=== PATIENT | female | born 1950 | race Caucasian/White ===

== ENCOUNTER 2016-07-05 17:21 | Inpatient (IN) ==
--- NOTE | 2016-07-05 17:32 | Emergency Department Note ---
Disposition Clinical Impression: Encounter for monitoring anti-arrhythmic therapy, Atrial fibrillation with RVR Disposition: Still a Patient Condition: Fair Referrals: Aleksandar Strickland DO [Primary Care Provider] - Time of Disposition: 18:52 Arrhythmia/Palpitations HPI - General Chief Complaint: ED Arrhythmia/Palpitations Stated Complaint: A-fib, JOLLY, high BP Time Seen by Provider: 07/05/16 17:26 Source: patient Mode of arrival: ambulatory Limitations: no limitations Nursing Notes Reviewed: Yes Vital Signs Reviewed: Yes - History of Present Illness HPI Narrative: Patient presents to the ED with the chief complaint of palpitations and shortness breath. Patient has history of A. fib and is on sotalol and Coumadin. States that she sees Dr. Ness, but has not seen him in almost a year. States that she will go in and out of A. fib every few months, but that it only lasts for a few minutes. She states that she felt like she went back into a yesterday night and woke up this morning and still felt like she was in it. She states it makes her feel very short of breath and that she does have some chest discomfort is radiating through to her back into her shoulder blades. States that she checked her blood pressure and it was very high. She also has a history of CHF, but has not been taking her Lasix lately due to to normal leg volumes and no shortness of breath. No fever or chills, abdominal pain, nausea , vomiting, diarrhea, changes in her vision. She states that she does get headaches but that these are from allergies and or no different than usual. - Related Data Home Medications Medication Instructions Recorded Confirmed Aspirin 81 mg PO DAILY 11/10/14 07/05/16 Cinnamon Bark [Cinnamon] 1,000 mg PO DAILY 10/15/15 07/05/16 Psyllium Husk [Daily Fiber] 2 tab PO DAILY 10/15/15 07/05/16 Warfarin [Coumadin] 2.5 mg PO DAILY 10/15/15 07/05/16 Omeprazole [PriLOSEC] 20 mg PO DAILY 11/29/15 07/05/16 Furosemide [Lasix] 40 mg PO DAILY PRN 01/19/16 07/05/16 Budesonide [Pulmicort Flexhaler 180 mcg IH DAILY 03/03/16 07/05/16 180mcg] Amlodipine [Norvasc] 5 mg PO DAILY 07/05/16 07/05/16 Previous Rx's Medication Instructions Recorded Losartan Potassium [Cozaar] 50 mg PO DAILY #30 tab 03/03/16 Sotalol [Betapace] 80 mg PO Q12HR #60 tablet 03/03/16 Allergies Allergy/AdvReac Type Severity Reaction Status Date / Time adhesive tape Allergy Hives Verified 07/05/16 18:59 All systems ED: reviewed and negative except as stated. Cardiovascular: Reports: chest pain, palpitations, dyspnea on exertion. Denies : edema, syncope Respiratory: Reports: dyspnea. Denies: cough Integumentary: Denies: rash Neurological: Reports: headache (chronic ) Past Medical History - Past Medical History Attestation: Yes The following information was validated with the patient. Source: patient Medical history: Reports: asthma, atrial fibrillation, cancer, CHF, hypertension Surgical history: Reports: breast surgery, cancer surgery, hysterectomy Psychiatric history: Reports: anxiety, depression WHARF LABORER history: Reports: no WHARF LABORER history - Social History Smoking Status: Never smoker Smokeless Tobacco Status: No Alcohol use: Reports: none Drug use: Reports: none Physical Exam - General Limitations: no limitations General appearance: alert, in no apparent distress - Head Head exam: atraumatic, normocephalic, normal inspection - Eye Eye exam: Present: normal appearance, PERRL, EOMI - ENT ENT exam: normal exam, normal oropharynx, mucous membranes moist - Neck Neck exam: Present: normal inspection, full ROM, trachea midline - Chest Chest inspection: Present: normal inspection, symmetric chest wall rise - Respiratory Respiratory exam: Present: normal lung sounds bilaterally - Cardiovascular Cardiovascular exam: Present: tachycardia, irregular rhythm, normal heart sounds - Abdominal Exam Abdominal exam: Present: soft, Non-Tender - Extremities Exam Extremities exam: Present: normal inspection, full ROM, normal capillary refill. Absent: tenderness, pedal edema - Neurological Exam Neurological exam: Present: alert, oriented X3 - Psychiatric Psychiatric exam: Present: normal affect, normal mood - Skin Skin exam: Present: warm, dry, intact, normal color Course Course Narrative: Very pleasant 65-year-old female presenting with breakthrough A. fib. She is already on room controlled with sotalol. She sees Dr. Ness, but has not seen him in about a year. She has been cardioverted 3 times previously. Having some chest discomfort as well. EKG shows A. fib as documented. We will check labs, chest x-ray and admit. - Reevaluation(s) Reevaluation #1: Spoke with the on-call local hazmat driver, who recommended admission to the medicine service. Monitor with telemetry overnight and they will likely increase her sotalol morning but may require another cardioversion. Patient agreeable with plan. Time: 18:51 Vital Signs Temperature 98.8 F 07/05/16 17:32 Pulse Rate 141 07/05/16 17:32 Respiratory Rate 18 07/05/16 17:32 Blood Pressure 145/101 07/05/16 17:32 O2 Sat by Pulse Oximetry 94 07/05/16 17:32 Temperature 98.8 F 07/05/16 17:32 Pulse Rate 109 07/05/16 18:46 Respiratory Rate 18 07/05/16 18:46 Blood Pressure 128/58 07/05/16 18:46 O2 Sat by Pulse Oximetry 96 07/05/16 18:46 Oxygen Delivery Oxygen Delivery Room Air Arrhythmia/Palpitations - Medical Records Medical records reviewed: Yes I reviewed the patient's medical records. - Lab Data Lab results reviewed: Yes I reviewed the patient's lab results. Result diagrams: 07/05/16 17:45 07/05/16 17:45 Lab Results 07/05/16 07/05/16 07/05/16 Range/Units 17:45 17:45 17:45 WBC 7.0 (4.3-11.1) K/mcL RBC 5.15 H (3.82-4.97) M/mcL Hgb 14.4 (11.5-15.4) g/dL Hct 43.7 (35.3-44.9) % MCV 84.9 (83.0-100.0) fL MCH 28.0 (28.0-33.3) pg MCHC 33.0 (31.6-35.5) g/dL RDW 14.6 H (11.5-14.5) % Plt Count 315 (140-400) K/mcL MPV 9.4 (9.4-12.4) fL Immature Gran % 0.3 (0-4) % Seg Neutrophils % 70.0 % Lymphocytes % 22.0 % Monocytes % 6.0 % Eosinophils % 1.4 % Basophils % 0.3 % Neutrophils # 4.9 (1.6-8.9) K/mcL Lymphocytes # 1.5 (0.6-4.6) K/mcL Monocytes # 0.4 (0.0-1.3) K/mcL Eosinophils # 0.1 (0.0-0.6) K/mcL Basophils # 0.0 (0.0-0.2) K/mcL Immature Plt Fraction 2.5 (1.1-6.1) % PT 18.6 H (9.4-12.1) Seconds INR 1.7 APTT 32.7 (26.0-36.0) Seconds Sodium 141 (136-145) mEq/L Potassium 4.6 H (3.5-4.5) mEq/L Chloride 106 (98-109) mEq/L Carbon Dioxide 25 (19-29) mEq/L BUN 22 H (7-20) mg/dL Creatinine 0.88 (0.57-1.11) mg/dL Est GFR ( Amer) > 60 (> 60) Est GFR (Non-Af Amer) > 60 (> 60) BUN/Creatinine Ratio 25 (6-26) Glucose 130 H (70-99) mg/dL Calculated Osmolality 297 (280-300) Calcium 9.1 (8.6-10.8) mg/dL Magnesium 2.5 (1.6-2.6) mg/dL Troponin I (0-0.03) ng/mL TSH 1.343 (0.350-4.840) mcIU/mL 07/05/16 Range/Units 17:45 WBC (4.3-11.1) K/mcL RBC (3.82-4.97) M/mcL Hgb (11.5-15.4) g/dL Hct (35.3-44.9) % MCV (83.0-100.0) fL MCH (28.0-33.3) pg MCHC (31.6-35.5) g/dL RDW (11.5-14.5) % Plt Count (140-400) K/mcL MPV (9.4-12.4) fL Immature Gran % (0-4) % Seg Neutrophils % % Lymphocytes % % Monocytes % % Eosinophils % % Basophils % % Neutrophils # (1.6-8.9) K/mcL Lymphocytes # (0.6-4.6) K/mcL Monocytes # (0.0-1.3) K/mcL Eosinophils # (0.0-0.6) K/mcL Basophils # (0.0-0.2) K/mcL Immature Plt Fraction (1.1-6.1) % PT (9.4-12.1) Seconds INR APTT (26.0-36.0) Seconds Sodium (136-145) mEq/L Potassium (3.5-4.5) mEq/L Chloride (98-109) mEq/L Carbon Dioxide (19-29) mEq/L BUN (7-20) mg/dL Creatinine (0.57-1.11) mg/dL Est GFR ( Amer) (> 60) Est GFR (Non-Af Amer) (> 60) BUN/Creatinine Ratio (6-26) Glucose (70-99) mg/dL Calculated Osmolality (280-300) Calcium (8.6-10.8) mg/dL Magnesium (1.6-2.6) mg/dL Troponin I 0.01 (0-0.03) ng/mL TSH (0.350-4.840) mcIU/mL - Radiology Data Radiology results reviewed: Yes I reviewed the patient's radiology results. - EKG Data EKG attestation: Yes I reviewed and interpreted this EKG. EKG results narrative: A. fib with RVR, rate 142, QRS 82, QTC 372, normal axis, ST segment depression that is likely rate dependent. No previous available at this time S.B.Ronda - Klaudia.[email or web address] Situation: Demographics, MOA Background: Presenting Complaint, Relevant PMH, Meds, & Allergies Assessment: Vital Signs, Course and respsone to treatment, Exam Concerns, Patient/Family Expectation, Pertinant Lab Results, Outstanding Labs Recommendation: Barrier(s) to disposition, Recommendation based on pending studies, treatments, or consults S.B.A.Madison Report Given to: Dr. Freddy Sanchez Repor Time: 19:02
--- NOTE | 2016-07-05 17:32 | Emergency Department Note ---
Disposition Clinical Impression: Encounter for monitoring anti-arrhythmic therapy, Atrial fibrillation with RVR Disposition: Still a Patient Condition: Fair General Adult HPI - General Stated complaint: A-fib, JOLLY, high BP Time Seen by Provider: 07/05/16 17:26 - Related Data Home Medications Medication Instructions Recorded Confirmed Aspirin 81 mg PO DAILY 11/10/14 07/05/16 Cinnamon Bark [Cinnamon] 1,000 mg PO DAILY 10/15/15 07/05/16 Psyllium Husk [Daily Fiber] 2 tab PO DAILY 10/15/15 07/05/16 Warfarin [Coumadin] 2.5 mg PO DAILY 10/15/15 07/05/16 Omeprazole [PriLOSEC] 20 mg PO DAILY 11/29/15 07/05/16 Furosemide [Lasix] 40 mg PO DAILY PRN 01/19/16 07/05/16 Budesonide [Pulmicort Flexhaler 180 mcg IH DAILY 03/03/16 07/05/16 180mcg] Amlodipine [Norvasc] 5 mg PO DAILY 07/05/16 07/05/16 Previous Rx's Medication Instructions Recorded Losartan Potassium [Cozaar] 50 mg PO DAILY #30 tab 03/03/16 Sotalol [Betapace] 120 mg PO Q12HR #60 tablet 07/08/16 Allergies Allergy/AdvReac Type Severity Reaction Status Date / Time adhesive tape Allergy Hives Verified 07/05/16 18:59 Past Medical History - Past Medical History Medical history: Reports: asthma, atrial fibrillation, cancer, CHF, hypertension Surgical history: Reports: breast surgery, cancer surgery, hysterectomy Psychiatric history: Reports: anxiety, depression HAND FOLDER history: Reports: no HAND FOLDER history - Social History Smoking Status: Never smoker Smokeless Tobacco Status: No Alcohol use: Reports: none Drug use: Reports: none Course Vital Signs Temperature 98.8 F 07/05/16 17:32 Pulse Rate 141 07/05/16 17:32 Respiratory Rate 18 07/05/16 17:32 Blood Pressure 145/101 07/05/16 17:32 O2 Sat by Pulse Oximetry 94 07/05/16 17:32 Temperature 99.1 F 07/08/16 11:11 Pulse Rate 58 07/08/16 11:11 Respiratory Rate 16 07/08/16 11:11 Blood Pressure 112/63 07/08/16 11:11 O2 Sat by Pulse Oximetry 93 07/08/16 11:11 Oxygen Delivery Oxygen Delivery Room Air Medical Decision Making - Lab Data Result diagrams: 07/06/16 04:43 07/06/16 04:43 Lab Results 07/05/16 07/05/16 07/05/16 Range/Units 17:45 17:45 17:45 WBC 7.0 (4.3-11.1) K/mcL RBC 5.15 H (3.82-4.97) M/mcL Hgb 14.4 (11.5-15.4) g/dL Hct 43.7 (35.3-44.9) % MCV 84.9 (83.0-100.0) fL MCH 28.0 (28.0-33.3) pg MCHC 33.0 (31.6-35.5) g/dL RDW 14.6 H (11.5-14.5) % Plt Count 315 (140-400) K/mcL MPV 9.4 (9.4-12.4) fL Immature Gran % 0.3 (0-4) % Seg Neutrophils % 70.0 % Lymphocytes % 22.0 % Monocytes % 6.0 % Eosinophils % 1.4 % Basophils % 0.3 % Neutrophils # 4.9 (1.6-8.9) K/mcL Lymphocytes # 1.5 (0.6-4.6) K/mcL Monocytes # 0.4 (0.0-1.3) K/mcL Eosinophils # 0.1 (0.0-0.6) K/mcL Basophils # 0.0 (0.0-0.2) K/mcL Immature Plt Fraction 2.5 (1.1-6.1) % PT 18.6 H (9.4-12.1) Seconds INR 1.7 APTT 32.7 (26.0-36.0) Seconds Sodium 141 (136-145) mEq/L Potassium 4.6 H (3.5-4.5) mEq/L Chloride 106 (98-109) mEq/L Carbon Dioxide 25 (19-29) mEq/L BUN 22 H (7-20) mg/dL Creatinine 0.88 (0.57-1.11) mg/dL Est GFR ( Amer) > 60 (> 60) Est GFR (Non-Af Amer) > 60 (> 60) BUN/Creatinine Ratio 25 (6-26) Glucose 130 H (70-99) mg/dL POC Glucose (58-89) Calculated Osmolality 297 (280-300) Calcium 9.1 (8.6-10.8) mg/dL Magnesium 2.5 (1.6-2.6) mg/dL Troponin I (0-0.03) ng/mL TSH 1.343 (0.350-4.840) mcIU/mL 07/05/16 07/05/16 07/06/16 Range/Units 17:45 20:37 04:43 WBC 7.2 (4.3-11.1) K/mcL RBC 5.51 H (3.82-4.97) M/mcL Hgb 15.3 (11.5-15.4) g/dL Hct 46.8 H (35.3-44.9) % MCV 84.9 (83.0-100.0) fL MCH 27.8 L (28.0-33.3) pg MCHC 32.7 (31.6-35.5) g/dL RDW 14.7 H (11.5-14.5) % Plt Count 319 (140-400) K/mcL MPV 9.7 (9.4-12.4) fL Immature Gran % 0.3 (0-4) % Seg Neutrophils % 64.4 % Lymphocytes % 26.4 % Monocytes % 6.5 % Eosinophils % 1.8 % Basophils % 0.6 % Neutrophils # 4.6 (1.6-8.9) K/mcL Lymphocytes # 1.9 (0.6-4.6) K/mcL Monocytes # 0.5 (0.0-1.3) K/mcL Eosinophils # 0.1 (0.0-0.6) K/mcL Basophils # 0.0 (0.0-0.2) K/mcL Immature Plt Fraction 2.6 (1.1-6.1) % PT (9.4-12.1) Seconds INR APTT (26.0-36.0) Seconds Sodium (136-145) mEq/L Potassium (3.5-4.5) mEq/L Chloride (98-109) mEq/L Carbon Dioxide (19-29) mEq/L BUN (7-20) mg/dL Creatinine (0.57-1.11) mg/dL Est GFR ( Amer) (> 60) Est GFR (Non-Af Amer) (> 60) BUN/Creatinine Ratio (6-26) Glucose (70-99) mg/dL POC Glucose 109 H (58-89) Calculated Osmolality (280-300) Calcium (8.6-10.8) mg/dL Magnesium (1.6-2.6) mg/dL Troponin I 0.01 (0-0.03) ng/mL TSH (0.350-4.840) mcIU/mL 07/06/16 07/06/16 Range/Units 04:43 04:43 WBC (4.3-11.1) K/mcL RBC (3.82-4.97) M/mcL Hgb (11.5-15.4) g/dL Hct (35.3-44.9) % MCV (83.0-100.0) fL MCH (28.0-33.3) pg MCHC (31.6-35.5) g/dL RDW (11.5-14.5) % Plt Count (140-400) K/mcL MPV (9.4-12.4) fL Immature Gran % (0-4) % Seg Neutrophils % % Lymphocytes % % Monocytes % % Eosinophils % % Basophils % % Neutrophils # (1.6-8.9) K/mcL Lymphocytes # (0.6-4.6) K/mcL Monocytes # (0.0-1.3) K/mcL Eosinophils # (0.0-0.6) K/mcL Basophils # (0.0-0.2) K/mcL Immature Plt Fraction (1.1-6.1) % PT 20.2 H (9.4-12.1) Seconds INR 1.8 APTT (26.0-36.0) Seconds Sodium 141 (136-145) mEq/L Potassium 4.0 (3.5-4.5) mEq/L Chloride 106 (98-109) mEq/L Carbon Dioxide 24 (19-29) mEq/L BUN 17 (7-20) mg/dL Creatinine 0.73 (0.57-1.11) mg/dL Est GFR ( Amer) > 60 (> 60) Est GFR (Non-Af Amer) > 60 (> 60) BUN/Creatinine Ratio 23 (6-26) Glucose 122 H (70-99) mg/dL POC Glucose (58-89) Calculated Osmolality 295 (280-300) Calcium 9.1 (8.6-10.8) mg/dL Magnesium 2.3 (1.6-2.6) mg/dL Troponin I (0-0.03) ng/mL TSH (0.350-4.840) mcIU/mL Critical Care Time Critical Care Time: Yes Total Critical Care Time: 30 Attestation: Patient presents with A. fib with RVR requiring IV Cardizem for rate control. Admitted to the medicines service Attestation Statement - Attestation Attestation: I examined this patient and my medical decision-making was reviewed with the HOUSING ASSISTANT/PA/Advanced Practice Nurse/Resident Physician. I agree with the documented findings, disposition and treatment plan as described except to the extent set forth below. [id number] time provided Patient complains of palpitations. She has history of atrial fibrillation and takes Coumadin. EKG reviewed by me showing a tachycardic narrow complex rhythm. Patient seen and evaluated in conjunction with the resident physician Dr. Benito
[2016-07-05 17:54] LABS: Basophils % 0.3 %; Eosinophils # 0.1 K/mcL (0.0-0.6); Eosinophils % 1.4 %; Hematocrit 43.7 % (35.3-44.9); Hemoglobin 14.4 g/dL (11.5-15.4); Immature Granulocytes % 0.3 % (0-4); Immature Platelets 2.5 % (1.1-6.1); Lymphocytes # 1.5 K/mcL (0.6-4.6); Mean Corpuscular Volume 84.9 fL (83.0-100.0); Mean Platelet Volume 9.4 fL (9.4-12.4); Monocytes # 0.4 K/mcL (0.0-1.3); Neutrophils # 4.9 K/mcL (1.6-8.9); Platelet Count 315 K/mcL (140-400); Red Blood Count 5.15 M/mcL (3.82-4.97); Red Cell Distribution Width 14.6 % (11.5-14.5)
[2016-07-05 17:59] LABS: INR 1.7; Prothrombin Time 18.6 Seconds (9.4-12.1)
[2016-07-05 18:01] LABS: Activated Partial Thrombo Time 32.7 Seconds (26.0-36.0)
[2016-07-05 18:06] LABS: BUN/Creatinine Ratio 25 (6-26); Blood Urea Nitrogen 22 mg/dL (7-20); Calcium 9.1 mg/dL (8.6-10.8); Carbon Dioxide 25 mEq/L (19-29); Chloride 106 mEq/L (98-109); Glucose 130 mg/dL (70-99); Magnesium 2.5 mg/dL (1.6-2.6); Osmolality,Calculated 297 (280-300); Potassium 4.6 mEq/L (3.5-4.5); Sodium 141 mEq/L (136-145); eGFR For African Americans > 60 (> 60); eGFR For Non-African Americans > 60 (> 60)
[2016-07-05 18:29] LABS: Thyroid Stimulating Hormone 1.343 mcIU/mL (0.350-4.840)
[2016-07-05] MEDS ORDERED: Naloxone 0.4 MG/ML INJ IVP PRN (21:27)
[2016-07-05] MEDS ORDERED: Ondansetron 4 MG/2 ML VIAL IVP PRN (21:27)
[2016-07-05] MEDS ORDERED: Acetaminophen 325 MG TABLET PO PRN (21:27)
[2016-07-05] MEDS ORDERED: Furosemide 40 MG TABLET PO PRN (21:31)
[2016-07-05] MEDS ORDERED: *HR* Warfarin 2.5 MG TABLET PO ONE (22:00)
--- NOTE | 2016-07-05 22:04 | Internal Med History&Physical ---
Date of Encounter: 07/05/16 Time of Encounter: 21:00 Assessment and Plan (1) Atrial fibrillation with RVR Current visit: Yes Status: Acute Patient has history of A. fib. She is on Coumadin for anticoagulation and sotalol for rate control. - We will put the patient on Cardizem drip, closely monitor heart rate. - May switch Cardizem drip to by mouth medication if heart rate is well controlled. - Check TSH, magnesium, BMP. Optimize electrolytes. - Closesly monitor patient. Patient is at high risk because she is on Cardizem drip, need close monitoring. (2) DVT prophylaxis Current visit: No Status: Acute Patient is on Coumadin (3) HTN (hypertension) Current visit: No Status: Acute BP is stable. Continue home medication Qualifiers: Hypertension type: essential hypertension Qualified Code(s): I10 - Essential (primary) hypertension Internal Medicine - H&P: HPI Chief complaint: Palpitation Admitted From: Home Plans for Post Hospital Care: Home History of present illness: Ms. Merida is a 65 year old female with known history of A. fib presented to the ER for palpitations. Patient said that the palpitation started suddenly when she was in her eye doctor office. Heart rate was 158 at that time. With mild shortness of breath. Patient denies chest pain, nausea, vomiting. She denies recent URI symptoms. No cough, no fever. Patient came to ER and was found a Fib with a rapid ventricular response. She was admitted for further management. I have discussed CODE STATUS with her in the emergency room. She has a CODE STATUS of full code. Past Med Surg Social Fam HX - Past Medical History Medical history: arthritis, asthma, atrial fibrillation, cancer, CHF, hypertension, TIA Psychiatric history: anxiety, depression - Past Surgical History Surgical History: breast surgery, cancer surgery, hysterectomy - Social History Smoking Status: Never smoker Smokeless Tobacco Status: No Alcohol use: none Drug use: none - Family History Father Family Member Ethnicity: Non- Living Status: Hx Family Cardiac Disorders: Yes (hypertension) Hx Family Respiratory Disorders: No Hx Family Cancer: No Hx Family GI Disorders: No Hx Family Endocrine Disorder: Yes (diabetes) Hx Family Neuromuscular Disorders: No Hx Family Neurologic Disorders: No Hx Family HEENT Disorders: No Hx Family Autoimmune Disorders: No Mother Adopted: [place]: Christie Age: 88 Family Member Ethnicity: Non- Living Status: Still Living Hx Family Cardiac Disorders: Yes (Afib) Hx Family Respiratory Disorders: No Hx Family Cancer: Yes (Colon) Hx Family GI Disorders: Yes (Cancer) Hx Family Genitourinary Disorders: Yes (UTI) Hx Family Endocrine Disorder: Yes Hx Family Musculoskeletal Disorders: No Hx Family Neuromuscular Disorders: Yes (Stroke 2016) Hx Family Neurologic Disorders: No Hx Family HEENT Disorders: No Hx Family Autoimmune Disorders: No Hx Family Reproductive Disorders: No Hx Family Psychosocial Disorders: No Hx Family Medical Disorders: No Internal Medicine - H&P: Meds Aspirin 81 mg PO DAILY 11/10/14 [History] Cinnamon Bark [Cinnamon] 1,000 mg PO DAILY 10/15/15 [History] Psyllium Husk [Daily Fiber] 2 tab PO DAILY 10/15/15 [History] Warfarin [Coumadin] 2.5 mg PO DAILY 10/15/15 [History] Omeprazole [PriLOSEC] 20 mg PO DAILY 11/29/15 [History] Furosemide [Lasix] 40 mg PO DAILY PRN 01/19/16 [History] Budesonide [Pulmicort Flexhaler 180mcg] 180 mcg IH DAILY 03/03/16 [History] Losartan Potassium [Cozaar] 50 mg PO DAILY #30 tab 03/03/16 [Rx] Sotalol [Betapace] 80 mg PO Q12HR #60 tablet 03/03/16 [Rx] Amlodipine [Norvasc] 5 mg PO DAILY 07/05/16 [History] Allergies adhesive tape Allergy (Verified 07/05/16 18:59) Hives All Systems PM: A 10-system review of systems was performed and is negative for pertinent findings except as documented above in the HPI. - Constitutional Constitutional: no chills, no fever(s), no night sweats - EENT Eyes: no change in vision, no discharge, no pain, no photophobia Ears: no ear discharge, no ear pain, no tinnitus Nose, mouth and throat: no dysphagia, no nasal discharge, no neck pain, no sore throat - Cardiovascular Cardiovascular ROS IM: palpitations, no chest pain, no diaphoresis, no dyspnea, no lightheadedness, no syncope - Respiratory Respiratory: no cough, no dyspnea, no wheezing, no excessive phlegm production - Gastrointestinal Gastrointestinal: no abdominal pain, no diarrhea, no hematemesis, no hematochezia, no melena, no nausea, no vomiting - Genitourinary Genitourinary: no change in urinary stream, no dysuria, no flank pain, no hematuria - Musculoskeletal Musculoskeletal ROS IM: no numbness, no tingling - Integumentary Integumentary IM: no rash, no unusual bruising - Neurological Neurological ROS: no confusion, no convulsions, no focal weakness, no numbness, no tingling, no tremor(s) - Hematologic/Lymphatic Hematologic/Lymphatic: no easy bruising - Constitutional Vitals: Temp Pulse Resp BP Pulse Ox 97.7 F 94 22 141/93 96 07/05/16 21:33 07/05/16 21:33 07/05/16 21:33 07/05/16 21:33 07/05/16 21:33 General appearance: Present: A&O X 3, no acute distress, answers questions appropriately - Head Head exam: Present: atraumatic, normocephalic - Eye Eye exam: Present: PERRL, conjuntiva pink, sclera anicteric Pupils: Present: PERRL - Neck Neck exam general surgery: Present: supple, trachea midline. Absent: lymphadenopathy - Respiratory Respiratory exam: Present: CTAB. Absent: accessory muscle use, rales, rhonchi, wheezes - Cardiovascular Cardiovascular exam: Present: irregular rhythm, +S1, +S2, tachycardia. Absent: diastolic murmur, gallop, rubs, systolic murmur - GI/Abdominal GI/Abdominal exam: Present: normal bowel sounds, soft, no peritoneal signs. Absent: distended, tenderness - Extremities Exam Extremities exam: Present: warm, radial pulses palpable and symetrical. Absent : calf tenderness, cyanotic, pedal edema - Neurological Exam Neurological exam: Present: CN II-XII intact, oriented X3, no focal deficits. Absent: pronater drift, facial droop, speech deficit - Skin Skin exam: Present: dry, intact Internal Med - H&P Results - Labs CBC & Chem 7: 07/05/16 17:45 07/05/16 17:45 - EKG Data -: EKG Interpreted by Myself Rate: tachycardia
[2016-07-06 06:25] LABS: Basophils % 0.6 %; Eosinophils # 0.1 K/mcL (0.0-0.6); Eosinophils % 1.8 %; Hematocrit 46.8 % (35.3-44.9); Hemoglobin 15.3 g/dL (11.5-15.4); Immature Granulocytes % 0.3 % (0-4); Immature Platelets 2.6 % (1.1-6.1); Lymphocytes # 1.9 K/mcL (0.6-4.6); Lymphocytes % 26.4 %; Mean Corpuscular HGB Conc 32.7 g/dL (31.6-35.5); Mean Corpuscular Hemoglobin 27.8 pg (28.0-33.3); Mean Corpuscular Volume 84.9 fL (83.0-100.0); Mean Platelet Volume 9.7 fL (9.4-12.4); Monocytes # 0.5 K/mcL (0.0-1.3); Monocytes % 6.5 %; Neutrophils # 4.6 K/mcL (1.6-8.9); Platelet Count 319 K/mcL (140-400); Red Blood Count 5.51 M/mcL (3.82-4.97); Red Cell Distribution Width 14.7 % (11.5-14.5); Segmented Neutrophils % 64.4 %
[2016-07-06 06:26] LABS: INR 1.8; Prothrombin Time 20.2 Seconds (9.4-12.1)
[2016-07-06 06:59] LABS: BUN/Creatinine Ratio 23 (6-26); Blood Urea Nitrogen 17 mg/dL (7-20); Calcium 9.1 mg/dL (8.6-10.8); Carbon Dioxide 24 mEq/L (19-29); Chloride 106 mEq/L (98-109); Glucose 122 mg/dL (70-99); Magnesium 2.3 mg/dL (1.6-2.6); Osmolality,Calculated 295 (280-300); Sodium 141 mEq/L (136-145); eGFR For African Americans > 60 (> 60); eGFR For Non-African Americans > 60 (> 60)
[2016-07-06] MEDS: Beclomethasone 80mcg MDI IH SCH ×2 (07:57→21:28)
[2016-07-06] MEDS: Aspirin 81 MG TAB.CHEW PO SCH (09:05)
[2016-07-06] MEDS: amLODIPine 5 MG TABLET PO SCH (09:06)
--- NOTE | 2016-07-06 10:35 | Electrocardiograph Report ---
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
--- NOTE | 2016-07-06 13:44 | Internal Med Progress Note ---
Date of Encounter: 07/06/16 Time of Encounter: 10:30 - Assessment and plan (1) Atrial fibrillation with rapid ventricular response Current Visit: No Status: Resolved Assessment and plan: Rate now controlled. By mouth Cardizem was added to her regimen. Telemetry reviewed. Heart rate has been averaging in the 70s today. We will keep an observe her overnight. She states that this has happened in the past and she was started on metoprolol and she states that made her heart rate and her blood pressure go too low. We will observe overnight. In further review of her chart , patient has had several recent cardioversions, will bring cardiology on board (2) Diabetes Current Visit: No Status: Chronic Assessment and plan: Appears well controlled at home. Continue sliding scale while admitted. Qualifiers: Diabetes mellitus type: type 2 Diabetes mellitus complication status: with circulatory complication Diabetes mellitus complication detail: with other circulatory complications Diabetes mellitus senior care insulin use: without terminal press operator use Qualified Code(s): E11.59 - Type 2 diabetes mellitus with other circulatory complications (3) HTN (hypertension) Current Visit: No Status: Chronic Assessment and plan: Controlled. We will continue to trend. At home, patient is on amlodipine 5 mg daily, sotalol 80 mg twice a day, losartan 50 mg daily, furosemide 40 mg daily as needed. Qualifiers: Hypertension type: essential hypertension Qualified Code(s): I10 - Essential (primary) hypertension (4) Atrial fibrillation Current Visit: No Status: Chronic Qualifiers: Atrial fibrillation type: paroxysmal Qualified Code(s): I48.0 - Paroxysmal atrial fibrillation (5) CHF (congestive heart failure) Current Visit: No Status: Chronic Assessment and plan: Euvolemic on examination. Echocardiogram from January 2016 reviewed ejection fraction 60% with indeterminant diastolic function. She is on diuretics at home. Chronic diastolic heart failure without acute exacerbation. Qualifiers: Congestive heart failure type: diastolic Congestive heart failure chronicity: chronic Qualified Code(s): I50.32 - Chronic diastolic (congestive ) heart failure (6) DVT prophylaxis Current Visit: No Status: Acute Assessment and plan: Slightly subtherapeutic on Coumadin with an INR of 1.8, pharmacy to dose. IPC' s ordered in the meantime- can DC if she becomes therapeutic - Subjective Interval history: Patient seen and examined. On examination, patient sitting upright in bed conversing with her sister. Patient denies pain or shortness of breath. She states she feels a lot better. She states she is eating well. - Constitutional Vitals: Temp Pulse Resp BP Pulse Ox 97.4 F L 58 15 130/74 95 07/06/16 11:18 07/06/16 11:18 07/06/16 11:18 07/06/16 11:18 07/06/16 11:18 General appearance: Present: A&O X 3, pleasant, no acute distress, answers questions appropriately - Head Head exam: Present: atraumatic, normocephalic - Eye Eye exam: Present: PERRL, conjuntiva pink, sclera anicteric Pupils: Present: PERRL - Neck Neck exam general surgery: Present: supple, trachea midline. Absent: lymphadenopathy - Respiratory Respiratory exam: Present: CTAB. Absent: accessory muscle use, rales, respiratory distress, rhonchi, wheezes - Cardiovascular Cardiovascular exam: Present: RRR, +S1, +S2. Absent: diastolic murmur, gallop, rubs, systolic murmur - GI/Abdominal GI/Abdominal exam: Present: normal bowel sounds, soft, no peritoneal signs. Absent: distended, tenderness - Extremities Exam Extremities exam: Present: warm, radial pulses palpable and symetrical. Absent : calf tenderness, cyanotic, pedal edema - Neurological Exam Neurological exam: Present: alert, CN II-XII intact, normal gait, oriented X3, no focal deficits, strengths equal and symetr throughout. Absent: pronater drift, facial droop, speech deficit - Skin Skin exam: Present: dry, intact, normal color, warm Internal Medicine: Result - Labs CBC & Chem 7: 07/06/16 04:43 07/06/16 04:43 Labs: Short CBC 07/06/16 Range/Units 04:43 WBC 7.2 (4.3-11.1) K/mcL Hgb 15.3 (11.5-15.4) g/dL Hct 46.8 H (35.3-44.9) % Plt Count 319 (140-400) K/mcL Neutrophils # 4.6 (1.6-8.9) K/mcL BMP 07/06/16 04:43 Sodium 141 Potassium 4.0 Chloride 106 Carbon Dioxide 24 BUN 17 Creatinine 0.73 Glucose 122 H Calcium 9.1 - ABG Interpretation ABG results: PT/INR, D-dimer PT 20.2 Seconds (9.4-12.1) H 07/06/16 04:43 Consult Discharge Plan - Plan
--- NOTE | 2016-07-06 15:33 | Cardiology Consult Note ---
<Kin Ray - Last Filed: 07/06/16 16:24> Date of Encounter: 07/06/16 Time of Encounter: 15:26 Assessment and Plan (1) Atrial fibrillation with rapid ventricular response Current Visit: Yes Status: Acute Patient with known history of afib on coumadin and history of three prior cardioversions who presented to the ED with complaint of palpitations and shortness of breath and determined to be in afib with rvr, rate 142 on ekg. CXR revealed no acute cardio pulm process. Patient was started on cardizem drip, overnight rates controlled. Continued home dose of sotalol. This morning patient was started on cardizem po and continue home dose of sotalol. Vitals: Temp 97.4, Pulse 58, Resp 15, bp 130/74, 95% on room air. Troponin 0.01, Potassium 4.0, Magnesium 2.3, TSH 1.343, PT 20.2, INR 1.8 Last echo completed 01/10/16 revealed LVEF 60, normal LV size and function, inderterminate diastolic function, mildly dilated RV with normal function, mild mitral regurg, moderate tricuspid regurg. LHC 10/19/15 revealed minimal CAD, EF 65%. It appears that patient is now in normal sinus rhythm with rate 60 and stable bp. Repeat EKG reveals normal sinus rhythm. Patient denies lightheadedness, dizziness, headaches, weakness, chest pain or pressure, palpitations, or shortness of breath since rate controlled and while ambulating down hallways. History of bradycardic episodes on cardizem and Toprol, and failed Rhythmol therapy prior. According to [facility], Toprol was discontinued on 02/29/16 due to bradycardia. Inconsistent with eCW med list, but consistent with patient not taking Toprol. Patient started on Sotalol on 02/28/16. Increase Sotalol to 120mg q12h. Discontinue cardizem. Continue Coumadin. Repeat EKG in the morning. Follow up with Cardiology as outpatient with Dr. Ness in afib clinic. Cardio will follow up with the patient tomorrow morning. (2) HTN (hypertension) Current Visit: Yes Status: Chronic Bp 130/74, controlled and stable. Continue home medications for chronic disease management. Losartan and Norvasc. Qualifiers: Hypertension type: essential hypertension Qualified Code(s): I10 - Essential (primary) hypertension Discussion w patient/family: The assessment and plan as outlined above was discussed with the patient and/or family members who expressed understanding and agreement. All questions were answered. Thank you for involving us in the care of your patient. Please call with any questions. History of Present Illness Consult date: 07/06/16 Requesting physician: Jaida Felix Consult reason: afib, new medication regimen Chief complaint: Palpitations History of present illness: Ms. Merida is a 65 year old female with history of afib on coumadin, hypertension, history of TIA, and history of breast cancer s/p mastectomy who presented to the ED on 07/05/16 with complaint of palpitations and shortness of breath that started suddenly while at the doctors office. Patient reports that she had noticed her heart going in and out of rhythm over night and in the morning prior to arrival. She noted that when she took her bp it was reading errors. Patient was determined to be in afib rvr with rate of 142 on ekg. CXR revealed no acute cardiopulm process. Patient did also report some mild headaches that she associates with her seasonal allergies. Patient denies fevers, chills, sweats, nausea, vomiting, chest pain or pressure, weakness, or loss of sensation. Patient was started on Cardizem drip and transitioned to PO Cardizem this morning after rates were controlled overnight. Patient denies fevers, chills, sweats, changes in vision or hearing, lightheadedness, dizziness, nausea, vomiting, chest pain or pressure, palpitations, shortness of breath, abdominal pain, changes in bowels or bladder, weakness, or loss of sensation overnight. Patient has been ambulating up and down the hallway without chest pain or pressure, palpitations, or shortness of breath. Cardio was consulted to evaluate patient with afib and new medication regimen now to include cardizem po. Past Med Surg Social Fam HX - Past Medical History Medical history: arthritis, asthma, atrial fibrillation, cancer, CHF, hypertension, TIA Psychiatric history: anxiety, depression - Past Surgical History Surgical History: breast surgery, cancer surgery, hysterectomy - Social History Smoking Status: Never smoker Smokeless Tobacco Status: No Alcohol use: none Drug use: none - Family History Father Family Member Ethnicity: Non- Living Status: Hx Family Cardiac Disorders: Yes (hypertension) Hx Family Respiratory Disorders: No Hx Family Cancer: No Hx Family GI Disorders: No Hx Family Endocrine Disorder: Yes (diabetes) Hx Family Neuromuscular Disorders: No Hx Family Neurologic Disorders: No Hx Family HEENT Disorders: No Hx Family Autoimmune Disorders: No Mother Adopted: [place]: Christie Age: 88 Family Member Ethnicity: Non- Living Status: Still Living Hx Family Cardiac Disorders: Yes (Afib) Hx Family Respiratory Disorders: No Hx Family Cancer: Yes (Colon) Hx Family GI Disorders: Yes (Cancer) Hx Family Genitourinary Disorders: Yes (UTI) Hx Family Endocrine Disorder: Yes Hx Family Musculoskeletal Disorders: No Hx Family Neuromuscular Disorders: Yes (Stroke 2016) Hx Family Neurologic Disorders: No Hx Family HEENT Disorders: No Hx Family Autoimmune Disorders: No Hx Family Reproductive Disorders: No Hx Family Psychosocial Disorders: No Hx Family Medical Disorders: No Medications and Allergies Aspirin 81 mg PO DAILY 11/10/14 [History] Cinnamon Bark [Cinnamon] 1,000 mg PO DAILY 10/15/15 [History] Psyllium Husk [Daily Fiber] 2 tab PO DAILY 10/15/15 [History] Warfarin [Coumadin] 2.5 mg PO DAILY 10/15/15 [History] Omeprazole [PriLOSEC] 20 mg PO DAILY 11/29/15 [History] Furosemide [Lasix] 40 mg PO DAILY PRN 01/19/16 [History] Budesonide [Pulmicort Flexhaler 180mcg] 180 mcg IH DAILY 03/03/16 [History] Losartan Potassium [Cozaar] 50 mg PO DAILY #30 tab 03/03/16 [Rx] Sotalol [Betapace] 80 mg PO Q12HR #60 tablet 03/03/16 [Rx] Amlodipine [Norvasc] 5 mg PO DAILY 07/05/16 [History] Allergies adhesive tape Allergy (Verified 07/05/16 18:59) Hives All Systems Review: A 10-system review of systems was performed and is negative for pertinent findings except as documented above in the HPI. - Constitutional Constitutional: headache(s), no chills, no fever(s), no night sweats, no weakness - EENT Eyes: no blurred vision, no loss of vision Nose, mouth and throat: no dysphagia - Cardiovascular Cardiovascular: as per HPI, dyspnea at rest, irregular heart rhythm, palpitations, no chest pain at rest, no chest pain with exertion, no diaphoresis , no dyspnea on exertion, no radiating jaw, neck or arm pain, no lightheadedness , no syncope - Respiratory Respiratory: dyspnea, no cough - Gastrointestinal Gastrointestinal: no abdominal pain, no constipation, no diarrhea, no nausea - Genitourinary Genitourinary: no dysuria - Neurological Neurological: no abnormal speech, no dizziness, no focal weakness, no loss of vision, no memory loss, no numbness, no syncope, no tingling Physical Examination General: Conversant, No Apparent Distress HEENT: Atraumatic, Normocephaly, Mucus Membranes Moist Neck: No JVD, Normal carotid pulses Cardiac: Reg Rate and Rhythm, Normal S1 and S2, No Murmur Lungs: Normal Breath Sounds, No Wheeze, Rales, Rhonchi Neuro: Alert and responsive, No focal deficits noted Abdomen: Soft, Non-Tender Skin: No rashes noted on visualized skin Musculoskeletal: No Chest Wall Tenderness Extremities: No Clubbing, No Cyanosis, No Edema, Normal Pulses Results 07/06/16 04:43 07/06/16 04:43 Consult Discharge Plan - Plan Referrals: Aleksandar Strickland DO [Primary Care Provider] - 07/14/16 12:00 pm <Lisa Burnett - Last Filed: 07/06/16 16:46> Date of Encounter: 07/06/16 Assessment and Plan Discussion w patient/family: The assessment and plan as outlined above was discussed with the patient and/or family members who expressed understanding and agreement. All questions were answered. Thank you for involving us in the care of your patient. Please call with any questions. History of Present Illness History of present illness: Ms. Merida is a 65 year old female All Systems Review: A 10-system review of systems was performed and is negative for pertinent findings except as documented above in the HPI. Physical Examination Vital Signs, Last 4 Hours Temp Pulse Resp BP Pulse Ox 07/06/16 15:32 97.7 F 58 14 113/69 95 Results 07/06/16 04:43 07/06/16 04:43 - Attending Attestation I examined this patient and my medical decision-making was reviewed with the ATTIC FANS MECHANIC/PA/Advanced Practice Nurse/Resident Physician. I agree with the documented findings, disposition and treatment plan. Ms. Merida presents with AFIB RVR. Previously, she had failed rhythmol therapy and sotalol was initiated in February 2016. Due to bradycardia, cardizem and toprol were stopped at that time. She states that she's had 3 to 4 episodes of PAF lasting for about 10 minutes since Sotalol was started in addition to her presenting symptoms prompting this visit. Given ongoing symptoms, we have recommended uptitrating sotalol to 120mg BID. We will monitor for bradycardia. She is anticoagulated on coumadin. INR is 1.8 today. Primary team has increased her coumadin dose. She is back in NSR.
[2016-07-06] MEDS ORDERED: Warfarin perPT PO PRN (18:00)
[2016-07-06] MEDS: *HR* Warfarin 2.5 MG TABLET PO SCH (18:55)
[2016-07-07 05:54] LABS: INR 2.2; Prothrombin Time 23.9 Seconds (9.4-12.1)
[2016-07-07] MEDS: Beclomethasone 80mcg MDI IH SCH ×2 (07:54→21:48)
--- NOTE | 2016-07-07 08:14 | Cardiology Progress Note ---
<Kin Ray - Last Filed: 07/07/16 10:43> Date of Encounter: 07/07/16 Time of Encounter: 08:12 Assessment and Plan (1) Atrial fibrillation with rapid ventricular response Current Visit: Yes Status: Acute Patient with known history of afib on coumadin and history of three prior cardioversions who presented to the ED with complaint of palpitations and shortness of breath and determined to be in afib with rvr, rate 142 on ekg. CXR revealed no acute cardio pulm process. Patient was discontinued on Cardizem due to history of bradycardic episodes and continued on Sotalol at increased dose of 120mg bid. Overnight patient reports doing well with no new complaints. Telemetry reviewed. Normal sinus rhythm, rate between 48-111, average 61 bpm. EKG revealed sinus bradycardia, rate 50bpm, prolonged QT interval. Pr int 177ms , QRS 75 ms, QT/QTc 491-466 ms, P-R-T axes 55 38 49. PT 23.9, INR 2.2 Vitals: Temp 97.5, Pulse 55, Resp 20, bp 124-69, 94% on room air. Last echo completed 01/10/16 revealed LVEF 60, normal LV size and function, inderterminate diastolic function, mildly dilated RV with normal function, mild mitral regurg, moderate tricuspid regurg. LHC 10/19/15 revealed minimal CAD, EF 65%. History of bradycardic episodes on cardizem and Toprol, and failed Rhythmol therapy prior. According to [employer], Toprol was discontinued on 02/29/16 due to bradycardia. Inconsistent with eCW med list, but consistent with patient not taking Toprol. Patient started on Sotalol on 02/28/16. Increased dose of sotalol 07/06/16 evening. Continue Sotalol 120mg bid. Continue Coumadin. Follow up with Cardiology as outpatient with Dr. Ness in afib clinic. (2) HTN (hypertension) Current Visit: Yes Status: Chronic Bp 124/69, controlled and stable. Continue home medications for chronic disease management. Losartan and Norvasc. Qualifiers: Hypertension type: essential hypertension Qualified Code(s): I10 - Essential (primary) hypertension Discussion w patient/family: The assessment and plan as outlined above was discussed with the patient and/or family members who expressed understanding and agreement. All questions were answered. Thank you for involving us in the care of your patient. Please call with any questions. Subjective Principal diagnosis: Afib Interval history: Patient reports doing well overnight, no new complaints. Patient denies lightheadedness, dizziness, chest pain or pressure, palpitations, shortness of breath, and weakness. Patient denies fevers, chills, sweats, nausea, vomiting, abdominal pain, changes in bowels or bladder, or loss of sensation. Telemetry reviewed. Rate between 48-111, average 61bpm, continues to be sinus rhythm. Objective Vital Signs, Last 4 Hours Temp Pulse Resp BP Pulse Ox 07/07/16 07:13 97.5 F L 55 20 124/69 94 General: Conversant, No Apparent Distress HEENT: Atraumatic, Normocephaly, Mucus Membranes Moist Neck: No JVD, Normal carotid pulses Cardiac: Reg Rate and Rhythm, Normal S1 and S2, No Murmur Lungs: Normal Breath Sounds, No Wheeze, Rales, Rhonchi Neuro: Alert and responsive, No focal deficits noted Abdomen: Soft, Non-Tender Skin: No rashes noted on visualized skin Musculoskeletal: No Chest Wall Tenderness Extremities: No Clubbing, No Cyanosis, No Edema, Normal Pulses Results 07/06/16 04:43 07/06/16 04:43 Lab Results 07/07/16 05:35 INR 2.2 Consult Discharge Plan - Plan Referrals: Aleksandar Strickland DO [Primary Care Provider] - 07/14/16 12:00 pm <Lisa Burnett - Last Filed: 07/07/16 14:34> Date of Encounter: 07/07/16 Assessment and Plan Discussion w patient/family: Ms. Meirda has no new complaints. Heart rates are stable. No new ECG changes. Continue sotalol. She is anticoagulated and therapeutic on coumadin. Objective Vital Signs, Last 4 Hours Temp Pulse Resp BP Pulse Ox 07/07/16 11:04 97.5 F L 50 20 116/80 94 Results 07/06/16 04:43 07/06/16 04:43 Lab Results 07/07/16 05:35 INR 2.2
[2016-07-07] MEDS: Aspirin 81 MG TAB.CHEW PO SCH (08:21)
[2016-07-07] MEDS: amLODIPine 5 MG TABLET PO SCH (08:21)
--- NOTE | 2016-07-07 12:22 | Internal Med Progress Note ---
Date of Encounter: 07/07/16 Time of Encounter: 12:21 - Assessment and plan (1) Atrial fibrillation with rapid ventricular response Current Visit: Yes Status: Acute Assessment and plan: Rate now controlled. sotalol increased by cardio, tolerated Continue same Continue Coumadin INR therapeutic (2) Diabetes Current Visit: No Status: Chronic Assessment and plan: Appears well controlled at home. Continue sliding scale while admitted. Qualifiers: Diabetes mellitus type: type 2 Diabetes mellitus complication status: with circulatory complication Diabetes mellitus complication detail: with other circulatory complications Diabetes mellitus director long term care insulin use: without director long term care use Qualified Code(s): E11.59 - Type 2 diabetes mellitus with other circulatory complications (3) HTN (hypertension) Current Visit: Yes Status: Chronic Assessment and plan: Controlled. Continue amlodipine 5 mg daily, sotalol 120 mg twice a day, losartan 50 mg daily, furosemide 40 mg daily as needed. Qualifiers: Hypertension type: essential hypertension Qualified Code(s): I10 - Essential (primary) hypertension (4) CHF (congestive heart failure) Current Visit: Yes Status: Chronic Assessment and plan: Euvolemic on examination. Echocardiogram from January 2016 reviewed ejection fraction 60% with indeterminant diastolic function. She is on diuretics at home. Chronic diastolic heart failure without acute exacerbation. Qualifiers: Congestive heart failure type: diastolic Congestive heart failure chronicity: chronic Qualified Code(s): I50.32 - Chronic diastolic (congestive ) heart failure (5) DVT prophylaxis Current Visit: Yes Status: Acute Assessment and plan: INR 2.2 - Subjective Interval history: Seen and evaluated at bedside she is being managed for afib with RVR HR in the low 50s, asymptomatic - Constitutional Vitals: Temp Pulse Resp BP Pulse Ox 97.5 F L 50 20 116/80 94 07/07/16 11:04 07/07/16 11:04 07/07/16 11:04 07/07/16 11:04 07/07/16 11:04 General appearance: Present: A&O X 3, pleasant, no acute distress, answers questions appropriately - Head Head exam: Present: atraumatic, normocephalic - Eye Eye exam: Present: PERRL, conjuntiva pink, sclera anicteric Pupils: Present: PERRL - Neck Neck exam general surgery: Present: supple, trachea midline. Absent: lymphadenopathy - Respiratory Respiratory exam: Present: CTAB. Absent: accessory muscle use, rales, rhonchi, wheezes - Cardiovascular Cardiovascular exam: Present: RRR, +S1, +S2. Absent: diastolic murmur, gallop, rubs, systolic murmur - GI/Abdominal GI/Abdominal exam: Present: normal bowel sounds, soft, no peritoneal signs. Absent: distended, tenderness - Extremities Exam Extremities exam: Present: warm, radial pulses palpable and symetrical. Absent : calf tenderness, cyanotic, pedal edema - Neurological Exam Neurological exam: Present: alert, CN II-XII intact, oriented X3, no focal deficits. Absent: pronater drift, facial droop, speech deficit - Skin Skin exam: Present: dry, intact Internal Medicine: Result - Labs CBC & Chem 7: 07/06/16 04:43 07/06/16 04:43 - ABG Interpretation ABG results: PT/INR, D-dimer PT 23.9 Seconds (9.4-12.1) H 07/07/16 05:35 Consult Discharge Plan - Plan Referrals: Aleksandar Strickland DO [Primary Care Provider] - 07/14/16 12:00 pm
--- NOTE | 2016-07-07 17:42 | Electrocardiograph Report ---
[address] [place], [place] [address] Test Date: 2016-07-06 Pat Name: Erica Merida Department: 113 Room: 3B37 Gender: F Bakery Associate: MARCELO : 1950 Requested By: Kin Ray Order Number: [id number] Reading MD: Jose Armando Ness Measurements Intervals [place] Rate: 56 P: 50 NH: 181 QRS: 31 QRSD: 84 T: 43 QT: 454 QTc: 445 Interpretive Statements SINUS BRADYCARDIA Electronically Signed On 07-07-2016 17:41:11 EDT by Jose Armando Ness
--- NOTE | 2016-07-07 17:45 | Electrocardiograph Report ---
[place] [address] Test Date: 2016-07-06 Pat Name: Erica Merida Department: 113 Room: 3B Gender: F Med Peds: TIM : 1950 Requested By: Jaida Felix Order Number: [id number] Reading MD: Nati Ness Measurements Intervals [place] Rate: 59 P: 71 [place]: 188 QRS: 39 QRSD: 85 T: 48 QT: 478 QTc: 478 Interpretive Statements SINUS BRADYCARDIA PROLONGED QT INTERVAL Electronically Signed On 07-07-2016 17:43:36 EDT by Nati Ness
[2016-07-07] MEDS: *HR* Warfarin 2.5 MG TABLET PO SCH (18:40)
[2016-07-08 06:37] LABS: INR 2.4; Prothrombin Time 26.2 Seconds (9.4-12.1)
[2016-07-08] MEDS: Aspirin 81 MG TAB.CHEW PO SCH (07:54)
[2016-07-08] MEDS: amLODIPine 5 MG TABLET PO SCH (07:54)
[2016-07-08] MEDS: Beclomethasone 80mcg MDI IH SCH (09:09)
--- NOTE | 2016-07-08 09:38 | Event Note ---
Date of Encounter: 07/08/16 Time of Encounter: 09:40 - Cardiology Event Note Selected Entries 07/08/16 06:53 07/08/16 07:57 07/08/16 09:10 Temperature 97.9 F Pulse Rate 56 Respiratory Rate 16 Blood Pressure 128/77 O2 Sat by Pulse Oximetry 97 Oxygen Delivery Method Room Air 24 hour telemetry reviewed with average heart rate 64, sinus rhythm with no significant A. fib noted, currently sinus bradycardia at 56 on telemetry. On sotalol 120 mg by mouth twice a day (has received 4 doses of increased regimen) with current ECG showing: QT/QTC 478/468 ms. On Coumadin. Has f/u scheduled. Cardiology signed off.
[2016-07-08 11:15] VITALS: BP 112/63
--- NOTE | 2016-07-08 11:52 | Discharge Summary ---
Date of Encounter: 07/08/16 Time of Encounter: 11:52 - Discharge Diagnosis (1) Atrial fibrillation with rapid ventricular response Priority: Primary Status: Acute (2) Diabetes Priority: Secondary Status: Chronic Qualifiers: Diabetes mellitus type: type 2 Diabetes mellitus complication status: with circulatory complication Diabetes mellitus complication detail: with other circulatory complications Diabetes mellitus bellhop captain insulin use: without bellhop captain use Qualified Code(s): E11.59 - Type 2 diabetes mellitus with other circulatory complications (3) HTN (hypertension) Priority: Secondary Status: Chronic Qualifiers: Hypertension type: essential hypertension Qualified Code(s): I10 - Essential (primary) hypertension (4) CHF (congestive heart failure) Priority: Secondary Status: Chronic Qualifiers: Congestive heart failure type: diastolic Congestive heart failure chronicity: chronic Qualified Code(s): I50.32 - Chronic diastolic (congestive ) heart failure (5) DVT prophylaxis Priority: Secondary Status: Acute - Discharge Medications Prescriptions: Sotalol [Betapace] 120 mg PO Q12HR #60 tablet Home Medications: Aspirin 81 mg PO DAILY 11/10/14 [History] Cinnamon Bark [Cinnamon] 1,000 mg PO DAILY 10/15/15 [History] Psyllium Husk [Daily Fiber] 2 tab PO DAILY 10/15/15 [History] Warfarin [Coumadin] 2.5 mg PO DAILY 10/15/15 [History] Omeprazole [PriLOSEC] 20 mg PO DAILY 11/29/15 [History] Furosemide [Lasix] 40 mg PO DAILY PRN 01/19/16 [History] Budesonide [Pulmicort Flexhaler 180mcg] 180 mcg IH DAILY 03/03/16 [History] Losartan Potassium [Cozaar] 50 mg PO DAILY #30 tab 03/03/16 [Rx] Amlodipine [Norvasc] 5 mg PO DAILY 07/05/16 [History] Sotalol [Betapace] 120 mg PO Q12HR #60 tablet 07/08/16 [Rx] Allergies/Adverse Reactions: Allergies adhesive tape Allergy (Verified 07/05/16 18:59) Hives Procedures/tests Complete & Pending: Procedures Performed prior 72 hours Category Date Time Status ECG 12 lead ECG [ECG] Routine Y 07/06/16 21:23 Completed EKG [ECG 12 lead ECG] [ECG] Routine Y 07/07/16 05:00 Ordered EKG [ECG 12 lead ECG] [ECG] Stat Y 07/06/16 15:44 Completed Date of admission: 07/06/16 13:56 Primary care physician: Victorino Donovan Discharging clinician: Derian Wheeler Anticipated date of discharge: 07/08/16 - Patient Status Disposition: Home, Self-Care Condition: Fair Functional capacity at discharge: independent ambulation Overall status at discharge: patient is progressing back to baseline - Discharge Instructions Instructions: Sotalol (By mouth), Atrial Fibrillation (DC) Follow Up With: Aleksandar Strickland DO [Primary Care Provider] - 07/14/16 12:00 pm Forms: ED Satisfaction Letter - Diet and Activity Activity: resume usual activities as tolerated Diet: low salt diet Interval History: See below Hospital course: Ms. Merida is a 65 year old female patient with known history of afib on coumadin and history of three prior cardioversions who presented to the ED with complaint of palpitations and shortness of breath and determined to be in afib with rvr, rate 142 on ekg. CXR revealed no acute cardio pulm process. Patient was discontinued on Cardizem due to history of bradycardic episodes and continued on Sotalol at increased dose of 120mg bid. EKG revealed sinus bradycardia, rate 50bpm, prolonged QT interval. Pr int 177ms , QRS 75 ms, QT/QTc 491-466 ms, P-R-T axes 55 38 49. Patient has tolerated increase in sotalol from 80mg q12h to 120mg q12h INR is therapeutic She is stable for discharge home on current medications, to follow up with PCP and Cardiology within a week. She has an appointment for INR check on Tuesday 07/11, advised to keep. - Time Spent with Patient Total time spent providing and/or coordinating discharge services: Less than 30 minutes - Constitutional Vitals: Temp Pulse Resp BP Pulse Ox 99.1 F 58 16 112/63 93 07/08/16 11:11 07/08/16 11:11 07/08/16 11:11 07/08/16 11:11 07/08/16 11:11 General appearance: Present: A&O X 3, pleasant, no acute distress, answers questions appropriately - Head Head exam: Present: atraumatic, normocephalic - Eye Eye exam: Present: PERRL, conjuntiva pink, sclera anicteric Pupils: Present: PERRL - Neck Neck exam general surgery: Present: supple, trachea midline. Absent: lymphadenopathy - Respiratory Respiratory exam: Present: CTAB. Absent: accessory muscle use, rales, rhonchi, wheezes - Cardiovascular Cardiovascular exam: Present: RRR, +S1, +S2. Absent: diastolic murmur, gallop, rubs, systolic murmur - GI/Abdominal GI/Abdominal exam: Present: normal bowel sounds, soft, no peritoneal signs. Absent: distended, tenderness - Extremities Exam Extremities exam: Present: warm, radial pulses palpable and symetrical. Absent : calf tenderness, cyanotic, pedal edema - Neurological Exam Neurological exam: Present: CN II-XII intact, oriented X3, no focal deficits. Absent: pronater drift, facial droop, speech deficit - Skin Skin exam: Present: dry, intact
[2016-07-08] MEDS ORDERED: Aminoglycoside Consult 1 EACH MC ONE (13:59)
--- NOTE | 2016-07-09 17:55 | Electrocardiograph Report ---
[place] [id number] Test Date: 2016-07-08 Pat Name: Erica Merida Department: 113 Room: 3B37 Gender: F Assistant Art Director: SUKHDEV : 1950 Requested By: Kin Ray Order Number: [id number] Reading MD: Lisa Burnett Measurements Intervals [place] Rate: 56 P: 58 ND: 162 QRS: 42 QRSD: 89 T: 51 QT: 478 QTc: 468 Interpretive Statements SINUS BRADYCARDIA Electronically Signed On 07-09-2016 17:54:28 EDT by Lisa Burnett
== END 2016-07-08 14:00 | disposition home or self-care (01) | DRG 309 ==
LOC: ICNU 17:21 → EMEROO 17:21 → SUATTDRO 20:10 → ICNU 20:42 → 3BNU 07-06 04:24
PROVIDERS: ADMIT Internal Medicine; ATTEND Nurse Practitioner Family

== ENCOUNTER 2016-08-25 10:04 | Observation (INO) ==
--- NOTE | 2016-08-25 10:27 | Emergency Department Note ---
Disposition Clinical Impression: History of breast cancer, CHF (congestive heart failure), HTN (hypertension), Chest pain, Headache, Frail elderly, History of CVA (cerebrovascular accident) Disposition: Admitted As Inpatient Referrals: Aleksandar Strickland DO [Primary Care Provider] - Forms: ED Satisfaction Letter General Adult HPI - General Chief complaint: ED Arrhythmia/Palpitations Stated complaint: afib/high bp Source: patient Limitations: no limitations - History of Present Illness HPI Narrative: 65-year-old female reports emergency department complaining of a rapid heart rate into the 150 range this morning. She has known history of atrial fibrillation. She stated that started at 3 AM. She expressed some chest discomfort with this. Patient took her sotalol which seemed to help her. She called her digital product manager office Dr. Ness'austin, they recommended she come to the ED. The patient describes an elevated blood pressure as well. She also has a headache. There is no history of head trauma neck stiffness rash or fever no convulsions or confusion no trouble moving the arms or legs independently. The patient had a remote CVA from which she recovered. The patient states she takes Coumadin at this time. There is no history of gout pain vomiting or diarrhea or bleeding of any sort. The patient has no known history of coronary disease but does have a history of hypertension and hypercholesteremia atrial fibrillation. The patient states she had a stress test remotely. There is no history of leg swelling or pain, the patient does take Lasix on an as-needed basis. There is no history of kendra orthopnea or fever. No complaints of cough runny nose or ear pain sore throat or trauma. The patient is concerned about an elevated heart rate, chest pain, headache, and elevated blood pressure. She has no personal history of PE aneurysm or CAD. Pain Scale: 6 - Related Data Home Medications Medication Instructions Recorded Confirmed Aspirin 81 mg PO DAILY 11/10/14 07/05/16 Cinnamon Bark [Cinnamon] 1,000 mg PO DAILY 10/15/15 07/05/16 Psyllium Husk [Daily Fiber] 2 tab PO DAILY 10/15/15 07/05/16 Warfarin [Coumadin] 2.5 mg PO DAILY 10/15/15 07/05/16 Omeprazole [PriLOSEC] 20 mg PO DAILY 11/29/15 07/05/16 Furosemide [Lasix] 40 mg PO DAILY PRN 01/19/16 07/05/16 Budesonide [Pulmicort Flexhaler 180 mcg IH DAILY 03/03/16 07/05/16 180mcg] amLODIPine [Norvasc] 5 mg PO DAILY 07/05/16 07/05/16 Previous Rx's Medication Instructions Recorded Losartan Potassium [Cozaar] 50 mg PO DAILY #30 tab 03/03/16 Sotalol [Betapace] 120 mg PO Q12HR #60 tablet 07/08/16 Allergies Allergy/AdvReac Type Severity Reaction Status Date / Time adhesive tape Allergy Hives Verified 08/25/16 10:06 All systems ED: reviewed and negative except as stated. Past Medical History - Past Medical History Medical history: Reports: arthritis, asthma, atrial fibrillation, cancer, CHF, hypertension, TIA Surgical history: Reports: breast surgery, cancer surgery, hysterectomy Psychiatric history: Reports: anxiety, depression MANDARIN TEACHER history: Reports: no MANDARIN TEACHER history - Social History Smoking Status: Never smoker Smokeless Tobacco Status: No Alcohol use: Reports: none Drug use: Reports: none Physical Exam - General Limitations: no limitations General appearance: alert, in no apparent distress - Head Head exam: atraumatic, normocephalic, normal inspection - Eye Eye exam: Present: normal appearance, PERRL, EOMI. Absent: scleral icterus, conjunctival injection, miosis, mydriasis, periorbital swelling - ENT ENT exam: normal exam, normal oropharynx, mucous membranes moist, TM's normal bilaterally, normal external ear exam - Neck Neck exam: Present: normal inspection, full ROM, trachea midline. Absent: tenderness - Chest Chest inspection: Present: symmetric chest wall rise. Absent: tenderness - Respiratory Respiratory exam: Present: normal lung sounds bilaterally. Absent: respiratory distress, wheezes, stridor, accessory muscle use, prolonged expiratory phase - Cardiovascular Cardiovascular exam: Present: regular rate - Abdominal Exam Abdominal exam: Present: soft, Non-Tender, normal bowel sounds. Absent: tenderness, distention, guarding, rebound, rigidity, pulsatile mass - Extremities Exam Extremities exam: Present: normal inspection, full ROM. Absent: tenderness, normal capillary refill, pedal edema, joint swelling, calf tenderness - Expanded Lower Extremity Exam Lower leg exam: Absent: Homans' sign Neurovascular/Tendon exam: Present: normal capillary refill. Absent: motor deficit, sensory deficit, tendon deficit, extremity cold to touch, pallor - Back Exam Back exam: Present: normal inspection, full ROM. Absent: tenderness, CVA tenderness (R), CVA tenderness (L), vertebral tenderness - Neurological Exam Neurological exam: Present: alert, oriented X3, CN II-XII intact. Absent: motor sensory deficit - Psychiatric Psychiatric exam: Present: normal affect, normal mood - Skin Skin exam: Present: warm, dry, intact, normal color. Absent: rash, cyanosis, diaphoresis, erythema, pallor, mottled Course Vital Signs Temperature 98.2 F 08/25/16 10:06 Pulse Rate 65 08/25/16 10:06 Respiratory Rate 20 08/25/16 10:06 Blood Pressure 169/85 08/25/16 10:06 O2 Sat by Pulse Oximetry 96 08/25/16 10:06 Temperature 98.2 F 08/25/16 10:06 Pulse Rate 65 08/25/16 10:06 Respiratory Rate 20 08/25/16 10:06 Blood Pressure 169/85 08/25/16 10:06 O2 Sat by Pulse Oximetry 96 08/25/16 10:06 Oxygen Delivery Oxygen Delivery Room Air Medical Decision Making - MDM Narrative Medical decision making narrative: The patient reports he had significant and sustained atrial fibrillation this morning. She also had chest discomfort and has developed a headache. She states she called her digital product manager office who recommended she come to the ED. In the ED she sowed a sinus bradycardia on her EKG. She was monitored and given pain medications. CT scan chest x-ray negative. Laboratory studies show no major abnormality. INR level 3.4. The patient is concerned because she has had A previous stroke secondary to atrial fibrillation. She states she had a recent admission to have a have her medication adjusted regarding her dysrhythmia and she reports a significant recurrence. She also reports she has chest pain associated with this event which is not usual for her. She does not feel comfortable going home. Based on her age, associated vascular comorbidities including hypertension, previous CVA, and known cardiac dysrhythmia, CHF, anticoagulated status, antiarrhythmic therapy, and significant symptomatology, I thought would be appropriate to admit the patient to the hospital. I reviewed the case with the hospitalist on-call who has accepted the patient to her care. The patient was given aspirin and hydrocodone in the ED. Currently stable pending admission. - Lab Data Lab results reviewed: Yes I reviewed the patient's lab results. Result diagrams: 08/25/16 10:18 08/25/16 10:18 Lab Results 08/25/16 08/25/16 08/25/16 Range/Units 10:18 10:18 10:18 WBC 8.4 (4.3-11.1) K/mcL RBC 4.91 (3.82-4.97) M/mcL Hgb 13.7 (11.5-15.4) g/dL Hct 42.9 (35.3-44.9) % MCV 87.4 (83.0-100.0) fL MCH 27.9 L (28.0-33.3) pg MCHC 31.9 (31.6-35.5) g/dL RDW 13.8 (11.5-14.5) % Plt Count 282 (140-400) K/mcL MPV 9.4 (9.4-12.4) fL Immature Gran % 0.4 (0-4) % Seg Neutrophils % 78.5 % Lymphocytes % 13.7 % Monocytes % 5.6 % Eosinophils % 1.4 % Basophils % 0.4 % Neutrophils # 6.6 (1.6-8.9) K/mcL Lymphocytes # 1.2 (0.6-4.6) K/mcL Monocytes # 0.5 (0.0-1.3) K/mcL Eosinophils # 0.1 (0.0-0.6) K/mcL Basophils # 0.0 (0.0-0.2) K/mcL PT 37.9 H (9.4-12.1) Seconds INR 3.4 APTT 52.6 H (26.0-36.0) Seconds Sodium 142 (136-145) mEq/L Potassium 4.0 (3.5-4.5) mEq/L Chloride 106 (98-109) mEq/L Carbon Dioxide 29 (19-29) mEq/L BUN 22 H (7-20) mg/dL Creatinine 0.83 (0.57-1.11) mg/dL Est GFR ( Amer) > 60 (> 60) Est GFR (Non-Af Amer) > 60 (> 60) BUN/Creatinine Ratio 27 H (6-26) Glucose 107 H (70-99) mg/dL Calculated Osmolality 298 (280-300) Calcium 9.0 (8.6-10.8) mg/dL Total Bilirubin 0.4 (0.2-1.2) mg/dL Direct Bilirubin 0.2 (0.0-0.5) mg/dL Indirect Bilirubin 0.2 (0.0-1.2) mg/dL AST 15 (5-34) Units/L ALT 18 (0-55) Units/L Alkaline Phosphatase 114 (38-126) Units/L Troponin I (0-0.03) ng/mL B-Natriuretic Peptide (0-100) pg/mL Serum Total Protein 6.6 (6.0-8.3) g/dL Albumin 3.3 L (3.5-5.0) g/dL Globulin 3.3 (2.4-3.5) g/dL Albumin/Globulin Ratio 1.0 L (1.1-2.2) 08/25/16 08/25/16 Range/Units 10:18 10:18 WBC (4.3-11.1) K/mcL RBC (3.82-4.97) M/mcL Hgb (11.5-15.4) g/dL Hct (35.3-44.9) % MCV (83.0-100.0) fL MCH (28.0-33.3) pg MCHC (31.6-35.5) g/dL RDW (11.5-14.5) % Plt Count (140-400) K/mcL MPV (9.4-12.4) fL Immature Gran % (0-4) % Seg Neutrophils % % Lymphocytes % % Monocytes % % Eosinophils % % Basophils % % Neutrophils # (1.6-8.9) K/mcL Lymphocytes # (0.6-4.6) K/mcL Monocytes # (0.0-1.3) K/mcL Eosinophils # (0.0-0.6) K/mcL Basophils # (0.0-0.2) K/mcL PT (9.4-12.1) Seconds INR APTT (26.0-36.0) Seconds Sodium (136-145) mEq/L Potassium (3.5-4.5) mEq/L Chloride (98-109) mEq/L Carbon Dioxide (19-29) mEq/L BUN (7-20) mg/dL Creatinine (0.57-1.11) mg/dL Est GFR ( Amer) (> 60) Est GFR (Non-Af Amer) (> 60) BUN/Creatinine Ratio (6-26) Glucose (70-99) mg/dL Calculated Osmolality (280-300) Calcium (8.6-10.8) mg/dL Total Bilirubin (0.2-1.2) mg/dL Direct Bilirubin (0.0-0.5) mg/dL Indirect Bilirubin (0.0-1.2) mg/dL AST (5-34) Units/L ALT (0-55) Units/L Alkaline Phosphatase (38-126) Units/L Troponin I 0.00 (0-0.03) ng/mL B-Natriuretic Peptide 127 H (0-100) pg/mL Serum Total Protein (6.0-8.3) g/dL Albumin (3.5-5.0) g/dL Globulin (2.4-3.5) g/dL Albumin/Globulin Ratio (1.1-2.2) - Radiology Data Radiology results reviewed: Yes I reviewed the patient's radiology results.
[2016-08-25 10:31] LABS: Basophils % 0.4 %; Eosinophils # 0.1 K/mcL (0.0-0.6); Eosinophils % 1.4 %; Hematocrit 42.9 % (35.3-44.9); Hemoglobin 13.7 g/dL (11.5-15.4); Immature Granulocytes % 0.4 % (0-4); Lymphocytes # 1.2 K/mcL (0.6-4.6); Lymphocytes % 13.7 %; Mean Corpuscular HGB Conc 31.9 g/dL (31.6-35.5); Mean Corpuscular Hemoglobin 27.9 pg (28.0-33.3); Mean Corpuscular Volume 87.4 fL (83.0-100.0); Mean Platelet Volume 9.4 fL (9.4-12.4); Monocytes # 0.5 K/mcL (0.0-1.3); Monocytes % 5.6 %; Neutrophils # 6.6 K/mcL (1.6-8.9); Platelet Count 282 K/mcL (140-400); Red Blood Count 4.91 M/mcL (3.82-4.97); Red Cell Distribution Width 13.8 % (11.5-14.5); Segmented Neutrophils % 78.5 %
[2016-08-25] MEDS ORDERED: *HR* HYDROcodone/Acet 5/325 mg TABLET PO ONE (10:35)
[2016-08-25 10:40] LABS: INR 3.4; Prothrombin Time 37.9 Seconds (9.4-12.1)
[2016-08-25 10:41] LABS: Alanine Aminotransferase 18 Units/L (0-55); Albumin 3.3 g/dL (3.5-5.0); Alkaline Phosphatase 114 Units/L (38-126); Aspartate Amino Transferase 15 Units/L (5-34); BUN/Creatinine Ratio 27 (6-26); Bilirubin,Direct 0.2 mg/dL (0.0-0.5); Bilirubin,Indirect 0.2 mg/dL (0.0-1.2); Bilirubin,Total 0.4 mg/dL (0.2-1.2); Blood Urea Nitrogen 22 mg/dL (7-20); Carbon Dioxide 29 mEq/L (19-29); Chloride 106 mEq/L (98-109); Globulin 3.3 g/dL (2.4-3.5); Glucose 107 mg/dL (70-99); Osmolality,Calculated 298 (280-300); Sodium 142 mEq/L (136-145); Total Protein 6.6 g/dL (6.0-8.3); eGFR For African Americans > 60 (> 60); eGFR For Non-African Americans > 60 (> 60)
[2016-08-25 10:42] LABS: Activated Partial Thrombo Time 52.6 Seconds (26.0-36.0)
[2016-08-25] MEDS ORDERED: Aspirin 325 MG TABLET PO ONE (13:31)
[2016-08-25] MEDS ORDERED: Naloxone 0.4 MG/ML INJ IVP PRN (14:30)
--- NOTE | 2016-08-25 14:39 | Internal Med History&Physical ---
<Chasity Lawson M - Last Filed: 08/25/16 17:01> Date of Encounter: 08/25/16 Time of Encounter: 14:34 Assessment and Plan (1) Chest pain Current visit: Yes Status: Acute Patient reports sharp chest pain this morning accompanied by shortness of breath , palpitations and increased heart rated. She reports her Heart rate was 150 at home, resolved by the time she got to ED. EKG showed sinus rhythm without ST elevations or depressions. Troponin negative at 0.00. Chest pain likely secondary to episode of afib with RVR. Patient had cardiac cath 10/18/15 which showed minimal atherosclerotic disease. Continuous lunchroom monitor serial troponins. echocardiogram in the morning. Qualifiers: Chest pain type: precordial pain Qualified Code(s): R07.2 - Precordial pain (2) Atrial fibrillation Current visit: No Status: Chronic Patient with Afib s/p 3 cardioversions. She takes Sotalol 120mg BID for rate and rhythm control and coumadin for anticoagulation. Patient reports episode of palpitations, increased heart rate, chest pain, shortness of breath this morning. EKG in the ED showed Sinus rhythm with HR of 64. Continue home dose of sotalol. PHarmacy to dose coumadin. Continuous lunchroom monitor. Qualifiers: Atrial fibrillation type: paroxysmal Qualified Code(s): I48.0 - Paroxysmal atrial fibrillation (3) HTN (hypertension) Current visit: Yes Status: Chronic Continue home doses of Norvasc and losartan. Qualifiers: Hypertension type: essential hypertension Qualified Code(s): I10 - Essential (primary) hypertension (4) Headache Current visit: Yes Status: Acute Patient reported headache this morning accompanying her chest pain, shortness of breath and palpitations. Likely due to increased blood pressure and afib with RVR at home. Now resolved. Tyelonol PRN. Qualifiers: Headache type: tension-type Headache chronicity pattern: acute headache Intractability: not intractable Qualified Code(s): G44.209 - Tension-type headache, unspecified, not intractable (5) DVT prophylaxis Current visit: No Status: Acute anti-embolic stockings. Patient on coumadin for afib, additional pharmacologic prophylaxis is not warranted. Internal Medicine - H&P: HPI Chief complaint: chest pain, palpitations Admitted From: Emergency Dept Plans for Post Hospital Care: Home History of present illness: Ms. Merida is a 65 year old female with hypertension, hyperlipidemia, history of TIA, asthma, CHF, atrial fibrillation on Coumadin presents to the emergency department today with complaints of chest pain and palpitations. Patient reports that she awoke at 3 AM with chest pain and palpitations checked her pulse and it was 150. She took her sotalol early, waited a few hours and then took the rest of her morning medications. She called her tax manager cpa's office to instructed her to come to the ED. Patient reports the chest pain was sharp and constant while her heart is racing. Patient reports that this time her chest pain is resolved. She also reports associated lightheadedness, headache and shortness of breath during the episode. She denies any numbness or tingling. She denies any fever, chills or sweats. Evaluation in the emergency department included an EKG which showed normal sinus rhythm with heart rate of 54. Troponin was negative at 0.00. INR was mildly supratherapeutic at 3.4. BNP was mildly elevated at 127. Chest x-ray showed no acute cardiopulmonary disease. CT of the head showed no acute intracranial abnormality. On exam, patient alert and oriented, in no acute distress. Heart had regular rate and rhythm, lungs are clear bilaterally to auscultation, no peripheral edema. Past Med Surg Social Fam HX - Past Medical History Medical history: arthritis, asthma, atrial fibrillation, cancer, CHF, hypertension, TIA Psychiatric history: anxiety, depression - Past Surgical History Surgical History: breast surgery, cancer surgery, hysterectomy - Social History Smoking Status: Never smoker Smokeless Tobacco Status: No Alcohol use: none Drug use: none - Family History Father Family Member Ethnicity: Non- Living Status: Hx Family Cardiac Disorders: Yes (hypertension) Hx Family Respiratory Disorders: No Hx Family Cancer: No Hx Family GI Disorders: No Hx Family Endocrine Disorder: Yes (diabetes) Hx Family Neuromuscular Disorders: No Hx Family Neurologic Disorders: No Hx Family HEENT Disorders: No Hx Family Autoimmune Disorders: No Mother Adopted: No Family Member Ethnicity: Non- Living Status: Still Living Hx Family Cardiac Disorders: Yes (Afib) Hx Family Respiratory Disorders: No Hx Family Cancer: Yes (Colon) Hx Family GI Disorders: Yes (Cancer) Hx Family Endocrine Disorder: Yes Hx Family Neuromuscular Disorders: Yes (Stroke 2016) Hx Family Neurologic Disorders: No Hx Family HEENT Disorders: No Hx Family Autoimmune Disorders: No Internal Medicine - H&P: Meds Aspirin 81 mg PO DAILY 11/10/14 [History] Cinnamon Bark [Cinnamon] 1,000 mg PO DAILY 10/15/15 [History] Psyllium Husk [Daily Fiber] 2 tab PO DAILY 10/15/15 [History] Omeprazole [PriLOSEC] 20 mg PO DAILY 11/29/15 [History] Furosemide [Lasix] 40 mg PO DAILY PRN 01/19/16 [History] Budesonide [Pulmicort Flexhaler 180mcg] 180 mcg IH DAILY 03/03/16 [History] Losartan Potassium [Cozaar] 50 mg PO DAILY #30 tab 03/03/16 [Rx] amLODIPine [Norvasc] 5 mg PO DAILY 07/05/16 [History] Sotalol [Betapace] 120 mg PO Q12HR #60 tablet 07/08/16 [Rx] Acetaminophen [Tylenol] 500 mg PO Q6HR PRN 08/25/16 [History] Simvastatin [Zocor] 20 mg PO DAILY 08/25/16 [History] Warfarin [Coumadin] 2.5 mg PO SUMOTUWEFRSA 08/25/16 [History] Warfarin [Coumadin] 5 mg PO TH 08/25/16 [History] Allergies adhesive tape Allergy (Verified 08/25/16 10:06) Hives All Systems PM: A 10-system review of systems was performed and is negative for pertinent findings except as documented above in the HPI. - Constitutional Constitutional: no chills, no fever(s), no night sweats - EENT Eyes: no change in vision, no discharge, no pain, no photophobia Ears: no ear discharge, no ear pain, no tinnitus Nose, mouth and throat: no dysphagia, no nasal discharge, no neck pain, no sore throat - Cardiovascular Cardiovascular ROS IM: chest pain, dyspnea, lightheadedness, palpitations, no diaphoresis, no syncope - Respiratory Respiratory: dyspnea, no cough, no wheezing, no excessive phlegm production - Gastrointestinal Gastrointestinal: no abdominal pain, no diarrhea, no hematemesis, no hematochezia, no melena, no nausea, no vomiting - Genitourinary Genitourinary: no change in urinary stream, no dysuria, no flank pain, no hematuria - Musculoskeletal Musculoskeletal ROS IM: no numbness, no tingling - Integumentary Integumentary IM: no rash, no unusual bruising - Neurological Neurological ROS: no confusion, no convulsions, no focal weakness, no numbness, no tingling, no tremor(s) - Hematologic/Lymphatic Hematologic/Lymphatic: no easy bruising - Constitutional Vitals: Temp Pulse Resp BP Pulse Ox 98.2 F 65 18 141/77 96 08/25/16 10:06 08/25/16 10:06 08/25/16 14:28 08/25/16 14:28 08/25/16 10:06 General appearance: Present: A&O X 3, pleasant, no acute distress - Head Head exam: Present: atraumatic, normocephalic - Eye Eye exam: Present: PERRL, conjuntiva pink, sclera anicteric Pupils: Present: PERRL - Neck Neck exam general surgery: Present: supple, trachea midline. Absent: lymphadenopathy - Respiratory Respiratory exam: Present: CTAB. Absent: accessory muscle use, rales, rhonchi, wheezes - Cardiovascular Cardiovascular exam: Present: RRR, +S1, +S2. Absent: diastolic murmur, gallop, rubs, systolic murmur - GI/Abdominal GI/Abdominal exam: Present: normal bowel sounds, soft, no peritoneal signs. Absent: distended, tenderness - Extremities Exam Extremities exam: Present: warm, radial pulses palpable and symetrical. Absent : calf tenderness, cyanotic, pedal edema - Neurological Exam Neurological exam: Present: CN II-XII intact, oriented X3, no focal deficits. Absent: facial droop, speech deficit - Skin Skin exam: Present: dry, intact Internal Med - H&P Results - Labs CBC & Chem 7: 08/25/16 10:18 08/25/16 10:18 Labs: All Lab Results (24 Hours) 08/25/16 08/25/16 08/25/16 Range/Units 10:18 10:18 10:18 WBC 8.4 (4.3-11.1) K/mcL RBC 4.91 (3.82-4.97) M/mcL Hgb 13.7 (11.5-15.4) g/dL Hct 42.9 (35.3-44.9) % MCV 87.4 (83.0-100.0) fL MCH 27.9 L (28.0-33.3) pg MCHC 31.9 (31.6-35.5) g/dL RDW 13.8 (11.5-14.5) % Plt Count 282 (140-400) K/mcL MPV 9.4 (9.4-12.4) fL Immature Gran % 0.4 (0-4) % Seg Neutrophils % 78.5 % Lymphocytes % 13.7 % Monocytes % 5.6 % Eosinophils % 1.4 % Basophils % 0.4 % Neutrophils # 6.6 (1.6-8.9) K/mcL Lymphocytes # 1.2 (0.6-4.6) K/mcL Monocytes # 0.5 (0.0-1.3) K/mcL Eosinophils # 0.1 (0.0-0.6) K/mcL Basophils # 0.0 (0.0-0.2) K/mcL PT 37.9 H (9.4-12.1) Seconds INR 3.4 APTT 52.6 H (26.0-36.0) Seconds Sodium 142 (136-145) mEq/L Potassium 4.0 (3.5-4.5) mEq/L Chloride 106 (98-109) mEq/L Carbon Dioxide 29 (19-29) mEq/L BUN 22 H (7-20) mg/dL Creatinine 0.83 (0.57-1.11) mg/dL Est GFR ( Amer) > 60 (> 60) Est GFR (Non-Af Amer) > 60 (> 60) BUN/Creatinine Ratio 27 H (6-26) Glucose 107 H (70-99) mg/dL Calculated Osmolality 298 (280-300) Calcium 9.0 (8.6-10.8) mg/dL Total Bilirubin 0.4 (0.2-1.2) mg/dL Direct Bilirubin 0.2 (0.0-0.5) mg/dL Indirect Bilirubin 0.2 (0.0-1.2) mg/dL AST 15 (5-34) Units/L ALT 18 (0-55) Units/L Alkaline Phosphatase 114 (38-126) Units/L Troponin I (0-0.03) ng/mL B-Natriuretic Peptide (0-100) pg/mL Serum Total Protein 6.6 (6.0-8.3) g/dL Albumin 3.3 L (3.5-5.0) g/dL Globulin 3.3 (2.4-3.5) g/dL Albumin/Globulin Ratio 1.0 L (1.1-2.2) 08/25/16 08/25/16 Range/Units 10:18 10:18 WBC (4.3-11.1) K/mcL RBC (3.82-4.97) M/mcL Hgb (11.5-15.4) g/dL Hct (35.3-44.9) % MCV (83.0-100.0) fL MCH (28.0-33.3) pg MCHC (31.6-35.5) g/dL RDW (11.5-14.5) % Plt Count (140-400) K/mcL MPV (9.4-12.4) fL Immature Gran % (0-4) % Seg Neutrophils % % Lymphocytes % % Monocytes % % Eosinophils % % Basophils % % Neutrophils # (1.6-8.9) K/mcL Lymphocytes # (0.6-4.6) K/mcL Monocytes # (0.0-1.3) K/mcL Eosinophils # (0.0-0.6) K/mcL Basophils # (0.0-0.2) K/mcL PT (9.4-12.1) Seconds INR APTT (26.0-36.0) Seconds Sodium (136-145) mEq/L Potassium (3.5-4.5) mEq/L Chloride (98-109) mEq/L Carbon Dioxide (19-29) mEq/L BUN (7-20) mg/dL Creatinine (0.57-1.11) mg/dL Est GFR ( Amer) (> 60) Est GFR (Non-Af Amer) (> 60) BUN/Creatinine Ratio (6-26) Glucose (70-99) mg/dL Calculated Osmolality (280-300) Calcium (8.6-10.8) mg/dL Total Bilirubin (0.2-1.2) mg/dL Direct Bilirubin (0.0-0.5) mg/dL Indirect Bilirubin (0.0-1.2) mg/dL AST (5-34) Units/L ALT (0-55) Units/L Alkaline Phosphatase (38-126) Units/L Troponin I 0.00 (0-0.03) ng/mL B-Natriuretic Peptide 127 H (0-100) pg/mL Serum Total Protein (6.0-8.3) g/dL Albumin (3.5-5.0) g/dL Globulin (2.4-3.5) g/dL Albumin/Globulin Ratio (1.1-2.2) - Diagnostic Studies Chest x-ray Additional comments: Chest X-Ray 08/25/16 10:27 IMPRESSION: 1. No acute cardiopulmonary disease. 2. Stable chronic nonspecific elevation of the right hemidiaphragm. D/ / 08/25/2016 11:19:26 Sylvester Neves MD / laney Interpreting Provider: Sylvester Neves MD CT scan - head Additional comments: Head CT 08/25/16 10:34 IMPRESSION: No acute intracranial abnormality. D/ / 08/25/2016 11:24:35 Heather Freeman MD / laney Interpreting Provider: Heather Freeman MD <Karly Vega - Last Filed: 08/25/16 18:41> Date of Encounter: 08/25/16 Time of Encounter: 15:45 Internal Medicine - H&P: HPI History of present illness: Ms. Merida is a 65 year old female All Systems PM: A 10-system review of systems was performed and is negative for pertinent findings except as documented above in the HPI. - Constitutional Vitals: Temp Pulse Resp BP Pulse Ox 98 F 48 18 138/74 95 08/25/16 17:53 08/25/16 17:53 08/25/16 17:53 08/25/16 17:53 08/25/16 17:53 Internal Med - H&P Results - Labs CBC & Chem 7: 08/25/16 10:18 08/25/16 10:18 Labs: Cardiac Enzymes 08/25/16 Range/Units 16:05 Troponin I 0.00 (0-0.03) ng/mL - Attending Attestation I examined this patient and my medical decision-making was reviewed with the nurse practitioner. I agree with the documented history of present illness, review of systems, past medical, surgical social and family histories and examination findings, disposition and treatment plan as described above except to any changes set forth below. 65-year-old female patient with a history of atrial fibrillation on sotalol presented with palpitations and chest pain. She describes her heart rate being in the 150s earlier this morning. On presentation to the ER, her heart rate has already improved. She did have some persistent chest pain was radiating up to her jaw but that has also now subsided. On examination, patient has regular heart rate with normal S1 and S2. Respiratory examination shows normal breath sounds. No pedal edema. Chest pain: Could be related to A. fib. We will trend troponins. Get 2-D echocardiogram. If that is abnormal consider stress test. Paroxysmal A. fib: Episode of rapid ventricular response prior to arrival. Improved after patient to sotalol this morning. Continue sotalol. Monitor with telemetry. If patient has episodes of rapid ventricular response, consider increasing dosage of sotalol. Sinusitis: Patient complaining of sinus headache and sinus pressure. Will treat with Flonase and Tylenol with the patient is at home. Essential hypertension: Elevated blood pressure. Resume home medications and monitor blood pressure. We will adjust antihypertensive regimen accordingly.
--- NOTE | 2016-08-25 15:33 | Electrocardiograph Report ---
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
--- NOTE | 2016-08-25 16:10 | Event Note ---
Date of Encounter: 08/25/16 Time of Encounter: 15:45 I examined this patient and my medical decision-making was reviewed with the nurse practitioner. I agree with the documented history of present illness, review of systems, past medical, surgical social and family histories and examination findings, disposition and treatment plan as described above except to any changes set forth below. 65-year-old female patient with a history of atrial fibrillation on sotalol presented with palpitations and chest pain. She describes her heart rate being in the 150s earlier this morning. On presentation to the ER, her heart rate has already improved. She did have some persistent chest pain was radiating up to her jaw but that has also now subsided. On examination, patient has regular heart rate with normal S1 and S2. Respiratory examination shows normal breath sounds. No pedal edema. Chest pain: Could be related to A. fib. We will trend troponins. Get 2-D echocardiogram. If that is abnormal consider stress test. Paroxysmal A. fib: Episode of rapid ventricular response prior to arrival. Improved after patient to sotalol this morning. Continue sotalol. Monitor with telemetry. If patient has episodes of rapid ventricular response, consider increasing dosage of sotalol. Sinusitis: Patient complaining of sinus headache and sinus pressure. Will treat with Flonase and Tylenol with the patient is at home. Essential hypertension: Elevated blood pressure. Resume home medications and monitor blood pressure. We will adjust antihypertensive regimen accordingly.
[2016-08-25] MEDS: Fluticasone Propionate Nasal 50 MCG/SPRAY BOTTLE NS SCH (17:30)
[2016-08-25] MEDS ORDERED: Warfarin perPT PO PRN (18:00)
[2016-08-25] MEDS: Budesonide/Formoterol 80/4.5 MDI IH SCH (19:51)
[2016-08-26 04:00] LABS: Basophils % 0.5 %; Eosinophils # 0.1 K/mcL (0.0-0.6); Hematocrit 37.7 % (35.3-44.9); Immature Granulocytes % 0.3 % (0-4); Lymphocytes # 1.6 K/mcL (0.6-4.6); Lymphocytes % 23.8 %; Mean Corpuscular HGB Conc 31.8 g/dL (31.6-35.5); Mean Corpuscular Hemoglobin 27.8 pg (28.0-33.3); Mean Corpuscular Volume 87.5 fL (83.0-100.0); Mean Platelet Volume 9.7 fL (9.4-12.4); Monocytes # 0.5 K/mcL (0.0-1.3); Monocytes % 7.8 %; Neutrophils # 4.3 K/mcL (1.6-8.9); Platelet Count 237 K/mcL (140-400); Red Blood Count 4.31 M/mcL (3.82-4.97); Red Cell Distribution Width 13.7 % (11.5-14.5); Segmented Neutrophils % 65.6 %
[2016-08-26 04:07] LABS: INR 3.9
[2016-08-26 04:09] LABS: BUN/Creatinine Ratio 34 (6-26); Blood Urea Nitrogen 26 mg/dL (7-20); Calcium 8.5 mg/dL (8.6-10.8); Carbon Dioxide 27 mEq/L (19-29); Chloride 107 mEq/L (98-109); Glucose 101 mg/dL (70-99); Magnesium 1.9 mg/dL (1.6-2.6); Osmolality,Calculated 297 (280-300); Potassium 3.8 mEq/L (3.5-4.5); Sodium 141 mEq/L (136-145); eGFR For African Americans > 60 (> 60); eGFR For Non-African Americans > 60 (> 60)
[2016-08-26 04:10] LABS: Activated Partial Thrombo Time 52.5 Seconds (26.0-36.0)
[2016-08-26] MEDS: Acetaminophen 325 MG TABLET PO PRN ×2 (05:14→12:33)
[2016-08-26] MEDS: Budesonide/Formoterol 80/4.5 MDI IH SCH (07:48)
[2016-08-26] MEDS: Fluticasone Propionate Nasal 50 MCG/SPRAY BOTTLE NS SCH (08:59)
[2016-08-26] MEDS ORDERED: Aspirin 81 MG TAB.CHEW PO SCH (09:00)
[2016-08-26] MEDS ORDERED: amLODIPine 5 MG TABLET PO SCH (09:00)
[2016-08-26 09:12] VITALS: BP 116/55
[2016-08-26] MEDS ORDERED: cephALEXin 500 MG CAPSULE PO SCH (13:00)
--- NOTE | 2016-08-26 13:02 | Discharge Summary ---
Date of Encounter: 08/26/16 Time of Encounter: 13:00 - Discharge Diagnosis (1) Atrial fibrillation with rapid ventricular response Priority: Primary Status: Acute Comments: likely exacerbated by acute viral infection/ sinusits viral vs bacterial (2) Diabetes Priority: Secondary Status: Chronic Qualifiers: Diabetes mellitus type: type 2 Diabetes mellitus complication status: with circulatory complication Diabetes mellitus complication detail: with other circulatory complications Diabetes mellitus penitentiary insulin use: without long goods drier use Qualified Code(s): E11.59 - Type 2 diabetes mellitus with other circulatory complications (3) HTN (hypertension) Priority: Secondary Status: Chronic Qualifiers: Hypertension type: essential hypertension Qualified Code(s): I10 - Essential (primary) hypertension (4) HLD (hyperlipidemia) Priority: Secondary Status: Chronic Qualifiers: Hyperlipidemia type: unspecified Qualified Code(s): E78.5 - Hyperlipidemia , unspecified (5) Supratherapeutic INR Priority: Secondary Status: Acute Comments: hold coumadin for 2 days then resume 2.5 mg daily - Discharge Medications Prescriptions: cephALEXin [Keflex] 500 mg PO BID #14 capsule Home Medications: Aspirin 81 mg PO DAILY 11/10/14 [History] Cinnamon Bark [Cinnamon] 1,000 mg PO DAILY 10/15/15 [History] Psyllium Husk [Daily Fiber] 2 tab PO DAILY 10/15/15 [History] Omeprazole [PriLOSEC] 20 mg PO DAILY 11/29/15 [History] Furosemide [Lasix] 40 mg PO DAILY PRN 01/19/16 [History] Budesonide [Pulmicort Flexhaler 180mcg] 180 mcg IH DAILY 03/03/16 [History] Losartan Potassium [Cozaar] 50 mg PO DAILY #30 tab 03/03/16 [Rx] amLODIPine [Norvasc] 5 mg PO DAILY 07/05/16 [History] Sotalol [Betapace] 120 mg PO Q12HR #60 tablet 07/08/16 [Rx] Acetaminophen [Tylenol] 500 mg PO Q6HR PRN 08/25/16 [History] Simvastatin [Zocor] 20 mg PO DAILY 08/25/16 [History] Warfarin [Coumadin] 2.5 mg PO DAILY #0 08/26/16 [Rx] cephALEXin [Keflex] 500 mg PO BID #14 capsule 06/24/17 [Rx] Allergies/Adverse Reactions: Allergies adhesive tape Allergy (Verified 08/25/16 10:06) Hives Procedures/tests Complete & Pending: Procedures Performed prior 72 hours Category Date Time Status EV echocardiogram Routine Y 08/25/16 15:07 Completed Date of admission: 08/25/16 13:58 Primary care physician: Victorino Donovan - Patient Status Disposition: Home, Self-Care Condition: Good Overall status at discharge: patient is back to baseline - Discharge Instructions Follow Up With: Aleksandar Strickland DO [Primary Care Provider] - Additional Instructions: Follow-up with primary care physician within the next 7 days. Follow-up with assembling inspector within the next 2 weeks. Hold Coumadin for 2 days and follow-up with Coumadin clinic. Start Keflex and completed 7 days. - Diet and Activity Activity: increase activity as tolerated Diet: low fat, low cholesterol Hospital course: Ms. Merida is a 65 year old female with past medical history of hypertension, hyperlipidemia, history of TIA, asthma, diastolic CHF, atrial fibrillation on Coumadin presents to the emergency department with complaints of chest pain and palpitations. Patient reported that she awoke at 3 AM with chest pain and palpitations checked her pulse and it was 150. She took her sotalol early, waited a few hours and then took the rest of her morning medications. She called her assembling inspector's office to instructed her to come to the ED. Patient reported chest pain that was sharp and constant while her heart is racing. Her chest pain resolved. Evaluation in the emergency department included an EKG which showed normal sinus rhythm with heart rate of 54. Troponin was negative at 0.00. INR was mildly supratherapeutic at 3.4 (now 3.9) BNP was mildly elevated at 127. Chest x-ray showed no acute cardiopulmonary disease. CT of the head showed no acute intracranial abnormality. On exam, patient alert and oriented, in no acute distress. Heart had regular rate and rhythm, lungs are clear bilaterally to auscultation, no peripheral edema. Echocardiogram showed an infection fraction of 60% moderate left diastolic dysfunction. The moment her heart rate is controlled with sotalol, the option to stay another day and monitor her was given the patient prefers to be discharged. The patient says she has been having sinusitis which is recurrent for the past few days, she will be discharged on Keflex to control her sinusitis. - Time Spent with Patient Total time spent providing and/or coordinating discharge services: Greater than 30 minutes (40 min) - Constitutional Vitals: Temp Pulse Resp BP Pulse Ox 97.7 F 51 18 116/55 95 08/26/16 09:03 08/26/16 09:03 08/26/16 09:03 08/26/16 09:03 08/26/16 09:03 General appearance: Present: A&O X 3, pleasant, no acute distress - Head Head exam: Present: atraumatic, normocephalic - Eye Eye exam: Present: PERRL, conjuntiva pink, sclera anicteric Pupils: Present: PERRL - Neck Neck exam general surgery: Present: supple, trachea midline. Absent: lymphadenopathy - Respiratory Respiratory exam: Present: CTAB. Absent: accessory muscle use, rales, rhonchi, wheezes - Cardiovascular Cardiovascular exam: Present: RRR, +S1, +S2. Absent: diastolic murmur, gallop, rubs, systolic murmur - GI/Abdominal GI/Abdominal exam: Present: normal bowel sounds, soft, no peritoneal signs. Absent: distended, tenderness - Extremities Exam Extremities exam: Present: warm, radial pulses palpable and symetrical. Absent : calf tenderness, cyanotic, pedal edema - Neurological Exam Neurological exam: Present: CN II-XII intact, oriented X3, no focal deficits. Absent: pronater drift, facial droop, speech deficit - Skin Skin exam: Present: dry, intact
== END 2016-08-26 13:30 | disposition home or self-care (01) ==
LOC: EMEROO 10:04 → 2ANU 10:04
PROVIDERS: ADMIT Internal Medicine; ATTEND Internal Medicine

== ENCOUNTER 2017-04-13 12:28 | Inpatient (IN) ==
--- NOTE | 2017-04-13 12:53 | Emergency Department Note ---
Disposition Clinical Impression: Atrial fibrillation with rapid ventricular response Disposition: Admitted As Inpatient Condition: Good Arrhythmia/Palpitations HPI - General Chief Complaint: ED Arrhythmia/Palpitations Stated Complaint: a-fib Time Seen by Provider: 04/13/17 12:34 Source: patient Mode of arrival: private vehicle Limitations: no limitations Nursing Notes Reviewed: Yes Vital Signs Reviewed: Yes - History of Present Illness HPI Narrative: 66-year-old female history of atrial fibrillation currently on amiodarone and anticoagulated on Coumadin who presents to the ER due to palpitations. Patient reports that she was just discharged from the hospital. She states yesterday evening she felt herself go back into A. fib. States her heart rate has not been less than 100 since yesterday evening. She has had intermittent chest pain as well as shortness of breath and lightheadedness. She reports a prior history of paroxysmal atrial fibrillation. States until recently her A. fib is well controlled. No other complaints. Pt Subjective Complaint: rapid heart beat Onset (ago): day(s) Duration: constant Severity: moderate Context: occurred during rest Arrhythmia History: atrial fibrillation Associated symptoms: Reports: chest pain, shortness of breath, cough Treatments prior to arrival: amiodarone - Related Data Home Medications Medication Instructions Recorded Confirmed Aspirin 81 mg PO DAILY 11/10/14 04/13/17 Cinnamon Bark [Cinnamon] 1,000 mg PO DAILY 10/15/15 04/13/17 Psyllium Husk [Daily Fiber] 2 tab PO DAILY 10/15/15 04/13/17 Omeprazole [PriLOSEC] 20 mg PO DAILY 11/29/15 04/13/17 amLODIPine [Norvasc] 5 mg PO DAILY 07/05/16 04/13/17 Acetaminophen [Tylenol] 500 mg PO Q6HR PRN 08/25/16 04/13/17 Simvastatin [Zocor] 20 mg PO DAILY 08/25/16 04/13/17 Previous Rx's Medication Instructions Recorded Warfarin [Coumadin] 2.5 mg PO DAILY #0 08/26/16 Amiodarone [Cordarone] 400 mg PO BID #60 tablet 04/11/17 Diltiazem CD (24hr) [Cardizem CD] 180 mg PO DAILY #30 cap.er.24h 04/11/17 Allergies Allergy/AdvReac Type Severity Reaction Status Date / Time adhesive tape Allergy Hives Verified 08/25/16 10:06 All systems ED: reviewed and negative except as stated. Constitutional: Denies: fever Cardiovascular: Reports: palpitations. Denies: chest pain Respiratory: Reports: cough, dyspnea Gastrointestinal: Denies: abdominal pain, nausea, vomiting Past Medical History - Past Medical History Attestation: Yes The following information was validated with the patient. Source: patient Medical history: Reports: arthritis, asthma, atrial fibrillation, cancer, CHF, hypertension, TIA Surgical history: Reports: breast surgery, cancer surgery, hysterectomy Psychiatric history: Reports: anxiety, depression GUIDANCE ADVISER history: Reports: no GUIDANCE ADVISER history - Social History Smoking Status: Never smoker Smokeless Tobacco Status: No Alcohol use: Reports: none Drug use: Reports: none Physical Exam - General Limitations: no limitations General appearance: alert, in no apparent distress - Head Head exam: atraumatic, normocephalic - Eye Eye exam: Present: normal appearance - ENT ENT exam: normal exam - Neck Neck exam: Present: normal inspection - Chest Chest inspection: Present: normal inspection, symmetric chest wall rise - Respiratory Respiratory exam: Present: normal lung sounds bilaterally - Cardiovascular Cardiovascular exam: Present: tachycardia, irregular rhythm, normal heart sounds - Abdominal Exam Abdominal exam: Present: soft, Non-Tender. Absent: tenderness - Extremities Exam Extremities exam: Present: normal inspection, full ROM - Expanded Upper Extremity Exam Shoulder exam: Present: normal inspection, full ROM Arm exam: Present: normal inspection, full ROM Elbow exam: Present: normal inspection, full ROM Forearm/Wrist exam: Present: normal inspection, full ROM Hand exam: Present: normal inspection, full ROM - Expanded Lower Extremity Exam Hip/Pelvis exam: Present: normal inspection, full ROM Upper leg exam: Present: normal inspection, full ROM Knee exam: Present: normal inspection, full ROM Lower leg exam: Present: normal inspection, full ROM Ankle exam: Present: normal inspection, full ROM Foot/toe exam: Present: normal inspection, full ROM - Skin Skin exam: Present: warm, dry Course Course Narrative: Patient seen and examined. Vital signs reviewed. We will get an EKG, chest x- ray as well as labs including troponin, electrolytes. Patient's heart rate is fluctuating around 100 to 1:30 here. We will load her with Cardizem and started drip. She requests to be placed onto [facility] from her prior bad experience. I discussed I am not sure where she would be placed. - Reevaluation(s) Reevaluation #1: Discussed results of imaging and labs with the patient. She is agreeable with admission. Vital Signs Temperature 98.4 F 04/13/17 12:32 Pulse Rate 120 04/13/17 12:32 Respiratory Rate 20 04/13/17 12:32 Blood Pressure 152/80 04/13/17 12:32 O2 Sat by Pulse Oximetry 96 04/13/17 12:32 Temperature 98.4 F 04/13/17 12:32 Pulse Rate 95 04/13/17 14:29 Respiratory Rate 18 04/13/17 14:29 Blood Pressure 152/75 04/13/17 14:29 O2 Sat by Pulse Oximetry 94 04/13/17 14:29 Oxygen Delivery Oxygen Delivery Room Air Arrhythmia/Palpitations - MDM Narrative Medical decision making narrative: 66-year-old female presents to the ER due to A. fib RVR. Prior history. Recent admission with medication change. Hemodynamically stable. Patient started with Cardizem and placed on IV drip. Imaging and labs reviewed. Admitted to the hospitalist service for A. fib RVR. - Lab Data Lab results reviewed: Yes I reviewed the patient's lab results. Result diagrams: 04/13/17 13:00 04/13/17 13:00 Lab Results 04/13/17 04/13/17 04/13/17 Range/Units 13:00 13:00 13:00 WBC 5.8 (4.3-11.1) K/mcL RBC 4.91 (3.82-4.97) M/mcL Hgb 12.3 (11.5-15.4) g/dL Hct 40.8 (35.3-44.9) % MCV 83.1 (83.0-100.0) fL MCH 25.1 L (28.0-33.3) pg MCHC 30.1 L (31.6-35.5) g/dL RDW 16.0 H (11.5-14.5) % Plt Count 259 (140-400) K/mcL MPV 9.5 (9.4-12.4) fL Immature Gran % 0.5 (0-4) % Seg Neutrophils % 67.8 % Lymphocytes % 19.3 % Monocytes % 10.4 % Eosinophils % 1.7 % Basophils % 0.3 % Neutrophils # 4.0 (1.6-8.9) K/mcL Lymphocytes # 1.1 (0.6-4.6) K/mcL Monocytes # 0.6 (0.0-1.3) K/mcL Eosinophils # 0.1 (0.0-0.6) K/mcL Basophils # 0.0 (0.0-0.2) K/mcL PT 17.9 H (9.4-12.1) Seconds INR 1.6 APTT 29.5 D (26.0-36.0) Seconds Sodium 140 (136-145) mEq/L Potassium 3.9 (3.5-5.1) mEq/L Chloride 105 (98-107) mEq/L Carbon Dioxide 26 (23-29) mEq/L BUN 15 (8-23) mg/dL Creatinine 0.89 (0.60-1.20) mg/dL Est GFR ( Amer) > 60 (> 60) Est GFR (Non-Af Amer) > 60 (> 60) BUN/Creatinine Ratio 17 (6-26) Glucose 177 H (70-105) mg/dL Calculated Osmolality 295 (280-300) Calcium 8.7 (8.6-10.3) mg/dL Magnesium 1.9 (1.6-2.6) mg/dL Troponin I (< 0.04) ng/mL TSH 3.268 (0.340-5.600) mcIU/mL 04/13/17 Range/Units 13:00 WBC (4.3-11.1) K/mcL RBC (3.82-4.97) M/mcL Hgb (11.5-15.4) g/dL Hct (35.3-44.9) % MCV (83.0-100.0) fL MCH (28.0-33.3) pg MCHC (31.6-35.5) g/dL RDW (11.5-14.5) % Plt Count (140-400) K/mcL MPV (9.4-12.4) fL Immature Gran % (0-4) % Seg Neutrophils % % Lymphocytes % % Monocytes % % Eosinophils % % Basophils % % Neutrophils # (1.6-8.9) K/mcL Lymphocytes # (0.6-4.6) K/mcL Monocytes # (0.0-1.3) K/mcL Eosinophils # (0.0-0.6) K/mcL Basophils # (0.0-0.2) K/mcL PT (9.4-12.1) Seconds INR APTT (26.0-36.0) Seconds Sodium (136-145) mEq/L Potassium (3.5-5.1) mEq/L Chloride (98-107) mEq/L Carbon Dioxide (23-29) mEq/L BUN (8-23) mg/dL Creatinine (0.60-1.20) mg/dL Est GFR ( Amer) (> 60) Est GFR (Non-Af Amer) (> 60) BUN/Creatinine Ratio (6-26) Glucose (70-105) mg/dL Calculated Osmolality (280-300) Calcium (8.6-10.3) mg/dL Magnesium (1.6-2.6) mg/dL Troponin I < 0.03 (< 0.04) ng/mL TSH (0.340-5.600) mcIU/mL - Radiology Data Radiology results reviewed: Yes I reviewed the patient's radiology results. Chest X-Ray 04/13/17 12:37 IMPRESSION: Mild central vascular congestion. Minimal left basilar atelectasis or scarring. No other acute abnormality. D/ / Eitan Correa MD / Eitan Correa MD Interpreting Provider: Eitan Correa MD - EKG Data EKG attestation: Yes I reviewed and interpreted this EKG. EKG results narrative: EKG demonstrates what appears to be multifocal atrial tachycardia with a rate of 90 bpm. Normal axis. Normal intervals. Normal R-wave progression. No gross ST elevations or depressions. No acute ischemic findings. No ischemic changes compared to previous EKG dated 04/10/17. Critical Care Time Critical Care Time: Yes Total Critical Care Time: 35 Attestation: Critical care performed: Time is exclusive of separately billable procedures. Time includes: direct patient care, patient reassessment, coordination of patient care, interpretation of data (laboratory data, radiology data, and respiratory data), review of patient's medical records, medical consultation and documentation of patient care. Procedures included in critical care time: Procedures excluded from critical care time: S.Tyrel.Claudette. - S.Manuel Situation: Demographics, MOA Background: Presenting Complaint, Relevant PMH, Meds, & Allergies Assessment: Vital Signs, Course and respsone to treatment, Exam Concerns, Patient/Family Expectation, Pertinant Lab Results Recommendation: Barrier(s) to disposition, Recommendation based on pending studies, treatments, or consults S.B.ABarbie Report Given to: Dr. Ying Attestation Statement - Attestation Attestation: I, Stephen Durant DO, examined this patient [id number] and my medical decision-making was reviewed with Dr. Hugo Castillo, Resident Physician. I agree with the documented findings, disposition and treatment plan as described except to the extent set forth below. Please see my progress notes for details. 66-year-old female presents to the emergency room approximately one week after being discharged from the hospital. Patient was seen and evaluated and treated for what appears to be a upper respiratory infection and atrial fibrillation. Patient was transitioned from sotalol to Cardizem and amiodarone for home. She set up to be evaluated by Jose Armando Ness for possible electrophysiology treatment and ablation. Patient had intermittent twinges of chest pain over the last 24 hours. She has had some exertional dyspnea. She still has a productive cough that is deep and worse than what it was when she left the hospital. She was not on any antibiotics at the time of discharge. Patient currently denying chest pain fevers chills nausea vomiting or diarrhea. Denies shortness of breath while resting in the bed. Patient denies any specific history of fluid overload or concern for fluid overload at this time. Physical exam does confirm an irregular heartbeat at this time but no acute other issues lungs are clear with intermittent coarse centrally located breath sounds are clear. Abdomen is soft nontender. Patient does not have any acute signs of pitting edema she moves all 4 extremities she is alert she is oriented and she speaks in full sentences. Patient was started on a Cardizem drip. She will have her coagulation studies which are for Coumadin checked at this time patient also screening laboratory workup and chest x-ray. Disposition will be admission to hospital for further evaluation and definitive management. Patient will have approximately 35 minutes of critical care upon secondary to Cardizem drip for management of arrhythmia. Patient is otherwise resting comfortably in the bed no distress. We will continue to monitor his treatment course and admission process is completed. See detailed documentation of the physical exam, medical intervention, medical decision-making and disposition and resident physician's note 1400 Patient has negative workup for other joint abnormalities at this time. Cardizem was started. Hospitalist was paged for admission. Patient will be admitted at this time for definitive management. Blood pressure is maintained without any issue the request of hospitalist. We will continue to monitor in the emergency room until the admission process is completed
[2017-04-13 13:11] LABS: Basophils % 0.3 %; Eosinophils # 0.1 K/mcL (0.0-0.6); Eosinophils % 1.7 %; Hematocrit 40.8 % (35.3-44.9); Hemoglobin 12.3 g/dL (11.5-15.4); Immature Granulocytes % 0.5 % (0-4); Lymphocytes # 1.1 K/mcL (0.6-4.6); Lymphocytes % 19.3 %; Mean Corpuscular HGB Conc 30.1 g/dL (31.6-35.5); Mean Corpuscular Hemoglobin 25.1 pg (28.0-33.3); Mean Corpuscular Volume 83.1 fL (83.0-100.0); Mean Platelet Volume 9.5 fL (9.4-12.4); Monocytes # 0.6 K/mcL (0.0-1.3); Monocytes % 10.4 %; Platelet Count 259 K/mcL (140-400); Red Blood Count 4.91 M/mcL (3.82-4.97); Segmented Neutrophils % 67.8 %
[2017-04-13 13:21] LABS: INR 1.6; Prothrombin Time 17.9 Seconds (9.4-12.1)
[2017-04-13 13:25] LABS: Activated Partial Thrombo Time 29.5 Seconds (26.0-36.0)
[2017-04-13 13:36] LABS: BUN/Creatinine Ratio 17 (6-26); Blood Urea Nitrogen 15 mg/dL (8-23); Calcium 8.7 mg/dL (8.6-10.3); Carbon Dioxide 26 mEq/L (23-29); Chloride 105 mEq/L (98-107); Glucose 177 mg/dL (70-105); Magnesium 1.9 mg/dL (1.6-2.6); Osmolality,Calculated 295 (280-300); Potassium 3.9 mEq/L (3.5-5.1); Sodium 140 mEq/L (136-145); eGFR For African Americans > 60 (> 60); eGFR For Non-African Americans > 60 (> 60)
[2017-04-13 13:43] LABS: Thyroid Stimulating Hormone 3.268 mcIU/mL (0.340-5.600)
--- NOTE | 2017-04-13 14:38 | Internal Med History&Physical ---
Date of Encounter: 04/13/17 Time of Encounter: 14:36 Assessment and Plan (1) Atrial fibrillation with rapid ventricular response Current visit: No Status: Acute Paroxysmal atrial fibrillation now continues with rapid vent response heart rate is better now on Cardizem I will continue amiodarone given IV for furter laoding and then consult cardiology (2) Diabetes Current visit: No Status: Chronic Chronic resume home medication and place on sliding scale Qualifiers: Diabetes mellitus type: type 2 Diabetes mellitus complication status: with circulatory complication Diabetes mellitus complication detail: with other circulatory complications Diabetes mellitus skilled nursing insulin use: without skilled nursing use Qualified Code(s): E11.59 - Type 2 diabetes mellitus with other circulatory complications (3) HTN (hypertension) Current visit: No Status: Chronic Chronic and now well controlled resume home medication and beta brent Qualifiers: Hypertension type: essential hypertension Qualified Code(s): I10 - Essential (primary) hypertension (4) Bronchitis Current visit: Yes Status: Acute bronchitis chest does not show pneumonia but started on IV Levaquin Internal Medicine - H&P: HPI Chief complaint: papitation Admitted From: Emergency Dept Plans for Post Hospital Care: Home History of present illness: Ms. Merida is a 66 year old female Patient with history of relation, asthma, CHF, hypertension, TIA, patient recently in the hospital with atrial fibrillation with rapid ventricular response on sotalol she was then changed from sotalol to amiodarone and she was discharged 2 days ago on Sunday on amiodarone 400 mg twice a day patient continued to have episodes of the palpitation and decided to to come back to the emergency room heart rate was in the 130s started on Cardizem drip heart rate now in the 90 no chest pain patient having some cough productive of thick sputum chest x-ray does not show pneumonia patient will be admitted for further rate control and consult cardiology electively I will start her on IV amiodarone for futher amiodarone loading Past Med Surg Social Fam HX - Past Medical History Medical history: arthritis, asthma, atrial fibrillation, cancer, CHF, hypertension, TIA Psychiatric history: anxiety, depression - Past Surgical History Surgical History: breast surgery, cancer surgery, hysterectomy - Social History Smoking Status: Never smoker Smokeless Tobacco Status: No Alcohol use: none Drug use: none - Family History Father Family Member Ethnicity: Non- Living Status: Hx Family Cardiac Disorders: Yes (hypertension) Hx Family Respiratory Disorders: No Hx Family Cancer: No Hx Family GI Disorders: No Hx Family Endocrine Disorder: Yes (diabetes) Hx Family Neuromuscular Disorders: No Hx Family Neurologic Disorders: No Hx Family HEENT Disorders: No Hx Family Autoimmune Disorders: No Mother Adopted: No Family Member Ethnicity: Non- Living Status: Still Living Hx Family Cardiac Disorders: Yes (Afib) Hx Family Respiratory Disorders: No Hx Family Cancer: Yes (Colon) Hx Family GI Disorders: Yes (Cancer) Hx Family Endocrine Disorder: Yes Hx Family Neuromuscular Disorders: Yes (Stroke 2016) Hx Family Neurologic Disorders: No Hx Family HEENT Disorders: No Hx Family Autoimmune Disorders: No Internal Medicine - H&P: Meds Aspirin 81 mg PO DAILY 11/10/14 [History] Cinnamon Bark [Cinnamon] 1,000 mg PO DAILY 10/15/15 [History] Psyllium Husk [Daily Fiber] 2 tab PO DAILY 10/15/15 [History] Omeprazole [PriLOSEC] 20 mg PO DAILY 11/29/15 [History] amLODIPine [Norvasc] 5 mg PO DAILY 07/05/16 [History] Acetaminophen [Tylenol] 500 mg PO Q6HR PRN 08/25/16 [History] Simvastatin [Zocor] 20 mg PO DAILY 08/25/16 [History] Warfarin [Coumadin] 2.5 mg PO DAILY #0 08/26/16 [Rx] Amiodarone [Cordarone] 400 mg PO BID #60 tablet 04/11/17 [Rx] Diltiazem CD (24hr) [Cardizem CD] 180 mg PO DAILY #30 cap.er.24h 04/11/17 [Rx] 3 Allergy/AdvReac Type Severity Reaction Status Date / Time adhesive tape Allergy Hives Verified 08/25/16 10:06 All Systems PM: A 10-system review of systems was performed and is negative for pertinent findings except as documented above in the HPI. - Constitutional Constitutional: no chills, no fever(s), no night sweats - EENT Eyes: no change in vision, no discharge, no pain, no photophobia Ears: no ear discharge, no ear pain, no tinnitus Nose, mouth and throat: no dysphagia, no nasal discharge, no neck pain, no sore throat - Cardiovascular Cardiovascular ROS IM: irregular heart rhythm - Respiratory Respiratory: cough, dyspnea on exertion - Gastrointestinal Gastrointestinal: no abdominal pain, no diarrhea, no hematemesis, no hematochezia, no melena, no nausea, no vomiting - Genitourinary Genitourinary: no change in urinary stream, no dysuria, no flank pain, no hematuria - Musculoskeletal Musculoskeletal ROS IM: no numbness, no tingling - Constitutional Vitals: Temp Pulse Resp BP Pulse Ox 98.4 F 95 18 152/75 94 04/13/17 12:32 04/13/17 14:29 04/13/17 14:29 04/13/17 14:29 04/13/17 14:29 - Eye Eye exam: Present: PERRL, conjuntiva pink, sclera anicteric Pupils: Present: PERRL - Respiratory Respiratory exam: Present: rhonchi - Cardiovascular Cardiovascular exam: Present: irregular rhythm, systolic murmur - GI/Abdominal GI/Abdominal exam: Present: normal bowel sounds, soft, no peritoneal signs. Absent: distended, tenderness - Extremities Exam Extremities exam: Present: warm, radial pulses palpable and symmetrical. Absent : calf tenderness, cyanotic, pedal edema Internal Med - H&P Results - Labs CBC & Chem 7: 04/13/17 13:00 04/13/17 13:00 Labs: Short CBC 04/13/17 Range/Units 13:00 WBC 5.8 (4.3-11.1) K/mcL Hgb 12.3 (11.5-15.4) g/dL Hct 40.8 (35.3-44.9) % Plt Count 259 (140-400) K/mcL Neutrophils # 4.0 (1.6-8.9) K/mcL BMP 04/13/17 13:00 Sodium 140 Potassium 3.9 Chloride 105 Carbon Dioxide 26 BUN 15 Creatinine 0.89 Glucose 177 H Calcium 8.7 Cardiac Enzymes 04/13/17 Range/Units 13:00 Troponin I < 0.03 (< 0.04) ng/mL - Impressions ITS Impressions Chest X-Ray 04/13/17 12:37 IMPRESSION: Mild central vascular congestion. Minimal left basilar atelectasis or scarring. No other acute abnormality. D/ / Eitan Correa MD / Eitan Correa MD Interpreting Provider: Eitan Correa MD
[2017-04-13] MEDS ORDERED: Naloxone 0.4 MG/ML INJ IVP PRN (14:56)
[2017-04-13] MEDS ORDERED: MOM Conc 10 ML UD.LIQ PO PRN (14:56)
[2017-04-13] MEDS ORDERED: Ondansetron 4 MG/2 ML VIAL IVP PRN (14:56)
[2017-04-13] MEDS ORDERED: Amiodarone Premix 150 MG/100 ML BAG IVPB ONE (15:04)
[2017-04-13] MEDS ORDERED: Amiodarone Premix 360 MG/200 ML BAG IVC ONE (15:04)
[2017-04-13] MEDS ORDERED: Amiodarone Premix 360 MG/200 ML BAG IVC SCH (15:15)
--- NOTE | 2017-04-13 16:12 | Cardiology Consult Note ---
Date of Encounter: 04/13/17 Time of Encounter: 16:09 Assessment and Plan (1) Atrial fibrillation with rapid ventricular response Current Visit: No Status: Acute Recurrent atrial fibrillation with RVR despite amiodarone. Recently failed sotalol therapy. S/p [address]. Sched[address] with Dr. Jose Armando Ness to discuss ablation. Previously discussed options of titrating sotalol, changing to an alternate antiarrythmic and/ or AF ablation with Dr. Jose Armando Ness. Currently on amiodarone 400 mg BID and cardizem CD 180. TSH normal. TTE 08/2016- preserved EF. moderate diastolic dysfunction. Mild TR. Cardizem and amiodarone gtt started on admission. HR no 90- 100. Currently with worsening acute bronchitis. Rate control may be difficult due to respiratory status. Recommend xopenex over albuterol with bronchitis treatment to help with tachycardia. She is currently on coumadin for AC. Goal INR 2.0-3.0. Recommend pharmacy to dose. Discussion w patient/family: The assessment and plan as outlined above was discussed with the patient and/or family members who expressed understanding and agreement. All questions were answered. Thank you for involving us in the care of your patient. Please call with any questions. History of Present Illness Consult date: 04/13/17 Requesting physician: Hallie Ying Consult reason: Afib Chief complaint: Palpitations History of present illness: Ms. Merida is a 66 year old female with a past medical history of atrial fibrillation on coumadin, hypertension, history of TIA, and history of breast cancer s/p mastectomy who presents with recurrent palpitations. She was recently hospitalized 04/08/17 with atrial fibrillation with RVR and bronchitis. Sotalol was discontinued and amiodarone was started at that time. She was scheduled to follow with Dr. Jose Armando Ness to discuss ablation. Past Med Surg Social Fam HX - Past Medical History Attestation: Yes The following information was validated with the patient. Medical history: arthritis, asthma, atrial fibrillation, cancer, CHF, hypertension, TIA Psychiatric history: anxiety, depression - Past Surgical History Surgical History: breast surgery, cancer surgery, hysterectomy - Social History Smoking Status: Never smoker Smokeless Tobacco Status: No Alcohol use: none Drug use: none - Family History Father Family Member Ethnicity: Non- Living Status: Hx Family Cardiac Disorders: Yes (hypertension) Hx Family Respiratory Disorders: No Hx Family Cancer: No Hx Family GI Disorders: No Hx Family Endocrine Disorder: Yes (diabetes) Hx Family Neuromuscular Disorders: No Hx Family Neurologic Disorders: No Hx Family HEENT Disorders: No Hx Family Autoimmune Disorders: No Mother Adopted: No Family Member Ethnicity: Non- Living Status: Still Living Hx Family Cardiac Disorders: Yes (Afib) Hx Family Respiratory Disorders: No Hx Family Cancer: Yes (Colon) Hx Family GI Disorders: Yes (Cancer) Hx Family Endocrine Disorder: Yes Hx Family Neuromuscular Disorders: Yes (Stroke 2016) Hx Family Neurologic Disorders: No Hx Family HEENT Disorders: No Hx Family Autoimmune Disorders: No Medications and Allergies Aspirin 81 mg PO DAILY 11/10/14 [History] Cinnamon Bark [Cinnamon] 1,000 mg PO DAILY 10/15/15 [History] Psyllium Husk [Daily Fiber] 2 tab PO DAILY 10/15/15 [History] Omeprazole [PriLOSEC] 20 mg PO DAILY 11/29/15 [History] amLODIPine [Norvasc] 5 mg PO DAILY 07/05/16 [History] Acetaminophen [Tylenol] 500 mg PO Q6HR PRN 08/25/16 [History] Simvastatin [Zocor] 20 mg PO DAILY 08/25/16 [History] Warfarin [Coumadin] 2.5 mg PO DAILY #0 08/26/16 [Rx] Amiodarone [Cordarone] 400 mg PO BID #60 tablet 04/11/17 [Rx] Diltiazem CD (24hr) [Cardizem CD] 180 mg PO DAILY #30 cap.er.24h 04/11/17 [Rx] 3 Allergy/AdvReac Type Severity Reaction Status Date / Time adhesive tape Allergy Hives Verified 08/25/16 10:06 All Systems Review: A 10-system review of systems was performed and is negative for pertinent findings except as documented above in the HPI. Physical Examination Vital Signs, Last 4 Hours Pulse Resp BP Pulse Ox 04/13/17 15:56 94 04/13/17 14:53 86 18 143/89 94 04/13/17 14:29 95 18 152/75 94 General: Conversant, No Apparent Distress HEENT: Atraumatic, Normocephaly, Mucus Membranes Moist Neck: No JVD, Normal carotid pulses Cardiac: Other (Irregularly irregular) Lungs: Other (Respirations slightly labored, faint wheezes and rhonci scattered throughout. ) Neuro: Alert and responsive, No focal deficits noted Abdomen: Soft, Non-Tender Skin: No rashes noted on visualized skin Musculoskeletal: No Chest Wall Tenderness Extremities: No Clubbing, No Cyanosis, No Edema, Normal Pulses Results 04/13/17 13:00 04/13/17 13:00 - Imaging and Cardiology Echo: report reviewed Consult Discharge Plan - Plan Referrals: Aleksandar Strickland DO [Primary Care Provider] -
--- NOTE | 2017-04-13 17:31 | Electrocardiograph Report ---
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
[2017-04-13] MEDS ORDERED: *HR* Warfarin 2.5 MG TABLET PO ONE (18:00)
[2017-04-13] MEDS ORDERED: Warfarin perPT PO SCH (18:00)
[2017-04-13] MEDS: Levalbuterol 1 PUFF INHALER IH SCH ×2 (18:41→21:32)
[2017-04-13] MEDS ORDERED: traZODone 50 MG TABLET PO PRN (20:07)
[2017-04-13 20:18] LABS: Adenovirus Not Detected (Not Detect); Bordetella Pertussis Not Detected (Not Detect); Chlamydophila pneumoniae Not Detected (Not Detect); Coronavirus 229E Not Detected (Not Detect); Coronavirus HKU1 Not Detected (Not Detect); Coronavirus NL63 Not Detected (Not Detect); Coronavirus OC43 Not Detected (Not Detect); Human Metapneumovirus Not Detected (Not Detect); Human Rhinovirus/Enterovirus Not Detected (Not Detect); Influenza A Subtype 2009 H1 Not Detected (Not Detect); Influenza A Untypeable Not Detected (Not Detect); Influenza B Not Detected (Not Detect); Mycoplasma pneumoniae Not Detected (Not Detect); Parainfluenza Virus 1 Not Detected (Not Detect); Parainfluenza Virus 2 Not Detected (Not Detect); Parainfluenza Virus 3 Not Detected (Not Detect); Parainfluenza Virus 4 Not Detected (Not Detect); Respiratory Syncytial Virus Not Detected (Not Detect)
[2017-04-13] MEDS: Melatonin 3 MG TABLET PO PRN (20:27)
[2017-04-13] MEDS: Benzonatate 100 MG CAPSULE PO PRN (20:27)
[2017-04-13] MEDS: GuaiFENesin Liq 200 MG/10 ML UDC PO PRN (20:44)
[2017-04-14] MEDS: Levalbuterol 1 PUFF INHALER IH SCH ×4 (03:15→21:51)
[2017-04-14 04:08] LABS: INR 1.8; Prothrombin Time 19.5 Seconds (9.4-12.1)
[2017-04-14 04:16] LABS: BUN/Creatinine Ratio 23 (6-26); Blood Urea Nitrogen 20 mg/dL (8-23); Calcium 8.4 mg/dL (8.6-10.3); Carbon Dioxide 26 mEq/L (23-29); Chloride 104 mEq/L (98-107); Glucose 143 mg/dL (70-105); Magnesium 1.9 mg/dL (1.6-2.6); Osmolality,Calculated 291 (280-300); Potassium 3.5 mEq/L (3.5-5.1); Sodium 138 mEq/L (136-145); eGFR For African Americans > 60 (> 60); eGFR For Non-African Americans > 60 (> 60)
[2017-04-14] MEDS: GuaiFENesin Liq 200 MG/10 ML UDC PO PRN ×3 (06:46→23:00)
[2017-04-14] MEDS: Aspirin 81 MG TAB.CHEW PO SCH (08:47)
[2017-04-14] MEDS: Diltiazem CD (24hr) 240 MG CAPSULE PO SCH (08:47)
[2017-04-14] MEDS: Psyllium 1 PACKET POWD.PACK PO SCH (08:48)
[2017-04-14] MEDS ORDERED: amLODIPine 5 MG TABLET PO SCH (09:00)
[2017-04-14] MEDS ORDERED: (Cinnamon Bark [Cinnamon] 1,000 MG) PO SCH (09:00)
[2017-04-14] MEDS ORDERED: Diltiazem CD (24hr) 180 MG CAPSULE PO SCH (09:00)
[2017-04-14] MEDS ORDERED: *HR* Amiodarone 200 MG TABLET PO SCH (11:41)
--- NOTE | 2017-04-14 11:44 | Internal Med Progress Note ---
Date of Encounter: 04/14/17 Time of Encounter: 11:42 - Assessment and plan (1) Atrial fibrillation with RVR Current Visit: Yes Status: Acute Assessment and plan: Heart rate is better controlled. We will transition to oral amiodarone. Cardiology following. On anticoagulation with Coumadin. Moderate risk for complications. (2) Asthma exacerbation Current Visit: Yes Status: Acute Assessment and plan: Patient does have a history of asthma and appears to be having an episode of asthma exacerbation due to bronchitis. Continue treatment with bronchodilators. Will place patient on intravenous steroids. O2 supplementation as needed. Qualifiers: Asthma severity: moderate Asthma persistence: persistent Qualified Code(s ): J45.41 - Moderate persistent asthma with (acute) exacerbation (3) Bronchitis Current Visit: Yes Status: Acute Assessment and plan: Patient has been having cough with increased sputum production for the past 1 week. As his symptoms have not been getting any better, I believe it is appropriate to start patient on antibiotic at this time. We will place her on doxycycline. (4) Diabetes Current Visit: Yes Status: Chronic Assessment and plan: Will place patient on sliding scale coverage. Diabetic diet. Expect further elevation in blood sugars due to intravenous steroid use. Will adjust insulin regimen accordingly. Qualifiers: Diabetes mellitus type: type 2 Diabetes mellitus complication status: with circulatory complication Diabetes mellitus complication detail: with other circulatory complications Diabetes mellitus parts counterman insulin use: without parts counterman use Qualified Code(s): E11.59 - Type 2 diabetes mellitus with other circulatory complications (5) HTN (hypertension) Current Visit: Yes Status: Chronic Assessment and plan: Blood pressure is well controlled. Qualifiers: Hypertension type: essential hypertension Qualified Code(s): I10 - Essential (primary) hypertension - Subjective Interval history: Patient complains of continued shortness of breath and wheezing. Does continue to have cough. No fever or chills. Heart rate is better controlled. No chest pain at this time. No palpitations. No dizziness or lightheadedness. - Constitutional Vitals: Temp Pulse Resp BP Pulse Ox 98.2 F 91 20 132/85 96 04/14/17 08:46 04/14/17 07:45 04/14/17 07:00 04/14/17 07:00 04/14/17 07:00 General appearance: Present: cooperative, A&O X 3, answers questions appropriately - Respiratory Respiratory exam: Present: prolonged expiratory phase, wheezes. Absent: accessory muscle use, rales, rhonchi - Cardiovascular Cardiovascular exam: Present: irregular rhythm, +S1, +S2. Absent: diastolic murmur, gallop, rubs, systolic murmur - GI/Abdominal GI/Abdominal exam: Present: normal bowel sounds, soft, no peritoneal signs. Absent: distended, tenderness - Extremities Exam Extremities exam: Present: warm, radial pulses palpable and symmetrical. Absent : calf tenderness, cyanotic, pedal edema - Neurological Exam Neurological exam: Present: alert, CN II-XII intact, oriented X3, no focal deficits. Absent: facial droop, speech deficit Internal Medicine: Result - Labs CBC & Chem 7: 04/13/17 13:00 04/14/17 03:43 Labs: BMP 04/14/17 03:43 Sodium 138 Potassium 3.5 Chloride 104 Carbon Dioxide 26 BUN 20 Creatinine 0.86 Glucose 143 H Calcium 8.4 L Cardiac Enzymes 04/13/17 04/13/17 04/14/17 Range/Units 15:18 21:26 03:43 Troponin I < 0.03 < 0.03 < 0.03 (< 0.04) ng/mL - ABG Interpretation ABG results: PT/INR, D-dimer PT 19.5 Seconds (9.4-12.1) H 04/14/17 03:43 Consult Discharge Plan - Plan Referrals: Aleksandar Strickland DO [Primary Care Provider] -
[2017-04-14] MEDS ORDERED: *HR* Dextrose 50 % in Water (Syg) 50 ML SYRINGE IVP PRN (11:45)
[2017-04-14] MEDS ORDERED: D5% in Water 1,000 ML IVC PRN (11:45)
[2017-04-14] MEDS ORDERED: Dextrose Gel 15 GM/37.5 ML TUBE PO PRN ×2 (11:45)
[2017-04-14] MEDS: Doxycycline 100 MG CAPSULE PO SCH ×2 (12:56→20:02)
[2017-04-14] MEDS: methylPREDNISolone 125 MG/2 ML VIAL IVP SCH ×3 (12:57→23:00)
[2017-04-14] MEDS: Benzonatate 100 MG CAPSULE PO PRN ×2 (12:59→20:03)
--- NOTE | 2017-04-14 13:26 | Cardiology Progress Note ---
Date of Encounter: 04/14/17 Time of Encounter: 12:00 Assessment and Plan (1) Atrial fibrillation with rapid ventricular response Current Visit: No Status: Acute Recurrent atrial fibrillation with RVR despite recent initiation of amiodarone. Recently hospitalized 04/10/17 for afib. Soltalol discontinued and amiodarone started at that time and she did cinvert to NSR. S/p [address] with Dr[address] Jose Armando Ness to discuss ablation. Previously discussed options of titrating sotalol, changing to an alternate antiarrythmic and/ or AF ablation with Dr. Jose Armando Ness. Currently on amiodarone 400 mg BID and cardizem CD 180. TSH normal. TTE 08/2016- preserved EF. moderate diastolic dysfunction. Mild TR. Cardizem and amiodarone gtt started on this admission. Increased cardizem CD to 240 mg daily. Cardizem gtt was weaned off. D/c amiodarone gtt. Continue oral amiodarone 200 mg BID at discharge. She is now rate controlled. Rhythm control may be difficult in the setting of acute bronchitis. Continue rate control and f/u with Dr. Jose Armando Ness to discuss ablation. She agrees with plan. Avg Hr over last 12 hours was 90 bpm. She is currently on coumadin for AC. Goal INR 2.0-3.0. Recommend pharmacy to dose. Please call with questions. Cardiology will sign off. Discussion w patient/family: The assessment and plan as outlined above was discussed with the patient and/or family members who expressed understanding and agreement. All questions were answered. Thank you for involving us in the care of your patient. Please call with any questions. Subjective Principal diagnosis: atrial fibrillation with RVR, bronchitis Interval history: Ms. Merida is breathing better. Admits to intermittent palpitations. Objective Vital Signs Temp Pulse Resp BP Pulse Ox 04/14/17 08:46 98.2 F 04/14/17 07:45 91 04/14/17 07:00 91 20 132/85 96 04/14/17 06:00 89 20 127/61 96 04/14/17 05:00 92 21 135/66 94 04/14/17 04:34 95 04/14/17 04:00 95 20 129/73 90 04/14/17 03:57 98.2 F 04/14/17 03:17 18 92 04/14/17 03:00 83 22 115/71 91 04/14/17 02:00 98 20 115/71 91 04/14/17 01:12 92 20 134/85 90 04/14/17 00:06 93 20 134/66 92 04/13/17 23:00 98.3 F 107 23 129/71 92 04/13/17 22:00 76 18 155/76 93 04/13/17 21:34 18 93 04/13/17 21:29 80 25 157/87 94 04/13/17 20:30 98.5 F 04/13/17 20:00 87 22 153/84 93 04/13/17 19:33 101 18 153/79 93 04/13/17 18:21 110 12 136/96 94 04/13/17 17:10 95 22 128/96 93 04/13/17 16:03 90 04/13/17 15:56 94 04/13/17 14:53 86 18 143/89 94 04/13/17 14:29 95 18 152/75 94 04/13/17 13:44 94 18 151/76 94 Intake and Output 04/13/17 04/14/17 04/14/17 23:59 07:59 15:59 Intake Total 200 / 200 100 / 100 440 / 440 Output Total 350 / 350 100 / 100 300 / 300 Balance -150 / -150 0 / 0 140 / 140 Intake: IV Fluids 200 / 200 100 / 100 200 / 200 Amiodarone Drip Premix 360mg/ 200 / 200 200 / 200 200mL 360 mg In 200 ml @ 0.5 MG /MIN 16.667 mls/hr IVC CONT PERFECTO Rx#:[id number] Oral 240 / 240 Output: Urine 350 / 350 100 / 100 300 / 300 Other: Meal Dinner Lunch Percent of Meal Consumed 75% 100% Weight 101.8 kg Blood Glucose* 125 140 Patient Weight 04/14/17 23:59 Weight 101.8 kg General: Conversant, No Apparent Distress HEENT: Atraumatic, Normocephaly, Mucus Membranes Moist Neck: No JVD, Normal carotid pulses Cardiac: Other (Irregular) Lungs: Normal Breath Sounds, No Wheeze, Rales, Rhonchi Neuro: Alert and responsive, No focal deficits noted Abdomen: Soft, Non-Tender Skin: No rashes noted on visualized skin Musculoskeletal: No Chest Wall Tenderness Extremities: No Clubbing, No Cyanosis, No Edema, Normal Pulses Results 04/13/17 13:00 04/14/17 03:43 Lab Results 04/13/17 04/13/17 04/14/17 15:18 21:26 03:43 INR Sodium Potassium Chloride Carbon Dioxide BUN Creatinine Glucose Calcium Magnesium Troponin I < 0.03 < 0.03 < 0.03 04/14/17 04/14/17 03:43 03:43 INR 1.8 Sodium 138 Potassium 3.5 Chloride 104 Carbon Dioxide 26 BUN 20 Creatinine 0.86 Glucose 143 H Calcium 8.4 L Magnesium 1.9 Troponin I Consult Discharge Plan - Plan Referrals: Aleksandar Strickland DO [Primary Care Provider] -
[2017-04-14] MEDS: Insulin LISPRO 300 UNITS/3 ML VIAL SQ SCH (17:20)
[2017-04-14] MEDS ORDERED: *HR* Warfarin 3 MG TABLET PO ONE (18:00)
[2017-04-14] MEDS: *HR* Amiodarone 200 MG TABLET PO SCH (20:03)
[2017-04-14] MEDS ORDERED: Insulin LISPRO 300 UNITS/3 ML VIAL SQ SCH (21:00)
[2017-04-14] MEDS: Melatonin 3 MG TABLET PO PRN (23:51)
[2017-04-15] MEDS: Benzonatate 100 MG CAPSULE PO PRN ×3 (02:49→19:59)
[2017-04-15] MEDS: Levalbuterol 1 PUFF INHALER IH SCH ×4 (03:34→21:33)
[2017-04-15 08:50] LABS: INR 2.4; Prothrombin Time 26.3 Seconds (9.4-12.1)
[2017-04-15] MEDS: *HR* Amiodarone 200 MG TABLET PO SCH ×2 (08:58→19:59)
[2017-04-15] MEDS: Aspirin 81 MG TAB.CHEW PO SCH (08:58)
[2017-04-15] MEDS: Diltiazem CD (24hr) 240 MG CAPSULE PO SCH (08:58)
[2017-04-15] MEDS: Doxycycline 100 MG CAPSULE PO SCH ×2 (08:58→19:59)
[2017-04-15] MEDS: GuaiFENesin Liq 200 MG/10 ML UDC PO PRN ×3 (08:59→23:22)
[2017-04-15] MEDS: methylPREDNISolone 125 MG/2 ML VIAL IVP SCH ×3 (09:00→23:22)
[2017-04-15] MEDS: Insulin LISPRO 300 UNITS/3 ML VIAL SQ SCH ×3 (09:01→16:58)
[2017-04-15] MEDS: Psyllium 1 PACKET POWD.PACK PO SCH (09:01)
--- NOTE | 2017-04-15 15:48 | Internal Med Progress Note ---
Date of Encounter: 04/15/17 Time of Encounter: 10:40 - Assessment and plan (1) Atrial fibrillation with RVR Current Visit: Yes Status: Acute Assessment and plan: Patient remains in A. fib. Heart rate is better controlled but ranging between 100- 110/min. On Cardizem 240 mg. Anticoagulation with Coumadin. (2) Asthma exacerbation Current Visit: Yes Status: Acute Assessment and plan: Patient continues to have wheezing. We will continue bronchodilators and steroids. Continue doxycycline. Qualifiers: Asthma severity: moderate Asthma persistence: persistent Qualified Code(s ): J45.41 - Moderate persistent asthma with (acute) exacerbation (3) Bronchitis Current Visit: Yes Status: Acute (4) Diabetes Current Visit: Yes Status: Chronic Assessment and plan: Blood sugars remain elevated. We will add Levemir. Continue sliding scale coverage. 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 Qualifiers: Hypertension type: essential hypertension Qualified Code(s): I10 - Essential (primary) hypertension - Subjective Interval history: Patient complaints of shortness of breath, wheezing and cough. Not significantly improved despite the addition of steroids and doxycycline. Remains in A. fib. Denies any chest pain. Also reports increased shortness of breath with ambulation. This has been going on for several months now. - Constitutional Vitals: Temp Pulse Resp BP Pulse Ox 97.9 F 105 18 130/76 93 04/15/17 11:30 04/15/17 11:30 04/15/17 11:30 04/15/17 11:30 04/15/17 11:30 General appearance: Present: cooperative, A&O X 3, answers questions appropriately - Neck Neck exam general surgery: Present: supple, trachea midline. Absent: lymphadenopathy - Respiratory Respiratory exam: Present: prolonged expiratory phase, wheezes. Absent: accessory muscle use, rales, rhonchi - Cardiovascular Cardiovascular exam: Present: RRR, +S1, +S2. Absent: diastolic murmur, gallop, rubs, systolic murmur - GI/Abdominal GI/Abdominal exam: Present: normal bowel sounds, soft, no peritoneal signs. Absent: distended, tenderness - Extremities Exam Extremities exam: Present: warm, radial pulses palpable and symmetrical. Absent : calf tenderness, cyanotic, pedal edema - Neurological Exam Neurological exam: Present: alert, oriented X3, no focal deficits. Absent: facial droop, speech deficit Internal Medicine: Result - Labs CBC & Chem 7: 04/13/17 13:00 04/14/17 03:43 - ABG Interpretation ABG results: PT/INR, D-dimer PT 26.3 Seconds (9.4-12.1) H 04/15/17 08:09 Consult Discharge Plan - Plan Referrals: Aleksandar Strickland DO [Primary Care Provider] -
[2017-04-15] MEDS ORDERED: Insulin LISPRO 300 UNITS/3 ML VIAL SQ SCH (15:50)
[2017-04-15] MEDS ORDERED: *HR* Warfarin 3 MG TABLET PO ONE (18:00)
[2017-04-15] MEDS: Melatonin 3 MG TABLET PO PRN (23:22)
[2017-04-16 03:59] LABS: INR 3.2; Prothrombin Time 35.1 Seconds (9.4-12.1)
[2017-04-16] MEDS: Levalbuterol 1 PUFF INHALER IH SCH ×2 (04:31→09:18)
[2017-04-16] MEDS: Doxycycline 100 MG CAPSULE PO SCH (08:10)
[2017-04-16] MEDS: methylPREDNISolone 125 MG/2 ML VIAL IVP SCH (08:10)
[2017-04-16] MEDS: Aspirin 81 MG TAB.CHEW PO SCH (08:10)
[2017-04-16] MEDS: Diltiazem CD (24hr) 240 MG CAPSULE PO SCH (08:10)
[2017-04-16] MEDS: *HR* Amiodarone 200 MG TABLET PO SCH (08:10)
[2017-04-16] MEDS: Insulin LISPRO 300 UNITS/3 ML VIAL SQ SCH ×2 (08:11→11:34)
[2017-04-16] MEDS: Psyllium 1 PACKET POWD.PACK PO SCH (08:11)
[2017-04-16] MEDS: Benzonatate 100 MG CAPSULE PO PRN (08:56)
--- NOTE | 2017-04-16 11:28 | Discharge Summary ---
Date of Encounter: 04/16/17 Time of Encounter: 11:22 - Discharge Diagnosis (1) Atrial fibrillation with RVR Priority: Primary Status: Acute (2) Asthma exacerbation Priority: Secondary Status: Acute Qualifiers: Asthma severity: moderate Asthma persistence: persistent Qualified Code(s ): J45.41 - Moderate persistent asthma with (acute) exacerbation (3) Bronchitis Priority: Secondary Status: Acute (4) Diabetes Priority: Secondary Status: Chronic Qualifiers: Diabetes mellitus type: type 2 Diabetes mellitus complication status: with circulatory complication Diabetes mellitus complication detail: with other circulatory complications Diabetes mellitus longterm insulin use: without terminal operator use Qualified Code(s): E11.59 - Type 2 diabetes mellitus with other circulatory complications (5) HTN (hypertension) Priority: Secondary Status: Chronic Qualifiers: Hypertension type: essential hypertension Qualified Code(s): I10 - Essential (primary) hypertension - Discharge Medications Prescriptions: GuaiFENesin Liq [Robitussin Liq] 200 mg PO Q6HR PRN #250 ml PRN Reason: Cough Amiodarone [Cordarone] 200 mg PO BID #60 tablet Benzonatate [Tessalon] 200 mg PO TID PRN #60 capsule PRN Reason: Cough Budesonide [Pulmicort Flexhaler 180mcg] 180 mcg IH BID #1 aer.pow.ba Diltiazem CD (24hr) [Cardizem CD] 240 mg PO DAILY #30 cap.er.24h Doxycycline 100 mg PO BID #10 capsule metFORMIN [Glucophage] 500 mg PO BIDWM #60 tablet predniSONE [PredniSONE] 10 mg PO DAILY 12 Days tab Home Medications: Aspirin 81 mg PO DAILY 11/10/14 [History] Cinnamon Bark [Cinnamon] 1,000 mg PO DAILY 10/15/15 [History] Psyllium Husk [Daily Fiber] 2 tab PO DAILY 10/15/15 [History] Omeprazole [PriLOSEC] 20 mg PO DAILY 11/29/15 [History] amLODIPine [Norvasc] 5 mg PO DAILY 07/05/16 [History] Acetaminophen [Tylenol] 500 mg PO Q6HR PRN 08/25/16 [History] Simvastatin [Zocor] 20 mg PO DAILY 08/25/16 [History] Warfarin [Coumadin] 2.5 mg PO DAILY #0 08/26/16 [Rx] Amiodarone [Cordarone] 200 mg PO BID #60 tablet 04/16/17 [Rx] Benzonatate [Tessalon] 200 mg PO TID PRN #60 capsule 04/16/17 [Rx] Budesonide [Pulmicort Flexhaler 180mcg] 180 mcg IH BID #1 aer.pow.ba 04/16/17 [ Rx] Diltiazem CD (24hr) [Cardizem CD] 240 mg PO DAILY #30 cap.er.24h 04/16/17 [Rx] Doxycycline 100 mg PO BID #10 capsule 04/16/17 [Rx] GuaiFENesin Liq [Robitussin Liq] 200 mg PO Q6HR PRN #250 ml 04/16/17 [Rx] metFORMIN [Glucophage] 500 mg PO BIDWM #60 tablet 04/16/17 [Rx] predniSONE [PredniSONE] 10 mg PO DAILY 12 Days tab 04/16/17 [Rx] Allergies/Adverse Reactions: 3 Allergy/AdvReac Type Severity Reaction Status Date / Time adhesive tape Allergy Hives Verified 08/25/16 10:06 Date of admission: 04/14/17 13:18 Primary care physician: Victorino Donovan Consults: 04/16/17 09:18 Consult to Invasive Line Access Team [CONS] Routine Reason for Consult: limited vasc access. Line Type: EPIV Discharging clinician: Karly Vega Anticipated date of discharge: 04/16/17 - Patient Status Disposition: Home, Self-Care Condition: Good Functional capacity at discharge: uses cane/walker Overall status at discharge: patient is progressing back to baseline - Discharge Instructions Instructions: Atrial Fibrillation (DC), Asthma (DC), Diabetes Mellitus Type 2 in Adults (DC), Chronic Hypertension (DC) Follow Up With: Aleksandar Strickland DO [Primary Care Provider] - 04/18/17 12:00 pm - Diet and Activity Activity: increase activity as tolerated Diet: diabetic diet, low fat, low cholesterol, low salt diet Hospital course: Ms. Merida is a 66 year old female patient with history of atrial fibrillation , diabetes, hypertension, asthma who was hospitalized. Acute asthma exacerbation and bronchitis along with atrial fibrillation with RVR. Patient was initially placed on amiodarone drip. She had been on amiodarone following recent hospitalization here. She was evaluated by cardiology and recommended to continue amiodarone orally. Her Cardizem dosage was also increased. She is now doing better with regards to her A. fib and RVR. Her rate has been better controlled. For her asthma exacerbation and bronchitis, she was treated with IV steroids and bronchodilators along with doxycycline. Her symptoms have slowly improved. Her respiratory panel was negative for flu. Patient has slowly improved. She does have some continued shortness of breath when she takes in deep breaths especially with bouts of cough. She is however able to carry on with activities of daily living here in the hospital. She will be discharged today on oral amiodarone at 200 mg twice daily along with Cardizem 240 mg daily. She will follow up with cardiology for further management and possible ablation. For her bronchitis and asthma exhibition, she will complete antibiotic therapy with doxycycline and prednisone taper. Patient reported that she has trouble affording her steroid inhaler. Exercise work was consulted and helped with patient's medication. I have also sent a prescription for Pulmicort to her pharmacy. She is advised to return to the ER if she develops any worsening symptoms. I explained to the her that she may continue to have cough lingering for a few more weeks. I have prescribed her antitussives to help with this symptom. - Time Spent with Patient Total time spent providing and/or coordinating discharge services: Greater than 30 minutes (35 min) - Constitutional Vitals: Temp Pulse Resp BP Pulse Ox 97.7 F 91 16 136/71 92 04/16/17 08:23 04/16/17 08:23 04/16/17 09:19 04/16/17 08:23 04/16/17 09:19 General appearance: Present: cooperative, A&O X 3, answers questions appropriately - Neck Neck exam general surgery: Present: supple, trachea midline. Absent: lymphadenopathy - Respiratory Respiratory exam: Present: CTAB, prolonged expiratory phase. Absent: accessory muscle use, rales, rhonchi, wheezes - Cardiovascular Cardiovascular exam: Present: RRR, +S1, +S2. Absent: diastolic murmur, gallop, rubs, systolic murmur - GI/Abdominal GI/Abdominal exam: Present: normal bowel sounds, soft, no peritoneal signs. Absent: distended, tenderness
[2017-04-16 12:05] VITALS: BP 144/82
[2017-04-16] MEDS: GuaiFENesin Liq 200 MG/10 ML UDC PO PRN (12:13)
== END 2017-04-16 13:46 | disposition home or self-care (01) | DRG 309 ==
LOC: EMEROO 12:28 → 3ANU 12:28 → SUATTDRO 14:27 → 2NENU 14:29 → ICNU 15:22 → 2NNU 04-14 12:26
PROVIDERS: ADMIT Internal Medicine Cardiovascular Disease; ATTEND Internal Medicine

== ENCOUNTER 2017-06-18 07:09 | Inpatient (IN) ==
[2017-06-18] MEDS ORDERED: 0.9 % Sodium Chloride 1,000 ML IVC SCH ×2 (07:30→20:00)
[2017-06-18 08:10] LABS: INR 2.1; Prothrombin Time 23.1 Seconds (9.4-12.1)
--- NOTE | 2017-06-18 08:24 | Anesthesia Evaluation PreOp ---
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 History: Denies Any Significant HX Other Medical History: Diabetes Type II, Other (hx breast cancer) Anesthesia History: No Prior Anesthetic Complications, Past Anesthesia (BLAZE/BSO , mastectomy) Alcohol Use: none Drug use: none Medications and Allergies Aspirin 81 mg PO DAILY 11/10/14 [History] Cinnamon Bark [Cinnamon] 1,000 mg PO DAILY 10/15/15 [History] Psyllium Husk [Daily Fiber] 2 tab PO DAILY 10/15/15 [History] Omeprazole [PriLOSEC] 20 mg PO DAILY 11/29/15 [History] amLODIPine [Norvasc] 5 mg PO DAILY 07/05/16 [History] Acetaminophen [Tylenol] 500 mg PO Q6HR PRN 08/25/16 [History] Warfarin [Coumadin] 2.5 mg PO DAILY #0 08/26/16 [Rx] Diltiazem CD (24hr) [Cardizem CD] 240 mg PO DAILY #30 cap.er.24h 04/16/17 [Rx] Calcium Carbonate [Calcium] 500 mg PO DAILY 05/28/17 [History] Fluticasone Furoate [Arnuity Ellipta] 200 mcg IH DAILY 05/28/17 [History] Furosemide [Lasix] 40 mg PO DAILY PRN 05/28/17 [History] Melatonin 5 mg PO HS 05/28/17 [History] 3 Allergy/AdvReac Type Severity Reaction Status Date / Time adhesive tape Allergy Hives Verified 08/25/16 10:06 - Meds/Allergy Pre-op Review Medications Reviewed: Yes Allergies Reviewed: Yes Beta Blockers on Current Med List: No Anesthesia Exam Selected Entries 06/18/17 07:53 Temperature 97.4 F L Pulse Rate 113 Respiratory Rate 16 Blood Pressure 116/92 O2 Sat by Pulse Oximetry 96 Weight: 103kg BMI 38 NPO (# of Hours): 8 - HEENT Pupil (Motor): EOMI Mallampati: III Teeth: Poor dentition Oral Opening: Greater than 3 - CHEESE MAKER LOC: Oriented CHEESE MAKER Motor: Normal RUE, Normal LUE, Normal RLE, Normal LLE, Normal Face CHEESE MAKER Sensory: Normal: RUE, LUE, RLE, LLE, Face - Cardiac Rhythm: Regular Murmur: None - Pulmonary Breath Sounds: bilateral Clear Respiratory Effort: Symmetrical Anesthesia Assess/Plan ASA Score: 3 Modified [place] Scale for Level of Consciousness: Cooperative, oriented, and tranquil Anesthetic Plan: General Monitoring Plan: Standard Monitors, A-Line (placed by cardiology) Recovery Plan: PACU (agrees to GA)
[2017-06-18] MEDS ORDERED: *HR* Heparin 10,000 UNIT/10 ML VIAL ONE ×2 (08:35→08:58)
[2017-06-18] MEDS ORDERED: Heparin 1,000 UNITS/500 mL 1,500 ML ONE (08:35)
[2017-06-18] MEDS ORDERED: 0.9 % Sodium Chloride 1,000 ML ONE (08:35)
[2017-06-18] MEDS ORDERED: *HR* Midazolam HCl 2 MG/2 ML VIAL ONE (08:39)
[2017-06-18] MEDS ORDERED: *HR* FentaNYL (PF) 100 MCG/2 ML VIAL ONE (08:39)
--- NOTE | 2017-06-18 09:03 | Electrophysiology H & P ---
Date of Encounter: 07/03/17 Time of Encounter: 09:00 Assessment and Plan (1) Atrial fibrillation with rapid ventricular response Status: Acute The assessment and plan as outlined above was discussed with the patient and/or family members who expressed understanding and agreement. All questions were answered. History of longstanding PAF despite multiple antiarrythmics. We discussed risks and benefits of cryoablation and she agreed to proceed. History of Present Illness Chief complaint: Symptomatic PAF HPI: Ms. Merida is a 66 year old female with a history of PAF despite antiarrythmic therapy. We discussed risks and benefits of cryoablation and she agreed to proceed. Past Med Surg Social Fam HX - Past Medical History Medical history: asthma, atrial fibrillation, cancer, hypertension Psychiatric history: no psych history - Past Surgical History Surgical History: breast surgery, cancer surgery, hysterectomy - Social History Smoking Status: Never smoker Smokeless Tobacco Status: No Alcohol use: none Drug use: none - Family History Father Family Member Ethnicity: Non- Living Status: Hx Family Cardiac Disorders: Yes (hypertension) Hx Family Respiratory Disorders: No Hx Family Cancer: No Hx Family GI Disorders: No Hx Family Endocrine Disorder: Yes (diabetes) Hx Family Neuromuscular Disorders: No Hx Family Neurologic Disorders: No Hx Family HEENT Disorders: No Hx Family Autoimmune Disorders: No Mother Adopted: No Family Member Ethnicity: Non- Living Status: Still Living Hx Family Cardiac Disorders: Yes (Afib) Hx Family Respiratory Disorders: No Hx Family Cancer: Yes (Colon) Hx Family GI Disorders: Yes (Cancer) Hx Family Endocrine Disorder: Yes Hx Family Neuromuscular Disorders: Yes (Stroke 2016) Hx Family Neurologic Disorders: No Hx Family HEENT Disorders: No Hx Family Autoimmune Disorders: No Medications and Allergies Aspirin 81 mg PO DAILY 11/10/14 [History] Cinnamon Bark [Cinnamon] 1,000 mg PO DAILY 10/15/15 [History] Psyllium Husk [Daily Fiber] 2 tab PO DAILY 10/15/15 [History] Omeprazole [PriLOSEC] 20 mg PO DAILY 11/29/15 [History] Acetaminophen [Tylenol] 500 mg PO Q6HR PRN 08/25/16 [History] Calcium Carbonate [Calcium] 500 mg PO DAILY 05/28/17 [History] Fluticasone Furoate [Arnuity Ellipta] 200 mcg IH DAILY 05/28/17 [History] Melatonin 5 mg PO HS 05/28/17 [History] Warfarin [Coumadin] 2.5 mg PO [id number] 06/19/17 [History] Diltiazem CD (24hr) [Cardizem CD] 360 mg PO DAILY #30 cap.er.24h 06/25/17 [Rx] Furosemide [Lasix] 40 mg PO DAILY #10 06/25/17 [Rx] Metoprolol XL (24 HR) Succ [Toprol Xl] 25 mg PO DAILY #30 tab.er.24h 06/25/17 [ Rx] Patient Taking Own Medication 2 each PO DAILY each 06/25/17 [Rx] Warfarin [Coumadin] 2.5 mg PO 1800 tablet 06/25/17 [Rx] 3 Allergy/AdvReac Type Severity Reaction Status Date / Time adhesive tape Allergy Hives Verified 08/25/16 10:06 All Systems Review: The remainder of the systems were reviewed and are negative Physical Examination Vital Signs, Last 4 Hours Temp Pulse Resp BP Pulse Ox 06/18/17 07:53 97.4 F L 113 16 116/92 96 General: Conversant, No Apparent Distress HEENT: Atraumatic, Normocephaly, Mucus Membranes Moist Neck: No JVD, Normal carotid pulses Cardiac: Reg Rate and Rhythm, Normal S1 and S2, No Murmur Lungs: Normal Breath Sounds, No Wheeze, Rales, Rhonchi Neuro: Alert and responsive, No focal deficits noted Abdomen: Soft, Non-Tender Skin: No rashes noted on visualized skin Musculoskeletal: No Chest Wall Tenderness Results 06/24/17 03:05 06/24/17 03:05 Lab Results 06/18/17 07:54 INR 2.1
[2017-06-18] MEDS ORDERED: ISOVUE-370 200 ML INFUS..BTL IV ONE (09:52)
[2017-06-18] MEDS ORDERED: Protamine Sulfate 50 MG/5 ML VIAL IVP ONE ×2 (11:51→11:52)
[2017-06-18] MEDS ORDERED: Naloxone 0.4 MG/ML INJ IVP PRN (12:15)
[2017-06-18] MEDS ORDERED: Furosemide 40 MG TABLET PO PRN (12:17)
[2017-06-18] MEDS ORDERED: *HR* Atropine Sulfate 1 MG/10 ML SYRINGE ONE (14:49)
[2017-06-18] MEDS ORDERED: Ondansetron 4 MG/2 ML VIAL IVP ONE (15:41)
[2017-06-18] MEDS: 0.9 % Sodium Chloride 250 ML IV SCH ×4 (16:07→22:01)
[2017-06-18] MEDS: *HR* Morphine 2 MG/ML SYRINGE IVP PRN ×2 (17:22→21:42)
[2017-06-18] MEDS: Melatonin 3 MG TABLET PO SCH (21:42)
[2017-06-19] MEDS: *HR* Morphine 2 MG/ML SYRINGE IVP PRN (04:30)
[2017-06-19] MEDS: FLUTICASONE FUROATE 200 MCG IH SCH (07:34)
[2017-06-19] MEDS: Aspirin 81 MG TAB.CHEW PO SCH (08:35)
[2017-06-19] MEDS: amLODIPine 5 MG TABLET PO SCH (08:35)
[2017-06-19] MEDS: Diltiazem CD (24hr) 240 MG CAPSULE PO SCH (08:35)
[2017-06-19] MEDS: Psyllium 1 PACKET POWD.PACK PO SCH (08:35)
[2017-06-19] MEDS: (Cinnamon Bark [Cinnamon] 1,000 MG) PO SCH (08:36)
[2017-06-19] MEDS ORDERED: *HR* Warfarin 2.5 MG TABLET PO SCH (09:00)
--- NOTE | 2017-06-19 09:38 | Electrocardiograph Report ---
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
[2017-06-19] MEDS ORDERED: traMADol 50 MG TABLET PO PRN (09:59)
--- NOTE | 2017-06-19 12:45 | Electrophysiology ProgressNote ---
Date of Encounter: 06/19/17 Time of Encounter: 12:39 Assessment and Plan (1) Status post cryoablation Current Visit: Yes Status: Acute S/P cryoablation yesterday for A-Fib. Currently SR. Continue Cardizem and Coumadin. She developed right hematoma yesterday evening, pressure applied multiple times throughout the evening. No evidence of hematoma currently, moderate amount of ecchymosis. No active bleeding. Left femoral site healing well. No bleeding, hematoma or ecchymosis noted. Denies chest pain or dyspnea. She does endorse right femoral pain, dizziness upon standing. Pt wishes to stay another night for observation. CBC ordered. PRN tramadol ordered for right groin and back pain. Continue to follow. Has martins catheter in, will order to remove. Possible d/c home tomorrow. Discussion w patient/family: The assessment and plan as outlined above was discussed with the patient and/or family members who expressed understanding and agreement. All questions were answered. Thank you for involving us in the care of your patient. Please call with any questions. I will discuss all the above with Dr. Clark Ness and make changes as necessary. Subjective Principal diagnosis: PAF s/p cryoablation Interval history: S/P cryoablation yesterday for PAF. Developed right femoral hematoma yesterday evening. Reports groin pain. Also has a martins catheter in. Reports dizziness upon standing. Denies chest pain or dyspnea. Objective Vital Signs, Last 4 Hours Pulse Resp BP Pulse Ox 06/19/17 11:24 87 06/19/17 11:22 87 20 115/60 94 06/19/17 11:02 88 94 06/19/17 09:06 91 112/61 Vital Signs Temp Pulse Resp BP Pulse Ox 06/19/17 11:24 87 06/19/17 11:22 87 20 115/60 94 06/19/17 11:02 88 94 06/19/17 09:06 91 112/61 06/19/17 08:35 80 06/19/17 08:07 98.3 F 80 20 120/75 95 06/19/17 04:49 98.4 F 81 20 106/64 94 06/18/17 23:05 97.8 F 80 19 100/59 90 06/18/17 21:45 95 108/76 04/16/18 21:30 92 97/59 /16/18 21:15 90 83/56 /16/18 21:00 90 98/55 /16/18 20:55 87 97/57 /16/18 20:50 78 80/50 04/16/18 20:45 78 83/65 /16/18 20:40 78 89/58 /16/18 20:35 79 90/61 /16/18 20:30 97.7 F 80 20 87/56 90 16/18 20:15 73 84/64 /16/18 20:10 76 92/53 /16/18 20:05 75 74/63 /16/18 20:00 77 90/59 /16/18 19:30 77 107/62 1618 19:15 76 103/63 16/18 18:45 77 16 92/60 96 1618 18:30 77 20 97/61 95 16/18 18:15 84 20 111/86 95 1618 17:30 73 20 92/65 95 1618 16:46 97.9 F 73 16 102/63 96 1618 16:05 72 20 113/83 94 1618 15:49 76 16 102/62 96 1618 15:30 793 111/66 1618 15:20 75 119/74 1618 15:15 74 113/71 1618 15:10 77 112/70 1618 15:05 77 113/69 18 15:00 74 108/66 1618 14:55 76 104/65 1618 14:51 74 117/85 1618 14:46 69 92/40 16/18 14:41 68 80/47 1618 14:32 66 72/43 1618 14:30 66 72/43 16/18 14:00 97.4 F L 78 18 107/78 95 1618 13:45 97.4 F L 80 16 126/74 96 16/18 13:35 79 1618 13:30 97.4 F L 81 16 101/77 96 1618 13:22 93 06/18/17 13:15 77 16 118/67 96 06/18/17 13:10 98.5 F 77 16 143/83 94 06/18/17 13:09 78 16 130/72 97 06/18/17 13:03 97.3 F L 78 18 143/83 97 Intake and Output 06/18/17 06/19/17 06/19/17 23:59 07:59 15:59 Intake Total 730 / 730 240 / 240 606 / 606 Output Total 500 / 500 200 / 200 0 / 0 Balance 230 / 230 40 / 40 606 / 606 Intake: IV Fluids 250 / 250 126 / 126 0.9 % Sodium Chloride 250 ML @ 250 / 250 250 mls/hr IV .Q1H [facility] Rx#: [id number] 0.9 % Sodium Chloride 1,000 ML 126 / 126 @ 25 mls/hr IVC .Q24H [facility] Rx#: [id number] Oral 480 / 480 240 / 240 480 / 480 Output: Straight Cath 100 / 100 Catheter 400 / 400 200 / 200 0 / 0 Other: Meal Breakfast Percent of Meal Consumed 100% Weight 105.5 kg Patient Weight 06/19/17 23:59 Weight 105.5 kg General: Conversant, No Apparent Distress HEENT: Atraumatic, Normocephaly, Mucus Membranes Moist Neck: No JVD, Normal carotid pulses Cardiac: Reg Rate and Rhythm, Normal S1 and S2, No Murmur Lungs: Normal Breath Sounds, No Wheeze, Rales, Rhonchi Neuro: Alert and responsive, No focal deficits noted Abdomen: Soft, Non-Tender Skin: Other (right femoral access site moderate amount of ecchymosis, but area is soft, no hematoma currently and no active bleeding. Left side no bleeding, hematoma or ecchymosis noted.) Musculoskeletal: No Chest Wall Tenderness Extremities: No Clubbing, No Cyanosis, No Edema, Normal Pulses - VTE Reasons for not Prescribing Prophylaxis: Not indicated-Anticoagulated or INR therapeutic Consult Discharge Plan - Plan Referrals: [facility] [Other] - 06/26/17 8:45 am (THIS IS FOR A FOLLOW UP FOR A CARDIOVERSION/WAS ALREADY SCHEDULED TO SEE DR. CLARK NESS.) Clark Ness MD [Partnered Physician] - 07/20/17 11:15 am ([facility]) Aleksandar Strickland DO [Primary Care Provider] - 06/21/17 8:00 am
[2017-06-19 12:53] LABS: Basophils % 0.1 %; Hematocrit 25.6 % (35.3-44.9); Hemoglobin 7.9 g/dL (11.5-15.4); Immature Granulocytes % 0.8 % (0-4); Lymphocytes # 1.1 K/mcL (0.6-4.6); Lymphocytes % 5.2 %; Mean Corpuscular HGB Conc 30.9 g/dL (31.6-35.5); Mean Corpuscular Hemoglobin 24.5 pg (28.0-33.3); Mean Corpuscular Volume 79.3 fL (83.0-100.0); Mean Platelet Volume 10.2 fL (9.4-12.4); Monocytes # 1.3 K/mcL (0.0-1.3); Monocytes % 6.1 %; Neutrophils # 18.4 K/mcL (1.6-8.9); Platelet Count 322 K/mcL (140-400); Red Blood Count 3.23 M/mcL (3.82-4.97); Red Cell Distribution Width 17.2 % (11.5-14.5); Segmented Neutrophils % 87.8 %
--- NOTE | 2017-06-19 14:17 | Event Note ---
Date of Encounter: 06/19/17 Time of Encounter: 14:15 - Cardiology Event Note HGB resulted--7.9. Suspect secondary to bleeding and hematoma that formed at right femoral site yesterday evening. Given her back pain and decreased HGB ( was 11.6 in recent weeks), will order STAT CT of ABD/Pelvis without contrast. Further recommendations to follow.
[2017-06-19 14:52] LABS: Calcium 8.5 mg/dL (8.6-10.3)
[2017-06-19] MEDS ORDERED: 0.9 % Sodium Chloride 500 ML IVC ONE (15:16)
[2017-06-19] MEDS ORDERED: *HR* HYDROcodone/Acet 5/325 mg TABLET PO PRN ×2 (15:22→15:33)
--- NOTE | 2017-06-19 15:28 | Event Note ---
Date of Encounter: 06/19/17 Time of Encounter: 15:00 - Cardiology Event Note Labs reviewed with Dr. Burnett and also Dr. Jose Armando Ness. Appears to have XIN, likely secondary to hematoma/anemia, hypotension yesterday. SCr 2.38, discussed with Dr. Jose Armando Ness, start IVF at 100 mL/hr. K 6.0, will give kayexalate x1 dose now. Repeat CBC, BMP in AM. Further recommendations to follow. Short CBC 06/19/17 Range/Units 12:37 WBC 20.9 H (4.3-11.1) K/mcL Hgb 7.9 L (11.5-15.4) g/dL Hct 25.6 L (35.3-44.9) % Plt Count 322 (140-400) K/mcL Neutrophils # 18.4 H (1.6-8.9) K/mcL BMP 06/19/17 Range/Units 14:21 Sodium 136 (136-145) mEq/L Potassium 6.0 H (3.5-5.1) mEq/L Chloride 107 (98-107) mEq/L Carbon Dioxide 21 L (23-29) mEq/L BUN 53 H (8-23) mg/dL Creatinine 2.38 H (0.60-1.20) mg/dL Glucose 161 H (70-105) mg/dL Calcium 8.5 L (8.6-10.3) mg/dL
[2017-06-19] MEDS: 0.9 % Sodium Chloride 1,000 ML IVC SCH ×2 (16:02→21:37)
[2017-06-19] MEDS: *HR* Warfarin 2.5 MG TABLET PO SCH (18:15)
[2017-06-19] MEDS: Melatonin 3 MG TABLET PO SCH (21:14)
[2017-06-20 03:23] LABS: Basophils % 0.1 %; Hematocrit 21.8 % (35.3-44.9); Hemoglobin 6.8 g/dL (11.5-15.4); Immature Granulocytes % 1.2 % (0-4); Immature Platelets 1.4 % (1.1-6.1); Lymphocytes # 1.3 K/mcL (0.6-4.6); Lymphocytes % 7.1 %; Mean Corpuscular HGB Conc 31.2 g/dL (31.6-35.5); Mean Corpuscular Volume 80.1 fL (83.0-100.0); Monocytes % 5.6 %; Neutrophils # 15.3 K/mcL (1.6-8.9); Nucleated Red Blood Cells 0.1 /100 WBC (0); Platelet Count 291 K/mcL (140-400); Red Blood Count 2.72 M/mcL (3.82-4.97); Red Cell Distribution Width 17.2 % (11.5-14.5)
[2017-06-20 03:42] LABS: Calcium 7.8 mg/dL (8.6-10.3); Potassium 5.2 mEq/L (3.5-5.1)
[2017-06-20] MEDS: FLUTICASONE FUROATE 200 MCG IH SCH ×2 (07:55→08:22)
[2017-06-20] MEDS: 0.9 % Sodium Chloride 1,000 ML IVC SCH (08:02)
[2017-06-20] MEDS: Aspirin 81 MG TAB.CHEW PO SCH (08:03)
[2017-06-20] MEDS: (Cinnamon Bark [Cinnamon] 1,000 MG) PO SCH (08:03)
[2017-06-20] MEDS: amLODIPine 5 MG TABLET PO SCH (08:03)
[2017-06-20] MEDS: Diltiazem CD (24hr) 240 MG CAPSULE PO SCH (08:03)
[2017-06-20] MEDS: Psyllium 1 PACKET POWD.PACK PO SCH (08:04)
[2017-06-20] MEDS ORDERED: Furosemide 20 MG/2 ML VIAL IVP ONE (10:52)
--- NOTE | 2017-06-20 10:55 | Cardiology Progress Note ---
Date of Encounter: 06/20/17 Time of Encounter: 10:53 Assessment and Plan (1) Status post cryoablation Current Visit: Yes Status: Acute S/P cryoablation 06/18/17 for A-Fib. Currently SR. Continue Cardizem and Coumadin. She developed right hematoma evening of 06/18, pressure applied multiple times throughout the evening. No evidence of hematoma currently, moderate amount of ecchymosis. No active bleeding. Left femoral site healing well. No bleeding, hematoma or ecchymosis noted. CBC ordered yesterday--HGB had dropped to 7.9. Baseline 11-13 range. HGB 6.8 today--thought to be secondary to hematoma formation. ABD/Pelvic CT ordered yesterday. No acute finding. Hematoma noted. Will transfuse 1 unit PRBC. Plan to recheck H&H later today 2 hours post transfusion. Unable to stop Coumadin given high CVA risk s/p cryoablation. Not stable for d/c. Also developed XIN suspect secondary to hypotension post cryoablation. Creatinine 2.38 yesterday, 1.70 today. Improved with IV fluids. Now normotensive. Continue to monitor. (2) XIN (acute kidney injury) Current Visit: Yes Status: Acute At baseline, normal renal function. XIN post cryo likely secondary to hypotension. Now normotensive. Creatinine 2.38 yesterday, given IV fluids, 1.70 today. Continue to monitor. (3) Anemia Current Visit: Yes Status: Acute Acute, s/p hematoma after cryoablation. HGB 7.9 yesterday, 6.8 today. Baseline 11-13 range. Transfuse 1 unit PRBC today. Recheck H&H [address] ABD/Pelvis no acute finding, hematoma noted. Continue to monitor closely. Qualifiers: Anemia type: unspecified type Qualified Code(s): D64.9 - Anemia, unspecified (4) Fluid overload Current Visit: Yes Status: Acute Hx of diastolic dysfunction. EF preserved. Worsening LE edema and dyspnea after receiving continuous IV fluids throughout the night for XIN. Net positive +2981mL. Will also be receiving 1 unit PRBC. Will give one time dose of IV Lasix 20mg. Stop IV fluids. Qualifiers: Hypervolemia type: other Qualified Code(s): E87.79 - Other fluid overload Discussion w patient/family: The assessment and plan as outlined above was discussed with the patient and/or family members who expressed understanding and agreement. All questions were answered. Thank you for involving us in the care of your patient. Please call with any questions. I will discuss all the above with Dr. Burnett and make changes as necessary. Subjective Principal diagnosis: PAF s/p cryoablation Interval history: S/P cryoablation 06/18/17. Developed hypotension and hematoma post procedure, and subsequent XIN and acute drop in HGB. HGB 7.9 yesterday, 6.8 today. Creatinine 2.38 yesterday, improved 1.70 today. Pt reports episode of mild chest discomfort overnight. Reports worsening LE edema and dyspnea. CT ABD and pelvis, no acute findings. Hematoma noted, no hemorrhage or active bleeding. Jones has been removed, pt reports urine output is improving. Objective Vital Signs, Last 4 Hours Temp Pulse Resp BP Pulse Ox 06/20/17 08:23 81 06/20/17 07:33 98.2 F 81 18 126/67 93 Vital Signs Temp Pulse Resp BP Pulse Ox 06/20/17 08:23 81 06/20/17 07:33 98.2 F 81 18 126/67 93 06/20/17 03:29 98.0 F 83 16 114/63 96 06/19/17 23:54 97.8 F 81 17 115/53 96 06/19/17 20:05 79 06/19/17 18:52 98.2 F 83 22 118/64 94 06/19/17 18:16 92 06/19/17 16:09 98.1 F 77 24 127/69 94 06/19/17 15:43 79 94 06/19/17 11:24 87 06/19/17 11:22 87 20 115/60 94 06/19/17 11:02 88 94 Intake and Output 06/19/17 06/20/17 06/20/17 23:59 07:59 15:59 Intake Total 1620 / 1620 1220 / 1220 Output Total 150 / 150 525 / 525 Balance 1470 / 1470 -525 / -525 1220 / 1220 Intake: IV Fluids 1500 / 1500 1000 / 1000 0.9 % Sodium Chloride 1,000 ML 1000 / 1000 1000 / 1000 @ 100 mls/hr IVC .Q10H [facility] Rx#: [id number] 0.9 % Sodium Chloride 500 ML @ 500 / 500 1875 mls/hr IVC .Q16M ONE Rx#: [id number] Oral 120 / 120 220 / 220 Output: Urine 150 / 150 525 / 525 Other: Meal Dinner Breakfast Percent of Meal Consumed 50% 40% Weight 113.6 kg Patient Weight 06/20/17 23:59 Weight 113.6 kg General: Conversant, No Apparent Distress HEENT: Atraumatic, Normocephaly, Mucus Membranes Moist Neck: No JVD, Normal carotid pulses Cardiac: Reg Rate and Rhythm, Normal S1 and S2, No Murmur Lungs: Normal Breath Sounds, No Wheeze, Rales, Rhonchi Neuro: Alert and responsive, No focal deficits noted Abdomen: Soft, Non-Tender Skin: No rashes noted on visualized skin Musculoskeletal: No Chest Wall Tenderness Extremities: Other (moderate LE edema noted.) Results 06/20/17 02:56 06/20/17 02:56 Lab Results 06/19/17 06/19/17 06/20/17 12:37 14:21 02:56 WBC 20.9 H 17.8 H Hgb 7.9 L 6.8 L Hct 25.6 L 21.8 L Plt Count 322 291 Sodium 136 Potassium 6.0 H Chloride 107 Carbon Dioxide 21 L BUN 53 H Creatinine 2.38 H Glucose 161 H Calcium 8.5 L 06/20/17 02:56 WBC Hgb Hct Plt Count Sodium 136 Potassium 5.2 H Chloride 111 H Carbon Dioxide 18 L BUN 55 H Creatinine 1.70 H Glucose 164 H Calcium 7.8 L Short CBC 06/20/17 06/19/17 Range/Units 02:56 12:37 WBC 17.8 H 20.9 H (4.3-11.1) K/mcL Hgb 6.8 L 7.9 L (11.5-15.4) g/dL Hct 21.8 L 25.6 L (35.3-44.9) % Plt Count 291 322 (140-400) K/mcL Neutrophils # 15.3 H 18.4 H (1.6-8.9) K/mcL BMP 06/20/17 06/19/17 Range/Units 02:56 14:21 Sodium 136 136 (136-145) mEq/L Potassium 5.2 H 6.0 H (3.5-5.1) mEq/L Chloride 111 H 107 (98-107) mEq/L Carbon Dioxide 18 L 21 L (23-29) mEq/L BUN 55 H 53 H (8-23) mg/dL Creatinine 1.70 H 2.38 H (0.60-1.20) mg/dL Glucose 164 H 161 H (70-105) mg/dL Calcium 7.8 L 8.5 L (8.6-10.3) mg/dL Impressions Abdomen/Pelvis CT 06/19/17 14:06 IMPRESSION: No acute intra-abdominal or intrapelvic findings. Partially imaged intramuscular hematoma (post ablation changes?) Involving anterior right/ musculature with surrounding inflammatory changes and soft tissue gas. Probable residual contrast in the right kidney versus a amorphous cortical calcifications. Correlate for any evidence of renal dysfunction. No hydronephrosis. Decompressed urinary bladder containing foci of nondependent gas, presumably from recent instrumentation although cannot exclude underlying cystitis. Correlate with urinalysis. Tiny right pleural effusion. D/ / Fernando Vargas / Fernando Vargas Interpreting Provider: Fernando Vargas Active Medications Acetaminophen (Tylenol) 500 mg PO Q6HR PRN PRN Reason: MILD PAIN Stop: 12/18/17 12:18 Last Admin: 06/19/17 10:58 Dose: 500 mg Hydrocodone Bitart/Acetaminophen (Tolar 5-325 Mg) 1 tab PO Q4HR PRN PRN Reason: mild to moderate pain Stop: 12/19/17 15:23 Last Admin: 06/20/17 08:18 Dose: 1 tab Amlodipine Besylate (Norvasc) 5 mg PO DAILY [facility] PRN Reason: Protocol Stop: 12/19/17 09:01 Last Admin: 06/20/17 08:03 Dose: 5 mg Aspirin (Aspirin) 81 mg PO DAILY [facility] Stop: 12/19/17 09:01 Last Admin: 06/20/17 08:03 Dose: 81 mg Calcium Carbonate (Tums) 500 mg PO DAILY [facility] Stop: 12/19/17 09:01 Last Admin: 06/20/17 08:03 Dose: 500 mg Diltiazem HCl (Cardizem Cd) 240 mg PO DAILY [facility] Stop: 12/19/17 09:01 Last Admin: 06/20/17 08:03 Dose: 240 mg Furosemide (Lasix) 40 mg PO DAILY PRN PRN Reason: Edema Stop: 12/18/17 12:18 Furosemide (Lasix) 20 mg IVP ONCE ONE Stop: 06/20/17 10:53 Melatonin (Melatonin) 6 mg PO HS PERFECTO Stop: 12/18/17 21:01 Last Admin: 06/19/17 21:14 Dose: 6 mg Morphine Sulfate (Morphine Sulfate) 2 mg IVP Q4HR PRN; Protocol PRN Reason: Chest Pain Stop: 12/18/17 17:14 Last Admin: 06/19/17 04:30 Dose: 2 mg Naloxone HCl (Narcan) 0.4 mg IVP Q2MIN PRN PRN Reason: SEE COMMENTS Stop: 12/18/17 12:16 Omeprazole (Prilosec) 20 mg PO DAILY [facility] PRN Reason: Protocol Stop: 12/19/17 09:01 Last Admin: 06/20/17 08:03 Dose: 20 mg Pharmacy Profile Note (Patient Taking Own Medication) 0 each PO DAILY [facility] Stop: 12/19/17 09:01 Last Admin: 06/20/17 08:03 Dose: Not Given Pharmacy Profile Note (Patient Taking Own Medication) 2 each PO DAILY [facility]ECT[facility] Stop: 12/21/17 09:01 Pharmacy Profile Note (Patient Taking Own Medication) 1 each IH DAILYR PERFECTO Stop: 12/19/17 10:01 Warfarin Sodium (Coumadin) 2.5 mg PO 1800 PERFECTO Stop: 12/19/17 18:01 Last Admin: 06/19/17 18:15 Dose: 2.5 mg - EKG Interpretation EKG results cardiology: personally reviewed (SR, no acute changes), other (12 hr tele AVG HR 85, SR.) - VTE Reasons for not Prescribing Prophylaxis: Not indicated-Anticoagulated or INR therapeutic Consult Discharge Plan - Plan Referrals: [facility] [Other] - 06/26/17 8:45 am (THIS IS FOR A FOLLOW UP FOR A CARDIOVERSION/WAS ALREADY SCHEDULED TO SEE DR. 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
[2017-06-20 16:33] LABS: Hemoglobin 7.5 g/dL (11.5-15.4)
[2017-06-20] MEDS: *HR* Warfarin 2.5 MG TABLET PO SCH (17:19)
[2017-06-20] MEDS: Melatonin 3 MG TABLET PO SCH (22:44)
[2017-06-21 04:36] LABS: Basophils % 0.1 %; Hemoglobin 8.2 g/dL (11.5-15.4); Immature Granulocytes % 0.9 % (0-4); Lymphocytes # 1.2 K/mcL (0.6-4.6); Lymphocytes % 12.4 %; Mean Corpuscular HGB Conc 31.5 g/dL (31.6-35.5); Mean Corpuscular Hemoglobin 26.2 pg (28.0-33.3); Mean Corpuscular Volume 83.1 fL (83.0-100.0); Mean Platelet Volume 9.6 fL (9.4-12.4); Monocytes # 0.7 K/mcL (0.0-1.3); Monocytes % 7.2 %; Nucleated Red Blood Cells 0.2 /100 WBC (0); Platelet Count 237 K/mcL (140-400); Red Blood Count 3.13 M/mcL (3.82-4.97); Red Cell Distribution Width 16.6 % (11.5-14.5); Segmented Neutrophils % 79.4 %
[2017-06-21 04:47] LABS: INR 2.7
[2017-06-21 04:51] LABS: BUN/Creatinine Ratio 43 (6-26); Blood Urea Nitrogen 35 mg/dL (8-23); Calcium 7.9 mg/dL (8.6-10.3); Carbon Dioxide 24 mEq/L (23-29); Chloride 110 mEq/L (98-107); Glucose 125 mg/dL (70-105); Osmolality,Calculated 297 (280-300); Potassium 4.4 mEq/L (3.5-5.1); Sodium 139 mEq/L (136-145); eGFR For African Americans > 60 (> 60); eGFR For Non-African Americans > 60 (> 60)
[2017-06-21] MEDS: amLODIPine 5 MG TABLET PO SCH (07:39)
[2017-06-21] MEDS: Diltiazem CD (24hr) 240 MG CAPSULE PO SCH (07:39)
[2017-06-21] MEDS: Aspirin 81 MG TAB.CHEW PO SCH (07:39)
[2017-06-21] MEDS: PSYLLIUM FIBER PO SCH (07:40)
[2017-06-21] MEDS: (Cinnamon Bark [Cinnamon] 1,000 MG) PO SCH (07:41)
[2017-06-21] MEDS: FLUTICASONE FUROATE 200 MCG IH SCH (07:42)
--- NOTE | 2017-06-21 09:57 | Cardiology Progress Note ---
Date of Encounter: 06/21/17 Time of Encounter: 09:55 Assessment and Plan (1) Status post cryoablation Current Visit: Yes Status: Acute S/P cryoablation 06/18/17 for A-Fib. Went into A-Fib this AM--HR 80s-low 100s. Continue Cardizem and Coumadin. Developed right hematoma evening of 06/18. No evidence of hematoma currently. Moderate/large amount of ecchymosis. No active bleeding. Left femoral site healing well. No bleeding, hematoma or ecchymosis noted. HGB dropped as low as 6.8--thought to be secondary to bleeding and hematoma. ABD /Pelvic CT no acute bleeding. Partial hematoma noted on CT. Received 2 units PRBC. HGB 8.2 today. Now appears volume overloaded. Give one time dose Lasix 40mg IV. Received 20mg IV dose yesterday. Unable to stop Coumadin given high CVA risk s/p cryoablation. Developed XIN secondary to hypotension post cryoablation, now resolved. Not stable for d/c. If H&H and renal function remain stable, and volume status improves, possible d/c tomorrow. (2) XIN (acute kidney injury) Current Visit: Yes Status: Acute XIN post cryo likely secondary to hypotension. Now normotensive. Creatinine 2.38 06/19. XIN now resolved. Creatinine 0.82 today, back to baseline. Monitor closely with IV Lasix. (3) Anemia Current Visit: Yes Status: Acute Acute blood loss anemia anemia post op, s/p hematoma and right groin bleeding after cryoablation. HGB as low as 6.8 yesterday. Baseline 11-13 range. Transfused 2 units PRBC yesterday. HGB 8.[address] ABD/Pelvis no acute finding, partial hematoma noted. Recheck H&H later today. Also check tomorrow AM. Qualifiers: Anemia type: other cause Other causes of anemia: other cause, not classified Qualified Code(s): D64.89 - Other specified anemias (4) Fluid overload Current Visit: Yes Status: Acute Hx of diastolic dysfunction. EF preserved. Worsening LE edema and dyspnea after receiving IV fluids then 2 units PRBCs yesterday. Received one time dose of IV Lasix 20mg yesterday. Remains fluid overloaded--LE edema, dyspnea. Will give another one time dose of IV lasix 40mg now. Continue to monitor. Cumulative I/O +2869mL. 1.5L fluid restriction, Na restriction, daily weights, strict I/Os. Qualifiers: Hypervolemia type: other Qualified Code(s): E87.79 - Other fluid overload Discussion w patient/family: The assessment and plan as outlined above was discussed with the patient and/or family members who expressed understanding and agreement. All questions were answered. Thank you for involving us in the care of your patient. Please call with any questions. I will discuss all the above with Dr. Arcos and make changes as necessary. Subjective Principal diagnosis: PAF s/p cryoablation Interval history: S/P cryoablation 06/18/17. Developed hypotension and hematoma post procedure, and subsequent XIN and acute drop in HGB, lowest 6.8. Has received 2 units PRBC , HGB 8.2 this AM. Renal function has now normalized, creatinine 0.82. INR 2.7. Pt currently A-Fib at bedside, HR 80s, occasionally increasing >100. Pt reports palpitations, can tell she is in A-Fib. Worsening LE edema and dyspnea. Objective Vital Signs, Last 4 Hours Temp Pulse Resp BP Pulse Ox 06/21/17 07:00 98.1 F 76 16 137/66 94 Vital Signs Temp Pulse Resp BP Pulse Ox 06/21/17 07:00 98.1 F 76 16 137/66 94 06/20/17 22:46 98.4 F 81 16 133/68 94 06/20/17 19:51 98.3 F 79 16 130/70 95 06/20/17 19:36 98.4 F 82 17 125/68 94 06/20/17 18:35 98.2 F 80 20 121/66 95 06/20/17 15:05 98.3 F 77 18 119/63 96 06/20/17 15:00 80 06/20/17 14:20 97.8 F 83 20 137/67 95 06/20/17 11:16 98.2 F 83 18 124/61 95 06/20/17 11:14 84 06/20/17 11:01 97.8 F 85 16 122/66 96 Intake and Output 06/20/17 06/21/17 06/21/17 23:59 07:59 15:59 Intake Total 650 / 650 120 / 120 360 / 360 Output Total 325 / 325 400 / 400 Balance 325 / 325 -280 / -280 360 / 360 Intake: IV Fluids 200 / 200 0.9 % Sodium Chloride 1,000 ML 200 / 200 @ 100 mls/hr IVC .Q10H [facility] Rx#: [id number] Oral 150 / 150 120 / 120 360 / 360 Blood Product 300 / 300 Rbcs Leuko Poor As-1 Unit 300 / 300 [id number] Output: Urine 325 / 325 400 / 400 Other: Meal Dinner Breakfast Percent of Meal Consumed 100% 100% General: Conversant, No Apparent Distress HEENT: Atraumatic, Normocephaly, Mucus Membranes Moist Neck: Normal carotid pulses Cardiac: Other (irregularly irregular) Lungs: Other (diminished) Neuro: Alert and responsive, No focal deficits noted Abdomen: Soft, Non-Tender Skin: No rashes noted on visualized skin Musculoskeletal: No Chest Wall Tenderness Extremities: Other (2+ BLE edema) Results 06/21/17 03:47 06/21/17 03:47 Lab Results 06/20/17 06/21/17 06/21/17 16:17 03:47 03:47 WBC 10.0 Hgb 7.5 L 8.2 L Hct 24.0 L 26.0 L Plt Count 237 INR 2.7 Sodium Potassium Chloride Carbon Dioxide BUN Creatinine Glucose Calcium 06/21/17 03:47 WBC Hgb Hct Plt Count INR Sodium 139 Potassium 4.4 Chloride 110 H Carbon Dioxide 24 BUN 35 H Creatinine 0.82 Glucose 125 H Calcium 7.9 L Short CBC 06/21/17 06/20/17 Range/Units 03:47 16:17 WBC 10.0 (4.3-11.1) K/mcL Hgb 8.2 L 7.5 L (11.5-15.4) g/dL Hct 26.0 L 24.0 L (35.3-44.9) % Plt Count 237 (140-400) K/mcL Neutrophils # 8.0 (1.6-8.9) K/mcL BMP 06/21/17 Range/Units 03:47 Sodium 139 (136-145) mEq/L Potassium 4.4 (3.5-5.1) mEq/L Chloride 110 H (98-107) mEq/L Carbon Dioxide 24 (23-29) mEq/L BUN 35 H (8-23) mg/dL Creatinine 0.82 (0.60-1.20) mg/dL Glucose 125 H (70-105) mg/dL Calcium 7.9 L (8.6-10.3) mg/dL Active Medications Acetaminophen (Tylenol) 500 mg PO Q6HR PRN PRN Reason: MILD PAIN Stop: 12/18/17 12:18 Last Admin: 06/19/17 10:58 Dose: 500 mg Hydrocodone Bitart/Acetaminophen ([place]ven 5-325 Mg) 1 tab PO Q4HR PRN PRN Reason: mild to moderate pain Stop: 12/19/17 15:23 Last Admin: 06/20/17 08:18 Dose: 1 tab Amlodipine Besylate (Norvasc) 5 mg PO DAILY [facility] PRN Reason: Protocol Stop: 12/19/17 09:01 Last Admin: 06/21/17 07:39 Dose: 5 mg Aspirin (Aspirin) 81 mg PO DAILY [facility] Stop: 12/19/17 09:01 Last Admin: 06/21/17 07:39 Dose: 81 mg Calcium Carbonate (Tums) 500 mg PO DAILY [facility] Stop: 12/19/17 09:01 Last Admin: 06/21/17 07:39 Dose: 500 mg Diltiazem HCl (Cardizem Cd) 240 mg PO DAILY [facility] Stop: 12/19/17 09:01 Last Admin: 06/21/17 07:39 Dose: 240 mg Furosemide (Lasix) 40 mg PO DAILY PRN PRN Reason: Edema Stop: 12/18/17 12:18 Melatonin (Melatonin) 6 mg PO HS PERFECTO Stop: 12/18/17 21:01 Last Admin: 06/20/17 22:44 Dose: 6 mg Morphine Sulfate (Morphine Sulfate) 2 mg IVP Q4HR PRN; Protocol PRN Reason: Chest Pain Stop: 12/18/17 17:14 Last Admin: 06/19/17 04:30 Dose: 2 mg Naloxone HCl (Narcan) 0.4 mg IVP Q2MIN PRN PRN Reason: SEE COMMENTS Stop: 12/18/17 12:16 Omeprazole (Prilosec) 20 mg PO DAILY [facility] PRN Reason: Protocol Stop: 12/19/17 09:01 Last Admin: 06/21/17 07:40 Dose: 20 mg Pharmacy Profile Note (Patient Taking Own Medication) 0 each PO DAILY [facility] Stop: 12/19/17 09:01 Last Admin: 06/21/17 07:41 Dose: Not Given Pharmacy Profile Note (Patient Taking Own Medication) 2 each PO DAILY [facility] Stop: 12/21/17 09:01 Last Admin: 06/21/17 07:40 Dose: 2 each Pharmacy Profile Note (Patient Taking Own Medication) 1 each IH DAILYR PERFECTO Stop: 12/19/17 10:01 Last Admin: 06/21/17 07:42 Dose: 1 each Warfarin Sodium (Coumadin) 2.5 mg PO 1800 PERFECTO Stop: 12/19/17 18:01 Last Admin: 06/20/17 17:19 Dose: 2.5 mg - EKG Interpretation EKG results cardiology: other (12 hr tele AVG HR 80, PAF) - VTE Reasons for not Prescribing Prophylaxis: Not indicated-Anticoagulated or INR therapeutic Consult Discharge Plan - Plan Referrals: [facility] [Other] - 06/26/17 8:45 am (THIS IS FOR A FOLLOW UP FOR A CARDIOVERSION/WAS ALREADY SCHEDULED TO SEE DR. 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
[2017-06-21] MEDS ORDERED: Furosemide 40 MG/4 ML VIAL IVP ONE ×2 (10:15→18:00)
[2017-06-21 13:24] LABS: Hematocrit 30.5 % (35.3-44.9); Hemoglobin 9.6 g/dL (11.5-15.4)
[2017-06-21] MEDS: *HR* Warfarin 2.5 MG TABLET PO SCH (16:04)
[2017-06-21] MEDS: Sennosides/Docusate Sodium TABLET PO PRN (20:59)
[2017-06-21] MEDS: Melatonin 3 MG TABLET PO SCH (21:00)
[2017-06-22 04:59] LABS: Basophils % 0.2 %; Eosinophils # 0.1 K/mcL (0.0-0.6); Eosinophils % 0.6 %; Hematocrit 27.1 % (35.3-44.9); Hemoglobin 8.8 g/dL (11.5-15.4); Immature Granulocytes % 0.6 % (0-4); Lymphocytes # 1.2 K/mcL (0.6-4.6); Lymphocytes % 13.8 %; Mean Corpuscular HGB Conc 32.5 g/dL (31.6-35.5); Mean Corpuscular Hemoglobin 26.5 pg (28.0-33.3); Mean Corpuscular Volume 81.6 fL (83.0-100.0); Mean Platelet Volume 9.6 fL (9.4-12.4); Monocytes # 0.7 K/mcL (0.0-1.3); Monocytes % 8.5 %; Neutrophils # 6.6 K/mcL (1.6-8.9); Nucleated Red Blood Cells 0.3 /100 WBC (0); Platelet Count 260 K/mcL (140-400); Red Blood Count 3.32 M/mcL (3.82-4.97); Red Cell Distribution Width 16.3 % (11.5-14.5); Segmented Neutrophils % 76.3 %
[2017-06-22 05:13] LABS: BUN/Creatinine Ratio 36 (6-26); Blood Urea Nitrogen 28 mg/dL (8-23); Calcium 8.5 mg/dL (8.6-10.3); Carbon Dioxide 27 mEq/L (23-29); Chloride 107 mEq/L (98-107); Glucose 131 mg/dL (70-105); Osmolality,Calculated 299 (280-300); Potassium 3.9 mEq/L (3.5-5.1); Sodium 141 mEq/L (136-145); eGFR For African Americans > 60 (> 60); eGFR For Non-African Americans > 60 (> 60)
[2017-06-22] MEDS: (Cinnamon Bark [Cinnamon] 1,000 MG) PO SCH (07:38)
[2017-06-22] MEDS: Aspirin 81 MG TAB.CHEW PO SCH (07:38)
[2017-06-22] MEDS: PSYLLIUM FIBER PO SCH (07:38)
[2017-06-22] MEDS: amLODIPine 5 MG TABLET PO SCH (07:38)
[2017-06-22] MEDS: Diltiazem CD (24hr) 240 MG CAPSULE PO SCH (07:38)
[2017-06-22] MEDS: FLUTICASONE FUROATE 200 MCG IH SCH (09:58)
[2017-06-22] MEDS: Sennosides/Docusate Sodium TABLET PO PRN (10:23)
--- NOTE | 2017-06-22 12:13 | Cardiology Progress Note ---
Date of Encounter: 06/22/17 Time of Encounter: 12:11 Assessment and Plan (1) Status post cryoablation Current Visit: Yes Status: Acute S/P cryoablation 06/18/17 for A-Fib. Currently atrial fibrillation with mild RVR. HR 110- 130 after ambulating. Avg HR over 24 hours is 106 bpm. Continue Cardizem and Coumadin. Discontinue norvasc and increase cardizem. Post procedure she developed a right groin hematoma confirmed on CT scan. Hgb dropped as low as 6.8 and she required blood transfuson with 2 PRBC. Hgb 8.8, reduced from yesterday. Discussed with Dr. Arcos, recommend vascular consult to evaluate for bleeding or increasing hematoma. BLE dopplers ordered to evaluate. Left femoral site with excoriation noted today. Daily sterile dressing changes ordered. Unable to stop Coumadin given high CVA risk s/p cryoablation. Developed XIN secondary to hypotension post cryoablation, now resolved. Not stable for d/c at this time. Continue to monitor hgb. Vascular surgery consulted. Will check limited echo to r/o pericardial effusion. (2) Fluid overload Current Visit: Yes Status: Acute Hx of diastolic dysfunction. EF preserved. Worsening LE edema and dyspnea after receiving IV fluids and 2 units PRBCs yesterday. Repaet IV lasix today. Remains fluid overloaded on exam. 1.5L fluid restriction, Na restriction, daily weights, strict I/Os. Qualifiers: Hypervolemia type: other Qualified Code(s): E87.79 - Other fluid overload (3) Atrial fibrillation with RVR Current Visit: No Status: Acute Developed atrial fibrillation with RVR after er procedure. Avg HR over 24 hours is 109. WIll discontinue norvasc and increase cardizem. Continue coumadin for AC. (4) XIN (acute kidney injury) Current Visit: Yes Status: Acute XIN post cryo likely secondary to hypotension. Now normotensive. Creatinine 2.38 06/19. XIN now resolved. Creatinine 0.82 today, back to baseline. Monitor closely with IV Lasix. (5) Anemia Current Visit: Yes Status: Acute Acute blood loss anemia anemia post op, s/p hematoma and right groin bleeding after cryoablation. HGB as low as 6.8. Baseline 11-13 range. Transfused 2 units PRBC during stay. HGB 8.8, reduced from 9.[address] ABD/Pelvis no acute finding, partial hematoma noted. Vascular consult to evaluate hematoma. Continue to monitor H/H. Qualifiers: Anemia type: other cause Other causes of anemia: other cause, not classified Qualified Code(s): D64.89 - Other specified anemias Discussion w patient/family: The assessment and plan as outlined above was discussed with the patient and/or family members who expressed understanding and agreement. All questions were answered. Thank you for involving us in the care of your patient. Please call with any questions. Subjective Principal diagnosis: PAF s/p cryoablation Interval history: Ms. Merida is sitting up in her chair. She states that she just ambulated around her room and washed up. She did have SOB. C/o re-current lower back pain. Occasional chest pressure while laying flat. Objective Vital Signs, Last 4 Hours Temp Pulse Resp BP Pulse Ox 06/22/17 11:00 97.7 F 107 18 125/82 96 General: Conversant, Other (Respirations noted to be labored after ambulating, ill appearing) HEENT: Atraumatic, Normocephaly, Mucus Membranes Moist Neck: Normal carotid pulses Cardiac: Other (Irregularly irregular) Lungs: Other (Lungs with diinished airmovement in bases. Respirations slightly labored after ambulating. ) Neuro: Alert and responsive, No focal deficits noted Abdomen: Soft, Non-Tender Skin: No rashes noted on visualized skin Musculoskeletal: No Chest Wall Tenderness Extremities: Other (2+ pitting edema in BLE. Large area of ecchymosis around right thigh. Soft to palpation. Mildly tender. Right groin access noted to have pinpoint opening. No drainage. Left groin with mild ecoriation. ) Results 06/22/17 04:09 06/22/17 04:09 Lab Results 06/21/17 06/22/17 06/22/17 13:11 04:09 04:09 WBC 8.7 Hgb 9.6 L 8.8 L Hct 30.5 L 27.1 L Plt Count 260 Sodium 141 Potassium 3.9 Chloride 107 Carbon Dioxide 27 BUN 28 H Creatinine 0.77 Glucose 131 H Calcium 8.5 L - Imaging and Cardiology Echo: pending - EKG Interpretation EKG results cardiology: personally reviewed - VTE Reasons for not Prescribing Prophylaxis: Not indicated-Anticoagulated or INR therapeutic Consult Discharge Plan - Plan Referrals: [facility] [Other] - 06/26/17 8:45 am (THIS IS FOR A FOLLOW UP FOR A CARDIOVERSION/WAS ALREADY SCHEDULED TO SEE DR. CLARK NESS.) Sherri Spence, SAUSAGE CUTTER [Advanced Practice Nurse] - 06/27/17 8:30 am (THIS IS THE SAUSAGE CUTTER AT [facility], HE HAD NOTHING AVAILABLE) Clark Ness MD [Partnered Physician] - 07/20/17 11:15 am ([facility]OABLATION)
[2017-06-22] MEDS ORDERED: Furosemide 40 MG/4 ML VIAL IVP ONE (12:34)
--- NOTE | 2017-06-22 15:08 | Electrocardiograph Report ---
[address] [address] Test Date: 2017-06-19 Pat Name: Erica Merida Department: 110 Room: 2N01 Gender: F Tip Finisher: : 1950 Requested By: Jose Armando Ness Order Number: [id number] Reading MD: Alli Arcos Measurements Intervals [place] Rate: 77 P: 68 TN: 175 QRS: 25 QRSD: 90 T: 50 QT: 375 QTc: 407 Interpretive Statements SINUS RHYTHM LOW QRS VOLTAGE IN PRECORDIAL LEADS Electronically Signed On 06-22-2017 15:07:21 EDT by Alli Arcos
--- NOTE | 2017-06-22 15:35 | Vascular/Endovasc Consult Note ---
Date of Encounter: 06/22/17 Time of Encounter: 15:33 Assessment and Plan (1) Hematoma of right thigh Current Visit: Yes Status: Acute I reviewed the CT scan which shows a isolated hematoma in the proximal anterior thigh. The patient will have a duplex scan of the right groin and thigh area this afternoon to rule out pseudoaneurysm. If this is a nonconclusive study or there are other issues identified she will need to have a CT scan with IV contrast of the pelvis and thigh. Right now the patient is hemodynamically stable. I explained the situation to the patient. All questions were answered. Qualifiers: Encounter type: initial encounter Qualified Code(s): S70.11XA - Contusion of right thigh, initial encounter - History of Present Illness Consult date: 06/22/17 Requesting physician: Alli Arcos Consult reason: Right lower extremity swelling Chief complaint: Right lower external swelling History of present illness: Ms. Merida is a 66 year old female who had undergone atrial ablation therapy for atrial fibrillation on Sunday. The patient had punctures via the right groin. Post-procedurally the patient was noted to have swelling in the groin and also swelling of the lower extremity. She went on to have a CT scan without contrast did which showed hematoma in the anterior thigh region. The patient was noted to have persistent edema and vascular surgery is asked to see the patient. The patient states that she has noted swelling in both lower extremities though more so on the right side than on the left. She has no significant pain. Past Med Surg Social Fam HX - Past Medical History Medical history: asthma, atrial fibrillation, cancer, hypertension Psychiatric history: no psych history - Past Surgical History Surgical History: breast surgery, cancer surgery, hysterectomy - Social History Smoking Status: Never smoker Smokeless Tobacco Status: No Alcohol use: none Drug use: none - Family History Father Family Member Ethnicity: Non- Living Status: Hx Family Cardiac Disorders: Yes (hypertension) Hx Family Respiratory Disorders: No Hx Family Cancer: No Hx Family GI Disorders: No Hx Family Endocrine Disorder: Yes (diabetes) Hx Family Neuromuscular Disorders: No Hx Family Neurologic Disorders: No Hx Family HEENT Disorders: No Hx Family Autoimmune Disorders: No Mother Adopted: No Age: 88 Family Member Ethnicity: Non- Living Status: Still Living Hx Family Cardiac Disorders: Yes (Afib) Hx Family Respiratory Disorders: No Hx Family Cancer: Yes (Colon) Hx Family GI Disorders: Yes (Cancer) Hx Family Endocrine Disorder: Yes Hx Family Neuromuscular Disorders: Yes (Stroke 2016) Hx Family Neurologic Disorders: No Hx Family HEENT Disorders: No Hx Family Autoimmune Disorders: No Medications and Allergies Aspirin 81 mg PO DAILY 11/10/14 [History] Cinnamon Bark [Cinnamon] 1,000 mg PO DAILY 10/15/15 [History] Psyllium Husk [Daily Fiber] 2 tab PO DAILY 10/15/15 [History] Omeprazole [PriLOSEC] 20 mg PO DAILY 11/29/15 [History] amLODIPine [Norvasc] 5 mg PO DAILY 07/05/16 [History] Acetaminophen [Tylenol] 500 mg PO Q6HR PRN 08/25/16 [History] Diltiazem CD (24hr) [Cardizem CD] 240 mg PO DAILY #30 cap.er.24h 04/16/17 [Rx] Calcium Carbonate [Calcium] 500 mg PO DAILY 05/28/17 [History] Fluticasone Furoate [Arnuity Ellipta] 200 mcg IH DAILY 05/28/17 [History] Furosemide [Lasix] 40 mg PO DAILY PRN 05/28/17 [History] Melatonin 5 mg PO HS 05/28/17 [History] Warfarin [Coumadin] 2.5 mg PO SUMOTUWEFRSA 06/19/17 [History] 3 Allergy/AdvReac Type Severity Reaction Status Date / Time adhesive tape Allergy Hives Verified 08/25/16 10:06 All Systems Review: The remainder of the systems were reviewed and are negative Exam General: Present: Conversant, No Apparent Distress HEENT: Present: Atraumatic, Normocephaly Neck: Absent: JVD Cardiac: Present: Irregular Rhythm Lungs: Present: Normal Breath Sounds Neuro: Present: Alert and responsive, No focal deficits noted Abdomen: Present: Soft, Non-tender, Other (Obese abdomen) Vascular: Present: Pulse, normal, Other (Patient has obese lower extremities. Patient has edema both lower extremities. Her feet are warm. There is no signs of cellulitis. There are no right femoral bruits. The patient does have ecchymosis in the right groin region. There is no defined mass or pulsatile mass identified.) Skin: Present: No rashes noted on visualized skin Consult Discharge Plan - Plan Referrals: [facility],CARDIOLOG[facility] [Other] - 06/26/17 8:45 am (THIS IS FOR A FOLLOW UP FOR A CARDIOVERSION/WAS ALREADY SCHEDULED TO SEE DR. CLARK NESS.) Sherri Spence, LICENSED LOAN OFFICER [Advanced Practice Nurse] - 06/27/17 8:30 am (THIS IS THE LICENSED LOAN OFFICER AT [facility], HE HAD NOTHING AVAILABLE) Clark Ness MD [Partnered Physician] - 07/20/17 11:15 am ([facility])
--- NOTE | 2017-06-22 15:49 | Electrocardiograph Report ---
[address] [address] Test Date: 2017-06-20 Pat Name: Erica Merida Department: 110 Room: 01 Gender: F Electric Repair Supervisor: JARETT : 1950 Requested By: Jose Armando Ness Order Number: [id number] Reading MD: Alli Arcos Measurements Intervals [place] Rate: 78 P: 70 [place]: 192 QRS: 32 QRSD: 97 T: 34 QT: 367 QTc: 401 Interpretive Statements SINUS RHYTHM Electronically Signed On 06-22-2017 15:47:26 EDT by Alli Arcos
[2017-06-22] MEDS ORDERED: Perflutren Lipid Microsphere 1.3 ML in 0.9 % Sodium Chloride 8.7 ML IVP ONE (16:44)
[2017-06-22 16:59] LABS: INR 2.1; Prothrombin Time 23.1 Seconds (9.4-12.1)
[2017-06-22] MEDS: *HR* Warfarin 2.5 MG TABLET PO SCH (17:17)
[2017-06-22] MEDS: Melatonin 3 MG TABLET PO SCH (23:22)
[2017-06-23 05:03] LABS: Basophils % 0.2 %; Eosinophils # 0.1 K/mcL (0.0-0.6); Eosinophils % 1.2 %; Hematocrit 27.1 % (35.3-44.9); Hemoglobin 8.5 g/dL (11.5-15.4); Immature Granulocytes % 0.5 % (0-4); Lymphocytes # 1.2 K/mcL (0.6-4.6); Lymphocytes % 19.2 %; Mean Corpuscular HGB Conc 31.4 g/dL (31.6-35.5); Mean Corpuscular Hemoglobin 25.7 pg (28.0-33.3); Mean Corpuscular Volume 81.9 fL (83.0-100.0); Mean Platelet Volume 9.3 fL (9.4-12.4); Monocytes # 0.6 K/mcL (0.0-1.3); Monocytes % 8.7 %; Neutrophils # 4.5 K/mcL (1.6-8.9); Platelet Count 287 K/mcL (140-400); Red Blood Count 3.31 M/mcL (3.82-4.97); Red Cell Distribution Width 16.5 % (11.5-14.5); Segmented Neutrophils % 70.2 %
[2017-06-23 05:09] LABS: INR 1.9; Prothrombin Time 21.2 Seconds (9.4-12.1)
[2017-06-23 05:25] LABS: BUN/Creatinine Ratio 32 (6-26); Blood Urea Nitrogen 23 mg/dL (8-23); Calcium 8.4 mg/dL (8.6-10.3); Carbon Dioxide 28 mEq/L (23-29); Chloride 105 mEq/L (98-107); Glucose 151 mg/dL (70-105); Osmolality,Calculated 299 (280-300); Potassium 3.5 mEq/L (3.5-5.1); Sodium 141 mEq/L (136-145); eGFR For African Americans > 60 (> 60); eGFR For Non-African Americans > 60 (> 60)
[2017-06-23] MEDS: Sennosides/Docusate Sodium TABLET PO PRN (08:46)
[2017-06-23] MEDS: PSYLLIUM FIBER PO SCH (08:46)
[2017-06-23] MEDS: Aspirin 81 MG TAB.CHEW PO SCH (08:46)
[2017-06-23] MEDS: Furosemide 40 MG/4 ML VIAL IVP SCH ×2 (08:46→20:05)
[2017-06-23] MEDS: (Cinnamon Bark [Cinnamon] 1,000 MG) PO SCH (08:47)
[2017-06-23] MEDS ORDERED: Diltiazem CD (24hr) 300 MG CAPSULE PO SCH (09:00)
[2017-06-23] MEDS ORDERED: Diltiazem CD (24hr) 240 MG CAPSULE PO SCH (09:00)
--- NOTE | 2017-06-23 09:46 | Cardiology Progress Note ---
Date of Encounter: 06/23/17 Time of Encounter: 09:44 Assessment and Plan (1) XIN (acute kidney injury) Current Visit: Yes Status: Acute Resolved. (2) Anemia Current Visit: Yes Status: Acute Blood loss anemia related to procedure. Hemoglobin stable today compared to yesterday. Continue to monitor. Qualifiers: Anemia type: other cause Other causes of anemia: other cause, not classified Qualified Code(s): D64.89 - Other specified anemias (3) Fluid overload Current Visit: Yes Status: Acute Volume overload, right greater than left lower extremity. Recommend Lasix 40 mg IV twice a day. Elevate legs. Qualifiers: Hypervolemia type: other Qualified Code(s): E87.79 - Other fluid overload (4) Hematoma of right thigh Current Visit: Yes Status: Acute Hematoma of right thigh. Acute thrombosis of right greater saphenous vein. No deep venous thrombosis. No evidence of pseudoaneurysm on arterial study. Recommend warm compresses. Left femoral site with excoriation noted today. Daily sterile dressing changes ordered. Qualifiers: Encounter type: initial encounter Qualified Code(s): S70.11XA - Contusion of right thigh, initial encounter (5) Status post cryoablation Current Visit: Yes Status: Acute S/P cryoablation 06/18/17 for A-Fib. Currently atrial fibrillation with RVR. Post procedure she developed a right groin hematoma confirmed on CT scan. Hgb dropped as low as 6.8 and she required blood transfuson with 2 PRBC. Per EP, unable to stop Coumadin given high CVA risk s/p cryoablation. Developed XIN secondary to hypotension post cryoablation, now resolved. (6) Atrial fibrillation with RVR Current Visit: No Status: Acute Since procedure, atrial fibrillation has returned. Remains RVR. Recommend 10 mg IV Cardizem bolus, increase by mouth Cardizem to 360 mg daily. If blood pressure tolerates and RVR persists, we will consider addition of a beta brent. If unable to control heart rate, will need to consider synchronized electrilcal cardioversion. Discussion w patient/family: The assessment and plan as outlined above was discussed with the patient and/or family members who expressed understanding and agreement. All questions were answered. Thank you for involving us in the care of your patient. Please call with any questions. Subjective Principal diagnosis: PAF s/p cryoablation Interval history: Patient seen and examined earlier this morning. No new events overnight. Appreciate vascular surgery input. Patient reports pain in the thigh, otherwise no new complaints. Venous ultrasound demonstrates superficial vein thrombosis. Arterial ultrasound, no pseudoaneurysm. Significant right lower extremity edema remains, mild left lower extremity edema. Heart rate remains tachycardic, 100s to 130s. Creatinine remained stable. Objective Vital Signs, Last 4 Hours Temp Pulse Resp BP Pulse Ox 06/23/17 07:00 98.1 F 115 16 114/88 92 General: Conversant, No Apparent Distress HEENT: Atraumatic, Normocephaly, Mucus Membranes Moist Neck: No JVD Cardiac: Other (Irregular rate and rhythm.) Lungs: Normal Breath Sounds Neuro: Alert and responsive, No focal deficits noted Abdomen: Soft, Non-Tender Musculoskeletal: No Chest Wall Tenderness Extremities: Other (Hematoma, right groin and thigh. Moderate right lower extremity edema. Mild left lower extremity edema.) Results 06/23/17 04:00 06/23/17 04:00 Lab Results 06/22/17 06/23/17 06/23/17 16:35 04:00 04:00 WBC 6.5 Hgb 8.5 L Hct 27.1 L Plt Count 287 INR 2.1 Sodium 141 Potassium 3.5 Chloride 105 Carbon Dioxide 28 BUN 23 Creatinine 0.71 Glucose 151 H Calcium 8.4 L 06/23/17 04:00 WBC Hgb Hct Plt Count INR 1.9 Sodium Potassium Chloride Carbon Dioxide BUN Creatinine Glucose Calcium - VTE Reasons for not Prescribing Prophylaxis: Not indicated-Anticoagulated or INR therapeutic Consult Discharge Plan - Plan Referrals: [facility] [Other] - 06/26/17 8:45 am (THIS IS FOR A FOLLOW UP FOR A CARDIOVERSION/WAS ALREADY SCHEDULED TO SEE DR. CLARK NESS.) Sherri Spence CNP [Advanced Practice Nurse] - 06/27/17 8:30 am (THIS IS THE FAMILY AND CONSUMER SCIENCES PROFESSOR AT [facility], HE HAD NOTHING AVAILABLE) Clark Ness MD [Partnered Physician] - 07/20/17 11:15 am ([place]OABLATION)
--- NOTE | 2017-06-23 10:43 | Vascular/Endovas Progress Note ---
Date of Encounter: 06/23/17 Time of Encounter: 10:40 - Assessment and plan (1) Hematoma of right thigh Current Visit: Yes Status: Acute The patient is stable without signs of bleeding or further complications from right groin hematoma. I believe no further intervention will be necessary at this time. Patient is on fluid restriction and diuretic therapy to help control her lower extremity edema. I have asked the patient to keep her legs elevated while sitting. I will sign off the case for now. Please let me know if I can be of any further assistance. Qualifiers: Encounter type: initial encounter Qualified Code(s): S70.11XA - Contusion of right thigh, initial encounter - Subjective Interval history: The patient has no new complaints. Patient feels the left lower extremity may be mildly improved. The right lower extremity swelling is judged to be unchanged. I have reviewed the imaging studies of the right lower extremity from yesterday. There are no findings of pseudoaneurysm. The patient does have a hematoma which is documented earlier on CT scanning. This does not appear to be expanding. Hemoglobin has remained stable. Hemodynamically the patient has remained stable. Vital Signs, Last 4 Hours Temp Pulse Resp BP Pulse Ox 06/23/17 10:33 132 109/88 06/23/17 09:00 118 06/23/17 07:00 98.1 F 115 16 114/88 92 - Physical Examination General: Present: Conversant, No Apparent Distress, Well developed, Well nourished HEENT: Present: Atraumatic Vascular: Present: Normal capillary refill, Edema (Marked bilateral lower extremity edema that is 4+ pitting greater on the right side than on the left. Right lower extremity is significantly larger than the left. Patient has ecchymosis on the right thigh and groin area. This area pulsatile. It is nontender. It is stable compared to my examination from yesterday.) - VTE Reasons for not Prescribing Prophylaxis: Not indicated-Anticoagulated or INR therapeutic Results 06/23/17 04:00 06/23/17 04:00 Lab Results, Last 24 hours 06/22/17 06/23/17 06/23/17 16:35 04:00 04:00 WBC 6.5 Hgb 8.5 L Hct 27.1 L Plt Count 287 INR 2.1 Sodium 141 Potassium 3.5 Chloride 105 Carbon Dioxide 28 BUN 23 Creatinine 0.71 Glucose 151 H Calcium 8.4 L 04/21/18 04:00 WBC Hgb Hct Plt Count INR 1.9 Sodium Potassium Chloride Carbon Dioxide BUN Creatinine Glucose Calcium Consult Discharge Plan - Plan Referrals: [facility] [Other] - 06/26/17 8:45 am (THIS IS FOR A FOLLOW UP FOR A CARDIOVERSION/WAS ALREADY SCHEDULED TO SEE DR. CLARK NESS.) Sherri Spence, MACHINE WELDER [Advanced Practice Nurse] - 06/27/17 8:30 am (THIS IS THE MACHINE WELDER AT [facility], HE HAD NOTHING AVAILABLE) Clark Ness MD [Partnered Physician] - 07/20/17 11:15 am (CRYOABLATION)
[2017-06-23] MEDS: *HR* Warfarin 2.5 MG TABLET PO SCH (17:46)
[2017-06-23] MEDS: FLUTICASONE FUROATE 200 MCG IH SCH (19:51)
[2017-06-23] MEDS: Melatonin 3 MG TABLET PO SCH (23:06)
[2017-06-24 03:32] LABS: Basophils % 0.2 %; Eosinophils # 0.1 K/mcL (0.0-0.6); Eosinophils % 1.4 %; Hematocrit 27.7 % (35.3-44.9); Hemoglobin 8.7 g/dL (11.5-15.4); Immature Granulocytes % 0.5 % (0-4); Lymphocytes # 1.6 K/mcL (0.6-4.6); Lymphocytes % 18.5 %; Mean Corpuscular HGB Conc 31.4 g/dL (31.6-35.5); Mean Corpuscular Volume 82.9 fL (83.0-100.0); Mean Platelet Volume 9.4 fL (9.4-12.4); Monocytes # 0.7 K/mcL (0.0-1.3); Monocytes % 8.7 %; Neutrophils # 5.9 K/mcL (1.6-8.9); Platelet Count 294 K/mcL (140-400); Red Blood Count 3.34 M/mcL (3.82-4.97); Red Cell Distribution Width 16.6 % (11.5-14.5); Segmented Neutrophils % 70.7 %
[2017-06-24 03:38] LABS: Prothrombin Time 21.6 Seconds (9.4-12.1)
[2017-06-24 03:53] LABS: BUN/Creatinine Ratio 28 (6-26); Blood Urea Nitrogen 27 mg/dL (8-23); Calcium 8.3 mg/dL (8.6-10.3); Carbon Dioxide 31 mEq/L (23-29); Chloride 105 mEq/L (98-107); Glucose 128 mg/dL (70-105); Osmolality,Calculated 299 (280-300); Potassium 4.3 mEq/L (3.5-5.1); Sodium 141 mEq/L (136-145); eGFR For African Americans > 60 (> 60); eGFR For Non-African Americans 59 (> 60)
[2017-06-24] MEDS: PSYLLIUM FIBER PO SCH (08:06)
[2017-06-24] MEDS: Furosemide 40 MG/4 ML VIAL IVP SCH (08:06)
[2017-06-24] MEDS: Aspirin 81 MG TAB.CHEW PO SCH (08:07)
[2017-06-24] MEDS: (Cinnamon Bark [Cinnamon] 1,000 MG) PO SCH (08:07)
[2017-06-24] MEDS: Diltiazem CD (24hr) 180 MG CAPSULE PO SCH (08:07)
--- NOTE | 2017-06-24 10:30 | Cardiology Progress Note ---
Date of Encounter: 06/24/17 Time of Encounter: 10:28 Assessment and Plan (1) XIN (acute kidney injury) Current Visit: Yes Status: Acute Resolved. (2) Anemia Current Visit: Yes Status: Acute Blood loss anemia related to procedure. Hemoglobin stable last 48 hours. Qualifiers: Anemia type: other cause Other causes of anemia: other cause, not classified Qualified Code(s): D64.89 - Other specified anemias (3) Fluid overload Current Visit: Yes Status: Acute Volume overload, right greater than left lower extremity. Net -1500 mL. Continue IV diuresis as tolerated. Monitor creatinine, daily weights, strict I's and O's. Qualifiers: Hypervolemia type: other Qualified Code(s): E87.79 - Other fluid overload (4) Hematoma of right thigh Current Visit: Yes Status: Acute Hematoma of right thigh. Acute thrombosis of right greater saphenous vein. No deep venous thrombosis. No evidence of pseudoaneurysm on arterial study. Recommend warm compresses. Qualifiers: Encounter type: initial encounter Qualified Code(s): S70.11XA - Contusion of right thigh, initial encounter (5) Status post cryoablation Current Visit: Yes Status: Acute S/P cryoablation 06/18/17 for A-Fib. Currently atrial fibrillation with RVR. Post procedure she developed a right groin hematoma confirmed on CT scan. Initially, anemia requiring transfusion, hemoglobin stable last few days. Per EP, unable to stop Coumadin given high CVA risk s/p cryoablation. Developed XIN secondary to hypotension post cryoablation, now resolved. Currently a half with RVR. We will maximize Cardizem and add beta brent. If persistent tachycardia, may need to consider cardioversion prior to discharge. (6) Atrial fibrillation with RVR Current Visit: No Status: Acute See comments under cryoablation. Discussion w patient/family: The assessment and plan as outlined above was discussed with the patient and/or family members who expressed understanding and agreement. All questions were answered. Thank you for involving us in the care of your patient. Please call with any questions. Subjective Principal diagnosis: PAF s/p cryoablation Interval history: No new events overnight. Soreness of the thigh remains. Persistent tachycardia noted. No chest pain or discomfort. TTE reviewed, normal LV function, no pericardial effusion. Objective Vital Signs, Last 4 Hours Temp Pulse Resp BP Pulse Ox 06/24/17 07:30 99 F 111 18 122/76 94 General: Conversant, No Apparent Distress HEENT: Atraumatic, Normocephaly, Mucus Membranes Moist Neck: No JVD Cardiac: Normal S1 and S2, No Murmur, Other (Irregular rate and rhythm.) Lungs: Normal Breath Sounds, No Wheeze, Rales, Rhonchi Neuro: Alert and responsive, No focal deficits noted Abdomen: Soft Skin: No rashes noted on visualized skin Musculoskeletal: No Chest Wall Tenderness Extremities: No Clubbing, No Cyanosis, Other (Moderate right lower extremity edema. Mild left lower extremity edema. Ecchymosis noted right thigh/groin.) Results 06/24/17 03:05 06/24/17 03:05 Lab Results 06/24/17 06/24/17 06/24/17 03:05 03:05 03:05 WBC 8.4 Hgb 8.7 L Hct 27.7 L Plt Count 294 INR 2.0 Sodium 141 Potassium 4.3 Chloride 105 Carbon Dioxide 31 H BUN 27 H Creatinine 0.95 Glucose 128 H Calcium 8.3 L - VTE Reasons for not Prescribing Prophylaxis: Not indicated-Anticoagulated or INR therapeutic Consult Discharge Plan - Plan Referrals: [facility] [Other] - 06/26/17 8:45 am (THIS IS FOR A FOLLOW UP FOR A CARDIOVERSION/WAS ALREADY SCHEDULED TO SEE DR. CLARK NESS.) Sherri Spence BALL RACKER [Advanced Practice Nurse] - 06/27/17 8:30 am (THIS IS THE BALL RACKER AT [facility], HE HAD NOTHING AVAILABLE) Clark Ness MD [Partnered Physician] - 07/20/17 11:15 am (CRYOABLATION)
[2017-06-24] MEDS ORDERED: *HR* Metoprolol 5 MG/5 ML VIAL IVP ONE (10:32)
[2017-06-24] MEDS: Metoprolol XL (24 HR) Succ 25 MG TAB.ER.24H PO SCH (11:32)
[2017-06-24] MEDS: FLUTICASONE FUROATE 200 MCG IH SCH (11:33)
[2017-06-24] MEDS: *HR* Warfarin 2.5 MG TABLET PO SCH (17:08)
[2017-06-24] MEDS ORDERED: Furosemide 80 MG in 0.9 % Sodium Chloride 50 ML IVPB ONE (18:57)
[2017-06-24] MEDS: Melatonin 3 MG TABLET PO SCH (23:34)
[2017-06-25] MEDS: Diltiazem CD (24hr) 180 MG CAPSULE PO SCH (08:06)
[2017-06-25] MEDS: Metoprolol XL (24 HR) Succ 25 MG TAB.ER.24H PO SCH (08:06)
[2017-06-25] MEDS: Aspirin 81 MG TAB.CHEW PO SCH (08:07)
[2017-06-25] MEDS: (Cinnamon Bark [Cinnamon] 1,000 MG) PO SCH (08:09)
[2017-06-25] MEDS: PSYLLIUM FIBER PO SCH (08:09)
[2017-06-25] MEDS ORDERED: Furosemide 40 MG/4 ML VIAL IVP SCH (09:00)
--- NOTE | 2017-06-25 10:17 | Discharge Summary ---
Date of Encounter: 06/25/17 Time of Encounter: 09:00 - Discharge Diagnosis (1) Atrial fibrillation Priority: Primary Status: Chronic Comments: s/p cryo ablation on 06/18 Qualifiers: Atrial fibrillation type: paroxysmal Qualified Code(s): I48.0 - Paroxysmal atrial fibrillation (2) XIN (acute kidney injury) Priority: Secondary Status: Resolved Comments: Secondary to hypotension, anemia. Resolved. (3) Anemia Priority: Secondary Status: Chronic Comments: s/p complication from procedure, right leg hematoma. s/p 2 units PRBC. H/H remains stable. Hemodynamically stable. Vascular surgery consulted, appreciate recommendations. No intervention necessary. Qualifiers: Anemia type: other cause Other causes of anemia: other cause, not classified Qualified Code(s): D64.89 - Other specified anemias (4) Hematoma of right thigh Priority: Secondary Status: Acute Qualifiers: Encounter type: initial encounter Qualified Code(s): S70.11XA - Contusion of right thigh, initial encounter - Hospital Course Hospital course: Ms. Merida is a 66 year old female who presented for cyro ablation on 06/18 for symptomatic PAF. Unfortunately developed hypotension during at induction of anesthesia and also s/p procedure due to bleeding at right groin access site, developed acute blood loss anemia and hypotension. Developed subsequent XIN ( now resolved) and also received x2 units PRBC. H/H has remained stable for 48+ hours. Vascular surgery was consulted for recommendations regarding hematoma, recommendations were to watch and monitor. She was diuresed with IV lasix due to volume overload from IVF and PRBC given hx of diastolic CHF. Coumadin was continued throughout given recent CVA. Blood pressures, HR (in afib HR 80s-90s) stable. Discussed with Dr. Ness, no need for DCCV prior to discharge, if remains in afib in the outpatient setting, may consider DCCV in 2-3 months. Ms. Merida is being prepped for discharge to home today in stable condition. She was advised to continue po lasix for 30 days , then take as PRN (as per home). Will obtain CBC, BMP on Sunday. All questions and concerns were addressed prior to discharge. The patient was discussed and reviewed with Dr. Clark Ness who agrees with plan as stated above. - Time Spent with Patient Total time spent providing and/or coordinating discharge services: 45 minutes Greater than 30 minutes Specific discharge activities: No heavy lifting x1 week. Keep legs elevated while sitting. - Discharge Medications Prescriptions: Diltiazem CD (24hr) [Cardizem CD] 360 mg PO DAILY #30 cap.er.24h Metoprolol XL (24 HR) Succ [Toprol Xl] 25 mg PO DAILY #30 tab.er.24h Home Medications: Aspirin 81 mg PO DAILY 11/10/14 [History] Cinnamon Bark [Cinnamon] 1,000 mg PO DAILY 10/15/15 [History] Psyllium Husk [Daily Fiber] 2 tab PO DAILY 10/15/15 [History] Omeprazole [PriLOSEC] 20 mg PO DAILY 11/29/15 [History] Acetaminophen [Tylenol] 500 mg PO Q6HR PRN 08/25/16 [History] Calcium Carbonate [Calcium] 500 mg PO DAILY 05/28/17 [History] Fluticasone Furoate [Arnuity Ellipta] 200 mcg IH DAILY 05/28/17 [History] Melatonin 5 mg PO HS 05/28/17 [History] Warfarin [Coumadin] 2.5 mg PO SUMOTUWEFRSA 06/19/17 [History] Diltiazem CD (24hr) [Cardizem CD] 360 mg PO DAILY #30 cap.er.24h 06/25/17 [Rx] Furosemide [Lasix] 40 mg PO DAILY #10 06/25/17 [Rx] Metoprolol XL (24 HR) Succ [Toprol Xl] 25 mg PO DAILY #30 tab.er.24h 06/25/17 [ Rx] Patient Taking Own Medication 2 each PO DAILY each 06/25/17 [Rx] Warfarin [Coumadin] 2.5 mg PO 1800 tablet 06/25/17 [Rx] Allergies/Adverse Reactions: 3 Allergy/AdvReac Type Severity Reaction Status Date / Time adhesive tape Allergy Hives Verified 08/25/16 10:06 Date of admission: 06/21/17 10:21 Primary care physician: Victorino Donovan Consults: 06/22/17 12:56 Consult to Vascular Surgery [CONS] Routine Consulting Provider: V[facility] Reason for Consult: Hematoma Call Completed: Yes Discharging clinician: Cindi Shane Anticipated date of discharge: 06/25/17 Physical Examination Vital Signs, Last 4 Hours Temp Pulse Resp BP Pulse Ox 06/25/17 08:10 98.7 F 85 18 121/70 93 06/25/17 07:14 98.7 F 85 18 121/70 93 General: Conversant HEENT: Atraumatic, Normocephaly Cardiac: Other (irregularly irregular) Lungs: Normal Breath Sounds Neuro: Alert and responsive Abdomen: Soft Extremities: Normal Pulses, Other (mild, +1-2 LE edema. Large hematoma at right upper leg/thigh. ) - Patient Status Disposition: Home, Self-Care Condition: Good Functional capacity at discharge: independent ambulation Overall status at discharge: patient is progressing back to baseline - Ambulatory Orders Ambulatory Orders: Basic Metabolic Panel [CHEM] Time Frame: 5 Days, Facility: [facility], Location: Lab Complete Blood Count [HEME] Time Frame: 5 Days, Facility: [facility], Location: Lab - Discharge Instructions Follow Up With: [facility] [Other] - 06/26/17 8:45 am (THIS IS FOR A FOLLOW UP FOR A CARDIOVERSION/WAS ALREADY SCHEDULED TO SEE DR. CLARK NESS.) Sherri Spence [employer] [Advanced Practice Nurse] - 06/27/17 8:30 am (THIS IS THE [employer] OPER[employer] AT [facility], HE HAD NOTHING AVAILABLE) Clark Ness MD [Partnered Physician] - 07/20/17 11:15 am ([facility]YOABLATION) - Diet and Activity Activity: increase activity as tolerated, return to work once cleared by your PCP/specialist Diet: low fat, low cholesterol, low salt diet - VTE Reasons for not Prescribing Prophylaxis: Not indicated-Anticoagulated or INR therapeutic
[2017-06-25] MEDS: FLUTICASONE FUROATE 200 MCG IH SCH (10:29)
[2017-06-25 11:04] VITALS: BP 109/67
== END 2017-06-25 12:45 | disposition home or self-care (01) | DRG 271 ==
LOC: 2NNU 07:09 → INVDIALAB 07:09 → 2NNU 13:04
PROVIDERS: ADMIT Internal Medicine Clinical Cardiac Electrophysiology; ATTEND Internal Medicine Clinical Cardiac Electrophysiology

== ENCOUNTER 2017-12-24 17:08 | Inpatient (IN) ==
[2017-12-24] MEDS ORDERED: Ipratropium/Albuterol Neb 3 ML IH ONE ×2 (17:15→17:56)
--- NOTE | 2017-12-24 17:17 | Emergency Department Note ---
Disposition Clinical Impression: Shortness of breath CHF exacerbation Qualifiers: Heart failure type: unspecified Qualified Code(s): I50.9 - Heart failure, unspecified Disposition: Admitted As Inpatient Condition: Good Instructions: Dyspnea (ED) Reasons to Return/Additional Instructions: Please follow up with your primary care provider in 3-5 days . I have provided information to the [facility]. Please return to the emergency department if you have any worsening of your symptoms including worsening of your shortness of breath, fever, chills, chest pain, changes in mentation or any other symptoms that may be concerning to you. Referrals: [facility] [Outside] Forms: ED Satisfaction Letter Time of Disposition: 19:44 General Adult HPI - General Chief complaint: ED Shortness of Breath/Dyspnea Stated complaint: JOLLY Time Seen by Provider: 12/24/17 17:15 Source: patient Mode of arrival: ambulatory Limitations: no limitations Nursing Notes Reviewed: Yes Vital Signs Reviewed: Yes - History of Present Illness HPI Narrative: Patient is a 59-year-old female that presents emergency department with increased shortness of breath. Patient states that she had been diagnosed with pneumonia by her primary care provider and finished her antibiotics of Levaquin approximately one week ago. Patient states that her breathing has progressively gotten worse. Patient denies it being acute in onset. Patient denies any active chest pain. Patient does state that she has had a cough. Patient states that she has been using her inhalers with minimal relief. Patient denies any active chest pain. - Related Data Home Medications Medication Instructions Recorded Confirmed Aspirin 81 mg PO DAILY 11/10/14 12/10/17 Cinnamon Bark [Cinnamon] 1,000 mg PO DAILY 10/15/15 12/10/17 Psyllium Husk [Daily Fiber] 2 tab PO DAILY 10/15/15 12/10/17 Omeprazole [PriLOSEC] 20 mg PO DAILY 11/29/15 12/10/17 Acetaminophen [Tylenol] 500 mg PO Q6HR PRN 08/25/16 12/10/17 Calcium Carbonate [Calcium] 600 mg PO DAILY 05/28/17 12/10/17 Fluticasone Furoate [Arnuity 200 mcg IH DAILY 05/28/17 12/10/17 Ellipta] Melatonin 5 mg PO HS 05/28/17 12/10/17 Albuterol Sulfate [Albuterol 1 puff IH Q4H PRN 07/26/17 12/10/17 Inhaler] Furosemide [Lasix] 40 mg PO DAILY PRN 07/26/17 12/10/17 Ferrous Sulfate [High Potency Iron] 27 mg PO DAILY 12/10/17 12/10/17 Rosuvastatin [Crestor] 10 mg PO HS 12/10/17 12/10/17 Warfarin [Coumadin] 2.5 mg PO SUMOTUTHFRSA 12/24/17 12/24/17 Previous Rx's Medication Instructions Recorded Diltiazem CD (24hr) [Cardizem CD] 360 mg PO DAILY #30 cap.er.24h 06/25/17 Metoprolol XL (24 HR) Succ [Toprol 25 mg PO DAILY #30 tab.er.24h 06/25/17 Xl] Allergies Allergy/AdvReac Type Severity Reaction Status Date / Time adhesive tape Allergy Hives Verified 12/10/17 12:06 All systems ED: reviewed and negative except as stated. 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 Decreased breath sounds bilaterally.) - Cardiovascular Cardiovascular exam: Present: regular rate, normal rhythm, normal heart sounds, +S1, +S2 - Abdominal Exam Abdominal exam: Present: soft, Non-Tender, normal bowel sounds - Neurological Exam Neurological exam: Present: alert, oriented X3 - Psychiatric Psychiatric exam: Present: normal affect, normal mood - Skin Skin exam: Present: warm, dry, intact Course - Reevaluation(s) Reevaluation #1: Patient states that her breathing is improved after 1 DuoNeb breathing treatment. He states that she is feeling somewhat better at this time. Patient's oxygen has been titrated down to 4 L. Time: 17:55 Vital Signs Temperature 98.6 F 12/24/17 17:18 Pulse Rate 75 12/24/17 17:18 Respiratory Rate 18 12/24/17 17:18 Blood Pressure 160/70 12/24/17 17:18 O2 Sat by Pulse Oximetry 95 12/24/17 17:18 Temperature 98.6 F 12/24/17 17:18 Pulse Rate 68 12/24/17 18:23 Respiratory Rate 18 12/24/17 18:24 Blood Pressure 135/57 12/24/17 18:23 O2 Sat by Pulse Oximetry 95 12/24/17 18:24 Oxygen Delivery Oxygen Delivery Nasal Cannula Medical Decision Making - [facility] Narrative Medical decision making narrative: Due to the patient's into the emergency department with increased shortness of breath and history of pneumonia and there is concern for possible pneumonia or exacerbation of her underlying asthma. Patient will be given a DuoNeb breathing treatment and basic laboratory tests including CBC, BMP, troponin chest x-ray and EKG will be obtained. Troponin is negative. Chest x-ray shows mild edema versus airway inflammation per radiology read. Patient will receive a repeat DuoNeb and steroids here in the emergency department. Patient will be road tested. The remainder of her laboratory testing is relatively unremarkable. The patient is able to tolerate road tested her oxygen saturation does not drop and is not requiring oxygen the patient will be discharged home. Patient's oxygen saturation upon ambulation dropped into the 80s. Patient will need to be admitted to the hospital for further evaluation and management. I called and spoke the admitting hospitalist Dr. trujillo and he is accepted the patient to their service. Patient be admitted to the hospital at this time. - Medical Records Medical records reviewed: Yes I reviewed the patient's medical records. - Lab Data Lab results reviewed: Yes I reviewed the patient's lab results. Result diagrams: 12/24/17 17:29 12/24/17 17:29 Lab Results 12/24/17 12/24/17 12/24/17 Range/Units 17:29 17:29 17:29 WBC 8.2 (4.3-11.1) K/mcL RBC 4.40 (3.82-4.97) M/mcL Hgb 12.1 (11.5-15.4) g/dL Hct 38.6 (35.3-44.9) % MCV 87.7 (83.0-100.0) fL MCH 27.5 L (28.0-33.3) pg MCHC 31.3 L (31.6-35.5) g/dL RDW 16.4 H (11.5-14.5) % Plt Count 317 (140-400) K/mcL MPV 9.0 L (9.4-12.4) fL Immature Gran % 0.5 (0-4) % Seg Neutrophils % 78.8 % Lymphocytes % 12.6 % Monocytes % 6.5 % Eosinophils % 1.1 % Basophils % 0.5 % Neutrophils # 6.4 (1.6-8.9) K/mcL Lymphocytes # 1.0 (0.6-4.6) K/mcL Monocytes # 0.5 (0.0-1.3) K/mcL Eosinophils # 0.1 (0.0-0.6) K/mcL Basophils # 0.0 (0.0-0.2) K/mcL PT (9.4-12.1) Seconds INR Sodium 141 (136-145) mEq/L Potassium 3.6 (3.5-5.1) mEq/L Chloride 107 (98-107) mEq/L Carbon Dioxide 25 (23-29) mEq/L BUN 21 (8-23) mg/dL Creatinine 1.04 (0.60-1.20) mg/dL Est GFR ( Amer) > 60 (> 60) Est GFR (Non-Af Amer) 53 L (> 60) BUN/Creatinine Ratio 20 (6-26) Glucose 153 H (70-105) mg/dL Calculated Osmolality 298 (280-300) Calcium 9.0 (8.6-10.3) mg/dL Troponin I < 0.03 (< 0.04) ng/mL B-Natriuretic Peptide 59 (Less than 100) pg/mL 12/24/17 Range/Units 17:29 WBC (4.3-11.1) K/mcL RBC (3.82-4.97) M/mcL Hgb (11.5-15.4) g/dL Hct (35.3-44.9) % MCV (83.0-100.0) fL MCH (28.0-33.3) pg MCHC (31.6-35.5) g/dL RDW (11.5-14.5) % Plt Count (140-400) K/mcL MPV (9.4-12.4) fL Immature Gran % (0-4) % Seg Neutrophils % % Lymphocytes % % Monocytes % % Eosinophils % % Basophils % % Neutrophils # (1.6-8.9) K/mcL Lymphocytes # (0.6-4.6) K/mcL Monocytes # (0.0-1.3) K/mcL Eosinophils # (0.0-0.6) K/mcL Basophils # (0.0-0.2) K/mcL PT 22.1 H (9.4-12.1) Seconds INR 2.0 Sodium (136-145) mEq/L Potassium (3.5-5.1) mEq/L Chloride (98-107) mEq/L Carbon Dioxide (23-29) mEq/L BUN (8-23) mg/dL Creatinine (0.60-1.20) mg/dL Est GFR ( Amer) (> 60) Est GFR (Non-Af Amer) (> 60) BUN/Creatinine Ratio (6-26) Glucose (70-105) mg/dL Calculated Osmolality (280-300) Calcium (8.6-10.3) mg/dL Troponin I (< 0.04) ng/mL B-Natriuretic Peptide (Less than 100) pg/mL - Radiology Data Radiology results reviewed: Yes I reviewed the patient's radiology results. Chest X-Ray 12/24/17 17:15 IMPRESSION: Mild edema versus airway inflammation. Basilar atelectasis. D/ / Fernando Vargas / Fernando Vargas Interpreting Provider: Fernando Vargas - EKG Data EKG #1 EKG attestation: Yes I reviewed and interpreted this EKG. EKG results narrative: EKG shows a sinus rhythm at 74 bpm, AR interval of 24, QRS duration 84, QTc of 450 with a normal axis. No evidence of STEMI on EKG.
--- NOTE | 2017-12-24 17:31 | Emergency Department Note ---
Disposition Clinical Impression: CHF (congestive heart failure) Qualifiers: Heart failure type: combined systolic and diastolic Heart failure chronicity: acute on chronic Qualified Code(s): I50.43 - Acute on chronic combined systolic (congestive) and diastolic (congestive) heart failure Disposition: Still a Patient Forms: ED Satisfaction Letter General Adult HPI - General Chief complaint: ED Shortness of Breath/Dyspnea Stated complaint: JOLLY Time Seen by Provider: 12/24/17 17:15 Source: patient Mode of arrival: ambulatory Limitations: no limitations - History of Present Illness HPI Narrative: Attestation note ED attending note I examined this patient and my medical decision-making was reviewed with the emergency medicine resident Dr. Joseph Quiñonez. I agree with the documented findings, disposition and treatment plan as described except to the extent set forth below. Briefly: 67-year-old female history of asthma presents with increasing shortness of breath some swelling of the feet bibasilar rales with expiratory wheezing right lower lobe breath sounds are decreased. Some sputum. Patient's chest x-ray EKG screening labs and a DuoNeb. Patient placed on oxygen. Disposition pending. Patient stable. Pain Scale: 2 - Related Data Home Medications Medication Instructions Recorded Confirmed Aspirin 81 mg PO DAILY 11/10/14 12/10/17 Cinnamon Bark [Cinnamon] 1,000 mg PO DAILY 10/15/15 12/10/17 Psyllium Husk [Daily Fiber] 2 tab PO DAILY 10/15/15 12/10/17 Omeprazole [PriLOSEC] 20 mg PO DAILY 11/29/15 12/10/17 Acetaminophen [Tylenol] 500 mg PO Q6HR PRN 08/25/16 12/10/17 Calcium Carbonate [Calcium] 600 mg PO DAILY 05/28/17 12/10/17 Fluticasone Furoate [Arnuity 200 mcg IH DAILY 05/28/17 12/10/17 Ellipta] Melatonin 5 mg PO HS 05/28/17 12/10/17 Albuterol Sulfate [Albuterol 1 puff IH Q4H PRN 07/26/17 12/10/17 Inhaler] Furosemide [Lasix] 40 mg PO DAILY PRN 07/26/17 12/10/17 Cefdinir [Omnicef] 300 mg PO BID 12/10/17 12/10/17 Ferrous Sulfate [High Potency Iron] 27 mg PO DAILY 12/10/17 12/10/17 Rosuvastatin [Crestor] 10 mg PO HS 12/10/17 12/10/17 Previous Rx's Medication Instructions Recorded Diltiazem CD (24hr) [Cardizem CD] 360 mg PO DAILY #30 cap.er.24h 06/25/17 Metoprolol XL (24 HR) Succ [Toprol 25 mg PO DAILY #30 tab.er.24h 06/25/17 Xl] Patient Taking Own Medication 2 each PO DAILY each 06/25/17 Warfarin [Coumadin] 2.5 mg PO 1800 tablet 06/25/17 Allergies Allergy/AdvReac Type Severity Reaction Status Date / Time adhesive tape Allergy Hives Verified 12/10/17 12:06 Cardiovascular: Denies: chest pain Respiratory: Reports: cough, dyspnea Past Medical History - Past Medical History Medical history: Reports: asthma, atrial fibrillation, cancer, hypertension Surgical history: Reports: breast surgery, cancer surgery, hysterectomy Psychiatric history: Reports: no psych history 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 - Social History Smoking Status: Never smoker Smokeless Tobacco Status: No Alcohol use: Reports: none Drug use: Reports: none Physical Exam - General Limitations: no limitations General appearance: alert, in distress Course Vital Signs Temperature 98.6 F 12/24/17 17:18 Pulse Rate 75 12/24/17 17:18 Respiratory Rate 18 12/24/17 17:18 Blood Pressure 160/70 12/24/17 17:18 O2 Sat by Pulse Oximetry 95 12/24/17 17:18 Temperature 98.6 F 12/24/17 17:18 Pulse Rate 75 12/24/17 17:18 Respiratory Rate 18 12/24/17 17:18 Blood Pressure 160/70 12/24/17 17:18 O2 Sat by Pulse Oximetry 95 12/24/17 17:18 Oxygen Delivery Oxygen Delivery Nasal Cannula
[2017-12-24 17:49] LABS: Basophils % 0.5 %; Eosinophils # 0.1 K/mcL (0.0-0.6); Eosinophils % 1.1 %; Hematocrit 38.6 % (35.3-44.9); Hemoglobin 12.1 g/dL (11.5-15.4); Immature Granulocytes % 0.5 % (0-4); Lymphocytes % 12.6 %; Mean Corpuscular HGB Conc 31.3 g/dL (31.6-35.5); Mean Corpuscular Hemoglobin 27.5 pg (28.0-33.3); Mean Corpuscular Volume 87.7 fL (83.0-100.0); Monocytes # 0.5 K/mcL (0.0-1.3); Monocytes % 6.5 %; Neutrophils # 6.4 K/mcL (1.6-8.9); Platelet Count 317 K/mcL (140-400); Red Cell Distribution Width 16.4 % (11.5-14.5); Segmented Neutrophils % 78.8 %
[2017-12-24] MEDS ORDERED: methylPREDNISolone 125 MG/2 ML VIAL IVP ONE (17:57)
[2017-12-24 18:00] LABS: Troponin I < 0.03 ng/mL (< 0.04)
[2017-12-24 18:05] LABS: BUN/Creatinine Ratio 20 (6-26); Blood Urea Nitrogen 21 mg/dL (8-23); Carbon Dioxide 25 mEq/L (23-29); Chloride 107 mEq/L (98-107); Glucose 153 mg/dL (70-105); Osmolality,Calculated 298 (280-300); Potassium 3.6 mEq/L (3.5-5.1); Sodium 141 mEq/L (136-145); eGFR For Non-African Americans 53 (> 60)
[2017-12-24 18:13] LABS: Prothrombin Time 22.1 Seconds (9.4-12.1)
[2017-12-24] MEDS ORDERED: Furosemide 40 MG/4 ML VIAL IVP ONE (19:36)
[2017-12-24] MEDS ORDERED: Nitroglycerin 0.4 MG TAB.SUBL SL STA (19:37)
--- NOTE | 2017-12-24 20:33 | Internal Med History&Physical ---
Addendum entered and electronically signed by Nita Sapp 12/29/17 23:32: Addendum entered and electronically signed by Edis Talamantes MD 12/25/17 08: 31: I saw and evaluated the patient. I reviewed the residents note, performed my own physical examination and agree with findings and plan as documented in the residents note. Patient seen and examined on 12/25/17. Patient presented with acute hypoxic respiratory failure. Recently treated with antibiotics for a suspected pneumonia out patient.She states that she has had this in the past, patient denies smoking, but she responded well to breathing treatments, will continue these. Could be COPD/asthma picture. Patient also has history of atrial fibrillation, on coumadin with rate controlled on diltiazem and metoprolol. Will continue to monitor. Original Note: Date of Encounter: 12/24/17 Time of Encounter: 20:33 Internal Medicine - H&P: HPI Chief complaint: Shortness of breath Admitted From: Emergency Dept Plans for Post Hospital Care: Home History of present illness: Ms. Merida is a 67 year old female with a history of asthma, atrial fibrillation s/p ablation in June 2017, hypertension, and breast cancer. She presented to the ED due to worsening shortness of breath that initially began several months ago. At that time, she attributed her SOB to allergies; however, she was diagnosed with pneumonia early this month, which was treated with a 10- day course of antibiotics. She recently completed a second antibiotic course of levaquin due to persistent SOB and productive cough. She states that she felt like she had more energy while taking antibiotics; however, she continued to have a cough throughout the course of her antibiotic therapy. She reports having been diagnosed with CHF once in the past; however, she states that this feels different, as she is not swollen this time. She says that her cough is productive of sputum that varies from clear to yellowish to bloody, with an increase in the amount of blood recently. She says that she "cannot catch her breath" and states that she feels like she's going to "pass out'. She has long- acting and rescue inhalers, and states that she has had to use her rescue inhaler more frequently. She reports subjective fevers/chills x 1 week. Her symptoms are inconsistently worsened with exertion. She denies orthopnea, though her symptoms are improved if she sits up in a chair during a bad coughing fit. Patient was admitted for further workup and management. Patient was seen and examined while in the ED. She does not appear to be in acute distress. She is not dyspneic while conversing. She does have wheezing present while coughing. ROS is significant for sinus pressure/drainage, sore throat, nausea, occasional vomiting due to cough, and some chest pain due to frequent coughing. She also reports some nocturnal urinary frequency, with voiding Q2-3 hours. She denies any dysuria. Past Med Surg Social Fam HX - Past Medical History Medical history: asthma, atrial fibrillation, cancer, hypertension Additional medical history: breast cx Psychiatric history: no psych history - Past Surgical History Surgical History: breast surgery, cancer surgery, hysterectomy Additional surgical history: cardiac ablation, L mastectomy - Social History Smoking Status: Never smoker Smokeless Tobacco Status: No Alcohol use: none Drug use: none - Family History Father Family Member Ethnicity: Non- Living Status: Hx Family Cardiac Disorders: Yes (hypertension) Hx Family Respiratory Disorders: No Hx Family Cancer: No Hx Family GI Disorders: No Hx Family Endocrine Disorder: Yes (diabetes) Hx Family Neuromuscular Disorders: No Hx Family Neurologic Disorders: No Hx Family HEENT Disorders: No Hx Family Autoimmune Disorders: No Mother Adopted: No Family Member Ethnicity: Non- Living Status: Still Living Hx Family Cardiac Disorders: Yes (Afib) Hx Family Respiratory Disorders: No Hx Family Cancer: Yes (Colon) Hx Family GI Disorders: Yes (Cancer) Hx Family Endocrine Disorder: Yes Hx Family Neuromuscular Disorders: Yes (Stroke 2016) Hx Family Neurologic Disorders: No Hx Family HEENT Disorders: No Hx Family Autoimmune Disorders: No Internal Medicine - H&P: Meds Aspirin 81 mg PO DAILY 11/10/14 [History] Cinnamon Bark [Cinnamon] 1,000 mg PO DAILY 10/15/15 [History] Psyllium Husk [Daily Fiber] 2 tab PO DAILY 10/15/15 [History] Omeprazole [PriLOSEC] 20 mg PO DAILY 11/29/15 [History] Acetaminophen [Tylenol] 500 mg PO Q6HR PRN 08/25/16 [History] Calcium Carbonate [Calcium] 600 mg PO DAILY 05/28/17 [History] Fluticasone Furoate [Arnuity Ellipta] 200 mcg IH DAILY 05/28/17 [History] Melatonin 5 mg PO HS 05/28/17 [History] Diltiazem CD (24hr) [Cardizem CD] 360 mg PO DAILY #30 cap.er.24h 06/25/17 [Rx] Metoprolol XL (24 HR) Succ [Toprol Xl] 25 mg PO DAILY #30 tab.er.24h 06/25/17 [Rx] Albuterol Sulfate [Albuterol Inhaler] 1 puff IH Q4H PRN 07/26/17 [History] Furosemide [Lasix] 40 mg PO DAILY PRN 07/26/17 [History] Ferrous Sulfate [High Potency Iron] 27 mg PO DAILY 12/10/17 [History] Rosuvastatin [Crestor] 10 mg PO HS 12/10/17 [History] Warfarin [Coumadin] 2.5 mg PO SUMOTUTHFRSA 12/24/17 [History] Allergy/AdvReac Type Severity Reaction Status Date / Time adhesive tape Allergy Hives Verified 12/10/17 12:06 All Systems PM: A 10-system review of systems was performed and is negative for pertinent findings except as documented above in the HPI. - Constitutional Vitals: Temp Pulse Resp BP Pulse Ox 98.6 F 83 16 136/52 95 12/24/17 17:18 12/24/17 19:55 12/24/17 19:55 12/24/17 19:55 12/24/17 19:55 Exam: GENERAL: Pleasant female in no acute distress. She is alert and oriented. She answers questions appropriately and is cooperative with exam. HEENT: Atraumatic and normocephalic. Nasal canula in place. Moist mucosa. Erythema of posterior pharynx. Left tonsil is enlarged. Tenderness over bilateral maxillary sinuses. NECK: Tender submandibular lymphadenopathy greater on left. Trachea is midline with no thyromegaly appreciated. CARDIOVASCULAR: Regular rate and rhythm. S1 and S2 present. No murmurs, gallops or rubs. RESPIRATORY: CTA bilaterally. Intermittent wheezes present with cough. No accessory muscle use. GASTROINTESTINAL: Active bowel sounds present x 4 quadrants. Abdomen is soft, nondistended, and nontender. EXTREMITIES: Moderate bilateral edema present that is nonpitting and nontender. No clubbing or cyanosis. Internal Med - H&P Results - Labs CBC & Chem 7: 12/24/17 17:29 12/24/17 17:29 Labs: Short CBC 12/24/17 Range/Units 17:29 WBC 8.2 (4.3-11.1) K/mcL Hgb 12.1 (11.5-15.4) g/dL Hct 38.6 (35.3-44.9) % Plt Count 317 (140-400) K/mcL Neutrophils # 6.4 (1.6-8.9) K/mcL BMP 12/24/17 17:29 Sodium 141 Potassium 3.6 Chloride 107 Carbon Dioxide 25 BUN 21 Creatinine 1.04 Glucose 153 H Calcium 9.0 Cardiac Enzymes 12/24/17 Range/Units 17:29 Troponin I < 0.03 (< 0.04) ng/mL - Impressions ITS Impressions Chest X-Ray 12/24/17 17:15 IMPRESSION: Mild edema versus airway inflammation. Basilar atelectasis. D/ / Fernando Vargas / Fernando Vargas Interpreting Provider: Fernando Vargas - Assessment and plan (1) Acute respiratory failure with hypoxia Current Visit: Yes Status: Acute Assessment and plan: Unclear etiology, possibly secondary to acute COPD exacerbation or asthma exacerbation. Low suspicion for CHF exacerbation due to normal BNP. Add itionally, echocardiogram performed on 06/22/2017 demonstrated LVEF of 70% with normal LV chamber size, wall thickness, and function. CXR performed in the ED demonstrated mild edema versus airway inflammation and basilar atelectasis. Patient has recently completed a course of antibiotic therapy with levaquin for CAP. She received 125mg solumedrol while in the emergency department. - Duonebs 3mL Q4H PERFECTO - Albuterol neb Q2H PRN wheezing/SOB - Prednisone 40mg PO daily - Continuous pulse oximetry - Supplemental oxygen via nasal canula - patient would benefit from walk test for home oxygen qualification prior to discharge (2) Acute sinusitis Current Visit: Yes Status: Acute Assessment and plan: Patient reports sinus congestion and pressure that has been present for several months. She has tender left submandibular lymphadenopathy, and reports feeling subjectively feverish with occasional chills. - Start azithromycin 500mg IVPB x 3 days Qualifiers: Sinusitis location: maxillary Recurrence: not specified as recurrent Qu alified Code(s): J01.00 - Acute maxillary sinusitis, unspecified (3) Atrial fibrillation Current Visit: No Status: Chronic Assessment and plan: Patient underwent ablation in June of this year and had a loop recorder placed on 12/10/2017. She states that she has not had any incidents of atrial fibrillation since her ablation. On exam today, she is in normal sinus rhythm. - Continue home medication of diltiazem 360mg PO - Continue warfarin anticoagulation Qualifiers: Atrial fibrillation type: paroxysmal Qualified Code(s): I48.0 - Paroxysmal atrial fibrillation (4) HTN (hypertension) Current Visit: No Status: Chronic Assessment and plan: - Continue home medication of metoprolol 25mg PO QD Qualifiers: Hypertension type: essential hypertension Qualified Code(s): I10 - Esse ntial (primary) hypertension (5) DVT prophylaxis Current Visit: No Status: Acute Assessment and plan: - Continue coumadin therapy with pharmacy to dose to therapeutic INR - Time Spent With Patient Total time spent is greater than 50% in coordination of care (as documented) at patient's floor/unit and/or counseling patient:
[2017-12-24] MEDS ORDERED: Naloxone 0.4 MG/ML INJ IVP PRN (22:08)
[2017-12-24] MEDS ORDERED: Albuterol 2.5 MG/3 ML NEBULIZER IH PRN (22:12)
[2017-12-24] MEDS ORDERED: NON-FORMULARY MEDICATION 1 EACH EACH (Melatonin [Melatonin] 5 MG) PO SCH (22:15)
[2017-12-24] MEDS ORDERED: Azithromycin 500 MG in D5% in Water 250 ML IVPB SCH (23:00)
[2017-12-24] MEDS ORDERED: Melatonin 3 MG TABLET PO SCH (23:15)
[2017-12-24] MEDS: Melatonin 3 MG TABLET PO SCH (23:35)
[2017-12-25] MEDS: Ipratropium/Albuterol Neb 3 ML IH SCH ×7 (03:51→23:48)
[2017-12-25 03:55] LABS: Basophils % 0.1 %; Hematocrit 34.5 % (35.3-44.9); Hemoglobin 10.9 g/dL (11.5-15.4); Immature Granulocytes % 0.5 % (0-4); Lymphocytes # 0.4 K/mcL (0.6-4.6); Lymphocytes % 4.4 %; Mean Corpuscular HGB Conc 31.6 g/dL (31.6-35.5); Mean Corpuscular Hemoglobin 27.6 pg (28.0-33.3); Mean Corpuscular Volume 87.3 fL (83.0-100.0); Mean Platelet Volume 9.3 fL (9.4-12.4); Monocytes % 0.5 %; Neutrophils # 7.5 K/mcL (1.6-8.9); Platelet Count 265 K/mcL (140-400); Red Blood Count 3.95 M/mcL (3.82-4.97); Red Cell Distribution Width 16.2 % (11.5-14.5); Segmented Neutrophils % 94.5 %
[2017-12-25 04:01] LABS: Prothrombin Time 22.5 Seconds (9.4-12.1)
[2017-12-25 04:17] LABS: BUN/Creatinine Ratio 25 (6-26); Blood Urea Nitrogen 26 mg/dL (8-23); Carbon Dioxide 24 mEq/L (23-29); Chloride 104 mEq/L (98-107); Potassium 3.7 mEq/L (3.5-5.1); Sodium 137 mEq/L (136-145)
[2017-12-25 04:18] LABS: Glucose 241 mg/dL (70-105); Osmolality,Calculated 297 (280-300); eGFR For Non-African Americans 53 (> 60)
--- NOTE | 2017-12-25 08:00 | Internal Med Progress Note ---
Hospitalist Progress Note - Encounter Date of Encounter: 12/25/17 Time of Encounter: 08:00 - Exam Vitals: Temp Pulse Resp BP Pulse Ox 97.9 F 90 16 126/64 97 12/25/17 04:25 12/25/17 04:25 12/25/17 07:47 12/25/17 04:25 12/25/17 07:47 Exam: GENERAL: Pleasant female in no acute distress. She is alert and oriented. She answers questions appropriately and is cooperative with exam. HEENT: Atraumatic and normocephalic. Nasal canula in place. Moist mucosa. Erythema of posterior pharynx. Left tonsil is enlarged. Tenderness over bilateral maxillary sinuses. NECK: Tender submandibular lymphadenopathy greater on left. Trachea is midline with no thyromegaly appreciated. CARDIOVASCULAR: Regular rate and rhythm. S1 and S2 present. No murmurs, gallops or rubs. RESPIRATORY: CTA bilaterally. Intermittent wheezes present with cough. No accessory muscle use. GASTROINTESTINAL: Active bowel sounds present x 4 quadrants. Abdomen is soft, nondistended, and nontender. EXTREMITIES: Moderate bilateral edema present that is nonpitting and nontender. No clubbing or cyanosis. - Assessment and Plan (1) Acute respiratory failure with hypoxia Current Visit: Yes Status: Acute Assessment and Plan: Likely secondary to acute COPD exacerbation and asthma. Started onn IV steroids, duonebs and symbicort and antibiotics with cefepime. Monitor oxygen levels and wean off as tolerated. Obtain ABG and Ct angio chest to r/o PE (2) HTN (hypertension) Current Visit: No Status: Chronic Assessment and Plan: - Continue home medication of metoprolol 25mg PO QD (3) Atrial fibrillation Current Visit: No Status: Chronic Assessment and Plan: Patient underwent ablation in June of this year and had a loop recorder placed on 12/10/2017. She states that she has not had any incidents of atrial fibrillation since her ablation. On exam today, she is in normal sinus rhythm. - Continue home medication of diltiazem 360mg and warfarin (4) Acute sinusitis Current Visit: Yes Status: Acute Assessment and Plan: Patient reports sinus congestion and pressure that has been present for several months. She has tender left submandibular lymphadenopathy, and reports feeling subjectively feverish with occasional chills. - On cefepime (5) DVT prophylaxis Current Visit: No Status: Acute Assessment and Plan: - Continue coumadin therapy with pharmacy to dose to therapeutic INR - Time Spent with Patient Total time spent is greater than 50% in coordination of care (as documented) at patient's floor/unit and/or counseling patient: Internal Medicine: Result - Labs CBC & Chem 7: 12/25/17 03:07 12/25/17 03:07 Labs: Short CBC 12/24/17 12/25/17 Range/Units 17:29 03:07 WBC 8.2 7.9 (4.3-11.1) K/mcL Hgb 12.1 10.9 L (11.5-15.4) g/dL Hct 38.6 34.5 L (35.3-44.9) % Plt Count 317 265 (140-400) K/mcL Neutrophils # 6.4 7.5 (1.6-8.9) K/mcL BMP 12/24/17 12/25/17 17:29 03:07 Sodium 141 137 Potassium 3.6 3.7 Chloride 107 104 Carbon Dioxide 25 24 BUN 21 26 H Creatinine 1.04 1.03 Glucose 153 H 241 H Calcium 9.0 9.0 Cardiac Enzymes 12/24/17 Range/Units 17:29 Troponin I < 0.03 (< 0.04) ng/mL - ABG Interpretation ABG results: PT/INR, D-dimer PT 22.5 Seconds (9.4-12.1) H 12/25/17 03:07 - Impressions Impressions Chest X-Ray 12/24/17 17:15 IMPRESSION: Mild edema versus airway inflammation. Basilar atelectasis. D/ / Fernando Vargas / Fernando Vargas Interpreting Provider: Fernando Vargas Consult Discharge Plan - Plan Referrals: Aleksandar Strickland DO [Primary Care Provider] - 12/31/17 9:45 am (2) HTN (hypertension) Qualifiers: Hypertension type: essential hypertension Qualified Code(s): I10 - Essential (primary) hypertension (3) Atrial fibrillation Qualifiers: Atrial fibrillation type: paroxysmal Qualified Code(s): I48.0 - Paroxysmal atrial fibrillation (4) Acute sinusitis Qualifiers: Sinusitis location: maxillary Recurrence: not specified as recurrent Qualif ied Code(s): J01.00 - Acute maxillary sinusitis, unspecified
[2017-12-25] MEDS ORDERED: Levofloxacin 750 MG/150 ML 750 MG/150 ML BAG IVPB SCH (09:00)
[2017-12-25] MEDS ORDERED: predniSONE 20 MG TABLET PO SCH (09:00)
[2017-12-25] MEDS: Metoprolol XL (24 HR) Succ 25 MG TAB.ER.24H PO SCH (10:23)
[2017-12-25] MEDS: Aspirin 81 MG TAB.CHEW PO SCH (10:23)
[2017-12-25] MEDS: Diltiazem CD (24hr) 180 MG CAPSULE PO SCH (10:23)
[2017-12-25] MEDS: MethylPREDNISolone 40 MG/ML VIAL IVP SCH ×2 (10:49→16:22)
[2017-12-25] MEDS: Budesonide/Formoterol 160/4.5 1 PUFF INH IH SCH ×2 (11:18→20:01)
[2017-12-25] MEDS ORDERED: D5% in Water 1,000 ML IVC PRN (11:39)
[2017-12-25] MEDS ORDERED: Dextrose Gel 15 GM/37.5 ML TUBE PO PRN ×2 (11:39)
[2017-12-25] MEDS ORDERED: *HR* Dextrose 50 % in Water (Syg) 50 ML SYRINGE IVP PRN (11:39)
[2017-12-25] MEDS: Insulin LISPRO 300 UNITS/3 ML VIAL SQ SCH ×3 (13:13→21:20)
[2017-12-25] MEDS ORDERED: Isovue-370 500 ML INFUS..BTL IV ONE (15:39)
[2017-12-25 16:55] LABS: ABG Base Excess 4 mEq/L (-2 to 3); ABG HCO3 29 mEq/L (21-27); ABG Oxygen Saturation 96 % (95-98); ABG PCO2 43 mmHg (35-45); ABG PH 7.43 pH Units (7.32-7.45); ABG PO2 83 mmHg (85-104); ABG TCO2 30 mEq/L (20-26)
[2017-12-25] MEDS ORDERED: *HR* Warfarin 2 MG TABLET PO ONE (18:00)
[2017-12-25] MEDS ORDERED: Warfarin perPT PO SCH (18:00)
[2017-12-25 18:02] LABS: Adenovirus Not Detected (Not Detect); Bordetella Pertussis Not Detected (Not Detect); Chlamydophila pneumoniae Not Detected (Not Detect); Coronavirus 229E Not Detected (Not Detect); Coronavirus HKU1 Not Detected (Not Detect); Coronavirus NL63 Not Detected (Not Detect); Coronavirus OC43 Not Detected (Not Detect); Human Metapneumovirus Not Detected (Not Detect); Human Rhinovirus/Enterovirus Not Detected (Not Detect); Influenza A Subtype 2009 H1 Not Detected (Not Detect); Influenza A Untypeable Not Detected (Not Detect); Influenza B Not Detected (Not Detect); Mycoplasma pneumoniae Not Detected (Not Detect); Parainfluenza Virus 1 Not Detected (Not Detect); Parainfluenza Virus 2 Not Detected (Not Detect); Parainfluenza Virus 3 Not Detected (Not Detect); Parainfluenza Virus 4 Not Detected (Not Detect); Respiratory Syncytial Virus Not Detected (Not Detect)
[2017-12-25] MEDS: Cefepime HCl 2,000 MG in Water for inj. (sterile) 20 ML 20 ML IVP SCH (18:50)
[2017-12-25] MEDS: GuaiFENesin Liq 200 MG/10 ML UDC PO PRN (19:48)
[2017-12-25] MEDS: Melatonin 3 MG TABLET PO SCH (19:48)
[2017-12-26] MEDS: MethylPREDNISolone 40 MG/ML VIAL IVP SCH ×3 (00:11→17:10)
[2017-12-26] MEDS: Ipratropium/Albuterol Neb 3 ML IH SCH ×6 (04:07→23:35)
[2017-12-26] MEDS: Cefepime HCl 2,000 MG in Water for inj. (sterile) 20 ML 20 ML IVP SCH ×2 (05:30→17:10)
[2017-12-26 06:23] LABS: INR 2.6; Prothrombin Time 29.2 Seconds (9.4-12.1)
[2017-12-26] MEDS: Budesonide/Formoterol 160/4.5 1 PUFF INH IH SCH ×2 (07:42→19:37)
--- NOTE | 2017-12-26 08:00 | Internal Med Progress Note ---
Hospitalist Progress Note - Encounter Date of Encounter: 12/26/17 Time of Encounter: 08:00 - Exam Vitals: Temp Pulse Resp BP Pulse Ox 97.7 F 77 18 132/68 94 12/26/17 06:47 12/26/17 06:47 12/26/17 06:47 12/26/17 06:47 12/26/17 06:47 Exam: GENERAL: Pleasant female in no acute distress. She is alert and oriented. She answers questions appropriately and is cooperative with exam. HEENT: Atraumatic and normocephalic. Nasal canula in place. Moist mucosa. Erythema of posterior pharynx. Left tonsil is enlarged. Tenderness over bilateral maxillary sinuses. NECK: Tender submandibular lymphadenopathy greater on left. Trachea is midline with no thyromegaly appreciated. CARDIOVASCULAR: Regular rate and rhythm. S1 and S2 present. No murmurs, gallops or rubs. RESPIRATORY: CTA bilaterally. Intermittent wheezes present with cough. No accessory muscle use. GASTROINTESTINAL: Active bowel sounds present x 4 quadrants. Abdomen is soft, nondistended, and nontender. EXTREMITIES: Moderate bilateral edema present that is nonpitting and nontender. No clubbing or cyanosis. - Assessment and Plan (1) Acute respiratory failure with hypoxia Current Visit: Yes Status: Acute Assessment and Plan: Likely secondary to multifocal pneumonia and acute COPD exacerbation and asthma. Started on IV steroids, duonebs and symbicort and antibiotics with cefepime. Monitor oxygen levels and wean off as tolerated. CT angio showed evidence of multifocal pneumonia (2) Multifocal pneumonia Current Visit: Yes Status: Acute Assessment and Plan: Ct chest showed eveidence of multifocal pneumonia. LIkely bacterial HCAP. Obtain blood cultures, urine legionella and streptococcal antigen Continue IV cefepime (3) HTN (hypertension) Current Visit: No Status: Chronic Assessment and Plan: - Continue home medication of metoprolol 25mg PO QD (4) Atrial fibrillation Current Visit: No Status: Chronic Assessment and Plan: Patient underwent ablation in June of this year and had a loop recorder placed on 12/10/2017. She states that she has not had any incidents of atrial fibrillation since her ablation. On exam today, she is in normal sinus rhythm. - Continue home medication of diltiazem 360mg and warfarin (5) Acute sinusitis Current Visit: Yes Status: Acute Assessment and Plan: Patient reports sinus congestion and pressure that has been present for several months. She has tender left submandibular lymphadenopathy, and reports feeling subjectively feverish with occasional chills. - On cefepime (6) DVT prophylaxis Current Visit: No Status: Acute Assessment and Plan: - Continue coumadin therapy with pharmacy to dose to therapeutic INR - Time Spent with Patient Total time spent is greater than 50% in coordination of care (as documented) at patient's floor/unit and/or counseling patient: Internal Medicine: Result - Labs CBC & Chem 7: 12/26/17 08:19 12/26/17 08:19 - ABG Interpretation ABG results: ABG ABG pH 7.43 pH Units (7.32-7.45) 12/25/17 16:46 ABG pCO2 43 mmHg (35-45) 12/25/17 16:46 ABG pO2 83 mmHg (85-104) L 12/25/17 16:46 ABG O2 Saturation 96 % (95-98) 12/25/17 16:46 PT/INR, D-dimer PT 29.2 Seconds (9.4-12.1) H 12/26/17 06:01 - Impressions Impressions Barium Swallow X-Ray 12/25/17 08:53 IMPRESSION: Unremarkable esophagram. If clinically warranted, direct visualization or possibly CT neck soft tissue may be helpful for further evaluation. D/ / Steven Nova / Steven Nova Interpreting Provider: Steven Nova Chest CTA 12/25/17 18:00 IMPRESSION: No findings diagnostic of pulmonary embolus Multifocal airspace disease, right greater than left. Findings are indeterminate. Pneumonia should be considered. Increasing mediastinal and hilar nodes compared to the prior exam. Follow-up is recommended. D/ / Cooper Doll / Cooper Doll Interpreting Provider: Cooper Doll Consult Discharge Plan - Plan Referrals: Aleksandar Strickland DO [Primary Care Provider] - 12/31/17 9:45 am (3) HTN (hypertension) Qualifiers: Hypertension type: essential hypertension Qualified Code(s): I10 - Essential (primary) hypertension (4) Atrial fibrillation Qualifiers: Atrial fibrillation type: paroxysmal Qualified Code(s): I48.0 - Paroxysmal atrial fibrillation (5) Acute sinusitis Qualifiers: Sinusitis location: maxillary Recurrence: not specified as recurrent Qualified Code(s): J01.00 - Acute maxillary sinusitis, unspecified
[2017-12-26 08:43] LABS: Basophils % 0.1 %; Hematocrit 36.3 % (35.3-44.9); Hemoglobin 11.4 g/dL (11.5-15.4); Immature Granulocytes % 0.8 % (0-4); Lymphocytes # 0.6 K/mcL (0.6-4.6); Lymphocytes % 2.9 %; Mean Corpuscular HGB Conc 31.4 g/dL (31.6-35.5); Mean Corpuscular Hemoglobin 27.9 pg (28.0-33.3); Mean Corpuscular Volume 88.8 fL (83.0-100.0); Mean Platelet Volume 9.1 fL (9.4-12.4); Monocytes # 0.4 K/mcL (0.0-1.3); Monocytes % 2.2 %; Neutrophils # 18.8 K/mcL (1.6-8.9); Platelet Count 299 K/mcL (140-400); Red Blood Count 4.09 M/mcL (3.82-4.97); Red Cell Distribution Width 16.5 % (11.5-14.5)
[2017-12-26 09:04] LABS: BUN/Creatinine Ratio 36 (6-26); Blood Urea Nitrogen 26 mg/dL (8-23); Calcium 9.4 mg/dL (8.6-10.3); Carbon Dioxide 27 mEq/L (23-29); Chloride 103 mEq/L (98-107); Glucose 221 mg/dL (70-105); Osmolality,Calculated 302 (280-300); Potassium 3.7 mEq/L (3.5-5.1); Sodium 140 mEq/L (136-145); eGFR For Non-African Americans > 60 (> 60)
[2017-12-26] MEDS: Diltiazem CD (24hr) 180 MG CAPSULE PO SCH (09:39)
[2017-12-26] MEDS: Metoprolol XL (24 HR) Succ 25 MG TAB.ER.24H PO SCH (09:40)
[2017-12-26] MEDS: Aspirin 81 MG TAB.CHEW PO SCH (09:40)
[2017-12-26] MEDS: Insulin LISPRO 300 UNITS/3 ML VIAL SQ SCH ×4 (09:46→21:36)
[2017-12-26] MEDS ORDERED: Warfarin perPT PO PRN (10:00)
[2017-12-26] MEDS: GuaiFENesin Liq 200 MG/10 ML UDC PO PRN (11:36)
[2017-12-26] MEDS: Melatonin 3 MG TABLET PO SCH (21:32)
[2017-12-27] MEDS: Ipratropium/Albuterol Neb 3 ML IH SCH ×6 (03:29→23:38)
[2017-12-27 04:11] LABS: Basophils % 0.1 %; Hematocrit 34.9 % (35.3-44.9); Hemoglobin 10.9 g/dL (11.5-15.4); Immature Granulocytes % 1.2 % (0-4); Lymphocytes # 0.6 K/mcL (0.6-4.6); Lymphocytes % 2.8 %; Mean Corpuscular HGB Conc 31.2 g/dL (31.6-35.5); Mean Corpuscular Hemoglobin 27.7 pg (28.0-33.3); Mean Corpuscular Volume 88.8 fL (83.0-100.0); Mean Platelet Volume 9.3 fL (9.4-12.4); Monocytes # 0.4 K/mcL (0.0-1.3); Neutrophils # 19.5 K/mcL (1.6-8.9); Platelet Count 327 K/mcL (140-400); Red Blood Count 3.93 M/mcL (3.82-4.97); Red Cell Distribution Width 16.9 % (11.5-14.5); Segmented Neutrophils % 93.9 %
[2017-12-27 04:20] LABS: Prothrombin Time 33.7 Seconds (9.4-12.1)
[2017-12-27 04:26] LABS: BUN/Creatinine Ratio 34 (6-26); Blood Urea Nitrogen 30 mg/dL (8-23); Calcium 9.4 mg/dL (8.6-10.3); Carbon Dioxide 26 mEq/L (23-29); Chloride 104 mEq/L (98-107); Glucose 205 mg/dL (70-105); Magnesium 2.4 mg/dL (1.6-2.6); Osmolality,Calculated 300 (280-300); Phosphorous 4.9 mg/dL (2.7-4.5); Sodium 139 mEq/L (136-145); eGFR For Non-African Americans > 60 (> 60)
[2017-12-27] MEDS: Cefepime HCl 2,000 MG in Water for inj. (sterile) 20 ML 20 ML IVP SCH ×2 (06:28→17:19)
[2017-12-27] MEDS: Budesonide/Formoterol 160/4.5 1 PUFF INH IH SCH ×2 (07:27→19:52)
[2017-12-27] MEDS: Insulin LISPRO 300 UNITS/3 ML VIAL SQ SCH ×4 (08:41→20:31)
[2017-12-27] MEDS: Diltiazem CD (24hr) 180 MG CAPSULE PO SCH (08:42)
[2017-12-27] MEDS: Aspirin 81 MG TAB.CHEW PO SCH (08:42)
[2017-12-27] MEDS: predniSONE 20 MG TABLET PO SCH (08:42)
[2017-12-27] MEDS: Metoprolol XL (24 HR) Succ 25 MG TAB.ER.24H PO SCH (08:42)
--- NOTE | 2017-12-27 10:42 | Internal Med Progress Note ---
Hospitalist Progress Note - Encounter Date of Encounter: 12/27/17 Time of Encounter: 07:30 - Exam Vitals: Temp Pulse Resp BP Pulse Ox 97.9 F 75 18 120/61 96 12/27/17 07:21 12/27/17 07:21 12/27/17 07:27 12/27/17 07:21 12/27/17 07:27 Exam: GENERAL: Pleasant female in no acute distress. She is alert and oriented. She answers questions appropriately and is cooperative with exam. HEENT: Atraumatic and normocephalic. Nasal canula in place. Moist mucosa. Erythema of posterior pharynx. Left tonsil is enlarged. Tenderness over bilateral maxillary sinuses. NECK: Tender submandibular lymphadenopathy greater on left. Trachea is midline with no thyromegaly appreciated. CARDIOVASCULAR: Regular rate and rhythm. S1 and S2 present. No murmurs, gallops or rubs. RESPIRATORY: CTA bilaterally. Intermittent wheezes present with cough. No accessory muscle use. GASTROINTESTINAL: Active bowel sounds present x 4 quadrants. Abdomen is soft, nondistended, and nontender. EXTREMITIES: Moderate bilateral edema present that is nonpitting and nontender. No clubbing or cyanosis. - Assessment and Plan (1) Acute respiratory failure with hypoxia Current Visit: Yes Status: Acute Assessment and Plan: Likely secondary to multifocal pneumonia and acute COPD exacerbation and asthma. Started on IV steroids, duonebs and symbicort and antibiotics with cefepime. Monitor oxygen levels and wean off as tolerated. CT angio showed evidence of multifocal pneumonia Patient continues to be hypoxic and requiring up to 5L of oxygen to keep sats above 93% on ambulating so will consult pulmonary for further recommendations (2) Multifocal pneumonia Current Visit: Yes Status: Acute Assessment and Plan: Ct chest showed eveidence of multifocal pneumonia. Likely bacterial HCAP. Obtain blood cultures, urine legionella and streptococcal antigen Continue IV cefepime (3) HTN (hypertension) Current Visit: No Status: Chronic Assessment and Plan: - Continue home medication of metoprolol 25mg PO QD (4) Atrial fibrillation Current Visit: No Status: Chronic Assessment and Plan: Patient underwent ablation in June of this year and had a loop recorder placed on 12/10/2017. She states that she has not had any incidents of atrial fibrillation since her ablation. On exam today, she is in normal sinus rhythm. - Continue home medication of diltiazem 360mg and warfarin (5) Acute sinusitis Current Visit: Yes Status: Acute Assessment and Plan: Patient reports sinus congestion and pressure that has been present for several months. She has tender left submandibular lymphadenopathy, and reports feeling subjectively feverish with occasional chills. - On cefepime (6) DVT prophylaxis Current Visit: No Status: Acute Assessment and Plan: - Continue coumadin therapy with pharmacy to dose to therapeutic INR - Time Spent with Patient Total time spent is greater than 50% in coordination of care (as documented) at patient's floor/unit and/or counseling patient: Internal Medicine: Result - Labs CBC & Chem 7: 12/27/17 03:46 12/27/17 03:46 Labs: Short CBC 12/26/17 12/27/17 Range/Units 08:19 03:46 WBC 20.0 H D 20.8 H (4.3-11.1) K/mcL Hgb 11.4 L 10.9 L (11.5-15.4) g/dL Hct 36.3 34.9 L (35.3-44.9) % Plt Count 299 327 (140-400) K/mcL Neutrophils # 18.8 H 19.5 H (1.6-8.9) K/mcL BMP 12/26/17 12/27/17 08:19 03:46 Sodium 140 139 Potassium 3.7 4.0 Chloride 103 104 Carbon Dioxide 27 26 BUN 26 H 30 H Creatinine 0.73 0.87 Glucose 221 H 205 H Calcium 9.4 9.4 - ABG Interpretation ABG results: ABG ABG pH 7.43 pH Units (7.32-7.45) 12/25/17 16:46 ABG pCO2 43 mmHg (35-45) 12/25/17 16:46 ABG pO2 83 mmHg (85-104) L 12/25/17 16:46 ABG O2 Saturation 96 % (95-98) 12/25/17 16:46 PT/INR, D-dimer PT 33.7 Seconds (9.4-12.1) H 12/27/17 03:46 Consult Discharge Plan - Plan Referrals: Aleksandar Strickland DO [Primary Care Provider] - 12/31/17 9:45 am (3) HTN (hypertension) Qualifiers: Hypertension type: essential hypertension Qualified Code(s): I10 - Essential (primary) hypertension (4) Atrial fibrillation Qualifiers: Atrial fibrillation type: paroxysmal Qualified Code(s): I48.0 - Paroxysmal atrial fibrillation (5) Acute sinusitis Qualifiers: Sinusitis location: maxillary Recurrence: not specified as recurrent Qualified Code(s): J01.00 - Acute maxillary sinusitis, unspecified
--- NOTE | 2017-12-27 10:48 | Pulmonology Consult Note ---
<Harinder Obando W - Last Filed: 12/27/17 16:08> Medications and Allergies Aspirin 81 mg PO DAILY 11/10/14 [History] Cinnamon Bark [Cinnamon] 1,000 mg PO DAILY 10/15/15 [History] Psyllium Husk [Daily Fiber] 2 tab PO DAILY 10/15/15 [History] Omeprazole [PriLOSEC] 20 mg PO DAILY 11/29/15 [History] Acetaminophen [Tylenol] 500 mg PO Q6HR PRN 08/25/16 [History] Calcium Carbonate [Calcium] 600 mg PO DAILY 05/28/17 [History] Fluticasone Furoate [Arnuity Ellipta] 200 mcg IH DAILY 05/28/17 [History] Melatonin 5 mg PO HS 05/28/17 [History] Diltiazem CD (24hr) [Cardizem CD] 360 mg PO DAILY #30 cap.er.24h 06/25/17 [Rx] Metoprolol XL (24 HR) Succ [Toprol Xl] 25 mg PO DAILY #30 tab.er.24h 06/25/17 [Rx] Albuterol Sulfate [Albuterol Inhaler] 1 puff IH Q4H PRN 07/26/17 [History] Furosemide [Lasix] 40 mg PO DAILY PRN 07/26/17 [History] Ferrous Sulfate [High Potency Iron] 27 mg PO DAILY 12/10/17 [History] Rosuvastatin [Crestor] 10 mg PO HS 12/10/17 [History] Warfarin [Coumadin] 2.5 mg PO SUMOTUTHFRSA 12/24/17 [History] Allergy/AdvReac Type Severity Reaction Status Date / Time adhesive tape Allergy Hives Verified 12/10/17 12:06 All Systems: The remainder of the systems were reviewed and are negative Physical Examination Vital Signs: Vital Signs, Last 4 Hours Resp Pulse Ox 12/27/17 16:03 16 94 Results - Laboratory Findings CBC and BMP: 12/27/17 03:46 12/27/17 03:46 ABG ABG pH 7.43 pH Units (7.32-7.45) 12/25/17 16:46 ABG pCO2 43 mmHg (35-45) 12/25/17 16:46 ABG pO2 83 mmHg (85-104) L 12/25/17 16:46 ABG O2 Saturation 96 % (95-98) 12/25/17 16:46 PT/INR, D-dimer PT 33.7 Seconds (9.4-12.1) H 12/27/17 03:46 Abnormal lab findings: Abnormal lab results WBC 20.8 K/mcL (4.3-11.1) H 12/27/17 03:46 Hgb 10.9 g/dL (11.5-15.4) L 12/27/17 03:46 Hct 34.9 % (35.3-44.9) L 12/27/17 03:46 MCH 27.7 pg (28.0-33.3) L 12/27/17 03:46 MCHC 31.2 g/dL (31.6-35.5) L 12/27/17 03:46 RDW 16.9 % (11.5-14.5) H 12/27/17 03:46 MPV 9.3 fL (9.4-12.4) L 12/27/17 03:46 Neutrophils # 19.5 K/mcL (1.6-8.9) H 12/27/17 03:46 PT 33.7 Seconds (9.4-12.1) H 12/27/17 03:46 ABG pO2 83 mmHg (85-104) L 12/25/17 16:46 ABG HCO3 29 mEq/L (21-27) H 12/25/17 16:46 ABG Total CO2 30 mEq/L (20-26) H 12/25/17 16:46 ABG Base Excess 4 mEq/L (-2 to 3) H 12/25/17 16:46 BUN 30 mg/dL (8-23) H 12/27/17 03:46 BUN/Creatinine Ratio 34 (6-26) H 12/27/17 03:46 Glucose 205 mg/dL (70-105) H 12/27/17 03:46 POC Glucose 177 mg/dL (70-99) H 12/27/17 07:59 Phosphorus 4.9 mg/dL (2.7-4.5) H 12/27/17 03:46 - Microbiology Findings Microbiology Findings: Microbiology, Last 48 Hours 12/27/17 01:45 Legionella Antigen - Final Urine,Clean Catch Streptococcus pneumoniae Antigen (M - Final 12/26/17 08:19 Blood Culture - Preliminary Peripheral Venipuncture Culture is incubating and being continuously monito red for growth. Final report to follow. 12/26/17 08:28 Blood Culture - Preliminary Peripheral Venipuncture Culture is incubating and being continuously monitored for growth. Final report to follow. - Clinical Findings Intake & Output: Intake & Output 12/27/17 12/27/17 12/27/17 07:59 15:59 23:59 Intake Total 240 / 240 Output Total 650 / 650 Balance -630 / -630 240 / 240 Weight 108.3 kg Consult Discharge Plan - Plan Referrals: Aleksandar Strickland DO [Primary Care Provider] - 12/31/17 9:45 am - Attending Attestation I examined this patient and my medical decision-making was reviewed with the Resident Physician. I agree with the documented findings, disposition and treatment plan as described except to the extent set forth below. We independently had [id number] contact with the patient Patient seen and examined at bedside Labs, radiology, chart personally reviewed. Impression/Recs Acute hypoxic respiratory failure Pneumonia Asthma with exacerbation Restrictive lung disease 67-year-old woman with a long-standing atrial fibrillation limited the amount of time with amiodarone use. Presents to the hospital for pneumonia which was failed to treat effectively in the outpatient setting. I have concern about possibility of underlying interstitial lung disease given the pulmonary function testings and CT scan. It is unclear to me if the consolidative changes in the right lower lobe are infectious and the rest of the infiltrates may be more chronic inflammatory in nature or related to the same process Continue supplemental oxygen to keep saturation around 90-94% A bronchoscopy is recommended. The procedure , risks, benefits, complications, and expected outcomes have been reviewed. Benefits of diagnosis, as well as risks to include bleeding, infection, pneumothorax which may require surgical intervention, and in a small population. The patient is aware that sometim es test is nondiagnostic. Discussed with patient and agrees to proceed. Patient also understands that there is an increased risk of stroke with the holding her warfarin and she agrees to proceed I have given her 2.5 mg subcutaneous vitamin K for planned procedure tomorrow please keep nothing by mouth at midnight. I repeated her INR in the morning She has received outpatient atypical coverage and MRSA is negative I believe cefepime is a reasonable choice at present for antimicrobial coverage I agree with steroids prednisone 40 mg daily and scheduled bronchodilators We have added on an inflammatory panel to evaluate for connective tissue disease She will need outpatient pulmonary follow-up for repeat CT scan and pulmonary function testing Thank you for the consult we will continue to follow <Geraldine Tian - Last Filed: 12/27/17 20:13> Date of Encounter: 12/27/17 Time of Encounter: 08:00 Assessment and Plan (1) Acute respiratory failure with hypoxia Current Visit: Yes Status: Acute On presentation, SpO2 dropped into 80's with ambulation Suspect d/t asthma exacerbation in setting of unresolved PNA Maintaining SpO2 in 90's on 3L nasal cannula--does not wear oxygen at home 05/2017 PFT: moderate restrictive airway disease, no response to bronchodilators, moderately reduced lung volume, moderately reduced diffusion capacity Interstitial lung disease suspected based on PFT (no previous PFT); pulmonary toxicity from amiodarone is also a consideration Chest CTA negative for evidence of TN, shows multifocal airspace disease of R > L, increased mediastinal and hilar nodes compared to previous Continue supplemental oxygen to maintain SpO2 of at least 90% Continue steroids 40mg PO Continue scheduled Duonebs and Symbicort with PRN albuterol inhaler (2) Pneumonia Current Visit: Yes Status: Acute Currently on cefepime, today is day 3 11/29: Diagnosed with bronchitis by PCP--completed course of cefdinir 300mg BID x 10 days 11/29 CXR: consolidations in RLL and small right pleural effusion 12/11: Prescribed and completed course of levofloxacin 750mg daily x 7 days Legionella and S. pneumoniae antigens negative Respiratory infection panel negative MRSA swab negative Blood cultures collected, results pending Sputum culture and gram stain Continue cefepime for now Qualifiers: Pneumonia type: due to unspecified organism Laterality: right Lung location: unspecified part of lung Qualified Code(s): J18.9 - Pneumonia, unspecified organism (3) Asthma exacerbation Current Visit: Yes Status: Acute Qualifiers: Asthma severity: moderate Asthma persistence: persistent Qualified Code(s): J45.41 - Moderate persistent asthma with (acute) exacerbation (4) Interstitial lung disease Current Visit: Yes Status: Acute Interstitial lung disease suspected based on PFT; pulmonary toxicity from amiodarone is also a consideration Will need outpatient f/u H High resolution CT and new PFTs will be needed and can be done outpatient Bronchoscopy planned for tomorrow (5) Restrictive lung disease Current Visit: Yes Status: Acute 05/2017 PFT: moderate restrictive airway disease, no response to bronchodilators, moderately reduced lung volume, moderately reduced diffusion capacity (6) History of asthma Current Visit: Yes Status: Acute No previous PFT for comparison May 2017 PFT: moderate restrictive airway disease, no response to bronchodilators, moderately reduced lung volume, moderately reduced diffusion capacity History of Present Illness Consult date: 12/27/17 Requesting physician: Joshua Winn Reason for consult: dyspnea, pneumonia Chief complaint: increased shortness of breath History of present illness: Ms. Merida is a 67 year-old female with PMH of asthma, JOVANNA, Afib s/p ablation June 2017, breast cancer, and HTN who presented to the ED for c/o increased shortness of breath for several months with productive cough. She was seen by her PCP in late November and prescribed cefdinir for diagnosis of bronchitis, CXR showed consolidations of right lower lobe of lung and small pleural effusion on the right. She completed the 10 day course of cefdinir and didn't improve; she returned to her PCP on December 11 and was prescribed a 7 day course of levofloxacin, which she completed. Patient reports her cough has increased and is productive of sputum that ranges from clear to yellow to blood-tinged. She has a cough with exertion at baseline, but cough on exertion has increased over past week. Admits to increased use of rescue inhaler with limited improvement. Admits to fevers and chills x 1 week, nausea, occasional post-tussive emesis, sinus drainage, chest pain after coughing. Denies orthopnea, cardiac chest pain, increased lower extremity swelling. She states she's never been diagnosed with COPD and has never smoked tobacco. States she was diagnosed with CHF around the time before her ablation for afib. Limited echo June 2017 showed LVEF 70% with normal structure and function of both ventricles. Chest CTA negative for evidence of TN, shows multifocal airspace disease of R > L, increased med iastinal and hilar nodes compared to previous. On arrival to the ED, she was afebrile with HR 75, RR 18, BP 160/70, and SpO2 95% on 5L nasal cannula--she does not wear oxygen at home. Initial work up showed no leukocytosis, negative troponin, and BNP 59. CXR appears similar to the film taken 11/29/17, both show RLL consolidation and right-sided pleural effusion. Oxygen saturation while ambulating reported to have dropped into 80's. Past Med Surg Social Fam HX - Past Medical History Medical history: asthma, atrial fibrillation, cancer, hypertension Additional medical history: breast cx Psychiatric history: no psych history - Past Surgical History Surgical History: breast surgery, cancer surgery, hysterectomy Additional surgical history: cardiac ablation, L mastectomy - Social History Smoking Status: Never smoker Smokeless Tobacco Status: No Alcohol use: none Drug use: none - Family History Father Family Member Ethnicity: Non- Living Status: Hx Family Cardiac Disorders: Yes (hypertension) Hx Family Respiratory Disorders: No Hx Family Cancer: No Hx Family GI Disorders: No Hx Family Endocrine Disorder: Yes (diabetes) Hx Family Neuromuscular Disorders: No Hx Family Neurologic Disorders: No Hx Family HEENT Disorders: No Hx Family Autoimmune Disorders: No Mother Adopted: No Family Member Ethnicity: Non- Living Status: Still Living Hx Family Cardiac Disorders: Yes (Afib) Hx Family Respiratory Disorders: No Hx Family Cancer: Yes (Colon) Hx Family GI Disorders: Yes (Cancer) Hx Family Endocrine Disorder: Yes Hx Family Neuromuscular Disorders: Yes (Stroke 2016) Hx Family Neurologic Disorders: No Hx Family HEENT Disorders: No Hx Family Autoimmune Disorders: No All Systems: The remainder of the systems were reviewed and are negative - Constitutional Constitutional: as per HPI - Cardiovascular Cardiovascular: as per HPI - Respiratory Respiratory: as per HPI - Gastrointestinal Gastrointestinal: as per HPI Physical Examination Vital Signs: Vital Signs, Last 4 Hours Temp Pulse Resp BP Pulse Ox 12/27/17 07:27 18 96 12/27/17 07:21 97.9 F 75 16 120/61 94 12/27/17 06:38 92 General appearance: no acute distress, alert Eyes: nonicteric, injected ENT: oropharynx moist Effort: normal Inspection: normal Auscultation: bilateral: diminished breath sounds (especially RLL), rhonchi Cardiovascular: regular rate and rhythm Gastrointestinal: normoactive bowel sounds, soft, non-tender, non-distended Integumentary: normal Extremities: no cyanosis, no edema, pink and warm, pulses normal normal mental status, non-focal exam, pupils equal and round, CN II-XII normal mood appropriate Results - Laboratory Findings CBC and BMP: 12/27/17 03:46 12/27/17 03:46 ABG ABG pH 7.43 pH Units (7.32-7.45) 12/25/17 16:46 ABG pCO2 43 mmHg (35-45) 12/25/17 16:46 ABG pO2 83 mmHg (85-104) L 12/25/17 16:46 ABG O2 Saturation 96 % (95-98) 12/25/17 16:46 PT/INR, D-dimer PT 33.7 Seconds (9.4-12.1) H 12/27/17 03:46 Abnormal lab findings: Abnormal lab results WBC 20.8 K/mcL (4.3-11.1) H 12/27/17 03:46 Hgb 10.9 g/dL (11.5-15.4) L 12/27/17 03:46 Hct 34.9 % (35.3-44.9) L 12/27/17 03:46 MCH 27.7 pg (28.0-33.3) L 12/27/17 03:46 MCHC 31.2 g/dL (31.6-35.5) L 12/27/17 03:46 RDW 16.9 % (11.5-14.5) H 12/27/17 03:46 MPV 9.3 fL (9.4-12.4) L 12/27/17 03:46 Neutrophils # 19.5 K/mcL (1.6-8.9) H 12/27/17 03:46 PT 33.7 Seconds (9.4-12.1) H 12/27/17 03:46 ABG pO2 83 mmHg (85-104) L 12/25/17 16:46 ABG HCO3 29 mEq/L (21-27) H 12/25/17 16:46 ABG Total CO2 30 mEq/L (20-26) H 12/25/17 16:46 ABG Base Excess 4 mEq/L (-2 to 3) H 12/25/17 16:46 BUN 30 mg/dL (8-23) H 12/27/17 03:46 BUN/Creatinine Ratio 34 (6-26) H 12/27/17 03:46 Glucose 205 mg/dL (70-105) H 12/27/17 03:46 POC Glucose 177 mg/dL (70-99) H 12/27/17 07:59 Phosphorus 4.9 mg/dL (2.7-4.5) H 12/27/17 03:46 - Microbiology Findings Microbiology Findings: Microbiology, Last 48 Hours 12/27/17 01:45 Legionella Antigen - Final Urine,Clean Catch Streptococcus pneumoniae Antigen (M - Final 12/26/17 08:19 Blood Culture - Preliminary Peripheral Venipuncture Culture is incubating and being continuously monitored for growth. Final report to follow. 12/26/17 08:28 Blood Culture - Preliminary Peripheral Venipuncture Culture is incubating and being continuously mon itored for growth. Final report to follow. - Clinical Findings Intake & Output: Intake & Output 12/26/17 12/27/17 12/27/17 23:59 07:59 15:59 Intake Total 380 / 380 20 / 20 240 / 240 Output Total 700 / 700 650 / 650 Balance -320 / -320 -630 / -630 240 / 240 Weight 108.3 kg
[2017-12-27] MEDS ORDERED: *HR* Phytonadione 10 MG/ML AMPUL SQ ONE (13:08)
[2017-12-27] MEDS: Melatonin 3 MG TABLET PO SCH (20:30)
[2017-12-28] MEDS: Ipratropium/Albuterol Neb 3 ML IH SCH ×6 (04:17→23:55)
[2017-12-28 04:59] LABS: Basophils # 0.1 K/mcL (0.0-0.2); Basophils % 0.4 %; Eosinophils % 0.1 %; Hematocrit 34.9 % (35.3-44.9); Hemoglobin 10.5 g/dL (11.5-15.4); Immature Granulocytes % 2.7 % (0-4); Lymphocytes # 0.7 K/mcL (0.6-4.6); Lymphocytes % 4.3 %; Mean Corpuscular HGB Conc 30.1 g/dL (31.6-35.5); Mean Corpuscular Volume 89.7 fL (83.0-100.0); Mean Platelet Volume 9.3 fL (9.4-12.4); Monocytes # 0.7 K/mcL (0.0-1.3); Monocytes % 4.3 %; Neutrophils # 14.2 K/mcL (1.6-8.9); Platelet Count 297 K/mcL (140-400); Red Blood Count 3.89 M/mcL (3.82-4.97); Red Cell Distribution Width 17.1 % (11.5-14.5); Segmented Neutrophils % 88.2 %
[2017-12-28 05:16] LABS: INR 2.8; Prothrombin Time 31.1 Seconds (9.4-12.1)
[2017-12-28 05:18] LABS: BUN/Creatinine Ratio 52 (6-26); Blood Urea Nitrogen 38 mg/dL (8-23); Calcium 9.1 mg/dL (8.6-10.3); Carbon Dioxide 26 mEq/L (23-29); Chloride 107 mEq/L (98-107); Glucose 191 mg/dL (70-105); Magnesium 2.5 mg/dL (1.6-2.6); Osmolality,Calculated 306 (280-300); Phosphorous 4.9 mg/dL (2.7-4.5); Potassium 4.5 mEq/L (3.5-5.1); Sodium 141 mEq/L (136-145); eGFR For Non-African Americans > 60 (> 60)
[2017-12-28] MEDS ORDERED: *HR* Phytonadione 10 MG/ML AMPUL SQ STA (05:54)
[2017-12-28] MEDS: Cefepime HCl 2,000 MG in Water for inj. (sterile) 20 ML 20 ML IVP SCH ×2 (06:20→17:08)
[2017-12-28] MEDS: Insulin LISPRO 300 UNITS/3 ML VIAL SQ SCH ×4 (07:13→21:33)
[2017-12-28] MEDS: Budesonide/Formoterol 160/4.5 1 PUFF INH IH SCH ×2 (07:25→20:29)
[2017-12-28] MEDS: Aspirin 81 MG TAB.CHEW PO SCH (08:21)
[2017-12-28] MEDS: predniSONE 20 MG TABLET PO SCH (08:21)
[2017-12-28] MEDS: Diltiazem CD (24hr) 180 MG CAPSULE PO SCH (08:22)
[2017-12-28] MEDS: Metoprolol XL (24 HR) Succ 25 MG TAB.ER.24H PO SCH (08:22)
--- NOTE | 2017-12-28 08:44 | Internal Med Progress Note ---
Hospitalist Progress Note - Encounter Date of Encounter: 12/28/17 Time of Encounter: 08:30 - Exam Vitals: Temp Pulse Resp BP Pulse Ox 98.3 F 73 16 130/59 92 12/28/17 08:11 12/28/17 08:11 12/28/17 08:11 12/28/17 08:11 12/28/17 08:11 Exam: GENERAL: Pleasant female in no acute distress. She is alert and oriented. She answers questions appropriately and is cooperative with exam. HEENT: Atraumatic and normocephalic. Nasal canula in place. Moist mucosa. Erythema of posterior pharynx. Left tonsil is enlarged. Tenderness over bilateral maxillary sinuses. NECK: Tender submandibular lymphadenopathy greater on left. Trachea is midline with no thyromegaly appreciated. CARDIOVASCULAR: Regular rate and rhythm. S1 and S2 present. No murmurs, gallops or rubs. RESPIRATORY: CTA bilaterally. Intermittent wheezes present with cough. No accessory muscle use. GASTROINTESTINAL: Active bowel sounds present x 4 quadrants. Abdomen is soft, nondistended, and nontender. EXTREMITIES: Moderate bilateral edema present that is nonpitting and nontender. No clubbing or cyanosis. - Assessment and Plan (1) Acute respiratory failure with hypoxia Current Visit: Yes Status: Acute Assessment and Plan: Likely secondary to multifocal pneumonia and acute COPD exacerbation and asthma. Started on IV steroids, duonebs and symbicort and antibiotics with cefepime. Monitor oxygen levels and wean off as tolerated. CT angio showed evidence of multifocal pneumonia Patient continues to be hypoxic and requiring up to 5L of oxygen to keep sats above 93% on ambulating Per pulmonary, persisent hypoxemia and non resolving respiratory symptoms may be secondary to interstitial lung disease. Patient is scheduled for bronchoscopy today. Appreciate pullorena parsons (2) Multifocal pneumonia Current Visit: Yes Status: Acute Assessment and Plan: Ct chest showed eveidence of multifocal pneumonia. Likely bacterial HCAP. Obtain blood cultures, urine legionella and streptococcal antigen Continue IV cefepime (3) HTN (hypertension) Current Visit: No Status: Chronic Assessment and Plan: - Continue home medication of metoprolol 25mg PO QD (4) Atrial fibrillation Current Visit: No Status: Chronic Assessment and Plan: Patient underwent ablation in June of this year and had a loop recorder placed on 12/10/2017. She states that she has not had any incidents of atrial fibrillation since her ablation. On exam today, she is in normal sinus rhythm. - Continue home medication of diltiazem 360mg and warfarin (5) Acute sinusitis Current Visit: Yes Status: Acute Assessment and Plan: Patient reports sinus congestion and pressure that has been present for several months. She has tender left submandibular lymphadenopathy, and reports feeling subjectively feverish with occasional chills. - On cefepime (6) DVT prophylaxis Current Visit: No Status: Acute Assessment and Plan: - Continue coumadin therapy with pharmacy to dose to therapeutic INR - Time Spent with Patient Total time spent is greater than 50% in coordination of care (as documented) at patient's floor/unit and/or counseling patient: Internal Medicine: Result - Labs CBC & Chem 7: 12/28/17 03:44 12/28/17 03:44 Labs: Short CBC 12/28/17 Range/Units 03:44 WBC 16.1 H (4.3-11.1) K/mcL Hgb 10.5 L (11.5-15.4) g/dL Hct 34.9 L (35.3-44.9) % Plt Count 297 (140-400) K/mcL Neutrophils # 14.2 H (1.6-8.9) K/mcL BMP 12/28/17 03:44 Sodium 141 Potassium 4.5 Chloride 107 Carbon Dioxide 26 BUN 38 H Creatinine 0.73 Glucose 191 H Calcium 9.1 - ABG Interpretation ABG results: ABG ABG pH 7.43 pH Units (7.32-7.45) 12/25/17 16:46 ABG pCO2 43 mmHg (35-45) 12/25/17 16:46 ABG pO2 83 mmHg (85-104) L 12/25/17 16:46 ABG O2 Saturation 96 % (95-98) 12/25/17 16:46 PT/INR, D-dimer PT 31.1 Seconds (9.4-12.1) H 12/28/17 03:44 Consult Discharge Plan - Plan Referrals: Aleksandar Strickland DO [Primary Care Provider] - 12/31/17 9:45 am (3) HTN (hypertension) Qualifiers: Hypertension type: essential hypertension Qualified Code(s): I10 - Essential (primary) hypertension (4) Atrial fibrillation Qualifiers: Atrial fibrillation type: paroxysmal Qualified Code(s): I48.0 - Paroxysmal atrial fibrillation (5) Acute sinusitis Qualifiers: Sinusitis location: maxillary Recurrence: not specified as recurrent Qualified Code(s): J01.00 - Acute maxillary sinusitis, unspecified
[2017-12-28 09:24] LABS: INR 2.6; Prothrombin Time 28.8 Seconds (9.4-12.1)
--- NOTE | 2017-12-28 09:42 | Pulmonology Progress Note ---
Date of Encounter: 12/28/17 Time of Encounter: 09:42 Assessment and Plan (1) Acute respiratory failure with hypoxia Current Visit: Yes Status: Acute (2) Multifocal pneumonia Current Visit: Yes Status: Acute The plan was for bronchoscopy today however patient's INR is still supratherap eutic suspect use of vitamin K over the last day 2 doses. This would be put on hold now and I will would keep nothing by mouth for planned procedure tomorrow along with repeat INR. Otherwise continue antimicrobials steroids and bronchodilators recommend out of bed to chair if possible a day and incentive spirometry would also recommend a one time dose of Lasix as she appears to be a little bit volume overloaded today on exam. Oxygen level is stable able to wean down goal to wean off completely for saturation to be around 92% on room air (3) Supratherapeutic INR Current Visit: No Status: Acute (4) Asthma exacerbation Current Visit: Yes Status: Acute Qualifiers: Asthma severity: moderate Asthma persistence: persistent Qualified Code(s): J45.41 - Moderate persistent asthma with (acute) exacerbation Subjective Principal diagnosis: Pneumonia Interval history: No acute events overnight. Patient denies any fevers. She says her breathing some better than when she came in and she is able to get more air in. Has had some cough occasionally has been mixed with some blood but this is been rarely. Objective PUL Vital signs: Last Vital Signs Temp 98.3 F 12/28/17 08:11 Pulse 73 12/28/17 08:11 Resp 16 12/28/17 08:11 BP 130/59 12/28/17 08:11 Pulse Ox 92 12/28/17 08:11 General appearance: no acute distress Eyes: nonicteric Auscultation: bilateral: diminished breath sounds (Right greater than left) Cardiovascular: regular rate and rhythm Gastrointestinal: normoactive bowel sounds Integumentary: normal Extremities: no cyanosis, edema Musculoskeletal: no deformities normal mental status, non-focal exam mood appropriate Results - Laboratory Findings CBC and BMP: 12/28/17 03:44 12/28/17 03:44 ABG ABG pH 7.43 pH Units (7.32-7.45) 12/25/17 16:46 ABG pCO2 43 mmHg (35-45) 12/25/17 16:46 ABG pO2 83 mmHg (85-104) L 12/25/17 16:46 ABG O2 Saturation 96 % (95-98) 12/25/17 16:46 PT/INR, D-dimer PT 28.8 Seconds (9.4-12.1) H 12/28/17 08:59 Abnormal lab findings: Abnormal lab results WBC 16.1 K/mcL (4.3-11.1) H 12/28/17 03:44 Hgb 10.5 g/dL (11.5-15.4) L 12/28/17 03:44 Hct 34.9 % (35.3-44.9) L 12/28/17 03:44 MCH 27.0 pg (28.0-33.3) L 12/28/17 03:44 MCHC 30.1 g/dL (31.6-35.5) L 12/28/17 03:44 RDW 17.1 % (11.5-14.5) H 12/28/17 03:44 MPV 9.3 fL (9.4-12.4) L 12/28/17 03:44 Neutrophils # 14.2 K/mcL (1.6-8.9) H 12/28/17 03:44 ESR 30 mm/hr (0-15) H 12/27/17 19:23 PT 28.8 Seconds (9.4-12.1) H 12/28/17 08:59 ABG pO2 83 mmHg (85-104) L 12/25/17 16:46 ABG HCO3 29 mEq/L (21-27) H 12/25/17 16:46 ABG Total CO2 30 mEq/L (20-26) H 12/25/17 16:46 ABG Base Excess 4 mEq/L (-2 to 3) H 12/25/17 16:46 BUN 38 mg/dL (8-23) H 12/28/17 03:44 BUN/Creatinine Ratio 52 (6-26) H 12/28/17 03:44 Glucose 191 mg/dL (70-105) H 12/28/17 03:44 POC Glucose 121 mg/dL (70-99) H 12/27/17 20:04 Calculated Osmolality 306 (280-300) H 12/28/17 03:44 Phosphorus 4.9 mg/dL (2.7-4.5) H 12/28/17 03:44 C-Reactive Protein 11 mg/L (Less than 10) H 12/27/17 19:23 - Microbiology Findings Microbiology Findings: Microbiology, Last 48 Hours 12/27/17 01:45 Legionella Antigen - Final Urine,Clean Catch Streptococcus pneumoniae Antigen (M - Final 12/26/17 08:19 Blood Culture - Preliminary Peripheral Venipuncture Culture is incubating and being continuously monitored for growth. Final report to follow. 12/26/17 08:28 Blood Culture - Preliminary Peripheral Venipuncture Culture is incubating and being continuously monitored for growth. Final report to follow. - Clinical Findings Intake & Output: Intake & Output 12/27/17 12/28/17 12/28/17 23:59 07:59 15:59 Intake Total 140 / 140 0 / 0 Output Total 400 / 400 650 / 650 Balance -260 / -260 -650 / -650 Weight 108.7 kg Consult Discharge Plan - Plan Referrals: Aleksandar Strickland DO [Primary Care Provider] - 12/31/17 9:45 am
[2017-12-28] MEDS ORDERED: Furosemide 20 MG/2 ML VIAL IVP ONE (10:59)
--- NOTE | 2017-12-28 16:08 | Electrocardiograph Report ---
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
[2017-12-28] MEDS: Melatonin 3 MG TABLET PO SCH (21:32)
[2017-12-29] MEDS: Cefepime HCl 2,000 MG in Water for inj. (sterile) 20 ML 20 ML IVP SCH ×3 (00:39→20:03)
[2017-12-29 03:26] LABS: Basophils # 0.1 K/mcL (0.0-0.2); Basophils % 0.5 %; Eosinophils % 0.1 %; Hematocrit 33.2 % (35.3-44.9); Hemoglobin 10.2 g/dL (11.5-15.4); Immature Granulocytes % 4.8 % (0-4); Lymphocytes # 1.2 K/mcL (0.6-4.6); Lymphocytes % 10.5 %; Mean Corpuscular HGB Conc 30.7 g/dL (31.6-35.5); Mean Corpuscular Hemoglobin 27.4 pg (28.0-33.3); Mean Corpuscular Volume 89.2 fL (83.0-100.0); Mean Platelet Volume 9.2 fL (9.4-12.4); Monocytes # 0.9 K/mcL (0.0-1.3); Monocytes % 7.7 %; Neutrophils # 8.5 K/mcL (1.6-8.9); Platelet Count 257 K/mcL (140-400); Red Blood Count 3.72 M/mcL (3.82-4.97); Red Cell Distribution Width 16.9 % (11.5-14.5); Segmented Neutrophils % 76.4 %
[2017-12-29 03:35] LABS: INR 1.9; Prothrombin Time 21.1 Seconds (9.4-12.1)
[2017-12-29 03:45] LABS: BUN/Creatinine Ratio 43 (6-26); Blood Urea Nitrogen 37 mg/dL (8-23); Calcium 8.6 mg/dL (8.6-10.3); Carbon Dioxide 29 mEq/L (23-29); Chloride 107 mEq/L (98-107); Glucose 154 mg/dL (70-105); Magnesium 2.4 mg/dL (1.6-2.6); Osmolality,Calculated 306 (280-300); Phosphorous 4.3 mg/dL (2.7-4.5); Potassium 4.1 mEq/L (3.5-5.1); Sodium 142 mEq/L (136-145); eGFR For Non-African Americans > 60 (> 60)
[2017-12-29] MEDS: Ipratropium/Albuterol Neb 3 ML IH SCH ×6 (04:53→23:45)
--- NOTE | 2017-12-29 07:23 | Anesthesia Evaluation PreOp ---
Date of Encounter: 12/29/17 Time of Encounter: 08:15 - Past History Planned Operation: bronchoscopy Cardiac History: HTN, Hyperlipidemia, Arrhythmia (atrial fibrillation s/p ablation) Pulmonary History: Asthma (with exacerbation), Other (acute pneumonia, restrictive lung disease (? from amiodarone), acute hypoxia respiratory failure) [employer] History: TIA (after cardioversion) Other Medical History: Diabetes Type II (elevated glucose readings this hospitalization (as high as 224) but A1c 6.0; maybe pre-diabetes?), GERD Anesthesia History: Problems (nausea once) Alcohol Use: none Drug use: none Medications and Allergies Aspirin 81 mg PO DAILY 11/10/14 [History] Cinnamon Bark [Cinnamon] 1,000 mg PO DAILY 10/15/15 [History] Psyllium Husk [Daily Fiber] 2 tab PO DAILY 10/15/15 [History] Omeprazole [PriLOSEC] 20 mg PO DAILY 11/29/15 [History] Acetaminophen [Tylenol] 500 mg PO Q6HR PRN 08/25/16 [History] Calcium Carbonate [Calcium] 600 mg PO DAILY 05/28/17 [History] Fluticasone Furoate [Arnuity Ellipta] 200 mcg IH DAILY 05/28/17 [History] Melatonin 5 mg PO HS 05/28/17 [History] Diltiazem CD (24hr) [Cardizem CD] 360 mg PO DAILY #30 cap.er.24h 06/25/17 [Rx] Metoprolol XL (24 HR) Succ [Toprol Xl] 25 mg PO DAILY #30 tab.er.24h 06/25/17 [Rx] Albuterol Sulfate [Albuterol Inhaler] 1 puff IH Q4H PRN 07/26/17 [History] Furosemide [Lasix] 40 mg PO DAILY PRN 07/26/17 [History] Ferrous Sulfate [High Potency Iron] 27 mg PO DAILY 12/10/17 [History] Rosuvastatin [Crestor] 10 mg PO HS 12/10/17 [History] Warfarin [Coumadin] 2.5 mg PO SUMOTUTHFRSA 12/24/17 [History] Allergy/AdvReac Type Severity Reaction Status Date / Time adhesive tape Allergy Hives Verified 12/10/17 12:06 - Meds/Allergy Pre-op Review Medications Reviewed: Yes Allergies Reviewed: Yes Beta Blockers on Current Med List: Yes (metoprolol xl) If Beta Blockers taken, Date/Time (Last Dose taken): 12-28-17 @ 8:22 Anesthesia Results - Labs 12/29/17 03:03 12/29/17 03:03 - Imaging EKG: report reviewed, image reviewed (SR) Additional studies: 2018 TTE: Findings: Study Quality * Technically adequate exam. ECG Findings * Atrial fibrillation. Left Ventricle * LVEF 70%. * Normal LV chamber size, wall thickness and function. Right Ventricle * Normal right ventricular structure and function. Pericardium * The pericardium appears normal. Anesthesia Exam Last Vital Signs Temp 97.8 F 12/29/17 04:00 Pulse 71 12/29/17 04:00 Resp 16 12/29/17 04:53 BP 129/70 12/29/17 04:00 Pulse Ox 94 12/29/17 04:53 Weight: 109 kg NPO (# of Hours): > 8 hrs - HEENT Pupil (Motor): Pupils equal, EOMI Mallampati: III Teeth: Poor dentition Oral Opening: Greater than 3 - [employer] LOC: Oriented [employer]DER Motor: Normal RUE, Normal LUE, Normal RLE, Normal LLE, Normal Face - Cardiac Rhythm: Regular Murmur: None - Pulmonary Breath Sounds: bilateral Clear (mild, wheezing) Respiratory Effort: Symmetrical Anesthesia Assess/Plan ASA Score: 4 Modified [place] Scale for Level of Consciousness: Cooperative, oriented, and tranquil Anesthetic Plan: General Monitoring Plan: Standard Monitors Recovery Plan: PACU
[2017-12-29] MEDS ORDERED: *HR* Propofol 200 MG/20 ML VIAL IVP ONE (07:24)
[2017-12-29] MEDS ORDERED: Ondansetron 4 MG/2 ML VIAL ONE (07:26)
[2017-12-29] MEDS ORDERED: Dexamethasone 4 MG/ML VIAL ONE (07:26)
[2017-12-29] MEDS ORDERED: Lidocaine -MPF 2% 2 ML VIAL ONE (07:26)
[2017-12-29] MEDS: Insulin LISPRO 300 UNITS/3 ML VIAL SQ SCH ×4 (07:30→22:14)
[2017-12-29] MEDS ORDERED: Ondansetron 4 MG/2 ML VIAL IVP ONE (08:11)
--- NOTE | 2017-12-29 08:18 | Internal Med Progress Note ---
Hospitalist Progress Note - Encounter Date of Encounter: 12/29/17 Time of Encounter: 08:20 - Exam Vitals: Temp Pulse Resp BP Pulse Ox 97.8 F 81 18 152/74 96 12/29/17 04:00 12/29/17 08:09 12/29/17 08:09 12/29/17 08:09 12/29/17 08:09 Exam: GENERAL: Pleasant female in no acute distress. She is alert and oriented. She answers questions appropriately and is cooperative with exam. HEENT: Atraumatic and normocephalic. Nasal canula in place. Moist mucosa. Erythema of posterior pharynx. Left tonsil is enlarged. Tenderness over bilateral maxillary sinuses. NECK: Tender submandibular lymphadenopathy greater on left. Trachea is midline with no thyromegaly appreciated. CARDIOVASCULAR: Regular rate and rhythm. S1 and S2 present. No murmurs, gallops or rubs. RESPIRATORY: CTA bilaterally. Intermittent wheezes present with cough. No accessory muscle use. GASTROINTESTINAL: Active bowel sounds present x 4 quadrants. Abdomen is soft, nondistended, and nontender. EXTREMITIES: Moderate bilateral edema present that is nonpitting and nontender. No clubbing or cyanosis. - Assessment and Plan (1) Acute respiratory failure with hypoxia Current Visit: Yes Status: Acute Assessment and Plan: Likely secondary to multifocal pneumonia and acute COPD exacerbation and asthma. Started on IV steroids, duonebs and symbicort and antibiotics with cefepime. Monitor oxygen levels and wean off as tolerated. CT angio showed evidence of multifocal pneumonia Patient 's hypoxia has improved and is on 2l at rest Per pulmonary, persisent hypoxemia and non resolving respiratory symptoms may be secondary to interstitial lung disease. Going for bronchoscopy today. Appreciate pulm recs (2) Multifocal pneumonia Current Visit: Yes Status: Acute Assessment and Plan: Ct chest showed eveidence of multifocal pneumonia. Likely bacterial HCAP. Obtain blood cultures, urine legionella and streptococcal antigen Continue IV cefepime (3) HTN (hypertension) Current Visit: No Status: Chronic Assessment and Plan: - Continue home medication of metoprolol 25mg PO QD (4) Atrial fibrillation Current Visit: No Status: Chronic Assessment and Plan: Patient underwent ablation in June of this year and had a loop recorder placed on 12/10/2017. She states that she has not had any incidents of atrial fibrillation since her ablation. On exam today, she is in normal sinus rhythm. - Continue home medication of diltiazem 360mg and warfarin (5) Acute sinusitis Current Visit: Yes Status: Acute Assessment and Plan: Patient reports sinus congestion and pressure that has been present for several months. She has tender left submandibular lymphadenopathy, and reports feeling subjectively feverish with occasional chills. - On cefepime (6) DVT prophylaxis Current Visit: No Status: Acute Assessment and Plan: - Continue coumadin therapy with pharmacy to dose to therapeutic INR - Time Spent with Patient Total time spent is greater than 50% in coordination of care (as documented) at patient's floor/unit and/or counseling patient: Internal Medicine: Result - Labs CBC & Chem 7: 12/29/17 03:03 12/29/17 03:03 Labs: Short CBC 12/29/17 Range/Units 03:03 WBC 11.1 (4.3-11.1) K/mcL Hgb 10.2 L (11.5-15.4) g/dL Hct 33.2 L (35.3-44.9) % Plt Count 257 (140-400) K/mcL Neutrophils # 8.5 (1.6-8.9) K/mcL BMP 12/29/17 03:03 Sodium 142 Potassium 4.1 Chloride 107 Carbon Dioxide 29 BUN 37 H Creatinine 0.87 Glucose 154 H Calcium 8.6 - ABG Interpretation ABG results: ABG ABG pH 7.43 pH Units (7.32-7.45) 12/25/17 16:46 ABG pCO2 43 mmHg (35-45) 12/25/17 16:46 ABG pO2 83 mmHg (85-104) L 12/25/17 16:46 ABG O2 Saturation 96 % (95-98) 12/25/17 16:46 PT/INR, D-dimer PT 21.1 Seconds (9.4-12.1) H 12/29/17 03:03 Consult Discharge Plan - Plan Referrals: Aleksandar Strickland DO [Primary Care Provider] - 12/31/17 9:45 am (3) HTN (hypertension) Qualifiers: Hypertension type: essential hypertension Qualified Code(s): I10 - Essential (primary) hypertension (4) Atrial fibrillation Qualifiers: Atrial fibrillation type: paroxysmal Qualified Code(s): I48.0 - Paroxysmal atrial fibrillation (5) Acute sinusitis Qualifiers: Sinusitis location: maxillary Recurrence: not specified as recurrent Qualified Code(s): J01.00 - Acute maxillary sinusitis, unspecified
[2017-12-29] MEDS ORDERED: *HR* Midazolam HCl 2 MG/2 ML VIAL ONE (08:24)
[2017-12-29] MEDS ORDERED: *HR* EPINEPHrine 1 MG/10 ML SYRINGE INTRATRACH PRN (08:46)
--- NOTE | 2017-12-29 09:41 | Anesthesia Evaluation Post Op ---
Date of Encounter: 12/29/17 Time of Encounter: 09:41 - Vital Signs Vital Signs: Last Vital Signs Temp 98.1 F 12/29/17 09:31 Pulse 88 12/29/17 09:31 Resp 24 12/29/17 09:31 BP 147/68 12/29/17 09:31 Pulse Ox 92 12/29/17 09:31 - Lungs Lungs: Clear Ascult./Percussion - Airway Airway: Non-obstructed - Cardiovascular Regular Rate - Mental Status Mental Status: Alert & Oriented, Answers Appropriately - Pain Pain Scale: 2 - Nausea Vomiting Nausea Vomiting: Not Present - Hydration Hydration: Ice chips - Discharge PostOp Status: Transfer Patient to floor
--- NOTE | 2017-12-29 10:11 | Pulmonology Progress Note ---
Date of Encounter: 12/30/17 Time of Encounter: 10:00 Assessment and Plan (1) Acute respiratory failure with hypoxia Current Visit: Yes Status: Acute Secondary to recurrent pneumonia complicated by asthma exacerbation I have reviewed the bronchoscopy which showed lot of frothy secretion mixed with some blood BAL was done in the right middle lobe and left upper lobe. (2) Multifocal pneumonia Current Visit: Yes Status: Acute Impression personally with recurrent pneumonia and other medications multifocal pneumonia with bilateral BAL bronchoscopy patient had frothy secretion but a lot of blood-tinged most likely due to bronchial inflammation with supratherapeutic INR to hold off the Coumadin tonight and will monitor the hemoptysis. Airway exam did not show any evidence of endobronchial lesions concerning for malignancy. (3) Asthma exacerbation Current Visit: Yes Status: Acute To continue the current management. Qualifiers: Asthma severity: moderate Asthma persistence: persistent Qualified Code(s): J45.41 - Moderate persistent asthma with (acute) exacerbation Subjective Principal diagnosis: Pneumonia Interval history: Patient does not have any new complaints patient is for bronchoscopy today Objective PUL Vital signs: Last Vital Signs Temp 97.5 F L 12/29/17 09:59 Pulse 72 12/29/17 09:59 Resp 23 12/29/17 09:59 BP 122/70 12/29/17 09:59 Pulse Ox 95 12/29/17 09:59 Auscultation: bilateral: clear Results - Laboratory Findings CBC and BMP: 12/29/17 03:03 12/29/17 03:03 ABG ABG pH 7.43 pH Units (7.32-7.45) 12/25/17 16:46 ABG pCO2 43 mmHg (35-45) 12/25/17 16:46 ABG pO2 83 mmHg (85-104) L 12/25/17 16:46 ABG O2 Saturation 96 % (95-98) 12/25/17 16:46 PT/INR, D-dimer PT 21.1 Seconds (9.4-12.1) H 12/29/17 03:03 Abnormal lab findings: Abnormal lab results RBC 3.72 M/mcL (3.82-4.97) L 12/29/17 03:03 Hgb 10.2 g/dL (11.5-15.4) L 12/29/17 03:03 Hct 33.2 % (35.3-44.9) L 12/29/17 03:03 MCH 27.4 pg (28.0-33.3) L 12/29/17 03:03 MCHC 30.7 g/dL (31.6-35.5) L 12/29/17 03:03 RDW 16.9 % (11.5-14.5) H 12/29/17 03:03 MPV 9.2 fL (9.4-12.4) L 12/29/17 03:03 Immature Gran % 4.8 % (0-4) H 12/29/17 03:03 ESR 30 mm/hr (0-15) H 12/27/17 19:23 PT 21.1 Seconds (9.4-12.1) H 12/29/17 03:03 ABG pO2 83 mmHg (85-104) L 12/25/17 16:46 ABG HCO3 29 mEq/L (21-27) H 12/25/17 16:46 ABG Total CO2 30 mEq/L (20-26) H 12/25/17 16:46 ABG Base Excess 4 mEq/L (-2 to 3) H 12/25/17 16:46 BUN 37 mg/dL (8-23) H 12/29/17 03:03 BUN/Creatinine Ratio 43 (6-26) H 12/29/17 03:03 Glucose 154 mg/dL (70-105) H 12/29/17 03:03 POC Glucose 147 mg/dL (70-99) H 12/28/17 20:00 Calculated Osmolality 306 (280-300) H 12/29/17 03:03 C-Reactive Protein 11 mg/L (Less than 10) H 12/27/17 19:23 - Clinical Findings Intake & Output: Intake & Output 12/28/17 12/29/17 12/29/17 23:59 07:59 15:59 Intake Total 240 / 240 120 / 120 Output Total 300 / 300 300 / 300 Balance -60 / -60 -180 / -180 Weight 108.9 kg Consult Discharge Plan - Plan Referrals: Aleksandar Strickland DO [Primary Care Provider] - 12/31/17 9:45 am
[2017-12-29] MEDS: Budesonide/Formoterol 160/4.5 1 PUFF INH IH SCH ×2 (11:23→23:44)
[2017-12-29] MEDS: Diltiazem CD (24hr) 180 MG CAPSULE PO SCH (11:27)
[2017-12-29] MEDS: Aspirin 81 MG TAB.CHEW PO SCH (11:28)
[2017-12-29] MEDS: predniSONE 20 MG TABLET PO SCH (11:28)
[2017-12-29] MEDS: Metoprolol XL (24 HR) Succ 25 MG TAB.ER.24H PO SCH (11:30)
[2017-12-29 11:51] LABS: Source of Body Fluid LUL BAL; Source of Body Fluid RML BAL
[2017-12-29 16:28] LABS: Appearance of Body Fluid Hazy (Clear)
[2017-12-29 16:29] LABS: Appearance of Body Fluid Cloudy (Clear); Volume of Body Fluid 14 mL; Volume of Body Fluid 19 mL
[2017-12-29] MEDS: Melatonin 3 MG TABLET PO SCH (22:14)
[2017-12-30] MEDS: Cefepime HCl 2,000 MG in Water for inj. (sterile) 20 ML 20 ML IVP SCH ×3 (02:16→16:30)
[2017-12-30 03:22] LABS: Basophils # 0.1 K/mcL (0.0-0.2); Basophils % 0.8 %; Hematocrit 33.7 % (35.3-44.9); Hemoglobin 10.5 g/dL (11.5-15.4); Lymphocytes # 0.5 K/mcL (0.6-4.6); Mean Corpuscular HGB Conc 31.2 g/dL (31.6-35.5); Mean Corpuscular Hemoglobin 27.9 pg (28.0-33.3); Mean Corpuscular Volume 89.6 fL (83.0-100.0); Mean Platelet Volume 9.4 fL (9.4-12.4); Monocytes # 0.4 K/mcL (0.0-1.3); Monocytes % 4.1 %; Neutrophils # 8.8 K/mcL (1.6-8.9); Platelet Count 265 K/mcL (140-400); Red Blood Count 3.76 M/mcL (3.82-4.97); Red Cell Distribution Width 16.5 % (11.5-14.5); Segmented Neutrophils % 83.1 %
[2017-12-30 03:38] LABS: BUN/Creatinine Ratio 43 (6-26); Blood Urea Nitrogen 30 mg/dL (8-23); Calcium 8.8 mg/dL (8.6-10.3); Carbon Dioxide 26 mEq/L (23-29); Chloride 103 mEq/L (98-107); Glucose 203 mg/dL (70-105); Magnesium 2.3 mg/dL (1.6-2.6); Osmolality,Calculated 296 (280-300); Phosphorous 3.6 mg/dL (2.7-4.5); Potassium 4.5 mEq/L (3.5-5.1); Sodium 137 mEq/L (136-145); eGFR For Non-African Americans > 60 (> 60)
[2017-12-30] MEDS: Ipratropium/Albuterol Neb 3 ML IH SCH ×5 (03:58→20:12)
[2017-12-30 04:03] LABS: Platelet Estimate Normal (Normal)
[2017-12-30] MEDS: Budesonide/Formoterol 160/4.5 1 PUFF INH IH SCH ×2 (07:32→20:11)
--- NOTE | 2017-12-30 08:01 | Internal Med Progress Note ---
Hospitalist Progress Note - Encounter Date of Encounter: 12/30/17 Time of Encounter: 08:00 - Exam Vitals: Temp Pulse Resp BP Pulse Ox 97.6 F 81 18 131/71 96 12/30/17 07:16 12/30/17 07:16 12/30/17 07:16 12/30/17 07:16 12/30/17 07:16 Exam: GENERAL: Pleasant female in no acute distress. She is alert and oriented. She answers questions appropriately and is cooperative with exam. HEENT: Atraumatic and normocephalic. Nasal canula in place. Moist mucosa. Erythema of posterior pharynx. Left tonsil is enlarged. Tenderness over bilateral maxillary sinuses. NECK: Tender submandibular lymphadenopathy greater on left. Trachea is midline with no thyromegaly appreciated. CARDIOVASCULAR: Regular rate and rhythm. S1 and S2 present. No murmurs, gallops or rubs. RESPIRATORY: CTA bilaterally. Intermittent wheezes present with cough. No accessory muscle use. GASTROINTESTINAL: Active bowel sounds present x 4 quadrants. Abdomen is soft, nondistended, and nontender. EXTREMITIES: Moderate bilateral edema present that is nonpitting and nontender. No clubbing or cyanosis. - Assessment and Plan (1) Acute respiratory failure with hypoxia Current Visit: Yes Status: Acute Assessment and Plan: Likely secondary to multifocal pneumonia and acute COPD exacerbation and asthma. Started on IV steroids, duonebs and symbicort and antibiotics with cefepime. Monitor oxygen levels and wean off as tolerated. CT angio showed evidence of multifocal pneumonia 12/30. Pt is s/p bronchoscopy showing a lot of frothy secretions. Pulmonary impression is that she has recurrent pneumonia with asthma exacerbation and will likely require oxygen on discharge. Per pulmonary observe for one more day for hemoptysis/bleeding. Obtain 2D echo and walk test (2) Multifocal pneumonia Current Visit: Yes Status: Acute Assessment and Plan: Ct chest showed eveidence of multifocal pneumonia. Likely bacterial HCAP. Obtain blood cultures, urine legionella and streptococcal antigen Continue IV cefepime (3) HTN (hypertension) Current Visit: No Status: Chronic Assessment and Plan: - Continue home medication of metoprolol 25mg PO QD (4) Atrial fibrillation Current Visit: No Status: Chronic Assessment and Plan: Patient underwent ablation in June of this year and had a loop recorder placed on 12/10/2017. She states that she has not had any incidents of atrial fibrillation since her ablation. On exam today, she is in normal sinus rhythm. - Continue home medication of diltiazem 360mg and warfarin (5) Acute sinusitis Current Visit: Yes Status: Acute Assessment and Plan: Patient reports sinus congestion and pressure that has been present for several months. She has tender left submandibular lymphadenopathy, and reports feeling subjectively feverish with occasional chills. - On cefepime (6) DVT prophylaxis Current Visit: No Status: Acute Assessment and Plan: - Continue coumadin therapy with pharmacy to dose to therapeutic INR - Time Spent with Patient Total time spent is greater than 50% in coordination of care (as documented) at patient's floor/unit and/or counseling patient: Internal Medicine: Result - Labs CBC & Chem 7: 12/30/17 02:54 12/30/17 02:54 Labs: Short CBC 12/30/17 Range/Units 02:54 WBC 10.6 (4.3-11.1) K/mcL Hgb 10.5 L (11.5-15.4) g/dL Hct 33.7 L (35.3-44.9) % Plt Count 265 (140-400) K/mcL Neutrophils # 8.8 (1.6-8.9) K/mcL BMP 12/30/17 02:54 Sodium 137 Potassium 4.5 Chloride 103 Carbon Dioxide 26 BUN 30 H Creatinine 0.70 Glucose 203 H Calcium 8.8 - ABG Interpretation ABG results: ABG ABG pH 7.43 pH Units (7.32-7.45) 12/25/17 16:46 ABG pCO2 43 mmHg (35-45) 12/25/17 16:46 ABG pO2 83 mmHg (85-104) L 12/25/17 16:46 ABG O2 Saturation 96 % (95-98) 12/25/17 16:46 PT/INR, D-dimer PT 21.1 Seconds (9.4-12.1) H 12/29/17 03:03 Consult Discharge Plan - Plan Referrals: Aleksandar Strickland DO [Primary Care Provider] - 12/31/17 9:45 am (3) HTN (hypertension) Qualifiers: Hypertension type: essential hypertension Qualified Code(s): I10 - Essential (primary) hypertension (4) Atrial fibrillation Qualifiers: Atrial fibrillation type: paroxysmal Qualified Code(s): I48.0 - Paroxysmal atrial fibrillation (5) Acute sinusitis Qualifiers: Sinusitis location: maxillary Recurrence: not specified as recurrent Qualified Code(s): J01.00 - Acute maxillary sinusitis, unspecified
[2017-12-30] MEDS: Insulin LISPRO 300 UNITS/3 ML VIAL SQ SCH ×4 (08:15→21:13)
[2017-12-30] MEDS: Metoprolol XL (24 HR) Succ 25 MG TAB.ER.24H PO SCH (08:54)
[2017-12-30] MEDS: predniSONE 20 MG TABLET PO SCH (08:54)
[2017-12-30] MEDS: Aspirin 81 MG TAB.CHEW PO SCH (08:54)
[2017-12-30] MEDS: Diltiazem CD (24hr) 180 MG CAPSULE PO SCH (08:54)
--- NOTE | 2017-12-30 11:16 | Pulmonology Progress Note ---
Date of Encounter: 12/30/17 Time of Encounter: 10:00 Assessment and Plan (1) Acute respiratory failure with hypoxia Current Visit: Yes Status: Acute Secondary to recurrent pneumonia complicated by asthma exacerbation the bronchoscopy which showed lot of frothy secretion mixed with some blood BAL was done in the right middle lobe and left upper lobe. So for the findings from BAL microbiological point of view is negative patient has inflamed airways patient will need oxygen on discharge please ascertain with exercise oximetry. Spoke with primary hospitalist To follow up at [place] [facility] in 4-6 weeks. (2) Multifocal pneumonia Current Visit: Yes Status: Acute Impression personally with recurrent pneumonia and other medications multifocal pneumonia with bilateral BAL bronchoscopy patient had frothy secretion but a lot of blood-tinged most likely due to bronchial inflammation with supratherapeutic INR to hold off the Coumadin tonight and will monitor the hemoptysis. Airway exam did not show any evidence of endobronchial lesions concerning for malignancy. 12/2017 for discharge home on 7 days of levofloxacin. (3) Asthma exacerbation Current Visit: Yes Status: Acute To continue the current management. To send home on albuterol nebulizer and Symbicort and a short steroid taper over 12 days. Qualifiers: Asthma severity: moderate Asthma persistence: persistent Qualified Code(s): J45.41 - Moderate persistent asthma with (acute) exacerbation Subjective Principal diagnosis: Pneumonia Interval history: Patient does not have any new complaints patient is for bronchoscopy today Objective PUL Vital signs: Last Vital Signs Temp 97.6 F 12/30/17 07:16 Pulse 81 12/30/17 07:16 Resp 24 12/30/17 07:32 BP 131/71 12/30/17 07:16 Pulse Ox 91 12/30/17 07:32 Auscultation: bilateral: clear Extremities: no edema Musculoskeletal: no deformities normal mental status, non-focal exam Results - Laboratory Findings CBC and BMP: 12/30/17 02:54 12/30/17 02:54 ABG ABG pH 7.43 pH Units (7.32-7.45) 12/25/17 16:46 ABG pCO2 43 mmHg (35-45) 12/25/17 16:46 ABG pO2 83 mmHg (85-104) L 12/25/17 16:46 ABG O2 Saturation 96 % (95-98) 12/25/17 16:46 PT/INR, D-dimer PT 21.1 Seconds (9.4-12.1) H 12/29/17 03:03 Abnormal lab findings: Abnormal lab results RBC 3.76 M/mcL (3.82-4.97) L 12/30/17 02:54 Hgb 10.5 g/dL (11.5-15.4) L 12/30/17 02:54 Hct 33.7 % (35.3-44.9) L 12/30/17 02:54 MCH 27.9 pg (28.0-33.3) L 12/30/17 02:54 MCHC 31.2 g/dL (31.6-35.5) L 12/30/17 02:54 RDW 16.5 % (11.5-14.5) H 12/30/17 02:54 Immature Gran % 7.0 % (0-4) H 12/30/17 02:54 Lymphocytes # 0.5 K/mcL (0.6-4.6) L 12/30/17 02:54 ESR 30 mm/hr (0-15) H 12/27/17 19:23 PT 21.1 Seconds (9.4-12.1) H 12/29/17 03:03 ABG pO2 83 mmHg (85-104) L 12/25/17 16:46 ABG HCO3 29 mEq/L (21-27) H 12/25/17 16:46 ABG Total CO2 30 mEq/L (20-26) H 12/25/17 16:46 ABG Base Excess 4 mEq/L (-2 to 3) H 12/25/17 16:46 BUN 30 mg/dL (8-23) H 12/30/17 02:54 BUN/Creatinine Ratio 43 (6-26) H 12/30/17 02:54 Glucose 203 mg/dL (70-105) H 12/30/17 02:54 POC Glucose 217 mg/dL (70-99) H 12/29/17 21:06 C-Reactive Protein 11 mg/L (Less than 10) H 12/27/17 19:23 B-Natriuretic Peptide 101 pg/mL (Less than 100) H 12/30/17 02:54 Fluid Appearance Cloudy (Clear) A 12/29/17 11:48 - Microbiology Findings Microbiology Findings: Microbiology, Last 48 Hours 12/29/17 11:48 Respiratory Culture - Preliminary Left Upper Lobe Lung 12/29/17 11:48 Respiratory Culture - Preliminary Right Middle Lobe Lung - Clinical Findings Intake & Output: Intake & Output 12/29/17 12/30/17 12/30/17 23:59 07:59 15:59 Intake Total 140 / 140 260 / 260 120 / 120 Output Total 350 / 350 360 / 360 Balance -210 / -210 -100 / -100 120 / 120 Weight 109.3 kg Consult Discharge Plan - Plan Referrals: Aleksandar Strickland DO [Primary Care Provider] - 12/31/17 9:45 am
[2017-12-30 11:42] LABS: INR 1.4; Prothrombin Time 16.1 Seconds (9.4-12.1)
[2017-12-30] MEDS: Melatonin 3 MG TABLET PO SCH (21:13)
[2017-12-31] MEDS: Ipratropium/Albuterol Neb 3 ML IH SCH ×4 (00:20→10:49)
[2017-12-31 03:44] LABS: Basophils # 0.1 K/mcL (0.0-0.2); Basophils % 0.6 %; Hematocrit 33.1 % (35.3-44.9); Hemoglobin 10.2 g/dL (11.5-15.4); Immature Granulocytes % 6.1 % (0-4); Lymphocytes # 0.7 K/mcL (0.6-4.6); Lymphocytes % 5.3 %; Mean Corpuscular HGB Conc 30.8 g/dL (31.6-35.5); Mean Corpuscular Hemoglobin 27.6 pg (28.0-33.3); Mean Corpuscular Volume 89.5 fL (83.0-100.0); Mean Platelet Volume 9.2 fL (9.4-12.4); Monocytes # 0.7 K/mcL (0.0-1.3); Monocytes % 5.8 %; Neutrophils # 10.2 K/mcL (1.6-8.9); Platelet Count 242 K/mcL (140-400); Red Cell Distribution Width 16.8 % (11.5-14.5); Segmented Neutrophils % 82.2 %
[2017-12-31 04:03] LABS: BUN/Creatinine Ratio 45 (6-26); Blood Urea Nitrogen 29 mg/dL (8-23); Calcium 8.3 mg/dL (8.6-10.3); Carbon Dioxide 28 mEq/L (23-29); Chloride 106 mEq/L (98-107); Glucose 152 mg/dL (70-105); Magnesium 2.2 mg/dL (1.6-2.6); Osmolality,Calculated 297 (280-300); Potassium 4.5 mEq/L (3.5-5.1); Sodium 139 mEq/L (136-145); eGFR For Non-African Americans > 60 (> 60)
[2017-12-31 04:24] LABS: Platelet Estimate Normal (Normal)
[2017-12-31 07:26] VITALS: BP 142/66
[2017-12-31] MEDS: Budesonide/Formoterol 160/4.5 1 PUFF INH IH SCH (07:27)
--- NOTE | 2017-12-31 07:48 | Discharge Summary ---
Orders not resulted at time of discharge: Pending orders 12/26/17 08:19 Culture,Blood [BC] Routine 12/27/17 19:23 CCP IgG Routine 12/28/17 08:59 BK IgG KAI rflx IFA Routine 12/29/17 09:28 Cytology [PTH] Routine 12/29/17 09:42 Cytology [PTH] Routine 12/29/17 11:48 AFB Culture, Respiratory [TB] Routine AFB Culture, Respiratory [TB] Routine AFB Smear [TB] Routine AFB Smear [TB] Routine Culture,Respiratory [RM] Routine Culture,Respiratory [RM] Routine Fungal Culture [MYC] Routine Fungal Culture [MYC] Routine Legionella Culture [RM] Routine Legionella Culture [RM] Routine 12/30/17 11:48 Herpes Simplex PCR Body Fl Routine Herpes Simplex PCR Body Fl Routine 01/01/18 04:00 Basic Metabolic Panel AM 0400 CBC [Complete Blood Count] [HEME] AM 0400 Magnesium AM 0400 Phosphorous AM 0400 Date of Encounter: 12/31/17 Time of Encounter: 07:40 - Discharge Diagnosis (1) Acute respiratory failure with hypoxia Priority: Primary Status: Acute Assessment and Plan: 67 year old female with a history of asthma, atrial fibrillation s/p ablation in June 2017, hypertension, and breast cancer. She presented to the ED due to worsening shortness of breath that initially began several months ago. At that time, she attributed her SOB to allergies; however, she was diagnosed with pneumonia early this month, which was treated with a 10-day course of antibiotics. She recently completed a second antibiotic course of levaquin due to persistent SOB and productive cough. She states that she felt like she had more energy while taking antibiotics; however, she continued to have a cough throughout the course of her antibiotic therapy. She says that she "cannot catch her breath" and states that she feels like she's going to "pass out'. She has long-acting and rescue inhalers, and states that she has had to use her rescue inhaler more frequently. She reports subjective fevers/chills x 1 week. She was assessed with acute hypoxic respiratory failure likely secondary to multifocal pneumonia and acute asthma and COPD exacerbation . She was started on IV steroids, duonebs and symbicort and antibiotics with cefepime. She had a CT angio done showing evidence of multifocal pneumonia and multifocal airspace disease. She was seen by pulmonary and had a bronchoscopy done showing a lot of frothy secretions and pneumonia with airway inflammation. Pulmonary's impression is that she has recurrent pneumonia with asthma exacerbation. She continues to be hypoxic and will be discharged home on oxygen. She is complete a 12 day course of steroids and a 7 day course of levaquin. She was discharged in a stable condition (2) Multifocal pneumonia Priority: Primary Status: Acute (3) HTN (hypertension) Priority: Primary Status: Chronic Qualifiers: Hypertension type: essential hypertension Qualified Code(s): I10 - Essential (primary) hypertension (4) Atrial fibrillation Priority: Primary Status: Chronic Qualifiers: Atrial fibrillation type: paroxysmal Qualified Code(s): I48.0 - Paroxysmal atrial fibrillation (5) Acute sinusitis Priority: Primary Status: Acute Qualifiers: Sinusitis location: maxillary Recurrence: not specified as recurrent Qualified Code(s): J01.00 - Acute maxillary sinusitis, unspecified (6) DVT prophylaxis Priority: Primary Status: Acute Hospital course: Ms. Merida is a 67 year old female - Time Spent with Patient Total time spent providing and/or coordinating discharge services: - Discharge Medications Prescriptions: Budesonide/Formoterol 160/4.5 [Symbicort 160/4.5] 2 puff IH BIDR 30 Days #1 inh GuaiFENesin ER [Mucinex] 600 mg PO BID PRN 30 Days #30 tbbp.12hr PRN Reason: Cough Ipratropium/Albuterol Sulfate [Combivent Respimat Inhal [place]] 4 gm IH Q4H 30 Days #1 mist.inhal levoFLOXacin [Levaquin] 750 mg PO DAILY 7 Days #7 tablet predniSONE [PredniSONE] 10 mg PO DAILY 4 Days #4 tablet predniSONE [PredniSONE] 40 mg PO DAILY 4 Days #8 tablet predniSONE [PredniSONE] 20 mg PO DAILY 4 Days #4 tablet Home Medications: Aspirin 81 mg PO DAILY 11/10/14 [History] Cinnamon Bark [Cinnamon] 1,000 mg PO DAILY 10/15/15 [History] Psyllium Husk [Daily Fiber] 2 tab PO DAILY 10/15/15 [History] Omeprazole [PriLOSEC] 20 mg PO DAILY 11/29/15 [History] Acetaminophen [Tylenol] 500 mg PO Q6HR PRN 08/25/16 [History] Calcium Carbonate [Calcium] 600 mg PO DAILY 05/28/17 [History] Fluticasone Furoate [Arnuity Ellipta] 200 mcg IH DAILY 05/28/17 [History] Melatonin 5 mg PO HS 05/28/17 [History] Diltiazem CD (24hr) [Cardizem CD] 360 mg PO DAILY #30 cap.er.24h 06/25/17 [Rx] Metoprolol XL (24 HR) Succ [Toprol Xl] 25 mg PO DAILY #30 tab.er.24h 06/25/17 [Rx] Furosemide [Lasix] 40 mg PO DAILY PRN 07/26/17 [History] Ferrous Sulfate [High Potency Iron] 27 mg PO DAILY 12/10/17 [History] Rosuvastatin [Crestor] 10 mg PO HS 12/10/17 [History] Warfarin [Coumadin] 2.5 mg PO SUMOTUTHFRSA 12/24/17 [History] Budesonide/Formoterol 160/4.5 [Symbicort 160/4.5] 2 puff IH BIDR 30 Days #1 inh 12/31/17 [Rx] GuaiFENesin ER [Mucinex] 600 mg PO BID PRN 30 Days #30 tbbp.12hr 12/31/17 [Rx] Ipratropium/Albuterol Sulfate [Combivent Respimat Inhal [place]] 4 gm IH Q4H 30 Days #1 mist.inhal 12/31/17 [Rx] levoFLOXacin [Levaquin] 750 mg PO DAILY 7 Days #7 tablet 12/31/17 [Rx] predniSONE [PredniSONE] 10 mg PO DAILY 4 Days #4 tablet 12/31/17 [Rx] predniSONE [PredniSONE] 20 mg PO DAILY 4 Days #4 tablet 12/31/17 [Rx] predniSONE [PredniSONE] 40 mg PO DAILY 4 Days #8 tablet 12/31/17 [Rx] Allergies/Adverse Reactions: Allergy/AdvReac Type Severity Reaction Status Date / Time adhesive tape Allergy Hives Verified 12/10/17 12:06 Date of admission: 12/27/17 14:31 Primary care physician: Aleksandar Strickland DO Consults: 12/27/17 07:37 Consult to Pulmonology [CONS] Routine Consulting Provider: [facility] [place] Reason for Consult: Persistent hypoxic respiratory failure Call Completed: Yes - Constitutional Vitals: Temp Pulse Resp BP Pulse Ox 97.7 F 82 16 142/66 99 12/31/17 04:00 12/31/17 07:23 12/31/17 07:27 12/31/17 07:23 12/31/17 07:27 Exam: GENERAL: Pleasant female in no acute distress. She is alert and oriented. She answers questions appropriately and is cooperative with exam. HEENT: Atraumatic and normocephalic. Nasal canula in place. Moist mucosa. Erythema of posterior pharynx. Left tonsil is enlarged. Tenderness over bilateral maxillary sinuses. NECK: Tender submandibular lymphadenopathy greater on left. Trachea is midline with no thyromegaly appreciated. CARDIOVASCULAR: Regular rate and rhythm. S1 and S2 present. No murmurs, gallops or rubs. RESPIRATORY: CTA bilaterally. Intermittent wheezes present with cough. No accessory muscle use. GASTROINTESTINAL: Active bowel sounds present x 4 quadrants. Abdomen is soft, nondistended, and nontender. EXTREMITIES: Moderate bilateral edema present that is nonpitting and nontender. No clubbing or cyanosis. - Patient Status Disposition: Home, Self-Care Condition: Good - Discharge Instructions Instructions: Decongestant/Expectorant (By mouth), Prednisone (By mouth), Levofloxacin (By mouth), Budesonide/Formoterol (By breathing), Atrial Fibrillation (DC), Acute Respiratory Distress Syndrome (DC), Using Oxygen at Home (DC), Chronic Hypertension (DC), Pneumonia (DC) Follow Up With: Aleksandar Strickland DO [Primary Care Provider] - 01/01/18 12:00 pm Additional Instructions: patient has a coumadin clinic appointment on 01-03 at 1:30
[2017-12-31 08:06] LABS: ANA IgG by ELISA NONE DETECTED (None Detected)
[2017-12-31] MEDS: Metoprolol XL (24 HR) Succ 25 MG TAB.ER.24H PO SCH (08:31)
[2017-12-31] MEDS: Cefepime HCl 2,000 MG in Water for inj. (sterile) 20 ML 20 ML IVP SCH ×2 (08:31)
[2017-12-31] MEDS: Diltiazem CD (24hr) 180 MG CAPSULE PO SCH (08:31)
[2017-12-31] MEDS: Aspirin 81 MG TAB.CHEW PO SCH (08:31)
[2017-12-31] MEDS: predniSONE 20 MG TABLET PO SCH (08:31)
[2017-12-31] MEDS: Insulin LISPRO 300 UNITS/3 ML VIAL SQ SCH (08:33)
[2018-01-01 15:58] LABS: HSV Source BAL LUL; HSV Source BAL RML
== END 2017-12-31 14:09 | disposition home or self-care (01) | DRG 193 ==
LOC: EMEROOARM 17:08 → 2NENU 17:08 → SUATTDRO 21:29 → 2NENU 22:13
PROVIDERS: ADMIT Pediatrics; ATTEND Student in an Organized Health Care Education/Training Program

== ENCOUNTER 2018-01-28 11:41 | Inpatient (IN) ==
[2018-01-28] MEDS ORDERED: Ipratropium/Albuterol Neb 3 ML IH ONE (11:48)
[2018-01-28] MEDS ORDERED: methylPREDNISolone 125 MG/2 ML VIAL IVP ONE (11:54)
[2018-01-28] MEDS ORDERED: Isovue-370 500 ML INFUS..BTL IV ONE (11:54)
--- NOTE | 2018-01-28 12:05 | Emergency Department Note ---
Disposition Clinical Impression: Asthma exacerbation, Community acquired pneumonia Disposition: Admitted As Inpatient Condition: Fair General Adult HPI - General Chief complaint: ED Shortness of Breath/Dyspnea Stated complaint: Possible pneumonia Time Seen by Provider: 01/28/18 11:46 Nursing Notes Reviewed: Yes Vital Signs Reviewed: Yes - History of Present Illness Pain Scale: 4 - Related Data Home Medications Medication Instructions Recorded Confirmed RX: Aspirin 81 mg PO DAILY 11/10/14 01/28/18 RX: Psyllium Husk [Daily Fiber] 2 tab PO DAILY 10/15/15 01/28/18 RX: Omeprazole [PriLOSEC] 20 mg PO DAILY 11/29/15 01/28/18 RX: Acetaminophen [Tylenol] 500 mg PO Q6HR PRN 08/25/16 01/28/18 RX: Calcium Carbonate [Calcium] 600 mg PO DAILY 05/28/17 01/28/18 RX: Fluticasone Furoate [Arnuity 1 puff IH QAM 05/28/17 01/28/18 Ellipta] RX: Melatonin 5 mg PO HS PRN 05/28/17 01/28/18 RX: Furosemide [Lasix] 40 mg PO DAILY PRN 07/26/17 01/28/18 RX: Rosuvastatin [Crestor] 10 mg PO HS 12/10/17 01/28/18 RX: Warfarin [Coumadin] 2.5 mg PO MOTUWETHFRSA 12/24/17 01/28/18 Albuterol Sulfate [Ventolin Hfa] 2 puff PO Q6H PRN 01/28/18 01/28/18 Previous Rx's Medication Instructions Recorded RX: Diltiazem CD (24hr) [Cardizem 360 mg PO DAILY #30 cap.er.24h 06/25/17 CD] RX: Metoprolol XL (24 HR) Succ 25 mg PO DAILY #30 tab.er.24h 06/25/17 [Toprol Xl] Allergies Allergy/AdvReac Type Severity Reaction Status Date / Time adhesive tape Allergy Hives Verified 01/28/18 11:45 Past Medical History - Past Medical History Medical history: Reports: asthma, atrial fibrillation, cancer, hypertension Surgical history: Reports: breast surgery, cancer surgery, hysterectomy Psychiatric history: Reports: no psych history 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 - Social History Smoking Status: Never smoker Smokeless Tobacco Status: No Alcohol use: Reports: none Drug use: Reports: none Course Vital Signs Temperature 98.6 F 01/28/18 11:43 Pulse Rate 101 01/28/18 11:43 Respiratory Rate 22 01/28/18 11:43 Blood Pressure 174/76 01/28/18 11:43 O2 Sat by Pulse Oximetry 89 01/28/18 11:43 Temperature 98.6 F 01/28/18 12:01 Pulse Rate 99 01/28/18 13:32 Respiratory Rate 23 01/28/18 13:32 Blood Pressure 155/64 01/28/18 13:32 O2 Sat by Pulse Oximetry 96 01/28/18 13:51 Oxygen Delivery Oxygen Delivery Nasal Cannula Medical Decision Making - MDM Narrative Medical decision making narrative: 1328 hrs.: Patient's not febrile, not tachycardic, lactates normal, white count is not elevated. I do not think this is a septic picture. Waiting on chest x-ray and remaining labs. 1434 hrs.: Patient's CT is back and shows developing pneumonia.we will speak with pulmonary due to the fact that she had a bonchscopy done which was negative for organisms; we will try to determine what she was on previously and she cannot remember and bring her into the hospital. - Lab Data Result diagrams: 01/28/18 12:45 01/28/18 12:45 Lab Results 01/28/18 01/28/18 01/28/18 Range/Units 11:57 12:45 12:45 WBC 9.6 (4.3-11.1) K/mcL RBC 3.77 L (3.82-4.97) M/mcL Hgb 10.3 L (11.5-15.4) g/dL Hct 32.7 L (35.3-44.9) % MCV 86.7 (83.0-100.0) fL MCH 27.3 L (28.0-33.3) pg MCHC 31.5 L (31.6-35.5) g/dL RDW 15.6 H (11.5-14.5) % Plt Count 283 (140-400) K/mcL MPV 8.5 L (9.4-12.4) fL Immature Gran % 0.9 (0-4) % Seg Neutrophils % 83.3 % Lymphocytes % 7.7 % Monocytes % 7.6 % Eosinophils % 0.2 % Basophils % 0.3 % Neutrophils # 8.0 (1.6-8.9) K/mcL Lymphocytes # 0.7 (0.6-4.6) K/mcL Monocytes # 0.7 (0.0-1.3) K/mcL Eosinophils # 0.0 (0.0-0.6) K/mcL Basophils # 0.0 (0.0-0.2) K/mcL PT 22.2 H (9.4-12.1) Seconds INR 2.0 APTT 35.4 (26.0-36.0) Seconds Sodium 141 (136-145) mEq/L Potassium 3.8 (3.5-5.1) mEq/L Chloride 106 (98-107) mEq/L Carbon Dioxide 27 (23-29) mEq/L BUN 16 (8-23) mg/dL Creatinine 0.66 (0.60-1.20) mg/dL Est GFR ( Amer) > 60 (> 60) Est GFR (Non-Af Amer) > 60 (> 60) BUN/Creatinine Ratio 24 (6-26) Glucose 144 H (70-105) mg/dL Calculated Osmolality 296 (280-300) Lactic Acid (0.5-2.2) mmol/L Calcium 8.3 L (8.6-10.3) mg/dL Troponin I < 0.03 (< 0.04) ng/mL B-Natriuretic Peptide (Less than 100) pg/mL 01/28/18 01/28/18 Range/Units 12:45 12:45 WBC (4.3-11.1) K/mcL RBC (3.82-4.97) M/mcL Hgb (11.5-15.4) g/dL Hct (35.3-44.9) % MCV (83.0-100.0) fL MCH (28.0-33.3) pg MCHC (31.6-35.5) g/dL RDW (11.5-14.5) % Plt Count (140-400) K/mcL MPV (9.4-12.4) fL Immature Gran % (0-4) % Seg Neutrophils % % Lymphocytes % % Monocytes % % Eosinophils % % Basophils % % Neutrophils # (1.6-8.9) K/mcL Lymphocytes # (0.6-4.6) K/mcL Monocytes # (0.0-1.3) K/mcL Eosinophils # (0.0-0.6) K/mcL Basophils # (0.0-0.2) K/mcL PT (9.4-12.1) Seconds INR APTT (26.0-36.0) Seconds Sodium (136-145) mEq/L Potassium (3.5-5.1) mEq/L Chloride (98-107) mEq/L Carbon Dioxide (23-29) mEq/L BUN (8-23) mg/dL Creatinine (0.60-1.20) mg/dL Est GFR ( Amer) (> 60) Est GFR (Non-Af Amer) (> 60) BUN/Creatinine Ratio (6-26) Glucose (70-105) mg/dL Calculated Osmolality (280-300) Lactic Acid 0.8 (0.5-2.2) mmol/L Calcium (8.6-10.3) mg/dL Troponin I (< 0.04) ng/mL B-Natriuretic Peptide 50 (Less than 100) pg/mL Attestation Statement - Attestation Attestation: This documentation is done with the assistance of Dragon dictation. Despite e fforts made to ensure accuracy, there may be inaccuracies in ad operations coordinator or spelling and typographical errors. I examined this patient and my medical decision-making was reviewed with the Resident Physician. I agree with the documented findings, disposition and treatment plan as described except to the extent set forth below. Patient seen and evaluated today by Dr. Prather and myself, I agree with his evaluation and management plan, I supervised care the patient's stay. Patient presents today with cough she thinks she has pneumonia. Her oxygen saturations were low. She is on oxygen at home. She says that she did not require oxygen to this last time when she had "double pneumonia". Looking back and looks sick she had a pneumonia however her bronchoscopy showed negative for Legionella negative for strep negative for fungal and negative for acid-fast bacilli. Patient does sound rhonchorous on exam here. Rented chest x-ray labs breathing treatments and reassess. She may need admission.
--- NOTE | 2018-01-28 13:00 | Emergency Department Note ---
Disposition Clinical Impression: Asthma exacerbation Qualifiers: Asthma severity: mild Asthma persistence: unspecified Qualified Code(s): J45.901 - Unspecified asthma with (acute) exacerbation Community acquired pneumonia Qualifiers: Laterality: unspecified laterality Qualified Code(s): J18.9 - Pneumonia, unspecified organism Disposition: Admitted As Inpatient Condition: Fair Referrals: Aleksandar Strickland DO [Primary Care Provider] - Forms: ED Satisfaction Letter Time of Disposition: 15:39 SOB HPI - General Chief Complaint: ED Shortness of Breath/Dyspnea Stated Complaint: Possible pneumonia Time Seen by Provider: 01/28/18 11:46 Source: patient Mode of arrival: ambulatory Limitations: no limitations Nursing Notes Reviewed: Yes Vital Signs Reviewed: Yes - History of Present Illness 59-year-old male presents to the emergency department complaining of shortness of breath, cough. She recently was admitted approximately 3 weeks ago with a similar pneumonia did go home on oral antibiotics and did complete that full course. She did have IVN box while she was here. Patient said that she was feeling better a little bit after leaving the hospital then slowly got worse. She did not need oxygen prior to being hospitalized afterwards now she really requires 2-3 L of oxygen all the time while at home. She did have a bronchoscopy done here in the hospital but there was no cultures that were positive this is also due to she had a little bit of blood-tinged sputum. She again is having some blood-tinged sputum as well as now. She has not had any fevers. She has continued cough. There is no abdominal pain. Patient otherwise is not having any complaints at this time. She said that she may have had contact with someone that was positive with Legionella approximate one week ago but has not had any other complaints otherwise. She has no nausea or vomiting. Patient otherwise has no complaints including fevers, chills, nausea, vomiting, headaches, blurry vision, neck pain, back pain, chest pain, abdominal pain, pain or tingling going down the arms or legs or any generalized weakness at this time there is no changes in bowel movement or pain with urination. - Related Data Home Medications Medication Instructions Recorded Confirmed Aspirin 81 mg PO DAILY 11/10/14 12/24/17 Cinnamon Bark [Cinnamon] 1,000 mg PO DAILY 10/15/15 12/24/17 Psyllium Husk [Daily Fiber] 2 tab PO DAILY 10/15/15 12/24/17 Omeprazole [PriLOSEC] 20 mg PO DAILY 11/29/15 12/24/17 Acetaminophen [Tylenol] 500 mg PO Q6HR PRN 08/25/16 12/24/17 Calcium Carbonate [Calcium] 600 mg PO DAILY 05/28/17 12/24/17 Fluticasone Furoate [Arnuity 200 mcg IH DAILY 05/28/17 12/24/17 Ellipta] Melatonin 5 mg PO HS 05/28/17 12/24/17 Furosemide [Lasix] 40 mg PO DAILY PRN 07/26/17 12/24/17 Ferrous Sulfate [High Potency Iron] 27 mg PO DAILY 12/10/17 12/24/17 Rosuvastatin [Crestor] 10 mg PO HS 12/10/17 12/24/17 Warfarin [Coumadin] 2.5 mg PO SUMOTUTHFRSA 12/24/17 12/24/17 Previous Rx's Medication Instructions Recorded Diltiazem CD (24hr) [Cardizem CD] 360 mg PO DAILY #30 cap.er.24h 06/25/17 Metoprolol XL (24 HR) Succ [Toprol 25 mg PO DAILY #30 tab.er.24h 06/25/17 Xl] Budesonide/Formoterol 160/4.5 2 puff IH BIDR 30 Days #1 inh 12/31/17 [Symbicort 160/4.5] GuaiFENesin ER [Mucinex] 600 mg PO BID PRN 30 Days #30 12/31/17 tbbp.12hr Ipratropium/Albuterol Sulfate 4 gm IH Q4H 30 Days #1 mist.inhal 12/31/17 [Combivent Respimat Inhal [place]] Allergies Allergy/AdvReac Type Severity Reaction Status Date / Time adhesive tape Allergy Hives Verified 01/28/18 11:45 All systems ED: reviewed and negative except as stated. Review of Systems: As Per HPI Past Medical History - Past Medical History Attestation: Yes The following information was validated with the patient. 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 GENERAL history - Social History Smoking Status: Never smoker Smokeless Tobacco Status: No Alcohol use: Reports: none Drug use: Reports: none Physical Exam - General Limitations: no limitations General appearance: alert, in no apparent distress - Head Head exam: atraumatic, normocephalic, normal inspection - Eye Eye exam: Present: normal appearance, PERRL, EOMI - ENT ENT exam: normal exam, normal oropharynx, mucous membranes moist - Neck Neck exam: Present: normal inspection, full ROM, trachea midline - Chest Chest inspection: Present: normal inspection, symmetric chest wall rise - Respiratory Respiratory exam: Present: wheezes, accessory muscle use, other (Mild rhonchi b ilaterally in the bases mainly) - Cardiovascular Cardiovascular exam: Present: regular rate, normal rhythm, normal heart sounds - Abdominal Exam Abdominal exam: Present: soft, Non-Tender, normal bowel sounds. Absent: tend erness, distention, guarding, rebound, rigidity - Extremities Exam Extremities exam: Present: normal inspection, full ROM. Absent: tenderness, pedal edema - Back Exam Back exam: Present: normal inspection, full ROM. Absent: tenderness, CVA tenderness (R), CVA tenderness (L) - Neurological Exam Neurological exam: Present: alert, oriented X3 - Skin Skin exam: Present: warm, dry, intact, normal color Course Course Narrative: We will get chest x-ray basic labs including BMP, CBC will also get Legionella as well as blood cultures and lactate. We will give patient DuoNeb's as well as Solu-Medrol here in the emergency department. Disposition is pending. Vital Signs Temperature 98.6 F 01/28/18 11:43 Pulse Rate 101 01/28/18 11:43 Respiratory Rate 22 01/28/18 11:43 Blood Pressure 174/76 01/28/18 11:43 O2 Sat by Pulse Oximetry 89 01/28/18 11:43 Temperature 98.6 F 01/28/18 12:01 Pulse Rate 99 01/28/18 13:32 Respiratory Rate 23 01/28/18 13:32 Blood Pressure 155/64 01/28/18 13:32 O2 Sat by Pulse Oximetry 96 01/28/18 13:51 Oxygen Delivery Oxygen Delivery Nasal Cannula Shortness of Breath/Dyspnea - MDM Narrative Medical decision making narrative: 59-year-old male presented here shortness of breath. She does have an extensive history as she has been in and out of the hospital over the last month for the pneumonia. She was seen here approximately 2 weeks ago for pneumonia sent home on Levaquin and she was getting cefepime she was in the hospital. Prior to that she failed outpatient treatment. She had all of her bronchoscopy cultures as well as blood cultures were negative so there where there was no organism that they were treating. Patient did come back again with another pneumonia based on CT angiogram. Patient does not have a leukocytosis but due to her continued pneumonia and continued to fail outpatient treatment and her oxygen need of 3 L of oxygen while home and as well as here to keep saturations above 92% we felt t hat admission was necessary. I spoke with the on-call template layout worker Dr. Carlton who does remember the patient and he recommended starting Zosyn on the patient as well as getting an MRSA swab as there is unknown source for patient's pneumonia. I ordered both of these. I then spoke with the [facility] pitalist Dr. Griffith at 1535 who agreed to admit the patient to their service for further evaluation. Patient is stable at this time. Chest X-Ray 01/28/18 11:48 IMPRESSION: 1. Increasing bilateral interstitial opacities concerning for pulmonary edema. 2. Probable superimposed bibasilar atelectasis. Underlying pneumonia is not excluded. D/ / Quang Soni MD / Quang Soni MD Interpreting Provider: Quang Soni MD Chest CTA 01/28/18 11:54 IMPRESSION: 1. No findings of pulmonary embolism. 2. Persistent partial collapse of the right middle and right lower lobes with superimposed air bronchograms suspicious for pneumonia. 3. Increased interstitial edema or pneumonia. 4. New patchy areas of nodular consolidative opacity may represent developing alveolar edema or multifocal pneumonia. 5. Trace right pleural effusion. D/ / Arun Arguelles MD / Arun Arguelles MD Interpreting Provider: Arun Arguelles MD - Medical Records Medical records reviewed: Yes I reviewed the patient's medical records. - Lab Data Lab results reviewed: Yes I reviewed the patient's lab results. Result diagrams: 01/28/18 12:45 01/28/18 12:45 Lab Results 01/28/18 01/28/18 01/28/18 Range/Units 11:57 12:45 12:45 WBC 9.6 (4.3-11.1) K/mcL RBC 3.77 L (3.82-4.97) M/mcL Hgb 10.3 L (11.5-15.4) g/dL Hct 32.7 L (35.3-44.9) % MCV 86.7 (83.0-100.0) fL MCH 27.3 L (28.0-33.3) pg MCHC 31.5 L (31.6-35.5) g/dL RDW 15.6 H (11.5-14.5) % Plt Count 283 (140-400) K/mcL MPV 8.5 L (9.4-12.4) fL Immature Gran % 0.9 (0-4) % Seg Neutrophils % 83.3 % Lymphocytes % 7.7 % Monocytes % 7.6 % Eosinophils % 0.2 % Basophils % 0.3 % Neutrophils # 8.0 (1.6-8.9) K/mcL Lymphocytes # 0.7 (0.6-4.6) K/mcL Monocytes # 0.7 (0.0-1.3) K/mcL Eosinophils # 0.0 (0.0-0.6) K/mcL Basophils # 0.0 (0.0-0.2) K/mcL PT 22.2 H (9.4-12.1) Seconds INR 2.0 APTT 35.4 (26.0-36.0) Seconds Sodium 141 (136-145) mEq/L Potassium 3.8 (3.5-5.1) mEq/L Chloride 106 (98-107) mEq/L Carbon Dioxide 27 (23-29) mEq/L BUN 16 (8-23) mg/dL Creatinine 0.66 (0.60-1.20) mg/dL Est GFR ( Amer) > 60 (> 60) Est GFR (Non-Af Amer) > 60 (> 60) BUN/Creatinine Ratio 24 (6-26) Glucose 144 H (70-105) mg/dL Calculated Osmolality 296 (280-300) Lactic Acid (0.5-2.2) mmol/L Calcium 8.3 L (8.6-10.3) mg/dL Troponin I < 0.03 (< 0.04) ng/mL B-Natriuretic Peptide (Less than 100) pg/mL 01/28/18 01/28/18 Range/Units 12:45 12:45 WBC (4.3-11.1) K/mcL RBC (3.82-4.97) M/mcL Hgb (11.5-15.4) g/dL Hct (35.3-44.9) % MCV (83.0-100.0) fL MCH (28.0-33.3) pg MCHC (31.6-35.5) g/dL RDW (11.5-14.5) % Plt Count (140-400) K/mcL MPV (9.4-12.4) fL Immature Gran % (0-4) % Seg Neutrophils % % Lymphocytes % % Monocytes % % Eosinophils % % Basophils % % Neutrophils # (1.6-8.9) K/mcL Lymphocytes # (0.6-4.6) K/mcL Monocytes # (0.0-1.3) K/mcL Eosinophils # (0.0-0.6) K/mcL Basophils # (0.0-0.2) K/mcL PT (9.4-12.1) Seconds INR APTT (26.0-36.0) Seconds Sodium (136-145) mEq/L Potassium (3.5-5.1) mEq/L Chloride (98-107) mEq/L Carbon Dioxide (23-29) mEq/L BUN (8-23) mg/dL Creatinine (0.60-1.20) mg/dL Est GFR ( Amer) (> 60) Est GFR (Non-Af Amer) (> 60) BUN/Creatinine Ratio (6-26) Glucose (70-105) mg/dL Calculated Osmolality (280-300) Lactic Acid 0.8 (0.5-2.2) mmol/L Calcium (8.6-10.3) mg/dL Troponin I (< 0.04) ng/mL B-Natriuretic Peptide 50 (Less than 100) pg/mL - Radiology Data Radiology results reviewed: Yes I reviewed the patient's radiology results. - EKG Data EKG attestation: Yes I reviewed and interpreted this EKG. EKG results narrative: EKG done at 1154 review myself and the attending shows sinus rhythm a rate of 96, [place] interval 163, QRS 90, QTC 436. There is no acute ST changes no acute T- wave changes no other signs of ischemia. No signs of hypertrophy, heart strain, heart per to the or heart block. No WPW/Brugada/HOCM. Otherwise this EKG is unchanged when compared with old one done on 12/24/17
[2018-01-28 13:08] LABS: Basophils % 0.3 %; Eosinophils % 0.2 %; Hematocrit 32.7 % (35.3-44.9); Hemoglobin 10.3 g/dL (11.5-15.4); Immature Granulocytes % 0.9 % (0-4); Lymphocytes # 0.7 K/mcL (0.6-4.6); Lymphocytes % 7.7 %; Mean Corpuscular HGB Conc 31.5 g/dL (31.6-35.5); Mean Corpuscular Hemoglobin 27.3 pg (28.0-33.3); Mean Corpuscular Volume 86.7 fL (83.0-100.0); Mean Platelet Volume 8.5 fL (9.4-12.4); Monocytes # 0.7 K/mcL (0.0-1.3); Monocytes % 7.6 %; Platelet Count 283 K/mcL (140-400); Red Blood Count 3.77 M/mcL (3.82-4.97); Red Cell Distribution Width 15.6 % (11.5-14.5); Segmented Neutrophils % 83.3 %
[2018-01-28 13:16] LABS: Prothrombin Time 22.2 Seconds (9.4-12.1)
[2018-01-28 13:19] LABS: Activated Partial Thrombo Time 35.4 Seconds (26.0-36.0)
[2018-01-28 13:25] LABS: Troponin I < 0.03 ng/mL (< 0.04)
[2018-01-28 13:27] LABS: BUN/Creatinine Ratio 24 (6-26); Blood Urea Nitrogen 16 mg/dL (8-23); Calcium 8.3 mg/dL (8.6-10.3); Carbon Dioxide 27 mEq/L (23-29); Chloride 106 mEq/L (98-107); Glucose 144 mg/dL (70-105); Osmolality,Calculated 296 (280-300); Potassium 3.8 mEq/L (3.5-5.1); Sodium 141 mEq/L (136-145); eGFR For Non-African Americans > 60 (> 60)
[2018-01-28] MEDS ORDERED: Piperacillin/Tazobactam 3.375 GM in Water for inj. (sterile) 20 ML 20 ML IVP ONE (15:28)
[2018-01-28] MEDS ORDERED: Naloxone 0.4 MG/ML INJ IVP PRN (16:18)
--- NOTE | 2018-01-28 16:29 | Internal Med History&Physical ---
Date of Encounter: 01/28/18 Time of Encounter: 16:22 Internal Medicine - H&P: HPI Chief complaint: Shortness of breath, productive cough Admitted From: Home Plans for Post Hospital Care: at Home History of present illness: Ms. Merida is a 67 year old female patient with history of A. fib on Coumadin status post radioablation and is on droop recorder at present, recent pneumonia 3-4 weeks ago and got discharge on Levaquin with 2 L oxygen at rest and 3 L on ambulation but has been requiring more oxygen and last to 3 days presented to emergency room with worsening of shortness of breath and whitish to yellow is productive a sputum that has been worsening and last 5-6 days with slight tinge of blood noticed today therefore patient got concerned and decided to come to ER. In ER CT angiogram with no PE but multifocal pneumonia with persistent right lower and middle lobe opacity and increased interstitial edema but normal white count. ER physician talked to on-call pulmonologists who advised Zosyn and MRSA nasal swab to decide its coverages. ER physician called on-call hospitalist for inpatient admission with diagnosis of recurrent with worsening finding of multifocal pneumonia. Patient complains of fever, chills, nausea, night sweats, shortness of breath, cough, fatigue, generalized weakness, mild intermittent diarrhea for last 2 days but denies headache dizziness chest pain tingling numbness motor weakness. Patient has chronic urinary incontinence Past Med Surg Social Fam HX - Past Medical History Medical history: asthma, atrial fibrillation, cancer, hypertension Additional medical history: Breast CA Psychiatric history: no psych history - Past Surgical History Surgical History: breast surgery, cancer surgery, hysterectomy Additional surgical history: cardiac ablation, L mastectomy, LOOP - Social History Smoking Status: Never smoker Smokeless Tobacco Status: No Alcohol use: none Drug use: none - Family History Father Family Member Ethnicity: Non- Living Status: Hx Family Cardiac Disorders: Yes (hypertension) Hx Family Respiratory Disorders: No Hx Family Cancer: No Hx Family GI Disorders: No Hx Family Endocrine Disorder: Yes (diabetes) Hx Family Neuromuscular Disorders: No Hx Family Neurologic Disorders: No Hx Family HEENT Disorders: No Hx Family Autoimmune Disorders: No Mother Adopted: No Family Member Ethnicity: Non- Living Status: Still Living Hx Family Cardiac Disorders: Yes (Afib) Hx Family Respiratory Disorders: No Hx Family Cancer: Yes (Colon) Hx Family GI Disorders: Yes (Cancer) Hx Family Endocrine Disorder: Yes Hx Family Neuromuscular Disorders: Yes (Stroke 2016) Hx Family Neurologic Disorders: No Hx Family HEENT Disorders: No Hx Family Autoimmune Disorders: No Internal Medicine - H&P: Meds Aspirin 81 mg PO DAILY 11/10/14 [History] Psyllium Husk [Daily Fiber] 2 tab PO DAILY 10/15/15 [History] Omeprazole [PriLOSEC] 20 mg PO DAILY 11/29/15 [History] Acetaminophen [Tylenol] 500 mg PO Q6HR PRN 08/25/16 [History] Calcium Carbonate [Calcium] 600 mg PO DAILY 05/28/17 [History] Fluticasone Furoate [Arnuity Ellipta] 1 puff IH QAM 05/28/17 [History] Melatonin 5 mg PO HS PRN 05/28/17 [History] Diltiazem CD (24hr) [Cardizem CD] 360 mg PO DAILY #30 cap.er.24h 06/25/17 [Rx] Metoprolol XL (24 HR) Succ [Toprol Xl] 25 mg PO DAILY #30 tab.er.24h 06/25/17 [Rx] Furosemide [Lasix] 40 mg PO DAILY PRN 07/26/17 [History] Rosuvastatin [Crestor] 10 mg PO HS 12/10/17 [History] Warfarin [Coumadin] 2.5 mg PO [id number] 12/24/17 [History] Albuterol Sulfate [Ventolin Hfa] 2 puff PO Q6H PRN 01/28/18 [History] Allergy/AdvReac Type Severity Reaction Status Date / Time adhesive tape Allergy Hives Verified 01/28/18 11:45 All Systems PM: A 10-system review of systems was performed and is negative for pertinent findings except as documented above in the HPI. - Constitutional Vitals: Temp Pulse Resp BP Pulse Ox 98.6 F 99 23 155/64 96 01/28/18 12:01 01/28/18 13:32 01/28/18 13:32 01/28/18 13:32 01/28/18 13:51 Exam: General appearance: No acute distress, A&O X 3, 3 L oxygen by nasal cannula Head exam: Atraumatic Eye exam: EOMI, PERRLA ENT exam: Moist oral mucosa Neck nontender, supple Respiratory exam: Crepitations bilaterally more on the right side but no wheezing Cardiovascular exam: Regular rate and rhythm, no systolic murmur Abdominal exam: Soft, nontender, nondistended, positive bowel sounds Extremities exam: No calf tenderness, no pedal edema Present: Skin-no rash, warm, dry, intact Neurological exam: CN II-XII intact, no focal deficits. No facial droop. Normal speech. Internal Med - H&P Results - Labs CBC & Chem 7: 01/28/18 12:45 01/28/18 12:45 Labs: Short CBC 01/28/18 Range/Units 12:45 WBC 9.6 (4.3-11.1) K/mcL Hgb 10.3 L (11.5-15.4) g/dL Hct 32.7 L (35.3-44.9) % Plt Count 283 (140-400) K/mcL Neutrophils # 8.0 (1.6-8.9) K/mcL BMP 01/28/18 12:45 Sodium 141 Potassium 3.8 Chloride 106 Carbon Dioxide 27 BUN 16 Creatinine 0.66 Glucose 144 H Calcium 8.3 L Cardiac Enzymes 01/28/18 Range/Units 12:45 Troponin I < 0.03 (< 0.04) ng/mL - Impressions ITS Impressions Chest X-Ray 01/28/18 11:48 IMPRESSION: 1. Increasing bilateral interstitial opacities concerning for pulmonary edema. 2. Probable superimposed bibasilar atelectasis. Underlying pneumonia is not excluded. D/ / Quang Soni MD / Quang Soni MD Interpreting Provider: Quang Soni MD Chest CTA 01/28/18 11:54 IMPRESSION: 1. No findings of pulmonary embolism. 2. Persistent partial collapse of the right middle and right lower lobes with superimposed air bronchograms suspicious for pneumonia. 3. Increased interstitial edema or pneumonia. 4. New patchy areas of nodular consolidative opacity may represent developing alveolar edema or multifocal pneumonia. 5. Trace right pleural effusion. D/ / Arun Arguelles MD / Arun Arguelles MD Interpreting Provider: Arun Arguelles MD - Assessment and plan (1) Pneumonia Current Visit: Yes Status: Acute Assessment and plan: Healthcare associated most likely as patient had recent hospitalization 4 weeks ago. Worsening of pneumonia with multifocal worsening on CT. Started Zosyn. Will wait for nasal swab report for MRSA and if is positive will restart vancomycin respiratory panel ordered, influenza negative, urine Legionella ordered. Will also order blood culture, sputum culture, urine culture to rule out underlying sepsis. Continue oxygen, DuoNeb, spirometry and consulted aerologist. ER physician already talked to on-call pulmonologists Dr. renteria Qualifiers: Pneumonia type: due to unspecified organism Laterality: bilateral Qualified Code(s): J18.9 - Pneumonia, unspecified organism (2) Atrial fibrillation Current Visit: Yes Status: Acute Assessment and plan: Normal sinus rhythm at times. Is status post radioablation and has been under of cardiologists at [place]. Patient is on the loop recorder at present. Echocardiogram done in December 2017 with finding of EF 60-65% and mild concentric LVH, moderate LVEDD, left atrium mildly dilated, moderate pulmonary hypertension, [id number] TR. Continue to monitor in telemetry as patient is having acute infection. INR therapeutic and continue warfarin. INR monitoring. Patient did Coumadin 2.5 mg daily except Sunday-none Qualifiers: Atrial fibrillation type: chronic Qualified Code(s): I48.2 - Chronic atrial fibrillation (3) Shortness of breath Current Visit: No Status: Acute Assessment and plan: Oxygen dependent since last admission. ABG ordered. Most likely due to worsening pneumonia and underlying COPD component therefore IV Solu-Medrol added. Continue DuoNeb oxygen supplementation. Patient will require home oxygen evaluation given discharge. Pulmonologists consulted. BNP within normal limit. Echocardiogram done recently December 2017 with above-mentioned findings. (4) HLD (hyperlipidemia) Current Visit: No Status: Chronic Assessment and plan: Continue home medicine. Is stable Qualifiers: Hyperlipidemia type: unspecified Qualified Code(s): E78.5 - Hyperlipidemia, unspecified (5) HTN (hypertension) Current Visit: No Status: Chronic Assessment and plan: Continue home medicine. Close monitoring Qualifiers: Hypertension type: essential hypertension Qualified Code(s): I10 - Essential (primary) hypertension (6) CHF (congestive heart failure) Current Visit: Yes Status: Acute Assessment and plan: Does not appear in acute exacerbation as BNP negative. Continue home medicine with close monitoring. Qualifiers: Heart failure type: diastolic Heart failure chronicity: unspecified Qualified Code(s): I50.30 - Unspecified diastolic (congestive) heart failure (7) DVT prophylaxis Current Visit: No Status: Acute Assessment and plan: Continue warfarin. Therapeutic INR - Time Spent With Patient Total time spent is greater than 50% in coordination of care (as documented) at patient's floor/unit and/or counseling patient: 25 - 35 minutes
[2018-01-28] MEDS ORDERED: Melatonin 3 MG TABLET PO PRN (16:42)
[2018-01-28] MEDS ORDERED: Furosemide 40 MG TABLET PO PRN (16:42)
[2018-01-28] MEDS: Ipratropium/Albuterol Neb 3 ML IH SCH ×2 (18:09→22:11)
[2018-01-28 18:56] LABS: ABG Base Excess 4 mEq/L (-2 to 3); ABG HCO3 29 mEq/L (21-27); ABG Oxygen Saturation 94 % (95-98); ABG PCO2 46 mmHg (35-45); ABG PH 7.41 pH Units (7.32-7.45); ABG PO2 69 mmHg (85-104); ABG TCO2 31 mEq/L (20-26)
[2018-01-28] MEDS: *HR* Warfarin 2.5 MG TABLET PO SCH (21:45)
[2018-01-28 23:02] LABS: Adenovirus Not Detected (Not Detect); Bordetella Pertussis Not Detected (Not Detect); Chlamydophila pneumoniae Not Detected (Not Detect); Coronavirus 229E Not Detected (Not Detect); Coronavirus HKU1 Not Detected (Not Detect); Coronavirus NL63 Not Detected (Not Detect); Coronavirus OC43 Not Detected (Not Detect); Human Metapneumovirus Not Detected (Not Detect); Human Rhinovirus/Enterovirus Not Detected (Not Detect); Influenza A Subtype 2009 H1 Not Detected (Not Detect); Influenza A Untypeable Not Detected (Not Detect); Influenza B Not Detected (Not Detect); Mycoplasma pneumoniae Not Detected (Not Detect); Parainfluenza Virus 1 Not Detected (Not Detect); Parainfluenza Virus 2 Not Detected (Not Detect); Parainfluenza Virus 3 Not Detected (Not Detect); Parainfluenza Virus 4 Not Detected (Not Detect); Respiratory Syncytial Virus Not Detected (Not Detect)
--- NOTE | 2018-01-29 02:29 | Electrocardiograph Report ---
[place] [employer] Test Date: 2018-01-28 Pat Name: Erica Merida Department: EXAM1 Room: [facility] Gender: F Occup Therapist: : 1950 Requested By: Cleveland Bonner Order Number: [id number] Reading MD: Cornelius Rodríguez Measurements Intervals [place] Rate: 96 P: 35 UT: 163 QRS: 21 QRSD: 90 T: 17 QT: 345 QTc: 436 Interpretive Statements Sinus rhythm Electronically Signed On 01-29-2018 2:28:15 EST by Cornelius Rodríguez
[2018-01-29] MEDS: Ipratropium/Albuterol Neb 3 ML IH SCH ×4 (04:00→22:15)
[2018-01-29 05:56] LABS: Basophils % 0.3 %; Hematocrit 31.8 % (35.3-44.9); Immature Granulocytes % 1.6 % (0-4); Mean Corpuscular HGB Conc 31.4 g/dL (31.6-35.5); Mean Corpuscular Hemoglobin 27.2 pg (28.0-33.3); Mean Corpuscular Volume 86.6 fL (83.0-100.0); Monocytes # 0.1 K/mcL (0.0-1.3); Neutrophils # 5.6 K/mcL (1.6-8.9); Platelet Count 264 K/mcL (140-400); Red Blood Count 3.67 M/mcL (3.82-4.97); Red Cell Distribution Width 15.1 % (11.5-14.5); Segmented Neutrophils % 83.1 %
[2018-01-29 06:05] LABS: INR 1.9; Prothrombin Time 21.6 Seconds (9.4-12.1)
[2018-01-29 06:10] LABS: BUN/Creatinine Ratio 24 (6-26); Blood Urea Nitrogen 18 mg/dL (8-23); Calcium 8.7 mg/dL (8.6-10.3); Carbon Dioxide 25 mEq/L (23-29); Chloride 105 mEq/L (98-107); Glucose 244 mg/dL (70-105); Osmolality,Calculated 304 (280-300); Potassium 3.5 mEq/L (3.5-5.1); Sodium 142 mEq/L (136-145); eGFR For Non-African Americans > 60 (> 60)
[2018-01-29] MEDS ORDERED: *HR* Dextrose 50 % in Water (Syg) 50 ML SYRINGE IVP PRN (07:26)
[2018-01-29] MEDS ORDERED: Dextrose Gel 15 GM/37.5 ML TUBE PO PRN ×2 (07:26)
[2018-01-29] MEDS ORDERED: D5% in Water 1,000 ML IVC PRN (07:26)
[2018-01-29] MEDS: Metoprolol XL (24 HR) Succ 25 MG TAB.ER.24H PO SCH (08:39)
[2018-01-29] MEDS: Aspirin 81 MG TAB.CHEW PO SCH (08:39)
[2018-01-29] MEDS: Diltiazem CD (24hr) 180 MG CAPSULE PO SCH (08:39)
[2018-01-29] MEDS: Psyllium 1 PACKET POWD.PACK PO SCH (08:41)
[2018-01-29] MEDS ORDERED: (Fluticasone Furoate [Arnuity Ellipta] 1 PUFF) IH SCH (09:00)
--- NOTE | 2018-01-29 09:08 | Pulmonology Consult Note ---
<ZayRaffi S - Last Filed: 01/29/18 10:54> Date of Encounter: 01/29/18 Time of Encounter: 09:01 Assessment and Plan (1) Multifocal pneumonia Current Visit: Yes Status: Acute Pt presents increasing SOB from baseline - on 2 L home oxygen, turned up to 3L - increasing sputum production and cough CT scan from December admission showed - multifocal airspace disease of R > L, increased mediastinal and hilar nodes. CT scan on admission - partial collapse of right middle/right lower lobes with superimposed air brochograms suspicious for pneumonia. - New patchy areas of nodular consolidative opacity may represent developing alveolar edema vs multifocal pneumonia. - Increased interstitial edema vs pneumonia. Pt has known contact with a pt tested (+) for Legionella pneumonia - if this is truly pneumonia, it is most likely a bacterial infxn and should be tx as HCAP due to recent admission - amiodarone induced lung injury is low on differnetial Pt was started on Amiodarone in April and it was d/c after abnormal PFT in May of 2017 Pt was not on amiodarone for long period of time Respiratory panel negative BK, CCP, RF factors WNL on last admission BAL on last admission showed inflamed airways, negative micro Plan: - continue zosyn until discharge - continue duonebs - continue solumedrol - keep O2 sat >88% - legionella, strep pneumo antigens pending - blood cx pending - pulmonology recommendations as follows: discharge the patient with a 10day course of Augmentin discharge the pt with a 50mg PO prednisone tab x 14 days, then taper by 10mg/week until pulmonology follow up attending discussed with pt the pros and cons, risks vs benefits of bronchoscopy with biopsy pt has hx of adverse events when off blood thinner and bled quite a lot on last bronch, which only involved BAL no bx pt has chosen the route of staying conservative for possible IPF with steroids and a trial of abx - follow up with pulmonology as an outpatient basis (2) Acute and chronic respiratory failure with hypoxia Current Visit: Yes Status: Acute See plan as above. 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 - suspected (6) Obesity Current Visit: Yes Status: Acute BMI 39 Qualifiers: Obesity type: unspecified obesity type Obesity classification: adult class 2 (BMI 35 - 39.9) Serious obesity comorbidity presence: unspecified whether serious comorbidity present Body mass index: BMI 39.0-39.9 Qualified Code(s): E66.9 - Obesity, unspecified; Z68.39 - Body mass index (BMI) 39.0-39.9, adult History of Present Illness Consult date: 01/28/18 Requesting physician: Ruth Ann Muñoz Reason for consult: pneumonia Chief complaint: "SOB" History of present illness: Ms. Merida is a 67yo female with PMH A fib on coumadin, asthma, hx of breast cancer, and HTN. She presented on 01/28 after ~10days of "feeling off." She had increasing SOB from baseline and is on home oxygen, 2-3 L chronically. Any activity makes me short of breath, such as dangling her feet off the bed. She had some chills and night sweats at home. She had been coughing up strings of blood with yellow phglemn. She denies any chest pain, N/V/D, abd pain, or headaches. She was recently here about 1 mo ago seen by Dr. Kuhn for pneumonia. At that time shows multifocal airspace disease of R > L, increased mediastinal and hilar nodes. She states that as soon as her steroids were done, she began to feel worse. She had contact with someone with known Legionella pneumonia while they vacationed together at [place]. She denies tobacco abuse. She has no pets. No contact with birds/bats. 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 In the ER the pt had CT chest which showed partial collapse of right midd le/right lower lobes with superimposed air brochograms suspicious for pneumonia. New patchy areas of nodular consolidative opacity may represent developing alveolar edema vs multifocal pneumonia. Increased interstitial edema vs pneumonia. Of note, the pt was on amiodarone for a fib before ablation. She was removed from the rx due to abnormal PFTs. Past Med Surg Social Fam HX - Past Medical History Medical history: asthma, atrial fibrillation, CHF, hypertension, TIA Additional medical history: Breast CA, neuropathy, IBS Psychiatric history: no psych history - Past Surgical History Surgical History: breast surgery, cancer surgery, hysterectomy Additional surgical history: cardiac ablation, L mastectomy, LOOP recorder - Social History Smoking Status: Never smoker Smokeless Tobacco Status: No Alcohol use: none Drug use: none - Family History Father Family Member Ethnicity: Non- Living Status: Hx Family Cardiac Disorders: Yes (hypertension) Hx Family Respiratory Disorders: No Hx Family Cancer: No Hx Family GI Disorders: No Hx Family Endocrine Disorder: Yes (diabetes) Hx Family Neuromuscular Disorders: No Hx Family Neurologic Disorders: No Hx Family HEENT Disorders: No Hx Family Autoimmune Disorders: No Mother Adopted: No Family Member Ethnicity: Non- Living Status: Still Living Hx Family Cardiac Disorders: Yes (Afib) Hx Family Respiratory Disorders: No Hx Family Cancer: Yes (Colon) Hx Family GI Disorders: Yes (Cancer) Hx Family Endocrine Disorder: Yes Hx Family Neuromuscular Disorders: Yes (Stroke 2016) Hx Family Neurologic Disorders: No Hx Family HEENT Disorders: No Hx Family Autoimmune Disorders: No Medications and Allergies Aspirin 81 mg PO DAILY 11/10/14 [History] Psyllium Husk [Daily Fiber] 2 tab PO DAILY 10/15/15 [History] Omeprazole [PriLOSEC] 20 mg PO DAILY 11/29/15 [History] Acetaminophen [Tylenol] 500 mg PO Q6HR PRN 08/25/16 [History] Calcium Carbonate [Calcium] 600 mg PO DAILY 05/28/17 [History] Fluticasone Furoate [Arnuity Ellipta] 1 puff IH QAM 05/28/17 [History] Melatonin 5 mg PO HS PRN 05/28/17 [History] Diltiazem CD (24hr) [Cardizem CD] 360 mg PO DAILY #30 cap.er.24h 06/25/17 [Rx] Metoprolol XL (24 HR) Succ [Toprol Xl] 25 mg PO DAILY #30 tab.er.24h 06/25/17 [Rx] Furosemide [Lasix] 40 mg PO DAILY PRN 07/26/17 [History] Rosuvastatin [Crestor] 10 mg PO HS 12/10/17 [History] Warfarin [Coumadin] 2.5 mg PO [id number] 12/24/17 [History] Albuterol Sulfate [Ventolin Hfa] 2 puff PO Q6H PRN 01/28/18 [History] Allergy/AdvReac Type Severity Reaction Status Date / Time adhesive tape Allergy Hives Verified 01/28/18 11:45 All Systems: The remainder of the systems were reviewed and are negative - Constitutional Constitutional: chills, fatigue, no fever(s), no weight loss - EENT Nose, mouth and throat: no headache(s) - Cardiovascular Cardiovascular: dyspnea, dyspnea on exertion, no chest pain, no chest pain at rest, no chest pain with activity, no palpitations - Respiratory Respiratory: cough, dyspnea, hemoptysis, dyspnea on exertion, excessive phlegm production - Gastrointestinal Gastrointestinal: no abdominal pain, no diarrhea, no melena, no nausea, no vomiting - Musculoskeletal Musculoskeletal: arthralgias, myalgias - Integumentary Integumentary: no erythema, no rash - Neurological Neurological: no dizziness, no headache(s), no tingling, no weakness Physical Examination Vital Signs: Vital Signs, Last 4 Hours Temp Pulse Resp BP Pulse Ox 01/29/18 08:02 97.7 F 80 14 152/77 93 01/29/18 05:35 97.5 F L 79 16 148/70 94 General appearance: no acute distress, appears uncomfortable Eyes: nonicteric ENT: oropharynx moist Mallampati (class): 3 Neck: supple Effort: mildly labored Inspection: normal Auscultation: bilateral: diminished breath sounds, rhonchi Cardiovascular: regular rate and rhythm Gastrointestinal: normoactive bowel sounds, non-distended Integumentary: normal Extremities: no edema Musculoskeletal: no deformities normal mental status, non-focal exam mood appropriate, affect normal Results - Laboratory Findings CBC and BMP: 01/29/18 04:50 01/29/18 04:50 ABG ABG pH 7.41 pH Units (7.32-7.45) 01/28/18 18:53 ABG pCO2 46 mmHg (35-45) H 01/28/18 18:53 ABG pO2 69 mmHg (85-104) L 01/28/18 18:53 ABG O2 Saturation 94 % (95-98) L 01/28/18 18:53 PT/INR, D-dimer PT 21.6 Seconds (9.4-12.1) H 01/29/18 04:50 Abnormal lab findings: Abnormal lab results RBC 3.67 M/mcL (3.82-4.97) L 01/29/18 04:50 Hgb 10.0 g/dL (11.5-15.4) L 01/29/18 04:50 Hct 31.8 % (35.3-44.9) L 01/29/18 04:50 MCH 27.2 pg (28.0-33.3) L 01/29/18 04:50 MCHC 31.4 g/dL (31.6-35.5) L 01/29/18 04:50 RDW 15.1 % (11.5-14.5) H 01/29/18 04:50 MPV 9.0 fL (9.4-12.4) L 01/29/18 04:50 PT 21.6 Seconds (9.4-12.1) H 01/29/18 04:50 ABG pCO2 46 mmHg (35-45) H 01/28/18 18:53 ABG pO2 69 mmHg (85-104) L 01/28/18 18:53 ABG HCO3 29 mEq/L (21-27) H 01/28/18 18:53 ABG Total CO2 31 mEq/L (20-26) H 01/28/18 18:53 ABG O2 Saturation 94 % (95-98) L 01/28/18 18:53 ABG Base Excess 4 mEq/L (-2 to 3) H 01/28/18 18:53 Glucose 244 mg/dL (70-105) H 01/29/18 04:50 Calculated Osmolality 304 (280-300) H 01/29/18 04:50 - Microbiology Findings Microbiology Findings: Microbiology, Last 48 Hours 01/28/18 21:48 Sputum Culture - Final Sputum 01/28/18 13:03 Blood Culture - Preliminary Peripheral Venipuncture Culture is incubating and being continuously monitored for growth. Final report to follow. 01/28/18 12:45 Blood Culture - Preliminary Peripheral Venipuncture Culture is incubating and being continuously monitored for growth. Final report to follow. 01/28/18 13:34 Influenza Types A,B Antigen - Final Nasopharyngeal - Clinical Findings Intake & Output: Intake & Output 01/28/18 01/29/18 01/29/18 23:59 07:59 15:59 Intake Total 950 / 950 Output Total 0 / 0 400 / 400 Balance 550 / 550 Weight 108 kg 108 kg Consult Discharge Plan - Plan Referrals: Aleksandar Strickland DO [Primary Care Provider] - <Harinder Obando - Last Filed: 01/29/18 12:12> Date of Encounter: 01/29/18 All Systems: The remainder of the systems were reviewed and are negative Physical Examination Vital Signs: Vital Signs, Last 4 Hours Resp Pulse Ox 01/29/18 09:47 17 91 Results - Laboratory Findings CBC and BMP: 01/29/18 04:50 01/29/18 04:50 ABG ABG pH 7.41 pH Units (7.32-7.45) 01/28/18 18:53 ABG pCO2 46 mmHg (35-45) H 01/28/18 18:53 ABG pO2 69 mmHg (85-104) L 01/28/18 18:53 ABG O2 Saturation 94 % (95-98) L 01/28/18 18:53 PT/INR, D-dimer PT 21.6 Seconds (9.4-12.1) H 01/29/18 04:50 Abnormal lab findings: Abnormal lab results RBC 3.67 M/mcL (3.82-4.97) L 01/29/18 04:50 Hgb 10.0 g/dL (11.5-15.4) L 01/29/18 04:50 Hct 31.8 % (35.3-44.9) L 01/29/18 04:50 MCH 27.2 pg (28.0-33.3) L 01/29/18 04:50 MCHC 31.4 g/dL (31.6-35.5) L 01/29/18 04:50 RDW 15.1 % (11.5-14.5) H 01/29/18 04:50 MPV 9.0 fL (9.4-12.4) L 01/29/18 04:50 PT 21.6 Seconds (9.4-12.1) H 01/29/18 04:50 ABG pCO2 46 mmHg (35-45) H 01/28/18 18:53 ABG pO2 69 mmHg (85-104) L 01/28/18 18:53 ABG HCO3 29 mEq/L (21-27) H 01/28/18 18:53 ABG Total CO2 31 mEq/L (20-26) H 01/28/18 18:53 ABG O2 Saturation 94 % (95-98) L 01/28/18 18:53 ABG Base Excess 4 mEq/L (-2 to 3) H 01/28/18 18:53 Glucose 244 mg/dL (70-105) H 01/29/18 04:50 Calculated Osmolality 304 (280-300) H 01/29/18 04:50 Urine Protein 30 mg/dL (Neg-Trace) H 01/29/18 10:25 Urine Glucose (UA) 500 mg/dL (Normal) H 01/29/18 10:25 Urine Ketones Trace mg/dL (Negative) H 01/29/18 10:25 Ur Squamous Epith Cells Many per lpf (None-Few) H 01/29/18 10:25 - Microbiology Findings Microbiology Findings: Microbiology, Last 48 Hours 01/29/18 10:25 Legionella Antigen - Final Urine,Clean Catch 01/29/18 10:25 Streptococcus pneumoniae Antigen (M - Final Urine,Clean Catch 01/28/18 21:48 Sputum Culture - Final Sputum 01/28/18 13:03 Blood Culture - Preliminary Peripheral Venipuncture Culture is incubating and being continuously monitored for growth. Final report to follow. 01/28/18 12:45 Blood Culture - Preliminary Peripheral Venipuncture Culture is incubating and being continuously monitored for growth. Final report to follow. 01/28/18 13:34 Influenza Types A,B Antigen - Final Nasopharyngeal - Clinical Findings Intake & Output: Intake & Output 01/28/18 01/29/18 01/29/18 23:59 07:59 15:59 Intake Total 20 / 20 950 / 950 120 / 120 Output Total 0 / 0 400 / 400 Balance 20 550 / 550 120 / 120 Weight 108 kg 108 kg - Attending Attestation I examined this patient and my medical decision-making was reviewed with the Resident Physician. I agree with the documented findings, disposition and treatment plan as described except to the extent set forth below. We independently had [id number] contact with the patient Patient seen and examined at bedside Labs, radiology, chart personally reviewed. Impression: Acute on Chronic Respiratory Failure with Hypoxia Unresolved Pneumonia AFib HFpEF I reviewed the CT scan findings with the patient and answered all questions that she has a right middle and right lower lobe opacity which is worsened in the interval since she was seen in the hospital last visit approximately a month ago. I suspect that this is related to an inflammatory process such as organizing pneumonia as opposed to a true infectious process. Gave the patient the option of proceeding with transbronchial biopsies versus more conservative approach which would be another course of antibiotics and then a higher dose of steroid with a prolonged taper given the history of bleeding with last procedure without biopsy patient was only apprehensive of proceeding with biopsies at this time and opted for the conservative approach Recs: -Send sputum and blood cultures and urine antigens for Legionella and strep pneumo -Would continue Zosyn while inpatient and transition to outpatient beta-lactam therapy with Augmentin to complete a 10 day course -Transition to oral prednisone 50 mg which should be given daily 2 weeks and then can consider tapering by 10 mg weekly thereafter -she should have pulmonary follow-up within 2 weeks for f/u -Cont supplemental oxygen to keep saturation greater than 88% to 92% Recommend daily bronchodilator -Continue daily diuretic -Blood glucose monitoring while on prednisone she will need outpatient follow-up with her PCP to optimize this -
[2018-01-29] MEDS: Piperacillin/Tazobactam 3.375 GM in 0.9 % Sodium Chloride Mini Bag 100 ML IVPB SCH ×2 (11:18→17:01)
[2018-01-29 11:39] LABS: Bilirubin,Urine Negative (Negative); Blood,Urine Negative (Negative); Clarity,Urine Clear (Clear); Color,Urine Yellow (Yellow); Glucose,Urine (UA) 500 mg/dL (Normal); Ketones,Urine Trace mg/dL (Negative); Leukocyte Esterase,Urine Negative (Negative); Nitrite,Urine Negative (Negative); Protein,Urine 30 mg/dL (Neg-Trace); Specific Gravity,Urine 1.024 (1.010-1.025); Urobilinogen,Urine Normal (Normal)
[2018-01-29 11:41] LABS: Bacteria,Urine None Seen per hpf (None-Few); Hyaline Casts,Urine None Seen per lpf (None-Few); RBC,Urine 0-3 per hpf (0-3); Squamous Epithelial Cell,Urine Many per lpf (None-Few); WBC,Urine 0-3 per hpf (0-3)
--- NOTE | 2018-01-29 11:56 | Internal Med Progress Note ---
Hospitalist Progress Note - Encounter Date of Encounter: 01/29/18 Time of Encounter: 11:54 - Subjective Interval History: Patient is still has cough and shortness of breath though slight better. Review the lab. Denies fever chills nausea vomiting headache dizziness chest pain abdominal pain urinary or bowel complaint - Exam Vitals: Temp Pulse Resp BP Pulse Ox 97.7 F 80 17 152/77 91 01/29/18 08:02 01/29/18 08:02 01/29/18 09:47 01/29/18 08:02 01/29/18 09:47 Exam: General appearance: No acute distress, A&O X 3, 3 L oxygen by nasal cannula Head exam: Atraumatic Eye exam: EOMI, PERRLA ENT exam: Moist oral mucosa Neck nontender, supple Respiratory exam: Crepitations bilaterally more on the right side but no wheezing Cardiovascular exam: Regular rate and rhythm, no systolic murmur Abdominal exam: Soft, nontender, nondistended, positive bowel sounds Extremities exam: No calf tenderness, trace pedal edema Present Skin-no rash, warm, dry, intact Neurological exam: CN II-XII intact, no focal deficits. No facial droop. Normal speech. - Assessment and Plan (1) Pneumonia Current Visit: Yes Status: Acute Assessment and Plan: Healthcare associated most likely as patient had recent hospitalization 4 weeks ago. Worsening of pneumonia with multifocal worsening on CT. Started Zosyn. Negative nasal swab report for MRSA . influenza negative, urine Legionella and strep pneumoniae negative. No growth -blood culture, sputum culture, urine culture . Continue oxygen, DuoNeb, spirometry , consulted respiratory therapist. reviewed director agency & strategic partnerships note and seems like director agency [employer] strategic partnerships discussed the risk and benefits versus process and cons about possibility of bronchoscopy with biopsy but patient chose conservative management. Continue to monitor patient (2) Atrial fibrillation Current Visit: Yes Status: Acute Assessment and Plan: Normal sinus rhythm at times. Is status post radioablation and has been under of cardiologists at [facility]. Patient is on the loop recorder at present. Echocardiogram done in December 2017 with finding of EF 60-65% and mild concentric LVH, moderate LVEDD, left atrium mildly dilated, moderate pulmonary hypertension, [id number] TR. Continue to monitor in telemetry as patient is having acute infection. INR therapeutic and continue warfarin. INR monitoring. Patient did Coumadin 2.5 mg daily except Sunday-none (3) Shortness of breath Current Visit: No Status: Acute Assessment and Plan: Oxygen dependent since last admission. ABG reviewed. Most likely due to worsening pneumonia and underlying COPD component therefore IV Solu-Medrol added. Continue DuoNeb oxygen supplementation. Patient will require home oxygen evaluation given discharge. Pulmonologists on board. BNP within normal limit. Echocardiogram done recently December 2017 with above-mentioned findings. (4) HLD (hyperlipidemia) Current Visit: No Status: Chronic Assessment and Plan: Continue home medicine. Is stable (5) HTN (hypertension) Current Visit: No Status: Chronic Assessment and Plan: Continue home medicine. Close monitoring (6) CHF (congestive heart failure) Current Visit: Yes Status: Acute Assessment and Plan: Does not appear in acute CHF exacerbation and BNP also negative. Continue home medicine with close monitoring. (7) DVT prophylaxis Current Visit: No Status: Acute Assessment and Plan: Continue warfarin. Therapeutic INR - Time Spent with Patient Total time spent is greater than 50% in coordination of care (as documented) at patient's floor/unit and/or counseling patient: 25 - 35 minutes Plan of Care Discussed with: patient (Plan of care discussed with nursing staff as well) Internal Medicine: Result - Labs CBC & Chem 7: 01/29/18 04:50 01/29/18 04:50 Labs: Short CBC 01/28/18 01/29/18 Range/Units 12:45 04:50 WBC 9.6 6.8 (4.3-11.1) K/mcL Hgb 10.3 L 10.0 L (11.5-15.4) g/dL Hct 32.7 L 31.8 L (35.3-44.9) % Plt Count 283 264 (140-400) K/mcL Neutrophils # 8.0 5.6 (1.6-8.9) K/mcL BMP 01/28/18 01/29/18 12:45 04:50 Sodium 141 142 Potassium 3.8 3.5 Chloride 106 105 Carbon Dioxide 27 25 BUN 16 18 Creatinine 0.66 0.74 Glucose 144 H 244 H Calcium 8.3 L 8.7 Cardiac Enzymes 01/28/18 Range/Units 12:45 Troponin I < 0.03 (< 0.04) ng/mL Urine 01/29/18 Range/Units 10:25 Urine Color Yellow (Yellow) Urine Clarity Clear (Clear) Urine pH 6.0 (5.0-8.0) pH Units Ur Specific [place] 1.024 (1.010-1.025) Urine Protein 30 H (Neg-Trace) mg/dL Urine Glucose (UA) 500 H (Normal) mg/dL - ABG Interpretation ABG results: ABG ABG pH 7.41 pH Units (7.32-7.45) 01/28/18 18:53 ABG pCO2 46 mmHg (35-45) H 01/28/18 18:53 ABG pO2 69 mmHg (85-104) L 01/28/18 18:53 ABG O2 Saturation 94 % (95-98) L 01/28/18 18:53 PT/INR, D-dimer PT 21.6 Seconds (9.4-12.1) H 01/29/18 04:50 - Impressions Impressions Chest X-Ray 01/28/18 11:48 IMPRESSION: 1. Increasing bilateral interstitial opacities concerning for pulmonary edema. 2. Probable superimposed bibasilar atelectasis. Underlying pneumonia is not excluded. D/ / Quang Soni MD / Quang Soni MD Interpreting Provider: Quang Soni MD Chest CTA 01/28/18 11:54 IMPRESSION: 1. No findings of pulmonary embolism. 2. Persistent partial collapse of the right middle and right lower lobes with superimposed air bronchograms suspicious for pneumonia. 3. Increased interstitial edema or pneumonia. 4. New patchy areas of nodular consolidative opacity may represent developing alveolar edema or multifocal pneumonia. 5. Trace right pleural effusion. D/ / Arun Arguelles MD / Arun Arguelles MD Interpreting Provider: Arun Arguelles MD Consult Discharge Plan - Plan Referrals: Aleksandar Strickland DO [Primary Care Provider] - _ (1) Pneumonia Qualifiers: Pneumonia type: due to unspecified organism Laterality: bilateral Qualified Code(s): J18.9 - Pneumonia, unspecified organism (2) Atrial fibrillation Qualifiers: Atrial fibrillation type: chronic Qualified Code(s): I48.2 - Chronic atrial fibrillation (4) HLD (hyperlipidemia) Qualifiers: Hyperlipidemia type: unspecified Qualified Code(s): E78.5 - Hyperlipidemia, unspecified (5) HTN (hypertension) Qualifiers: Hypertension type: essential hypertension Qualified Code(s): I10 - Essential (primary) hypertension (6) CHF (congestive heart failure) Qualifiers: Heart failure type: diastolic Heart failure chronicity: unspecified Qualifi ed Code(s): I50.30 - Unspecified diastolic (congestive) heart failure
[2018-01-29] MEDS: Insulin LISPRO 300 UNITS/3 ML VIAL SQ SCH ×2 (13:05→17:00)
[2018-01-29] MEDS: *HR* Warfarin 2.5 MG TABLET PO SCH (17:00)
[2018-01-29] MEDS ORDERED: Warfarin perPT PO PRN (18:00)
[2018-01-29] MEDS: methylPREDNISolone 125 MG/2 ML VIAL IVP SCH (21:07)
[2018-01-30] MEDS: Piperacillin/Tazobactam 3.375 GM in 0.9 % Sodium Chloride Mini Bag 100 ML IVPB SCH ×3 (00:01→17:23)
[2018-01-30] MEDS: Insulin LISPRO 300 UNITS/3 ML VIAL SQ SCH ×5 (00:22→21:58)
[2018-01-30] MEDS: Ipratropium/Albuterol Neb 3 ML IH SCH ×4 (04:08→23:05)
[2018-01-30 04:56] LABS: Basophils % 0.2 %; Hematocrit 32.5 % (35.3-44.9); Hemoglobin 10.1 g/dL (11.5-15.4); Immature Granulocytes % 2.6 % (0-4); Lymphocytes # 1.1 K/mcL (0.6-4.6); Lymphocytes % 5.6 %; Mean Corpuscular HGB Conc 31.1 g/dL (31.6-35.5); Mean Corpuscular Hemoglobin 27.4 pg (28.0-33.3); Mean Corpuscular Volume 88.3 fL (83.0-100.0); Mean Platelet Volume 8.7 fL (9.4-12.4); Monocytes # 0.4 K/mcL (0.0-1.3); Monocytes % 1.8 %; Neutrophils # 17.4 K/mcL (1.6-8.9); Platelet Count 335 K/mcL (140-400); Red Blood Count 3.68 M/mcL (3.82-4.97); Red Cell Distribution Width 15.6 % (11.5-14.5); Segmented Neutrophils % 89.8 %
[2018-01-30 05:11] LABS: INR 2.3; Prothrombin Time 25.8 Seconds (9.4-12.1)
[2018-01-30 05:14] LABS: BUN/Creatinine Ratio 32 (6-26); Blood Urea Nitrogen 27 mg/dL (8-23); Calcium 8.4 mg/dL (8.6-10.3); Carbon Dioxide 24 mEq/L (23-29); Chloride 107 mEq/L (98-107); Glucose 209 mg/dL (70-105); Osmolality,Calculated 307 (280-300); Potassium 3.6 mEq/L (3.5-5.1); Sodium 143 mEq/L (136-145); eGFR For Non-African Americans > 60 (> 60)
[2018-01-30] MEDS: methylPREDNISolone 125 MG/2 ML VIAL IVP SCH (05:29)
--- NOTE | 2018-01-30 06:50 | Pulmonology Progress Note ---
Date of Encounter: 01/30/18 Time of Encounter: 06:50 Assessment and Plan (1) Pneumonia Current Visit: Yes Status: Acute I suspect this is an inflammatory conditions as his cryptogenic organizing pneumonia after discussion with patient yesterday regarding risk and benefits of bronchoscopy to achieve transbronchial biopsy she opted for the more conservat francis approach of another course of antibiotics with a prolonged steroid taper -Recommend transitioning to oral glucocorticoids today at about 0.5 mg/kg or approximately 50 mg this should be continued for the next 2 weeks with plan to taper after follow-up in pulmonary clinic. -Would continue the pip/tazo iV while in aptient transition to oral beta lactam such as Augmentin to finish a ten-day course -We will need follow-up in pulmonary clinic within 2 weeks and repeat imaging within 4 weeks -Thus far micro-cultures are negative but we will continue to follow them up Qualifiers: Pneumonia type: due to unspecified organism Laterality: bilateral Qualified Code(s): J18.9 - Pneumonia, unspecified organism (2) Asthma exacerbation Current Visit: Yes Status: Acute In addition to oral glucocorticoids patient should be prescribed Symbicort 160/4 .5 2 puffs twice a day she should be given a spacer and instruction with respiratory therapy and discharged with this medication we will optimize her regimen in the outpatient setting Qualifiers: Asthma severity: mild Asthma persistence: unspecified Qualified Code(s): J45.901 - Unspecified asthma with (acute) exacerbation (3) Acute and chronic respiratory failure with hypoxia Current Visit: Yes Status: Acute Wean FiO2 down to keep oxygen saturation around 92-94% Subjective Principal diagnosis: Pneumonia Interval history: MS Merida was evaluated early in the morning she states that that she had difficult time sleeping she had some wheezing overnight had have breathing treatments. Since that her breathing has improved little bit this morning. Denies any hemoptysis or other sputum production. Otherwise hemodynamically stable remains on 2-3 L nasal cannula oxygen without respiratory distress Objective PUL Vital signs: Last Vital Signs Temp 97.4 F L 01/30/18 04:41 Pulse 72 01/30/18 04:41 Resp 18 01/30/18 04:41 BP 135/69 01/30/18 04:41 Pulse Ox 94 01/30/18 04:41 General appearance: no acute distress Eyes: nonicteric Auscultation: bilateral: other (Her entry bilaterally there is some scattered crackles in the lung bases and a faint expiratory wheeze in the right upper lung field ) Cardiovascular: regular rate and rhythm Gastrointestinal: normoactive bowel sounds Integumentary: normal Extremities: no cyanosis, no edema, no clubbing Musculoskeletal: no deformities normal mental status, non-focal exam mood appropriate Results - Laboratory Findings CBC and BMP: 01/30/18 04:40 01/30/18 04:40 ABG ABG pH 7.41 pH Units (7.32-7.45) 01/28/18 18:53 ABG pCO2 46 mmHg (35-45) H 01/28/18 18:53 ABG pO2 69 mmHg (85-104) L 01/28/18 18:53 ABG O2 Saturation 94 % (95-98) L 01/28/18 18:53 PT/INR, D-dimer PT 25.8 Seconds (9.4-12.1) H 01/30/18 04:40 Abnormal lab findings: Abnormal lab results WBC 19.4 K/mcL (4.3-11.1) H D 01/30/18 04:40 RBC 3.68 M/mcL (3.82-4.97) L 01/30/18 04:40 Hgb 10.1 g/dL (11.5-15.4) L 01/30/18 04:40 Hct 32.5 % (35.3-44.9) L 01/30/18 04:40 MCH 27.4 pg (28.0-33.3) L 01/30/18 04:40 MCHC 31.1 g/dL (31.6-35.5) L 01/30/18 04:40 RDW 15.6 % (11.5-14.5) H 01/30/18 04:40 MPV 8.7 fL (9.4-12.4) L 01/30/18 04:40 Neutrophils # 17.4 K/mcL (1.6-8.9) H 01/30/18 04:40 PT 25.8 Seconds (9.4-12.1) H 01/30/18 04:40 ABG pCO2 46 mmHg (35-45) H 01/28/18 18:53 ABG pO2 69 mmHg (85-104) L 01/28/18 18:53 ABG HCO3 29 mEq/L (21-27) H 01/28/18 18:53 ABG Total CO2 31 mEq/L (20-26) H 01/28/18 18:53 ABG O2 Saturation 94 % (95-98) L 01/28/18 18:53 ABG Base Excess 4 mEq/L (-2 to 3) H 01/28/18 18:53 BUN 27 mg/dL (8-23) H 01/30/18 04:40 BUN/Creatinine Ratio 32 (6-26) H 01/30/18 04:40 Glucose 209 mg/dL (70-105) H 01/30/18 04:40 POC Glucose 244 mg/dL (70-99) H 01/29/18 12:38 Calculated Osmolality 307 (280-300) H 01/30/18 04:40 Calcium 8.4 mg/dL (8.6-10.3) L 01/30/18 04:40 Urine Protein 30 mg/dL (Neg-Trace) H 01/29/18 10:25 Urine Glucose (UA) 500 mg/dL (Normal) H 01/29/18 10:25 Urine Ketones Trace mg/dL (Negative) H 01/29/18 10:25 Ur Squamous Epith Cells Many per lpf (None-Few) H 01/29/18 10:25 - Microbiology Findings Microbiology Findings: Microbiology, Last 48 Hours 01/29/18 10:25 Legionella Antigen - Final Urine,Clean Catch 01/29/18 10:25 Streptococcus pneumoniae Antigen (M - Final Urine,Clean Catch 01/28/18 21:48 Sputum Culture - Final Sputum 01/28/18 13:03 Blood Culture - Preliminary Peripheral Venipuncture Culture is incubating and being continuously monitored for growth. Final report to follow. 01/28/18 12:45 Blood Culture - Preliminary Peripheral Venipuncture Culture is incubating and being continuously monitored for growth. Final report to follow. 01/28/18 13:34 Influenza Types A,B Antigen - Final Nasopharyngeal - Diagnostic Findings CT scan - chest: report reviewed, image reviewed - Clinical Findings Intake & Output: Intake & Output 01/29/18 01/29/18 01/30/18 15:59 23:59 07:59 Intake Total 340 / 340 340 / 340 400 / 400 Output Total 100 / 100 250 / 250 100 / 100 Balance 240 / 240 90 / 90 300 / 300 Weight 107.2 kg Consult Discharge Plan - Plan Referrals: Aleksandar Strickland DO [Primary Care Provider] -
[2018-01-30] MEDS: Psyllium 1 PACKET POWD.PACK PO SCH (08:17)
[2018-01-30] MEDS: Metoprolol XL (24 HR) Succ 25 MG TAB.ER.24H PO SCH (08:25)
[2018-01-30] MEDS: Diltiazem CD (24hr) 180 MG CAPSULE PO SCH (08:25)
[2018-01-30] MEDS: Aspirin 81 MG TAB.CHEW PO SCH (08:26)
[2018-01-30] MEDS: Budesonide/Formoterol 160/4.5 1 PUFF INH IH SCH ×2 (10:49→23:05)
--- NOTE | 2018-01-30 11:07 | Internal Med Progress Note ---
Hospitalist Progress Note - Encounter Date of Encounter: 01/30/18 Time of Encounter: 11:03 - Subjective Interval History: Patient is feeling slightly better but still has cough and shortness of breath . Review the lab with raised white count left shift and raised glucose level. Denies fever chills nausea vomiting headache dizziness chest pain abdominal pain urinary or bowel complaint. Complained of generalized weakness - Exam Vitals: Temp Pulse Resp BP Pulse Ox 97.5 F L 72 18 144/73 94 01/30/18 07:35 01/30/18 07:35 01/30/18 10:51 01/30/18 07:35 01/30/18 10:51 Exam: General appearance: No acute distress, A&O X 3, 3 L oxygen by nasal cannula Head exam: Atraumatic Eye exam: EOMI, PERRLA ENT exam: Moist oral mucosa Neck nontender, supple Respiratory exam: Crepitations bilaterally more on the right side but no wheezing Cardiovascular exam: Regular rate and rhythm, no systolic murmur Abdominal exam: Soft, nontender, nondistended, positive bowel sounds Extremities exam: No calf tenderness, trace pedal edema Present Skin-no rash, warm, dry, intact Neurological exam: CN II-XII intact, no focal deficits. No facial droop. Normal speech. - Assessment and Plan (1) Pneumonia Current Visit: Yes Status: Acute Assessment and Plan: Healthcare associated most likely as patient had recent hospitalization 4 weeks ago. Worsening of pneumonia with multifocal worsening on CT. continue Zosyn. Negative nasal swab report for MRSA . influenza negative, urine Legionella and strep pneumoniae negative. No growth -blood culture, sputu m culture, urine culture . Continue oxygen, DuoNeb, spirometry , consulted respiratory therapist. reviewed factory manager note and seems like factory manager discussed the risk and benefits , pros and cons about possibility of bronchoscopy with transbronchial biopsy but patient chose conservative management. Social Media Content Manager recommended to continue IV antibiotic while inpatient and advised to switch oral prednisone 50 mg daily for next 2 weeks and further taper after follow-up in pulmonary clinic. Patient needs to follow pulmonary clinic within 2 weeks and repeat imaging within 4 weeks. Will plan to discharge patient on Augmentin 10 days course. As patient has elevated white count and blood glucose level therefore will continue to monitor and follow reports tomorrow. PT will also assess the patient for further recommendation. (2) Atrial fibrillation Current Visit: Yes Status: Acute Assessment and Plan: Normal sinus rhythm at times. Is status post radioablation and has been under of cardiologists at [place]. Patient is on the loop recorder at present. Echocardiogram done in December 2017 with finding of EF 60-65% and mild concentric LVH, moderate LVEDD, left atrium mildly dilated, moderate pulmonary hypertension, [id number] TR. Continue to monitor in telemetry as patient is having acute infection. INR therapeutic and continue warfarin. INR monitoring. Patient did Coumadin 2.5 mg daily except Sunday-none (3) Shortness of breath Current Visit: No Status: Acute Assessment and Plan: Stable. Oxygen dependent since last admission. ABG reviewed. Most likely due to worsening pneumonia and underlying COPD component therefore IV Solu-Medrol added. Continue DuoNeb oxygen supplementation. Patient will require home oxygen evaluation given discharge. Pulmonologists on board. BNP within normal limit. Echocardiogram done recently December 2017 with above-mentioned findings. (4) HLD (hyperlipidemia) Current Visit: No Status: Chronic Assessment and Plan: Continue home medicine. Is stable (5) HTN (hypertension) Current Visit: No Status: Chronic Assessment and Plan: Continue home medicine. Close monitoring (6) CHF (congestive heart failure) Current Visit: Yes Status: Acute Assessment and Plan: Does not appear in acute CHF exacerbation and BNP also negative. Continue home medicine with close monitoring. (7) DVT prophylaxis Current Visit: No Status: Acute Assessment and Plan: Continue warfarin. Therapeutic INR - Time Spent with Patient Total time spent is greater than 50% in coordination of care (as documented) at patient's floor/unit and/or counseling patient: 25 - 35 minutes Plan of Care Discussed with: patient (Discuss plan of care with nursing staff and case management) Internal Medicine: Result - Labs CBC & Chem 7: 01/30/18 04:40 01/30/18 04:40 Labs: Short CBC 01/30/18 Range/Units 04:40 WBC 19.4 H D (4.3-11.1) K/mcL Hgb 10.1 L (11.5-15.4) g/dL Hct 32.5 L (35.3-44.9) % Plt Count 335 (140-400) K/mcL Neutrophils # 17.4 H (1.6-8.9) K/mcL BMP 01/30/18 04:40 Sodium 143 Potassium 3.6 Chloride 107 Carbon Dioxide 24 BUN 27 H Creatinine 0.84 Glucose 209 H Calcium 8.4 L Urine 01/29/18 Range/Units 10:25 Urine Color Yellow (Yellow) Urine Clarity Clear (Clear) Urine pH 6.0 (5.0-8.0) pH Units Ur Specific [place] 1.024 (1.010-1.025) Urine Protein 30 H (Neg-Trace) mg/dL Urine Glucose (UA) 500 H (Normal) mg/dL - ABG Interpretation ABG results: ABG ABG pH 7.41 pH Units (7.32-7.45) 01/28/18 18:53 ABG pCO2 46 mmHg (35-45) H 01/28/18 18:53 ABG pO2 69 mmHg (85-104) L 01/28/18 18:53 ABG O2 Saturation 94 % (95-98) L 01/28/18 18:53 PT/INR, D-dimer PT 25.8 Seconds (9.4-12.1) H 01/30/18 04:40 Consult Discharge Plan - Plan Referrals: Aleksandar Strickland DO [Primary Care Provider] - (1) Pneumonia Qualifiers: Pneumonia type: due to unspecified organism Laterality: bilateral Qualified Code(s): J18.9 - Pneumonia, unspecified organism (2) Atrial fibrillation Qualifiers: Atrial fibrillation type: chronic Qualified Code(s): I48.2 - Chronic atrial fibrillation (4) HLD (hyperlipidemia) Qualifiers: Hyperlipidemia type: unspecified Qualified Code(s): E78.5 - Hyperlipidemia, unspecified (5) HTN (hypertension) Qualifiers: Hypertension type: essential hypertension Qualified Code(s): I10 - Essential (primary) hypertension (6) CHF (congestive heart failure) Qualifiers: Heart failure type: diastolic Heart failure chronicity: unspecified Qualified Code(s): I50.30 - Unspecified diastolic (congestive) heart failure
[2018-01-30] MEDS ORDERED: MethylPREDNISolone 40 MG/ML VIAL IVP SCH (13:00)
[2018-01-30] MEDS: *HR* Warfarin 2.5 MG TABLET PO SCH (17:22)
[2018-01-31] MEDS: Piperacillin/Tazobactam 3.375 GM in 0.9 % Sodium Chloride Mini Bag 100 ML IVPB SCH ×4 (00:58→23:38)
[2018-01-31] MEDS: Ipratropium/Albuterol Neb 3 ML IH SCH ×4 (03:56→21:53)
[2018-01-31 04:30] LABS: Basophils # 0.1 K/mcL (0.0-0.2); Basophils % 0.4 %; Hematocrit 32.3 % (35.3-44.9); Lymphocytes # 1.2 K/mcL (0.6-4.6); Lymphocytes % 5.7 %; Mean Corpuscular Hemoglobin 27.3 pg (28.0-33.3); Mean Corpuscular Volume 88.3 fL (83.0-100.0); Mean Platelet Volume 8.7 fL (9.4-12.4); Monocytes # 0.6 K/mcL (0.0-1.3); Neutrophils # 17.9 K/mcL (1.6-8.9); Nucleated Red Blood Cells 0.1 /100 WBC (0); Platelet Count 354 K/mcL (140-400); Red Blood Count 3.66 M/mcL (3.82-4.97); Red Cell Distribution Width 15.9 % (11.5-14.5); Segmented Neutrophils % 85.9 %
[2018-01-31 04:40] LABS: INR 2.8; Prothrombin Time 32.1 Seconds (9.4-12.1)
[2018-01-31 04:49] LABS: BUN/Creatinine Ratio 37 (6-26); Blood Urea Nitrogen 30 mg/dL (8-23); Calcium 8.6 mg/dL (8.6-10.3); Carbon Dioxide 24 mEq/L (23-29); Chloride 107 mEq/L (98-107); Glucose 255 mg/dL (70-105); Osmolality,Calculated 309 (280-300); Potassium 3.7 mEq/L (3.5-5.1); Sodium 142 mEq/L (136-145); eGFR For Non-African Americans > 60 (> 60)
[2018-01-31] MEDS: Metoprolol XL (24 HR) Succ 25 MG TAB.ER.24H PO SCH (08:44)
[2018-01-31] MEDS: Diltiazem CD (24hr) 180 MG CAPSULE PO SCH (08:44)
[2018-01-31] MEDS: Aspirin 81 MG TAB.CHEW PO SCH (08:45)
[2018-01-31] MEDS: predniSONE 20 MG TABLET PO SCH (08:45)
[2018-01-31] MEDS: Insulin LISPRO 300 UNITS/3 ML VIAL SQ SCH ×4 (08:47→23:36)
[2018-01-31] MEDS: DAILY FIBER PO SCH (08:49)
[2018-01-31] MEDS: Budesonide/Formoterol 160/4.5 1 PUFF INH IH SCH ×2 (10:49→21:52)
--- NOTE | 2018-01-31 13:37 | Pulmonology Progress Note ---
Date of Encounter: 01/31/18 Time of Encounter: 13:36 Assessment and Plan (1) Pneumonia Current Visit: Yes Status: Acute I suspect this is an inflammatory conditions as his cryptogenic organizing pneumonia Persistent leukocytosis over the last 48 hours which I suspect is steroid- induced as the rest of her clinical presentation and including lack of fever goes against uncontrolled infection Would repeat CBC tomorrow Continue Zosyn with planned to de-escalate to Augmentin complete 10 day course 50 mg prednisone until clinic follow-up in pulmonary we can decide tapering course which would likely be weekly or biweekly We will need repeat CT scan in 4-6 weeks Qualifiers: Pneumonia type: due to unspecified organism Laterality: bilateral Qualified Code(s): J18.9 - Pneumonia, unspecified organism (2) Asthma exacerbation Current Visit: Yes Status: Acute In addition to oral glucocorticoids patient should be prescribed Symbicort 160/4.5 2 puffs twice a day she should be given a spacer and instruction with respiratory therapy and discharged with this medication we will optimize her regimen in the outpatient setting Qualifiers: Asthma severity: mild Asthma persistence: unspecified Qualified Code(s): J45.901 - Unspecified asthma with (acute) exacerbation (3) Acute and chronic respiratory failure with hypoxia Current Visit: Yes Status: Acute Wean FiO2 down to keep oxygen saturation around 92-94% Subjective Principal diagnosis: Pneumonia Interval history: MS Merida was evaluated in room she was sitting in a chair exceed complaining of breathing treatment. Says that she is really little bit better when she is sitting in the chair but still very dyspneic on any type of exertion. Although her white count is elevated she has not had any fevers she denies any chills cough or sputum production denies any hemoptysis Objective PUL Vital signs: Last Vital Signs Temp 97.7 F 01/31/18 10:59 Pulse 77 01/31/18 10:59 Resp 14 01/31/18 10:59 BP 131/70 01/31/18 10:59 Pulse Ox 92 01/31/18 10:59 General appearance: no acute distress Eyes: nonicteric Neck: supple Effort: mildly labored Auscultation: bilateral: diminished breath sounds (in lower lung acevedo), wheezes (Faint expiratory wheeze in the right upper lung field but improved from previous day's examination) Cardiovascular: irregular rhythm Gastrointestinal: normoactive bowel sounds Integumentary: normal Extremities: edema Musculoskeletal: no deformities normal mental status, non-focal exam mood appropriate Results - Laboratory Findings CBC and BMP: 01/31/18 04:14 01/31/18 04:14 ABG ABG pH 7.41 pH Units (7.32-7.45) 01/28/18 18:53 ABG pCO2 46 mmHg (35-45) H 01/28/18 18:53 ABG pO2 69 mmHg (85-104) L 01/28/18 18:53 ABG O2 Saturation 94 % (95-98) L 01/28/18 18:53 PT/INR, D-dimer PT 32.1 Seconds (9.4-12.1) H 01/31/18 04:14 Abnormal lab findings: Abnormal lab results WBC 20.9 K/mcL (4.3-11.1) H 01/31/18 04:14 RBC 3.66 M/mcL (3.82-4.97) L 01/31/18 04:14 Hgb 10.0 g/dL (11.5-15.4) L 01/31/18 04:14 Hct 32.3 % (35.3-44.9) L 01/31/18 04:14 MCH 27.3 pg (28.0-33.3) L 01/31/18 04:14 MCHC 31.0 g/dL (31.6-35.5) L 01/31/18 04:14 RDW 15.9 % (11.5-14.5) H 01/31/18 04:14 MPV 8.7 fL (9.4-12.4) L 01/31/18 04:14 Immature Gran % 5.0 % (0-4) H 01/31/18 04:14 Neutrophils # 17.9 K/mcL (1.6-8.9) H 01/31/18 04:14 Nucleated RBCs/100 WBC 0.1 /100 WBC (0) H 01/31/18 04:14 PT 32.1 Seconds (9.4-12.1) H 01/31/18 04:14 ABG pCO2 46 mmHg (35-45) H 01/28/18 18:53 ABG pO2 69 mmHg (85-104) L 01/28/18 18:53 ABG HCO3 29 mEq/L (21-27) H 01/28/18 18:53 ABG Total CO2 31 mEq/L (20-26) H 01/28/18 18:53 ABG O2 Saturation 94 % (95-98) L 01/28/18 18:53 ABG Base Excess 4 mEq/L (-2 to 3) H 01/28/18 18:53 BUN 30 mg/dL (8-23) H 01/31/18 04:14 BUN/Creatinine Ratio 37 (6-26) H 01/31/18 04:14 Glucose 255 mg/dL (70-105) H 01/31/18 04:14 POC Glucose 212 mg/dL (70-99) H 01/31/18 07:40 Calculated Osmolality 309 (280-300) H 01/31/18 04:14 Urine Protein 30 mg/dL (Neg-Trace) H 01/29/18 10:25 Urine Glucose (UA) 500 mg/dL (Normal) H 01/29/18 10:25 Urine Ketones Trace mg/dL (Negative) H 01/29/18 10:25 Ur Squamous Epith Cells Many per lpf (None-Few) H 01/29/18 10:25 - Microbiology Findings Microbiology Findings: Microbiology, Last 48 Hours 01/29/18 10:25 Legionella Antigen - Final Urine,Clean Catch 01/29/18 10:25 Streptococcus pneumoniae Antigen (M - Final Urine,Clean Catch - Clinical Findings Intake & Output: Intake & Output 01/30/18 01/31/18 01/31/18 23:59 07:59 15:59 Intake Total 100 / 100 200 / 200 220 / 220 Output Total 0 / 0 250 / 250 Balance 100 / 100 -50 / -50 220 / 220 Weight 110.5 kg Consult Discharge Plan - Plan Referrals: Aleksandar Strickland DO [Primary Care Provider] -
--- NOTE | 2018-01-31 18:48 | Internal Med Progress Note ---
Hospitalist Progress Note - Encounter Date of Encounter: 01/31/18 Time of Encounter: 17:00 - Subjective Interval History: Patient seen and examined today. She continues to have dyspnea at rest and cough with occasional yellow phlegm. She feels congested. She says she does not feel she is ready to go home. She declined to have a bronchoscopy earlier today while talking to pulmonology. I have encouraged her to reconsider this decision so her chances of getting better may increase. - Exam Vitals: Temp Pulse Resp BP Pulse Ox 97.7 F 77 14 131/70 96 01/31/18 10:59 01/31/18 10:59 01/31/18 15:51 01/31/18 10:59 01/31/18 15:51 Exam: General appearance: No acute distress, A&O X 3, 3 L oxygen by nasal cannula Head exam: Atraumatic Eye exam: EOMI, PERRLA ENT exam: Moist oral mucosa Neck nontender, supple Respiratory exam: Crepitations bilaterally more on the right side but no wheezing Cardiovascular exam: Regular rate and rhythm, no systolic murmur Abdominal exam: Soft, nontender, nondistended, positive bowel sounds Extremities exam: No calf tenderness, trace pedal edema Present Skin-no rash, warm, dry, intact Neurological exam: CN II-XII intact, no focal deficits. No facial droop. Normal speech. - Assessment and Plan (1) Pneumonia Current Visit: Yes Status: Acute Assessment and Plan: Healthcare associated most likely as patient had recent hospitalization 4 weeks ago. Worsening of pneumonia with multifocal worsening on CT. continue Zosyn. Negative nasal swab report for MRSA . influenza negative, urine Legionella and strep pneumoniae negative. No growth -blood culture, sputum culture, urine culture . Continue oxygen, DuoNeb, spirometry , consulted respiratory therapist. reviewed abrasive water jet cutter operator note and seems like abrasive water jet cutter operator discussed the risk and benefits , pros and cons about possibility of bronchoscopy with transbronchial biopsy but patient chose conservative management. Behavioral Scientist recommended to continue IV antibiotic while inpatient and advised to switch oral prednisone 50 mg daily for next 2 weeks and further taper after follow-up in pulmonary clinic. Patient needs to follow pulmonary clinic within 2 weeks and repeat imaging within 4 weeks. Will plan to discharge patient on Augmentin 10 days course. As patient has elevated white count and blood glucose level therefore will shweta nue to monitor and follow reports tomorrow. Pt does not feel she is ready to go home yet. I have encouraged her to re consider bronchoscopy. She is not agreeable. (2) Atrial fibrillation Current Visit: Yes Status: Acute Assessment and Plan: Normal sinus rhythm at times. Is status post radioablation and has been under of cardiologists at [place]. Patient is on the loop recorder at present. Echocardiogram done in December 2017 with finding of EF 60-65% and mild concentric LVH, moderate LVEDD, left atrium mildly dilated, moderate pulmonary hypertension, [id number] TR. Continue to monitor in telemetry as patient is having acute infection. INR therapeutic and continue warfarin. INR monitori ng. Patient takes Coumadin 2.5 mg daily except Sunday-none (3) Shortness of breath Current Visit: No Status: Acute Assessment and Plan: Stable. Oxygen dependent since last admission. ABG reviewed. Most likely due to worsening pneumonia and underlying COPD component therefore IV Solu-Medrol added. Continue DuoNeb oxygen supplementation. Patient will require home oxygen evaluation given discharge. Pulmonologists on board. BNP within normal limit. Echocardiogram done recently December 2017 with above-mentioned findings. (4) HLD (hyperlipidemia) Current Visit: No Status: Chronic Assessment and Plan: Continue home medicine. Is stable (5) HTN (hypertension) Current Visit: No Status: Chronic Assessment and Plan: Continue home medicine. Close monitoring (6) CHF (congestive heart failure) Current Visit: Yes Status: Acute Assessment and Plan: Does not appear in acute CHF exacerbation and BNP also negative. Continue home medicine with close monitoring. (7) DVT prophylaxis Current Visit: No Status: Acute Assessment and Plan: Continue warfarin. Therapeutic INR - Time Spent with Patient Total time spent is greater than 50% in coordination of care (as documented) at patient's floor/unit and/or counseling patient: 25 - 35 minutes Internal Medicine: Result - Labs CBC & Chem 7: 01/31/18 04:14 01/31/18 04:14 Labs: Short CBC 01/31/18 Range/Units 04:14 WBC 20.9 H (4.3-11.1) K/mcL Hgb 10.0 L (11.5-15.4) g/dL Hct 32.3 L (35.3-44.9) % Plt Count 354 (140-400) K/mcL Neutrophils # 17.9 H (1.6-8.9) K/mcL BMP 01/31/18 04:14 Sodium 142 Potassium 3.7 Chloride 107 Carbon Dioxide 24 BUN 30 H Creatinine 0.82 Glucose 255 H Calcium 8.6 - ABG Interpretation ABG results: ABG ABG pH 7.41 pH Units (7.32-7.45) 01/28/18 18:53 ABG pCO2 46 mmHg (35-45) H 01/28/18 18:53 ABG pO2 69 mmHg (85-104) L 01/28/18 18:53 ABG O2 Saturation 94 % (95-98) L 01/28/18 18:53 PT/INR, D-dimer PT 32.1 Seconds (9.4-12.1) H 01/31/18 04:14 Consult Discharge Plan - Plan Referrals: Aleksandar Strickland DO [Primary Care Provider] - (1) Pneumonia Qualifiers: Pneumonia type: due to unspecified organism Laterality: bilateral Qualified Code(s): J18.9 - Pneumonia, unspecified organism
[2018-02-01 04:02] LABS: Hematocrit 29.7 % (35.3-44.9); Hemoglobin 9.3 g/dL (11.5-15.4); Mean Corpuscular HGB Conc 31.3 g/dL (31.6-35.5); Mean Corpuscular Hemoglobin 27.6 pg (28.0-33.3); Mean Corpuscular Volume 88.1 fL (83.0-100.0); Mean Platelet Volume 8.5 fL (9.4-12.4); Nucleated Red Blood Cells 0.2 /100 WBC (0); Platelet Count 268 K/mcL (140-400); Red Blood Count 3.37 M/mcL (3.82-4.97)
[2018-02-01] MEDS: Ipratropium/Albuterol Neb 3 ML IH SCH ×4 (04:08→22:26)
[2018-02-01 04:19] LABS: BUN/Creatinine Ratio 41 (6-26); Blood Urea Nitrogen 28 mg/dL (8-23); Calcium 8.2 mg/dL (8.6-10.3); Carbon Dioxide 28 mEq/L (23-29); Chloride 109 mEq/L (98-107); Glucose 179 mg/dL (70-105); Lymphocytes # 2.6 K/mcL (0.6-4.6); Monocytes # 0.7 K/mcL (0.0-1.3); Neutrophils # 12.9 K/mcL (1.6-8.9); Osmolality,Calculated 306 (280-300); Platelet Estimate Normal (Normal); Potassium 3.8 mEq/L (3.5-5.1); Sodium 143 mEq/L (136-145); eGFR For Non-African Americans > 60 (> 60)
[2018-02-01 06:17] LABS: INR 3.1; Prothrombin Time 34.7 Seconds (9.4-12.1)
[2018-02-01] MEDS: Diltiazem CD (24hr) 180 MG CAPSULE PO SCH (08:12)
[2018-02-01] MEDS: predniSONE 20 MG TABLET PO SCH (08:12)
[2018-02-01] MEDS: Metoprolol XL (24 HR) Succ 25 MG TAB.ER.24H PO SCH (08:13)
[2018-02-01] MEDS: DAILY FIBER PO SCH (08:13)
[2018-02-01] MEDS: Aspirin 81 MG TAB.CHEW PO SCH (08:13)
[2018-02-01] MEDS: Insulin LISPRO 300 UNITS/3 ML VIAL SQ SCH ×4 (08:13→21:11)
[2018-02-01] MEDS: Piperacillin/Tazobactam 3.375 GM in 0.9 % Sodium Chloride Mini Bag 100 ML IVPB SCH ×3 (08:14→23:37)
--- NOTE | 2018-02-01 09:10 | Pulmonology Progress Note ---
<Raffi Collazo S - Last Filed: 02/01/18 14:02> Date of Encounter: 02/01/18 Time of Encounter: 09:04 Assessment and Plan (1) Multifocal pneumonia Current Visit: Yes Status: Acute Pt presents increasing SOB from baseline - on 2 L home oxygen, turned up to 3L - increasing sputum production and cough CT scan from December admission showed - multifocal airspace disease of R > L, increased mediastinal and hilar nodes. CT scan on admission - partial collapse of right middle/right lower lobes with superimposed air brochograms suspicious for pneumonia. - New patchy areas of nodular consolidative opacity may represent developing alveolar edema vs multifocal pneumonia. - Increased interstitial edema vs pneumonia. Respiratory panel negative BK, CCP, RF factors WNL on last admission BAL on last admission showed inflamed airways, negative micro This is thought to be due an inflammatory condition, like cryptogenic organizing pneumonia Plan: - continue zosyn until discharge - continue duonebs - solumedrol has been discontinued - keep O2 sat >88% - blood cx pending - pulmonology recommendations as follows: discharge the patient with a 10day course of Augmentin discharge the pt with a 50mg PO prednisone tab x 14 days, then taper by 10mg/week until pulmonology follow up will need repeat CT scan in 4-6wks attending discussed with pt the pros and cons, risks vs benefits of bronchoscopy with biopsy pt has hx of adverse events when off blood thinner and bled quite a lot on last bronch, which only involved BAL no bx pt has chosen the route of staying conservative for possible IPF with steroids and a trial of abx - one dose of IVP lasix 40mg today - follow up with pulmonology as an outpatient basis (2) Acute and chronic respiratory failure with hypoxia Current Visit: Yes Status: Acute Keep O2 sat >88% (3) Asthma Current Visit: No Status: Chronic PO steroids, symbicort 2 puffs daily with spacer Qualifiers: Asthma severity: unspecified severity Asthma persistence: unspecified Asthma complication type: uncomplicated Qualified Code(s): J45.909 - Unspecified asthma, uncomplicated (4) Interstitial lung disease Current Visit: No Status: Suspected Suspected, see plan as above (5) Obesity Current Visit: Yes Status: Acute BMI 40.5 Qualifiers: Obesity type: unspecified obesity type Obesity classification: adult class 2 (BMI 35 - 39.9) Serious obesity comorbidity presence: unspecified whether serious comorbidity present Body mass index: BMI 39.0-39.9 Qualified Code(s): E66.9 - Obesity, unspecified; Z68.39 - Body mass index (BMI) 39.0-39.9, adult (6) Diarrhea Current Visit: Yes Status: Acute c/o diarrhea - most likely secondary to abx - start pt on probiotics TID Qualifiers: Diarrhea type: unspecified type Qualified Code(s): R19.7 - Diarrhea, unspecified Subjective Principal diagnosis: Pneumonia Interval history: Patient is seen at bedside. She states the steroids are making her feel better but that she is still having some trouble breathing. Any exertion makes her short of breath. She denies any active chest pain, fever/chills, N/V/D. She is still coughing up a little bit of mucus but it is clear in color. Objective PUL Vital signs: Last Vital Signs Temp 98.6 F 02/01/18 07:07 Pulse 75 02/01/18 07:07 Resp 15 02/01/18 07:07 BP 161/80 02/01/18 07:07 Pulse Ox 93 02/01/18 07:07 General appearance: no acute distress, appears uncomfortable Eyes: nonicteric ENT: oropharynx moist Mallampati (class): 3 Neck: supple Effort: mildly labored Auscultation: bilateral: diminished breath sounds (minimal) Cardiovascular: regular rate and rhythm Gastrointestinal: normoactive bowel sounds, soft, non-tender, non-distended Integumentary: normal Extremities: no cyanosis Musculoskeletal: no deformities normal mental status, non-focal exam mood appropriate, affect normal Results - Laboratory Findings CBC and BMP: 02/01/18 03:52 02/01/18 03:52 ABG ABG pH 7.41 pH Units (7.32-7.45) 01/28/18 18:53 ABG pCO2 46 mmHg (35-45) H 01/28/18 18:53 ABG pO2 69 mmHg (85-104) L 01/28/18 18:53 ABG O2 Saturation 94 % (95-98) L 01/28/18 18:53 PT/INR, D-dimer PT 34.7 Seconds (9.4-12.1) H 02/01/18 04:00 Abnormal lab findings: Abnormal lab results WBC 16.5 K/mcL (4.3-11.1) H 02/01/18 03:52 RBC 3.37 M/mcL (3.82-4.97) L 02/01/18 03:52 Hgb 9.3 g/dL (11.5-15.4) L 02/01/18 03:52 Hct 29.7 % (35.3-44.9) L 02/01/18 03:52 MCH 27.6 pg (28.0-33.3) L 02/01/18 03:52 MCHC 31.3 g/dL (31.6-35.5) L 02/01/18 03:52 RDW 16.0 % (11.5-14.5) H 02/01/18 03:52 MPV 8.5 fL (9.4-12.4) L 02/01/18 03:52 Immature Gran % 5.0 % (0-4) H 01/31/18 04:14 Metamyelocytes % 2.0 % (0) H 02/01/18 03:52 Neutrophils # 12.9 K/mcL (1.6-8.9) H 02/01/18 03:52 Nucleated RBCs/100 WBC 0.2 /100 WBC (0) H 02/01/18 03:52 PT 34.7 Seconds (9.4-12.1) H 02/01/18 04:00 ABG pCO2 46 mmHg (35-45) H 01/28/18 18:53 ABG pO2 69 mmHg (85-104) L 01/28/18 18:53 ABG HCO3 29 mEq/L (21-27) H 01/28/18 18:53 ABG Total CO2 31 mEq/L (20-26) H 01/28/18 18:53 ABG O2 Saturation 94 % (95-98) L 01/28/18 18:53 ABG Base Excess 4 mEq/L (-2 to 3) H 01/28/18 18:53 Chloride 109 mEq/L (98-107) H 02/01/18 03:52 BUN 28 mg/dL (8-23) H 02/01/18 03:52 BUN/Creatinine Ratio 41 (6-26) H 02/01/18 03:52 Glucose 179 mg/dL (70-105) H 02/01/18 03:52 POC Glucose 183 mg/dL (70-99) H 01/31/18 11:45 Calculated Osmolality 306 (280-300) H 02/01/18 03:52 Calcium 8.2 mg/dL (8.6-10.3) L 02/01/18 03:52 Urine Protein 30 mg/dL (Neg-Trace) H 01/29/18 10:25 Urine Glucose (UA) 500 mg/dL (Normal) H 01/29/18 10:25 Urine Ketones Trace mg/dL (Negative) H 01/29/18 10:25 Ur Squamous Epith Cells Many per lpf (None-Few) H 01/29/18 10:25 - Clinical Findings Intake & Output: Intake & Output 01/31/18 02/01/18 02/01/18 23:59 07:59 15:59 Intake Total 0 / 0 100 / 100 Output Total 0 / 0 800 / 800 Balance 0 / 0 -700 / -700 Weight 110.3 kg Consult Discharge Plan - Plan Referrals: Aleksandar Strickland DO [Primary Care Provider] - <Harinder Obando - Last Filed: 02/01/18 15:20> Date of Encounter: 02/01/18 Assessment and Plan (1) Pneumonia Current Visit: Yes Status: Acute Qualifiers: Pneumonia type: due to unspecified organism Laterality: bilateral Qualified Code(s): J18.9 - Pneumonia, unspecified organism (2) Asthma exacerbation Current Visit: Yes Status: Acute Qualifiers: Asthma severity: mild Asthma persistence: unspecified Qualified Code(s): J45.901 - Unspecified asthma with (acute) exacerbation (3) Acute and chronic respiratory failure with hypoxia Current Visit: Yes Status: Acute Objective PUL Vital signs: Last Vital Signs Temp 98.4 F 02/01/18 11:18 Pulse 74 02/01/18 11:18 Resp 15 02/01/18 11:18 BP 156/84 02/01/18 11:18 Pulse Ox 93 02/01/18 11:18 Results - Laboratory Findings CBC and BMP: 02/01/18 03:52 02/01/18 03:52 ABG ABG pH 7.41 pH Units (7.32-7.45) 01/28/18 18:53 ABG pCO2 46 mmHg (35-45) H 01/28/18 18:53 ABG pO2 69 mmHg (85-104) L 01/28/18 18:53 ABG O2 Saturation 94 % (95-98) L 01/28/18 18:53 PT/INR, D-dimer PT 34.7 Seconds (9.4-12.1) H 02/01/18 04:00 Abnormal lab findings: Abnormal lab results WBC 16.5 K/mcL (4.3-11.1) H 02/01/18 03:52 RBC 3.37 M/mcL (3.82-4.97) L 02/01/18 03:52 Hgb 9.3 g/dL (11.5-15.4) L 02/01/18 03:52 Hct 29.7 % (35.3-44.9) L 02/01/18 03:52 MCH 27.6 pg (28.0-33.3) L 02/01/18 03:52 MCHC 31.3 g/dL (31.6-35.5) L 02/01/18 03:52 RDW 16.0 % (11.5-14.5) H 02/01/18 03:52 MPV 8.5 fL (9.4-12.4) L 02/01/18 03:52 Immature Gran % 5.0 % (0-4) H 01/31/18 04:14 Metamyelocytes % 2.0 % (0) H 02/01/18 03:52 Neutrophils # 12.9 K/mcL (1.6-8.9) H 02/01/18 03:52 Nucleated RBCs/100 WBC 0.2 /100 WBC (0) H 02/01/18 03:52 PT 34.7 Seconds (9.4-12.1) H 02/01/18 04:00 ABG pCO2 46 mmHg (35-45) H 01/28/18 18:53 ABG pO2 69 mmHg (85-104) L 01/28/18 18:53 ABG HCO3 29 mEq/L (21-27) H 01/28/18 18:53 ABG Total CO2 31 mEq/L (20-26) H 01/28/18 18:53 ABG O2 Saturation 94 % (95-98) L 01/28/18 18:53 ABG Base Excess 4 mEq/L (-2 to 3) H 01/28/18 18:53 Chloride 109 mEq/L (98-107) H 02/01/18 03:52 BUN 28 mg/dL (8-23) H 02/01/18 03:52 BUN/Creatinine Ratio 41 (6-26) H 02/01/18 03:52 Glucose 179 mg/dL (70-105) H 02/01/18 03:52 POC Glucose 183 mg/dL (70-99) H 01/31/18 11:45 Calculated Osmolality 306 (280-300) H 02/01/18 03:52 Calcium 8.2 mg/dL (8.6-10.3) L 02/01/18 03:52 Urine Protein 30 mg/dL (Neg-Trace) H 01/29/18 10:25 Urine Glucose (UA) 500 mg/dL (Normal) H 01/29/18 10:25 Urine Ketones Trace mg/dL (Negative) H 01/29/18 10:25 Ur Squamous Epith Cells Many per lpf (None-Few) H 01/29/18 10:25 - Clinical Findings Intake & Output: Intake & Output 01/31/18 02/01/18 02/01/18 23:59 07:59 15:59 Intake Total 0 / 0 100 / 100 780 / 780 Output Total 0 / 0 800 / 800 200 / 200 Balance 0 / 0 -700 / -700 580 / 580 Weight 110.3 kg - Attending Attestation I examined this patient and my medical decision-making was reviewed with the Resident Physician. I agree with the documented findings, disposition and treatment plan as described except to the extent set forth below. We independently had [id number] contact with the patient Patient seen and examined at bedside Labs, radiology, chart personally reviewed. Impression: Acute hypoxic respiratory failure Pneumonia Cardiogenic (hydrostatic) pulmonary edema Recs: White count trending down today which is encouraging I think that her leukocytosis is steroid induced. She remains requiring significant amount of oxygen especially with ambulation this may be related to underlying inflammato ry/infectious process but acutely I suspect a component of cardiogenic edema and recommend more aggressive diuresis such that she is net -1 L in the next 12-24 hours. Pulmonary will continue to follow
[2018-02-01] MEDS: Budesonide/Formoterol 160/4.5 1 PUFF INH IH SCH ×2 (11:07→22:27)
--- NOTE | 2018-02-01 11:08 | Internal Med Progress Note ---
Hospitalist Progress Note - Encounter Date of Encounter: 02/01/18 Time of Encounter: 11:10 - Subjective Interval History: Patient seen and examined today. She continues to have dyspnea at rest and cough with occasional yellow phlegm. She feels congested. She says she feels a little better today than yesterday. She declined to have a bronchoscopy earlier today while talking to pulmonology. Her WBC ct is still abnormal though trending down. Maybe she will be ready for discharge in a day or two. - Exam Vitals: Temp Pulse Resp BP Pulse Ox 98.6 F 75 15 161/80 93 02/01/18 07:07 02/01/18 07:07 02/01/18 07:07 02/01/18 07:07 02/01/18 07:07 Exam: General appearance: No acute distress, A&O X 3, 3 L oxygen by nasal cannula Head exam: Atraumatic Eye exam: EOMI, PERRLA ENT exam: Moist oral mucosa Neck nontender, supple Respiratory exam: Crepitations bilaterally more on the right side but no wheezing Cardiovascular exam: Regular rate and rhythm, no systolic murmur Abdominal exam: Soft, nontender, nondistended, positive bowel sounds Extremities exam: Trace pedal edema Present Skin-no rash, warm, dry, intact Neurological exam: CN II-XII intact, no focal deficits. No facial droop. Normal speech. - Assessment and Plan (1) Pneumonia Current Visit: Yes Status: Acute Assessment and Plan: Healthcare associated most likely as patient had recent hospitalization 4 weeks ago. Worsening of pneumonia with multifocal worsening on CT. continue Zosyn. Negative nasal swab report for MRSA . influenza negative, urine Legionella and strep pneumoniae negative. No growth -blood culture, sputum culture, urine culture . Continue oxygen, DuoNeb, spirometry , consulted respiratory therapist. reviewed automotive parts clerk note and seems like automotive parts clerk discussed the risk and benefits , pros and cons about possibility of bronchoscopy with transbronchial biopsy but patient chose conservative management. Insurance Claims Supervisor recommended to continue IV antibiotic while inpatient and advised to switch oral prednisone 50 mg daily for next 2 weeks and further taper after follow-up in pulmonary clinic. Patient needs to follow pulmonary clinic within 2 weeks and repeat imaging within 4 weeks. Will plan to discharge patient on Augmentin 10 days course. As patient has elevated white count and blood glucose level therefore will continue to monitor and follow reports tomorrow. (2) Atrial fibrillation Current Visit: Yes Status: Acute Assessment and Plan: Normal sinus rhythm at times. Is status post radioablation and has been under of cardiologists at [place]. Patient is on the loop recorder at present. Echocardiogram done in December 2017 with finding of EF 60-65% and mild concentric LVH, moderate LVEDD, left atrium mildly dilated, moderate pulmonary hypertension, [id number] TR. Continue to monitor in telemetry as patient is having acute infection. INR therapeutic and continue warfarin. INR monitoring. Patient takes Coumadin 2.5 mg daily except Sunday-none (3) Shortness of breath Current Visit: No Status: Acute Assessment and Plan: Stable. Oxygen dependent since last admission. ABG reviewed. Most likely due to worsening pneumonia and underlying COPD component therefore IV Solu-Medrol added. Continue DuoNeb oxygen supplementation. Patient will require home oxygen evaluation given discharge. Pulmonologists on board. BNP within normal limit. Echocardiogram done recently December 2017 with above-mentioned findings. (4) HLD (hyperlipidemia) Current Visit: No Status: Chronic Assessment and Plan: Continue home medicine. Is stable (5) HTN (hypertension) Current Visit: No Status: Chronic Assessment and Plan: Continue home medicine. Close monitoring (6) CHF (congestive heart failure) Current Visit: Yes Status: Acute Assessment and Plan: Does not appear in acute CHF exacerbation and BNP also negative. Continue home medicine with close monitoring. (7) DVT prophylaxis Current Visit: No Status: Acute Assessment and Plan: Continue warfarin. Therapeutic INR - Time Spent with Patient Total time spent is greater than 50% in coordination of care (as documented) at patient's floor/unit and/or counseling patient: 25 - 35 minutes Internal Medicine: Result - Labs CBC & Chem 7: 02/01/18 03:52 02/01/18 03:52 Labs: Short CBC 02/01/18 Range/Units 03:52 WBC 16.5 H (4.3-11.1) K/mcL Hgb 9.3 L (11.5-15.4) g/dL Hct 29.7 L (35.3-44.9) % Plt Count 268 (140-400) K/mcL Neutrophils # 12.9 H (1.6-8.9) K/mcL BMP 02/01/18 03:52 Sodium 143 Potassium 3.8 Chloride 109 H Carbon Dioxide 28 BUN 28 H Creatinine 0.68 Glucose 179 H Calcium 8.2 L - ABG Interpretation ABG results: ABG ABG pH 7.41 pH Units (7.32-7.45) 01/28/18 18:53 ABG pCO2 46 mmHg (35-45) H 01/28/18 18:53 ABG pO2 69 mmHg (85-104) L 01/28/18 18:53 ABG O2 Saturation 94 % (95-98) L 01/28/18 18:53 PT/INR, D-dimer PT 34.7 Seconds (9.4-12.1) H 02/01/18 04:00 Consult Discharge Plan - Plan Referrals: Aleksandar Strickland DO [Primary Care Provider] - (1) Pneumonia Qualifiers: Pneumonia type: due to unspecified organism Laterality: bilateral Qualified Code(s): J18.9 - Pneumonia, unspecified organism
[2018-02-01] MEDS ORDERED: Furosemide 40 MG/4 ML VIAL IVP ONE (13:39)
[2018-02-01] MEDS: Lactobacillus 1 EACH CAP.SPRINK PO SCH ×2 (15:02→19:54)
[2018-02-02 04:10] LABS: Hemoglobin 9.6 g/dL (11.5-15.4); Mean Corpuscular Volume 87.3 fL (83.0-100.0); Mean Platelet Volume 8.9 fL (9.4-12.4); Nucleated Red Blood Cells 0.6 /100 WBC (0); Platelet Count 309 K/mcL (140-400); Red Blood Count 3.55 M/mcL (3.82-4.97); Red Cell Distribution Width 16.2 % (11.5-14.5)
[2018-02-02 04:26] LABS: BUN/Creatinine Ratio 32 (6-26); Blood Urea Nitrogen 27 mg/dL (8-23); Calcium 8.5 mg/dL (8.6-10.3); Carbon Dioxide 30 mEq/L (23-29); Chloride 105 mEq/L (98-107); Glucose 188 mg/dL (70-105); Osmolality,Calculated 306 (280-300); Potassium 3.7 mEq/L (3.5-5.1); Sodium 143 mEq/L (136-145); eGFR For Non-African Americans > 60 (> 60)
[2018-02-02] MEDS: Ipratropium/Albuterol Neb 3 ML IH SCH ×4 (04:37→21:01)
[2018-02-02 06:10] LABS: Lymphocytes # 1.8 K/mcL (0.6-4.6); Monocytes # 1.2 K/mcL (0.0-1.3); Neutrophils # 11.8 K/mcL (1.6-8.9); Platelet Estimate Normal (Normal)
[2018-02-02 06:11] LABS: Anisocytosis 1+ (Not Present); Hypochromasia Present (Not Present)
[2018-02-02 06:32] LABS: INR 2.9; Prothrombin Time 32.4 Seconds (9.4-12.1)
--- NOTE | 2018-02-02 06:51 | Pulmonology Progress Note ---
Date of Encounter: 02/02/18 Time of Encounter: 06:51 Assessment and Plan (1) Acute and chronic respiratory failure with hypoxia Current Visit: Yes Status: Acute Wean FiO2 down to keep oxygen saturation around 92-94% I suspect this is a combination of factors including what appears to be inflammatory pneumonia likely organizing pneumonia complicated by hydrostatic pulmonary edema Degree of hypoxia on ambulation remains concerning she has been anticoagulated the entire time and initial a CTA was also negative for filling defect Making of pulmonary embolus in the acute setting unlikely On need continuation of out of bed to chair incentive spirometry and ambulation with oxygen and monitoring to mitigate the effects of VQ mismatch from atelectasis (2) Pneumonia Current Visit: Yes Status: Acute I suspect this is an inflammatory conditions as his cryptogenic organizing pneumonia Persistent leukocytosis but trending down I suspect this is related to glucocorticoid effect Continue Zosyn with planned to de-escalate to Augmentin complete 10 day course 50 mg prednisone until clinic follow-up in pulmonary we can decide tapering course which would likely be weekly or biweekly We will need repeat CT scan in 4-6 weeks Qualifiers: Pneumonia type: due to unspecified organism Lung location: unspecified part of lung Qualified Code(s): J18.9 - Pneumonia, unspecified organism (3) Asthma exacerbation Current Visit: Yes Status: Acute In addition to oral glucocorticoids patient should be prescribed Symbicort 160/4.5 2 puffs twice a day she should be given a spacer and instruction with respiratory therapy and discharged with this medication we will optimize her regimen in the outpatient setting Qualifiers: Asthma severity: mild Asthma persistence: unspecified Qualified Code(s): J45.901 - Unspecified asthma with (acute) exacerbation (4) (HFpEF) heart failure with preserved ejection fraction Current Visit: Yes Status: Acute I have increased her diuretic to Lasix IV 40 mg twice a day She has a mild contraction on labs today will need to follow this closely but renal function remains appropriate would favor continuation of active diuresis She will need daily renal function testing as well as magnesium Subjective Principal diagnosis: Pneumonia Interval history: She states that she is breathing a little bit better today she did walk across the room and had noted desaturation into the high 70s so not clearly back to baseline as of yet but says that her breathing is better than the day before. She was having some increased stools the previous days and she still having increased stools but there is more form to them than previous days. Remains afebrile. Received a dose of IV Lasix with good response chest pains that she feels a little bit better after that Objective PUL Vital signs: Last Vital Signs Temp 97.6 F 02/01/18 20:22 Pulse 71 02/02/18 03:52 Resp 16 02/02/18 04:37 BP 152/87 02/02/18 03:52 Pulse Ox 96 02/02/18 04:37 General appearance: no acute distress Eyes: nonicteric Auscultation: right: diminished breath sounds, bilateral: rales Cardiovascular: irregular rhythm Gastrointestinal: normoactive bowel sounds, soft, non-tender Integumentary: normal Extremities: edema Musculoskeletal: no deformities normal mental status, non-focal exam mood appropriate Results - Laboratory Findings CBC and BMP: 02/02/18 03:45 02/02/18 03:45 ABG ABG pH 7.41 pH Units (7.32-7.45) 01/28/18 18:53 ABG pCO2 46 mmHg (35-45) H 01/28/18 18:53 ABG pO2 69 mmHg (85-104) L 01/28/18 18:53 ABG O2 Saturation 94 % (95-98) L 01/28/18 18:53 PT/INR, D-dimer PT 32.4 Seconds (9.4-12.1) H 02/02/18 06:00 Abnormal lab findings: Abnormal lab results WBC 14.8 K/mcL (4.3-11.1) H 02/02/18 03:45 RBC 3.55 M/mcL (3.82-4.97) L 02/02/18 03:45 Hgb 9.6 g/dL (11.5-15.4) L 02/02/18 03:45 Hct 31.0 % (35.3-44.9) L 02/02/18 03:45 MCH 27.0 pg (28.0-33.3) L 02/02/18 03:45 MCHC 31.0 g/dL (31.6-35.5) L 02/02/18 03:45 RDW 16.2 % (11.5-14.5) H 02/02/18 03:45 MPV 8.9 fL (9.4-12.4) L 02/02/18 03:45 Immature Gran % 5.0 % (0-4) H 01/31/18 04:14 Metamyelocytes % 2.0 % (0) H 02/01/18 03:52 Neutrophils # 11.8 K/mcL (1.6-8.9) H 02/02/18 03:45 Nucleated RBCs/100 WBC 0.6 /100 WBC (0) H 02/02/18 03:45 Hypochromasia Present (Not Present) A 02/02/18 03:45 Anisocytosis 1+ (Not Present) A 02/02/18 03:45 PT 32.4 Seconds (9.4-12.1) H 02/02/18 06:00 ABG pCO2 46 mmHg (35-45) H 01/28/18 18:53 ABG pO2 69 mmHg (85-104) L 01/28/18 18:53 ABG HCO3 29 mEq/L (21-27) H 01/28/18 18:53 ABG Total CO2 31 mEq/L (20-26) H 01/28/18 18:53 ABG O2 Saturation 94 % (95-98) L 01/28/18 18:53 ABG Base Excess 4 mEq/L (-2 to 3) H 01/28/18 18:53 Carbon Dioxide 30 mEq/L (23-29) H 02/02/18 03:45 BUN 27 mg/dL (8-23) H 02/02/18 03:45 BUN/Creatinine Ratio 32 (6-26) H 02/02/18 03:45 Glucose 188 mg/dL (70-105) H 02/02/18 03:45 POC Glucose 177 mg/dL (70-99) H 02/01/18 11:21 Calculated Osmolality 306 (280-300) H 02/02/18 03:45 Calcium 8.5 mg/dL (8.6-10.3) L 02/02/18 03:45 Urine Protein 30 mg/dL (Neg-Trace) H 01/29/18 10:25 Urine Glucose (UA) 500 mg/dL (Normal) H 01/29/18 10:25 Urine Ketones Trace mg/dL (Negative) H 01/29/18 10:25 Ur Squamous Epith Cells Many per lpf (None-Few) H 01/29/18 10:25 - Clinical Findings Intake & Output: Intake & Output 02/01/18 02/01/18 02/02/18 15:59 23:59 07:59 Intake Total 1020 / 1020 580 / 580 100 / 100 Output Total 900 / 900 1300 / 1300 Balance 120 / 120 -720 / -720 100 / 100 Consult Discharge Plan - Plan Referrals: Aleksandar Strickland DO [Primary Care Provider] -
[2018-02-02] MEDS: Diltiazem CD (24hr) 180 MG CAPSULE PO SCH (08:01)
[2018-02-02] MEDS: Insulin LISPRO 300 UNITS/3 ML VIAL SQ SCH ×4 (08:01→20:03)
[2018-02-02] MEDS: predniSONE 20 MG TABLET PO SCH (08:02)
[2018-02-02] MEDS: Aspirin 81 MG TAB.CHEW PO SCH (08:02)
[2018-02-02] MEDS: Metoprolol XL (24 HR) Succ 25 MG TAB.ER.24H PO SCH (08:02)
[2018-02-02] MEDS: Lactobacillus 1 EACH CAP.SPRINK PO SCH ×3 (08:02→19:54)
[2018-02-02] MEDS: DAILY FIBER PO SCH (08:03)
[2018-02-02] MEDS: Piperacillin/Tazobactam 3.375 GM in 0.9 % Sodium Chloride Mini Bag 100 ML IVPB SCH ×2 (08:03→16:01)
[2018-02-02] MEDS: Budesonide/Formoterol 160/4.5 1 PUFF INH IH SCH ×2 (10:34→21:00)
[2018-02-02] MEDS: Furosemide 40 MG/4 ML VIAL IVP SCH ×2 (13:14→16:10)
[2018-02-02] MEDS ORDERED: *HR* Warfarin 1 MG TABLET PO ONE (18:00)
--- NOTE | 2018-02-02 18:18 | Internal Med Progress Note ---
Hospitalist Progress Note - Encounter Date of Encounter: 02/02/18 Time of Encounter: 13:00 - Subjective Interval History: Patient seen and examined today. She continues to have dyspnea at rest and cough with occasional yellow phlegm. She feels congested. She says she feels a little better today than yesterday. She declined to have a bronchoscopy. Her WBC ct is still abnormal though trending down. Pulmonary has advised to keep her today for further IV diuretics. - Exam Vitals: Temp Pulse Resp BP Pulse Ox 97.8 F 80 16 135/78 96 02/02/18 16:49 02/02/18 16:49 02/02/18 16:49 02/02/18 16:49 02/02/18 16:49 Exam: General appearance: No acute distress, A&O X 3, 3 L oxygen by nasal cannula Head exam: Atraumatic Eye exam: EOMI, PERRLA ENT exam: Moist oral mucosa Neck nontender, supple Respiratory exam: Lungs side clear today with left basilar crackles occasionally. Cardiovascular exam: Regular rate and rhythm, no systolic murmur Abdominal exam: Soft, nontender, nondistended, positive bowel sounds Extremities exam: Trace pedal edema Present Skin-no rash, warm, dry, intact Neurological exam: CN II-XII intact, no focal deficits. No facial droop. Normal speech. - Assessment and Plan (1) Pneumonia Current Visit: Yes Status: Acute Assessment and Plan: (1) Pneumonia Current Visit: Yes Status: Acute Assessment and Plan: Healthcare associated most likely as patient had recent hospitalization 4 weeks ago. Worsening of pneumonia with multifocal worsening on CT. continue Zosyn. Negative nasal swab report for MRSA . influenza negative, urine Legionella and strep pneumoniae negative. No growth -blood culture, sputum culture, urine culture . Continue oxygen, DuoNeb, spirometry , consulted respiratory therapist. reviewed cmo & president note and seems like cmo & president discussed the risk and benefits , pros and cons about possibility of bronchoscopy with transbronchial biopsy but patient chose conservative management. Rehabilitation Liaison recommended to continue IV antibiotic while inpatient and advised to switch oral prednisone 50 mg daily for next 2 weeks and further taper after follow-up in pulmonary clinic. Patient needs to follow pulmonary clinic within 2 weeks and repeat imaging within 4 weeks. Will plan to discharge patient on Augmentin 10 days course. As patient has elevated white count and blood glucose level therefore will continue to monitor and follow reports tomorrow. (2) Atrial fibrillation Current Visit: Yes Status: Acute Assessment and Plan: Normal sinus rhythm at times. Is status post radioablation and has been under of cardiologists at [facility]. Patient is on the loop recorder at present. Echocardiogram done in December 2017 with finding of EF 60-65% and mild concentric LVH, moderate LVEDD, left atrium mildly dilated, moderate pulmonary hypertension, [id number] TR. Continue to monitor in telemetry as patient is having acute infection. INR therapeutic and continue warfarin. INR monitoring. Patient takes Coumadin 2.5 mg daily except Sunday-none (3) Shortness of breath Current Visit: No Status: Acute Assessment and Plan: Stable. Oxygen dependent since last admission. ABG reviewed. Most likely due to worsening pneumonia and underlying COPD component therefore IV Solu-Medrol added. Continue DuoNeb oxygen supplementation. Patient will require home oxygen evaluation given discharge. Pulmonologists on board. BNP within normal limit. Echocardiogram done recently December 2017 with above-mentioned findings. (4) HLD (hyperlipidemia) Current Visit: No Status: Chronic Assessment and Plan: Continue home medicine. Is stable (5) HTN (hypertension) Current Visit: No Status: Chronic Assessment and Plan: Continue home medicine. Close monitoring (6) CHF (congestive heart failure) Current Visit: Yes Status: Acute Assessment and Plan: This is preserved ejection fraction congestive heart failure. Continue patient's IV diuretics and monitor kidney function. (7) DVT prophylaxis Current Visit: No Status: Acute Assessment and Plan: Continue warfarin. Therapeutic INR - Time Spent with Patient Total time spent is greater than 50% in coordination of care (as documented) at patient's floor/unit and/or counseling patient: Internal Medicine: Result - Labs CBC & Chem 7: 02/03/18 03:54 02/03/18 03:54 Labs: Short CBC 02/02/18 Range/Units 03:45 WBC 14.8 H (4.3-11.1) K/mcL Hgb 9.6 L (11.5-15.4) g/dL Hct 31.0 L (35.3-44.9) % Plt Count 309 (140-400) K/mcL Neutrophils # 11.8 H (1.6-8.9) K/mcL BMP 02/02/18 03:45 Sodium 143 Potassium 3.7 Chloride 105 Carbon Dioxide 30 H BUN 27 H Creatinine 0.84 Glucose 188 H Calcium 8.5 L - ABG Interpretation ABG results: ABG ABG pH 7.41 pH Units (7.32-7.45) 01/28/18 18:53 ABG pCO2 46 mmHg (35-45) H 01/28/18 18:53 ABG pO2 69 mmHg (85-104) L 01/28/18 18:53 ABG O2 Saturation 94 % (95-98) L 01/28/18 18:53 PT/INR, D-dimer PT 32.4 Seconds (9.4-12.1) H 02/02/18 06:00 Consult Discharge Plan - Plan Referrals: Aleksandar Strickland DO [Primary Care Provider] - (1) Pneumonia Qualifiers: Pneumonia type: due to unspecified organism Lung location: unspecified part of lung Qualified Code(s): J18.9 - Pneumonia, unspecified organism
[2018-02-03] MEDS: Piperacillin/Tazobactam 3.375 GM in 0.9 % Sodium Chloride Mini Bag 100 ML IVPB SCH ×4 (00:15→23:19)
[2018-02-03 04:15] LABS: Hematocrit 28.5 % (35.3-44.9); Hemoglobin 8.8 g/dL (11.5-15.4); Mean Corpuscular HGB Conc 30.9 g/dL (31.6-35.5); Mean Corpuscular Hemoglobin 26.9 pg (28.0-33.3); Mean Corpuscular Volume 87.2 fL (83.0-100.0); Nucleated Red Blood Cells 0.5 /100 WBC (0); Platelet Count 253 K/mcL (140-400); Red Blood Count 3.27 M/mcL (3.82-4.97)
[2018-02-03 04:23] LABS: INR 2.7; Prothrombin Time 30.6 Seconds (9.4-12.1)
[2018-02-03] MEDS: Ipratropium/Albuterol Neb 3 ML IH SCH ×4 (04:24→22:33)
[2018-02-03 04:36] LABS: BUN/Creatinine Ratio 40 (6-26); Blood Urea Nitrogen 29 mg/dL (8-23); Calcium 8.3 mg/dL (8.6-10.3); Carbon Dioxide 33 mEq/L (23-29); Chloride 104 mEq/L (98-107); Glucose 169 mg/dL (70-105); Osmolality,Calculated 306 (280-300); Potassium 3.5 mEq/L (3.5-5.1); Sodium 143 mEq/L (136-145); eGFR For Non-African Americans > 60 (> 60)
[2018-02-03 04:59] LABS: Hypochromasia Present (Not Present); Lymphocytes # 0.6 K/mcL (0.6-4.6); Monocytes # 0.4 K/mcL (0.0-1.3); Neutrophils # 9.1 K/mcL (1.6-8.9); Platelet Estimate Normal (Normal)
--- NOTE | 2018-02-03 07:20 | Pulmonology Progress Note ---
Date of Encounter: 02/03/18 Time of Encounter: 07:20 Assessment and Plan (1) Acute and chronic respiratory failure with hypoxia Current Visit: Yes Status: Acute Wean FiO2 down to keep oxygen saturation around 92-94% I suspect this is a combination of factors including what appears to be inflammatory pneumonia likely organizing pneumonia complicated by hydrostatic pulmonary edema Degree of hypoxia on ambulation remains concerning she has been anticoagulated the entire time and initial a CTA was also negative for filling defect Making of pulmonary embolus in the acute setting unlikely- I reordered a chest x-ray today which is essentially stable Once patient not experiencing markedly desaturation with ambulation from pulmonary standpoint could be discharged if unable to achieve this may have to readjust our thinking it early part of this next week and consider either a transbronchial a surgical lung biopsy (2) Pneumonia Current Visit: Yes Status: Acute I suspect this is an inflammatory conditions as his cryptogenic organizing pneumonia Persistent leukocytosis but trending down I suspect this is related to glucocorticoid effect Continue Zosyn with planned to de-escalate to Augmentin complete 10 day course 50 mg prednisone until clinic follow-up in pulmonary we can decide tapering course which would likely be weekly or biweekly We will need repeat CT scan in 4-6 weeks Qualifiers: Qualified Code(s): J18.9 - Pneumonia, unspecified organism (3) Asthma exacerbation Current Visit: Yes Status: Acute In addition to oral glucocorticoids patient should be prescribed Symbicort 160/4.5 2 puffs twice a day she should be given a spacer and instruction with respiratory therapy and discharged with this medication we will optimize her regimen in the outpatient setting Qualifiers: Qualified Code(s): J45.901 - Unspecified asthma with (acute) exacerbation (4) (HFpEF) heart failure with preserved ejection fraction Current Visit: Yes Status: Acute I have increased her diuretic to Lasix IV 40 mg twice a day She has a mild contraction on labs today will need to follow this closely but renal function remains appropriate would favor continuation of active diuresis She will need daily renal function testing as well as magnesium Subjective Principal diagnosis: Pneumonia Interval history: She states no real change in her respiratory status still feeling short of breath and not "back to her baseline" denies any cough or sputum production denies any hemoptysis. Has noticed some lower extremity swelling that has gone down after initiation of diuretic Objective PUL Vital signs: Last Vital Signs Temp 97.5 F L 12/02/18 05:16 Pulse 67 02/03/18 05:16 Resp 12 02/03/18 05:16 BP 154/61 02/03/18 05:16 Pulse Ox 96 02/03/18 05:16 General appearance: no acute distress Eyes: nonicteric Auscultation: right: diminished breath sounds, bilateral: rales Cardiovascular: regular rate and rhythm Gastrointestinal: normoactive bowel sounds Integumentary: normal Extremities: no cyanosis, edema Musculoskeletal: no deformities normal mental status, non-focal exam mood appropriate Results - Laboratory Findings CBC and BMP: 02/03/18 03:54 02/03/18 03:54 ABG ABG pH 7.41 pH Units (7.32-7.45) 01/28/18 18:53 ABG pCO2 46 mmHg (35-45) H 01/28/18 18:53 ABG pO2 69 mmHg (85-104) L 01/28/18 18:53 ABG O2 Saturation 94 % (95-98) L 01/28/18 18:53 PT/INR, D-dimer PT 30.6 Seconds (9.4-12.1) H 02/03/18 03:54 Abnormal lab findings: Abnormal lab results RBC 3.27 M/mcL (3.82-4.97) L 02/03/18 03:54 Hgb 8.8 g/dL (11.5-15.4) L 02/03/18 03:54 Hct 28.5 % (35.3-44.9) L 02/03/18 03:54 MCH 26.9 pg (28.0-33.3) L 02/03/18 03:54 MCHC 30.9 g/dL (31.6-35.5) L 02/03/18 03:54 RDW 16.0 % (11.5-14.5) H 02/03/18 03:54 MPV 9.0 fL (9.4-12.4) L 02/03/18 03:54 Immature Gran % 5.0 % (0-4) H 01/31/18 04:14 Metamyelocytes % 2.0 % (0) H 02/01/18 03:52 Myelocytes % 2.0 % (0) H 02/03/18 03:54 Neutrophils # 9.1 K/mcL (1.6-8.9) H 02/03/18 03:54 Nucleated RBCs/100 WBC 0.5 /100 WBC (0) H 02/03/18 03:54 Hypochromasia Present (Not Present) A 02/03/18 03:54 Anisocytosis 1+ (Not Present) A 02/02/18 03:45 PT 30.6 Seconds (9.4-12.1) H 02/03/18 03:54 ABG pCO2 46 mmHg (35-45) H 01/28/18 18:53 ABG pO2 69 mmHg (85-104) L 01/28/18 18:53 ABG HCO3 29 mEq/L (21-27) H 01/28/18 18:53 ABG Total CO2 31 mEq/L (20-26) H 01/28/18 18:53 ABG O2 Saturation 94 % (95-98) L 01/28/18 18:53 ABG Base Excess 4 mEq/L (-2 to 3) H 01/28/18 18:53 Carbon Dioxide 33 mEq/L (23-29) H 02/03/18 03:54 BUN 29 mg/dL (8-23) H 02/03/18 03:54 BUN/Creatinine Ratio 40 (6-26) H 02/03/18 03:54 Glucose 169 mg/dL (70-105) H 02/03/18 03:54 POC Glucose 175 mg/dL (70-99) H 02/02/18 20:03 Calculated Osmolality 306 (280-300) H 02/03/18 03:54 Calcium 8.3 mg/dL (8.6-10.3) L 02/03/18 03:54 Urine Protein 30 mg/dL (Neg-Trace) H 01/29/18 10:25 Urine Glucose (UA) 500 mg/dL (Normal) H 01/29/18 10:25 Urine Ketones Trace mg/dL (Negative) H 01/29/18 10:25 Ur Squamous Epith Cells Many per lpf (None-Few) H 01/29/18 10:25 - Microbiology Findings Microbiology Findings: Microbiology, Last 48 Hours 01/28/18 13:03 Blood Culture - Final Peripheral Venipuncture No growth. Final report. 01/28/18 12:45 Blood Culture - Final Peripheral Venipuncture No growth. Final report. - Diagnostic Findings Chest x-ray: report reviewed, image reviewed - Clinical Findings Intake & Output: Intake & Output 02/02/18 02/02/18 02/03/18 15:59 23:59 07:59 Intake Total 340 / 340 100 / 100 100 / 100 Output Total 900 / 900 900 / 900 550 / 550 Balance -560 / -560 -800 / -800 -450 / -450 Weight 108.1 kg Consult Discharge Plan - Plan Referrals: Aleksandar Strickland DO [Primary Care Provider] -
[2018-02-03] MEDS: Insulin LISPRO 300 UNITS/3 ML VIAL SQ SCH ×4 (07:59→21:03)
[2018-02-03] MEDS: predniSONE 20 MG TABLET PO SCH (08:06)
[2018-02-03] MEDS: Aspirin 81 MG TAB.CHEW PO SCH (08:06)
[2018-02-03] MEDS: Furosemide 40 MG/4 ML VIAL IVP SCH ×2 (08:06→15:23)
[2018-02-03] MEDS: Metoprolol XL (24 HR) Succ 25 MG TAB.ER.24H PO SCH (08:06)
[2018-02-03] MEDS: Diltiazem CD (24hr) 180 MG CAPSULE PO SCH (08:06)
[2018-02-03] MEDS: Lactobacillus 1 EACH CAP.SPRINK PO SCH ×3 (08:06→19:39)
[2018-02-03] MEDS: DAILY FIBER PO SCH (08:07)
--- NOTE | 2018-02-03 09:58 | Internal Med Progress Note ---
Hospitalist Progress Note - Encounter Date of Encounter: 02/03/18 Time of Encounter: 10:04 - Subjective Interval History: I have seen and evaluated the patient at bedside. Patient reports that she is is still feeling short of breath with minimal ambulation. She also reports palpitations when she ambulates in the room or move her head. Denies chest andrei n, or lightheadedness. - Exam Vitals: Temp Pulse Resp BP Pulse Ox 97.9 F 70 18 143/77 94 02/03/18 07:39 02/03/18 07:39 02/03/18 07:39 02/03/18 07:39 02/03/18 07:39 Exam: Vitals: Reviewed. General: Obese, Alert and oriented x4. In mild distress due to shortness of breath Skin: Normal color, no rash, no lesions. HEENT: EOM, pupils equal, round and reactive. Cardiovascular: Irregularly irregular, Normal S1 & S2, no rubs, murmurs or gallops. Lungs: Decreased breath sounds in the right lower lobe, no wheezes or crackles. Abdomen: Obese, Soft, non-tender, no rigidity. Extremities: 2+ edema in the lower extremity bilaterally. Neurological: Normal cognition and motor skills. Rest of the physical exam is non contributory - Assessment and Plan (1) Acute and chronic respiratory failure with hypoxia Current Visit: Yes Status: Acute Assessment and Plan: Patient still requiring high O2 supplement by nasal cannula. Hypoxemic during ambulation Hypoxemia during ambulation could be due to A.Fib with RvR. HR is going up to the 140s with minimal ambulation Continue bronchodilators, scheduled On DuoNebs Q4RT scheduled Symbicort on broad spectrum antibiotics prenidsone 50mg/PO daily Pulm recommendations appreciated. (2) Atrial fibrillation Current Visit: Yes Status: Acute Assessment and Plan: Rate is only controlled while patient is at rest. patient goes into RvR with minimal ambulation which could be a factor for the patient hypoxemia. Increase Metoprolol to 50mg/PO daily, continue cardizem 360mg/PO daily Anticoagulated with warfarin per pharmacy dosing due to High CHADSVASC score will consider cardiology consult if Rate is not controlled with medications changes. (3) HTN (hypertension) Current Visit: No Status: Chronic Assessment and Plan: Blood pressures well controlled. Patient is on Cardizem 360 mg by mouth daily, and metoprolol which has been increased to 50 mg by mouth daily. Continue furosemide 40 mg IV twice a day. (4) HLD (hyperlipidemia) Current Visit: No Status: Chronic Assessment and Plan: On rosuvastatin 10 mg by mouth at bedtime. (5) Pneumonia Current Visit: Yes Status: Acute Assessment and Plan: Unclear etiology. Suspicious of cryptogenic organizing pneumonia. Patient is on high-dose of steroid. Prednisone 50 mg by mouth daily. Continue piperacillin/Tazobactam 3.375mg/IV Q8HRs (6) CHF (congestive heart failure) Current Visit: Yes Status: Chronic Assessment and Plan: Patient not on acute exacerbation. Total negative balance of 1 L. Continue fluid restrictive strategies to 1.5 L a day, daily weight. On furosemide 40 mg IV twice a day. DVT Prophylaxis: Patient is on warfarin due to A. fib with a therapeutic INR - Summary of Assessment and Plan Summary of Assessment and Plan: Patient to remain in the hospital due to acute hypoxemic respiratory failure. A. fib, with rate not controlled. - Time Spent with Patient Total time spent is greater than 50% in coordination of care (as documented) at patient's floor/unit and/or counseling patient: Greater than 35 minutes (45) Plan of Care Discussed with: patient (and the nurse.) Internal Medicine: Result - Labs CBC & Chem 7: 02/03/18 03:54 02/03/18 03:54 Labs: Short CBC 02/03/18 Range/Units 03:54 WBC 10.3 (4.3-11.1) K/mcL Hgb 8.8 L (11.5-15.4) g/dL Hct 28.5 L (35.3-44.9) % Plt Count 253 (140-400) K/mcL Neutrophils # 9.1 H (1.6-8.9) K/mcL BMP 02/03/18 03:54 Sodium 143 Potassium 3.5 Chloride 104 Carbon Dioxide 33 H BUN 29 H Creatinine 0.72 Glucose 169 H Calcium 8.3 L - ABG Interpretation ABG results: ABG ABG pH 7.41 pH Units (7.32-7.45) 01/28/18 18:53 ABG pCO2 46 mmHg (35-45) H 01/28/18 18:53 ABG pO2 69 mmHg (85-104) L 01/28/18 18:53 ABG O2 Saturation 94 % (95-98) L 01/28/18 18:53 PT/INR, D-dimer PT 30.6 Seconds (9.4-12.1) H 02/03/18 03:54 Consult Discharge Plan - Plan Referrals: Aleksandar Strickland DO [Primary Care Provider] - (2) Atrial fibrillation Qualifiers: Atrial fibrillation type: chronic Qualified Code(s): I48.2 - Chronic atrial fibrillation (3) HTN (hypertension) Qualifiers: Hypertension type: essential hypertension Qualified Code(s): I10 - Essential (primary) hypertension (4) HLD (hyperlipidemia) Qualifiers: Hyperlipidemia type: unspecified Qualified Code(s): E78.5 - Hyperlipidemia, unspecified (5) Pneumonia Qualifiers: Pneumonia type: due to unspecified organism Lung location: unspecified part of lung Qualified Code(s): J18.9 - Pneumonia, unspecified organism (6) CHF (congestive heart failure) Qualifiers: Heart failure type: diastolic Heart failure chronicity: unspecified Qualified Code(s): I50.30 - Unspecified diastolic (congestive) heart failure
[2018-02-03] MEDS: Budesonide/Formoterol 160/4.5 1 PUFF INH IH SCH ×2 (10:59→22:33)
[2018-02-03] MEDS ORDERED: *HR* Warfarin 2 MG TABLET PO ONE (18:00)
[2018-02-04] MEDS: Ipratropium/Albuterol Neb 3 ML IH SCH ×4 (04:12→22:00)
[2018-02-04 04:34] LABS: INR 2.7; Prothrombin Time 30.9 Seconds (9.4-12.1)
[2018-02-04 04:41] LABS: BUN/Creatinine Ratio 32 (6-26); Blood Urea Nitrogen 25 mg/dL (8-23); Calcium 8.1 mg/dL (8.6-10.3); Carbon Dioxide 32 mEq/L (23-29); Chloride 102 mEq/L (98-107); Glucose 160 mg/dL (70-105); Magnesium 2.2 mg/dL (1.6-2.6); Osmolality,Calculated 302 (280-300); Phosphorous 4.1 mg/dL (2.7-4.5); Potassium 3.2 mEq/L (3.5-5.1); Sodium 142 mEq/L (136-145); eGFR For Non-African Americans > 60 (> 60)
[2018-02-04 05:41] LABS: Basophils # 0.1 K/mcL (0.0-0.2); Basophils % 0.5 %; Eosinophils % 0.1 %; Hematocrit 32.4 % (35.3-44.9); Hemoglobin 9.9 g/dL (11.5-15.4); Immature Granulocytes % 3.6 % (0-4); Lymphocytes # 1.4 K/mcL (0.6-4.6); Lymphocytes % 12.4 %; Mean Corpuscular HGB Conc 30.6 g/dL (31.6-35.5); Mean Corpuscular Hemoglobin 26.8 pg (28.0-33.3); Mean Corpuscular Volume 87.8 fL (83.0-100.0); Monocytes # 0.7 K/mcL (0.0-1.3); Monocytes % 6.3 %; Neutrophils # 8.5 K/mcL (1.6-8.9); Nucleated Red Blood Cells 0.3 /100 WBC (0); Platelet Count 267 K/mcL (140-400); Red Blood Count 3.69 M/mcL (3.82-4.97); Red Cell Distribution Width 16.1 % (11.5-14.5); Segmented Neutrophils % 77.1 %
[2018-02-04] MEDS: Furosemide 40 MG/4 ML VIAL IVP SCH ×2 (08:36→17:45)
[2018-02-04] MEDS: Diltiazem CD (24hr) 180 MG CAPSULE PO SCH (08:37)
[2018-02-04] MEDS: predniSONE 20 MG TABLET PO SCH ×2 (08:41→21:35)
[2018-02-04] MEDS: Metoprolol XL (24 HR) Succ 50 MG TAB.ER.24H PO SCH (08:41)
[2018-02-04] MEDS: Aspirin 81 MG TAB.CHEW PO SCH (08:42)
[2018-02-04] MEDS: DAILY FIBER PO SCH (08:42)
[2018-02-04] MEDS: Lactobacillus 1 EACH CAP.SPRINK PO SCH ×3 (08:42→21:35)
[2018-02-04] MEDS: Piperacillin/Tazobactam 3.375 GM in 0.9 % Sodium Chloride Mini Bag 100 ML IVPB SCH ×2 (08:42→17:43)
[2018-02-04] MEDS: Insulin LISPRO 300 UNITS/3 ML VIAL SQ SCH ×4 (08:44→21:36)
[2018-02-04] MEDS ORDERED: Metoprolol XL (24 HR) Succ 50 MG TAB.ER.24H PO SCH (09:00)
--- NOTE | 2018-02-04 09:21 | Pulmonology Progress Note ---
<Raffi Collazo S - Last Filed: 02/04/18 11:08> Date of Encounter: 02/04/18 Time of Encounter: 09:19 Assessment and Plan (1) Multifocal pneumonia Current Visit: Yes Status: Acute Pt presents increasing SOB from baseline - on 2 L home oxygen, turned up to 3L - increasing sputum production and cough CT scan from December admission showed - multifocal airspace disease of R > L, increased mediastinal and hilar nodes. CT scan on admission - partial collapse of right middle/right lower lobes with superimposed air brochograms suspicious for pneumonia. - New patchy areas of nodular consolidative opacity may represent developing alveolar edema vs multifocal pneumonia. - Increased interstitial edema vs pneumonia. Respiratory panel negative BK, CCP, RF factors WNL on last admission BAL on last admission showed inflamed airways, negative micro This is thought to be due an inflammatory condition, like cryptogenic organizing pneumonia Plan: - continue zosyn until discharge - continue duonebs - solumedrol has been discontinued - keep O2 sat >88% - blood cx pending - pulmonology recommendations as follows: discharge the patient with a 10day course of Augmentin, if pt completes 10d treatment before d/c will not need PO abx discharge the pt with a 40mg PO (20 BID) prednisone tab for a total of 20 days (started 40mg on 02/04), then taper by 10mg/week until pulmonology follow up will need repeat CT scan in 4-6wks attending discussed with pt the pros and cons, risks vs benefits of bronchoscopy with biopsy and as of this morning discussed open lung bx pt continues to wish to have conservative management with sterois - pulmonology will sign off at this time, please reconsult if any further questions - follow up with pulmonology as an outpatient basis (2) Acute and chronic respiratory failure with hypoxia Current Visit: Yes Status: Acute Keep O2 sat >88% (3) Asthma Current Visit: No Status: Chronic PO steroids, symbicort 2 puffs daily with spacer Qualifiers: Asthma severity: unspecified severity Asthma persistence: unspecified Asthma complication type: uncomplicated Qualified Code(s): J45.909 - Unspecified asthma, uncomplicated (4) Interstitial lung disease Current Visit: No Status: Suspected Suspected, see plan as above (5) Obesity Current Visit: Yes Status: Acute BMI 39 Qualifiers: Obesity type: unspecified obesity type Obesity classification: adult class 2 (BMI 35 - 39.9) Serious obesity comorbidity presence: unspecified whether serious comorbidity present Body mass index: BMI 39.0-39.9 Qualified Code(s): E66.9 - Obesity, unspecified; Z68.39 - Body mass index (BMI) 39.0-39.9, adult (6) (HFpEF) heart failure with preserved ejection fraction Current Visit: Yes Status: Acute ECHO on 12/30 - LVEF 60-065% - mild concentric LVH - mod LV diastolic dysfxn CXR on 02/03 - stable diffuse interstitial changes -rhg tlung base consolidation, improved left base consolidation Plan: - Lasix IV 40mg BID - follow renal fxn - check Mg in AM Subjective Principal diagnosis: Pneumonia Interval history: Patient is seen at bedside. She states the steroids are making her feel better but that she is still having some trouble breathing. Not as SOB with exertion. She denies any active chest pain, fever/chills, N/V/D. She is still coughing up a little bit of mucus but it is clear in color, which has decreased in frequency. Objective PUL Vital signs: Last Vital Signs Temp 97.7 F 02/04/18 03:37 Pulse 100 02/04/18 03:37 Resp 18 02/04/18 04:14 BP 135/78 02/04/18 03:37 Pulse Ox 95 02/04/18 04:14 General appearance: no acute distress, alert Eyes: nonicteric ENT: oropharynx moist Mallampati (class): 3 Effort: mildly labored Auscultation: right: rales, bilateral: diminished breath sounds Cardiovascular: irregular rhythm Gastrointestinal: normoactive bowel sounds, soft, non-tender, non-distended Integumentary: normal Extremities: no edema Musculoskeletal: no deformities normal mental status, non-focal exam mood appropriate, affect normal Results - Laboratory Findings CBC and BMP: 02/04/18 04:49 02/04/18 04:00 ABG ABG pH 7.41 pH Units (7.32-7.45) 01/28/18 18:53 ABG pCO2 46 mmHg (35-45) H 01/28/18 18:53 ABG pO2 69 mmHg (85-104) L 01/28/18 18:53 ABG O2 Saturation 94 % (95-98) L 01/28/18 18:53 PT/INR, D-dimer PT 30.9 Seconds (9.4-12.1) H 02/04/18 04:00 Abnormal lab findings: Abnormal lab results RBC 3.69 M/mcL (3.82-4.97) L 02/04/18 04:49 Hgb 9.9 g/dL (11.5-15.4) L 02/04/18 04:49 Hct 32.4 % (35.3-44.9) L 02/04/18 04:49 MCH 26.8 pg (28.0-33.3) L 02/04/18 04:49 MCHC 30.6 g/dL (31.6-35.5) L 02/04/18 04:49 RDW 16.1 % (11.5-14.5) H 02/04/18 04:49 MPV 9.0 fL (9.4-12.4) L 02/04/18 04:49 Metamyelocytes % 2.0 % (0) H 02/01/18 03:52 Myelocytes % 2.0 % (0) H 02/03/18 03:54 Nucleated RBCs/100 WBC 0.3 /100 WBC (0) H 02/04/18 04:49 Hypochromasia Present (Not Present) A 02/03/18 03:54 Anisocytosis 1+ (Not Present) A 02/02/18 03:45 PT 30.9 Seconds (9.4-12.1) H 02/04/18 04:00 ABG pCO2 46 mmHg (35-45) H 01/28/18 18:53 ABG pO2 69 mmHg (85-104) L 01/28/18 18:53 ABG HCO3 29 mEq/L (21-27) H 01/28/18 18:53 ABG Total CO2 31 mEq/L (20-26) H 01/28/18 18:53 ABG O2 Saturation 94 % (95-98) L 01/28/18 18:53 ABG Base Excess 4 mEq/L (-2 to 3) H 01/28/18 18:53 Potassium 3.2 mEq/L (3.5-5.1) L 02/04/18 04:00 Carbon Dioxide 32 mEq/L (23-29) H 02/04/18 04:00 BUN 25 mg/dL (8-23) H 02/04/18 04:00 BUN/Creatinine Ratio 32 (6-26) H 02/04/18 04:00 Glucose 160 mg/dL (70-105) H 02/04/18 04:00 POC Glucose 142 mg/dL (70-99) H 02/03/18 20:44 Calculated Osmolality 302 (280-300) H 02/04/18 04:00 Calcium 8.1 mg/dL (8.6-10.3) L 02/04/18 04:00 Urine Protein 30 mg/dL (Neg-Trace) H 01/29/18 10:25 Urine Glucose (UA) 500 mg/dL (Normal) H 01/29/18 10:25 Urine Ketones Trace mg/dL (Negative) H 01/29/18 10:25 Ur Squamous Epith Cells Many per lpf (None-Few) H 01/29/18 10:25 - Microbiology Findings Microbiology Findings: Microbiology, Last 48 Hours 01/28/18 13:03 Blood Culture - Final Peripheral Venipuncture No growth. Final report. 01/28/18 12:45 Blood Culture - Final Peripheral Venipuncture No growth. Final report. - Clinical Findings Intake & Output: Intake & Output 02/03/18 02/04/18 02/04/18 23:59 07:59 15:59 Intake Total 300 / 300 300 / 300 Output Total 1000 / 1000 300 / 300 Balance -700 / -700 0 / 0 Weight 106.5 kg Consult Discharge Plan - Plan Referrals: Aleksandar Strickland DO [Primary Care Provider] - 02/07/18 1:30 pm <Yuan Zamudio - Last Filed: 02/04/18 16:11> Date of Encounter: 02/04/18 Objective PUL Vital signs: Last Vital Signs Temp 97.8 F 02/04/18 12:00 Pulse 93 02/04/18 12:00 Resp 15 02/04/18 12:00 BP 133/81 02/04/18 12:00 Pulse Ox 96 02/04/18 12:00 Results - Laboratory Findings CBC and BMP: 02/04/18 04:49 02/04/18 04:00 ABG ABG pH 7.41 pH Units (7.32-7.45) 01/28/18 18:53 ABG pCO2 46 mmHg (35-45) H 01/28/18 18:53 ABG pO2 69 mmHg (85-104) L 01/28/18 18:53 ABG O2 Saturation 94 % (95-98) L 01/28/18 18:53 PT/INR, D-dimer PT 30.9 Seconds (9.4-12.1) H 02/04/18 04:00 Abnormal lab findings: Abnormal lab results RBC 3.69 M/mcL (3.82-4.97) L 02/04/18 04:49 Hgb 9.9 g/dL (11.5-15.4) L 02/04/18 04:49 Hct 32.4 % (35.3-44.9) L 02/04/18 04:49 MCH 26.8 pg (28.0-33.3) L 02/04/18 04:49 MCHC 30.6 g/dL (31.6-35.5) L 02/04/18 04:49 RDW 16.1 % (11.5-14.5) H 02/04/18 04:49 MPV 9.0 fL (9.4-12.4) L 02/04/18 04:49 Metamyelocytes % 2.0 % (0) H 02/01/18 03:52 Myelocytes % 2.0 % (0) H 02/03/18 03:54 Nucleated RBCs/100 WBC 0.3 /100 WBC (0) H 02/04/18 04:49 Hypochromasia Present (Not Present) A 02/03/18 03:54 Anisocytosis 1+ (Not Present) A 02/02/18 03:45 PT 30.9 Seconds (9.4-12.1) H 02/04/18 04:00 ABG pCO2 46 mmHg (35-45) H 01/28/18 18:53 ABG pO2 69 mmHg (85-104) L 01/28/18 18:53 ABG HCO3 29 mEq/L (21-27) H 01/28/18 18:53 ABG Total CO2 31 mEq/L (20-26) H 01/28/18 18:53 ABG O2 Saturation 94 % (95-98) L 01/28/18 18:53 ABG Base Excess 4 mEq/L (-2 to 3) H 01/28/18 18:53 Potassium 3.2 mEq/L (3.5-5.1) L 02/04/18 04:00 Carbon Dioxide 32 mEq/L (23-29) H 02/04/18 04:00 BUN 25 mg/dL (8-23) H 02/04/18 04:00 BUN/Creatinine Ratio 32 (6-26) H 02/04/18 04:00 Glucose 160 mg/dL (70-105) H 02/04/18 04:00 POC Glucose 118 mg/dL (70-99) H 02/04/18 07:51 Calculated Osmolality 302 (280-300) H 02/04/18 04:00 Calcium 8.1 mg/dL (8.6-10.3) L 02/04/18 04:00 Urine Protein 30 mg/dL (Neg-Trace) H 01/29/18 10:25 Urine Glucose (UA) 500 mg/dL (Normal) H 01/29/18 10:25 Urine Ketones Trace mg/dL (Negative) H 01/29/18 10:25 Ur Squamous Epith Cells Many per lpf (None-Few) H 01/29/18 10:25 - Microbiology Findings Microbiology Findings: Microbiology, Last 48 Hours 01/28/18 13:03 Blood Culture - Final Peripheral Venipuncture No growth. Final report. 01/28/18 12:45 Blood Culture - Final Peripheral Venipuncture No growth. Final report. - Clinical Findings Intake & Output: Intake & Output 02/04/18 02/04/18 02/04/18 07:59 15:59 23:59 Intake Total 300 / 300 600 / 600 Output Total 300 / 300 800 / 800 Balance 0 / 0 -200 / -200 Weight 106.5 kg - Attending Attestation I examined this patient and my medical decision-making was reviewed with the Resident Physician. I agree with the documented findings, disposition and treatment plan as described except to the extent set forth below. Patient seen and examined. Labs, radiology, chart personally reviewed. Agree with resident's history and physical, assessment, plan with following comments: SHOT MAN: Patient follows commands, Pulmonary: Acceptable oxygenation and ventilation area dry had an extensive discussion with patient regarding different options from observation and treating empirically with systemic steroid suspecting an organizing pneumonia versus bronchoscopy versus an open lung biopsy. Patient preferred to have and empiric therapy and close monitoring in outpatient setting. I have explained to her hold the pros and cons for each approach and she understand that. At this time to lower prednisone to 40 mg and stay on that for 1 month and then needs to be evaluated in the clinic to decide whether to continue the same dose or to lower dose slowly. Cardiovascular: stable
[2018-02-04] MEDS: Budesonide/Formoterol 160/4.5 1 PUFF INH IH SCH ×2 (10:11→22:00)
--- NOTE | 2018-02-04 11:45 | Internal Med Progress Note ---
Hospitalist Progress Note - Encounter Date of Encounter: 02/04/18 Time of Encounter: 11:42 - Subjective Interval History: I have seen and evaluated the patient at bedside. Patient reports that her HR continues to go up in the 150s with minimal exertion but that at rest it remains in the 90s. when she ambulates has significant sob. denies chest pain or l ightheadedness. - Exam Vitals: Temp Pulse Resp BP Pulse Ox 97.2 F L 81 16 149/83 98 02/04/18 09:00 02/04/18 09:00 02/04/18 10:11 02/04/18 09:00 02/04/18 10:11 Exam: Vitals: Reviewed. General: Obese, Alert and oriented x4. Still In mild distress due to shortness of breath HEENT: EOM, pupils equal, round and reactive. Cardiovascular: Irregularly irregular, Normal S1 & S2, no rubs, murmurs or gallops. Lungs:Good air entry b/l, CTA b/l, no wheezes or crackles. Abdomen: Obese, Soft, non-tender, no rigidity. NABS in all 4 quadrants Extremities: 1+ edema in the lower extremity bilaterally. Neurological: Normal cognition. CN II-XII intact. Rest of the physical exam is non contributory - Assessment and Plan (1) Acute and chronic respiratory failure with hypoxia Current Visit: Yes Status: Acute Assessment and Plan: Multifactorial pneumonia vs a component of controlled A.fib patient continues to require O2 by nasal cannula to keep O2Sat >90%. On broncodilators plus high dose steroids per pulm recommendations Metroprolol increased to 100mg/PO daily will consult cardiolgy as patient wants to discuss cardioversion options. Symbicort (2) Atrial fibrillation Current Visit: Yes Status: Acute Assessment and Plan: HR is controlled at rest but patient reports HR going up to 150s when she ambul ated in the room. reports shortness of breath associated with it cardiology has been consulted metoprolol increased to 100mg/PO daily continue warfarin per pharmacy dosing, INR therapeutic continue tele monitoring On cardizem 360mg/PO daily (3) HTN (hypertension) Current Visit: No Status: Chronic Assessment and Plan: BP has been well controlled. patient on cardizem 360mg/PO daily, metoprolol 100mg/PO daily and furosemide. (4) HLD (hyperlipidemia) Current Visit: No Status: Chronic Assessment and Plan: Continue rosuvastatin 10 mg by mouth at bedtime (5) Pneumonia Current Visit: Yes Status: Acute Assessment and Plan: possible inflammatory. criptogenic organizing pneumonia patient on high dose steroids per Pulm recommendations continue Piperacillin/tazobactam 3.375mg/IV Q8HRs (6) CHF (congestive heart failure) Current Visit: Yes Status: Chronic Assessment and Plan: HFpEF. total negative balance of 3. 5 litters patient is euvolemic continue fluid restrictive strategies to 1.5 litters a day daily weight. continue diuresis with furosemide 40mg/IV BID (7) Hypokalemia Current Visit: Yes Status: Acute Assessment and Plan: due to diuresis. electrolyte replaced. will repeat level in the am. DVT Prophylaxis: Patient on warfarin. INR therapeutic. due to A.fib - Summary of Assessment and Plan Summary of Assessment and Plan: Patient to remain in the hospital due to acute hypoxemic respiratory failure. which is multifactorial A.fib with RvR with minimal ambulation plus Pneumonia. Cardiolgy has been consulted. - Time Spent with Patient Total time spent is greater than 50% in coordination of care (as documented) at patient's floor/unit and/or counseling patient: Greater than 35 minutes (40) Plan of Care Discussed with: patient (and the nurse.) Internal Medicine: Result - Labs CBC & Chem 7: 02/04/18 04:49 02/04/18 04:00 Labs: Short CBC 02/04/18 Range/Units 04:49 WBC 11.0 (4.3-11.1) K/mcL Hgb 9.9 L (11.5-15.4) g/dL Hct 32.4 L (35.3-44.9) % Plt Count 267 (140-400) K/mcL Neutrophils # 8.5 (1.6-8.9) K/mcL BMP 02/04/18 04:00 Sodium 142 Potassium 3.2 L Chloride 102 Carbon Dioxide 32 H BUN 25 H Creatinine 0.79 Glucose 160 H Calcium 8.1 L - ABG Interpretation ABG results: ABG ABG pH 7.41 pH Units (7.32-7.45) 01/28/18 18:53 ABG pCO2 46 mmHg (35-45) H 01/28/18 18:53 ABG pO2 69 mmHg (85-104) L 01/28/18 18:53 ABG O2 Saturation 94 % (95-98) L 01/28/18 18:53 PT/INR, D-dimer PT 30.9 Seconds (9.4-12.1) H 02/04/18 04:00 Consult Discharge Plan - Plan Referrals: Aleksandar Strickland DO [Primary Care Provider] - 02/07/18 1:30 pm (2) Atrial fibrillation Qualifiers: Atrial fibrillation type: chronic Qualified Code(s): I48.2 - Chronic atrial fibrillation (3) HTN (hypertension) Qualifiers: Hypertension type: essential hypertension Qualified Code(s): I10 - Essential (primary) hypertension (4) HLD (hyperlipidemia) Qualifiers: Hyperlipidemia type: unspecified Qualified Code(s): E78.5 - Hyperlipidemia, unspecified (5) Pneumonia Qualifiers: Pneumonia type: due to unspecified organism Lung location: unspecified part of lung Qualified Code(s): J18.9 - Pneumonia, unspecified organism (6) CHF (congestive heart failure) Qualifiers: Heart failure type: diastolic Heart failure chronicity: unspecified Qualified Code(s): I50.30 - Unspecified diastolic (congestive) heart failure
--- NOTE | 2018-02-04 12:30 | Cardiology Consult Note ---
<Cindi Shane Dustin - Last Filed: 02/04/18 12:52> Date of Encounter: 02/04/18 Time of Encounter: 12:00 Assessment and Plan (1) Atrial fibrillation Current Visit: Yes Status: Acute Longstanding hx of PAF s/p cryoablation in June 2017. Has failed multiple antiarrhythmics in the past including sotalol, rythmol, and amiodarone. Underwent successful DCCV 07/26/17 to NSR. Loop recorder implant 12/2017--no events or PAF per recorder check on 01/13/18. Patient reports afib 01/31-02/01 in the setting of recurrent multifocal PNA. Given complex hx, recommend EP consult. Patient will likely need MIKEY guided DCCV. On Coumadin for AC, of note INR 1.2 on 01/02/18 and 1.9 on 01/29/18; will require MIKEY if DCCV recommended. INR's have been therapeutic for the past several days, continue Coumadin. Qualifiers: Atrial fibrillation type: paroxysmal Qualified Code(s): I48.0 - Paroxysmal atrial fibrillation (2) Multifocal pneumonia Current Visit: Yes Status: Acute Pulmonology following, on atb and oral prednisone. Plan for repeat imaging in 4-6 weeks s/p 1 month treatment of oral prednisone. May need biopsy if PNA does not resolve with medical therapy. Discussion w patient/family: The assessment and plan as outlined above was discussed with the patient and/or family members who expressed understanding and agreement. All questions were answered. Thank you for involving us in the care of your patient. Please call with any questions. The patient will be discussed and reviewed with Dr. Burnett, changes to be made accordingly. History of Present Illness Consult date: 02/04/18 Requesting physician: Eric Mccord Consult reason: Afib Chief complaint: Palpitations, shortness of breath History of present illness: Ms. Merida is a 67 year old female with PMHx significant of PAF s/p cryoablation in June 2017, HTN, and TIA who presented to the ED on 01/28/18 with worsening shortness of breath with associated cough. She notes she had to increase her SPO2 from 2 to 3 lpm. Upon arrival to ED there was concern for recurrent pneumonia. Patient reports lengthy hospitalization in December of this year for similar symptoms and was found to have PNA, was placed on supplemental O2 at that time. Pulmonology has been following, she is on IV antibiotics and was started on oral steroids for treatment of multifocal PNA; she will then follow-up for repeat imaging, if PNA persists, biopsy may be required. Patient reports she developed afib on 01/31-02/01 as inpatient--reports palpitations, dizziness and poor activity tolerance when in atrial fibrillation. Cardiology consulted today. She has a longstanding hx of PAF and has failed multiple antiarrhythmics, she underwent Cryo ablation in June 2017, s/p DCCV 07/26/17 of this year. Loop recorder implanted 12/2017 d/t concern of bradycardia and palpitations, loop interrogation 01/13/18 was without events. Recent CV testing: TTE 12/30/17: LVEF 60-65%, mild cLVH, moderate LVDD, mild-moderate TR, moderate PH, normall wall motion Loop implant 12/12/17 DCCV 07/26/17: successful conversion to NSR C 10/18/15: minimal, non-obstructive CAD Past Med Surg Social Fam HX - Past Medical History Attestation: Yes The following information was validated with the patient. Source: patient Medical history: asthma, atrial fibrillation, CHF, hypertension, TIA Additional medical history: Breast CA, neuropathy, IBS Psychiatric history: no psych history - Past Surgical History Surgical History: breast surgery, cancer surgery, hysterectomy Additional surgical history: cardiac ablation, L mastectomy, LOOP recorder - Social History Smoking Status: Never smoker Smokeless Tobacco Status: No Alcohol use: none Drug use: none - Family History Father Family Member Ethnicity: Non- Living Status: Hx Family Cardiac Disorders: Yes (hypertension) Hx Family Respiratory Disorders: No Hx Family Cancer: No Hx Family GI Disorders: No Hx Family Endocrine Disorder: Yes (diabetes) Hx Family Neuromuscular Disorders: No Hx Family Neurologic Disorders: No Hx Family HEENT Disorders: No Hx Family Autoimmune Disorders: No Mother Adopted: No Family Member Ethnicity: Non- Living Status: Still Living Hx Family Cardiac Disorders: Yes (Afib) Hx Family Respiratory Disorders: No Hx Family Cancer: Yes (Colon) Hx Family GI Disorders: Yes (Cancer) Hx Family Endocrine Disorder: Yes Hx Family Neuromuscular Disorders: Yes (Stroke 2016) Hx Family Neurologic Disorders: No Hx Family HEENT Disorders: No Hx Family Autoimmune Disorders: No Medications and Allergies Aspirin 81 mg PO DAILY 11/10/14 [History] Psyllium Husk [Daily Fiber] 2 tab PO DAILY 10/15/15 [History] Omeprazole [PriLOSEC] 20 mg PO DAILY 11/29/15 [History] Acetaminophen [Tylenol] 500 mg PO Q6HR PRN 08/25/16 [History] Calcium Carbonate [Calcium] 600 mg PO DAILY 05/28/17 [History] Fluticasone Furoate [Arnuity Ellipta] 1 puff IH QAM 05/28/17 [History] Melatonin 5 mg PO HS PRN 05/28/17 [History] Diltiazem CD (24hr) [Cardizem CD] 360 mg PO DAILY #30 cap.er.24h 06/25/17 [Rx] Metoprolol XL (24 HR) Succ [Toprol Xl] 25 mg PO DAILY #30 tab.er.24h 06/25/17 [Rx] Furosemide [Lasix] 40 mg PO DAILY PRN 07/26/17 [History] Rosuvastatin [Crestor] 10 mg PO HS 12/10/17 [History] Warfarin [Coumadin] 2.5 mg PO MOTUWETHFRSA 12/24/17 [History] Albuterol Sulfate [Ventolin Hfa] 2 puff PO Q6H PRN 01/28/18 [History] Allergy/AdvReac Type Severity Reaction Status Date / Time adhesive tape Allergy Hives Verified 01/28/18 11:45 All Systems Review: The remainder of the systems were reviewed and are negative - Cardiovascular Cardiovascular: as per HPI Physical Examination Vital Signs, Last 4 Hours Temp Pulse Resp BP Pulse Ox 02/04/18 10:11 16 98 02/04/18 09:00 97.2 F L 81 15 149/83 94 General: Conversant, No Apparent Distress, Other (supplemental o2) HEENT: Atraumatic, Normocephaly, Mucus Membranes Moist Neck: No JVD, Normal carotid pulses Cardiac: Other (irregularly irregular) Lungs: Normal Breath Sounds, No Wheeze, Rales, Rhonchi Neuro: Alert and responsive, No focal deficits noted Abdomen: Soft, Non-Tender Skin: No rashes noted on visualized skin Musculoskeletal: No Chest Wall Tenderness Extremities: No Clubbing, No Cyanosis, No Edema, Normal Pulses Results 02/04/18 04:49 02/04/18 04:00 Lab Results 02/04/18 02/04/18 02/04/18 04:00 04:00 04:49 WBC 11.0 Hgb 9.9 L Hct 32.4 L Plt Count 267 INR 2.7 Sodium 142 Potassium 3.2 L Chloride 102 Carbon Dioxide 32 H BUN 25 H Creatinine 0.79 Glucose 160 H Calcium 8.1 L Magnesium 2.2 Active Medications Acetaminophen (Tylenol) 500 mg PO Q6HR PRN PRN Reason: MILD PAIN Stop: 07/30/18 16:43 Last Admin: 02/02/18 22:29 Dose: 500 mg Albuterol/Ipratropium (Duoneb) 3 ml IH [id number] [facility] Stop: 07/30/18 16:46 Last Admin: 02/04/18 10:11 Dose: 3 ml Aspirin (Aspirin) 81 mg PO DAILY [facility] Stop: 07/31/18 09:01 Last Admin: 02/04/18 08:42 Dose: 81 mg Budesonide/Formoterol Fumarate (Symbicort) 2 puff IH BIDR [facility]; Protocol Stop: 08/01/18 10:01 Last Admin: 02/04/18 10:11 Dose: 2 puff Calcium Carbonate (Tums) 500 mg PO DAILY [facility] Stop: 07/31/18 09:01 Last Admin: 02/04/18 08:42 Dose: 500 mg Dextrose/Water (Dextrose 50% (Syg)) 25 ml IVP AD PRN PRN Reason: Hypoglycemia Stop: 07/31/18 07:27 Diltiazem HCl (Cardizem Cd) 360 mg PO DAILY [facility] Stop: 07/31/18 09:01 Last Admin: 02/04/18 08:37 Dose: 360 mg Diphenhydramine HCl (Benadryl) 25 mg PO Q6HR PRN PRN Reason: Itching Stop: 08/05/18 09:40 Last Admin: 02/03/18 10:07 Dose: 25 mg Furosemide (Lasix) 40 mg IVP BIDDIURETIC [facility] Stop: 08/04/18 09:01 Last Admin: 02/04/18 08:36 Dose: 40 mg Glucagon (Glucagen) 1 mg IM ONCE PRN PRN Reason: Hypoglycemia Stop: 07/31/18 07:27 Glucose (Gluctose) 15 gm PO ONCE PRN PRN Reason: Hypoglycemia Stop: 07/31/18 07:27 Glucose (Gluctose) 30 gm PO ONCE PRN PRN Reason: Hypoglycemia Stop: 07/31/18 07:27 Dextrose (Dextrose 5%) 1,000 mls @ 100 mls/hr IVC .Q10H PRN PRN Reason: HYPOGLYCEMIA Stop: 07/31/18 07:27 Piperacillin Sod/Tazobactam (Sod 3.375 gm/ Sodium Chloride) 100 mls @ 25 mls/hr IVPB Q8HR [facility] Stop: 07/31/18 08:44 Last Admin: 02/04/18 08:42 Dose: 100 mls/hr Insulin Human Lispro (Humalog) 0 units SQ TIDAC [facility]; Protocol Stop: 08/02/18 07:31 Last Admin: 02/04/18 08:44 Dose: Not Given Insulin Human Lispro (Humalog) 0 units SQ HS [facility]; Protocol Stop: 08/01/18 21:01 Last Admin: 02/03/18 21:03 Dose: Not Given Lactobacillus Acidophilus/Rhamnosus (Culturelle) 1 each PO TID [facility] Stop: 08/03/18 15:01 Last Admin: 02/04/18 08:42 Dose: 1 each Melatonin (Melatonin) 3 mg PO HS PRN PRN Reason: Sleep Metoprolol Succinate (Toprol Xl) 100 mg PO DAILY [facility] Stop: 08/06/18 09:01 Last Admin: 02/04/18 08:41 Dose: 100 mg Naloxone HCl (Narcan) 0.4 mg IVP Q2MIN PRN PRN Reason: SEE COMMENTS Stop: 07/30/18 16:19 Omeprazole (Prilosec) 20 mg PO DAILY@0630 [facility]; Protocol Stop: 07/31/18 06:31 Last Admin: 02/04/18 05:31 Dose: 20 mg Pharmacy Profile Note (Patient Taking Own Medication) 2 each PO DAILY [facility] Stop: 07/31/18 09:01 Last Admin: 02/04/18 08:42 Dose: 2 each Prednisone (Prednisone) 20 mg PO BID [facility] Stop: 08/06/18 21:01 Rosuvastatin Calcium (Crestor) 10 mg PO HS [facility] Stop: 07/30/18 21:01 Last Admin: 02/03/18 19:39 Dose: 10 mg Warfarin Sodium (Coumadin Perpt) 1 each PO DAILY@1800 PRN PRN Reason: SEE COMMENTS Stop: 07/31/18 18:01 - Imaging and Cardiology Echo: report reviewed Cardiac cath: report reviewed Other Results: 12 hour tele: avg HR-100 afib. Consult Discharge Plan - Plan Referrals: Aleksandar Strickland DO [Primary Care Provider] - 02/07/18 1:30 pm <Lisa Burnett - Last Filed: 02/04/18 16:08> Date of Encounter: 02/04/18 - Attending Attestation I examined this patient and my medical decision-making was reviewed with the ADMINISTRATIVE SERVICES SPECIALIST. I agree with the documented findings, disposition and treatment plan as described. Ms. Merida presents with recurrent AFIB in setting of multifocal pneumonia on steroids and Abx. Longstanding history of PAF having failed multiple antiarrhythmic drugs. Underwent cryoablation June 2017. DCCV July 2017. Loop Recorder Implant 12/2017. At bedside patient is in NAD, breathing comfortably on supplemental O2 Cardiac exam - irregularly irregular rhythm, no appreciable cardiac murmur, breath sounds diminished, no LE edema ECG reviewed, atrial fibrillation rate controlled Impression: 1. Persistent atrial fibrillation: EP consulted. Plan on performing DCCV tomorrow with MIKEY guidance due to subtherapeutic INR recently. Assessment and Plan Discussion w patient/family: The assessment and plan as outlined above was discussed with the patient and/or family members who expressed understanding and agreement. All questions were answered. Thank you for involving us in the care of your patient. Please call with any questions. History of Present Illness History of present illness: Ms. Merida is a 67 year old female All Systems Review: The remainder of the systems were reviewed and are negative Results 02/04/18 04:49 02/04/18 04:00 Lab Results 02/04/18 02/04/18 02/04/18 04:00 04:00 04:49 WBC 11.0 Hgb 9.9 L Hct 32.4 L Plt Count 267 INR 2.7 Sodium 142 Potassium 3.2 L Chloride 102 Carbon Dioxide 32 H BUN 25 H Creatinine 0.79 Glucose 160 H Calcium 8.1 L Magnesium 2.2
--- NOTE | 2018-02-04 13:19 | Electrophysiology Consult Note ---
<Aidee Diaz - Last Filed: 02/04/18 13:15> Date of Encounter: 02/04/18 Time of Encounter: 13:16 Assessment and Plan (1) Pneumonia Current Visit: Yes Status: Acute Per cardiology: -Admitted with pneumonia. -Management per primary service. Qualifiers: Pneumonia type: due to unspecified organism Lung location: unspecified part of lung Qualified Code(s): J18.9 - Pneumonia, unspecified organism (2) Atrial fibrillation Current Visit: No Status: Chronic Per EP: -Known PAF s/p cryoablation 06/2017, DCCV 07/2017. -Admitted with pneumonia. -Patient states on she went into a.fib, currently a.fib on tele. HR controlled on average. -ECG pending. -On coumadin for anticoagulation, INR subtherapeutic on 01/29/18. Currently therapeutic, goal INR 2.0-3.0. -On BB and CCB. -TTE 12/30/17: LVEF 60-65%, mild cLVH, moderate LVDD, mild-moderate TR, moderate PH, normall wall motion -Discussed and reviewed with Dr.John Ness who recommends MIKEY/DCCV prior to discharge. Needs MIKEY due to subtherapeutic INR in the past 30 days. states would optimize respiratory status prior to MIKEY/DCCV. Will make NPO after midnight in case able to proceed with MIKEY/DCCV in am. -Will continue to monitor. Qualifiers: Atrial fibrillation type: paroxysmal Qualified Code(s): I48.0 - Paroxysmal atrial fibrillation Discussion w patient/family: The assessment and plan as outlined above was discussed with the patient and/or family members who expressed understanding and agreement. All questions were answered. Thank you for involving us in the care of your patient. Please call with any questions. Discussed and reviewed with Dr.John Ness. History of Present Illness Consult date: 02/04/18 Requesting physician: Cindi Shane Consult reason: recurrent a.fib Chief complaint: shortness of breath History of present illness: Ms. Merida is a 67 year old female with a relevant past medical history of PAF s/p cryablation 06/2017, HTN, obesity, DM, TIA, LOOP insertion, pneumonia who presented to [facility] with complaints of shortness of breath and cough. Patient reports since DCCV 07/2017, had been SR until this . Patient reports feels dizziness, lightheadedness and increased shortness of breath while in a.fib. Patient reports multiple admission for pneumomia over the past 2 months. Previous testing: TTE 12/30/17: LVEF 60-65%, mild cLVH, moderate LVDD, mild-moderate TR, moderate PH, normall wall motion Loop implant 12/12/17 DCCV 07/26/17: successful conversion to NSR C 10/18/15: minimal, non-obstructive CAD Past Med Surg Social Fam HX - Past Medical History Attestation: Yes The following information was validated with the patient. Source: patient, old records reviewed Medical history: asthma, atrial fibrillation, CHF, hypertension, TIA Additional medical history: Breast CA, neuropathy, IBS Psychiatric history: no psych history - Past Surgical History Surgical History: breast surgery, cancer surgery, hysterectomy Additional surgical history: cardiac ablation, L mastectomy, LOOP recorder - Social History Smoking Status: Never smoker Smokeless Tobacco Status: No Alcohol use: none Drug use: none - Family History Father Family Member Ethnicity: Non- Living Status: Hx Family Cardiac Disorders: Yes (hypertension) Hx Family Respiratory Disorders: No Hx Family Cancer: No Hx Family GI Disorders: No Hx Family Endocrine Disorder: Yes (diabetes) Hx Family Neuromuscular Disorders: No Hx Family Neurologic Disorders: No Hx Family HEENT Disorders: No Hx Family Autoimmune Disorders: No Mother Adopted: No Family Member Ethnicity: Non- Living Status: Still Living Hx Family Cardiac Disorders: Yes (Afib) Hx Family Respiratory Disorders: No Hx Family Cancer: Yes (Colon) Hx Family GI Disorders: Yes (Cancer) Hx Family Endocrine Disorder: Yes Hx Family Neuromuscular Disorders: Yes (Stroke 2016) Hx Family Neurologic Disorders: No Hx Family HEENT Disorders: No Hx Family Autoimmune Disorders: No Medications and Allergies RX: Aspirin 81 mg PO DAILY 11/10/14 [History] RX: Psyllium Husk [Daily Fiber] 2 tab PO DAILY 10/15/15 [History] RX: Omeprazole [PriLOSEC] 20 mg PO DAILY 11/29/15 [History] RX: Acetaminophen [Tylenol] 500 mg PO Q6HR PRN 08/25/16 [History] RX: Calcium Carbonate [Calcium] 600 mg PO DAILY 05/28/17 [History] RX: Fluticasone Furoate [Arnuity Ellipta] 1 puff IH QAM 05/28/17 [History] RX: Melatonin 5 mg PO HS PRN 05/28/17 [History] RX: Diltiazem CD (24hr) [Cardizem CD] 360 mg PO DAILY #30 cap.er.24h 06/25/17 [Rx] RX: Furosemide [Lasix] 40 mg PO DAILY PRN 07/26/17 [History] RX: Rosuvastatin [Crestor] 10 mg PO HS 12/10/17 [History] RX: Warfarin [Coumadin] 2.5 mg PO MOTUWETHFRSA 12/24/17 [History] RX: Albuterol Sulfate [Ventolin Hfa] 2 puff PO Q6H PRN 01/28/18 [History] Amoxicillin/Clavulanate [Augmentin] 875 mg PO BIDWM 10 Days #20 tablet 02/05/18 [Rx] RX: Budesonide/Formoterol 160/4.5 [Symbicort 160/4.5] 2 puff IH BIDR 30 Days #2 inh 02/05/18 [Rx] RX: Metoprolol XL (24 HR) Succ [Toprol Xl] 50 mg PO DAILY 30 Days #30 tab.er.24h 02/05/18 [Rx] RX: predniSONE [PredniSONE] 20 mg PO BID 30 Days #60 tablet 02/05/18 [Rx] Allergy/AdvReac Type Severity Reaction Status Date / Time adhesive tape Allergy Hives Verified 01/28/18 11:45 All Systems Review: The remainder of the systems were reviewed and are negative - Cardiovascular Cardiovascular: as per HPI, dyspnea at rest, dyspnea on exertion, lightheadedness - Respiratory Respiratory: cough Physical Examination Vital Signs, Last 4 Hours Resp Pulse Ox 02/04/18 10:11 16 98 Vital Signs Temperature 98.6 F 01/28/18 11:43 Pulse Rate 101 01/28/18 11:43 Respiratory Rate 22 01/28/18 11:43 Blood Pressure 174/76 01/28/18 11:43 O2 Sat by Pulse Oximetry 89 01/28/18 11:43 Temperature 97.2 F L 02/04/18 09:00 Pulse Rate 81 02/04/18 09:00 Respiratory Rate 16 12/03/18 10:11 Blood Pressure 149/83 12/03/18 09:00 O2 Sat by Pulse Oximetry 98 02/04/18 10:11 Oxygen Delivery Oxygen Delivery Nasal Cannula General: Conversant, No Apparent Distress HEENT: Atraumatic, Normocephaly, Mucus Membranes Moist Neck: No JVD, Normal carotid pulses Cardiac: Normal S1 and S2, No Murmur, Other (Irregularly irregular) Lungs: Other (Lung sounds diminished to right lung. ) Neuro: Alert and responsive, No focal deficits noted Abdomen: Soft, Non-Tender Skin: No rashes noted on visualized skin Musculoskeletal: No Chest Wall Tenderness Extremities: No Clubbing, No Cyanosis, Normal Pulses, Other (Mild bilateral pedal edema, non-pitting. ) Results 02/04/18 04:49 02/04/18 04:00 Lab Results Active Medications Acetaminophen (Tylenol) 500 mg PO Q6HR PRN PRN Reason: MILD PAIN Stop: 07/30/18 16:43 Last Admin: 02/02/18 22:29 Dose: 500 mg Albuterol/Ipratropium (Duoneb) 3 ml IH [id number] [facility] Stop: 07/30/18 16:46 Last Admin: 02/04/18 10:11 Dose: 3 ml Aspirin (Aspirin) 81 mg PO DAILY [facility] Stop: 07/31/18 09:01 Last Admin: 02/04/18 08:42 Dose: 81 mg Budesonide/Formoterol Fumarate (Symbicort) 2 puff IH BIDR [facility]; Protocol Stop: 08/01/18 10:01 Last Admin: 02/04/18 10:11 Dose: 2 puff Calcium Carbonate (Tums) 500 mg PO DAILY [facility] Stop: 07/31/18 09:01 Last Admin: 02/04/18 08:42 Dose: 500 mg Dextrose/Water (Dextrose 50% (Syg)) 25 ml IVP AD PRN PRN Reason: Hypoglycemia Stop: 07/31/18 07:27 Diltiazem HCl (Cardizem Cd) 360 mg PO DAILY [facility] Stop: 07/31/18 09:01 Last Admin: 02/04/18 08:37 Dose: 360 mg Diphenhydramine HCl (Benadryl) 25 mg PO Q6HR PRN PRN Reason: Itching Stop: 08/05/18 09:40 Last Admin: 02/03/18 10:07 Dose: 25 mg Furosemide (Lasix) 40 mg IVP BIDDIURETIC [facility] Stop: 08/04/18 09:01 Last Admin: 02/04/18 08:36 Dose: 40 mg Glucagon (Glucagen) 1 mg IM ONCE PRN PRN Reason: Hypoglycemia Stop: 07/31/18 07:27 Glucose (Gluctose) 15 gm PO ONCE PRN PRN Reason: Hypoglycemia Stop: 07/31/18 07:27 Glucose (Gluctose) 30 gm PO ONCE PRN PRN Reason: Hypoglycemia Stop: 07/31/18 07:27 Dextrose (Dextrose 5%) 1,000 mls @ 100 mls/hr IVC .Q10H PRN PRN Reason: HYPOGLYCEMIA Stop: 07/31/18 07:27 Piperacillin Sod/Tazobactam (Sod 3.375 gm/ Sodium Chloride) 100 mls @ 25 mls/hr IVPB Q8HR [facility] Stop: 07/31/18 08:44 Last Admin: 02/04/18 08:42 Dose: 100 mls/hr Insulin Human Lispro (Humalog) 0 units SQ TIDAC [facility]; Protocol Stop: 08/02/18 07:31 Last Admin: 02/04/18 08:44 Dose: Not Given Insulin Human Lispro (Humalog) 0 units SQ HS [facility]; Protocol Stop: 08/01/18 21:01 Last Admin: 02/03/18 21:03 Dose: Not Given Lactobacillus Acidophilus/Rhamnosus (Culturelle) 1 each PO TID [facility] Stop: 08/03/18 15:01 Last Admin: 02/04/18 08:42 Dose: 1 each Melatonin (Melatonin) 3 mg PO HS PRN PRN Reason: Sleep Metoprolol Succinate (Toprol Xl) 100 mg PO DAILY [facility] Stop: 08/06/18 09:01 Last Admin: 02/04/18 08:41 Dose: 100 mg Naloxone HCl (Narcan) 0.4 mg IVP Q2MIN PRN PRN Reason: SEE COMMENTS Stop: 07/30/18 16:19 Omeprazole (Prilosec) 20 mg PO DAILY@0630 [facility]; Protocol Stop: 07/31/18 06:31 Last Admin: 02/04/18 05:31 Dose: 20 mg Pharmacy Profile Note (Patient Taking Own Medication) 2 each PO DAILY [facility] Stop: 07/31/18 09:01 Last Admin: 02/04/18 08:42 Dose: 2 each Prednisone (Prednisone) 20 mg PO BID [facility] Stop: 08/06/18 21:01 Rosuvastatin Calcium (Crestor) 10 mg PO HS [facility] Stop: 07/30/18 21:01 Last Admin: 02/03/18 19:39 Dose: 10 mg Warfarin Sodium (Coumadin Perpt) 1 each PO DAILY@1800 PRN PRN Reason: SEE COMMENTS Stop: 07/31/18 18:01 Laboratory Tests 01/29/18 02/04/18 02/04/18 04:50 04:00 04:00 Hgb INR 1.9 2.7 Potassium 3.2 L Creatinine 0.79 Magnesium 2.2 02/04/18 04:49 Hgb 9.9 L INR Potassium Creatinine Magnesium - Imaging and Cardiology Chest Xray: report reviewed Echo: report reviewed Cardiac cath: report reviewed - EKG Interpretation EKG results cardiology: other (Telemetry reviewed with average HR previous 12 hours noted to be 99, a.fib.) Consult Discharge Plan - Plan Referrals: Aleksandar Strickland DO [Primary Care Provider] - 02/12/18 1:30 pm Prescriptions: Amoxicillin/Clavulanate [Augmentin] 875 mg PO BIDWM 10 Days #20 tablet RX: Budesonide/Formoterol 160/4.5 [Symbicort 160/4.5] 2 puff IH BIDR 30 Days #2 inh RX: Metoprolol XL (24 HR) Succ [Toprol Xl] 50 mg PO DAILY 30 Days #30 tab.er.24h RX: predniSONE [PredniSONE] 20 mg PO BID 30 Days #60 tablet <Jose Armando Ness - Last Filed: 02/05/18 15:39> Date of Encounter: 02/05/18 - Attending Attestation I have personally performed a face to face evaluation on this patient. I have reviewed and agree with the care plan. History and Exam by me shows: Recurrent AF in the setting of pneumonia. Will attempt cardioversion when stab le from respiratory standpoint. Has not had any other AF on loop recorder. Assessment and Plan Discussion w patient/family: The assessment and plan as outlined above was discussed with the patient and/or family members who expressed understanding and agreement. All questions were answered. Thank you for involving us in the care of your patient. Please call with any questions. History of Present Illness History of present illness: Ms. Merida is a 67 year old female All Systems Review: The remainder of the systems were reviewed and are negative Results 02/04/18 04:49 02/05/18 05:50 Lab Results 02/05/18 02/05/18 02/05/18 04:48 04:48 05:50 INR 3.0 Sodium 141 Potassium 4.0 Chloride 104 Carbon Dioxide 31 H BUN 32 H Creatinine 0.69 Glucose 202 H Calcium 8.3 L Magnesium 2.3
--- NOTE | 2018-02-04 15:42 | Electrocardiograph Report ---
[place] [id number] Test Date: 2018-02-04 Pat Name: Erica Merida Department: 111 Room: 2N3 Gender: F Production Underwriter: RAW : 1950 Requested By: Cindi Shane Order Number: [id number] Reading MD: Fawad Cabral Measurements Intervals [place] Rate: 89 P: GA: 0 QRS: 28 QRSD: 93 T: 51 QT: 363 QTc: 410 Interpretive Statements ATRIAL FLUTTER ABNORMAL RHYTHM ECG Electronically Signed On 02-04-2018 15:40:25 EST by Fawad Cabral
[2018-02-04] MEDS ORDERED: *HR* Warfarin 2 MG TABLET PO ONE (18:00)
[2018-02-05] MEDS: Piperacillin/Tazobactam 3.375 GM in 0.9 % Sodium Chloride Mini Bag 100 ML IVPB SCH ×2 (02:56→08:00)
[2018-02-05] MEDS: Ipratropium/Albuterol Neb 3 ML IH SCH ×3 (03:59→15:59)
[2018-02-05 05:12] LABS: Prothrombin Time 34.2 Seconds (9.4-12.1)
[2018-02-05 06:40] LABS: BUN/Creatinine Ratio 46 (6-26); Blood Urea Nitrogen 32 mg/dL (8-23); Calcium 8.3 mg/dL (8.6-10.3); Carbon Dioxide 31 mEq/L (23-29); Chloride 104 mEq/L (98-107); Glucose 202 mg/dL (70-105); Osmolality,Calculated 305 (280-300); Phosphorous 4.2 mg/dL (2.7-4.5); Sodium 141 mEq/L (136-145); eGFR For Non-African Americans > 60 (> 60)
[2018-02-05] MEDS: Furosemide 40 MG/4 ML VIAL IVP SCH (08:13)
[2018-02-05] MEDS: Metoprolol XL (24 HR) Succ 50 MG TAB.ER.24H PO SCH (08:14)
[2018-02-05] MEDS: Diltiazem CD (24hr) 180 MG CAPSULE PO SCH (08:14)
[2018-02-05] MEDS: Lactobacillus 1 EACH CAP.SPRINK PO SCH ×2 (08:15→15:42)
[2018-02-05] MEDS: predniSONE 20 MG TABLET PO SCH (08:15)
[2018-02-05] MEDS: DAILY FIBER PO SCH (08:16)
[2018-02-05] MEDS: Insulin LISPRO 300 UNITS/3 ML VIAL SQ SCH ×2 (08:16→14:22)
[2018-02-05] MEDS: Aspirin 81 MG TAB.CHEW PO SCH (08:16)
[2018-02-05] MEDS ORDERED: predniSONE 20 MG TABLET PO SCH (09:00)
--- NOTE | 2018-02-05 10:21 | Event Note ---
Date of Encounter: 02/05/18 Time of Encounter: 10:18 - Cardiology Event Note EP recomendations reviewed. Recommended to undergo MIKEY and DCCV for symptomatic atrial fibrillation. On coumadin therapy with sub-therapeutic INR in the past month. Pt reports SOB has significantly improved from PNA standpoint. Mild SOB remaining. Procedure indication, adverse events, and benefit discussed. States that historically she is SOB with her atrial fibrillation. Pt denies questions regarding procedure.
[2018-02-05] MEDS ORDERED: *HR* Midazolam HCl 2 MG/2 ML VIAL IVP PRN (10:43)
[2018-02-05] MEDS ORDERED: Lidocaine Viscous Oral Soln 15 ML SOLUTION MM PRN (10:43)
[2018-02-05] MEDS ORDERED: 0.9 % Sodium Chloride 500 ML IVC ONE (10:43)
[2018-02-05] MEDS ORDERED: Tetracaine/Benzocaine/Butamben 1 SPRAY AEROSOL MM ONE (10:43)
[2018-02-05] MEDS: *HR* FentaNYL (PF) 100 MCG/2 ML VIAL IVP PRN ×3 (11:20→11:39)
[2018-02-05] MEDS: *HR* Midazolam HCl 5 MG/5 ML VIAL IVP ONE ×4 (11:20→11:42)
[2018-02-05] MEDS: Budesonide/Formoterol 160/4.5 1 PUFF INH IH SCH (11:25)
--- NOTE | 2018-02-05 14:28 | Discharge Summary ---
- NOTES TO OUTPATIENT PROVIDER Notes to Outpatient Provider: Follow-up with cardiology within a week of hospital discharge. Follow-up with pulmonology within a week of hospital discharge Orders not resulted at time of discharge: Pending orders 01/28/18 16:24 Bedside Spirometry Evaluation [EVAL] Routine 02/06/18 04:00 PT/INR [Prothrombin Time INR] [COAG] AM 0400 02/07/18 04:00 PT/INR [Prothrombin Time INR] [COAG] AM 0400 02/08/18 04:00 PT/INR [Prothrombin Time INR] [COAG] AM 0400 Date of Encounter: 02/05/18 Time of Encounter: 14:17 - Discharge Diagnosis (1) Acute and chronic respiratory failure with hypoxia Priority: Primary Status: Resolved (2) Atrial fibrillation Priority: Secondary Status: Chronic Qualifiers: Atrial fibrillation type: paroxysmal Qualified Code(s): I48.0 - Paroxysmal atrial fibrillation (3) HTN (hypertension) Priority: Secondary Status: Chronic Qualifiers: Hypertension type: essential hypertension Qualified Code(s): I10 - Essential (primary) hypertension (4) HLD (hyperlipidemia) Priority: Secondary Status: Chronic Qualifiers: Hyperlipidemia type: unspecified Qualified Code(s): E78.5 - Hyperlipidemia, unspecified (5) Pneumonia Priority: Secondary Status: Chronic Qualifiers: Pneumonia type: due to unspecified organism Lung location: unspecified part of lung Qualified Code(s): J18.9 - Pneumonia, unspecified organism (6) CHF (congestive heart failure) Priority: Secondary Status: Chronic Qualifiers: Heart failure type: diastolic Heart failure chronicity: unspecified Qualified Code(s): I50.30 - Unspecified diastolic (congestive) heart failure (7) Hypokalemia Priority: Secondary Status: Chronic Hospital course: Ms. Merida is a 67 year old female history of A. fib on Coumadin status post radioablation and is on droop recorder at present, recent pneumonia 3-4 weeks ago and got discharge on Levaquin with 2 L oxygen at rest and 3 L on ambulation but has been requiring more oxygen and last to 3 days presented to emergency room with worsening of shortness of breath and whitish to yellow is productive a sputum that has been worsening and last 5-6 days with slight tinge of blood noticed. Patient admitted to the hospital due to Pneumonia, pulm consulted as patient continued to required high O2 supplement, recommended to start the patient on a high dose of Prednisone 20mg/PO BID due to suspicious that the patient's pneumonia was inflammatory in nature, possible cryptogenic organizing pneumonia. Patient respiratory status improve significantly with the steroids and WBC count normalized. A CTA was done: IMPRESSION: 1. No findings of pulmonary embolism. 2. Persistent partial collapse of the right middle and right lower lobes with superimposed air bronchograms suspicious for pneumonia. 3. Increased interstitial edema or pneumonia. 4. New patchy areas of nodular consolidative opacity may represent developing alveolar edema or multifocal pneumonia. 5. Trace right pleural effusion. As patient continued to be symptomatic, with sob with minimal exertion and A.fib with RvR while she ambulates metoprolol was increased to 50mg/PO daily and cardiology was consulted. Patient underwent a MIKEY and DCCV and patient was sucessfully converted to NSR. Cardiology recommended to follow with them as outpatient. As patient acute symptoms have resolved, and patient is hemodynamically is stable. She will be discharged home on Augmentin for 10 days. Plus high-dose of prednisone 20 mg by mouth twice a day x a week then taper by 10mg/week until seen by the pulmonology team. Recommended to follow-up with Coumadin clinic, for INR check. - Time Spent with Patient Total time spent providing and/or coordinating discharge services: Greater than 30 minutes (45) - Discharge Medications Prescriptions: Amoxicillin/Clavulanate [Augmentin] 875 mg PO BIDWM 10 Days #20 tablet Budesonide/Formoterol 160/4.5 [Symbicort 160/4.5] 2 puff IH BIDR 30 Days #2 inh Metoprolol XL (24 HR) Succ [Toprol Xl] 50 mg PO DAILY 30 Days #30 tab.er.24h predniSONE [PredniSONE] 20 mg PO BID 30 Days #60 tablet Home Medications: Aspirin 81 mg PO DAILY 11/10/14 [History] Psyllium Husk [Daily Fiber] 2 tab PO DAILY 10/15/15 [History] Omeprazole [PriLOSEC] 20 mg PO DAILY 11/29/15 [History] Acetaminophen [Tylenol] 500 mg PO Q6HR PRN 08/25/16 [History] Calcium Carbonate [Calcium] 600 mg PO DAILY 05/28/17 [History] Fluticasone Furoate [Arnuity Ellipta] 1 puff IH QAM 05/28/17 [History] Melatonin 5 mg PO HS PRN 05/28/17 [History] Diltiazem CD (24hr) [Cardizem CD] 360 mg PO DAILY #30 cap.er.24h 06/25/17 [Rx] Furosemide [Lasix] 40 mg PO DAILY PRN 07/26/17 [History] Rosuvastatin [Crestor] 10 mg PO HS 12/10/17 [History] Warfarin [Coumadin] 2.5 mg PO MOTUWETHFRSA 12/24/17 [History] Albuterol Sulfate [Ventolin Hfa] 2 puff PO Q6H PRN 01/28/18 [History] Amoxicillin/Clavulanate [Augmentin] 875 mg PO BIDWM 10 Days #20 tablet 02/05/18 [Rx] Budesonide/Formoterol 160/4.5 [Symbicort 160/4.5] 2 puff IH BIDR 30 Days #2 inh 02/05/18 [Rx] Metoprolol XL (24 HR) Succ [Toprol Xl] 50 mg PO DAILY 30 Days #30 tab.er.24h 02/05/18 [Rx] predniSONE [PredniSONE] 20 mg PO BID 30 Days #60 tablet 02/05/18 [Rx] Allergies/Adverse Reactions: Allergy/AdvReac Type Severity Reaction Status Date / Time adhesive tape Allergy Hives Verified 01/28/18 11:45 Date of admission: 01/28/18 15:45 Primary care physician: Aleksandar Strickland DO Consults: 01/28/18 12:56 Consult to Invasive Line Access Team [CONS] Routine Reason for Consult: poor access Line Type: EPIV 01/28/18 16:25 Consult to Physical Therapy [CONS] Routine Comment: Evaluate, develop and implement POC Reason for Consult: Generalized weakness Does patient have active BEDREST order?: No Is patient medically & hemodynamically stable?: Yes Patient assessed for mobility or mobilized this visit?: No Consult to [employer] [CONS] Routine Reason for SW Consult: Discharge plan 01/28/18 16:26 Consult to Pulmonology [CONS] Routine Consulting Provider: [facility] [place] Reason for Consult: multifocal pneumonia Call Completed: No 01/29/18 07:44 Consult to Pulmonology [CONS] Routine Consulting Provider: [facility] [place] Reason for Consult: Multifocal pneumonia Call Completed: Yes 02/04/18 11:40 Consult to Cardiology [CONS] Routine Comment: Consulting Provider: Cardiology [place] Reason for Consult: A.Fib RvR with minimal exertion. patient wants to discuss cardioversion option Call Completed: No 02/04/18 13:09 Consult to Electrophysiology (EP) [CONS] Routine Consulting Provider: Electrophysiology [place] Reason for Consult: PAF Call Completed: Yes - Constitutional Vitals: Temp Pulse Resp BP Pulse Ox 97.6 F 81 18 124/80 100 02/05/18 10:38 02/05/18 10:38 02/05/18 10:38 02/05/18 10:38 02/05/18 10:38 Exam: Vitals: Reviewed. General: Obese, Alert and oriented x4. In no acute distress. HEENT: EOM, pupils equal, round and reactive. Cardiovascular: RRR, Normal S1 & S2, no rubs, murmurs or gallops. Lungs: Good air entry b/l, CTA b/l, no wheezes or crackles. Abdomen: Obese, Soft, non-tender, no rigidity. NABS in all 4 quadrants Extremities: 1+ edema in the lower extremity bilaterally. Neurological: Normal cognition. CN II-XII intact. Rest of the physical exam is non contributory - Patient Status Disposition: Home, Self-Care Condition: Good Functional capacity at discharge: independent ambulation Overall status at discharge: patient is progressing back to baseline - Discharge Instructions Follow Up With: Aleksandar Strickland DO [Primary Care Provider] - 02/07/18 1:30 pm - Diet and Activity Activity: resume usual activities as tolerated, wear oxygen at all times (2 litters) Diet: low salt diet
[2018-02-05 16:15] VITALS: BP 120/65
--- NOTE | 2018-02-05 16:37 | Electrocardiograph Report ---
[place] [address] Test Date: 2018-02-05 Pat Name: Erica Merida Department: 111 Room: 2NE23 Gender: F Clinical Esthetician: : 1950 Requested By: Cameron Neri Order Number: [id number] Reading MD: Nati Ness Measurements Intervals [place] Rate: 87 P: NM: 0 QRS: 11 QRSD: 91 T: 38 QT: 364 QTc: 408 Interpretive Statements ATRIAL FIBRILLATION ABNORMAL RHYTHM ECG Electronically Signed On 02-05-2018 16:35:27 EST by Nati Ness
--- NOTE | 2018-02-05 16:38 | Electrocardiograph Report ---
[address] [address] Test Date: 2018-02-05 Pat Name: Erica Merida Department: 101 Room: 2N3 Gender: F Blind Eyeletter: : 1950 Requested By: Braulio Ricardo Order Number: [id number] Reading MD: Nati Ness Measurements Intervals [place] Rate: 72 P: 81 CT: 163 QRS: 18 QRSD: 91 T: 47 QT: 394 QTc: 419 Interpretive Statements SINUS RHYTHM Electronically Signed On 02-05-2018 16:36:22 EST by Nati Ness
== END 2018-02-05 17:40 | disposition home or self-care (01) | DRG 193 ==
LOC: EMEROOARM 11:41 → 2ANU 15:45 → SUATTDRO 15:45 → 2NENU 18:18
PROVIDERS: ADMIT Hospitalist; ATTEND Internal Medicine

== ENCOUNTER 2018-04-12 13:14 | Inpatient (IN) ==
--- NOTE | 2018-04-12 13:53 | Emergency Department Note ---
Disposition Clinical Impression: Atrial fibrillation with rapid ventricular response Pneumonia Qualifiers: Pneumonia type: due to unspecified organism Laterality: bilateral Lung location: unspecified part of lung Qualified Code(s): J18.9 - Pneumonia, unspecified organism Disposition: Admitted As Inpatient Referrals: Aleksandar Strickland DO [Partnered Physician] - Forms: ED Satisfaction Letter Time of Disposition: 15:17 General Adult HPI - General Chief complaint: ED Shortness of Breath/Dyspnea Stated complaint: JOLLY; retaining fluid Time Seen by Provider: 04/12/18 13:24 Source: patient Limitations: no limitations Nursing Notes Reviewed: Yes Vital Signs Reviewed: Yes - History of Present Illness HPI Narrative: 67 yo female with past medical history of congestive heart failure, breast cancer in remission since 1994 presents to the emergency department with difficulty breathing. This patient also has atrial fibrillation and is scheduled to be hospitalized in a few weeks to start sotalol therapy with Dr. Jose Armando Ness. She has had increased shortness of breath since last night. She noticed this shortness of breath while she was sitting in her chair not moving. She has had some chest pain on and off over the last few days but is currently chest pain-free. She normally wears between 2 and 5 L of oxygen at home. She does not have a defibrillator. Yesterday she also noticed that her left leg had a wound suddenly open on it with clearish fluid running down her leg followed by blood. She has never had this happen before. Her left leg has been more painful and swollen than normal although both of her legs had increased swelling for the past few days. She denies fever, chills, abdominal pain, nausea, vomiting. She took 40 mg of Lasix home today but states she does not take this on a daily basis, only as needed. Pain Scale: 0 - Related Data Home Medications Medication Instructions Recorded Confirmed Aspirin 81 mg PO DAILY 11/10/14 01/28/18 Psyllium Husk [Daily Fiber] 2 tab PO DAILY 10/15/15 01/28/18 Omeprazole [PriLOSEC] 20 mg PO DAILY 11/29/15 01/28/18 Acetaminophen [Tylenol] 500 mg PO Q6HR PRN 08/25/16 01/28/18 Calcium Carbonate [Calcium] 600 mg PO DAILY 05/28/17 01/28/18 Fluticasone Furoate [Arnuity 1 puff IH QAM 05/28/17 01/28/18 Ellipta] Melatonin 5 mg PO HS PRN 05/28/17 01/28/18 Furosemide [Lasix] 40 mg PO DAILY PRN 07/26/17 01/28/18 Rosuvastatin [Crestor] 10 mg PO HS 12/10/17 01/28/18 Warfarin [Coumadin] 2.5 mg PO MOTUWETHFRSA 12/24/17 01/28/18 Albuterol Sulfate [Ventolin Hfa] 2 puff PO Q6H PRN 01/28/18 01/28/18 Previous Rx's Medication Instructions Recorded Diltiazem CD (24hr) [Cardizem CD] 360 mg PO DAILY #30 cap.er.24h 06/25/17 Metoprolol XL (24 HR) Succ [Toprol 50 mg PO DAILY 30 Days #30 02/05/18 Xl] tab.er.24h Allergies Allergy/AdvReac Type Severity Reaction Status Date / Time adhesive tape Allergy Hives Verified 01/28/18 11:45 All systems ED: reviewed and negative except as stated. Review of Systems: As Per HPI Constitutional: Reports: weakness. Denies: fever, chills Cardiovascular: Reports: chest pain, palpitations, dyspnea on exertion, orthopnea, edema, paroxysmal nocturnal dyspnea. Denies: syncope Respiratory: Reports: cough, dyspnea. Denies: wheezes, hemoptysis, stridor Gastrointestinal: Denies: abdominal pain, nausea, vomiting, diarrhea, constipation Genitourinary: Denies: dysuria, hematuria Musculoskeletal: Denies: back pain, neck pain Integumentary: Denies: rash Neurological: Denies: headache, numbness, paresthesias Endocrine: Reports: fatigue Past Medical History - Past Medical History Medical history: Reports: asthma, atrial fibrillation, CHF, diabetes, hyperlipidemia, hypertension, TIA Surgical history: Reports: breast surgery, cancer surgery, hysterectomy Psychiatric history: Reports: no psych history RESPITE PROVIDER history: Reports: no RESPITE PROVIDER history - Social History Smoking Status: Never smoker Smokeless Tobacco Status: No Alcohol use: Reports: none Drug use: Reports: none Physical Exam - General Limitations: no limitations General appearance: alert, in no apparent distress - Head Head exam: atraumatic, normocephalic - Eye Eye exam: Present: normal appearance, EOMI - ENT ENT exam: normal exam, mucous membranes moist - Neck Neck exam: Present: normal inspection, other (no JVD). Absent: tenderness, lymphadenopathy - Chest Chest inspection: Present: normal inspection, symmetric chest wall rise. Absent: tenderness, rash - Respiratory Respiratory exam: Present: normal lung sounds bilaterally, other (no audible rhonchi or rales). Absent: wheezes - Cardiovascular Cardiovascular exam: Present: tachycardia, irregular rhythm - Abdominal Exam Abdominal exam: Present: soft, Non-Tender. Absent: distention, guarding, rebound, rigidity - Extremities Exam Extremities exam: Present: tenderness, pedal edema (3+ pedal edema to tibial tuberosity), other (Linear wound on left proximal simon without current drainage or surrounding erythema). Absent: joint swelling, calf tenderness - Neurological Exam Neurological exam: Present: alert, oriented X3, CN II-XII intact - Psychiatric Psychiatric exam: Present: normal affect, normal mood - Skin Skin exam: Present: warm, dry, intact Course Vital Signs Temperature 97.3 F L 04/12/18 13:16 Pulse Rate 125 04/12/18 13:16 Respiratory Rate 22 04/12/18 13:16 Blood Pressure 153/78 04/12/18 13:16 O2 Sat by Pulse Oximetry 95 04/12/18 13:16 Temperature 97.3 F L 04/12/18 13:16 Pulse Rate 125 04/12/18 13:16 Respiratory Rate 22 04/12/18 13:16 Blood Pressure 153/78 04/12/18 13:16 O2 Sat by Pulse Oximetry 98 04/12/18 13:36 Oxygen Delivery Oxygen Delivery Nasal Cannula Medical Decision Making - [facility] Narrative Medical decision making narrative: This patient with atrial fibrillation, heart failure, history of pneumonia presents with signs and symptoms concerning for worsening heart failure or recurrence of pneumonia. We will obtain a chest x-ray and labs and plan for admission for further cardiac workup. - Medical Records Medical records reviewed: Yes I reviewed the patient's medical records. - Lab Data Lab results reviewed: Yes I reviewed the patient's lab results. Result diagrams: 04/12/18 13:45 04/12/18 13:45 Lab Results 04/12/18 04/12/18 04/12/18 Range/Units 13:45 13:45 13:45 WBC 11.4 H (4.3-11.1) K/mcL RBC 3.92 (3.82-4.97) M/mcL Hgb 10.5 L (11.5-15.4) g/dL Hct 33.7 L (35.3-44.9) % MCV 86.0 (83.0-100.0) fL MCH 26.8 L (28.0-33.3) pg MCHC 31.2 L (31.6-35.5) g/dL RDW 16.6 H (11.5-14.5) % Plt Count 341 (140-400) K/mcL MPV 8.7 L (9.4-12.4) fL Immature Gran % 0.9 (0-4) % Seg Neutrophils % 89.1 % Lymphocytes % 5.6 % Monocytes % 3.9 % Eosinophils % 0.1 % Basophils % 0.4 % Neutrophils # 10.1 H (1.6-8.9) K/mcL Lymphocytes # 0.6 (0.6-4.6) K/mcL Monocytes # 0.4 (0.0-1.3) K/mcL Eosinophils # 0.0 (0.0-0.6) K/mcL Basophils # 0.0 (0.0-0.2) K/mcL PT 32.8 H (9.4-12.1) Seconds INR 2.9 APTT 40.2 H (26.0-36.0) Seconds D-Dimer 242 (0-500) ng/mLFEU VBG pH (7.32-7.42) pH Units VBG pCO2 (41-51) mmHg VBG pO2 (25-50) mmHg VBG HCO3 (21-27) mEq/L Sodium 142 (136-145) mEq/L Potassium 3.9 (3.5-5.1) mEq/L Chloride 102 (98-107) mEq/L Carbon Dioxide 28 (23-29) mEq/L BUN 16 (8-23) mg/dL Creatinine 0.65 (0.60-1.20) mg/dL Est GFR ( Amer) > 60 (> 60) Est GFR (Non-Af Amer) > 60 (> 60) BUN/Creatinine Ratio 25 (6-26) Glucose 196 H (70-105) mg/dL Calculated Osmolality 301 H (280-300) Lactic Acid (0.5-2.2) mmol/L Calcium 8.8 (8.6-10.3) mg/dL Troponin I < 0.03 (< 0.04) ng/mL B-Natriuretic Peptide (Less than 100) pg/mL 04/12/18 04/12/18 04/12/18 Range/Units 13:45 13:45 14:05 WBC (4.3-11.1) K/mcL RBC (3.82-4.97) M/mcL Hgb (11.5-15.4) g/dL Hct (35.3-44.9) % MCV (83.0-100.0) fL MCH (28.0-33.3) pg MCHC (31.6-35.5) g/dL RDW (11.5-14.5) % Plt Count (140-400) K/mcL MPV (9.4-12.4) fL Immature Gran % (0-4) % Seg Neutrophils % % Lymphocytes % % Monocytes % % Eosinophils % % Basophils % % Neutrophils # (1.6-8.9) K/mcL Lymphocytes # (0.6-4.6) K/mcL Monocytes # (0.0-1.3) K/mcL Eosinophils # (0.0-0.6) K/mcL Basophils # (0.0-0.2) K/mcL PT (9.4-12.1) Seconds INR APTT (26.0-36.0) Seconds D-Dimer (0-500) ng/mLFEU VBG pH 7.42 (7.32-7.42) pH Units VBG pCO2 46 (41-51) mmHg VBG pO2 75 H (25-50) mmHg VBG HCO3 30 H (21-27) mEq/L Sodium (136-145) mEq/L Potassium (3.5-5.1) mEq/L Chloride (98-107) mEq/L Carbon Dioxide (23-29) mEq/L BUN (8-23) mg/dL Creatinine (0.60-1.20) mg/dL Est GFR ( Amer) (> 60) Est GFR (Non-Af Amer) (> 60) BUN/Creatinine Ratio (6-26) Glucose (70-105) mg/dL Calculated Osmolality (280-300) Lactic Acid 2.8 H (0.5-2.2) mmol/L Calcium (8.6-10.3) mg/dL Troponin I (< 0.04) ng/mL B-Natriuretic Peptide 160 H (Less than 100) pg/mL - Radiology Data Radiology results reviewed: Yes I reviewed the patient's radiology results. - EKG Data EKG #1 EKG attestation: Yes I reviewed and interpreted this EKG. EKG results narrative: EKG obtained at 13:32 on 04/12/2018 Heart rate 117 bpm, QRS duration 90, QT 324, QTC 452 Atrial flutter with an irregular rhythm. No signs of ST segment elevations or depressions. No old EKG for comparison. Attestation Statement - Attestation Attestation: I, Jose Armando Guajardo, examined this patient and my medical decision-making was reviewed with the CUTTER OPERATOR BRICK/PA/Advanced Practice Nurse/Resident Physician. I agree with the documented findings, disposition and treatment plan as described except to the extent set forth below. 67-year-old female presents emergency Department with concerns of increasing shortness breath. Patient states her shortness breath has been increasing over the past few days but worsened last night. She has a history of atrial fibrillation and congestive heart failure. Patient took an extra dose of her Lasix this morning prior to arrival, 40 mg. Patient denies recent trauma. She states that she is on chronic 2 L of oxygen at home but has had increased to 5 L with exertion. Patient feels increased weakness and fatigue. Patient takes Coumadin for anticoagulation, had an INR of 1.8 two weeks ago, was 2.7 yesterday. Denies fevers or chills or abdominal pain, diarrhea, rash. She does note increased swelling the bilateral lower extremities but worse on the left. History of breast cancer and is currently in remission since 1994. Patient has increased respiratory effort during evaluation but is not in distress. There is no retractions, she is not hypoxic. EKG showed atrial fibrillation with a rapid ventricular rate. Patient denies missing any doses of medications. She will be given Cardizem in the emergency department to attempt to control her rate. We will obtain chest x-ray for possible pneumonia and other lung etiology. D-dimer is pending. Disposition pending at this time.
[2018-04-12 14:06] LABS: Basophils % 0.4 %; Eosinophils % 0.1 %; Hematocrit 33.7 % (35.3-44.9); Hemoglobin 10.5 g/dL (11.5-15.4); Immature Granulocytes % 0.9 % (0-4); Lymphocytes # 0.6 K/mcL (0.6-4.6); Lymphocytes % 5.6 %; Mean Corpuscular HGB Conc 31.2 g/dL (31.6-35.5); Mean Corpuscular Hemoglobin 26.8 pg (28.0-33.3); Mean Platelet Volume 8.7 fL (9.4-12.4); Monocytes # 0.4 K/mcL (0.0-1.3); Monocytes % 3.9 %; Neutrophils # 10.1 K/mcL (1.6-8.9); Platelet Count 341 K/mcL (140-400); Red Blood Count 3.92 M/mcL (3.82-4.97); Red Cell Distribution Width 16.6 % (11.5-14.5); Segmented Neutrophils % 89.1 %
[2018-04-12 14:07] LABS: VBG HCO3 30 mEq/L (21-27); VBG PCO2 46 mmHg (41-51); VBG PH 7.42 pH Units (7.32-7.42); VBG PO2 75 mmHg (25-50)
[2018-04-12] MEDS ORDERED: 0.9 % Sodium Chloride 500 ML ONE (14:14)
[2018-04-12 14:49] LABS: INR 2.9; Prothrombin Time 32.8 Seconds (9.4-12.1)
[2018-04-12 14:51] LABS: Activated Partial Thrombo Time 40.2 Seconds (26.0-36.0)
[2018-04-12 15:02] LABS: Troponin I < 0.03 ng/mL (< 0.04)
[2018-04-12 15:03] LABS: BUN/Creatinine Ratio 25 (6-26); Blood Urea Nitrogen 16 mg/dL (8-23); Calcium 8.8 mg/dL (8.6-10.3); Carbon Dioxide 28 mEq/L (23-29); Chloride 102 mEq/L (98-107); Glucose 196 mg/dL (70-105); Osmolality,Calculated 301 (280-300); Potassium 3.9 mEq/L (3.5-5.1); Sodium 142 mEq/L (136-145); eGFR For Non-African Americans > 60 (> 60)
[2018-04-12] MEDS ORDERED: Levofloxacin 750 MG/150 ML 750 MG/150 ML BAG IVPB ONE (15:08)
[2018-04-12] MEDS ORDERED: Piperacillin/Tazobactam 3.375 GM in 0.9 % Sodium Chloride Mini Bag 100 ML IVPB ONE (15:08)
[2018-04-12] MEDS ORDERED: methylPREDNISolone 125 MG/2 ML VIAL IVP ONE (15:09)
--- NOTE | 2018-04-12 17:54 | Internal Med History&Physical ---
Date of Encounter: 04/12/18 Time of Encounter: 18:37 Internal Medicine - H&P: HPI Chief complaint: Leg swelling and shortness of breath History of present illness: Ms. Merida is a 67 year old female w hx A-Fib on warfarin, HFpEF, DM2, HLD, HTN, who presents with shortness of breath and leg swelling. She states her "A- fib is acting up" and that she saw her business project manager recently who recommended inpatient sotalol load for rhythm control. However, in the last 2-3 days, she's felt her heart really racing. Yesterday, she noticed she was also getting short of breath, worse with exertion, and needing more O2. The final straw which brought her to the ED was that her both legs have been swelling for the last few days, and today she noticed an area where edema started to seep out of her left leg. Denies fever, chills, cough, fatigue/malaise. Has been consistently taking her medications which include 10 mg prednisone daily and do not include scheduled lasix, but she did take lasix today without much effect. Of note she is scheduled in a few weeks for inpatient sotalol load with Cardio Dr Jose Armando Ness. In the ED, patient tachycardic 130s. Labs with mild leukocytosis 11.5. CXR unremarkable and ECG showing A-Fib. Pt started on dilt gtt for A-Fib RVR, as well as abx for ?presumed PNA and admitted for further workup. PMH: A-Fib, CHF, DM2, HLD, HTN, TIA, Breast cancer PSH: mastectomy ', cardiac ablation SH: nonsmoker, no EtOH use FH: mother with A-Fib, father w HTN Allergies: adhesives Past Med Surg Social Fam HX - Past Medical History Medical history: asthma, atrial fibrillation, CHF, diabetes, hyperlipidemia, hypertension, TIA Additional medical history: Breast CA, neuropathy, IBS Psychiatric history: no psych history - Past Surgical History Surgical History: breast surgery, cancer surgery, hysterectomy Additional surgical history: cardiac ablation, L mastectomy, LOOP recorder - Social History Smoking Status: Never smoker Smokeless Tobacco Status: No Alcohol use: none Drug use: none - Family History Father Family Member Ethnicity: Non- Living Status: Hx Family Cardiac Disorders: Yes (hypertension) Hx Family Respiratory Disorders: No Hx Family Cancer: No Hx Family GI Disorders: No Hx Family Endocrine Disorder: Yes (diabetes) Hx Family Neuromuscular Disorders: No Hx Family Neurologic Disorders: No Hx Family HEENT Disorders: No Hx Family Autoimmune Disorders: No Mother Adopted: No Family Member Ethnicity: Non- Living Status: Still Living Hx Family Cardiac Disorders: Yes (Afib) Hx Family Respiratory Disorders: No Hx Family Cancer: Yes (Colon) Hx Family GI Disorders: Yes (Cancer) Hx Family Endocrine Disorder: Yes Hx Family Neuromuscular Disorders: Yes (Stroke 2016) Hx Family Neurologic Disorders: No Hx Family HEENT Disorders: No Hx Family Autoimmune Disorders: No Internal Medicine - H&P: Meds Aspirin 81 mg PO DAILY 11/10/14 [History] Psyllium Husk [Daily Fiber] 2 tab PO DAILY 10/15/15 [History] Omeprazole [PriLOSEC] 20 mg PO DAILY 11/29/15 [History] Acetaminophen [Tylenol] 500 mg PO Q6HR PRN 08/25/16 [History] Calcium Carbonate [Calcium] 600 mg PO DAILY 05/28/17 [History] Fluticasone Furoate [Arnuity Ellipta] 1 puff IH QAM 05/28/17 [History] Melatonin 5 mg PO HS PRN 05/28/17 [History] Diltiazem CD (24hr) [Cardizem CD] 360 mg PO DAILY #30 cap.er.24h 06/25/17 [Rx] Furosemide [Lasix] 40 mg PO DAILY PRN 07/26/17 [History] Rosuvastatin [Crestor] 10 mg PO HS 12/10/17 [History] Warfarin [Coumadin] 2.5 mg PO MOTUWETHFRSA 12/24/17 [History] Albuterol Sulfate [Ventolin Hfa] 2 puff PO Q6H PRN 01/28/18 [History] Metoprolol XL (24 HR) Succ [Toprol Xl] 50 mg PO DAILY 30 Days #30 tab.er.24h 02/05/18 [Rx] Allergy/AdvReac Type Severity Reaction Status Date / Time adhesive tape Allergy Hives Verified 01/28/18 11:45 All Systems PM: A 10-system review of systems was performed and is negative for pertinent findings except as documented above in the HPI. - Constitutional Vitals: Temp Pulse Resp BP Pulse Ox 97.9 F 108 21 140/93 98 04/12/18 16:25 04/12/18 16:25 04/12/18 16:25 04/12/18 16:25 04/12/18 16:25 Exam: General: NAD, AAOx3, good eye contact, well appearing, slightly increased work of breathing after walking to bed from bathroom Head: Atraumatic, normocephalic. Face symmetric Eyes: EOMI, sclerae anicteric ENT: Mucous membranes moist. Normal oral mucosa. Trachea midline. Thoracic: No visible chest wall deformities. Decent aeration and no rhonchi or crackles, does have blunting R base Cardio: Normal S1 and S2, irregularly irregular rhythm, tachycardia Abdomen: Soft, nontender, nondistended. Extremities: Warm, well perfused. DP pulses 2+ b/l. No clubbing, cyanosis. Does have pitting edema b/l LE through legs and trace dependent thigh edema Skin: open blister L simon weeping Neuro: Awake, fully oriented. Good memory, concentration, attention. Speech fluent. CN II-XII grossly intact. Strength 5/5 in b/l UE and LE Internal Med - H&P Results - Labs CBC & Chem 7: 04/12/18 13:45 04/12/18 13:45 Labs: Short CBC 04/12/18 Range/Units 13:45 WBC 11.4 H (4.3-11.1) K/mcL Hgb 10.5 L (11.5-15.4) g/dL Hct 33.7 L (35.3-44.9) % Plt Count 341 (140-400) K/mcL Neutrophils # 10.1 H (1.6-8.9) K/mcL BMP 04/12/18 13:45 Sodium 142 Potassium 3.9 Chloride 102 Carbon Dioxide 28 BUN 16 Creatinine 0.65 Glucose 196 H Calcium 8.8 Cardiac Enzymes 04/12/18 Range/Units 13:45 Troponin I < 0.03 (< 0.04) ng/mL - ABG Interpretation ABG results: 04/12/18 14:05 VBG pH 7.42 VBG pCO2 46 VBG pO2 75 H VBG HCO3 30 H - Impressions ITS Impressions Chest X-Ray 04/12/18 13:27 IMPRESSION: Some improvement in bibasilar opacities. D/ / Kizzy Bartholomew MD / Kizzy Bartholomew MD Interpreting Provider: Kizzy Bartholomew MD - Assessment and plan (1) Atrial fibrillation with RVR Current Visit: Yes Status: Acute Assessment and plan: Erica Merida is a 67 F w hx A-Fib on warfarin, HFpEF, DM2, HLD, HTN, who p/w tachycardia, exertional dyspnea, and pedal edema, concerning for A-Fib RVR leading to acute HFpEF exacerbation. A-Fib RVR: AC on warfarin - dilt gtt, titrate to maintain HR<110 - continue home Toprol 50 daily - cardio consult for consideration of inpatient sotalol load Acute HFpEF: - Lasix 20 iv x1 tonight and reassess in AM DM2: iatrogenic 2/2 steroid use, low SSI while inpatient HLD: home statin, ASA HTN: CCB and BB as above PPx: warfarin FEN: cardiac ADA 2L, no MIVF Lines: PIV Consults: Cardio Code: Full Dispo: patient requires inpatient eval and management at this time. Anticipate 3-4 days. Will be homegoing. - Time Spent With Patient Total time spent is greater than 50% in coordination of care (as documented) at patient's floor/unit and/or counseling patient: Greater than 35 minutes
[2018-04-12] MEDS ORDERED: Dextrose Gel 15 GM/37.5 ML TUBE PO PRN ×2 (19:04)
[2018-04-12] MEDS ORDERED: D5% in Water 1,000 ML IVC PRN (19:04)
[2018-04-12] MEDS ORDERED: *HR* Dextrose 50 % in Water (Syg) 50 ML SYRINGE IVP PRN (19:04)
[2018-04-12] MEDS ORDERED: Furosemide 20 MG/2 ML VIAL IVP ONE (19:06)
[2018-04-12] MEDS ORDERED: Naloxone 0.4 MG/ML INJ IVP PRN (19:13)
[2018-04-12] MEDS: Insulin LISPRO 300 UNITS/3 ML VIAL SQ SCH ×2 (19:54→22:10)
[2018-04-12] MEDS: Metoprolol XL (24 HR) Succ 25 MG TAB.ER.24H PO SCH (19:54)
[2018-04-12] MEDS: *HR* Warfarin 2.5 MG TABLET PO SCH (20:06)
[2018-04-13 05:43] LABS: Hematocrit 32.1 % (35.3-44.9); Hemoglobin 9.9 g/dL (11.5-15.4); Mean Corpuscular HGB Conc 30.8 g/dL (31.6-35.5); Mean Corpuscular Hemoglobin 26.4 pg (28.0-33.3); Mean Corpuscular Volume 85.6 fL (83.0-100.0); Mean Platelet Volume 9.3 fL (9.4-12.4); Platelet Count 256 K/mcL (140-400); Red Blood Count 3.75 M/mcL (3.82-4.97); Red Cell Distribution Width 15.8 % (11.5-14.5)
[2018-04-13 05:51] LABS: INR 2.8; Prothrombin Time 32.1 Seconds (9.4-12.1)
[2018-04-13 06:08] LABS: BUN/Creatinine Ratio 30 (6-26); Blood Urea Nitrogen 17 mg/dL (8-23); Calcium 9.2 mg/dL (8.6-10.3); Carbon Dioxide 27 mEq/L (23-29); Chloride 102 mEq/L (98-107); Glucose 229 mg/dL (70-105); Magnesium 1.8 mg/dL (1.6-2.6); Osmolality,Calculated 301 (280-300); Potassium 3.5 mEq/L (3.5-5.1); Sodium 141 mEq/L (136-145); eGFR For Non-African Americans > 60 (> 60)
[2018-04-13] MEDS ORDERED: Furosemide 40 MG/4 ML VIAL IVP ONE (08:08)
[2018-04-13] MEDS: Aspirin 81 MG TAB.CHEW PO SCH (10:04)
[2018-04-13] MEDS: Metoprolol XL (24 HR) Succ 25 MG TAB.ER.24H PO SCH (10:04)
[2018-04-13] MEDS: Insulin LISPRO 300 UNITS/3 ML VIAL SQ SCH ×4 (10:05→20:17)
--- NOTE | 2018-04-13 13:35 | Internal Med Progress Note ---
Hospitalist Progress Note - Encounter Date of Encounter: 04/13/18 Time of Encounter: 13:32 - Subjective Interval History: Feels like her swelling went down and her heart rate isn't running away anymore. Feels a bit less winded today with exertion. Hoping to see cardio today. - Exam Vitals: Temp Pulse Resp BP Pulse Ox 97.8 F 117 16 148/93 95 04/13/18 10:38 04/13/18 10:38 04/13/18 10:38 04/13/18 10:38 04/13/18 10:38 Exam: General: NAD, AAOx3, good eye contact, well appearing, normal work of breathing Thoracic: Decent aeration and no rhonchi or crackles, does have blunting R base Cardio: Normal S1 and S2, irregularly irregular rhythm, tachycardia Abdomen: Soft, nontender Extremities: Warm, well perfused. DP pulses 2+ b/l. Does have pitting edema b/l LE [facility] legs Skin: blister L simon bandaged Neuro: Awake, fully oriented. Speech fluent. - Assessment and Plan (1) Atrial fibrillation with RVR Current Visit: Yes Status: Acute - Summary of Assessment and Plan Summary of Assessment and Plan: Erica Merida is a 67 F w hx A-Fib on warfarin, HFpEF, COPD and hx PNAs on 2L, DM2, HLD, HTN, who p/w tachycardia, exertional dyspnea, and pedal edema, concerning for A-Fib RVR leading to acute HFpEF exacerbation. A-Fib RVR: AC on warfarin - dilt gtt, titrated to ~15 to maintain HR<110 - continue home Toprol 50 daily - cardio consult for consideration of inpatient sotalol load Acute HFpEF: improved overnight - Lasix 40 iv x1 tonight and reassess in AM Chronic respiratory failure (poa): 2L O2 at home following multiple episodes PNA, stable DM2: iatrogenic 2/2 steroid use, low SSI while inpatient HLD: home statin, ASA HTN: CCB and BB as above PPx: warfarin FEN: cardiac ADA 2L, no MIVF Lines: PIV Consults: Cardio Code: Full Dispo: patient requires inpatient eval and management at this time. Anticipate 2-3 days. Will be homegoing. - Time Spent with Patient Total time spent is greater than 50% in coordination of care (as documented) at patient's floor/unit and/or counseling patient: Internal Medicine: Result - Labs CBC & Chem 7: 04/13/18 05:21 04/13/18 05:21 Labs: Short CBC 04/12/18 04/13/18 Range/Units 13:45 05:21 WBC 11.4 H 6.9 (4.3-11.1) K/mcL Hgb 10.5 L 9.9 L (11.5-15.4) g/dL Hct 33.7 L 32.1 L (35.3-44.9) % Plt Count 341 256 (140-400) K/mcL Neutrophils # 10.1 H (1.6-8.9) K/mcL BMP 04/12/18 04/13/18 13:45 05:21 Sodium 142 141 Potassium 3.9 3.5 Chloride 102 102 Carbon Dioxide 28 27 BUN 16 17 Creatinine 0.65 0.56 L Glucose 196 H 229 H Calcium 8.8 9.2 Cardiac Enzymes 04/12/18 Range/Units 13:45 Troponin I < 0.03 (< 0.04) ng/mL - ABG Interpretation ABG results: PT/INR, D-dimer PT 32.1 Seconds (9.4-12.1) H 04/13/18 05:21 D-Dimer 242 ng/mLFEU (0-500) 04/12/18 13:45 - Impressions Impressions Chest X-Ray 04/12/18 13:27 IMPRESSION: Some improvement in bibasilar opacities. D/ / Kizzy Bartholomew MD / Kizzy Bartholomew MD Interpreting Provider: Kizzy Bartholomew MD Consult Discharge Plan - Plan Referrals: Aleksandar Strickland DO [Primary Care Provider] -
[2018-04-13] MEDS: *HR* Warfarin 2.5 MG TABLET PO SCH (17:12)
[2018-04-13] MEDS: predniSONE 10 MG TABLET PO SCH (18:12)
[2018-04-13] MEDS: Budesonide/Formoterol 160/4.5 1 PUFF INH IH SCH (20:11)
[2018-04-14 07:44] LABS: Hematocrit 31.3 % (35.3-44.9); Hemoglobin 9.7 g/dL (11.5-15.4); Mean Corpuscular Hemoglobin 26.8 pg (28.0-33.3); Mean Corpuscular Volume 86.5 fL (83.0-100.0); Mean Platelet Volume 8.6 fL (9.4-12.4); Platelet Count 364 K/mcL (140-400); Red Blood Count 3.62 M/mcL (3.82-4.97); Red Cell Distribution Width 16.3 % (11.5-14.5)
[2018-04-14] MEDS: Budesonide/Formoterol 160/4.5 1 PUFF INH IH SCH ×2 (07:45→20:10)
[2018-04-14 07:50] LABS: INR 3.6; Prothrombin Time 40.4 Seconds (9.4-12.1)
[2018-04-14 08:22] LABS: BUN/Creatinine Ratio 46 (6-26); Blood Urea Nitrogen 33 mg/dL (8-23); Calcium 9.2 mg/dL (8.6-10.3); Carbon Dioxide 27 mEq/L (23-29); Chloride 104 mEq/L (98-107); Glucose 174 mg/dL (70-105); Magnesium 2.2 mg/dL (1.6-2.6); Osmolality,Calculated 303 (280-300); Potassium 4.1 mEq/L (3.5-5.1); Sodium 141 mEq/L (136-145); eGFR For Non-African Americans > 60 (> 60)
[2018-04-14] MEDS: predniSONE 10 MG TABLET PO SCH (09:51)
[2018-04-14] MEDS: Metoprolol XL (24 HR) Succ 25 MG TAB.ER.24H PO SCH (09:51)
[2018-04-14] MEDS: Aspirin 81 MG TAB.CHEW PO SCH (09:51)
[2018-04-14] MEDS: Insulin LISPRO 300 UNITS/3 ML VIAL SQ SCH ×4 (09:52→21:12)
--- NOTE | 2018-04-14 09:55 | Electrophysiology H & P ---
Date of Encounter: 04/14/18 Time of Encounter: 09:52 Assessment and Plan (1) Atrial fibrillation with rapid ventricular response Current Visit: No Status: Acute The assessment and plan as outlined above was discussed with the patient and/or family members who expressed understanding and agreement. All questions were answered. As planned will initiate sotalol. Currently therapeutic on coumadin. History of Present Illness Chief complaint: Palpitations HPI: Ms. Merida is a 67 year old female with history of PAF. She is S/P cryoablation for AF. She has maintined sinus rhythm without antiarrythmic until recently. She was seen recently in the office for recurrent AF and an admission for antiarrythmic initiation was planned. She presents the the ER with SOB before that admission could be arranged. Past Med Surg Social Fam HX - Past Medical History Medical history: asthma, atrial fibrillation, CHF, diabetes, hyperlipidemia, hypertension, TIA Additional medical history: Breast CA, neuropathy, IBS Psychiatric history: no psych history - Past Surgical History Surgical History: breast surgery, cancer surgery, hysterectomy Additional surgical history: cardiac ablation, L mastectomy, LOOP recorder - Social History Smoking Status: Never smoker Smokeless Tobacco Status: No Alcohol use: none Drug use: none - Family History Father Family Member Ethnicity: Non- Living Status: Hx Family Cardiac Disorders: Yes (hypertension) Hx Family Respiratory Disorders: No Hx Family Cancer: No Hx Family GI Disorders: No Hx Family Endocrine Disorder: Yes (diabetes) Hx Family Neuromuscular Disorders: No Hx Family Neurologic Disorders: No Hx Family HEENT Disorders: No Hx Family Autoimmune Disorders: No Mother Adopted: No Family Member Ethnicity: Non- Living Status: Still Living Hx Family Cardiac Disorders: Yes (Afib) Hx Family Respiratory Disorders: No Hx Family Cancer: Yes (Colon) Hx Family GI Disorders: Yes (Cancer) Hx Family Endocrine Disorder: Yes Hx Family Neuromuscular Disorders: Yes (Stroke 2016) Hx Family Neurologic Disorders: No Hx Family HEENT Disorders: No Hx Family Autoimmune Disorders: No Medications and Allergies Aspirin 81 mg PO DAILY 11/10/14 [History] Psyllium Husk [Daily Fiber] 2 tab PO DAILY 10/15/15 [History] Omeprazole [PriLOSEC] 20 mg PO DAILY 11/29/15 [History] Acetaminophen [Tylenol] 500 mg PO Q6HR PRN 08/25/16 [History] Calcium Carbonate [Calcium] 600 mg PO DAILY 05/28/17 [History] Fluticasone Furoate [Arnuity Ellipta] 1 puff IH QAM 05/28/17 [History] Melatonin 5 mg PO HS PRN 05/28/17 [History] Diltiazem CD (24hr) [Cardizem CD] 360 mg PO DAILY #30 cap.er.24h 06/25/17 [Rx] Furosemide [Lasix] 40 mg PO DAILY PRN 07/26/17 [History] Rosuvastatin [Crestor] 10 mg PO HS 12/10/17 [History] Warfarin [Coumadin] 2.5 mg PO MOTUWETHFRSA 12/24/17 [History] Albuterol Sulfate [Ventolin Hfa] 2 puff PO Q6H PRN 01/28/18 [History] Metoprolol XL (24 HR) Succ [Toprol Xl] 50 mg PO DAILY 30 Days #30 tab.er.24h 02/05/18 [Rx] Allergy/AdvReac Type Severity Reaction Status Date / Time adhesive tape Allergy Hives Verified 01/28/18 11:45 All Systems Review: The remainder of the systems were reviewed and are negative Physical Examination Vital Signs, Last 4 Hours Temp Pulse Resp BP Pulse Ox 04/14/18 07:47 19 98 04/14/18 07:01 97.8 F 71 19 121/77 98 General: Conversant, No Apparent Distress HEENT: Atraumatic, Normocephaly, Mucus Membranes Moist Neck: No JVD, Normal carotid pulses Cardiac: Other (Irreg, mild tachy) Lungs: Other (decreased at bases) Neuro: Alert and responsive, No focal deficits noted Abdomen: Soft, Non-Tender Skin: No rashes noted on visualized skin Musculoskeletal: No Chest Wall Tenderness Extremities: No Clubbing, No Cyanosis, No Edema, Normal Pulses Results 04/14/18 07:31 04/14/18 07:31 Lab Results 04/14/18 04/14/18 04/14/18 07:31 07:31 07:31 WBC 14.9 H D Hgb 9.7 L Hct 31.3 L Plt Count 364 INR 3.6 Sodium 141 Potassium 4.1 Chloride 104 Carbon Dioxide 27 BUN 33 H Creatinine 0.72 Glucose 174 H Calcium 9.2 Magnesium 2.2 - EKG Interpretation EKG results cardiology: personally reviewed (AF, mild RVR)
--- NOTE | 2018-04-14 11:46 | Internal Med Progress Note ---
Hospitalist Progress Note - Encounter Date of Encounter: 04/14/18 Time of Encounter: 11:44 - Subjective Interval History: Swelling continues to improve. Heart rate still jumps up when she moves around which she can tell. She does mention that she had an episode of night sweats last night but otherwise denies acute complaints. - Exam Vitals: Temp Pulse Resp BP Pulse Ox 97.8 F 71 19 121/77 98 04/14/18 07:01 04/14/18 07:01 04/14/18 07:47 04/14/18 07:01 04/14/18 07:47 Exam: General: NAD, AAOx3, good eye contact, well appearing Thoracic: Decent aeration and no rhonchi or crackles, does have blunting R base (elevated hemidiaphragm) Cardio: Normal S1 and S2, irregularly irregular rhythm, tachycardia Abdomen: Soft, nontender Extremities: Warm, well perfused. DP pulses 2+ b/l. Does still have pitting edema b/l LE custodial up legs Skin: blister L simon bandaged Neuro: Awake, fully oriented. Speech fluent. - Assessment and Plan (1) Atrial fibrillation with RVR Current Visit: Yes Status: Acute - Summary of Assessment and Plan Summary of Assessment and Plan: Erica Merida is a 67 F w hx A-Fib on warfarin, HFpEF, COPD and hx PNAs on 2L, DM2, HLD, HTN, who p/w tachycardia, exertional dyspnea, and pedal edema, concerning for A-Fib RVR leading to acute HFpEF exacerbation. A-Fib RVR: AC on warfarin - dilt gtt, weaning today - continue home Toprol 50 daily - cardio consult, appreciate initiation of inpatient sotalol load Acute HFpEF: improving - repeat Lasix 40 iv x1 today Chronic respiratory failure: 2L O2 at home following multiple episodes PNA, stable DM2: iatrogenic 2/2 steroid use, low SSI while inpatient HLD: home statin, ASA HTN: CCB and BB as above PPx: warfarin FEN: cardiac ADA 2L, no MIVF Lines: PIV Consults: Cardio Code: Full Dispo: patient requires inpatient eval and management at this time. Anticipate 2 days. Will be homegoing. - Time Spent with Patient Total time spent is greater than 50% in coordination of care (as documented) at patient's floor/unit and/or counseling patient: Internal Medicine: Result - Labs CBC & Chem 7: 04/14/18 07:31 04/14/18 07:31 Labs: Short CBC 04/14/18 Range/Units 07:31 WBC 14.9 H D (4.3-11.1) K/mcL Hgb 9.7 L (11.5-15.4) g/dL Hct 31.3 L (35.3-44.9) % Plt Count 364 (140-400) K/mcL BMP 04/14/18 07:31 Sodium 141 Potassium 4.1 Chloride 104 Carbon Dioxide 27 BUN 33 H Creatinine 0.72 Glucose 174 H Calcium 9.2 - ABG Interpretation ABG results: PT/INR, D-dimer PT 40.4 Seconds (9.4-12.1) H 04/14/18 07:31 D-Dimer 242 ng/mLFEU (0-500) 04/12/18 13:45 Consult Discharge Plan - Plan Referrals: Aleksandar Strickland DO [Primary Care Provider] -
[2018-04-14] MEDS ORDERED: Furosemide 40 MG/4 ML VIAL IVP ONE (11:47)
[2018-04-14] MEDS ORDERED: Warfarin perPT PO PRN (18:00)
[2018-04-14] MEDS: Acetaminophen 325 MG TABLET PO PRN (21:37)
[2018-04-14] MEDS: Melatonin 3 MG TABLET PO PRN (23:40)
[2018-04-15 08:35] LABS: Hematocrit 31.2 % (35.3-44.9); Hemoglobin 9.5 g/dL (11.5-15.4); Mean Corpuscular HGB Conc 30.4 g/dL (31.6-35.5); Mean Corpuscular Hemoglobin 26.3 pg (28.0-33.3); Mean Corpuscular Volume 86.4 fL (83.0-100.0); Mean Platelet Volume 8.7 fL (9.4-12.4); Platelet Count 348 K/mcL (140-400); Red Blood Count 3.61 M/mcL (3.82-4.97); Red Cell Distribution Width 16.3 % (11.5-14.5)
[2018-04-15 08:45] LABS: INR 3.7; Prothrombin Time 42.2 Seconds (9.4-12.1)
[2018-04-15 08:49] LABS: BUN/Creatinine Ratio 54 (6-26); Blood Urea Nitrogen 44 mg/dL (8-23); Calcium 9.1 mg/dL (8.6-10.3); Carbon Dioxide 30 mEq/L (23-29); Chloride 106 mEq/L (98-107); Glucose 125 mg/dL (70-105); Magnesium 2.1 mg/dL (1.6-2.6); Osmolality,Calculated 309 (280-300); Potassium 3.6 mEq/L (3.5-5.1); Sodium 143 mEq/L (136-145); eGFR For Non-African Americans > 60 (> 60)
[2018-04-15] MEDS: Aspirin 81 MG TAB.CHEW PO SCH (08:57)
[2018-04-15] MEDS: predniSONE 10 MG TABLET PO SCH (08:57)
[2018-04-15] MEDS: Metoprolol XL (24 HR) Succ 25 MG TAB.ER.24H PO SCH ×2 (08:58→12:24)
[2018-04-15] MEDS: Insulin LISPRO 300 UNITS/3 ML VIAL SQ SCH ×4 (08:58→20:38)
[2018-04-15] MEDS: Acetaminophen 325 MG TABLET PO PRN (09:09)
[2018-04-15] MEDS: Budesonide/Formoterol 160/4.5 1 PUFF INH IH SCH ×2 (10:40→22:11)
--- NOTE | 2018-04-15 11:33 | Cardiology Progress Note ---
Date of Encounter: 04/15/18 Time of Encounter: 11:00 Assessment and Plan (1) Atrial fibrillation Current Visit: Yes Status: Chronic Presented with concern for lower extremity edema and afib with RVR. Afib with RVR 140's upon arrival. Longstanding hx of PAF s/p cryoablation and has failed multiple antiarrhythmics in the past. Recently evaluated by EP in the outpatient setting, plan for direct admission for sotalol therapy for symptomatic PAF. Seen and evaluated by Dr.John Ness yesterday, 04/14/18 and sotalol 80 mg Q12H started. s/p 2 doses today upon exam. ECG this AM afib (62 BPM) QT/QTc 431,437 ms. Will need inpatient monitoring for at least 5 doses. Now NSR upon exam, HR 60-70's with frequent PACs. Toprol XL held due to concern for hypotension, bradycardia, will decrease dose to 25 mg daily. Continue coumadin for AC, goal INR 2-3. Pharmacy to dose as inpt. Of note, subtherapeutic on 04/04/18---1.8; if would need DCCV, will recommend [facility]KEY prior. INR has been therapeutic since admission. Qualifiers: Atrial fibrillation type: paroxysmal Qualified Code(s): I48.0 - Paroxysmal atrial fibrillation Discussion w patient/family: The assessment and plan as outlined above was discussed with the patient and/or family members who expressed understanding and agreement. All questions were answered. Thank you for involving us in the care of your patient. Please call with any questions. The patient will be discussed and reviewed with Dr. Alvarez; changes to be made accordingly. Subjective Principal diagnosis: PAF Interval history: Seen and examined. Converted to NSR this AM, frequent PACs noted. No other complaints upon exam, edema improved. Objective Vital Signs, Last 4 Hours Pulse Resp BP Pulse Ox 04/15/18 10:40 16 96 04/15/18 08:00 52 16 100/66 98 General: Conversant, No Apparent Distress HEENT: Atraumatic, Normocephaly, Mucus Membranes Moist Cardiac: Reg Rate and Rhythm, Normal S1 and S2 Lungs: Normal Breath Sounds Neuro: Alert and responsive Abdomen: Soft Skin: No rashes noted on visualized skin Musculoskeletal: No Chest Wall Tenderness Extremities: Other (+1 BLE edema to knees) Results 04/15/18 08:18 04/15/18 08:18 Lab Results 04/15/18 04/15/18 04/15/18 08:18 08:18 08:18 WBC 9.4 Hgb 9.5 L Hct 31.2 L Plt Count 348 INR 3.7 Sodium 143 Potassium 3.6 Chloride 106 Carbon Dioxide 30 H BUN 44 H Creatinine 0.82 Glucose 125 H Calcium 9.1 Magnesium 2.1 Active Medications Acetaminophen (Tylenol) 650 mg PO Q6HR PRN PRN Reason: Mild Pain/Fever Stop: 10/12/18 19:14 Last Admin: 04/15/18 09:09 Dose: 650 mg Albuterol Sulfate (Albuterol Inhaler) 2 puff IH Q6H PRN PRN Reason: Shortness Of Breath Stop: 10/12/18 19:04 Aspirin (Aspirin) 81 mg PO DAILY PERFECTO Stop: 10/13/18 09:01 Last Admin: 04/15/18 08:57 Dose: 81 mg Budesonide/Formoterol Fumarate (Symbicort) 2 puff IH BIDR PERFECTO; Protocol Stop: 10/13/18 22:01 Last Admin: 04/15/18 10:40 Dose: 2 puff Dextrose/Water (Dextrose 50% (Syg)) 25 ml IVP AD PRN PRN Reason: Hypoglycemia Stop: 10/12/18 19:05 Glucagon (Glucagen) 1 mg IM ONCE PRN PRN Reason: Hypoglycemia Stop: 10/12/18 19:05 Glucose (Gluctose) 15 gm PO ONCE PRN PRN Reason: Hypoglycemia Stop: 10/12/18 19:05 Glucose (Gluctose) 30 gm PO ONCE PRN PRN Reason: Hypoglycemia Stop: 10/12/18 19:05 Dextrose (Dextrose 5%) 1,000 mls @ 100 mls/hr IVC .Q10H PRN PRN Reason: HYPOGLYCEMIA Stop: 10/12/18 19:05 Diltiazem HCl 125 mg/ Sodium (Chloride) 125 mls @ 5 mls/hr IVC .Q24H [facility]; Protocol Stop: 10/13/18 11:46 Last Titration: 04/15/18 09:17 Dose: 0 mg/hr, 0 mls/hr Insulin Human Lispro (Humalog) 0 units SQ HS PERFECTO; Protocol Stop: 10/12/18 21:01 Last Admin: 04/14/18 21:12 Dose: Not Given Insulin Human Lispro (Humalog) 0 units SQ TIDAC [facility]; Protocol Stop: 10/12/18 19:16 Last Admin: 04/15/18 08:58 Dose: Not Given Melatonin (Melatonin) 3 mg PO HS PRN PRN Reason: Sleep Last Admin: 04/14/18 23:40 Dose: 3 mg Metoprolol Succinate (Toprol Xl) 50 mg PO DAILY [facility] Stop: 10/12/18 19:16 Last Admin: 04/15/18 08:58 Dose: Not Given Naloxone HCl (Narcan) 0.4 mg IVP Q2MIN PRN PRN Reason: SEE COMMENTS Stop: 10/12/18 19:14 Prednisone (Prednisone) 10 mg PO DAILY [facility] Stop: 10/13/18 17:16 Last Admin: 04/15/18 08:57 Dose: 10 mg Sotalol HCl (Betapace) 80 mg PO Q12HR [facility] Stop: 10/14/18 18:01 Last Admin: 04/15/18 06:14 Dose: 80 mg Warfarin Sodium (Coumadin Perpt) 1 each PO DAILY@1800 PRN PRN Reason: SEE COMMENTS Stop: 10/14/18 18:01 - Imaging and Cardiology Echo: report reviewed - EKG Interpretation EKG results cardiology: personally reviewed Consult Discharge Plan - Plan Referrals: Aleksandar Strickland DO [Primary Care Provider] -
--- NOTE | 2018-04-15 12:01 | Internal Med Progress Note ---
Hospitalist Progress Note - Encounter Date of Encounter: 04/15/18 Time of Encounter: 11:58 - Subjective Interval History: Still swollen in legs but says is improved from admission. SOB is improving as well. No longer feeling winded with exertion as much, and no palpitations. She is glad her heart seems to have converted to NSR as she hopes to avoid another cardioversion. - Exam Vitals: Temp Pulse Resp BP Pulse Ox 98 F 52 16 100/66 96 04/15/18 04:00 04/15/18 08:00 04/15/18 10:40 04/15/18 08:00 04/15/18 10:40 Exam: General: NAD, AAOx3, good eye contact, well appearing Thoracic: Decent aeration and no rhonchi or crackles, does have blunting R base (elevated hemidiaphragm) Cardio: Normal S1 and S2, regular rate and rhythm Abdomen: Soft, nontender Extremities: Warm, well perfused. DP pulses 2+ b/l. Does still have pitting edema b/l LE residential up legs Skin: blister L simon bandaged Neuro: Awake, fully oriented. Speech fluent. - Assessment and Plan (1) Atrial fibrillation with RVR Current Visit: Yes Status: Acute - Summary of Assessment and Plan Summary of Assessment and Plan: Erica Merida is a 67 F w hx A-Fib on warfarin, HFpEF, COPD and hx PNAs on 2L, DM2, HLD, HTN, who p/w tachycardia, exertional dyspnea, and pedal edema, concerning for A-Fib RVR leading to acute HFpEF exacerbation. A-Fib RVR: AC on warfarin - d/c dilt gtt - decrease home Toprol to 25 daily - continue sotalol load 80 bid followed by ECG after first 5 doses - cardio following, appreciate rec's Acute HFpEF: improving - will place patient on PO lasix 40 bid Chronic respiratory failure: 2L O2 at home following multiple episodes PNA, stable DM2: iatrogenic 2/2 steroid use, low SSI while inpatient HLD: home statin, ASA HTN: CCB and BB as above PPx: warfarin FEN: cardiac ADA 2L, no MIVF Lines: PIV Consults: Cardio Code: Full Dispo: patient requires inpatient eval and management at this time. Anticipate 1-2 days. Will be homegoing. - Time Spent with Patient Total time spent is greater than 50% in coordination of care (as documented) at patient's floor/unit and/or counseling patient: Internal Medicine: Result - Labs CBC & Chem 7: 04/15/18 08:18 04/15/18 08:18 Labs: Short CBC 04/15/18 Range/Units 08:18 WBC 9.4 (4.3-11.1) K/mcL Hgb 9.5 L (11.5-15.4) g/dL Hct 31.2 L (35.3-44.9) % Plt Count 348 (140-400) K/mcL BMP 04/15/18 08:18 Sodium 143 Potassium 3.6 Chloride 106 Carbon Dioxide 30 H BUN 44 H Creatinine 0.82 Glucose 125 H Calcium 9.1 - ABG Interpretation ABG results: PT/INR, D-dimer PT 42.2 Seconds (9.4-12.1) H 04/15/18 08:18 D-Dimer 242 ng/mLFEU (0-500) 04/12/18 13:45 Consult Discharge Plan - Plan Referrals: Aleksandar Strickland DO [Primary Care Provider] -
[2018-04-15] MEDS: Furosemide 40 MG TABLET PO SCH (17:27)
--- NOTE | 2018-04-15 17:38 | Electrocardiograph Report ---
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
[2018-04-15] MEDS: Melatonin 3 MG TABLET PO PRN (22:51)
[2018-04-16 05:51] LABS: INR 3.2; Prothrombin Time 35.9 Seconds (9.4-12.1)
[2018-04-16 06:06] LABS: BUN/Creatinine Ratio 50 (6-26); Blood Urea Nitrogen 34 mg/dL (8-23); Calcium 8.9 mg/dL (8.6-10.3); Carbon Dioxide 30 mEq/L (23-29); Chloride 107 mEq/L (98-107); Glucose 112 mg/dL (70-105); Magnesium 2.1 mg/dL (1.6-2.6); Osmolality,Calculated 306 (280-300); Potassium 3.5 mEq/L (3.5-5.1); Sodium 144 mEq/L (136-145); eGFR For Non-African Americans > 60 (> 60)
[2018-04-16] MEDS: Budesonide/Formoterol 160/4.5 1 PUFF INH IH SCH ×2 (07:28→20:19)
[2018-04-16] MEDS: Furosemide 40 MG TABLET PO SCH ×2 (08:11→17:20)
[2018-04-16] MEDS: Metoprolol XL (24 HR) Succ 25 MG TAB.ER.24H PO SCH (08:11)
[2018-04-16] MEDS: Aspirin 81 MG TAB.CHEW PO SCH (08:11)
[2018-04-16] MEDS: predniSONE 10 MG TABLET PO SCH (08:11)
[2018-04-16] MEDS: Insulin LISPRO 300 UNITS/3 ML VIAL SQ SCH ×4 (08:12→20:49)
[2018-04-16 10:07] LABS: Basophils % 0.3 %; Eosinophils # 0.1 K/mcL (0.0-0.6); Eosinophils % 1.1 %; Hematocrit 32.2 % (35.3-44.9); Hemoglobin 9.8 g/dL (11.5-15.4); Immature Granulocytes % 1.9 % (0-4); Lymphocytes # 1.2 K/mcL (0.6-4.6); Lymphocytes % 12.7 %; Mean Corpuscular HGB Conc 30.4 g/dL (31.6-35.5); Mean Corpuscular Hemoglobin 26.6 pg (28.0-33.3); Mean Corpuscular Volume 87.3 fL (83.0-100.0); Mean Platelet Volume 8.9 fL (9.4-12.4); Monocytes # 0.6 K/mcL (0.0-1.3); Monocytes % 6.3 %; Neutrophils # 7.1 K/mcL (1.6-8.9); Platelet Count 324 K/mcL (140-400); Red Blood Count 3.69 M/mcL (3.82-4.97); Segmented Neutrophils % 77.7 %
--- NOTE | 2018-04-16 11:35 | Cardiology Progress Note ---
Date of Encounter: 04/16/18 Time of Encounter: 09:00 Assessment and Plan (1) Atrial fibrillation Current Visit: Yes Status: Chronic Per cardiology: -Presented with concern for lower extremity edema and afib with RVR. -Afib with RVR 140's upon arrival. -Longstanding hx of PAF s/p cryoablation and has failed multiple antiarrhythmics in the past. -Recently evaluated by EP in the outpatient setting, plan for direct admission for sotalol therapy for symptomatic PAF. -Seen and evaluated by Dr.John Ness, 04/14/18 and sotalol 80 mg Q12H started. -s/p 4 doses today upon exam. ECG this am SR, HR 61, QT 457ms/QTc 461ms. QT/QTc stable. Will need inpatient monitoring for at least 5 doses. -Now NSR upon exam, HR 60-70's with frequent PACs. On toprol 25 mg daily. -Continue coumadin for AC, goal INR 2-3. Pharmacy to dose as inpt. -Of note, subtherapeutic on 04/04/18---1.8; if would need DCCV, will recommend MIKEY prior. INR has been therapeutic since admission. -5th dose of sotalol this evening. -Patient would like discharge in am. -Will Repeat ECG in am, if QT/QTc stable and in SR, anticipate cardiology sign off in am. Qualifiers: Atrial fibrillation type: paroxysmal Qualified Code(s): I48.0 - Paroxysmal atrial fibrillation Discussion w patient/family: The assessment and plan as outlined above was discussed with the patient who expressed understanding and agreement. All questions were answered. Thank you for involving us in the care of your patient. Please call with any questions. Discussed and reviewed with . Subjective Principal diagnosis: PAF Interval history: Patient reports she feels well today, denies complaints. Objective Vital Signs Temperature 97.3 F L 04/12/18 13:16 Pulse Rate 125 04/12/18 13:16 Respiratory Rate 22 04/12/18 13:16 Blood Pressure 153/78 04/12/18 13:16 O2 Sat by Pulse Oximetry 95 04/12/18 13:16 Temperature 98.2 F 04/16/18 06:33 Pulse Rate 62 04/16/18 06:33 Respiratory Rate 16 04/16/18 07:29 Blood Pressure 134/74 02/12/19 06:33 O2 Sat by Pulse Oximetry 95 04/16/18 07:29 Oxygen Delivery Oxygen Delivery Nasal Cannula General: Conversant, No Apparent Distress HEENT: Atraumatic, Normocephaly, Mucus Membranes Moist Neck: No JVD, Normal carotid pulses Cardiac: Reg Rate and Rhythm, Normal S1 and S2, No Murmur Lungs: Normal Breath Sounds, No Wheeze, Rales, Rhonchi Neuro: Alert and responsive, No focal deficits noted Abdomen: Soft, Non-Tender Skin: No rashes noted on visualized skin Musculoskeletal: No Chest Wall Tenderness Extremities: No Clubbing, No Cyanosis, Normal Pulses, Other (Mild lower extremity edema, non-pitting. ) Results 04/16/18 09:36 04/16/18 05:16 Lab Results Active Medications Acetaminophen (Tylenol) 650 mg PO Q6HR PRN PRN Reason: Mild Pain/Fever Stop: 10/12/18 19:14 Last Admin: 04/15/18 09:09 Dose: 650 mg Albuterol Sulfate (Albuterol Inhaler) 2 puff IH Q6H PRN PRN Reason: Shortness Of Breath Stop: 10/12/18 19:04 Aspirin (Aspirin) 81 mg PO DAILY PERFECTO Stop: 10/13/18 09:01 Last Admin: 04/16/18 08:11 Dose: 81 mg Budesonide/Formoterol Fumarate (Symbicort) 2 puff IH BIDR PERFECTO; Protocol Stop: 10/13/18 22:01 Last Admin: 04/16/18 07:28 Dose: 2 puff Dextrose/Water (Dextrose 50% (Syg)) 25 ml IVP AD PRN PRN Reason: Hypoglycemia Stop: 10/12/18 19:05 Furosemide (Lasix) 40 mg PO BIDDIURETIC PERFECTO Stop: 10/15/18 17:01 Last Admin: 04/16/18 08:11 Dose: 40 mg Glucagon (Glucagen) 1 mg IM ONCE PRN PRN Reason: Hypoglycemia Stop: 10/12/18 19:05 Glucose (Gluctose) 15 gm PO ONCE PRN PRN Reason: Hypoglycemia Stop: 10/12/18 19:05 Glucose (Gluctose) 30 gm PO ONCE PRN PRN Reason: Hypoglycemia Stop: 10/12/18 19:05 Dextrose (Dextrose 5%) 1,000 mls @ 100 mls/hr IVC .Q10H PRN PRN Reason: HYPOGLYCEMIA Stop: 10/12/18 19:05 Insulin Human Lispro (Humalog) 0 units SQ HS [facility]; Protocol Stop: 10/12/18 21:01 Last Admin: 04/15/18 20:38 Dose: Not Given Insulin Human Lispro (Humalog) 0 units SQ TIDAC [facility]; Protocol Stop: 10/12/18 19:16 Last Admin: 04/16/18 08:12 Dose: Not Given Melatonin (Melatonin) 3 mg PO HS PRN PRN Reason: Sleep Last Admin: 04/15/18 22:51 Dose: 3 mg Metoprolol Succinate (Toprol Xl) 25 mg PO DAILY [facility] Stop: 10/15/18 12:01 Last Admin: 04/16/18 08:11 Dose: 25 mg Naloxone HCl (Narcan) 0.4 mg IVP Q2MIN PRN PRN Reason: SEE COMMENTS Stop: 10/12/18 19:14 Prednisone (Prednisone) 10 mg PO DAILY [facility] Stop: 10/13/18 17:16 Last Admin: 04/16/18 08:11 Dose: 10 mg Sotalol HCl (Betapace) 80 mg PO Q12HR [facility] Stop: 10/14/18 18:01 Last Admin: 04/16/18 05:16 Dose: 80 mg Warfarin Sodium (Coumadin Perpt) 1 each PO DAILY@1800 PRN PRN Reason: SEE COMMENTS Stop: 10/14/18 18:01 Laboratory Tests 04/16/18 04/16/18 04/16/18 05:16 05:16 09:36 Hgb 9.8 L INR 3.2 Creatinine 0.68 - Imaging and Cardiology Chest Xray: report reviewed Echo: report reviewed - EKG Interpretation EKG results cardiology: other (Telemetry reviewed with average HR previous 12 hours noted to be 65, SR. PVCs, frequent PACs noted.) Consult Discharge Plan - Plan Referrals: Aleksandar Strickland DO [Primary Care Provider] -
--- NOTE | 2018-04-16 16:11 | Internal Med Progress Note ---
Hospitalist Progress Note - Encounter Date of Encounter: 04/16/18 Time of Encounter: 12:35 - Subjective Interval History: Patient was seen and assessed at bedside at 1235. Patient is sitting up in bed in no distress eating her lunch. She reports that she normally wears 2 L of oxygen at home. Her shortness of breath has improved. She reports having an ablation for A. fib last June. She denies chest pain, shortness of breath, nausea, vomiting, diarrhea, fever, chills. - Exam Vitals: Temp Pulse Resp BP Pulse Ox 98.2 F 67 16 122/64 91 04/16/18 06:33 04/16/18 11:55 04/16/18 11:55 04/16/18 11:55 04/16/18 11:55 Exam: General: Pt resting quietly on bed, no distress. Skin: pwd, no rashes, lesions, redness Neurological: Pt is alert and awake, oriented x 3, Speech is clear, PERRLA, EOMI, no nystagmus, no pronator drift. strength equal x 4 extremities HEENT: mucous mumbranes moist, no conjuctival pallor Neck: supple, no tracheal deviation, no lymphadenopathy, tenderness, no thyromegaly Heart: S1S2 heard without gallops, clicks, murmurs, no bradycardia or tachycardia, pt has no peripheral edema, pedal and radial pulses palpable bilaterally. Lungs: clear throughout without wheezing, rales, or ronchi, respirations are unlabored Abdomen: soft and non tender with bowel sound present, no hepatomegaly. Psych: Normal affect with good eye contact - Assessment and Plan (1) Chronic respiratory failure Current Visit: Yes Status: Acute Assessment and Plan: Patient reports chronic respiratory failure with, to use after several episodes of pneumonia. She denies increased use recently. Home O2 Continue telemetry Continue O2 as needed to maintain sats greater than 92% (2) Atrial fibrillation with RVR Current Visit: Yes Status: Acute Assessment and Plan: She was receiving dose 5/6 of sotalol 80 mg tonight, last dose will be in the morning. She is anticoagulated on warfarin, INR is therapeutic Decrease Toprol to 25 mg daily, decreased due to risk of hypotension as well as bradycardia Cardiology is following Continue telemetry (3) (HFpEF) heart failure with preserved ejection fraction Current Visit: Yes Status: Acute Assessment and Plan: Acute on chronic. Patient reports improving bilateral lower extremity edema. She has +3 pitting edema to bilateral lower extremities, feet +1 nonpitting Patient is getting 40 mg Lasix by mouth twice a day We will decrease to 40 mg daily at discharge. Plan as above (4) Type II diabetes mellitus Current Visit: Yes Status: Acute Assessment and Plan: Poorly controlled. A1c 8.7% Continue SSI, accuchecks achs, and diabetic diet (5) HTN (hypertension) Current Visit: Yes Status: Chronic Assessment and Plan: Chronic. Well controlled Continue current medication regimen. DVT Prophylaxis: Continue warfarin. INR therapeutic 3.2. - Time Spent with Patient Total time spent is greater than 50% in coordination of care (as documented) at patient's floor/unit and/or counseling patient: less than 15 minutes Plan of Care Discussed with: case management Internal Medicine: Result - Labs CBC & Chem 7: 04/16/18 09:36 04/16/18 05:16 Labs: Short CBC 04/16/18 Range/Units 09:36 WBC 9.1 (4.3-11.1) K/mcL Hgb 9.8 L (11.5-15.4) g/dL Hct 32.2 L (35.3-44.9) % Plt Count 324 (140-400) K/mcL Neutrophils # 7.1 (1.6-8.9) K/mcL BMP 04/16/18 05:16 Sodium 144 Potassium 3.5 Chloride 107 Carbon Dioxide 30 H BUN 34 H Creatinine 0.68 Glucose 112 H Calcium 8.9 - ABG Interpretation ABG results: PT/INR, D-dimer PT 35.9 Seconds (9.4-12.1) H 04/16/18 05:16 D-Dimer 242 ng/mLFEU (0-500) 04/12/18 13:45 Consult Discharge Plan - Plan Referrals: Aleksandar Strickland DO [Primary Care Provider] - (3) (HFpEF) heart failure with preserved ejection fraction Qualifiers: Heart failure chronicity: acute on chronic Qualified Code(s): I50.33 - Acute on chronic diastolic (congestive) heart failure (5) HTN (hypertension) Qualifiers: Hypertension type: essential hypertension Qualified Code(s): I10 - Essential (primary) hypertension
[2018-04-16] MEDS ORDERED: *HR* Warfarin 2 MG TABLET PO ONE (18:00)
--- NOTE | 2018-04-16 18:36 | Electrocardiograph Report ---
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
--- NOTE | 2018-04-16 20:49 | Electrocardiograph Report ---
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
[2018-04-16] MEDS: Melatonin 3 MG TABLET PO PRN (23:02)
[2018-04-17 07:43] VITALS: BP 138/63
[2018-04-17] MEDS: Budesonide/Formoterol 160/4.5 1 PUFF INH IH SCH (07:55)
--- NOTE | 2018-04-17 08:17 | Event Note ---
Date of Encounter: 04/17/18 Time of Encounter: 08:15 - Cardiology Event Note Patient admitted with sarath, started on sotalol this admission. Is currently s/p 6 total doses of sotalol. ECG this am with SR, PACs noted, QT 432/QTc 446ms. QT/QTc has remained stable. Currently SR per telemetry. Continue coumadin for anticoagulation. Cardiology will sign off, will arrange outpatient follow up.
[2018-04-17] MEDS: Insulin LISPRO 300 UNITS/3 ML VIAL SQ SCH ×2 (08:26→12:11)
[2018-04-17 08:48] LABS: Basophils # 0.1 K/mcL (0.0-0.2); Basophils % 0.6 %; Eosinophils # 0.1 K/mcL (0.0-0.6); Eosinophils % 1.1 %; Hematocrit 32.7 % (35.3-44.9); Hemoglobin 9.9 g/dL (11.5-15.4); Immature Granulocytes % 3.6 % (0-4); Lymphocytes # 1.4 K/mcL (0.6-4.6); Lymphocytes % 14.5 %; Mean Corpuscular HGB Conc 30.3 g/dL (31.6-35.5); Mean Corpuscular Hemoglobin 26.2 pg (28.0-33.3); Mean Corpuscular Volume 86.5 fL (83.0-100.0); Mean Platelet Volume 8.7 fL (9.4-12.4); Monocytes # 0.6 K/mcL (0.0-1.3); Monocytes % 6.4 %; Neutrophils # 6.9 K/mcL (1.6-8.9); Nucleated Red Blood Cells 0.3 /100 WBC (0); Platelet Count 308 K/mcL (140-400); Red Blood Count 3.78 M/mcL (3.82-4.97); Red Cell Distribution Width 16.1 % (11.5-14.5); Segmented Neutrophils % 73.8 %
[2018-04-17 08:54] LABS: INR 2.8; Prothrombin Time 32.1 Seconds (9.4-12.1)
[2018-04-17] MEDS: Aspirin 81 MG TAB.CHEW PO SCH (08:59)
[2018-04-17] MEDS: predniSONE 10 MG TABLET PO SCH (08:59)
[2018-04-17] MEDS: Metoprolol XL (24 HR) Succ 25 MG TAB.ER.24H PO SCH (08:59)
[2018-04-17] MEDS: Furosemide 40 MG TABLET PO SCH (09:00)
[2018-04-17 09:11] LABS: BUN/Creatinine Ratio 41 (6-26); Blood Urea Nitrogen 28 mg/dL (8-23); Calcium 8.9 mg/dL (8.6-10.3); Carbon Dioxide 34 mEq/L (23-29); Chloride 103 mEq/L (98-107); Glucose 120 mg/dL (70-105); Osmolality,Calculated 307 (280-300); Potassium 3.3 mEq/L (3.5-5.1); Sodium 145 mEq/L (136-145); eGFR For Non-African Americans > 60 (> 60)
--- NOTE | 2018-04-17 14:03 | Electrocardiograph Report ---
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
--- NOTE | 2018-04-17 14:39 | Discharge Summary ---
Orders not resulted at time of discharge: Pending orders 04/12/18 13:45 Procalcitonin Stat 04/18/18 04:00 Basic Metabolic Panel AM 0400 Complete Blood Count [HEME] AM 0400 PT/INR [Prothrombin Time INR] [COAG] AM 0400 04/19/18 04:00 Basic Metabolic Panel AM 0400 Complete Blood Count [HEME] AM 0400 PT/INR [Prothrombin Time INR] [COAG] AM 0400 Date of Encounter: 04/17/18 Time of Encounter: 14:34 Hospital course: Ms. Merida is a 67 year old female w hx A-Fib on warfarin, HFpEF, DM2, HLD, HTN, who presents with shortness of breath and leg swelling. She states her "A- fib is acting up" and that she saw her telegraph printer mechanic recently who recommended inpatient sotalol load for rhythm control. However, in the last 2-3 days, she's felt her heart really racing. Yesterday, she noticed she was also getting short of breath, worse with exertion, and needing more O2. Denies fever, chills, cough, fatigue/malaise. Has been consistently taking her medications which include 10 mg prednisone daily and do not include scheduled lasix, but she did take lasix today without much effect. Of note she is scheduled in a few weeks for inpatient sotalol load with Cardio Dr Jose Armando Ness. (1) Chronic respiratory failure, on 2 l NC at home Current Visit: Yes Status: Acute Assessment and Plan: Patient reports chronic respiratory failure with, to use after several episodes of pneumonia. She denies increased use recently. Home O2 Continue telemetry Continue O2 as needed to maintain sats greater than 92% (2) Atrial fibrillation with RVR Current Visit: Yes Status: Acute Assessment and Plan: She was receiving dose 5/6 of sotalol 80 mg tonight, last dose will be in the morning. She is anticoagulated on warfarin, INR is therapeutic Decrease Toprol to 25 mg daily, decreased due to risk of hypotension as well as bradycardia Cardiology is ok to discharge on metoprolol 25 mg daily with sotalol, follow up as OP d/c katelynn (3) (HFpEF) heart failure with preserved ejection fraction Current Visit: Yes Status: Acute Assessment and Plan: Acute on chronic. Patient reports improving bilateral lower extremity edema. She has +3 pitting edema to bilateral lower extremities, feet +1 nonpitting Patient is getting 40 mg Lasix by mouth twice a day conitnue lasix (4) Type II diabetes mellitus Current Visit: Yes Status: Acute Assessment and Plan: Poorly controlled. A1c 8.7% Continue SSI, accuchecks achs, and diabetic diet (5) HTN (hypertension (6) Morbid mobesity with BMI 40.5 DVT Prophylaxis: Continue warfarin. INR therapeutic 2.8 - Time Spent with Patient Total time spent providing and/or coordinating discharge services: - Discharge Medications Prescriptions: Sotalol [Betapace] 80 mg PO Q12HR #60 tablet Home Medications: Aspirin 81 mg PO DAILY 11/10/14 [History] Psyllium Husk [Daily Fiber] 2 tab PO DAILY 10/15/15 [History] Omeprazole [PriLOSEC] 20 mg PO DAILY 11/29/15 [History] Calcium Carbonate [Calcium] 500 mg PO DAILY 05/28/17 [History] Fluticasone Furoate [Arnuity Ellipta] 1 puff IH DAILY 05/28/17 [History] Melatonin 5 mg PO HS PRN 05/28/17 [History] Furosemide [Lasix] 40 mg PO DAILY PRN 07/26/17 [History] Albuterol Sulfate [Ventolin Hfa] 2 puff PO Q6H PRN 01/28/18 [History] Acetaminophen [Tylenol] 500 mg PO DAILY PRN 04/14/18 [History] Acetaminophen/Chlorpheniramine [Coricidin Hbp Cold & Flu Tab] 1 tab PO Q6H PRN 04/14/18 [History] DiphenhydraMINE [Benadryl] 25 mg PO HS PRN 04/14/18 [History] Warfarin Sodium 2.5 mg PO SUMOTUWETHFRSA 04/14/18 [History] predniSONE [PredniSONE] 10 mg PO DAILY 04/14/18 [History] Metoprolol XL (24 HR) Succ [Toprol Xl] 25 mg PO DAILY tab.er.24h 04/17/18 [Rx] Sotalol [Betapace] 80 mg PO Q12HR #60 tablet 04/17/18 [Rx] Allergies/Adverse Reactions: Allergy/AdvReac Type Severity Reaction Status Date / Time adhesive tape Allergy Hives Verified 01/28/18 11:45 Date of admission: 04/12/18 19:13 Primary care physician: Aleksandar Strickland DO Consults: 04/13/18 16:56 Consult to Cardiology [CONS] Routine Comment: Consulting Provider: Cardiology Sayra Reason for Consult: a-fib rvr. Dr. Cordoba spoke with Dr. Ness in ED. Call Completed: Yes - Constitutional Vitals: Temp Pulse Resp BP Pulse Ox 97.6 F 59 16 138/63 96 04/17/18 07:38 04/17/18 07:38 04/17/18 10:42 04/17/18 07:38 04/17/18 10:42 General appearance: Present: A&O X 3, pleasant Exam: General: Pt resting quietly on bed, no distress. Skin: pwd, no rashes, lesions, redness Neurological: Pt is alert and awake, oriented x 3, Speech is clear, PERRLA, EOMI, no nystagmus, no pronator drift. strength equal x 4 extremities HEENT: mucous mumbranes moist, no conjuctival pallor Neck: supple, no tracheal deviation, no lymphadenopathy, tenderness, no thyromegaly Heart: S1S2 heard without gallops, clicks, murmurs, no bradycardia or tachycardia, pt has no peripheral edema, pedal and radial pulses palpable bilaterally. Lungs: clear throughout without wheezing, rales, or ronchi, respirations are unlabored Abdomen: soft and non tender with bowel sound present, no hepatomegaly. Psych: Normal affect with good eye contact - Patient Status Disposition: Home, Self-Care Condition: Fair Functional capacity at discharge: independent ambulation Overall status at discharge: patient is back to baseline - Discharge Instructions Instructions: Sotalol (By mouth), Heart Failure (DC), Atrial Fibrillation (DC), Chest Pain (DC), Urinary Tract Infection in Women (DC), Diabetes Mellitus Type 2 in Adults (DC), Chronic Hypertension (DC), Anemia (GEN), Pneumonia (DC) Follow Up With: Aleksandar Strickland DO [Primary Care Provider] - - Diet and Activity Activity: wear oxygen at all times Diet: diabetic diet, low fat, low cholesterol
--- NOTE | 2018-04-17 16:42 | Electrocardiograph Report ---
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
[2018-04-17] MEDS ORDERED: *HR* Warfarin 2.5 MG TABLET PO ONE (18:00)
== END 2018-04-17 16:59 | disposition home or self-care (01) | DRG 308 ==
LOC: 2NENU 13:14 → EMEROOARM 13:14 → SUATTDRO 15:32 → 2NENU 16:05 → SUATTDRO 19:13
PROVIDERS: ADMIT Internal Medicine; ATTEND Hospitalist

== ENCOUNTER 2018-04-22 17:39 | Inpatient (IN) ==
--- NOTE | 2018-04-22 18:38 | Emergency Department Note ---
Disposition Clinical Impression: Atrial fibrillation with RVR, Palpitations, Elevated brain natriuretic peptide (BNP) level Anemia Qualifiers: Anemia type: unspecified type Qualified Code(s): D64.9 - Anemia, unspecified Disposition: Admitted As Inpatient Condition: Good Referrals: Aleksandar Strickland DO [Primary Care Provider] - Forms: ED Satisfaction Letter Time of Disposition: 19:59 General Adult HPI - General Chief complaint: ED Shortness of Breath/Dyspnea Stated complaint: "high HR" Time Seen by Provider: 04/22/18 18:03 Source: patient Mode of arrival: ambulatory Limitations: no limitations Nursing Notes Reviewed: Yes Vital Signs Reviewed: Yes - History of Present Illness HPI Narrative: Patient is a 67-year-old female who presents emergency Department with reports of elevated heart rate. Patient states that she has a history of atrial fibril lation and feels like her heart has been racing. Patient states that her heart rate has been as high as 152 today but is mainly been in the 130s and 140s throughout. Duration of today. Patient states that she was recently admitted to the hospital for A. fib with RVR requiring a diltiazem drip. Patient states that she currently takes sotalol, metoprolol and is anticoagulated with warfarin. Patient states that she has had some intermittent chest pain over the past few days. Patient also reports she has had some shortness of breath and diaphoresis. Patient denies any nausea, vomiting or diarrhea. Patient also states that she does have a history of breast cancer for which she has received chemotherapy and has had mastectomy for. Pain Scale: 8 - Related Data Home Medications Medication Instructions Recorded Confirmed Aspirin 81 mg PO DAILY 11/10/14 04/14/18 Psyllium Husk [Daily Fiber] 2 tab PO DAILY 10/15/15 04/14/18 Omeprazole [PriLOSEC] 20 mg PO DAILY 11/29/15 04/14/18 Calcium Carbonate [Calcium] 500 mg PO DAILY 05/28/17 04/14/18 Fluticasone Furoate [Arnuity 1 puff IH DAILY 05/28/17 04/14/18 Ellipta] Melatonin 5 mg PO HS PRN 05/28/17 04/14/18 Furosemide [Lasix] 40 mg PO DAILY PRN 07/26/17 04/14/18 Albuterol Sulfate [Ventolin Hfa] 2 puff PO Q6H PRN 01/28/18 04/14/18 Warfarin Sodium 2.5 mg PO SUMOTUWETHFRSA 04/14/18 04/14/18 predniSONE [PredniSONE] 10 mg PO DAILY 04/14/18 04/14/18 Previous Rx's Medication Instructions Recorded Metoprolol XL (24 HR) Succ [Toprol 25 mg PO DAILY tab.er.24h 04/17/18 Xl] Sotalol [Betapace] 80 mg PO Q12HR #60 tablet 04/17/18 Allergies Allergy/AdvReac Type Severity Reaction Status Date / Time adhesive tape Allergy Hives Verified 01/28/18 11:45 All systems ED: reviewed and negative except as stated. Cardiovascular: Reports: chest pain, palpitations Respiratory: Reports: dyspnea Gastrointestinal: Denies: abdominal pain, nausea, vomiting Genitourinary: Denies: urgency, dysuria, frequency Musculoskeletal: Denies: back pain Past Medical History - Past Medical History Medical history: Reports: asthma, atrial fibrillation, CHF, diabetes, hyperlipidemia, hypertension, TIA, other Surgical history: Reports: breast surgery, cancer surgery, hysterectomy Psychiatric history: Reports: no psych history GYPSUM CALCINER history: Reports: no GYPSUM CALCINER history - Social History Smoking Status: Never smoker Smokeless Tobacco Status: No Alcohol use: Reports: none Drug use: Reports: none Physical Exam - General Limitations: no limitations General appearance: alert, in no apparent distress - Head Head exam: atraumatic, normocephalic - Eye Eye exam: Present: normal appearance, EOMI - Neck Neck exam: Present: normal inspection, full ROM, trachea midline - Respiratory Respiratory exam: Present: normal lung sounds bilaterally. Absent: respiratory distress, wheezes - Cardiovascular Cardiovascular exam: Present: tachycardia, irregular rhythm, normal heart sounds, +S1, +S2 - Abdominal Exam Abdominal exam: Present: soft, Non-Tender, normal bowel sounds - Neurological Exam Neurological exam: Present: alert, oriented X3 - Psychiatric Psychiatric exam: Present: normal affect, normal mood - Skin Skin exam: Present: warm, dry, intact Course Vital Signs Temperature 98.8 F 04/22/18 17:55 Pulse Rate 138 04/22/18 17:55 Respiratory Rate 24 04/22/18 17:55 Blood Pressure 150/85 04/22/18 17:55 O2 Sat by Pulse Oximetry 91 04/22/18 17:55 Temperature 98.8 F 04/22/18 17:55 Pulse Rate 125 04/22/18 19:31 Respiratory Rate 22 04/22/18 19:31 Blood Pressure 146/102 04/22/18 19:31 O2 Sat by Pulse Oximetry 99 04/22/18 19:31 Oxygen Delivery Oxygen Delivery Nasal Cannula Medical Decision Making - [facility] Narrative Medical decision making narrative: Patient does not emergency department with reports of palpitations and a history of atrial fibrillation with obtained basic laboratory testing including CBC, BMP and chest x-ray and EKG. Troponin was negative. The patient does have elevated BNP. EKG showed an irregular tachyarrhythmia. At rate of 128 bpm. This is likely a multifocal atrial tachycardia versus A. fib with RVR. Patient been started on sotalol when she was admitted last week. We did discuss this case with cardiology. They recommended giving an additional dose of Toprol here in the emergency department and admitting the patient to medicine. Chest x-ray showed some vascular congestion as well as some bibasilar atelectasis. EKG did not show any acute ischemic changes. Patient is on her baseline oxygen here in the emergency department at 2 L. Discussion was had with the admitting hospitalist Dr. Menendez and he has accepted the patient to their service. Patient be admitted to the hospital at this time for further evaluation and management of her tachycardia. - Medical Records Medical records reviewed: Yes I reviewed the patient's medical records. - Lab Data Lab results reviewed: Yes I reviewed the patient's lab results. Result diagrams: 04/22/18 18:11 04/22/18 18:11 Lab Results 04/22/18 04/22/18 04/22/18 Range/Units 18:11 18:11 18:11 WBC 10.6 (4.3-11.1) K/mcL RBC 4.05 (3.82-4.97) M/mcL Hgb 10.7 L (11.5-15.4) g/dL Hct 35.4 (35.3-44.9) % MCV 87.4 (83.0-100.0) fL MCH 26.4 L (28.0-33.3) pg MCHC 30.2 L (31.6-35.5) g/dL RDW 16.1 H (11.5-14.5) % Plt Count 335 (140-400) K/mcL MPV 9.2 L (9.4-12.4) fL Immature Gran % 2.1 (0-4) % Seg Neutrophils % 84.4 % Lymphocytes % 9.4 % Monocytes % 3.7 % Eosinophils % 0.0 % Basophils % 0.4 % Neutrophils # 8.9 (1.6-8.9) K/mcL Lymphocytes # 1.0 (0.6-4.6) K/mcL Monocytes # 0.4 (0.0-1.3) K/mcL Eosinophils # 0.0 (0.0-0.6) K/mcL Basophils # 0.0 (0.0-0.2) K/mcL Nucleated RBCs/100 WBC 0.2 H (0) /100 WBC Sodium 146 H (136-145) mEq/L Potassium 4.0 (3.5-5.1) mEq/L Chloride 108 H (98-107) mEq/L Carbon Dioxide 26 (23-29) mEq/L BUN 26 H (8-23) mg/dL Creatinine 0.81 (0.60-1.20) mg/dL Est GFR ( Amer) > 60 (> 60) Est GFR (Non-Af Amer) > 60 (> 60) BUN/Creatinine Ratio 32 H (6-26) Glucose 179 H (70-105) mg/dL Calculated Osmolality 311 H (280-300) Lactic Acid (0.5-2.2) mmol/L Calcium 9.6 (8.6-10.3) mg/dL Troponin I < 0.03 (< 0.04) ng/mL B-Natriuretic Peptide 364 H (Less than 100) pg/mL 04/22/18 Range/Units 18:33 WBC (4.3-11.1) K/mcL RBC (3.82-4.97) M/mcL Hgb (11.5-15.4) g/dL Hct (35.3-44.9) % MCV (83.0-100.0) fL MCH (28.0-33.3) pg MCHC (31.6-35.5) g/dL RDW (11.5-14.5) % Plt Count (140-400) K/mcL MPV (9.4-12.4) fL Immature Gran % (0-4) % Seg Neutrophils % % Lymphocytes % % Monocytes % % Eosinophils % % Basophils % % Neutrophils # (1.6-8.9) K/mcL Lymphocytes # (0.6-4.6) K/mcL Monocytes # (0.0-1.3) K/mcL Eosinophils # (0.0-0.6) K/mcL Basophils # (0.0-0.2) K/mcL Nucleated RBCs/100 WBC (0) /100 WBC Sodium (136-145) mEq/L Potassium (3.5-5.1) mEq/L Chloride (98-107) mEq/L Carbon Dioxide (23-29) mEq/L BUN (8-23) mg/dL Creatinine (0.60-1.20) mg/dL Est GFR ( Amer) (> 60) Est GFR (Non-Af Amer) (> 60) BUN/Creatinine Ratio (6-26) Glucose (70-105) mg/dL Calculated Osmolality (280-300) Lactic Acid 2.1 (0.5-2.2) mmol/L Calcium (8.6-10.3) mg/dL Troponin I (< 0.04) ng/mL B-Natriuretic Peptide (Less than 100) pg/mL - Radiology Data Radiology results reviewed: Yes I reviewed the patient's radiology results. Chest X-Ray 04/22/18 18:13 IMPRESSION: 1. Increased pulmonary vascular congestion. 2. Low lung volumes with bibasilar atelectasis, slightly increased. D/ / 04/22/2018 18:48:05 Kal Kerr MD / diann Interpreting Provider: Kal Kerr MD - EKG Data EKG #1 EKG attestation: Yes I reviewed and interpreted this EKG. EKG results narrative: EKG showed an irregularly irregular rhythm at a rate of 128 bpm M a T versus A. fib with RVR. Care is duration of 82, QTC of 448. There is no evidence of acute ischemia on EKG.
[2018-04-22 18:56] LABS: Basophils % 0.4 %; Hematocrit 35.4 % (35.3-44.9); Hemoglobin 10.7 g/dL (11.5-15.4); Immature Granulocytes % 2.1 % (0-4); Lymphocytes % 9.4 %; Mean Corpuscular HGB Conc 30.2 g/dL (31.6-35.5); Mean Corpuscular Hemoglobin 26.4 pg (28.0-33.3); Mean Corpuscular Volume 87.4 fL (83.0-100.0); Mean Platelet Volume 9.2 fL (9.4-12.4); Monocytes # 0.4 K/mcL (0.0-1.3); Monocytes % 3.7 %; Neutrophils # 8.9 K/mcL (1.6-8.9); Nucleated Red Blood Cells 0.2 /100 WBC (0); Platelet Count 335 K/mcL (140-400); Red Blood Count 4.05 M/mcL (3.82-4.97); Red Cell Distribution Width 16.1 % (11.5-14.5); Segmented Neutrophils % 84.4 %
[2018-04-22 18:57] LABS: Troponin I < 0.03 ng/mL (< 0.04)
[2018-04-22 19:04] LABS: BUN/Creatinine Ratio 32 (6-26); Blood Urea Nitrogen 26 mg/dL (8-23); Calcium 9.6 mg/dL (8.6-10.3); Carbon Dioxide 26 mEq/L (23-29); Chloride 108 mEq/L (98-107); Glucose 179 mg/dL (70-105); Osmolality,Calculated 311 (280-300); Sodium 146 mEq/L (136-145); eGFR For Non-African Americans > 60 (> 60)
[2018-04-22] MEDS: Metoprolol XL (24 HR) Succ 25 MG TAB.ER.24H PO SCH (19:39)
--- NOTE | 2018-04-22 19:46 | Emergency Department Note ---
Disposition Clinical Impression: Atrial fibrillation with RVR, Palpitations Disposition: Admitted As Inpatient Forms: ED Satisfaction Letter General Adult HPI - General Chief complaint: ED Shortness of Breath/Dyspnea Stated complaint: "high HR" Time Seen by Provider: 04/22/18 18:03 Source: patient Mode of arrival: ambulatory Limitations: no limitations - History of Present Illness Pain Scale: 8 - Related Data Home Medications Medication Instructions Recorded Confirmed Aspirin 81 mg PO DAILY 11/10/14 04/14/18 Psyllium Husk [Daily Fiber] 2 tab PO DAILY 10/15/15 04/14/18 Omeprazole [PriLOSEC] 20 mg PO DAILY 11/29/15 04/14/18 Calcium Carbonate [Calcium] 500 mg PO DAILY 05/28/17 04/14/18 Fluticasone Furoate [Arnuity 1 puff IH DAILY 05/28/17 04/14/18 Ellipta] Melatonin 5 mg PO HS PRN 05/28/17 04/14/18 Furosemide [Lasix] 40 mg PO DAILY PRN 07/26/17 04/14/18 Albuterol Sulfate [Ventolin Hfa] 2 puff PO Q6H PRN 01/28/18 04/14/18 Acetaminophen [Tylenol] 500 mg PO DAILY PRN 04/14/18 04/14/18 Acetaminophen/Chlorpheniramine 1 tab PO Q6H PRN 04/14/18 04/14/18 [Coricidin Hbp Cold & Flu Tab] DiphenhydraMINE [Benadryl] 25 mg PO HS PRN 04/14/18 04/14/18 Warfarin Sodium 2.5 mg PO SUMOTUWETHFRSA 04/14/18 04/14/18 predniSONE [PredniSONE] 10 mg PO DAILY 04/14/18 04/14/18 Previous Rx's Medication Instructions Recorded Metoprolol XL (24 HR) Succ [Toprol 25 mg PO DAILY tab.er.24h 04/17/18 Xl] Sotalol [Betapace] 80 mg PO Q12HR #60 tablet 04/17/18 Allergies Allergy/AdvReac Type Severity Reaction Status Date / Time adhesive tape Allergy Hives Verified 01/28/18 11:45 Past Medical History - Past Medical History Medical history: Reports: asthma, atrial fibrillation, CHF, diabetes, hyperlipidemia, hypertension, TIA, other Surgical history: Reports: breast surgery, cancer surgery, hysterectomy Psychiatric history: Reports: no psych history ANIMAL GROOMER history: Reports: no ANIMAL GROOMER history - Social History Smoking Status: Never smoker Smokeless Tobacco Status: No Alcohol use: Reports: none Drug use: Reports: none Physical Exam - General Limitations: no limitations General appearance: alert, in no apparent distress Course Vital Signs Temperature 98.8 F 04/22/18 17:55 Pulse Rate 138 04/22/18 17:55 Respiratory Rate 24 04/22/18 17:55 Blood Pressure 150/85 04/22/18 17:55 O2 Sat by Pulse Oximetry 91 04/22/18 17:55 Temperature 98.8 F 04/22/18 17:55 Pulse Rate 125 04/22/18 19:31 Respiratory Rate 22 04/22/18 19:31 Blood Pressure 146/102 04/22/18 19:31 O2 Sat by Pulse Oximetry 99 04/22/18 19:31 Oxygen Delivery Oxygen Delivery Nasal Cannula Medical Decision Making - Medical Records Medical records reviewed: Yes I reviewed the patient's medical records. - Lab Data Lab results reviewed: Yes I reviewed the patient's lab results. Result diagrams: 04/22/18 18:11 04/22/18 18:11 Lab Results 04/22/18 04/22/18 04/22/18 Range/Units 18:11 18:11 18:11 WBC 10.6 (4.3-11.1) K/mcL RBC 4.05 (3.82-4.97) M/mcL Hgb 10.7 L (11.5-15.4) g/dL Hct 35.4 (35.3-44.9) % MCV 87.4 (83.0-100.0) fL MCH 26.4 L (28.0-33.3) pg MCHC 30.2 L (31.6-35.5) g/dL RDW 16.1 H (11.5-14.5) % Plt Count 335 (140-400) K/mcL MPV 9.2 L (9.4-12.4) fL Immature Gran % 2.1 (0-4) % Seg Neutrophils % 84.4 % Lymphocytes % 9.4 % Monocytes % 3.7 % Eosinophils % 0.0 % Basophils % 0.4 % Neutrophils # 8.9 (1.6-8.9) K/mcL Lymphocytes # 1.0 (0.6-4.6) K/mcL Monocytes # 0.4 (0.0-1.3) K/mcL Eosinophils # 0.0 (0.0-0.6) K/mcL Basophils # 0.0 (0.0-0.2) K/mcL Nucleated RBCs/100 WBC 0.2 H (0) /100 WBC Sodium 146 H (136-145) mEq/L Potassium 4.0 (3.5-5.1) mEq/L Chloride 108 H (98-107) mEq/L Carbon Dioxide 26 (23-29) mEq/L BUN 26 H (8-23) mg/dL Creatinine 0.81 (0.60-1.20) mg/dL Est GFR ( Amer) > 60 (> 60) Est GFR (Non-Af Amer) > 60 (> 60) BUN/Creatinine Ratio 32 H (6-26) Glucose 179 H (70-105) mg/dL Calculated Osmolality 311 H (280-300) Lactic Acid (0.5-2.2) mmol/L Calcium 9.6 (8.6-10.3) mg/dL Troponin I < 0.03 (< 0.04) ng/mL B-Natriuretic Peptide 364 H (Less than 100) pg/mL 04/22/18 Range/Units 18:33 WBC (4.3-11.1) K/mcL RBC (3.82-4.97) M/mcL Hgb (11.5-15.4) g/dL Hct (35.3-44.9) % MCV (83.0-100.0) fL MCH (28.0-33.3) pg MCHC (31.6-35.5) g/dL RDW (11.5-14.5) % Plt Count (140-400) K/mcL MPV (9.4-12.4) fL Immature Gran % (0-4) % Seg Neutrophils % % Lymphocytes % % Monocytes % % Eosinophils % % Basophils % % Neutrophils # (1.6-8.9) K/mcL Lymphocytes # (0.6-4.6) K/mcL Monocytes # (0.0-1.3) K/mcL Eosinophils # (0.0-0.6) K/mcL Basophils # (0.0-0.2) K/mcL Nucleated RBCs/100 WBC (0) /100 WBC Sodium (136-145) mEq/L Potassium (3.5-5.1) mEq/L Chloride (98-107) mEq/L Carbon Dioxide (23-29) mEq/L BUN (8-23) mg/dL Creatinine (0.60-1.20) mg/dL Est GFR ( Amer) (> 60) Est GFR (Non-Af Amer) (> 60) BUN/Creatinine Ratio (6-26) Glucose (70-105) mg/dL Calculated Osmolality (280-300) Lactic Acid 2.1 (0.5-2.2) mmol/L Calcium (8.6-10.3) mg/dL Troponin I (< 0.04) ng/mL B-Natriuretic Peptide (Less than 100) pg/mL - Radiology Data Radiology results reviewed: Yes I reviewed the patient's radiology results. Critical Care Time Critical Care Time: No Attestation Statement - Attestation Attestation: I examined this patient and my medical decision-making was reviewed with the Resident Physician. I agree with the documented findings, disposition and treatment plan as described except to the extent set forth below. 67-year-old female presents emergency room for palpitations. Patient found to be in A. fib with RVR versus a multifocal atrial tachycardia. Patient was admitted last week to cardiology. She has a history of A. fib with RVR. Cardiology started her on sotalol 80 mg twice a day. She was discharged. She was fine up until yesterday started developing palpitations. She is on Coumadin. Patient found to be back in A. fib with RVR. I consulted with cardiology. Recommended giving an extra dose of Toprol 25 mg orally. Patient will be admitted due to her symptoms. Case was discussed with the hospitalist as well as the lone lead lineman. Her troponin was normal. Her EKG did not show ischemia. Chest x-ray was concerning for some vascular congestion.
[2018-04-22 20:03] LABS: INR 2.7; Prothrombin Time 30.9 Seconds (9.4-12.1)
[2018-04-22] MEDS ORDERED: Naloxone 0.4 MG/ML INJ IVP PRN (21:02)
[2018-04-22] MEDS ORDERED: *HR* Warfarin 5 MG TABLET PO SCH (21:15)
[2018-04-23] MEDS ORDERED: Furosemide 40 MG/4 ML VIAL IVP ONE (01:55)
[2018-04-23] MEDS ORDERED: Melatonin 3 MG TABLET PO PRN (01:55)
[2018-04-23] MEDS ORDERED: Furosemide 40 MG TABLET PO PRN (01:55)
--- NOTE | 2018-04-23 01:57 | Internal Med History&Physical ---
Date of Encounter: 04/23/18 Time of Encounter: 01:57 Internal Medicine - H&P: HPI Chief complaint: Palpitations History of present illness: Ms. Merida is a 67 year old female with a past medical history of atrial fibrillation on warfarin, heart failure with preserved ejection fraction, diabetes type 2, hyperlipidemia, hypertension who presented to the ED because of palpitations. Patient was recently discharged on the after admission for CHF exacerbation as well as atrial fibrillation with rapid ventricular response. She is currently on 25 mg of long-acting metoprolol as well as 80 mg of sotalol twice a day and has not missed a dose. Patient reports doing well up until symptoms started up again Sunday night. Symptoms are associated with shortness of breath and intermittent chest pain. Patient notes increasing shortness of breath with exertion despite being on 2 L at all times. She states that when she left the hospital during her last admission, she was able to cut down her oxygen to 1 L and was doing fine up until Sunday, and since then has had to increase it to 2 L. Patient is currently on 40 mg of Lasix daily. She did report having pizza on Sunday night. She also did not take her Lasix on Sunday. Patient denies any recent illness, lower extremity edema, orthopnea or paroxysmal nocturnal dyspnea. On arrival patient was found to be in atrial fibrillation with a heart rate in the 120s to 130s. Patient otherwise hemodynamically stable without any complaints of chest pain. Lab work was relatively unremarkable aside from a low hemoglobin which appears to be chronic and a mildly elevated BNP of 364. We will adjust was consulted and recommended given patient an additional dose of metoprolol XL 25 mg. Past Med Surg Social Fam HX - Past Medical History Medical history: asthma, atrial fibrillation, CHF, diabetes, hyperlipidemia, hypertension, TIA, other Additional medical history: breast cancer Psychiatric history: no psych history - Past Surgical History Surgical History: breast surgery, cancer surgery, hysterectomy Additional surgical history: cardiac ablation, L mastectomy, LOOP recorder - Social History Smoking Status: Never smoker Smokeless Tobacco Status: No Alcohol use: none Drug use: none - Family History Father Family Member Ethnicity: Non- Living Status: Hx Family Cardiac Disorders: Yes (hypertension) Hx Family Respiratory Disorders: No Hx Family Cancer: No Hx Family GI Disorders: No Hx Family Endocrine Disorder: Yes (diabetes) Hx Family Neuromuscular Disorders: No Hx Family Neurologic Disorders: No Hx Family HEENT Disorders: No Hx Family Autoimmune Disorders: No Mother Adopted: No Family Member Ethnicity: Non- Living Status: Still Living Hx Family Cardiac Disorders: Yes (Afib) Hx Family Respiratory Disorders: No Hx Family Cancer: Yes (Colon) Hx Family GI Disorders: Yes (Cancer) Hx Family Endocrine Disorder: Yes Hx Family Neuromuscular Disorders: Yes (Stroke 2016) Hx Family Neurologic Disorders: No Hx Family HEENT Disorders: No Hx Family Autoimmune Disorders: No Internal Medicine - H&P: Meds Aspirin 81 mg PO DAILY 11/10/14 [History] Psyllium Husk [Daily Fiber] 2 tab PO DAILY 10/15/15 [History] Omeprazole [PriLOSEC] 20 mg PO DAILY 11/29/15 [History] Calcium Carbonate [Calcium] 500 mg PO DAILY 05/28/17 [History] Fluticasone Furoate [Arnuity Ellipta] 1 puff IH DAILY 05/28/17 [History] Melatonin 5 mg PO HS PRN 05/28/17 [History] Furosemide [Lasix] 40 mg PO DAILY PRN 07/26/17 [History] Albuterol Sulfate [Ventolin Hfa] 2 puff PO Q6H PRN 01/28/18 [History] Warfarin Sodium 2.5 mg PO DAILY@199904/14/18 [History] predniSONE [PredniSONE] 10 mg PO DAILY 04/14/18 [History] Metoprolol XL (24 HR) Succ [Toprol Xl] 25 mg PO DAILY tab.er.24h 04/17/18 [Rx] Sotalol [Betapace] 80 mg PO Q12HR #60 tablet 04/17/18 [Rx] Allergy/AdvReac Type Severity Reaction Status Date / Time adhesive tape Allergy Hives Verified 01/28/18 11:45 All Systems PM: A 10-system review of systems was performed and is negative for pertinent findings except as documented above in the HPI. - Constitutional Constitutional: no chills, no fever(s), no night sweats - EENT Eyes: no change in vision, no discharge, no pain, no photophobia Ears: no ear discharge, no ear pain, no tinnitus Nose, mouth and throat: no dysphagia, no nasal discharge, no neck pain, no sore throat - Cardiovascular Cardiovascular ROS IM: no chest pain, no diaphoresis, no dyspnea, no lightheadedness, no palpitations, no syncope - Respiratory Respiratory: no cough, no dyspnea, no wheezing, no excessive phlegm production - Gastrointestinal Gastrointestinal: no abdominal pain, no diarrhea, no hematemesis, no hematochezia, no melena, no nausea, no vomiting - Genitourinary Genitourinary: no change in urinary stream, no dysuria, no flank pain, no hematuria - Musculoskeletal Musculoskeletal ROS IM: no numbness, no tingling - Integumentary Integumentary IM: no rash, no unusual bruising - Neurological Neurological ROS: no confusion, no convulsions, no focal weakness, no numbness, no tingling, no tremor(s) - Hematologic/Lymphatic Hematologic/Lymphatic: no easy bruising - Constitutional Vitals: Temp Pulse Resp BP Pulse Ox 97.5 F L 136 17 161/106 94 04/22/18 23:01 04/22/18 23:01 04/22/18 23:01 04/22/18 23:01 04/22/18 23:01 Exam: General: Alert and oriented 3 lying in bed in no acute distress Skin:Normal color, no rash, no lesions. HEENT:EOM, pupils equal, round and reactive. Cardiovascular:Normal S1 & S2, irregularly irregular rhythm; no rubs, murmurs or gallops. No JVD. Pulse regular. Lungs:Normal breath sounds, no wheezes or crackles. Abdomen:Soft, non-tender, no rigidity. Extremities:No deformity, trace lower extremity edema Neurological:Normal cognition and motor skills. Pulses:Carotid and radial pulses normal +2. Rest of the physical exam is non contributory Internal Med - H&P Results - Labs CBC & Chem 7: 04/22/18 18:11 04/22/18 18:11 Labs: Short CBC 04/22/18 Range/Units 18:11 WBC 10.6 (4.3-11.1) K/mcL Hgb 10.7 L (11.5-15.4) g/dL Hct 35.4 (35.3-44.9) % Plt Count 335 (140-400) K/mcL Neutrophils # 8.9 (1.6-8.9) K/mcL BMP 04/22/18 18:11 Sodium 146 H Potassium 4.0 Chloride 108 H Carbon Dioxide 26 BUN 26 H Creatinine 0.81 Glucose 179 H Calcium 9.6 Cardiac Enzymes 04/22/18 Range/Units 18:11 Troponin I < 0.03 (< 0.04) ng/mL - Impressions ITS Impressions Chest X-Ray 04/22/18 18:13 IMPRESSION: 1. Increased pulmonary vascular congestion. 2. Low lung volumes with bibasilar atelectasis, slightly increased. D/ / 04/22/2018 18:48:05 Kal Kerr MD / diann Interpreting Provider: Kal Kerr MD - Assessment and plan (1) Atrial fibrillation with RVR Current Visit: Yes Status: Acute Assessment and plan: Afib with RVR 120's -130's upon arrival. Longstanding hx of PAF s/p cryoablation and has failed multiple antiarrhythmics in the past. Recently started on sotalol therapy for symptomatic PAF by Dr.John Ness, 04/14/18 and sotalol 80 mg Q12H started. Patient reports being compliant with her medications. Patient does have evidence of pulmonary vascular congestion on imaging, though at this time it is unclear if the A. fib precipitated pulmonary edema or vice versa. Troponin and EKG otherwise unremarkable. Cardiology was consulted and recommended giving patient an additional dose of metoprolol XL 25 mg. Heart rate continues to be irregularly irregular in the 120s. Patient has not taken her evening dose of sotalol as of yet. Currently asymptomatic and hemodynamically stable. -Telemetry -We will give patient evening dose of sotalol and readjust dosing schedule with pharmacy -Will treat for possible mild CHF exacerbation. -Appreciate cardiology recommendations -Continue with warfarin. INR currently therapeutic (2) (HFpEF) heart failure with preserved ejection fraction Current Visit: No Status: Acute Assessment and plan: Patient reports increasing oxygen acquired minutes with worsening dyspnea on exertion despite being on 2 L nasal cannula. Denies any worsening lower extremity edema, orthopnea or paroxysmal nocturnal dyspnea but does report some dietary indiscretion and missed her dose of Lasix on Sunday. Her BNP is mildly elevated relative to previous assessments. Chest x-ray shows increased pulmonary vascular congestion At this time it is unclear if her atrial fibrillation precipitated her pulmonary vascular congestion or vice versa. Patient's last echo was in December of last year which showed a EF of 60-65% with mild concentric left ventricular hypertrophy and moderate left ventricular diastolic dysfunction; moderate pulmonary hypertension. -We will give patient 1 time dose of Lasix 40 mg IV push -Resume home dose of Lasix -Daily weights, strict I's and O's -Consider echocardiogram. Qualifiers: Heart failure chronicity: acute on chronic Qualified Code(s): I50.33 - Acute on chronic diastolic (congestive) heart failure (3) Anemia Current Visit: Yes Status: Chronic Assessment and plan: Anemia. Appears to be chronic. We will monitor. Qualifiers: Anemia type: unspecified type Qualified Code(s): D64.9 - Anemia, unspecified (4) Chronic respiratory failure Current Visit: No Status: Acute Assessment and plan: Patient chronically on 2 L nasal cannula. Currently stable. -Continue O2 support Qualifiers: Respiratory failure complication: unspecified whether with hypoxia or hypercapnia Qualified Code(s): J96.10 - Chronic respiratory failure, unspecified whether with hypoxia or hypercapnia (5) DVT prophylaxis Current Visit: No Status: Acute Assessment and plan: Continue with warfarin - Time Spent With Patient Total time spent is greater than 50% in coordination of care (as documented) at patient's floor/unit and/or counseling patient:
[2018-04-23] MEDS: Acetaminophen 325 MG TABLET PO PRN ×2 (03:12→21:57)
[2018-04-23 03:56] LABS: Basophils % 0.3 %; Eosinophils # 0.1 K/mcL (0.0-0.6); Eosinophils % 0.4 %; Hematocrit 32.9 % (35.3-44.9); Hemoglobin 9.8 g/dL (11.5-15.4); Immature Granulocytes % 1.3 % (0-4); Lymphocytes # 1.5 K/mcL (0.6-4.6); Lymphocytes % 12.5 %; Mean Corpuscular HGB Conc 29.8 g/dL (31.6-35.5); Mean Corpuscular Hemoglobin 26.2 pg (28.0-33.3); Mean Platelet Volume 9.1 fL (9.4-12.4); Monocytes # 0.6 K/mcL (0.0-1.3); Monocytes % 5.3 %; Neutrophils # 9.5 K/mcL (1.6-8.9); Platelet Count 297 K/mcL (140-400); Red Blood Count 3.74 M/mcL (3.82-4.97); Red Cell Distribution Width 16.1 % (11.5-14.5); Segmented Neutrophils % 80.2 %
[2018-04-23 04:03] LABS: INR 2.9; Prothrombin Time 32.7 Seconds (9.4-12.1)
[2018-04-23 04:18] LABS: Alanine Aminotransferase 19 Units/L (7-52); Albumin 3.3 g/dL (3.5-5.7); Albumin/Globulin Ratio 1.2 (1.1-2.2); Alkaline Phosphatase 61 Units/L (34-104); Aspartate Amino Transferase 11 Units/L (13-39); BUN/Creatinine Ratio 40 (6-26); Bilirubin,Total 0.3 mg/dL (0.3-1.0); Blood Urea Nitrogen 25 mg/dL (8-23); Calcium 8.7 mg/dL (8.6-10.3); Carbon Dioxide 27 mEq/L (23-29); Chloride 107 mEq/L (98-107); Globulin 2.7 g/dL (2.4-3.5); Glucose 142 mg/dL (70-105); Osmolality,Calculated 305 (280-300); Potassium 3.4 mEq/L (3.5-5.1); Sodium 144 mEq/L (136-145); eGFR For Non-African Americans > 60 (> 60)
[2018-04-23 04:19] LABS: Troponin I < 0.03 ng/mL (< 0.04)
--- NOTE | 2018-04-23 07:59 | Internal Med Progress Note ---
Hospitalist Progress Note - Encounter Date of Encounter: 04/23/18 - Subjective Interval History: Patient presented due palpitations in addition to shortness of breath found to be in atrial fibrillation with RVR and acute on chronic heart failure - Exam Vitals: Temp Pulse Resp BP Pulse Ox 97.6 F 92 18 138/85 99 04/23/18 07:02 04/23/18 07:02 04/23/18 07:02 04/23/18 07:02 04/23/18 07:02 - Assessment and Plan (1) Atrial fibrillation with RVR Current Visit: Yes Status: Acute (2) Anemia Current Visit: Yes Status: Chronic (3) (HFpEF) heart failure with preserved ejection fraction Current Visit: No Status: Acute (4) Chronic respiratory failure Current Visit: No Status: Acute (5) DVT prophylaxis Current Visit: No Status: Acute - Time Spent with Patient Total time spent is greater than 50% in coordination of care (as documented) at patient's floor/unit and/or counseling patient: Internal Medicine: Result - Labs CBC & Chem 7: 04/23/18 03:36 04/23/18 03:36 Labs: Short CBC 04/22/18 04/23/18 Range/Units 18:11 03:36 WBC 10.6 11.9 H (4.3-11.1) K/mcL Hgb 10.7 L 9.8 L (11.5-15.4) g/dL Hct 35.4 32.9 L (35.3-44.9) % Plt Count 335 297 (140-400) K/mcL Neutrophils # 8.9 9.5 H (1.6-8.9) K/mcL BMP 04/22/18 04/23/18 18:11 03:36 Sodium 146 H 144 Potassium 4.0 3.4 L Chloride 108 H 107 Carbon Dioxide 26 27 BUN 26 H 25 H Creatinine 0.81 0.62 Glucose 179 H 142 H Calcium 9.6 8.7 Cardiac Enzymes 04/22/18 04/23/18 Range/Units 18:11 03:36 Troponin I < 0.03 < 0.03 (< 0.04) ng/mL Liver Function 04/23/18 Range/Units 03:36 Total Bilirubin 0.3 (0.3-1.0) mg/dL AST 11 L (13-39) Units/L ALT 19 (7-52) Units/L Alkaline Phosphatase 61 (34-104) Units/L Albumin 3.3 L (3.5-5.7) g/dL - ABG Interpretation ABG results: PT/INR, D-dimer PT 32.7 Seconds (9.4-12.1) H 04/23/18 03:36 - Impressions Impressions Chest X-Ray 04/22/18 18:13 IMPRESSION: 1. Increased pulmonary vascular congestion. 2. Low lung volumes with bibasilar atelectasis, slightly increased. D/ / 04/22/2018 18:48:05 Kal Kerr MD / diann Interpreting Provider: Kal Kerr MD Consult Discharge Plan - Plan Referrals: Aleksandar Strickland DO [Primary Care Provider] - (2) Anemia Qualifiers: Anemia type: unspecified type Qualified Code(s): D64.9 - Anemia, unspecified (3) (HFpEF) heart failure with preserved ejection fraction Qualifiers: Heart failure chronicity: acute on chronic Qualified Code(s): I50.33 - Acute on chronic diastolic (congestive) heart failure (4) Chronic respiratory failure Qualifiers: Respiratory failure complication: unspecified whether with hypoxia or hypercapnia Qualified Code(s): J96.10 - Chronic respiratory failure, unspecified whether with hypoxia or hypercapnia
--- NOTE | 2018-04-23 08:06 | Event Note ---
Date of Encounter: 04/23/18 Time of Encounter: 11:00 Patient seen and evaluated by nocturnalist earlier this morning and also by m yself. Briefly patient is a 67-year-old female who presented due to palpitations and shortness of breath and found to be in atrial fibrillation with RVR. Patient was given a one-time dose of IV Lasix due to concerns for acute on chronic heart failure with preserved ejection fraction. Patient on baseline O2 for chronic hypoxic respiratory failure Cardiology consulted and appreciate recommendations
[2018-04-23] MEDS ORDERED: (Fluticasone Furoate [Arnuity Ellipta] 1 PUFF) IH SCH (09:00)
[2018-04-23] MEDS ORDERED: Metoprolol XL (24 HR) Succ 25 MG TAB.ER.24H PO SCH (09:00)
[2018-04-23] MEDS: predniSONE 10 MG TABLET PO SCH (09:01)
[2018-04-23] MEDS: Metoprolol XL (24 HR) Succ 25 MG TAB.ER.24H PO SCH (09:01)
[2018-04-23] MEDS: Aspirin 81 MG TAB.CHEW PO SCH (09:01)
--- NOTE | 2018-04-23 10:26 | Cardiology Consult Note ---
<Minesh Wyatt - Last Filed: 04/23/18 11:01> Date of Encounter: 04/23/18 Time of Encounter: 10:26 Assessment and Plan (1) Atrial fibrillation with RVR Current Visit: Yes Status: Acute Per cardiology: Presented with dyspnea and palpitations. Afib with RVR 120-130's upon arrival. Longstanding hx of PAF s/p cryoablation and has failed multiple antiarrhythmics in the past--Rythmol, amiodarone. K 3.4--replace. Mag WNL. Seen and evaluated by Dr.John Ness on 04/14/18 and started sotalol 80 mg Q12H. Current QT/QTc 307/448ms. Also on Toprol XL 25mg daily. Appears A-Flutter RVR on telemetry. Continue coumadin for AC, goal INR 2-3. Pharmacy to dose as inpt. INR 2.9. Of note, subtherapeutic on 04/04/18--1.8; if would need DCCV, will need MIKEY prior. Discussed and reviewed with Dr. Neri. Will give cardizem bolus and start gtt. EP consult for further recs and possibly increasing Sotalol dose. (2) (HFpEF) heart failure with preserved ejection fraction Current Visit: No Status: Acute BNP 364. CXR Increased pulmonary vascular congestion. Low lung volumes with bibasilar atelectasis, slightly increased. Received 1 time dose of IV lasix 40mg on admission. Known chronic diastolic CHF. Admits to eating pizza this past weekend and missing a Lasix dose. Currently on PO Lasix 40mg daily PRN. Will switch to scheduled. Recommend 2L and Na fluid restriction, daily weights, I/Os. Qualifiers: Heart failure chronicity: acute on chronic Qualified Code(s): I50.33 - Acute on chronic diastolic (congestive) heart failure Discussion w patient/family: The assessment and plan as outlined above was discussed with the patient and/or family members who expressed understanding and agreement. All questions were answered. Thank you for involving us in the care of your patient. Please call with any questions. I will discuss all the above with Dr. Neri and make changes as necessary. History of Present Illness Consult date: 04/23/18 Consult reason: A-Flutter RVR Chief complaint: dyspnea, palpitations History of present illness: Ms. Merida is a 67 year old female with PMHx significant of PAF s/p cryoablation in June 2017, HTN, diastolic CHF, and TIA who presented to the ED with worsening shortness of breath and palpitations. Patient was recently discharged on the after admission for CHF exacerbation as well as atrial fibrillation with RVR, currently on 25 mg Toprol XL and 80 mg of sotalol BID, has not missed a dose. Symptoms started Sunday night. She has had to increase it to 2 L. On arrival patient was found to be in atrial fibrillation with a he art rate in the 120s to 130s. She has a longstanding hx of PAF and has failed multiple antiarrhythmics, she underwent Cryo ablation in June 2017, s/p DCCV 07/26/17. Loop recorder implanted 12/2017 d/t concern of bradycardia and palpitations, loop interrogation 01/13/18 was without events. She is on Sotalol 80mg BID and anticoagulated on Coumadin. Recent CV testing: TTE 12/30/17: LVEF 60-65%, mild cLVH, moderate LVDD, mild-moderate TR, moderate PH, normall wall motion Loop implant 12/12/17 DCCV 07/26/17: successful conversion to NSR [facility] 10/18/15: minimal, non-obstructive CAD Past Med Surg Social Fam HX - Past Medical History Medical history: asthma, atrial fibrillation, CHF, diabetes, hyperlipidemia, hypertension, TIA, other Additional medical history: breast cancer Psychiatric history: no psych history - Past Surgical History Surgical History: breast surgery, cancer surgery, hysterectomy Additional surgical history: cardiac ablation, L mastectomy, LOOP recorder - Social History Smoking Status: Never smoker Smokeless Tobacco Status: No Alcohol use: none Drug use: none - Family History Father Family Member Ethnicity: Non- Living Status: Hx Family Cardiac Disorders: Yes (hypertension) Hx Family Respiratory Disorders: No Hx Family Cancer: No Hx Family GI Disorders: No Hx Family Endocrine Disorder: Yes (diabetes) Hx Family Neuromuscular Disorders: No Hx Family Neurologic Disorders: No Hx Family HEENT Disorders: No Hx Family Autoimmune Disorders: No Mother Adopted: No Family Member Ethnicity: Non- Living Status: Still Living Hx Family Cardiac Disorders: Yes (Afib) Hx Family Respiratory Disorders: No Hx Family Cancer: Yes (Colon) Hx Family GI Disorders: Yes (Cancer) Hx Family Endocrine Disorder: Yes Hx Family Neuromuscular Disorders: Yes (Stroke 2016) Hx Family Neurologic Disorders: No Hx Family HEENT Disorders: No Hx Family Autoimmune Disorders: No Medications and Allergies Aspirin 81 mg PO DAILY 11/10/14 [History] Psyllium Husk [Daily Fiber] 2 tab PO DAILY 10/15/15 [History] Omeprazole [PriLOSEC] 20 mg PO DAILY 11/29/15 [History] Calcium Carbonate [Calcium] 500 mg PO DAILY 05/28/17 [History] Fluticasone Furoate [Arnuity Ellipta] 1 puff IH DAILY 05/28/17 [History] Melatonin 5 mg PO HS PRN 05/28/17 [History] Furosemide [Lasix] 40 mg PO DAILY PRN 07/26/17 [History] Albuterol Sulfate [Ventolin Hfa] 2 puff PO Q6H PRN 01/28/18 [History] Warfarin Sodium 2.5 mg PO DAILY@199904/14/18 [History] predniSONE [PredniSONE] 10 mg PO DAILY 04/14/18 [History] Metoprolol XL (24 HR) Succ [Toprol Xl] 25 mg PO DAILY tab.er.24h 04/17/18 [Rx] Sotalol [Betapace] 80 mg PO Q12HR #60 tablet 04/17/18 [Rx] Allergy/AdvReac Type Severity Reaction Status Date / Time adhesive tape Allergy Hives Verified 01/28/18 11:45 All Systems Review: The remainder of the systems were reviewed and are negative - Cardiovascular Cardiovascular: as per HPI, chest pain at rest, dyspnea at rest, dyspnea on exertion, palpitations - Respiratory Respiratory: dyspnea Physical Examination Vital Signs, Last 4 Hours Temp Pulse Resp BP Pulse Ox 04/23/18 07:02 97.6 F 92 18 138/85 99 Vital Signs Temp Pulse Resp BP Pulse Ox 04/23/18 07:02 97.6 F 92 18 138/85 99 04/23/18 05:32 130 127/77 04/23/18 03:40 97.9 F 142 16 146/103 99 04/22/18 23:01 97.5 F L 136 17 161/106 94 04/22/18 22:25 20 145/97 04/22/18 22:01 68 14 108/61 98 04/22/18 19:31 125 22 146/102 99 04/22/18 18:19 99 04/22/18 18:16 125 22 155/103 99 04/22/18 18:06 98 04/22/18 17:55 98.8 F 138 24 150/85 91 Intake and Output 04/22/18 04/23/18 04/23/18 23:59 07:59 15:59 Other: # Voids 1 1 Weight 109.5 kg General: Conversant, No Apparent Distress HEENT: Atraumatic, Normocephaly, Mucus Membranes Moist Neck: No JVD, Normal carotid pulses Cardiac: Other (irregular) Lungs: Other (diminished) Neuro: Alert and responsive, No focal deficits noted Abdomen: Soft, Non-Tender Skin: No rashes noted on visualized skin Musculoskeletal: No Chest Wall Tenderness Extremities: Other (mild BLE edema) Results 04/23/18 03:36 04/23/18 03:36 Lab Results 04/22/18 04/22/18 04/22/18 18:11 18:11 18:11 WBC 10.6 Hgb 10.7 L Hct 35.4 Plt Count 335 INR Sodium 146 H Potassium 4.0 Chloride 108 H Carbon Dioxide 26 BUN 26 H Creatinine 0.81 Glucose 179 H Calcium 9.6 Magnesium Total Bilirubin AST ALT Alkaline Phosphatase Troponin I < 0.03 B-Natriuretic Peptide 364 H 04/22/18 04/23/18 04/23/18 19:47 03:36 03:36 WBC 11.9 H Hgb 9.8 L Hct 32.9 L Plt Count 297 INR 2.7 Sodium 144 Potassium 3.4 L Chloride 107 Carbon Dioxide 27 BUN 25 H Creatinine 0.62 Glucose 142 H Calcium 8.7 Magnesium 2.0 Total Bilirubin 0.3 AST 11 L ALT 19 Alkaline Phosphatase 61 Troponin I < 0.03 B-Natriuretic Peptide 04/23/18 03:36 WBC Hgb Hct Plt Count INR 2.9 Sodium Potassium Chloride Carbon Dioxide BUN Creatinine Glucose Calcium Magnesium Total Bilirubin AST ALT Alkaline Phosphatase Troponin I B-Natriuretic Peptide Short CBC 04/23/18 04/22/18 Range/Units 03:36 18:11 WBC 11.9 H 10.6 (4.3-11.1) K/mcL Hgb 9.8 L 10.7 L (11.5-15.4) g/dL Hct 32.9 L 35.4 (35.3-44.9) % Plt Count 297 335 (140-400) K/mcL Neutrophils # 9.5 H 8.9 (1.6-8.9) K/mcL BMP 04/23/18 04/22/18 Range/Units 03:36 18:11 Sodium 144 146 H (136-145) mEq/L Potassium 3.4 L 4.0 (3.5-5.1) mEq/L Chloride 107 108 H (98-107) mEq/L Carbon Dioxide 27 26 (23-29) mEq/L BUN 25 H 26 H (8-23) mg/dL Creatinine 0.62 0.81 (0.60-1.20) mg/dL Glucose 142 H 179 H (70-105) mg/dL Calcium 8.7 9.6 (8.6-10.3) mg/dL Cardiac Enzymes 04/23/18 04/22/18 Range/Units 03:36 18:11 Troponin I < 0.03 < 0.03 (< 0.04) ng/mL Liver Function 04/23/18 Range/Units 03:36 Total Bilirubin 0.3 (0.3-1.0) mg/dL AST 11 L (13-39) Units/L ALT 19 (7-52) Units/L Alkaline Phosphatase 61 (34-104) Units/L Albumin 3.3 L (3.5-5.7) g/dL Impressions Chest X-Ray 04/22/18 18:13 IMPRESSION: 1. Increased pulmonary vascular congestion. 2. Low lung volumes with bibasilar atelectasis, slightly increased. D/ / 04/22/2018 18:48:05 Kal Kerr MD / diann Interpreting Provider: Kal Kerr MD Active Medications Acetaminophen (Tylenol) 650 mg PO Q6H PRN PRN Reason: Fever Stop: 10/23/18 02:58 Last Admin: 04/23/18 03:12 Dose: 650 mg Aspirin (Aspirin) 81 mg PO DAILY [facility] Stop: 10/23/18 09:01 Last Admin: 04/23/18 09:01 Dose: 81 mg Calcium Carbonate (Tums) 500 mg PO DAILY [facility] Stop: 10/23/18 09:01 Last Admin: 04/23/18 09:01 Dose: 500 mg Furosemide (Lasix) 40 mg PO DAILY PRN PRN Reason: edema Stop: 10/23/18 01:56 Melatonin (Melatonin) 6 mg PO HS PRN PRN Reason: Sleep Metoprolol Succinate (Toprol Xl) 25 mg PO DAILY [facility] Stop: 10/22/18 19:31 Last Admin: 04/23/18 09:01 Dose: 25 mg Mometasone Furoate (Asmanex Hfa) 2 puff IH BIDRESP [facility]; Protocol Stop: 10/23/18 10:01 Naloxone HCl (Narcan) 0.4 mg IVP Q2MIN PRN PRN Reason: SEE COMMENTS Stop: 10/22/18 21:03 Omeprazole (Prilosec) 20 mg PO DAILY@0730 [facility]; Protocol Stop: 10/23/18 08:16 Last Admin: 04/23/18 09:06 Dose: 20 mg Prednisone (Prednisone) 10 mg PO DAILY [facility] Stop: 10/23/18 09:01 Last Admin: 04/23/18 09:01 Dose: 10 mg Sotalol HCl (Betapace) 80 mg PO Q12HR [facility] Stop: 10/23/18 03:16 Last Admin: 04/23/18 03:12 Dose: 80 mg Warfarin Sodium (Coumadin) 2.5 mg PO DAILY@2000 [facility] Stop: 10/22/18 21:16 Last Admin: 04/22/18 23:31 Dose: 2.5 mg Warfarin Sodium (Coumadin Perpt) 1 each PO DAILY@1800 PRN PRN Reason: SEE COMMENTS Stop: 10/23/18 18:01 - Imaging and Cardiology Echo: report reviewed Cardiac cath: report reviewed - EKG Interpretation EKG results cardiology: personally reviewed (A-Fib RVR), other (12 hr tele AVG HR 125, appears A-Flutter) Consult Discharge Plan - Plan Referrals: Aleksandar Strickland DO [Primary Care Provider] - <Cameron Neri - Last Filed: 04/23/18 13:58> Date of Encounter: 04/23/18 - Attending Attestation Patient was seen and evaluated independently by me. Findings, assessment and plan were discussed at length with patient, questions answered. Agree with nurse practitioner's/resident's documentation. Addition as follows, 67 yoCF ho PAF s/p ablation on warfarin and sotalol, recently cardizem was d/c due to bradycardia, HFpEF, DM, TIA, breast Ca. P/w palpitations, dyspnea days. Found back to Afib/Flutter with RVR. Trop neg. ECG no definitive ischemic change. nl eGFR. BP ok, IIR RVR, no W/R/C, pedal edema. A: Afib RVR Poor IV access HFpEF P: PICC line cardizem drip, add cardizem 120 c/w BB up sotalol c/w warfarin EP consult Cameron Neri MD, PhD Assessment and Plan Discussion w patient/family: The assessment and plan as outlined above was discussed with the patient and/or family members who expressed understanding and agreement. All questions were answered. Thank you for involving us in the care of your patient. Please call with any questions. History of Present Illness History of present illness: Ms. Merida is a 67 year old female All Systems Review: The remainder of the systems were reviewed and are negative Physical Examination Vital Signs, Last 4 Hours Temp Pulse Resp BP Pulse Ox 04/23/18 11:27 97.8 F 144 18 140/89 98 04/23/18 10:46 16 98 Results 04/23/18 03:36 04/23/18 03:36 Lab Results 04/22/18 04/22/18 04/22/18 18:11 18:11 18:11 WBC 10.6 Hgb 10.7 L Hct 35.4 Plt Count 335 INR Sodium 146 H Potassium 4.0 Chloride 108 H Carbon Dioxide 26 BUN 26 H Creatinine 0.81 Glucose 179 H Calcium 9.6 Magnesium Total Bilirubin AST ALT Alkaline Phosphatase Troponin I < 0.03 B-Natriuretic Peptide 364 H 04/22/18 04/23/18 04/23/18 19:47 03:36 03:36 WBC 11.9 H Hgb 9.8 L Hct 32.9 L Plt Count 297 INR 2.7 Sodium 144 Potassium 3.4 L Chloride 107 Carbon Dioxide 27 BUN 25 H Creatinine 0.62 Glucose 142 H Calcium 8.7 Magnesium 2.0 Total Bilirubin 0.3 AST 11 L ALT 19 Alkaline Phosphatase 61 Troponin I < 0.03 B-Natriuretic Peptide 04/23/18 03:36 WBC Hgb Hct Plt Count INR 2.9 Sodium Potassium Chloride Carbon Dioxide BUN Creatinine Glucose Calcium Magnesium Total Bilirubin AST ALT Alkaline Phosphatase Troponin I B-Natriuretic Peptide
[2018-04-23] MEDS: MOMETASONE FUROATE 100 mcg Inhaler IH SCH ×2 (10:46→22:51)
--- NOTE | 2018-04-23 13:36 | Electrophysiology Consult Note ---
<Sundeep Leslie - Last Filed: 04/23/18 13:44> Date of Encounter: 04/23/18 Time of Encounter: 13:35 Assessment and Plan Discussion w patient/family: 1) Afib RVR, hx of PAF: Per EP: Hx of PAF and has failed multiple antiarrhythmics (rythmol and amiodarone), she underwent Cryo ablation in June 2017, s/p DCCV 07/26/17. Loop recorder implanted 12/2017 d/t concern of bradycardia and palpitations, loop interrogation 01/13/18 was without events. She is on now on Sotalol 80mg BID (recently started) and anticoagulated on Coumadin. Recent CV testing: TTE 12/30/17: LVEF 60-65%, mild cLVH, moderate LVDD, mild-moderate TR, moderate PH, normall wall motion Loop implant 12/12/17 DCCV 07/26/17: successful conversion to NSR [facility] 10/18/15: minimal, non-obstructive CAD On sotalol 80 mg by mouth every 12 hours; recent initiation. Also taking Toprol-XL 25 mg by mouth daily. Currently on Cardizem drip of 5 mg per hour. Current heart rates in the 110s to 120s. Discussed and reviewed with Dr. Jose Armando Ness, will increase sotalol 220 mg by mouth every 12 hours. Baseline ECG showed atrial fib/flutter in the 120s with QTC 448 ms. Regarding long-term anticoagulation, continue coumadin for AC, goal INR 2-3. INR 2.9. Of note, subtherapeutic on 04/04/18--1.8; if would need DCCV, will need MIKEY prior. The assessment and plan as outlined above was discussed with the patient and/or family members who expressed understanding and agreement. All questions were answered. Thank you for involving us in the care of your patient. Please call with any questions. History of Present Illness Consult date: 04/23/18 Requesting physician: Minesh Wyatt Consult reason: Afib RVR, recs on Sotalol Chief complaint: VILLAGRAN, Palps History of present illness: Ms. Merida is a 67 year old female with a relevant PMHx significant of PAF s/p cryoablation in June 2017, HTN, diastolic CHF, and TIA. EP consult for antiarrhythmic recommendations. Reports had worsening shortness of breath and palpitations-- recently discharged on the after admission for CHF exacerbation as well as atrial fibrillation with RVR, currently on 25 mg Toprol XL and 80 mg of sotalol BID, has not missed a dose. Symptoms started Sunday night. She has had to increase it to 2 L. On arrival patient was found to be in atrial fibrillation with a heart rate in the 120s to 130s. Reports symptoms somewhat improved at this time. She does report some occasional palpitations. Denies any chest pain. Past Med Surg Social Fam HX - Past Medical History Attestation: Yes The following information was validated with the patient. Source: patient, old records reviewed Medical history: asthma, atrial fibrillation, CHF, diabetes, hyperlipidemia, hypertension, TIA, other Additional medical history: breast cancer Psychiatric history: no psych history - Past Surgical History Surgical History: breast surgery, cancer surgery, hysterectomy Additional surgical history: cardiac ablation, L mastectomy, LOOP recorder - Social History Smoking Status: Never smoker Smokeless Tobacco Status: No Alcohol use: none Drug use: none - Family History Father Family Member Ethnicity: Non- Living Status: Hx Family Cardiac Disorders: Yes (hypertension) Hx Family Respiratory Disorders: No Hx Family Cancer: No Hx Family GI Disorders: No Hx Family Endocrine Disorder: Yes (diabetes) Hx Family Neuromuscular Disorders: No Hx Family Neurologic Disorders: No Hx Family HEENT Disorders: No Hx Family Autoimmune Disorders: No Mother Adopted: No Family Member Ethnicity: Non- Living Status: Still Living Hx Family Cardiac Disorders: Yes (Afib) Hx Family Respiratory Disorders: No Hx Family Cancer: Yes (Colon) Hx Family GI Disorders: Yes (Cancer) Hx Family Endocrine Disorder: Yes Hx Family Neuromuscular Disorders: Yes (Stroke 2016) Hx Family Neurologic Disorders: No Hx Family HEENT Disorders: No Hx Family Autoimmune Disorders: No Medications and Allergies RX: Aspirin 81 mg PO DAILY 11/10/14 [History] RX: Psyllium Husk [Daily Fiber] 2 tab PO DAILY 10/15/15 [History] RX: Omeprazole [PriLOSEC] 20 mg PO DAILY 11/29/15 [History] RX: Calcium Carbonate [Calcium] 500 mg PO DAILY 05/28/17 [History] RX: Fluticasone Furoate [Arnuity Ellipta] 1 puff IH DAILY 05/28/17 [History] RX: Melatonin 5 mg PO HS PRN 05/28/17 [History] RX: Furosemide [Lasix] 40 mg PO DAILY PRN 07/26/17 [History] RX: Albuterol Sulfate [Ventolin Hfa] 2 puff PO Q6H PRN 01/28/18 [History] RX: Warfarin Sodium 2.5 mg PO DAILY@199904/14/18 [History] RX: predniSONE [PredniSONE] 10 mg PO DAILY 04/14/18 [History] RX: Metoprolol XL (24 HR) Succ [Toprol Xl] 25 mg PO DAILY tab.er.24h 04/17/18 [Rx] RX: Sotalol [Betapace] 80 mg PO Q12HR #60 tablet 04/17/18 [Rx] Allergy/AdvReac Type Severity Reaction Status Date / Time adhesive tape Allergy Hives Verified 01/28/18 11:45 All Systems Review: The remainder of the systems were reviewed and are negative - Cardiovascular Cardiovascular: as per HPI, dyspnea on exertion, palpitations Physical Examination Vital Signs, Last 4 Hours Temp Pulse Resp BP Pulse Ox 04/23/18 11:27 97.8 F 144 18 140/89 98 04/23/18 10:46 16 98 General: Conversant, No Apparent Distress HEENT: Atraumatic, Normocephaly, Mucus Membranes Moist Neck: No JVD, Normal carotid pulses Cardiac: No Murmur, Other (Irregularly irregular) Lungs: Normal Breath Sounds, No Wheeze, Rales, Rhonchi Neuro: Alert and responsive, No focal deficits noted Abdomen: Soft, Non-Tender Skin: No rashes noted on visualized skin Musculoskeletal: No Chest Wall Tenderness Extremities: No Clubbing, No Cyanosis, Normal Pulses, Other (trace bilateral LE edema) Results 04/23/18 03:36 04/23/18 03:36 Lab Results Laboratory Tests 04/22/18 04/22/18 04/23/18 18:11 18:11 03:36 Hgb 9.8 L Hct 32.9 L INR Potassium Creatinine Est GFR (Non-Af Amer) Magnesium Troponin I < 0.03 B-Natriuretic Peptide 364 H 04/23/18 04/23/18 03:36 03:36 Hgb Hct INR 2.9 Potassium 3.4 L Creatinine 0.62 Est GFR (Non-Af Amer) > 60 Magnesium 2.0 Troponin I < 0.03 B-Natriuretic Peptide ITS Impressions Chest X-Ray 04/22/18 18:13 IMPRESSION: 1. Increased pulmonary vascular congestion. 2. Low lung volumes with bibasilar atelectasis, slightly increased. D/ / 04/22/2018 18:48:05 Kal Kerr MD / diann Interpreting Provider: Kal Kerr MD Active Medications Acetaminophen (Tylenol) 650 mg PO Q6H PRN PRN Reason: Fever Stop: 10/23/18 02:58 Last Admin: 04/23/18 03:12 Dose: 650 mg Aspirin (Aspirin) 81 mg PO DAILY [facility] Stop: 10/23/18 09:01 Last Admin: 04/23/18 09:01 Dose: 81 mg Calcium Carbonate (Tums) 500 mg PO DAILY [facility] Stop: 10/23/18 09:01 Last Admin: 04/23/18 09:01 Dose: 500 mg Diltiazem HCl 50 mg/ Sodium (Chloride) 50 mls @ 5 mls/hr IVC .Q10H [facility]; Protocol Stop: 10/23/18 11:16 Last Admin: 04/23/18 12:55 Dose: 5 mg/hr, 5 mls/hr Melatonin (Melatonin) 6 mg PO HS PRN PRN Reason: Sleep Metoprolol Succinate (Toprol Xl) 25 mg PO DAILY [facility] Stop: 10/22/18 19:31 Last Admin: 04/23/18 09:01 Dose: 25 mg Mometasone Furoate (Asmanex Hfa) 2 puff IH BIDRESP [facility]; Protocol Stop: 10/23/18 10:01 Last Admin: 04/23/18 10:46 Dose: 2 puff Naloxone HCl (Narcan) 0.4 mg IVP Q2MIN PRN PRN Reason: SEE COMMENTS Stop: 10/22/18 21:03 Omeprazole (Prilosec) 20 mg PO DAILY@0730 [facility]; Protocol Stop: 10/23/18 08:16 Last Admin: 04/23/18 09:06 Dose: 20 mg Prednisone (Prednisone) 10 mg PO DAILY [facility] Stop: 10/23/18 09:01 Last Admin: 04/23/18 09:01 Dose: 10 mg Sotalol HCl (Betapace) 120 mg PO Q12HR [facility] Stop: 10/23/18 18:01 Warfarin Sodium (Coumadin Perpt) 1 each PO DAILY@1800 PRN PRN Reason: SEE COMMENTS Stop: 10/23/18 18:01 Warfarin Sodium (Coumadin) 2.5 mg PO 1800 [facility] Stop: 04/23/18 18:01 Consult Discharge Plan - Plan Referrals: Aleksandar Strickland DO [Primary Care Provider] - <Jose Armando Ness - Last Filed: 04/25/18 10:45> Date of Encounter: 04/25/18 - Attending Attestation I have personally performed a face to face evaluation on this patient. I have reviewed and agree with the care plan. History and Exam by me shows: Recurrent PAF, will titrate sotalol up. Assessment and Plan Discussion w patient/family: The assessment and plan as outlined above was discussed with the patient and/or family members who expressed understanding and agreement. All questions were answered. Thank you for involving us in the care of your patient. Please call with any questions. History of Present Illness History of present illness: Ms. Merida is a 67 year old female All Systems Review: The remainder of the systems were reviewed and are negative Physical Examination Vital Signs, Last 4 Hours Temp Pulse Resp BP Pulse Ox 04/25/18 07:30 16 96 04/25/18 07:09 97.6 F 78 16 134/78 95 Results 04/23/18 03:36 04/25/18 04:15 Lab Results 04/25/18 04/25/18 04:15 04:15 INR 4.0 Sodium 144 Potassium 3.5 Chloride 108 H Carbon Dioxide 29 BUN 26 H Creatinine 0.64 Glucose 125 H Calcium 8.4 L Magnesium 1.9
--- NOTE | 2018-04-23 13:52 | Event Note ---
Date of Encounter: 04/23/18 Time of Encounter: 13:50 - Cardiology Event Note Will continue Toprol XL 25mg PO daily for now. Titrate Cardizem gtt to keep HR less than 100 bpm.
[2018-04-23] MEDS ORDERED: Warfarin perPT PO PRN (18:00)
[2018-04-23] MEDS ORDERED: *HR* Warfarin 5 MG TABLET PO ONE (18:00)
[2018-04-24 04:14] LABS: INR 3.7; Prothrombin Time 41.9 Seconds (9.4-12.1)
--- NOTE | 2018-04-24 09:19 | Electrocardiograph Report ---
[address] [address] Test Date: 2018-04-22 Pat Name: Erica Merida Department: EXAM12 Room: 2A48 Gender: F Crisis Clinician: : [id number] Requested By: Franki Quiñonez Order Number: [id number] Reading MD: Lisa Burnett Measurements Intervals [place] Rate: 128 P: [place]: QRS: 34 QRSD: 82 T: 59 QT: 307 QTc: 448 Interpretive Statements Atrial flutter/fibrillation Low voltage, precordial leads Electronically Signed On 04-24-2018 9:17:47 EST by Lisa Burnett
[2018-04-24] MEDS: Aspirin 81 MG TAB.CHEW PO SCH (09:21)
[2018-04-24] MEDS: Metoprolol XL (24 HR) Succ 25 MG TAB.ER.24H PO SCH (09:21)
[2018-04-24] MEDS: predniSONE 10 MG TABLET PO SCH (09:21)
[2018-04-24] MEDS: MOMETASONE FUROATE 100 mcg Inhaler IH SCH ×2 (09:58→21:55)
--- NOTE | 2018-04-24 11:06 | Electrophysiology ProgressNote ---
Date of Encounter: 04/24/18 Time of Encounter: 08:30 Assessment and Plan (1) Atrial fibrillation with RVR Current Visit: Yes Status: Acute Per EP: -Presented with dyspnea and palpitations. Afib with RVR 120-130's upon arrival. Longstanding hx of PAF s/p cryoablation and has failed multiple antiarrhythmics in the past--Rythmol, amiodarone. -K 3.4--replace. Mag WNL. -Continue coumadin for AC, goal INR 2-3. Pharmacy to dose as inpt. INR 3.7. Of note, subtherapeutic on 04/04/18--1.8; if would need DCCV, will need MIKEY prior. -Patient was on sotalol 80mg BID, has now been increased to 120mg BID. -Baseline ECG 04/22/18 with a.fib RVR, HR 128, QT 307, QTc 448ms. -ECG today s/p 2 total doses of 120mg with a.fib, HR 94. QT 354/QTc 406ms. -Average HR previous 12 hours noted to be 103. -Continue BB, continue sotalol. -ECG in am. -Continuous telemetry monitoring. -NPO after midnight for possible MIKEY/DCCV in am. -Will continue to monitor. Discussion w patient/family: The assessment and plan as outlined above was discussed with the patient who expressed understanding and agreement. All questions were answered. Thank you for involving us in the care of your patient. Please call with any questions. Discussed and reviewed with Dr.John Ness. Subjective Principal diagnosis: a.fib RVR Interval history: Patient reports feeling somewhat better today. Objective Vital Signs, Last 4 Hours Temp Pulse Resp BP Pulse Ox 04/24/18 10:00 19 98 04/24/18 09:33 98 04/24/18 07:43 97.5 F L 84 19 149/68 96 General: Conversant, No Apparent Distress HEENT: Atraumatic, Normocephaly, Mucus Membranes Moist Neck: No JVD, Normal carotid pulses Cardiac: Normal S1 and S2, No Murmur, Other (Irregularly irregular) Lungs: Other (lung sounds diminished throughout) Neuro: Alert and responsive, No focal deficits noted Abdomen: Soft, Non-Tender Skin: No rashes noted on visualized skin Musculoskeletal: No Chest Wall Tenderness Extremities: No Clubbing, No Cyanosis, No Edema, Normal Pulses Results 04/23/18 03:36 04/23/18 03:36 Lab Results Active Medications Acetaminophen (Tylenol) 650 mg PO Q6H PRN PRN Reason: Fever Stop: 10/23/18 02:58 Last Admin: 04/23/18 21:57 Dose: 650 mg Aspirin (Aspirin) 81 mg PO DAILY PERFECTO Stop: 10/23/18 09:01 Last Admin: 04/24/18 09:21 Dose: 81 mg Calcium Carbonate (Tums) 500 mg PO DAILY PERFECTO Stop: 10/23/18 09:01 Last Admin: 04/24/18 09:21 Dose: 500 mg Diltiazem HCl 50 mg/ Sodium (Chloride) 50 mls @ 5 mls/hr IVC .Q10H [facility]; Protocol Stop: 10/23/18 11:16 Last Titration: 04/23/18 19:00 Dose: 0 mg/hr, 0 mls/hr Melatonin (Melatonin) 6 mg PO HS PRN PRN Reason: Sleep Metoprolol Succinate (Toprol Xl) 25 mg PO DAILY [facility] Stop: 10/22/18 19:31 Last Admin: 04/24/18 09:21 Dose: 25 mg Mometasone Furoate (Asmanex Hfa) 2 puff IH BIDRESP [facility]; Protocol Stop: 10/23/18 10:01 Last Admin: 04/24/18 09:58 Dose: 2 puff Naloxone HCl (Narcan) 0.4 mg IVP Q2MIN PRN PRN Reason: SEE COMMENTS Stop: 10/22/18 21:03 Omeprazole (Prilosec) 20 mg PO DAILY@0730 [facility]; Protocol Stop: 10/23/18 08:16 Last Admin: 04/24/18 09:21 Dose: 20 mg Prednisone (Prednisone) 10 mg PO DAILY [facility] Stop: 10/23/18 09:01 Last Admin: 04/24/18 09:21 Dose: 10 mg Sotalol HCl (Betapace) 120 mg PO Q12HR [facility] Stop: 10/23/18 18:01 Last Admin: 04/24/18 05:17 Dose: 120 mg Warfarin Sodium (Coumadin Perpt) 1 each PO DAILY@1800 PRN PRN Reason: SEE COMMENTS Stop: 10/23/18 18:01 Laboratory Tests 04/24/18 03:45 INR 3.7 - Imaging and Cardiology Chest Xray: report reviewed Stress Test: report reviewed Echo: report reviewed - EKG Interpretation EKG results cardiology: other (Telemetry reviewed with average HR previous 12 hours noted to be 103, a.fib/flutter. PVCs noted.) Consult Discharge Plan - Plan Referrals: Aleksandar Strickland DO [Primary Care Provider] -
--- NOTE | 2018-04-24 11:39 | Internal Med Progress Note ---
Hospitalist Progress Note - Encounter Date of Encounter: 04/24/18 Time of Encounter: 11:36 - Subjective Interval History: I have seen and evaluated the patient at bedside. patient reports feeling better, denies chest pain, lightheaded, nausea and vomiting. - Exam Vitals: Temp Pulse Resp BP Pulse Ox 97.5 F L 84 19 149/68 98 04/24/18 07:43 04/24/18 07:43 04/24/18 10:00 04/24/18 07:43 04/24/18 10:00 Exam: Vitals: Reviewed General: Obese, Alert and oriented x4. In no distress Skin: Normal color, no rash, no lesions. HEENT: EOM, pupils equal, round and reactive. Cardiovascular: Irregularly, irregular, normal S1 & S2, no rubs, murmurs or gallops. Lungs: CTA b/l, no wheezes or crackles. Abdomen: Obese, soft, non-tender, no rigidity. Extremities: 2+ pitting edema. Neurological: Normal cognition and motor skills. Rest of the physical exam is non contributory - Assessment and Plan (1) Atrial fibrillation with RVR Current Visit: Yes Status: Acute Assessment and Plan: Rate controlled on sotalol 120mg/PO Q12hrs, plus metoprolol 25mg/PO daily per cardiology recommendations. Cardizem drip has been d/c. On warfarin per pharmacy protocol, with therapeutic INR for secondary stroke prevention. patient scheduled for MIKEY/DCCV in am. (2) Anemia Current Visit: Yes Status: Chronic Assessment and Plan: H&H stable. will continue to monitor. (3) (HFpEF) heart failure with preserved ejection fraction Current Visit: No Status: Chronic Assessment and Plan: chest is clear to auscultation. 2 plus pitting edema in the lower extr b/l. will resume furosemide 40mg/PO daily daily weight, plus strict intake and output. fluids restriction to 1.5 litters a day. (4) Chronic respiratory failure Current Visit: No Status: Chronic Assessment and Plan: Continue 2 L of oxygen by nasal cannula. Patient is being taper off prednisone 10mg?PO daily for possible cryptogenic organizing pneumonia on a recent admission. will continue steroids until patient is evaluated by pulm in the outpatient settings. (5) Diabetes Current Visit: Yes Status: Chronic Assessment and Plan: Lambert controlled diet. Started on Levemir 15 units at bedtime plus lispro low- dose sliding scale before meals. (6) Hypokalemia Current Visit: Yes Status: Acute Assessment and Plan: electrolyte replaced DVT Prophylaxis: Patient on warfarin due to A. fib, with a therapeutic INR. - Summary of Assessment and Plan Summary of Assessment and Plan: Patient to remain in the hospital due to A. fib. Scheduled for MIKEY/DCCV in am. - Time Spent with Patient Total time spent is greater than 50% in coordination of care (as documented) at patient's floor/unit and/or counseling patient: Greater than 35 minutes (40) Plan of Care Discussed with: patient (and the nurse.) Internal Medicine: Result - Labs CBC & Chem 7: 04/23/18 03:36 04/23/18 03:36 - ABG Interpretation ABG results: PT/INR, D-dimer PT 41.9 Seconds (9.4-12.1) H 04/24/18 03:45 Consult Discharge Plan - Plan Referrals: Aleksandar Strickland DO [Primary Care Provider] - (2) Anemia Qualifiers: Anemia type: unspecified type Qualified Code(s): D64.9 - Anemia, unspecified (3) (HFpEF) heart failure with preserved ejection fraction Qualifiers: Heart failure chronicity: acute on chronic Qualified Code(s): I50.33 - Acute on chronic diastolic (congestive) heart failure (4) Chronic respiratory failure Qualifiers: Respiratory failure complication: unspecified whether with hypoxia or hypercapnia Qualified Code(s): J96.10 - Chronic respiratory failure, unspecified whether with hypoxia or hypercapnia (5) Diabetes Qualifiers: Diabetes mellitus type: type 2 Diabetes mellitus complication status: with unspecified complications
[2018-04-24] MEDS ORDERED: Dextrose Gel 15 GM/37.5 ML TUBE PO PRN ×2 (11:42)
[2018-04-24] MEDS ORDERED: *HR* Dextrose 50 % in Water (Syg) 50 ML SYRINGE IVP PRN (11:42)
[2018-04-24] MEDS ORDERED: D5% in Water 1,000 ML IVC PRN (11:42)
[2018-04-24] MEDS ORDERED: Dextrose 4 GM Chewable Tablets PO PRN ×2 (11:42)
[2018-04-24] MEDS: Furosemide 40 MG TABLET PO SCH (13:57)
[2018-04-24] MEDS: Insulin LISPRO 300 UNITS/3 ML VIAL SQ SCH (16:58)
[2018-04-24] MEDS: Insulin DETEMIR 100 UNIT/ML X5UNITS SQ SCH (21:08)
[2018-04-24] MEDS: Acetaminophen 325 MG TABLET PO PRN (22:47)
[2018-04-25 04:45] LABS: Prothrombin Time 45.6 Seconds (9.4-12.1)
[2018-04-25 04:57] LABS: BUN/Creatinine Ratio 41 (6-26); Blood Urea Nitrogen 26 mg/dL (8-23); Calcium 8.4 mg/dL (8.6-10.3); Carbon Dioxide 29 mEq/L (23-29); Chloride 108 mEq/L (98-107); Glucose 125 mg/dL (70-105); Magnesium 1.9 mg/dL (1.6-2.6); Osmolality,Calculated 304 (280-300); Phosphorous 3.7 mg/dL (2.7-4.5); Potassium 3.5 mEq/L (3.5-5.1); Sodium 144 mEq/L (136-145); eGFR For Non-African Americans > 60 (> 60)
[2018-04-25] MEDS: Acetaminophen 325 MG TABLET PO PRN ×2 (05:15→21:29)
[2018-04-25] MEDS: Insulin LISPRO 300 UNITS/3 ML VIAL SQ SCH ×3 (07:20→16:51)
[2018-04-25] MEDS: MOMETASONE FUROATE 100 mcg Inhaler IH SCH ×2 (07:30→22:18)
[2018-04-25] MEDS: Metoprolol XL (24 HR) Succ 25 MG TAB.ER.24H PO SCH (08:40)
[2018-04-25] MEDS: predniSONE 10 MG TABLET PO SCH (08:40)
[2018-04-25] MEDS: Aspirin 81 MG TAB.CHEW PO SCH (08:40)
--- NOTE | 2018-04-25 09:25 | Internal Med Progress Note ---
Hospitalist Progress Note - Encounter Date of Encounter: 04/25/18 Time of Encounter: 09:22 - Subjective Interval History: I have seen and evaluated the patient at bedside. she denies lightheadedness, palpitations or chest pain. HR better controlled over the past 12-24 hours. - Exam Vitals: Temp Pulse Resp BP Pulse Ox 97.6 F 78 16 134/78 96 04/25/18 07:09 04/25/18 07:09 04/25/18 07:30 04/25/18 07:09 04/25/18 07:30 Exam: Vitals: Reviewed General: Obese, Alert and oriented x4. In no distress HEENT: EOM, pupils equal, round and reactive. Cardiovascular: Irregularly, irregular, normal S1 & S2, no rubs, murmurs or gallops. Lungs: CTA b/l, no wheezes or crackles. Abdomen: Obese, soft, non-tender, no rigidity. NABS in all 4 quadrants Extremities: 1+ pitting edema. Neurological: Normal cognition. CN II-XII intact Rest of the physical exam is non contributory - Assessment and Plan (1) Atrial fibrillation with RVR Current Visit: Yes Status: Acute Assessment and Plan: Rate controlled now. patient was briefly re-started on the cardizem drip yes terday. scheduled for MIKEY/cardioversion today On warfarin per pharmacy protocol for secondary stroke prevention due to high CHADSVASC score on sotalol 120mg/PO Q12hr discussed with cardiology team about increasing metoprolol. They will consider medication adjustment following cardioversion. (2) Anemia Current Visit: Yes Status: Chronic Assessment and Plan: H&H stable. will repeat cbc tomorrow morning. (3) (HFpEF) heart failure with preserved ejection fraction Current Visit: No Status: Chronic Assessment and Plan: patient is euvolemic. on furosemide 40mg/PO daily. continue fluids restriction to 1.5 litters a day plus strict intake and output. (4) Chronic respiratory failure Current Visit: No Status: Chronic Assessment and Plan: On 2 litter of O2 by nasal cannula. on prednisone 5mg/PO daily. being taper due to recent pneumonia (possible organizing cryptogenic pneumonia). Will repeat a ct of the chest tomorrow morning, per Pulm request for follow up. (5) Diabetes Current Visit: Yes Status: Chronic Assessment and Plan: Blood sugar is controlled on levemir 10 units hs, plus lispro low dose sliding scale ac. continue carb controlled diet. (6) Hypokalemia Current Visit: Yes Status: Resolved DVT Prophylaxis: Patient on warfarin due to A.fib with a therapeutic INR - Summary of Assessment and Plan Summary of Assessment and Plan: Patient to remain in the hospital due A.fib. scheduled for MIKEY/cardioversion today. Potential discharge tomorrow - Time Spent with Patient Total time spent is greater than 50% in coordination of care (as documented) at patient's floor/unit and/or counseling patient: Greater than 35 minutes (40) Plan of Care Discussed with: patient (the nurse) Internal Medicine: Result - Labs CBC & Chem 7: 04/23/18 03:36 04/25/18 04:15 Labs: BMP 04/25/18 04:15 Sodium 144 Potassium 3.5 Chloride 108 H Carbon Dioxide 29 BUN 26 H Creatinine 0.64 Glucose 125 H Calcium 8.4 L - ABG Interpretation ABG results: PT/INR, D-dimer PT 45.6 Seconds (9.4-12.1) H* 04/25/18 04:15 Consult Discharge Plan - Plan Referrals: Aleksandar Strickland DO [Primary Care Provider] - (2) Anemia Qualifiers: Anemia type: unspecified type Qualified Code(s): D64.9 - Anemia, unspecified (3) (HFpEF) heart failure with preserved ejection fraction Qualifiers: Heart failure chronicity: acute on chronic Qualified Code(s): I50.33 - Acute on chronic diastolic (congestive) heart failure (4) Chronic respiratory failure Qualifiers: Respiratory failure complication: unspecified whether with hypoxia or hypercapnia Qualified Code(s): J96.10 - Chronic respiratory failure, unspecified whether with hypoxia or hypercapnia (5) Diabetes Qualifiers: Diabetes mellitus type: type 2 Diabetes mellitus complication status: with unspecified complications
[2018-04-25] MEDS ORDERED: Tetracaine/Benzocaine/Butamben 1 SPRAY AEROSOL MM ONE (10:46)
[2018-04-25] MEDS ORDERED: 0.9 % Sodium Chloride 500 ML IVC ONE (10:46)
[2018-04-25] MEDS ORDERED: Lidocaine Viscous Oral Soln 15 ML SOLUTION MM PRN (10:46)
--- NOTE | 2018-04-25 11:07 | Event Note ---
Date of Encounter: 04/25/18 Time of Encounter: 09:00 - Cardiology Event Note Patient admitted with a.fib RVR, sotalol was increased. Currently s/p 4 total doses of increased sotalol. ECG today with a.fib, HR 80. QT 418/QTc 454ms. QT/QTc has remained stable. ECGs reviewed with Dr.John Ness. Of note, required cardizem drip overnight for RVR, now off and HR controlled. Plan for MIKEY guided cardioversion today, requires MIKEY due to subtherapeutic INR 04/04/18. Risks versus benefits of MIKEY/cardioversion explained to patient and family. Patient states understanding and agreeable to proceed. Further recs pending MIKEY/DCCV. Further medication recs pending cardioversion.
[2018-04-25] MEDS: *HR* FentaNYL (PF) 100 MCG/2 ML VIAL IVP PRN ×3 (11:55→12:15)
[2018-04-25] MEDS: *HR* Midazolam HCl 5 MG/5 ML VIAL IVP PRN ×3 (11:55→12:15)
[2018-04-25] MEDS: Furosemide 40 MG TABLET PO SCH (16:50)
--- NOTE | 2018-04-25 20:50 | Electrocardiograph Report ---
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
--- NOTE | 2018-04-25 20:55 | Electrocardiograph Report ---
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
--- NOTE | 2018-04-25 21:12 | Electrocardiograph Report ---
[address] [place] [address] Test Date: 2018-04-24 Pat Name: Erica Merida Department: 112 Room: 2A48 Gender: F Doffer: : 1950 Requested By: Minesh Wyatt Order Number: [id number] Reading MD: Lisa Burnett Measurements Intervals [place] Rate: 94 P: CO: 0 QRS: 37 QRSD: 77 T: 35 QT: 354 QTc: 406 Interpretive Statements ATRIAL FIBRILLATION LOW QRS VOLTAGE IN PRECORDIAL LEADS ABNORMAL RHYTHM ECG Electronically Signed On 04-25-2018 21:10:20 EST by Lisa Burnett
[2018-04-25] MEDS: Insulin DETEMIR 100 UNIT/ML X5UNITS SQ SCH (21:30)
[2018-04-26 04:54] LABS: INR 3.4; Prothrombin Time 38.6 Seconds (9.4-12.1)
[2018-04-26 07:09] VITALS: BP 138/75
[2018-04-26] MEDS: Insulin LISPRO 300 UNITS/3 ML VIAL SQ SCH (07:21)
[2018-04-26] MEDS: MOMETASONE FUROATE 100 mcg Inhaler IH SCH (07:41)
[2018-04-26] MEDS: Metoprolol XL (24 HR) Succ 25 MG TAB.ER.24H PO SCH (09:13)
[2018-04-26] MEDS: predniSONE 10 MG TABLET PO SCH (09:14)
[2018-04-26] MEDS: Aspirin 81 MG TAB.CHEW PO SCH (09:14)
[2018-04-26] MEDS: Furosemide 40 MG TABLET PO SCH (09:14)
--- NOTE | 2018-04-26 09:53 | Electrophysiology ProgressNote ---
Date of Encounter: 04/26/18 Time of Encounter: 09:53 Assessment and Plan (1) Atrial fibrillation with RVR Current Visit: Yes Status: Acute Per EP: -Presented with dyspnea and palpitations. Afib with RVR 120-130's upon arrival. Longstanding hx of PAF s/p cryoablation and has failed multiple antiarrhythmics in the past--Rythmol, amiodarone. -Continue coumadin for AC, goal INR 2-3. Pharmacy to dose as inpt. INR 3.4. Of note, subtherapeutic on 04/04/18--1.8. -Patient was on sotalol 80mg BID, has now been increased to 120mg BID. -Baseline ECG 04/22/18 with a.fib RVR, HR 128, QT 307, QTc 448ms. -ECG s/p 2 total doses of 120mg with a.fib, HR 94. QT 354/QTc 406ms. -ECG today s/p 6 total doses of 120mg with SR, HR 63. QT 452/QTc 460ms. -S/p MIKEY/DCCV 04/25/18, successful. -Average HR previous 12 hours noted to be 60, SR. -Continue sotalol 120mg BID. Cotinue toprol 25mg daily. Continue coumadin for anticoagulation. -Cardiology/EP will sign off, will arrange outpatient follow up. Discussion w patient/family: The assessment and plan as outlined above was discussed with the patient who expressed understanding and agreement. All questions were answered. Thank you for involving us in the care of your patient. Please call with any questions. Discussed and reviewed with Dr.John Ness. Subjective Principal diagnosis: a.fib RVR Interval history: Patient reports feeling well today. Denies complaints. Objective Vital Signs, Last 4 Hours Temp Pulse Resp BP Pulse Ox 04/26/18 07:42 16 94 04/26/18 07:03 97.4 F L 57 20 138/75 97 General: Conversant, No Apparent Distress HEENT: Atraumatic, Normocephaly, Mucus Membranes Moist Neck: No JVD, Normal carotid pulses Cardiac: Reg Rate and Rhythm, Normal S1 and S2, No Murmur Lungs: Normal Breath Sounds, No Wheeze, Rales, Rhonchi Neuro: Alert and responsive, No focal deficits noted Abdomen: Soft, Non-Tender Skin: No rashes noted on visualized skin Musculoskeletal: No Chest Wall Tenderness Extremities: No Clubbing, No Cyanosis, No Edema, Normal Pulses Results 04/23/18 03:36 04/25/18 04:15 Lab Results Impressions Transesophageal w/Cardioversion 04/25/18 09:28 Impressions: Successful DCCV of atrial fibrillation to normal sinus rhythm. No evidence for intra-cardiac thrombus by MIKEY done pre-cardioversion. Medication Given: Time Medication Dose Units Route 11:55 Versed 2 mg IV 11:55 Fentanyl 25 mcg IV 12:00 Versed 2 mg IV 12:00 Fentanyl 25 mcg IV 12:15 Versed 1 mg IV 12:15 Fentanyl 25 mcg IV Findings: Left Ventricle * There is no LV thrombus. * Normal size and function. Left Atrium * No thrombus present. * The LA appendage flow velocity is borderline normal. Right Atrium * No thrombus present. Pulmonary Veins * There is no pulmonary vein thrombus. Right Ventricle * The right ventricle was normal in size and systolic function. Procedure Summary: After explaining the risks, benefits, and alternatives of the procedure to the patient in detail and answering all questions to satisfaction, an informed consent was obtained in writing. The patient was NPO for the six hours prior to the procedure. The patient denied dysphagia, odynophagia, and loose teeth. The patient was monitored with periodic automated blood pressures and continuous pulse oximetry and telemetry. Continuous oxygen was administered by DC. The patient was placed in the full upright position and the posterior oropharynx was anesthetized as above and complete suppression of the gag reflex was obtained. The patient was then placed in the left lateral decubitus position, the neck was flexed, and a bite block was placed in the patient's mouth. IV sedation was administered. Once adequate sedation was achieved, a well-lubricated anteflexed multipoint intraesophageal echocardiographic probe was inserted into the midline posterior oropharynx. Gentle pressure was applied as the patient swallowed and the esophagus was intubated without difficulty. The scope was advanced to the mid esophagus without encountering resistance. Images were obtained from the mid and upper esophagus. The scope was then slowly withdrawn as the patient was continually suctioned. The patient tolerated the procedure well. After adequate sedation was achieved, cardioversion in the AP approach was performed using 150 Joules of biphasic energy. Normal sinus rhythm was restored after 1 attempt(s). The patient was monitored for the standard 30 minutes post procedure. No focal neurologic deficits noted post procedure. Attempt # 1 150 joules Complications: None History: Hypertension Diabetes Hypercholesteremia Family History of CAD Congestive Heart Failure Previous Echo 02/05/2018 BP 128 / 94 Updated by Lisa Burnett on 04/25/2018 1:04:10 PM electronically signed on 04/25/2018 1:06:43 PM with status of Final [employer] [place]: 1=Normal, 2=Hypokinesis, 3=Akinesis, 4=Dyskinesis, 5=Aneurysmal, 6=Hyperkinetic, X=Not Visualized (Blank)=Missing Chest CT 04/26/18 07:25 IMPRESSION: 1. Redemonstration of alveolar infiltrates as well as denser consolidation in the right middle and lobe right lower lobe. 2. Small right pleural effusion worse compared with the previous evaluation. 3. Pulmonary nodule in the left lung also previously demonstrated. 4. Mild mediastinal and right hilar adenopathy. This was also seen previously. D/ / 04/26/2018 09:08:01 Halley Garvin MD / diann Interpreting Provider: Halley Garvin MD Active Medications Acetaminophen (Tylenol) 650 mg PO Q6H PRN PRN Reason: Fever Stop: 10/23/18 02:58 Last Admin: 04/25/18 21:29 Dose: 650 mg Aspirin (Aspirin) 81 mg PO DAILY [facility] Stop: 10/23/18 09:01 Last Admin: 04/26/18 09:14 Dose: 81 mg Calcium Carbonate (Tums) 500 mg PO DAILY [facility] Stop: 10/23/18 09:01 Last Admin: 04/26/18 09:13 Dose: 500 mg Dextrose (Glucose Tablets) 28 gm PO ONCE PRN PRN Reason: Hypoglycemia Stop: 10/24/18 11:43 Dextrose (Glucose Tablets) 16 gm PO ONCE PRN PRN Reason: Hypoglycemia Stop: 10/24/18 11:43 Dextrose/Water (Dextrose 50% (Syg)) 25 ml IVP AD PRN PRN Reason: Hypoglycemia Stop: 10/24/18 11:43 Furosemide (Lasix) 40 mg PO DAILY [facility] Stop: 10/24/18 12:01 Last Admin: 04/26/18 09:14 Dose: Not Given Glucagon (Glucagen) 1 mg IM ONCE PRN PRN Reason: Hypoglycemia Stop: 10/24/18 11:43 Glucose (Gluctose) 15 gm PO ONCE PRN PRN Reason: Hypoglycemia Stop: 10/24/18 11:43 Glucose (Gluctose) 30 gm PO ONCE PRN PRN Reason: Hypoglycemia Stop: 10/24/18 11:43 Dextrose (Dextrose 5%) 1,000 mls @ 100 mls/hr IVC .Q10H PRN PRN Reason: HYPOGLYCEMIA Stop: 10/24/18 11:43 Insulin Detemir (Levemir) 10 unit SQ HS [facility] Stop: 10/24/18 21:01 Last Admin: 04/25/18 21:30 Dose: Not Given Insulin Human Lispro (Humalog) 0 units SQ TIDAC [facility]; Protocol Stop: 10/24/18 16:31 Last Admin: 04/26/18 07:21 Dose: Not Given Melatonin (Melatonin) 6 mg PO HS PRN PRN Reason: Sleep Last Admin: 04/25/18 21:29 Dose: 6 mg Metoprolol Succinate (Toprol Xl) 25 mg PO DAILY [facility] Stop: 10/22/18 19:31 Last Admin: 04/26/18 09:13 Dose: 25 mg Mometasone Furoate (Asmanex Hfa) 2 puff IH BIDRESP [facility]; Protocol Stop: 10/23/18 10:01 Last Admin: 04/26/18 07:41 Dose: 2 puff Naloxone HCl (Narcan) 0.4 mg IVP Q2MIN PRN PRN Reason: SEE COMMENTS Stop: 10/22/18 21:03 Omeprazole (Prilosec) 20 mg PO DAILY@0730 [facility]; Protocol Stop: 10/23/18 08:16 Last Admin: 04/26/18 09:14 Dose: 20 mg Prednisone (Prednisone) 10 mg PO DAILY [facility] Stop: 10/23/18 09:01 Last Admin: 04/26/18 09:14 Dose: 10 mg Sotalol HCl (Betapace) 120 mg PO Q12HR [facility] Stop: 10/23/18 18:01 Last Admin: 04/26/18 05:53 Dose: 120 mg Warfarin Sodium (Coumadin Perpt) 1 each PO DAILY@1800 PRN PRN Reason: SEE COMMENTS Stop: 10/23/18 18:01 Laboratory Tests 04/26/18 04:12 INR 3.4 - Imaging and Cardiology Chest Xray: report reviewed Echo: report reviewed - EKG Interpretation EKG results cardiology: other (Telemetry reviewed with average HR previous 12 hours noted to be 62, SR. PVCs and PACs noted.) Consult Discharge Plan - Plan Referrals: Aleksandar Strickland DO [Primary Care Provider] - 05/08/18 1:30 pm (Please follow up as schedule...)
--- NOTE | 2018-04-26 10:37 | Discharge Summary ---
- NOTES TO OUTPATIENT PROVIDER Notes to Outpatient Provider: follow up with your cardiology within a week of hosptial discharge. Orders not resulted at time of discharge: Pending orders 04/24/18 06:00 ECG 12 lead ECG [ECG] AM 0600 04/26/18 06:00 ECG 12 lead ECG [ECG] AM 0600 04/27/18 04:00 PT/INR [Prothrombin Time INR] [COAG] AM 0400 Date of Encounter: 04/26/18 Time of Encounter: 10:35 - Discharge Diagnosis (1) Atrial fibrillation with RVR Priority: Primary Status: Resolved (2) Anemia Priority: Secondary Status: Chronic Qualifiers: Anemia type: unspecified type Qualified Code(s): D64.9 - Anemia, unspecified (3) (HFpEF) heart failure with preserved ejection fraction Priority: Secondary Status: Chronic Qualifiers: Heart failure chronicity: acute on chronic Qualified Code(s): I50.33 - Acute on chronic diastolic (congestive) heart failure (4) Chronic respiratory failure Priority: Secondary Status: Chronic Qualifiers: Respiratory failure complication: unspecified whether with hypoxia or hypercapnia Qualified Code(s): J96.10 - Chronic respiratory failure, unspecified whether with hypoxia or hypercapnia (5) Diabetes Priority: Secondary Status: Chronic Qualifiers: Diabetes mellitus type: type 2 Diabetes mellitus complication status: with unspecified complications Qualified Code(s): E11.8 - Type 2 diabetes mellitus with unspecified complications (6) Hypokalemia Priority: Secondary Status: Resolved Hospital course: Ms. Merida is a 67 year old female PMH asthma, atrial fibrillation, CHF, diabetes, hyperlipidemia, hypertension, TIA. who presented to the ED because of palpitations. Patient was found to be in A. Fib with RvR. Admitted to the hospital and placed on a cardizem drip. Following 12-24 hours on a cardizem drip rate was controlled. Medication adjusted by cardiology. Sotalol increase to 120mg/PO Q12HRs, plus metoprolol 25mg/PO. Patient underwent MIKEY/cardioversion and rythm went back to sinus. Patient HR is been controlled on oral medications. Patient's acute symptoms have resolved. she is hemodynamically stable to be discharged home. recommended to follow with cardiology and Pulm as outpatient. - Time Spent with Patient Total time spent providing and/or coordinating discharge services: Greater than 30 minutes (35) - Discharge Medications Prescriptions: New Sotalol [Betapace] 120 mg PO Q12HR 30 Days #60 tablet Continue Aspirin 81 mg PO DAILY Psyllium Husk [Daily Fiber] 2 tab PO DAILY Omeprazole [PriLOSEC] 20 mg PO DAILY Calcium Carbonate [Calcium] 500 mg PO DAILY Fluticasone Furoate [Arnuity Ellipta] 1 puff IH DAILY Melatonin 5 mg PO HS PRN PRN Reason: Sleep Furosemide [Lasix] 40 mg PO DAILY PRN PRN Reason: edema Albuterol Sulfate [Ventolin Hfa] 2 puff PO Q6H PRN PRN Reason: Shortness Of Breath Warfarin Sodium 2.5 mg PO DAILY@1999 predniSONE [PredniSONE] 10 mg PO DAILY Metoprolol XL (24 HR) Succ [Toprol Xl] 25 mg PO DAILY tab.er.24h Discontinued Sotalol [Betapace] 80 mg PO Q12HR #60 tablet Home Medications: Aspirin 81 mg PO DAILY 11/10/14 [History] Psyllium Husk [Daily Fiber] 2 tab PO DAILY 10/15/15 [History] Omeprazole [PriLOSEC] 20 mg PO DAILY 11/29/15 [History] Calcium Carbonate [Calcium] 500 mg PO DAILY 05/28/17 [History] Fluticasone Furoate [Arnuity Ellipta] 1 puff IH DAILY 05/28/17 [History] Melatonin 5 mg PO HS PRN 05/28/17 [History] Furosemide [Lasix] 40 mg PO DAILY PRN 07/26/17 [History] Albuterol Sulfate [Ventolin Hfa] 2 puff PO Q6H PRN 01/28/18 [History] Warfarin Sodium 2.5 mg PO DAILY@199904/14/18 [History] predniSONE [PredniSONE] 10 mg PO DAILY 04/14/18 [History] Metoprolol XL (24 HR) Succ [Toprol Xl] 25 mg PO DAILY tab.er.24h 04/17/18 [Rx] Sotalol [Betapace] 120 mg PO Q12HR 30 Days #60 tablet 04/26/18 [Rx] Allergies/Adverse Reactions: Allergy/AdvReac Type Severity Reaction Status Date / Time adhesive tape Allergy Hives Verified 01/28/18 11:45 Date of admission: 04/24/18 14:36 Primary care physician: Aleksandar Strickland DO Consults: 04/23/18 02:39 Consult to Cardiology [CONS] Routine Comment: Consulting Provider: Cardiology Sayra Reason for Consult: Atrial fibrillation with rapid ventricular response. Call Completed: No 04/23/18 11:03 Consult to Electrophysiology (EP) [CONS] Routine Consulting Provider: Electrophysiology Sayra Reason for Consult: A-fib/flutter Call Completed: Yes 04/23/18 12:52 Consult to PICC team [Consult to Invasive Line Access Team] [CONS] Routine Reason for Consult: limited access Line Type: EPIV 04/24/18 09:21 Consult to Nurse Navigator [CONS] Routine Comment: chf - Constitutional Vitals: Temp Pulse Resp BP Pulse Ox 97.4 F L 57 16 138/75 94 04/26/18 07:03 04/26/18 07:03 04/26/18 07:42 04/26/18 07:03 04/26/18 07:42 Exam: Vitals: Reviewed General: Obese, Alert and oriented x4. In no distress Cardiovascular: RRR, normal S1 & S2, no rubs, murmurs or gallops. Lungs: CTA b/l, no wheezes or crackles. Abdomen: Obese, soft, non-tender, no rigidity. Extremities: 1+ pitting edema. Neurological: Normal cognition. Rest of the physical exam is non contributory - Patient Status Disposition: Home, Self-Care Condition: Good Functional capacity at discharge: independent ambulation Overall status at discharge: patient is progressing back to baseline - Discharge Instructions Follow Up With: Aleksandar Strickland DO [Primary Care Provider] - 05/08/18 1:30 pm (Please follow up as schedule...) - Diet and Activity Activity: resume usual activities as tolerated, wear oxygen at all times (2 litters ) Diet: diabetic diet, low salt diet
[2018-04-26] MEDS ORDERED: *HR* Warfarin 1 MG TABLET PO ONE (18:00)
--- NOTE | 2018-04-27 19:54 | Electrocardiograph Report ---
[place] [address] Test Date: 2018-04-23 Pat Name: Erica Merida Department: 112 Room: 2A48 Gender: F Emr Specialist: : 1950 Requested By: Minesh Wyatt Order Number: [id number] Reading MD: Cameron Neri Measurements Intervals [place] Rate: 136 P: [place]: 0 QRS: 11 QRSD: 85 T: 37 QT: 301 QTc: 381 Interpretive Statements ATRIAL FIBRILLATION WITH RAPID VENTRICULAR RESPONSE NONSPECIFIC ST & T-WAVE ABNORMALITY Electronically Signed On 04-27-2018 19:52:32 EST by Cameron Neri
--- NOTE | 2018-04-27 20:05 | Electrocardiograph Report ---
[address] [place], [place] [address] Test Date: 2018-04-23 Pat Name: Erica Merida Department: 112 Room: 2A48 Gender: F Wash Driller Helper: : 1950 Requested By: Ulices Griffith Order Number: [id number] Reading MD: Cameron Neri Measurements Intervals [place] Rate: 73 P: [place]: 0 QRS: 30 QRSD: 94 T: 41 QT: 395 QTc: 421 Interpretive Statements Atrial flutter with 4:1 AV conduction Electronically Signed On 04-27-2018 20:03:52 EST by Cameron Neri
--- NOTE | 2018-04-27 20:20 | Electrocardiograph Report ---
[address] [place], [place] [address] Test Date: 2018-04-25 Pat Name: Erica Merida Department: 112 Room: 2A48 Gender: F Vp Analysis: : 1950 Requested By: Sundeep Leslie Order Number: [id number] Reading MD: Cameron Neri Measurements Intervals [place] Rate: 80 P: [place]: 0 QRS: 15 QRSD: 86 T: 25 QT: 418 QTc: 454 Interpretive Statements ATRIAL FIBRILLATION LOW QRS VOLTAGE IN PRECORDIAL LEADS Electronically Signed On 04-27-2018 20:18:13 EST by Cameron Neri
== END 2018-04-26 11:39 | disposition home or self-care (01) | DRG 308 ==
LOC: EMEROOARM 17:39 → 2ANU 17:39 → SUATTDRO 04-24 14:36
PROVIDERS: ADMIT Internal Medicine; ATTEND Internal Medicine

== ENCOUNTER 2018-09-03 17:42 | Inpatient (IN) ==
[2018-09-03] MEDS ORDERED: Aspirin 81 MG TAB.CHEW PO ONE (17:57)
--- NOTE | 2018-09-03 18:00 | Emergency Department Note ---
Disposition Clinical Impression: Atrial fibrillation Qualifiers: Atrial fibrillation type: paroxysmal Qualified Code(s): I48.0 - Paroxysmal atrial fibrillation Chest pain Qualifiers: Chest pain type: unspecified Qualified Code(s): R07.9 - Chest pain, unspecified Disposition: Admitted As Inpatient Condition: Fair Time of Disposition: 19:49 General Adult HPI - General Stated complaint: A-Fib Time Seen by Provider: 09/03/18 17:45 Source: patient Mode of arrival: ambulatory Limitations: no limitations Nursing Notes Reviewed: Yes Vital Signs Reviewed: Yes - History of Present Illness HPI Narrative: Patient is a 67-year-old female with past medical history of atrial fibrillation with history of ablation, CHF, diabetes, HLD and hypertension presents with complaint of mild 2/10 chest pain that is pressure-like has been going on since she woke up today. She denies any associated symptoms such as nausea, diaphoresis or dyspnea. - Related Data Home Medications Medication Instructions Recorded Confirmed Aspirin 81 mg PO DAILY 11/10/14 09/03/18 Omeprazole [PriLOSEC] 20 mg PO DAILY 11/29/15 09/03/18 Fluticasone Furoate [Arnuity 1 puff IH DAILY 05/28/17 09/03/18 Ellipta] Melatonin 5 mg PO HS PRN 05/28/17 09/03/18 Furosemide [Lasix] 40 mg PO DAILY PRN 07/26/17 09/03/18 Albuterol Sulfate [Ventolin Hfa] 2 puff PO Q6H PRN 01/28/18 09/03/18 Calcium Carbonate [Calcium] 600 mg PO DAILY 09/03/18 09/03/18 Citalopram Hydrobromide 10 mg PO DAILY 09/03/18 09/03/18 [Citalopram HBr] Loratadine [Allergy Relief] 10 mg PO DAILY 09/03/18 09/03/18 Metformin HCl [Fortamet] 1,000 mg PO QPM 09/03/18 09/03/18 Sotalol HCl [Betapace] 120 mg PO BID 09/03/18 09/03/18 Tizanidine HCl 4 mg PO DAILY PRN 09/03/18 09/03/18 Warfarin [Coumadin] 2.5 mg PO SUMOWETHFR 09/03/18 09/03/18 predniSONE [PredniSONE] 40 mg PO DAILY 09/03/18 09/03/18 Previous Rx's Medication Instructions Recorded Metoprolol XL (24 HR) Succ [Toprol 25 mg PO DAILY tab.er.24h 04/17/18 Xl] Allergies Allergy/AdvReac Type Severity Reaction Status Date / Time adhesive tape Allergy Hives Verified 01/28/18 11:45 All systems ED: reviewed and negative except as stated. Review of Systems: As Per HPI Constitutional: Denies: fever, chills Cardiovascular: Reports: chest pain. Denies: palpitations, dyspnea on exertion, orthopnea, edema, syncope, paroxysmal nocturnal dyspnea Respiratory: Denies: cough, dyspnea, wheezes Gastrointestinal: Denies: abdominal pain, nausea, vomiting Musculoskeletal: Denies: back pain, neck pain Past Medical History - Past Medical History Attestation: Yes The following information was validated with the patient. 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: no MATERIAL HANDLER LOADER history - Social History Smoking Status: Never smoker Smokeless Tobacco Status: No Alcohol use: Reports: none Drug use: Reports: none Physical Exam - General Limitations: no limitations - Head Head exam: atraumatic, normocephalic, normal inspection - Eye Eye exam: Present: normal appearance, PERRL, EOMI - ENT ENT exam: normal exam, normal oropharynx, mucous membranes moist - Neck Neck exam: Present: normal inspection, full ROM, trachea midline - Chest Chest inspection: Present: normal inspection, symmetric chest wall rise - Respiratory Respiratory exam: Present: normal lung sounds bilaterally - Cardiovascular Cardiovascular exam: Present: tachycardia, irregular rhythm, +S1, +S2 - Abdominal Exam Abdominal exam: Present: soft, Non-Tender. Absent: tenderness, distention, guarding, rebound, rigidity - Extremities Exam Extremities exam: Present: normal inspection, full ROM, normal capillary refill. Absent: tenderness, pedal edema - Expanded Lower Extremity Exam Hip/Pelvis exam: Present: normal inspection, full ROM. Absent: tenderness - Back Exam Back exam: Present: normal inspection, full ROM. Absent: tenderness - Neurological Exam Neurological exam: Present: alert, oriented X3 - Psychiatric Psychiatric exam: Present: normal affect, normal mood - Skin Skin exam: Present: warm, dry, intact, normal color Course Course Narrative: Patient is on Coumadin. She has a past medical history of paroxysmal atrial fibrillation which she underwent ablation 1 year ago and she has required MIKEY cardioversion in the past with the most recent being in April 2018. I trialed the patient on 10 mg of Cardizem which her heart rate improved to 120 from 150 for approximately 2-3 minutes and then return to the 150s. I discussed the patient's case with the child and family counselor on-call, Dr. Neri. I discussed that the patient's blood pressure is stable she is having a 2/10 chest pressure on the right. Discussed trial of Cardizem. Recommended trial of 5 mg of Lopressor 3 which patient had positive response to a heart rate of the 120s. She was placed on a Cardizem drip at the recommendation of the child and family counselor. She will need admission for further rate control and possibly MIKEY cardioversion tomorrow. - Reevaluation(s) Reevaluation #1: Patient accepted to the hospital by Dr. Veloz. Vital Signs Temperature 98.7 F 09/03/18 17:48 Pulse Rate 153 09/03/18 17:48 Respiratory Rate 20 09/03/18 17:48 Blood Pressure 163/99 09/03/18 17:48 O2 Sat by Pulse Oximetry 96 09/03/18 17:48 Temperature 98.2 F 09/03/18 20:44 Pulse Rate 116 09/03/18 20:44 Respiratory Rate 18 09/03/18 20:44 Blood Pressure 144/66 09/03/18 20:44 O2 Sat by Pulse Oximetry 99 09/03/18 20:44 Oxygen Delivery Oxygen Delivery Nasal Cannula Medical Decision Making - Medical Records Medical records reviewed: Yes I reviewed the patient's medical records. - Lab Data Lab results reviewed: Yes I reviewed the patient's lab results. Result diagrams: 09/03/18 18:11 09/03/18 18:10 Lab Results 09/03/18 09/03/18 09/03/18 Range/Units 18:10 18:11 18:11 WBC 8.7 (4.3-11.1) K/mcL RBC 3.62 L (3.82-4.97) M/mcL Hgb 9.6 L (11.5-15.4) g/dL Hct 32.6 L (35.3-44.9) % MCV 90.1 (83.0-100.0) fL MCH 26.5 L (28.0-33.3) pg MCHC 29.4 L (31.6-35.5) g/dL RDW 15.9 H (11.5-14.5) % Plt Count 327 (140-400) K/mcL MPV 8.9 L (9.4-12.4) fL Immature Gran % 1.7 (0-4) % Seg Neutrophils % 85.6 % Lymphocytes % 8.8 % Monocytes % 3.7 % Eosinophils % 0.0 % Basophils % 0.2 % Neutrophils # 7.4 (1.6-8.9) K/mcL Lymphocytes # 0.8 (0.6-4.6) K/mcL Monocytes # 0.3 (0.0-1.3) K/mcL Eosinophils # 0.0 (0.0-0.6) K/mcL Basophils # 0.0 (0.0-0.2) K/mcL Nucleated RBCs/100 WBC 0.2 H (0) /100 WBC PT 24.6 H (9.4-12.1) Seconds INR 2.2 APTT 32.4 (26.0-36.0) Seconds Sodium 143 (136-145) mEq/L Potassium 4.2 (3.5-5.1) mEq/L Chloride 102 (98-107) mEq/L Carbon Dioxide 30 H (23-29) mEq/L BUN 28 H (8-23) mg/dL Creatinine 0.61 (0.60-1.20) mg/dL Est GFR ( Amer) > 60 (> 60) Est GFR (Non-Af Amer) > 60 (> 60) BUN/Creatinine Ratio 46 H (6-26) Glucose 173 H (70-105) mg/dL Calculated Osmolality 306 H (280-300) Calcium 9.0 (8.6-10.3) mg/dL Magnesium 1.8 (1.6-2.6) mg/dL Troponin I < 0.03 (< 0.04) ng/mL - Radiology Data Radiology results reviewed: Yes I reviewed the patient's radiology results. Chest X-Ray 09/03/18 17:58 IMPRESSION: 1. Elevated right hemidiaphragm. No acute abnormality. Right basilar opacity is likely scarring or atelectasis. D/ / Quang Soni MD / Quang Soni MD Interpreting Provider: Quang Soni MD - EKG Data EKG #1 EKG attestation: Yes I reviewed and interpreted this EKG. EKG results narrative: EKG done at 18:52 shows atrial fibrillation a rate 1 29 bpm. No one axis. Intervals within normal limits. EKG #2 EKG attestation: Yes I reviewed and interpreted this EKG. EKG results narrative: EKG done at 18:52 shows atrial fibrillation a rate 1 29 bpm. No one axis. Intervals within normal limits. EKG #3 EKG attestation: Yes I reviewed and interpreted this EKG. EKG results narrative: EKG done at 18:52 shows atrial fibrillation a rate 1 29 bpm. No one axis. Intervals within normal limits.
[2018-09-03 18:32] LABS: Basophils % 0.2 %; Hematocrit 32.6 % (35.3-44.9); Hemoglobin 9.6 g/dL (11.5-15.4); Immature Granulocytes % 1.7 % (0-4); Lymphocytes # 0.8 K/mcL (0.6-4.6); Lymphocytes % 8.8 %; Mean Corpuscular HGB Conc 29.4 g/dL (31.6-35.5); Mean Corpuscular Hemoglobin 26.5 pg (28.0-33.3); Mean Corpuscular Volume 90.1 fL (83.0-100.0); Mean Platelet Volume 8.9 fL (9.4-12.4); Monocytes # 0.3 K/mcL (0.0-1.3); Monocytes % 3.7 %; Neutrophils # 7.4 K/mcL (1.6-8.9); Nucleated Red Blood Cells 0.2 /100 WBC (0); Platelet Count 327 K/mcL (140-400); Red Blood Count 3.62 M/mcL (3.82-4.97); Red Cell Distribution Width 15.9 % (11.5-14.5); Segmented Neutrophils % 85.6 %; White Blood Count 8.7 K/mcL (4.3-11.1)
[2018-09-03 18:41] LABS: INR 2.2; Prothrombin Time 24.6 Seconds (9.4-12.1)
[2018-09-03] MEDS: *HR* Metoprolol 5 MG/5 ML VIAL IVP PRN ×4 (18:43→21:09)
[2018-09-03 18:44] LABS: Activated Partial Thrombo Time 32.4 Seconds (26.0-36.0)
[2018-09-03 19:32] LABS: BUN/Creatinine Ratio 46 (6-26); Blood Urea Nitrogen 28 mg/dL (8-23); Carbon Dioxide 30 mEq/L (23-29); Chloride 102 mEq/L (98-107); Glucose 173 mg/dL (70-105); Osmolality,Calculated 306 (280-300); Potassium 4.2 mEq/L (3.5-5.1); Sodium 143 mEq/L (136-145); Troponin I < 0.03 ng/mL (< 0.04); eGFR For African Americans > 60 (> 60); eGFR For Non-African Americans > 60 (> 60)
--- NOTE | 2018-09-03 19:46 | Emergency Department Note ---
Disposition Clinical Impression: Atrial fibrillation Qualifiers: Atrial fibrillation type: paroxysmal Qualified Code(s): I48.0 - Paroxysmal atrial fibrillation Chest pain Qualifiers: Chest pain type: unspecified Qualified Code(s): R07.9 - Chest pain, unspecified Disposition: Admitted As Inpatient Condition: Fair Instructions: Atrial Fibrillation (ED) Referrals: Aleksandar Strickland DO [Primary Care Provider] - Time of Disposition: 19:46 General Adult HPI - General Chief complaint: ED Arrhythmia/Palpitations Stated complaint: A-Fib Time Seen by Provider: 09/03/18 17:45 Source: patient Mode of arrival: ambulatory Limitations: no limitations - History of Present Illness Pain Scale: 2 - Related Data Home Medications Medication Instructions Recorded Confirmed Aspirin 81 mg PO DAILY 11/10/14 09/03/18 Omeprazole [PriLOSEC] 20 mg PO DAILY 11/29/15 09/03/18 Fluticasone Furoate [Arnuity 1 puff IH DAILY 05/28/17 09/03/18 Ellipta] Melatonin 5 mg PO HS PRN 05/28/17 09/03/18 Furosemide [Lasix] 40 mg PO DAILY PRN 07/26/17 09/03/18 Albuterol Sulfate [Ventolin Hfa] 2 puff PO Q6H PRN 01/28/18 09/03/18 Calcium Carbonate [Calcium] 600 mg PO DAILY 09/03/18 09/03/18 Citalopram Hydrobromide 10 mg PO DAILY 09/03/18 09/03/18 [Citalopram HBr] Loratadine [Allergy Relief] 10 mg PO DAILY 09/03/18 09/03/18 Metformin HCl [Fortamet] 1,000 mg PO QPM 09/03/18 09/03/18 Sotalol HCl [Betapace] 120 mg PO BID 09/03/18 09/03/18 Tizanidine HCl 4 mg PO DAILY PRN 09/03/18 09/03/18 Warfarin [Coumadin] 2.5 mg PO SUMOWETHFR 09/03/18 09/03/18 predniSONE [PredniSONE] 40 mg PO DAILY 09/03/18 09/03/18 Previous Rx's Medication Instructions Recorded Metoprolol XL (24 HR) Succ [Toprol 25 mg PO DAILY tab.er.24h 04/17/18 Xl] Allergies Allergy/AdvReac Type Severity Reaction Status Date / Time adhesive tape Allergy Hives Verified 01/28/18 11:45 Constitutional: Denies: fever, chills Cardiovascular: Reports: chest pain. 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 - Social History Smoking Status: Never smoker Smokeless Tobacco Status: No Alcohol use: Reports: none Drug use: Reports: none Physical Exam - General Limitations: no limitations General appearance: alert, in no apparent distress Course Vital Signs Temperature 98.7 F 09/03/18 17:48 Pulse Rate 153 09/03/18 17:48 Respiratory Rate 20 09/03/18 17:48 Blood Pressure 163/99 09/03/18 17:48 O2 Sat by Pulse Oximetry 96 09/03/18 17:48 Temperature 98.7 F 09/03/18 17:48 Pulse Rate 123 09/03/18 18:49 Respiratory Rate 20 09/03/18 17:48 Blood Pressure 155/81 09/03/18 18:45 O2 Sat by Pulse Oximetry 100 09/03/18 17:49 Oxygen Delivery Oxygen Delivery Nasal Cannula Medical Decision Making - Lab Data Result diagrams: 09/03/18 18:11 09/03/18 18:10 Lab Results 09/03/18 09/03/18 09/03/18 Range/Units 18:10 18:11 18:11 WBC 8.7 (4.3-11.1) K/mcL RBC 3.62 L (3.82-4.97) M/mcL Hgb 9.6 L (11.5-15.4) g/dL Hct 32.6 L (35.3-44.9) % MCV 90.1 (83.0-100.0) fL MCH 26.5 L (28.0-33.3) pg MCHC 29.4 L (31.6-35.5) g/dL RDW 15.9 H (11.5-14.5) % Plt Count 327 (140-400) K/mcL MPV 8.9 L (9.4-12.4) fL Immature Gran % 1.7 (0-4) % Seg Neutrophils % 85.6 % Lymphocytes % 8.8 % Monocytes % 3.7 % Eosinophils % 0.0 % Basophils % 0.2 % Neutrophils # 7.4 (1.6-8.9) K/mcL Lymphocytes # 0.8 (0.6-4.6) K/mcL Monocytes # 0.3 (0.0-1.3) K/mcL Eosinophils # 0.0 (0.0-0.6) K/mcL Basophils # 0.0 (0.0-0.2) K/mcL Nucleated RBCs/100 WBC 0.2 H (0) /100 WBC PT 24.6 H (9.4-12.1) Seconds INR 2.2 APTT 32.4 (26.0-36.0) Seconds Sodium 143 (136-145) mEq/L Potassium 4.2 (3.5-5.1) mEq/L Chloride 102 (98-107) mEq/L Carbon Dioxide 30 H (23-29) mEq/L BUN 28 H (8-23) mg/dL Creatinine 0.61 (0.60-1.20) mg/dL Est GFR ( Amer) > 60 (> 60) Est GFR (Non-Af Amer) > 60 (> 60) BUN/Creatinine Ratio 46 H (6-26) Glucose 173 H (70-105) mg/dL Calculated Osmolality 306 H (280-300) Calcium 9.0 (8.6-10.3) mg/dL Troponin I < 0.03 (< 0.04) ng/mL Attestation Statement - Attestation Attestation: I reviewed the residents documentation and agree with the residents assessment and plan of care. I have personally had face to face time with the patient. (Brief History, Brief Exam, and MDM) I personally supervised and was present for the mathis/critical portions of the following procedures completed by the resident: EKG 67 year old female presents to the eD with complaints of tachycardia and has presented with high heart rate in the past. [place] has required cardioversion in the past as inpatient. We have discussed case with cards and they recommend three doses of lopressor and then start on cardizem drip. Ervin will be amidtted to medicine her heart rate has improved from 150 to 120s. Does not recommend cardioversion in the ED becuse they would like ot do a MIKEY in the morning for further evlaution
--- NOTE | 2018-09-03 19:50 | Internal Med History&Physical ---
<Sylvester Tirado - Last Filed: 09/03/18 20:46> Date of Encounter: 09/03/18 Time of Encounter: 20:46 Internal Medicine - H&P: HPI Chief complaint: high Heart rate Admitted From: Emergency Dept Plans for Post Hospital Care: Home History of present illness: Ms. Merida is a 67 year old female with past medical history of hypertension, hyperlipidemia, paroxysmal atrial fibrillation, diabetes, asthma, CHF presents emergency department with complaint of high heart rate. Patient states that she had a visit from a home health nurse this morning who noted that her heart rate was in the 150s and was persistently elevated. She does follow with a steel manager and has had multiple hospital visits for rapid ventricular response. She is currently on metoprolol and sotalol in addition to Coumadin for anticoagulation. She has had multiple cardioversions, she believes it to be about 6, most recently in April 2018. She is reportedly failed multiple antiarrhythmics including Rythmol, amiodarone. Patient states that currently she is experiencing no symptoms of fevers, chills, chest pains, difficulty breathing outside at baseline, nausea, vomiting, abdominal pain, urinary symptoms, changes in bowel movements. She does have chronic bilateral lower extremity lymphedema. She does state that she was recently treated for a upper respiratory tract infection with Levaquin, completing course of treatment yesterday. She does get occasional bouts of chest pain located on the left side of her chest and describes them as sharp in nature. They are nonexertional and she is minimally active at baseline. Upon arrival to the emergency room, vital signs were significant for heart rate of 153, respiratory rate 20, blood pressure stable at 163/99. Chest x-ray was obtained and showed elevated right hemidiaphragm and right basilar opacity is likely scarring or atelectasis. Laboratory results were obtained and showed a baseline anemia with hemoglobin of 9.6, therapeutic INR 2.2, bicarbonate of 30, negative troponin and magnesium of 1.8. Potassium was within normal limits at 4.2. Cardiology was consult emergency department who recommended continuation of home sotalol, trial of metoprolol 5 mg 3 followed by Cardizem drip as blood pressure allows. Cardiology will consider additional cardioversion tomorrow morning. Upon time of my interview, patient continues to be asymptomatic. Her heart rate is now improved to the 110s to 130s. She is no other concerns at this time. Past medical history: Paroxysmal atrial fibrillation with loop recorder on Coumadin, hypertension, hyperlipidemia, diabetes, asthma, heart failure with preserved ejection fraction, interstitial pneumonitis status post lobectomy. Past surgical history: Hysterectomy, lobectomy, mastectomy Social history: Denies tobacco, alcohol, drug use Family history: Cardiac disease in parents, breast cancer Past Med Surg Social Fam HX - Past Medical History Medical history: asthma, atrial fibrillation, CHF, diabetes, hyperlipidemia, hypertension, TIA, other Additional medical history: Neuropathy Psychiatric history: no psych history - Past Surgical History Surgical History: breast surgery, cancer surgery, hysterectomy Additional surgical history: breast reconstrution - Social History Smoking Status: Never smoker Smokeless Tobacco Status: No Alcohol use: none Drug use: none - Family History Father Family Member Ethnicity: Non- Living Status: Hx Family Cardiac Disorders: Yes (hypertension) Hx Family Respiratory Disorders: No Hx Family Cancer: No Hx Family GI Disorders: No Hx Family Endocrine Disorder: Yes (diabetes) Hx Family Neuromuscular Disorders: No Hx Family Neurologic Disorders: No Hx Family HEENT Disorders: No Hx Family Autoimmune Disorders: No Mother Adopted: No Family Member Ethnicity: Non- Living Status: Still Living Hx Family Cardiac Disorders: Yes (Afib) Hx Family Respiratory Disorders: No Hx Family Cancer: Yes (Colon) Hx Family GI Disorders: Yes (Cancer) Hx Family Endocrine Disorder: Yes Hx Family Neuromuscular Disorders: Yes (Stroke 2016) Hx Family Neurologic Disorders: No Hx Family HEENT Disorders: No Hx Family Autoimmune Disorders: No Internal Medicine - H&P: Meds Aspirin 81 mg PO DAILY 11/10/14 [History] Omeprazole [PriLOSEC] 20 mg PO DAILY 11/29/15 [History] Fluticasone Furoate [Arnuity Ellipta] 1 puff IH DAILY 05/28/17 [History] Melatonin 5 mg PO HS PRN 05/28/17 [History] Furosemide [Lasix] 40 mg PO DAILY PRN 07/26/17 [History] Albuterol Sulfate [Ventolin Hfa] 2 puff PO Q6H PRN 01/28/18 [History] Metoprolol XL (24 HR) Succ [Toprol Xl] 25 mg PO DAILY tab.er.24h 04/17/18 [Rx] Calcium Carbonate [Calcium] 600 mg PO DAILY 09/03/18 [History] Citalopram Hydrobromide [Citalopram HBr] 10 mg PO DAILY 09/03/18 [History] Loratadine [Allergy Relief] 10 mg PO DAILY 09/03/18 [History] Metformin HCl [Fortamet] 1,000 mg PO QPM 09/03/18 [History] Sotalol HCl [Betapace] 120 mg PO BID 09/03/18 [History] Tizanidine HCl 4 mg PO DAILY PRN 09/03/18 [History] Warfarin [Coumadin] 2.5 mg PO SUMOWETHFR 09/03/18 [History] predniSONE [PredniSONE] 40 mg PO DAILY 09/03/18 [History] Allergy/AdvReac Type Severity Reaction Status Date / Time adhesive tape Allergy Hives Verified 01/28/18 11:45 All Systems PM: A 10-system review of systems was performed and is negative for pertinent findings except as documented above in the HPI. Review of systems: - Constitutional: Denies fevers, chills, weight loss, generalized fatigue - Head/Neck: Denies HENRIQUEZ, neck stiffness - EENT: Denies vision changes/blurriness. Admits to rhinorrhea, congestion - CVS: Denies chest pain, palpitations, VILLAGRAN, orthopnea, PND. Admits to edema - Pulm: Denies SOB outside at baseline, cough, sputum, hematemesis, wheezing - GI: Denies abdominal pain, anorexia, nausea, vomiting, diarrhea, constipation, melena - : Denies dysuria, increased frequency, urgency, hematuria, - MSK: Denies joint pain, limited ROM - Skin: Denies rashes, ulcers, color changes, - Neuro: Denies HENRIQUEZ, paresthesias, focal deficits, ataxia, - Constitutional Vitals: Temp Pulse Resp BP Pulse Ox 98.7 F 123 20 155/81 100 09/03/18 17:48 09/03/18 18:49 09/03/18 17:48 09/03/18 18:45 09/03/18 17:49 Exam: Gen.: Vitals noted. No acute distress. AAOx3, resting comfortably in bed. Obese HEENT: PERRL/EOMI, oropharynx clear, Normocephalic, atraumatic, MMM Cardiac: Irregularly irregular rhythm, tachycardic, no murmur, +S1/S2, 3+ BLE edema, worse on left Pulmonary: Absent breath sounds in bases particularly on right, equal chest expansion, unlabored breathing Abdomen: soft, nontender, BS noted, no guarding, no palpable HSM Skin: warm and dry, no visible lesions. MSK: ROM assessed, no joint swelling noted, gait no assessed while in bed. Non tender calf or clubbing Neuro: A&Ox3, moves all extremities, no focal deficits, sensation intact Psych: Appropriate mood and behavior, AOx3 Internal Med - H&P Results - Labs CBC & Chem 7: 09/03/18 18:11 09/03/18 18:10 Labs: Short CBC 09/03/18 Range/Units 18:11 WBC 8.7 (4.3-11.1) K/mcL Hgb 9.6 L (11.5-15.4) g/dL Hct 32.6 L (35.3-44.9) % Plt Count 327 (140-400) K/mcL Neutrophils # 7.4 (1.6-8.9) K/mcL BMP 09/03/18 18:10 Sodium 143 Potassium 4.2 Chloride 102 Carbon Dioxide 30 H BUN 28 H Creatinine 0.61 Glucose 173 H Calcium 9.0 Cardiac Enzymes 09/03/18 Range/Units 18:10 Troponin I < 0.03 (< 0.04) ng/mL - Impressions ITS Impressions Chest X-Ray 09/03/18 17:58 IMPRESSION: 1. Elevated right hemidiaphragm. No acute abnormality. Right basilar opacity is likely scarring or atelectasis. D/ / Quang Soni MD / Quang Soni MD Interpreting Provider: Quang Soni MD - Assessment and Plan (1) Atrial fibrillation with rapid ventricular response Current Visit: Yes Status: Chronic Assessment and plan: - Known history of difficult to control paroxysmal atrial fibrillation - Heart rate currently improved in the 110s to 130s - Status post ablation as well as cardioversion 6 - Most recent cardioversion in April 2018 - Home medications include metoprolol XL 25 mg, sotalol 120 mg twice a day - Anticoagulated on Coumadin, INR therapeutic upon presentation at 2.2 - Exacerbating factor unclear but may be a result of her chronic lung disease, recent URI - Patient has most recent echocardiogram of December 2017 showing EF of 60-65%, mild LVH, moderate diastolic dysfunction, moderate pulmonary hypertension - Lower suspicion of ischemic etiology given no significant EKG changes and negative troponin Plan - Cardiology has been consult in the emergency room the patient tomorrow - Per cardiology recommendations, will continue sotalol, metoprolol, Coumadin - Continue Cardizem drip - Continue Coumadin, pharmacy to dose - We will replenish magnesium with 2 g, most recent 1.8 - TSH with morning labs, trend troponin (2) HTN (hypertension) Current Visit: Yes Status: Chronic Assessment and plan: - Mildly elevated on admission - We will continue home metoprolol and Cardizem drip as above Qualifiers: Hypertension type: essential hypertension Qualified Code(s): I10 - E ssential (primary) hypertension (3) HLD (hyperlipidemia) Current Visit: Yes Status: Chronic Assessment and plan: Chronic issue, not on home statin Consider as outpatient Qualifiers: Hyperlipidemia type: unspecified Qualified Code(s): E78.5 - Hyperlipidemia, unspecified (4) CHF (congestive heart failure) Current Visit: Yes Status: Chronic Assessment and plan: - Known history of diastolic heart failure with EF of 60-65% in December 2017 - Does not appear to be acute exacerbation - Suspect that bilateral lower extremity edema is chronic - Continue home Lasix, beta brent, aspirin Qualifiers: Heart failure type: diastolic Heart failure chronicity: chronic Qualified Code(s): I50.32 - Chronic diastolic (congestive) heart failure (5) Anemia Current Visit: Yes Status: Chronic Assessment and plan: - H/H stable at 9.6/32.6 - Baseline hemoglobin appears to be between 7 and 10 - No signs or symptoms of bleeding on Coumadin - Unlikely cause of RVR - We will continue monitor with daily labs Qualifiers: Anemia type: unspecified type Qualified Code(s): D64.9 - Anemia, unspecified (6) Interstitial lung disease Current Visit: Yes Status: Chronic Assessment and plan: - Per outpatient pulmonology notes, patient has a diagnosis of unspecified interstitial pneumonitis - She is oxygen dependent at home at 2 L, currently requiring home dose - She is status post lobectomy of the right lower lobe - Currently has no complaints of shortness of breath. - Treat continue management as outpatient (7) Chronic respiratory failure Current Visit: Yes Status: Chronic Assessment and plan: As above Qualifiers: Respiratory failure complication: unspecified whether with hypoxia or hypercapnia Qualified Code(s): J96.10 - Chronic respiratory failure, unspecified whether with hypoxia or hypercapnia (8) Type II diabetes mellitus Current Visit: Yes Status: Chronic Assessment and plan: - Known history of type 2 diabetes - Most recent hemoglobin A1c of 8.1% on 07/10/18 - Patient is also on chronic steroids for interstitial pneumonitis - Blood sugar on presentation of 173 - We will give ADA diet, sliding scale insulin Qualifiers: Diabetes mellitus intermediate frame tender insulin use: without shelter use Diabetes mellitus complication status: without complication Qualified Code(s): E11.9 - Type 2 diabetes mellitus without complications (9) DVT prophylaxis Current Visit: Yes Status: Acute Assessment and plan: Continue Coumadin, pharmacy to dose - Time Spent With Patient Total time spent is greater than 50% in coordination of care (as documented) at patient's floor/unit and/or counseling patient: <Danilo Livingston - Last Filed: 09/03/18 23:22> Date of Encounter: 09/03/18 Time of Encounter: 21:45 - Constitutional Constitutional: no chills, no fever(s) - EENT Eyes: no blurry vision, no change in vision Ears: no tinnitus Nose, mouth and throat: no sore throat - Cardiovascular Cardiovascular ROS IM: irregular heart rhythm, palpitations, no chest pain, no dyspnea, no dyspnea on exertion - Respiratory Respiratory: no cough, no hemoptysis, no chest congestion, no excessive phlegm production - Gastrointestinal Gastrointestinal: no abdominal pain, no diarrhea, no vomiting - Genitourinary Genitourinary: no dysuria, no flank pain - Musculoskeletal Musculoskeletal ROS IM: no arthralgias, no back pain - Integumentary Integumentary IM: no rash, no jaundice - Neurological Neurological ROS: no disequilibrium, no dizziness, no focal weakness - Psychiatric Psychiatric: no anxiety, no depression - Endocrine Endocrine IM: no polydipsia, no polyuria - Allergic/Immunologic Allergic/Immunologic: no GI upset with certain foods - Constitutional Vitals: Temp Pulse Resp BP Pulse Ox 98.2 F 116 18 144/66 99 09/03/18 20:44 09/03/18 20:44 09/03/18 20:44 09/03/18 20:44 09/03/18 20:44 General appearance: Present: cooperative, A&O X 3, pleasant, no acute distress - Head Head exam: Present: normal inspection - Eye Eye exam: Present: EOMI, PERRL. Absent: scleral icterus Pupils: Present: normal accommodation - ENT ENT exam: Present: mucous membranes dry, normal exam, normal oropharynx - Neck Neck exam general surgery: Present: full ROM, supple, trachea midline. Absent: tenderness, nuchal rigidity, thyromegaly - Respiratory Respiratory exam: Present: decreased breath sounds, rhonchi. Absent: chest wall tenderness, rales, respiratory distress, wheezes - Cardiovascular Cardiovascular exam: Present: RRR, +S1, +S2, systolic murmur. Absent: diastolic murmur, tachycardia Additional comments: during my exam, HR was 80's and appears to be regular - GI/Abdominal GI/Abdominal exam: Present: normal bowel sounds, soft. Absent: hepatomegaly, mass, splenomegaly, tenderness - Extremities Exam Extremities exam: Present: normal capillary refill, pedal edema, warm, radial pulses palpable and symmetrical. Absent: calf tenderness, tenderness - Back Exam Back exam: Absent: CVA tenderness (L), CVA tenderness (R) - Neurological Exam Neurological exam: Present: alert, CN II-XII intact, no focal deficits, strengths equal and symetr throughout - Psychiatric Psychiatric exam: Present: normal affect, normal mood - Skin Skin exam: Present: dry, intact, warm Internal Med - H&P Results - Labs CBC & Chem 7: 09/03/18 18:11 09/03/18 18:10 Labs: Short CBC 09/03/18 Range/Units 18:11 WBC 8.7 (4.3-11.1) K/mcL Hgb 9.6 L (11.5-15.4) g/dL Hct 32.6 L (35.3-44.9) % Plt Count 327 (140-400) K/mcL Neutrophils # 7.4 (1.6-8.9) K/mcL BMP 09/03/18 18:10 Sodium 143 Potassium 4.2 Chloride 102 Carbon Dioxide 30 H BUN 28 H Creatinine 0.61 Glucose 173 H Calcium 9.0 Cardiac Enzymes 09/03/18 Range/Units 18:10 Troponin I < 0.03 (< 0.04) ng/mL - Impressions ITS Impressions Chest X-Ray 09/03/18 17:58 IMPRESSION: 1. Elevated right hemidiaphragm. No acute abnormality. Right basilar opacity is likely scarring or atelectasis. D/ / Quang Soni MD / Quang Soni MD Interpreting Provider: Quang Soni MD - Time Spent With Patient Total time spent is greater than 50% in coordination of care (as documented) at patient's floor/unit and/or counseling patient: - Attending Attestation I discussed the patient ALGAACIQ, past medical history, review of systems, lab data, imaging data, and exam findings with Dr. Tirado. I then saw and examined patient independently as well. She presented with uncontrolled atrial fibrillation/flutter with rapid ventricular response. She has been cardioverted multiple times in the past and has had prior ablation without success. She is currently maintained on sotalol antiarrhythmic as well as beta blockade with Toprol-XL. She was tarted on Cardizem drip in the ER as advised by cardiology. She was then admitted to hospitalist group. When I saw her during my exam and interview, she appeared to be rate controlled with heart rate in the 80s. On further auscultation, she appeared to be in regular rhythm and rate. I th erefore requested an EKG to be obtained at that moment by the nursing staff. Presently, she feels well and has no complaints. She did complain of having some palpitations, irregular heart rhythm, and some vague chest tightness earlier. Both symptoms have all resolved and she has no complaints at this time. We will maintain her on Cardizem drip for tonight and maintain her heart rate per protocol. She will continue her home medications and consultation will be made by steel manager in the morning. If she has uncontrolled rhythm, she may be candidate for MIKEY guided cardioversion. Other than my comments above and documented exam findings, I agree with Dr. Tirado's assessment and plan.
[2018-09-03 20:04] LABS: Magnesium 1.8 mg/dL (1.6-2.6)
[2018-09-03] MEDS ORDERED: Naloxone 0.4 MG/ML INJ IVP PRN (20:15)
[2018-09-03] MEDS ORDERED: Acetaminophen 325 MG TABLET PO PRN (20:15)
[2018-09-03] MEDS ORDERED: Ondansetron 4 MG/2 ML VIAL IVP PRN (20:15)
[2018-09-03] MEDS ORDERED: Furosemide 40 MG TABLET PO PRN (20:19)
[2018-09-03] MEDS ORDERED: tiZANidine 4 MG TABLET PO PRN (20:19)
[2018-09-03] MEDS ORDERED: Dextrose Gel 15 GM/37.5 ML TUBE PO PRN ×2 (20:20)
[2018-09-03] MEDS ORDERED: D5% in Water 1,000 ML IVC PRN (20:20)
[2018-09-03] MEDS ORDERED: *HR* Dextrose 50 % in Water (Syg) 50 ML SYRINGE IVP PRN (20:20)
[2018-09-03] MEDS: Insulin LISPRO 300 UNITS/3 ML VIAL SQ SCH (21:12)
[2018-09-04] MEDS: *HR* Metoprolol 5 MG/5 ML VIAL IVP PRN ×2 (05:58→14:56)
[2018-09-04 06:43] LABS: Basophils % 0.2 %; Lymphocytes % 21.2 %; Red Cell Distribution Width 15.9 % (11.5-14.5)
[2018-09-04 06:45] LABS: Eosinophils % 0.5 %; Hematocrit 29.1 % (35.3-44.9); Hemoglobin 8.5 g/dL (11.5-15.4); Immature Granulocytes % 1.6 % (0-4); Lymphocytes # 1.3 K/mcL (0.6-4.6); Mean Corpuscular HGB Conc 29.2 g/dL (31.6-35.5); Mean Corpuscular Hemoglobin 26.3 pg (28.0-33.3); Mean Corpuscular Volume 90.1 fL (83.0-100.0); Mean Platelet Volume 9.3 fL (9.4-12.4); Monocytes # 0.5 K/mcL (0.0-1.3); Monocytes % 8.5 %; Neutrophils # 4.2 K/mcL (1.6-8.9); Platelet Count 284 K/mcL (140-400); Red Blood Count 3.23 M/mcL (3.82-4.97); White Blood Count 6.2 K/mcL (4.3-11.1)
[2018-09-04 06:49] LABS: INR 2.1; Prothrombin Time 23.8 Seconds (9.4-12.1)
[2018-09-04 07:10] LABS: Chol/HDL Ratio 4.3 (0-4.9); Magnesium 2.2 mg/dL (1.6-2.6)
[2018-09-04 07:17] LABS: Anisocytosis 1+ (Not Present); Platelet Estimate Normal (Normal); Thyroid Stimulating Hormone 1.03 mcIU/mL (0.340-5.600)
[2018-09-04] MEDS: Insulin LISPRO 300 UNITS/3 ML VIAL SQ SCH ×4 (08:07→21:03)
[2018-09-04] MEDS: Aspirin 81 MG TAB.CHEW PO SCH (08:12)
[2018-09-04] MEDS: predniSONE 20 MG TABLET PO SCH (08:12)
[2018-09-04] MEDS ORDERED: (Fluticasone Furoate [Arnuity Ellipta] 1 PUFF) IH SCH (09:00)
--- NOTE | 2018-09-04 10:03 | Cardiology Consult Note ---
Date of Encounter: 09/04/18 Time of Encounter: 09:00 Assessment and Plan (1) Atrial fibrillation Current Visit: Yes Status: Chronic Long standing hx of PAF s/p multiple failed antiarrhythmics, DCCV, and hx of cryoablation in June 2017. s/p MIKEY guided DCCV 04/25/18-reports has maintained NSR until recent; however patient was asymptomatic when HR noted to be elevated >150. Presented in [place] with RVR; On sotalol 120 mg q12H and Toprol XL 25 mg da trisha. Cardizem gtt d/c'ed. ECG's reviewed with Dr. Arcos; appears to be 2:1 aflutter. Given complex hx of PAF, recommend EP consult. Anticoagulated on Coumadin; INR therapuetic. Anemia noted, however H/H stable. No abnormal or unusual bleeding reported. Qualifiers: Atrial fibrillation type: paroxysmal Qualified Code(s): I48.0 - Paroxysmal atrial fibrillation (2) CHF (congestive heart failure) Current Visit: Yes Status: Chronic Hx of chronic diastolic CHF. Most recent TTE 12/30/17: LVEF 60-65%, moderate LVDD, normal RV structure and function, mild-moderate TR, moderate PH, normal wall motion. Significant volume overload upon exam, appears to be anasarca. Weight actually down from last outpt OV by 2 lbs. Bilateral LE wrapped in kerlix (seeping) and MOSHE bandages. Chronic steroid use likely contributing to fluid retention. Also reports diet high in sodium. CHF teaching discussed including importance of Na and fluid restricted diet. Qualifiers: Heart failure type: diastolic Heart failure chronicity: chronic Qualified Code(s): I50.32 - Chronic diastolic (congestive) heart failure Discussion w patient/family: The assessment and plan as outlined above was discussed with the patient and/or family members who expressed understanding and agreement. All questions were answered. Thank you for involving us in the care of your patient. Please call with any questions. The patient will be discussed and reviewed with Dr. Arcos; changes to be made accordingly. History of Present Illness Consult date: 09/04/18 Requesting physician: Sylvester Tirado Consult reason: Afib Chief complaint: Afib History of present illness: Ms. Merida is a 67 year old female with PMHx significant of PAF s/p c ryoablation in June 2017, HTN, diastolic CHF, and TIA who presented to the ED as recommended by Home care nurse due to elevated HR >150. Recent right sided wedge resection of upper and middle lobes. She denies symptoms prior to admission aside from baseline generalized edema and shortness of breath. No palpitations, chest pain/pressure, or dizziness reported. She reports she did not know she was in afib. Denies missed doses of sotalol or betablockers. She has a longstanding hx of PAF and has failed multiple antiarrhythmics, she underwent Cryo ablation in June 2017, s/p DCCV 07/26/17. Loop recorder implanted 12/2017 d/t concern of bradycardia and palpitations, loop interrogation 01/13/18 was without events. She is on Sotalol 80mg BID and anticoagulated on Coumadin. Recent CV testing: MIKEY guided DCCV 04/25/18: successful conversion to NSR; negative for thrombus. TTE 12/30/17: LVEF 60-65%, mild cLVH, moderate LVDD, mild-moderate TR, moderate PH, normall wall motion Loop implant 12/12/17 DCCV 07/26/17: successful conversion to NSR Cryo ablation June 2017 [facility] 10/18/15: minimal, non-obstructive CAD Past Med Surg Social Fam HX - Past Medical History Attestation: Yes The following information was validated with the patient. Source: patient Medical history: asthma, atrial fibrillation, CHF, diabetes, hyperlipidemia, hypertension, TIA, other Additional medical history: Neuropathy Psychiatric history: no psych history - Past Surgical History Surgical History: breast surgery, cancer surgery, hysterectomy Additional surgical history: breast reconstrution - Social History Smoking Status: Never smoker Smokeless Tobacco Status: No Alcohol use: none Drug use: none - Family History Father Family Member Ethnicity: Non- Living Status: Hx Family Cardiac Disorders: Yes (hypertension) Hx Family Respiratory Disorders: No Hx Family Cancer: No Hx Family GI Disorders: No Hx Family Endocrine Disorder: Yes (diabetes) Hx Family Neuromuscular Disorders: No Hx Family Neurologic Disorders: No Hx Family HEENT Disorders: No Hx Family Autoimmune Disorders: No Mother Adopted: No Family Member Ethnicity: Non- Living Status: Still Living Hx Family Cardiac Disorders: Yes (Afib) Hx Family Respiratory Disorders: No Hx Family Cancer: Yes (Colon) Hx Family GI Disorders: Yes (Cancer) Hx Family Endocrine Disorder: Yes Hx Family Neuromuscular Disorders: Yes (Stroke 2016) Hx Family Neurologic Disorders: No Hx Family HEENT Disorders: No Hx Family Autoimmune Disorders: No Medications and Allergies Aspirin 81 mg PO DAILY 11/10/14 [History] Omeprazole [PriLOSEC] 20 mg PO DAILY 11/29/15 [History] Fluticasone Furoate [Arnuity Ellipta] 1 puff IH DAILY 05/28/17 [History] Melatonin 5 mg PO HS PRN 05/28/17 [History] Furosemide [Lasix] 40 mg PO DAILY PRN 07/26/17 [History] Albuterol Sulfate [Ventolin Hfa] 2 puff PO Q6H PRN 01/28/18 [History] Metoprolol XL (24 HR) Succ [Toprol Xl] 25 mg PO DAILY tab.er.24h 04/17/18 [Rx] Calcium Carbonate [Calcium] 600 mg PO DAILY 09/03/18 [History] Citalopram Hydrobromide [Citalopram HBr] 10 mg PO DAILY 09/03/18 [History] Loratadine [Allergy Relief] 10 mg PO DAILY 09/03/18 [History] Metformin HCl [Fortamet] 1,000 mg PO QPM 09/03/18 [History] Sotalol HCl [Betapace] 120 mg PO BID 09/03/18 [History] Tizanidine HCl 4 mg PO DAILY PRN 09/03/18 [History] Warfarin [Coumadin] 2.5 mg PO SUMOWETHFR 09/03/18 [History] predniSONE [PredniSONE] 40 mg PO DAILY 09/03/18 [History] Allergy/AdvReac Type Severity Reaction Status Date / Time adhesive tape Allergy Hives Verified 01/28/18 11:45 All Systems Review: The remainder of the systems were reviewed and are negative - Cardiovascular Cardiovascular: as per HPI Physical Examination Vital Signs, Last 4 Hours Temp Pulse Resp BP Pulse Ox 09/04/18 07:22 97.6 F 55 16 117/73 100 General: Conversant, Other (appears chronically ill) HEENT: Atraumatic, Normocephaly, Other (scleraedema) Cardiac: Other (irregularly irregular) Lungs: Other (decreased) Neuro: Alert and responsive, No focal deficits noted Abdomen: Soft Skin: Other (poor skin integrity) Musculoskeletal: No Chest Wall Tenderness Extremities: Other (generalized anasarca; bilateral legs wrapped kerlix (seeping) and MOSHE bandages; facial edema) Results 09/04/18 05:31 09/03/18 18:10 Lab Results 09/03/18 09/03/18 09/03/18 18:10 18:11 18:11 WBC 8.7 Hgb 9.6 L Hct 32.6 L Plt Count 327 INR 2.2 APTT 32.4 Sodium 143 Potassium 4.2 Chloride 102 Carbon Dioxide 30 H BUN 28 H Creatinine 0.61 Glucose 173 H Calcium 9.0 Magnesium 1.8 Troponin I < 0.03 TSH 09/03/18 09/04/18 09/04/18 23:45 05:31 05:31 WBC 6.2 Hgb 8.5 L Hct 29.1 L Plt Count 284 INR 2.1 APTT Sodium Potassium Chloride Carbon Dioxide BUN Creatinine Glucose Calcium Magnesium Troponin I < 0.03 TSH 09/04/18 05:31 WBC Hgb Hct Plt Count INR APTT Sodium Potassium Chloride Carbon Dioxide BUN Creatinine Glucose Calcium Magnesium 2.2 Troponin I TSH 1.030 Active Medications Acetaminophen (Tylenol) 650 mg PO Q6HR PRN PRN Reason: Mild Pain/Fever Stop: 03/05/19 20:16 Aspirin (Aspirin) 81 mg PO DAILY [facility] Stop: 03/06/19 09:01 Last Admin: 09/04/18 08:12 Dose: 81 mg Documented by: Citalopram Hydrobromide (Celexa) 10 mg PO DAILY [facility] Stop: 03/06/19 09:01 Last Admin: 09/04/18 08:12 Dose: 10 mg Documented by: Dextrose/Water (Dextrose 50% (Syg)) 25 ml IVP AD PRN PRN Reason: Hypoglycemia Stop: 03/05/19 20:21 Furosemide (Lasix) 40 mg PO DAILY PRN PRN Reason: Swelling Stop: 03/05/19 20:20 Glucagon (Glucagen) 1 mg IM ONCE PRN PRN Reason: Hypoglycemia Stop: 03/05/19 20:21 Glucose (Gluctose) 15 gm PO ONCE PRN PRN Reason: Hypoglycemia Stop: 03/05/19 20:21 Glucose (Gluctose) 30 gm PO ONCE PRN PRN Reason: Hypoglycemia Stop: 03/05/19 20:21 Diltiazem HCl 125 mg/ Sodium (Chloride) 125 mls @ 5 mls/hr IVC CONT [facility]; Protocol Stop: 03/05/19 19:16 Last Titration: 09/04/18 07:02 Dose: 0 mg/hr, 0 mls/hr Documented by: Dextrose (Dextrose 5%) 1,000 mls @ 100 mls/hr IVC .Q10H PRN PRN Reason: HYPOGLYCEMIA Stop: 03/05/19 20:21 Insulin Human Lispro (Humalog) 0 units SQ HS [facility]; Protocol Stop: 03/05/19 21:01 Last Admin: 09/03/18 21:12 Dose: 3 units Documented by: Insulin Human Lispro (Humalog) 0 units SQ TIDAC [facility]; Protocol Stop: 03/06/19 07:31 Last Admin: 09/04/18 08:07 Dose: Not Given Documented by: Melatonin (Melatonin) 3 mg PO HS PRN PRN Reason: Sleep Metoprolol Tartrate (Lopressor) 5 mg IVP Q6HR PRN PRN Reason: HR > 120 Stop: 03/05/19 20:19 Last Admin: 09/04/18 05:58 Dose: 5 mg Documented by: Mometasone Furoate (Asmanex Hfa) 2 puff IH BIDRESP [facility]; Protocol Stop: 03/06/19 10:01 Naloxone HCl (Narcan) 0.4 mg IVP Q2MPRN PRN PRN Reason: SEE COMMENTS Stop: 03/05/19 20:16 Omeprazole (Prilosec) 20 mg PO DAILY@0730 [facility]; Protocol Stop: 03/06/19 07:31 Last Admin: 09/04/18 08:12 Dose: 20 mg Documented by: Ondansetron HCl (Zofran) 4 mg IVP Q8HR PRN PRN Reason: Nausea And Vomiting Stop: 03/05/19 20:16 Prednisone (Prednisone) 40 mg PO DAILY [facility] Stop: 03/06/19 09:01 Last Admin: 09/04/18 08:12 Dose: 40 mg Documented by: Sotalol HCl (Betapace) 120 mg PO BID [facility] Stop: 03/05/19 21:01 Last Admin: 09/04/18 08:12 Dose: 120 mg Documented by: Tizanidine HCl (Zanaflex) 4 mg PO DAILY PRN PRN Reason: Muscle Spasm Stop: 03/05/19 20:20 Warfarin Sodium (Coumadin Perpt) 0 each PO DAILY@1800 PRN PRN Reason: SEE COMMENTS Stop: 03/06/19 18:01 Warfarin Sodium (Coumadin) 2.5 mg PO SuMoWeThFr@1800 [facility] Stop: 03/06/19 18:01 - Imaging and Cardiology Echo: report reviewed Cardiac cath: report reviewed Other Results: 12 hour tele: avg HR=81 Afib - EKG Interpretation EKG results cardiology: personally reviewed Consult Discharge Plan - Plan Referrals: Aleksandar Strickland DO [Primary Care Provider] -
--- NOTE | 2018-09-04 10:57 | Electrocardiograph Report ---
[facility] Test Date: 2018-09-03 Pat Name: Erica Merida Department: EXAM12 Room: 2A34 Gender: F [employer]: : 1950 Requested By: Eder Olsen Order Number: [id number] Reading MD: Pop Fuller Measurements Intervals [place] Rate: 152 P: 100 NM: 229 QRS: 21 QRSD: 88 T: 160 QT: 341 QTc: 543 Interpretive Statements Sinus tachycardia Prolonged NM interval Repolarization abnormality, prob rate related, ST dep and T changes laterally present in 04/2018 Prolonged QT interval Electronically Signed On 09-04-2018 10:56:00 EDT by Pop Fuller
--- NOTE | 2018-09-04 11:01 | Internal Med Progress Note ---
<Gregory Martin - Last Filed: 09/04/18 18:19> Hospitalist Progress Note - Encounter Date of Encounter: 09/04/18 - Exam Vitals: Temp Pulse Resp BP Pulse Ox 97.6 F 137 18 130/87 98 09/04/18 16:35 09/04/18 16:35 09/04/18 16:35 09/04/18 16:35 09/04/18 16:35 - Assessment and Plan (1) Atrial fibrillation Current Visit: Yes Status: Chronic (2) CHF (congestive heart failure) Current Visit: Yes Status: Chronic (3) HLD (hyperlipidemia) Current Visit: Yes Status: Chronic (4) Chronic respiratory failure Current Visit: Yes Status: Chronic (5) Type II diabetes mellitus Current Visit: Yes Status: Chronic - Time Spent with Patient Total time spent is greater than 50% in coordination of care (as documented) at patient's floor/unit and/or counseling patient: Internal Medicine: Result - Labs CBC & Chem 7: 09/04/18 05:31 09/03/18 18:10 Labs: Short CBC 09/03/18 09/04/18 Range/Units 18:11 05:31 WBC 8.7 6.2 (4.3-11.1) K/mcL Hgb 9.6 L 8.5 L (11.5-15.4) g/dL Hct 32.6 L 29.1 L (35.3-44.9) % Plt Count 327 284 (140-400) K/mcL Neutrophils # 7.4 4.2 (1.6-8.9) K/mcL BMP 09/03/18 18:10 Sodium 143 Potassium 4.2 Chloride 102 Carbon Dioxide 30 H BUN 28 H Creatinine 0.61 Glucose 173 H Calcium 9.0 Cardiac Enzymes 09/03/18 09/03/18 Range/Units 18:10 23:45 Troponin I < 0.03 < 0.03 (< 0.04) ng/mL - ABG Interpretation ABG results: PT/INR, D-dimer PT 23.8 Seconds (9.4-12.1) H 09/04/18 05:31 - Impressions Impressions Chest X-Ray 09/03/18 17:58 IMPRESSION: 1. Elevated right hemidiaphragm. No acute abnormality. Right basilar opacity is likely scarring or atelectasis. D/ / Quang Soni MD / Quang Soni MD Interpreting Provider: Quang Soni MD Consult Discharge Plan - Plan Referrals: Aleksandar Strickland DO [Primary Care Provider] - - Attending Attestation I examined this patient and my medical decision-making was reviewed with the Resident Physician on 09/04/18. I agree with the documented findings, disposition and treatment plan as described except to the extent set forth below. Ms Merida is currently hospitalized for rapid atrial fibrillation. She remains moderate to high risk due to potential for worsening clinical status. Ms Merida is resting at this time. No fever. No CP. No N/V or other new symptoms. Exam alert comfortable, mucus membranes moist. Heart irreg and tachycardia. Lungs diminished at this time. Abd soft and nontender. Moves all extremities. No rash. Plan: Appreciate card input. Continue BP meds. Follow blood sugar. <Caden Faust - Last Filed: 09/04/18 19:48> Hospitalist Progress Note - Encounter Date of Encounter: 09/04/18 Time of Encounter: 10:00 - Subjective Interval History: Patient seen and examined at bedside. Reports no symptoms associated with her atrial fibrillation. States that her lower extremity swelling is not worse than normal and that this is been a chronic problem ever since was starting her steroid regimen. No complaints at this time, awaiting update from her scientific diver - Exam Vitals: Temp Pulse Resp BP Pulse Ox 97.6 F 55 18 117/73 99 09/04/18 07:22 09/04/18 07:22 09/04/18 10:19 09/04/18 07:22 09/04/18 10:19 Exam: Gen.: Vitals noted. No acute distress. AAOx3, resting comfortably in bed. Obese HEENT: PERRL/EOMI, oropharynx clear, Normocephalic, atraumatic, MMM Cardiac: Irregularly irregular rhythm, tachycardic, no murmur, +S1/S2, 3+ BLE e collin Pulmonary: Absent breath sounds in bases particularly on right, equal chest expansion, unlabored breathing Abdomen: soft, nontender, BS noted, no guarding Skin: warm and dry, no visible lesions. Lower Extremities bandaged. MSK: ROM assessed, no joint swelling noted, gait no assessed while in bed. Non tender calf or clubbing Neuro: A&Ox3, moves all extremities, no focal deficits, sensation intact Psych: Appropriate mood and behavior, AOx3 - Assessment and Plan (1) Atrial fibrillation Current Visit: Yes Status: Chronic Assessment and Plan: -Known history of atrial fibrillation, followed by [place] cardiology -presented with Afib RVR, HR in the 150's -Multiple cardioversions in the past, most recent in April 2018 -Patient does take Coumadin, INR therapeutic 2.2 -Patient has been asymptomatic since her last cardioversion and since admission -Patient is chronically anemic, currently at baseline, H+H stable -Patient's home meds include sotalol 120 every 12 and Toprol-XL 25 daily -Cardizem drip started overnight, rate reduced to low 100s however unable to maintain rhythm control -Cardiology consulted, appreciate recommendations Plan: -Continue coumadin, pharmacy to dose for target INR 2-3 -Continue to monitor closely, follow H+H -Per Cardiology: -continue Toprol, Sotalol -Can D/C gtt Cardizem -Given complex hx PAF, consult EP for further management (2) CHF (congestive heart failure) Current Visit: Yes Status: Chronic Assessment and Plan: -Patient chronically fluid overloaded secondary to diastolic heart failure in addition to chronic steroid use and high salt diet -Last Echo performed 12/30/17: LVEF 60-65%, normal wall motion normal RV structure -Patient currently reports she is no more swollen than baseline, though appears significantly fluid overloaded -weight is actually down according to most recent outpatient OV -BLE with +3 edema and seepage, Kerlix with MOSHE Bandages applied Plan: -Restart Lasix, BB, ASA -Recommend low salt diet and fluid restriction -monitor for worsening signs of volume overload -Consider repeat Echo if symptoms worsen (3) HLD (hyperlipidemia) Current Visit: Yes Status: Chronic Assessment and Plan: Lipid panel signficantly elevated Patient with multiple risk factors for CVA, including chronic AFib, HTN TG 175; Chol. 222; LDL 135; VLDL 35 Plan: -will start Atorvastatin 40mg (4) HTN (hypertension) Current Visit: Yes Status: Chronic Assessment and Plan: Known history of HTN Slightly elevated during admission Plan: -continue to monitor -continue home meds (5) Interstitial lung disease Current Visit: Yes Status: Chronic Assessment and Plan: Patient with known hx of ILD, followed by Pulmonology Currently on steroid regimen and is Status Post Lobectomy of RLL On 2L at home, restarted during admission Plan: -continue supplementing O2 -Monitor for respiratory complaints, no SOB at this time DVT Prophylaxis: Coumadin - Time Spent with Patient Total time spent is greater than 50% in coordination of care (as documented) at patient's floor/unit and/or counseling patient: Internal Medicine: Result - Labs CBC & Chem 7: 09/04/18 05:31 09/03/18 18:10 Labs: Short CBC 09/03/18 09/04/18 Range/Units 18:11 05:31 WBC 8.7 6.2 (4.3-11.1) K/mcL Hgb 9.6 L 8.5 L (11.5-15.4) g/dL Hct 32.6 L 29.1 L (35.3-44.9) % Plt Count 327 284 (140-400) K/mcL Neutrophils # 7.4 4.2 (1.6-8.9) K/mcL BMP 09/03/18 18:10 Sodium 143 Potassium 4.2 Chloride 102 Carbon Dioxide 30 H BUN 28 H Creatinine 0.61 Glucose 173 H Calcium 9.0 Cardiac Enzymes 09/03/18 09/03/18 Range/Units 18:10 23:45 Troponin I < 0.03 < 0.03 (< 0.04) ng/mL - ABG Interpretation ABG results: PT/INR, D-dimer PT 23.8 Seconds (9.4-12.1) H 09/04/18 05:31 - Impressions Impressions Chest X-Ray 09/03/18 17:58 IMPRESSION: 1. Elevated right hemidiaphragm. No acute abnormality. Right basilar opacity is likely scarring or atelectasis. D/ / Quang Soni MD / Qunag Soni MD Interpreting Provider: Quang Soni MD <Gregory Martin A - Last Filed: 09/04/18 18:19> (1) Atrial fibrillation Qualifiers: Atrial fibrillation type: persistent Qualified Code(s): I48.1 - Persistent at rial fibrillation (2) CHF (congestive heart failure) Qualifiers: Heart failure type: diastolic Heart failure chronicity: chronic Qualified Code(s): I50.32 - Chronic diastolic (congestive) heart failure (3) HLD (hyperlipidemia) Qualifiers: Hyperlipidemia type: mixed hyperlipidemia Qualified Code(s): E78.2 - Mixed hyperlipidemia (4) Chronic respiratory failure Qualifiers: Respiratory failure complication: hypoxia Qualified Code(s): J96.11 - Chronic respiratory failure with hypoxia (5) Type II diabetes mellitus Qualifiers: Diabetes mellitus oil heaterman insulin use: without jail use Diabetes mellitus complication status: without complication Qualified Code(s): E11.9 - Type 2 diabetes mellitus without complications <Caden Faust M - Last Filed: 09/04/18 19:48> (1) Atrial fibrillation Qualifiers: Atrial fibrillation type: persistent Qualified Code(s): I48.1 - Persistent atrial fibrillation (2) CHF (congestive heart failure) Qualifiers: Heart failure type: diastolic Heart failure chronicity: chronic Qualified Code(s): I50.32 - Chronic diastolic (congestive) heart failure (3) HLD (hyperlipidemia) Qualifiers: Hyperlipidemia type: mixed hyperlipidemia Qualified Code(s): E78.2 - Mixed hyperlipidemia (4) HTN (hypertension) Qualifiers: Hypertension type: essential hypertension Qualified Code(s): I10 - Essential (primary) hypertension
[2018-09-04] MEDS: Metoprolol XL (24 HR) Succ 25 MG TAB.ER.24H PO SCH (11:38)
[2018-09-04] MEDS: Furosemide 40 MG TABLET PO SCH (11:38)
--- NOTE | 2018-09-04 14:07 | Electrophysiology Consult Note ---
<JoeAidee J - Last Filed: 09/04/18 14:08> Date of Encounter: 09/04/18 Time of Encounter: 14:06 Assessment and Plan (1) Atrial fibrillation Current Visit: Yes Status: Chronic Per EP: -Long standing hx of PAF s/p multiple failed antiarrhythmics, DCCV, and hx of cryoablation in June 2017. -s/p MIKEY guided DCCV 04/25/18-reports has maintained NSR until recent. However does reports short episodes of a.fib. -Presented in Aflutter with RVR; On sotalol 120 mg q12H and Toprol XL 25 mg daily. -Anticoagulated on Coumadin; INR therapuetic. Anemia noted, however H/H stable. No abnormal or unusual bleeding reported. -INRs have been therapeutic for the past 30 days. 09/04 2.1, 09/03 2.2, 08/28 2.3, 08/22 2.8, 08/15 2.9, 08/08 2.2, 08/01 2.1 -Discussed with Dr.John Ness, will increase sotalol to 160mg BID. Continue BB. -ECGs daily. -Potential cardioversion prior to discharge pending clinical coarse. Qualifiers: Atrial fibrillation type: paroxysmal Qualified Code(s): I48.0 - Paroxysmal atrial fibrillation (2) Encounter for monitoring anti-arrhythmic therapy Current Visit: No Status: Acute Per EP: -Sotalol is being increased. -Baseline ECG 09/03/18 with a.flutter, HR 75. QT 410/QTc 439. -Will check daily ECGs. -Will monitor renal function closely. Discussion w patient/family: The assessment and plan as outlined above was discussed with the patient and/or family members who expressed understanding and agreement. All questions were answered. Thank you for involving us in the care of your patient. Please call with any questions. Discussed and reviewed with Dr.John Ness. History of Present Illness Consult date: 09/04/18 Requesting physician: Cindi Shane Consult reason: PAF Chief complaint: elevated HR History of present illness: Ms. Merida is a 67 year old female with PMHx significant of PAF s/p cryoablation in June 2017, HTN, diastolic CHF, and TIA who presented to the ED as recommended by Home care nurse due to elevated HR >150. Patient has a known history of PAF. Currently on sotalol. States she has noticed some intermittent a.fib, however, states episodes have been short lived. States this episode of a.fib, she persisted in a.fib. Patient reports chronic shortness of breath. Denies chest pain. Reports palpitations. Past Med Surg Social Fam HX - Past Medical History Attestation: Yes The following information was validated with the patient. Source: patient, old records reviewed Medical history: asthma, atrial fibrillation, CHF, diabetes, hyperlipidemia, hypertension, TIA, other Additional medical history: Neuropathy Psychiatric history: no psych history - Past Surgical History Surgical History: breast surgery, cancer surgery, hysterectomy Additional surgical history: breast reconstrution - Social History Smoking Status: Never smoker Smokeless Tobacco Status: No Alcohol use: none Drug use: none - Family History Father Family Member Ethnicity: Non- Living Status: Hx Family Cardiac Disorders: Yes (hypertension) Hx Family Respiratory Disorders: No Hx Family Cancer: No Hx Family GI Disorders: No Hx Family Endocrine Disorder: Yes (diabetes) Hx Family Neuromuscular Disorders: No Hx Family Neurologic Disorders: No Hx Family HEENT Disorders: No Hx Family Autoimmune Disorders: No Mother Adopted: No Family Member Ethnicity: Non- Living Status: Still Living Hx Family Cardiac Disorders: Yes (Afib) Hx Family Respiratory Disorders: No Hx Family Cancer: Yes (Colon) Hx Family GI Disorders: Yes (Cancer) Hx Family Endocrine Disorder: Yes Hx Family Neuromuscular Disorders: Yes (Stroke 2016) Hx Family Neurologic Disorders: No Hx Family HEENT Disorders: No Hx Family Autoimmune Disorders: No Medications and Allergies Aspirin 81 mg PO DAILY 11/10/14 [History] Omeprazole [PriLOSEC] 20 mg PO DAILY 11/29/15 [History] Fluticasone Furoate [Arnuity Ellipta] 1 puff IH DAILY 05/28/17 [History] Melatonin 5 mg PO HS PRN 05/28/17 [History] Furosemide [Lasix] 40 mg PO DAILY PRN 07/26/17 [History] Albuterol Sulfate [Ventolin Hfa] 2 puff PO Q6H PRN 01/28/18 [History] Metoprolol XL (24 HR) Succ [Toprol Xl] 25 mg PO DAILY tab.er.24h 04/17/18 [Rx] Calcium Carbonate [Calcium] 600 mg PO DAILY 09/03/18 [History] Citalopram Hydrobromide [Citalopram HBr] 10 mg PO DAILY 09/03/18 [History] Loratadine [Allergy Relief] 10 mg PO DAILY 09/03/18 [History] Metformin HCl [Fortamet] 1,000 mg PO QPM 09/03/18 [History] Sotalol HCl [Betapace] 120 mg PO BID 09/03/18 [History] Tizanidine HCl 4 mg PO DAILY PRN 09/03/18 [History] Warfarin [Coumadin] 2.5 mg PO SUMOWETHFR 09/03/18 [History] predniSONE [PredniSONE] 40 mg PO DAILY 09/03/18 [History] Allergy/AdvReac Type Severity Reaction Status Date / Time adhesive tape Allergy Hives Verified 01/28/18 11:45 All Systems Review: The remainder of the systems were reviewed and are negative - Cardiovascular Cardiovascular: as per HPI, dyspnea on exertion, rapid heart rate Physical Examination Vital Signs, Last 4 Hours Temp Pulse Resp BP Pulse Ox 09/04/18 11:46 97.9 F 136 18 139/92 96 09/04/18 10:19 18 99 General: Conversant, Other (Conversational dyspnea) HEENT: Atraumatic, Normocephaly, Mucus Membranes Moist Neck: No JVD, Normal carotid pulses Cardiac: Normal S1 and S2, No Murmur, Other (Irregularly irregular) Lungs: Normal Breath Sounds, No Wheeze, Rales, Rhonchi Neuro: Alert and responsive, No focal deficits noted Abdomen: Soft, Non-Tender Skin: No rashes noted on visualized skin Musculoskeletal: No Chest Wall Tenderness Extremities: No Clubbing, No Cyanosis, Normal Pulses, Other (lower extremity edema noted. ) Results 09/04/18 05:31 09/03/18 18:10 Lab Results Impressions Chest X-Ray 09/03/18 17:58 IMPRESSION: 1. Elevated right hemidiaphragm. No acute abnormality. Right basilar opacity is likely scarring or atelectasis. D/ / Quang Soni MD / Quang Soni MD Interpreting Provider: Quang Soni MD Active Medications Acetaminophen (Tylenol) 650 mg PO Q6HR PRN PRN Reason: Mild Pain/Fever Stop: 03/05/19 20:16 Aspirin (Aspirin) 81 mg PO DAILY [facility] Stop: 03/06/19 09:01 Last Admin: 09/04/18 08:12 Dose: 81 mg Documented by: Atorvastatin Calcium (Lipitor) 40 mg PO HS [facility] Stop: 03/06/19 21:01 Citalopram Hydrobromide (Celexa) 10 mg PO DAILY [facility] Stop: 03/06/19 09:01 Last Admin: 09/04/18 08:12 Dose: 10 mg Documented by: Dextrose/Water (Dextrose 50% (Syg)) 25 ml IVP AD PRN PRN Reason: Hypoglycemia Stop: 03/05/19 20:21 Furosemide (Lasix) 40 mg PO DAILY [facility] Stop: 03/06/19 11:31 Last Admin: 09/04/18 11:38 Dose: 40 mg Documented by: Glucagon (Glucagen) 1 mg IM ONCE PRN PRN Reason: Hypoglycemia Stop: 03/05/19 20:21 Glucose (Gluctose) 15 gm PO ONCE PRN PRN Reason: Hypoglycemia Stop: 03/05/19 20:21 Glucose (Gluctose) 30 gm PO ONCE PRN PRN Reason: Hypoglycemia Stop: 03/05/19 20:21 Dextrose (Dextrose 5%) 1,000 mls @ 100 mls/hr IVC .Q10H PRN PRN Reason: HYPOGLYCEMIA Stop: 03/05/19 20:21 Insulin Human Lispro (Humalog) 0 units SQ HS [facility]; Protocol Stop: 03/05/19 21:01 Last Admin: 09/03/18 21:12 Dose: 3 units Documented by: Insulin Human Lispro (Humalog) 0 units SQ TIDAC [facility]; Protocol Stop: 03/06/19 07:31 Last Admin: 09/04/18 11:39 Dose: Not Given Documented by: Melatonin (Melatonin) 3 mg PO HS PRN PRN Reason: Sleep Metoprolol Succinate (Toprol Xl) 25 mg PO DAILY [facility] Stop: 03/06/19 11:31 Last Admin: 09/04/18 11:38 Dose: 25 mg Documented by: Metoprolol Tartrate (Lopressor) 5 mg IVP Q6HR PRN PRN Reason: HR > 120 Stop: 03/05/19 20:19 Last Admin: 09/04/18 05:58 Dose: 5 mg Documented by: Mometasone Furoate (Asmanex Hfa) 2 puff IH BIDRESP [facility]; Protocol Stop: 03/06/19 10:01 Last Admin: 09/04/18 10:19 Dose: 2 puff Documented by: Naloxone HCl (Narcan) 0.4 mg IVP Q2MPRN PRN PRN Reason: SEE COMMENTS Stop: 03/05/19 20:16 Omeprazole (Prilosec) 20 mg PO DAILY@0730 [facility]; Protocol Stop: 03/06/19 07:31 Last Admin: 09/04/18 08:12 Dose: 20 mg Documented by: Ondansetron HCl (Zofran) 4 mg IVP Q8HR PRN PRN Reason: Nausea And Vomiting Stop: 03/05/19 20:16 Prednisone (Prednisone) 40 mg PO DAILY [facility] Stop: 03/06/19 09:01 Last Admin: 09/04/18 08:12 Dose: 40 mg Documented by: Sotalol HCl (Betapace) 160 mg PO Q12HR [facility] Stop: 03/06/19 18:01 Tizanidine HCl (Zanaflex) 4 mg PO DAILY PRN PRN Reason: Muscle Spasm Stop: 03/05/19 20:20 Warfarin Sodium (Coumadin Perpt) 1 each PO DAILY@1800 PRN PRN Reason: SEE COMMENTS Stop: 03/06/19 18:01 Warfarin Sodium (Coumadin) 1 mg PO 1800 [facility] Stop: 09/04/18 18:01 Laboratory Tests 09/03/18 09/04/18 09/04/18 18:10 05:31 05:31 Hgb 8.5 L INR 2.1 Potassium 4.2 Creatinine 0.61 Magnesium 09/04/18 05:31 Hgb INR Potassium Creatinine Magnesium 2.2 - Imaging and Cardiology Chest Xray: report reviewed Echo: report reviewed - EKG Interpretation EKG results cardiology: personally reviewed (ECG with joelfib RVR.), other (Te lemetry reviewed with average HR previous 12 hours noted to be 133, a.flutter. PVCs.) Consult Discharge Plan - Plan Referrals: Aleksandar Strickland DO [Primary Care Provider] - <Jose Armando Ness - Last Filed: 09/04/18 15:42> Date of Encounter: 09/04/18 - Attending Attestation I have personally performed a face to face evaluation on this patient. I have reviewed and agree with the care plan. History and Exam by me shows: Recurrent AF, would recommend titrating sotalol. Cardiovert prior to D/C. Assessment and Plan Discussion w patient/family: The assessment and plan as outlined above was discussed with the patient and/or family members who expressed understanding and agreement. All questions were answered. Thank you for involving us in the care of your patient. Please call with any questions. History of Present Illness History of present illness: Ms. Merida is a 67 year old female All Systems Review: The remainder of the systems were reviewed and are negative Physical Examination Vital Signs, Last 4 Hours Temp Pulse Resp BP Pulse Ox 09/04/18 11:46 97.9 F 136 18 139/92 96 Results 09/04/18 05:31 09/03/18 18:10 Lab Results 09/03/18 09/03/18 09/03/18 18:10 18:11 18:11 WBC 8.7 Hgb 9.6 L Hct 32.6 L Plt Count 327 INR 2.2 APTT 32.4 Sodium 143 Potassium 4.2 Chloride 102 Carbon Dioxide 30 H BUN 28 H Creatinine 0.61 Glucose 173 H Calcium 9.0 Magnesium 1.8 Troponin I < 0.03 TSH 09/03/18 09/04/18 09/04/18 23:45 05:31 05:31 WBC 6.2 Hgb 8.5 L Hct 29.1 L Plt Count 284 INR 2.1 APTT Sodium Potassium Chloride Carbon Dioxide BUN Creatinine Glucose Calcium Magnesium Troponin I < 0.03 TSH 09/04/18 05:31 WBC Hgb Hct Plt Count INR APTT Sodium Potassium Chloride Carbon Dioxide BUN Creatinine Glucose Calcium Magnesium 2.2 Troponin I TSH 1.030
--- NOTE | 2018-09-04 15:03 | Electrocardiograph Report ---
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 See P waves buried in T in V2 Low voltage, precordial leads Repolarization abnormality, prob rate related Electronically Signed On 09-04-2018 15:02:12 EDT by Pop Fuller
[2018-09-04] MEDS ORDERED: Warfarin perPT PO PRN (18:00)
[2018-09-04] MEDS ORDERED: *HR* Warfarin 2.5 MG TABLET PO SCH (18:00)
[2018-09-04] MEDS ORDERED: *HR* Warfarin 1 MG TABLET PO ONE (18:00)
[2018-09-04] MEDS ORDERED: Perflutren Lipid Microsphere 1.3 ML in 0.9 % Sodium Chloride 8.7 ML IVP ONE (20:38)
[2018-09-05 05:59] LABS: INR 1.6
[2018-09-05 06:06] LABS: BUN/Creatinine Ratio 34 (6-26); Blood Urea Nitrogen 20 mg/dL (8-23); Calcium 8.5 mg/dL (8.6-10.3); Carbon Dioxide 38 mEq/L (23-29); Chloride 100 mEq/L (98-107); Glucose 121 mg/dL (70-105); Osmolality,Calculated 302 (280-300); Potassium 3.5 mEq/L (3.5-5.1); Sodium 144 mEq/L (136-145); eGFR For African Americans > 60 (> 60); eGFR For Non-African Americans > 60 (> 60)
--- NOTE | 2018-09-05 07:40 | Internal Med Progress Note ---
Hospitalist Progress Note - Encounter Date of Encounter: 09/05/18 Time of Encounter: 10:00 - Subjective Interval History: Patient seen and examined at bedside. Reports feeling somewhat improved today, no sensation of palpitations or fluttering in the chest and believes that the swelling in her legs has gone down somewhat. Patient chronically on 2 L oxygen at home for interstitial lung disease status post right lower lobeectomy, but reports that she has been breathing well enough to go without the oxygen this morning. She does feel the need to resume oxygen while conversating. Patient remains tachycardic in the 120s, however has been asymptomatic. Will continue sotalol dose at 160 by mouth every 12 hours, and plan for cardioversion prior to discharge if no improvement. Patient continues to be anemic however this is a chronic problem and she is actually improved from baseline based on chart review. - Exam Vitals: Temp Pulse Resp BP Pulse Ox 97.7 F 93 16 123/84 100 09/05/18 07:28 09/05/18 07:28 09/05/18 07:28 09/05/18 07:28 09/05/18 07:28 Exam: Gen.: Vitals noted. No acute distress. AAOx3, resting comfortably in bed. Obese HEENT: PERRL/EOMI, oropharynx clear, Normocephalic, atraumatic, MMM Cardiac: Irregularly irregular rhythm, tachycardic, no murmur, +S1/S2, 3+ BLE edema Pulmonary: Absent breath sounds in bases particularly on right, equal chest expansion, unlabored breathing Abdomen: soft, nontender, BS noted, no guarding Skin: warm and dry, no visible lesions. Lower Extremities bandaged. Neuro: A&Ox3, moves all extremities, no focal deficits, sensation intact Psych: Appropriate mood and behavior, AOx3 - Assessment and Plan (1) Atrial fibrillation Current Visit: Yes Status: Chronic Assessment and Plan: -Known history of atrial fibrillation, followed by [facility] cardiology -presented with Afib RVR, HR in the 150's -Multiple cardioversions in the past, most recent in April 2018 -Patient does take Coumadin, INR subtherapeutic today at 1.6 -Patient has been asymptomatic since her last cardioversion and since admission -Patient is chronically anemic, currently at baseline, H+H stable Plan: -Continue to monitor closely, follow H+H -Per Cardiology: -continue Toprol, Sotalol 160 mg every 12 hours -If after 5 doses of sotalol therapy patient remains in RVR, will cardiovert prior to discharge -Maintain therapeutic INR between 2 and 3, subtherapeutic at 1.6 this morning -Lovenox added, appreciate recommendations (2) CHF (congestive heart failure) Current Visit: Yes Status: Chronic Assessment and Plan: -Patient chronically fluid overloaded secondary to diastolic heart failure in addition to chronic steroid use and high salt diet -Last Echo performed 12/30/17: LVEF 60-65%, normal wall motion normal RV structure -Patient currently reports she is no more swollen than baseline, though appears significantly fluid overloaded -weight is actually down according to most recent outpatient OV -BLE with +3 edema and seepage, Kerlix with MOSHE Bandages applied Plan: -Continue Lasix, BB, ASA -Monitor fluid status -Echo results September 04: -LV systolic function hyperdynamic, indeterminate diastolic function -Mild mitral and tricuspid regurgitation -Will consider repeat echo when heart rate improved (3) HLD (hyperlipidemia) Current Visit: Yes Status: Chronic Assessment and Plan: Continue statin Follow-up outpatient with repeat labs (4) HTN (hypertension) Current Visit: Yes Status: Chronic Assessment and Plan: Currently stable BP Continue to monitor (5) Interstitial lung disease Current Visit: Yes Status: Chronic Assessment and Plan: Patient with known hx of ILD, followed by Pulmonology Currently on steroid regimen and is Status Post Lobectomy of RLL On 2L at home, restarted during admission Plan: -continue supplementing O2 -Monitor for respiratory complaints, no SOB at this time DVT Prophylaxis: Coumadin - Time Spent with Patient Total time spent is greater than 50% in coordination of care (as documented) at patient's floor/unit and/or counseling patient: Internal Medicine: Result - Labs CBC & Chem 7: 09/05/18 11:51 09/05/18 05:30 Labs: BMP 09/05/18 05:30 Sodium 144 Potassium 3.5 Chloride 100 Carbon Dioxide 38 H BUN 20 Creatinine 0.58 L Glucose 121 H Calcium 8.5 L - ABG Interpretation ABG results: PT/INR, D-dimer PT 18.0 Seconds (9.4-12.1) H 09/05/18 05:30 Consult Discharge Plan - Plan Referrals: Aleksandar Strickland DO [Primary Care Provider] - (1) Atrial fibrillation Qualifiers: Atrial fibrillation type: persistent Qualified Code(s): I48.1 - Persistent atrial fibrillation (2) CHF (congestive heart failure) Qualifiers: Heart failure type: diastolic Heart failure chronicity: chronic Qualified Code(s): I50.32 - Chronic diastolic (congestive) heart failure (3) HLD (hyperlipidemia) Qualifiers: Hyperlipidemia type: mixed hyperlipidemia Qualified Code(s): E78.2 - Mixed hyperlipidemia (4) HTN (hypertension) Qualifiers: Hypertension type: essential hypertension Qualified Code(s): I10 - Essential (primary) hypertension
--- NOTE | 2018-09-05 08:10 | Cardiology Progress Note ---
Date of Encounter: 09/05/18 Time of Encounter: 07:20 Assessment and Plan (1) Atrial fibrillation Current Visit: Yes Status: Chronic -Long standing hx of PAF s/p multiple failed antiarrhythmics, DCCV, and hx of cryoablation in June 2017. -s/p MIKEY guided DCCV 04/25/18-reports has maintained NSR until recent. However does reports short episodes of a.fib. -Presented in Aflutter with RVR; On sotalol 120 mg q12H and Toprol XL 25 mg daily. -Anticoagulated on Coumadin; INR subtherapuetic. Anemia noted, however H/H stable. No abnormal or unusual bleeding reported. -INR 1.6, will add therapeutic lovenox until INR >2.0. -Sotalol increased to 160 mg Q12H on 09/04/18, first dose PM. -ECGs today showed Aflutter (129) QT/QTc stable, 307/383 ms -Potential cardioversion (with MIKEY?) prior to discharge pending clinical coarse. Qualifiers: Atrial fibrillation type: persistent Qualified Code(s): I48.1 - Persistent atrial fibrillation (2) CHF (congestive heart failure) Current Visit: Yes Status: Chronic Hx of chronic diastolic CHF. Most recent TTE 12/30/17: LVEF 60-65%, moderate LVDD, normal RV structure and function, mild-moderate TR, moderate PH, normal wall motion. Significant volume overload upon exam, appears to be anasarca. Weight actually down from last outpt OV by 2 lbs. Bilateral LE wrapped in kerlix (seeping) and MOSHE bandages. Chronic steroid use likely contributing to fluid retention. Also reports diet high in sodium. CHF teaching discussed including importance of Na and fluid restricted diet. Qualifiers: Heart failure type: diastolic Heart failure chronicity: chronic Qualified Code(s): I50.32 - Chronic diastolic (congestive) heart failure Discussion w patient/family: The assessment and plan as outlined above was discussed with the patient and/or family members who expressed understanding and agreement. All questions were answered. Thank you for involving us in the care of your patient. Please call with any questions. The patient will be discussed and reviewed with Dr. Burnett; changes to be made accordingly. Subjective Principal diagnosis: Afib Interval history: Seen and examined. Patient reports she feels much better today. Leg and facial edema improved. Denies orthopnea. Upon exam, patient is up and ambulating in room. Objective Vital Signs, Last 4 Hours Temp Pulse Resp BP Pulse Ox 09/05/18 07:28 97.7 F 93 16 123/84 100 09/05/18 07:14 18 100 09/05/18 05:05 97.7 F 132 16 154/91 100 General: Conversant, No Apparent Distress HEENT: Atraumatic, Normocephaly, Mucus Membranes Moist Cardiac: Other (irregularly irregular) Lungs: Normal Breath Sounds Neuro: Alert and responsive Abdomen: Soft Skin: Other (poor skin integrity) Musculoskeletal: No Chest Wall Tenderness Extremities: Other (significant generalized anasarca--improved) Results 09/04/18 05:31 09/05/18 05:30 Lab Results 09/05/18 09/05/18 05:30 05:30 INR 1.6 Sodium 144 Potassium 3.5 Chloride 100 Carbon Dioxide 38 H BUN 20 Creatinine 0.58 L Glucose 121 H Calcium 8.5 L Active Medications Acetaminophen (Tylenol) 650 mg PO Q6HR PRN PRN Reason: Mild Pain/Fever Stop: 03/05/19 20:16 Aspirin (Aspirin) 81 mg PO DAILY [facility] Stop: 03/06/19 09:01 Last Admin: 09/04/18 08:12 Dose: 81 mg Documented by: Atorvastatin Calcium (Lipitor) 40 mg PO HS [facility] Stop: 03/06/19 21:01 Last Admin: 09/04/18 21:07 Dose: 40 mg Documented by: Citalopram Hydrobromide (Celexa) 10 mg PO DAILY [facility] Stop: 03/06/19 09:01 Last Admin: 09/04/18 08:12 Dose: 10 mg Documented by: Dextrose/Water (Dextrose 50% (Syg)) 25 ml IVP AD PRN PRN Reason: Hypoglycemia Stop: 03/05/19 20:21 Enoxaparin Sodium (Lovenox *Pharmacy Wt Based*) 110 mg SQ Q12HCO [facility]; Protocol Stop: 03/07/19 07:31 Furosemide (Lasix) 40 mg PO DAILY [facility] Stop: 03/06/19 11:31 Last Admin: 09/04/18 11:38 Dose: 40 mg Documented by: Glucagon (Glucagen) 1 mg IM ONCE PRN PRN Reason: Hypoglycemia Stop: 03/05/19 20:21 Glucose (Gluctose) 15 gm PO ONCE PRN PRN Reason: Hypoglycemia Stop: 03/05/19 20:21 Glucose (Gluctose) 30 gm PO ONCE PRN PRN Reason: Hypoglycemia Stop: 03/05/19 20:21 Dextrose (Dextrose 5%) 1,000 mls @ 100 mls/hr IVC .Q10H PRN PRN Reason: HYPOGLYCEMIA Stop: 03/05/19 20:21 Insulin Human Lispro (Humalog) 0 units SQ HS [facility]; Protocol Stop: 03/05/19 21:01 Last Admin: 09/04/18 21:03 Dose: Not Given Documented by: Insulin Human Lispro (Humalog) 0 units SQ TIDAC [facility]; Protocol Stop: 03/06/19 07:31 Last Admin: 09/04/18 17:23 Dose: 4 units Documented by: Melatonin (Melatonin) 3 mg PO HS PRN PRN Reason: Sleep Metoprolol Succinate (Toprol Xl) 25 mg PO DAILY [facility] Stop: 03/06/19 11:31 Last Admin: 09/04/18 11:38 Dose: 25 mg Documented by: Metoprolol Tartrate (Lopressor) 5 mg IVP Q6HR PRN PRN Reason: HR > 120 Stop: 03/05/19 20:19 Last Admin: 09/04/18 14:56 Dose: 5 mg Documented by: Mometasone Furoate (Asmanex Hfa) 2 puff IH BIDRESP [facility]; Protocol Stop: 03/06/19 10:01 Last Admin: 09/05/18 07:14 Dose: 2 puff Documented by: Naloxone HCl (Narcan) 0.4 mg IVP Q2MPRN PRN PRN Reason: SEE COMMENTS Stop: 03/05/19 20:16 Omeprazole (Prilosec) 20 mg PO DAILY@0730 [facility]; Protocol Stop: 03/06/19 07:31 Last Admin: 09/04/18 08:12 Dose: 20 mg Documented by: Ondansetron HCl (Zofran) 4 mg IVP Q8HR PRN PRN Reason: Nausea And Vomiting Stop: 03/05/19 20:16 Prednisone (Prednisone) 40 mg PO DAILY [facility] Stop: 03/06/19 09:01 Last Admin: 09/04/18 08:12 Dose: 40 mg Documented by: Sotalol HCl (Betapace) 160 mg PO Q12HR [facility] Stop: 03/06/19 18:01 Last Admin: 09/05/18 05:28 Dose: 160 mg Documented by: Tizanidine HCl (Zanaflex) 4 mg PO DAILY PRN PRN Reason: Muscle Spasm Stop: 03/05/19 20:20 Warfarin Sodium (Coumadin Perpt) 1 each PO DAILY@1800 PRN PRN Reason: SEE COMMENTS Stop: 03/06/19 18:01 - Imaging and Cardiology Other Results: 12 hour tele: altagracia [id number] aflutter Consult Discharge Plan - Plan Referrals: Aleksandar Strickland DO [Primary Care Provider] -
[2018-09-05] MEDS: Insulin LISPRO 300 UNITS/3 ML VIAL SQ SCH ×4 (08:52→20:30)
[2018-09-05] MEDS: *HR* Enoxaparin 120 MG/0.8 ML SYRINGE SQ SCH ×2 (08:52→16:48)
[2018-09-05] MEDS: Metoprolol XL (24 HR) Succ 25 MG TAB.ER.24H PO SCH (08:53)
[2018-09-05] MEDS: predniSONE 20 MG TABLET PO SCH (08:53)
[2018-09-05] MEDS: Furosemide 40 MG TABLET PO SCH (08:53)
[2018-09-05] MEDS: Aspirin 81 MG TAB.CHEW PO SCH (08:54)
[2018-09-05 12:02] LABS: Hematocrit 30.4 % (35.3-44.9); Hemoglobin 8.7 g/dL (11.5-15.4); Mean Corpuscular HGB Conc 28.6 g/dL (31.6-35.5); Mean Corpuscular Hemoglobin 26.3 pg (28.0-33.3); Mean Corpuscular Volume 91.8 fL (83.0-100.0); Mean Platelet Volume 9.1 fL (9.4-12.4); Platelet Count 262 K/mcL (140-400); Red Blood Count 3.31 M/mcL (3.82-4.97); Red Cell Distribution Width 15.8 % (11.5-14.5); White Blood Count 8.8 K/mcL (4.3-11.1)
[2018-09-05] MEDS: *HR* Metoprolol 5 MG/5 ML VIAL IVP PRN ×2 (12:11→18:07)
[2018-09-05] MEDS ORDERED: *HR* Warfarin 1 MG TABLET PO ONE (18:00)
[2018-09-05] MEDS: Melatonin 3 MG TABLET PO PRN (23:14)
[2018-09-06] MEDS: *HR* Metoprolol 5 MG/5 ML VIAL IVP PRN ×4 (03:45→22:46)
[2018-09-06 03:51] LABS: Hematocrit 28.2 % (35.3-44.9); Hemoglobin 8.2 g/dL (11.5-15.4); Mean Corpuscular HGB Conc 29.1 g/dL (31.6-35.5); Mean Corpuscular Hemoglobin 26.4 pg (28.0-33.3); Mean Corpuscular Volume 90.7 fL (83.0-100.0); Mean Platelet Volume 8.8 fL (9.4-12.4); Platelet Count 235 K/mcL (140-400); Red Blood Count 3.11 M/mcL (3.82-4.97); Red Cell Distribution Width 15.6 % (11.5-14.5); White Blood Count 6.6 K/mcL (4.3-11.1)
[2018-09-06 03:59] LABS: INR 1.7; Prothrombin Time 19.5 Seconds (9.4-12.1)
[2018-09-06 04:11] LABS: Blood Urea Nitrogen 26 mg/dL (8-23); Calcium 8.3 mg/dL (8.6-10.3); Carbon Dioxide 36 mEq/L (23-29); Chloride 101 mEq/L (98-107); Glucose 158 mg/dL (70-105); Magnesium 2.1 mg/dL (1.6-2.6); Osmolality,Calculated 302 (280-300); Potassium 3.5 mEq/L (3.5-5.1); Sodium 142 mEq/L (136-145)
[2018-09-06 04:24] LABS: BUN/Creatinine Ratio 34 (6-26); eGFR For African Americans > 60 (> 60); eGFR For Non-African Americans > 60 (> 60)
[2018-09-06] MEDS: *HR* Enoxaparin 120 MG/0.8 ML SYRINGE SQ SCH ×2 (05:09→18:19)
[2018-09-06] MEDS: Insulin LISPRO 300 UNITS/3 ML VIAL SQ SCH ×4 (08:26→20:02)
[2018-09-06] MEDS: predniSONE 20 MG TABLET PO SCH (08:28)
[2018-09-06] MEDS: Furosemide 40 MG TABLET PO SCH (08:28)
[2018-09-06] MEDS: Aspirin 81 MG TAB.CHEW PO SCH (08:28)
[2018-09-06] MEDS: Metoprolol XL (24 HR) Succ 25 MG TAB.ER.24H PO SCH (08:28)
--- NOTE | 2018-09-06 09:57 | Cardiology Progress Note ---
Date of Encounter: 09/06/18 Time of Encounter: 08:00 Assessment and Plan (1) Atrial fibrillation Current Visit: Yes Status: Chronic Per cardiology: -Long standing hx of PAF s/p multiple failed antiarrhythmics, DCCV, and hx of cryoablation in June 2017. -s/p MIKEY guided DCCV 04/25/18-reports has maintained NSR until recent. However does reports short episodes of a.fib. -Presented in Aflutter with RVR; On sotalol 120 mg q12H and Toprol XL 25 mg daily. -Anticoagulated on Coumadin; INR subtherapuetic. Anemia noted, however H/H stable. No abnormal or unusual bleeding reported. -INR 1.7, on therapeutic lovenox until INR >2.0. -Sotalol increased to 160 mg Q12H on 09/04/18, first dose PM. -ECGs 09/05 showed Aflutter (129) QT/QTc stable, 307/383 ms -ECG 09/06 with a.flutter, HR 111. QT 341/QTc 407ms. -Currently s/p 4 total doses of increased sotalol. -Continue sotalol. -Potential cardioversion with MIKEY, prior to discharge pending clinical coarse. Anticipate Sunday. Qualifiers: Atrial fibrillation type: persistent Qualified Code(s): I48.1 - Persistent atrial fibrillation (2) CHF (congestive heart failure) Current Visit: Yes Status: Chronic Per cardiology: -Hx of chronic diastolic CHF. -Most recent TTE 12/30/17: LVEF 60-65%, moderate LVDD, normal RV structure and function, mild-moderate TR, moderate PH, normal wall motion. TTE this admission poor study due to a.fib RVR, however LVEF appears hyperdynamic. -Significant volume overload upon exam, appears to be anasarca. -Weight actually down from last outpt OV by 2 lbs. -Bilateral LE wrapped in kerlix (seeping) and MOSHE bandages. -On po lasix. currently net positive fluid balance, however question accuracy due to weight down 2kg since admission. -Remains significantly volume overloaded, Will resume IV lasix. -Strict i/os, fluid restriction, daily weights. -Chronic steroid use likely contributing to fluid retention. Also reports diet high in sodium. -CHF teaching discussed including importance of Na and fluid restricted diet. Qualifiers: Heart failure type: diastolic Heart failure chronicity: chronic Qualified Code(s): I50.32 - Chronic diastolic (congestive) heart failure Discussion w patient/family: The assessment and plan as outlined above was discussed with the patient who expressed understanding and agreement. All questions were answered. Thank you for involving us in the care of your patient. Please call with any questions. Discussed and reviewed with Subjective Principal diagnosis: a.fib, CHF Interval history: Patient reports symptoms are much improved. Denies complaints. Objective Vital Signs, Last 4 Hours Temp Pulse Resp BP Pulse Ox 09/06/18 07:30 97.6 F 83 18 130/77 98 09/06/18 07:22 16 98 General: Conversant, Other (Mild conversational dyspnea noted. ) HEENT: Atraumatic, Normocephaly, Mucus Membranes Moist Neck: No JVD, Normal carotid pulses Cardiac: Normal S1 and S2, No Murmur, Other (Irregularly irregular) Lungs: Normal Breath Sounds, No Wheeze, Rales, Rhonchi Neuro: Alert and responsive, No focal deficits noted Abdomen: Soft, Non-Tender Skin: No rashes noted on visualized skin Musculoskeletal: No Chest Wall Tenderness Extremities: No Clubbing, No Cyanosis, Normal Pulses, Other (Pitting edema noted to bilateral lower extremities. ) Results 09/06/18 02:02 09/06/18 02:02 Lab Results Active Medications Acetaminophen (Tylenol) 650 mg PO Q6HR PRN PRN Reason: Mild Pain/Fever Stop: 03/05/19 20:16 Aspirin (Aspirin) 81 mg PO DAILY PERFECTO Stop: 03/06/19 09:01 Last Admin: 09/06/18 08:28 Dose: 81 mg Documented by: Atorvastatin Calcium (Lipitor) 40 mg PO HS PERFECTO Stop: 03/06/19 21:01 Last Admin: 09/05/18 20:30 Dose: 40 mg Documented by: Citalopram Hydrobromide (Celexa) 10 mg PO DAILY PERFECTO Stop: 03/06/19 09:01 Last Admin: 09/06/18 08:28 Dose: 10 mg Documented by: Dextrose/Water (Dextrose 50% (Syg)) 25 ml IVP AD PRN PRN Reason: Hypoglycemia Stop: 03/05/19 20:21 Enoxaparin Sodium (Lovenox) 110 mg SQ Q12HCO [facility]; Protocol Stop: 03/07/19 07:31 Last Admin: 09/06/18 05:09 Dose: 110 mg Documented by: Furosemide (Lasix) 40 mg PO DAILY [facility] Stop: 03/06/19 11:31 Last Admin: 09/06/18 08:28 Dose: 40 mg Documented by: Glucagon (Glucagen) 1 mg IM ONCE PRN PRN Reason: Hypoglycemia Stop: 03/05/19 20:21 Glucose (Gluctose) 15 gm PO ONCE PRN PRN Reason: Hypoglycemia Stop: 03/05/19 20:21 Glucose (Gluctose) 30 gm PO ONCE PRN PRN Reason: Hypoglycemia Stop: 03/05/19 20:21 Dextrose (Dextrose 5%) 1,000 mls @ 100 mls/hr IVC .Q10H PRN PRN Reason: HYPOGLYCEMIA Stop: 03/05/19 20:21 Insulin Human Lispro (Humalog) 0 units SQ HS [facility]; Protocol Stop: 03/05/19 21:01 Last Admin: 09/05/18 20:30 Dose: 2 units Documented by: Insulin Human Lispro (Humalog) 0 units SQ TIDAC [facility]; Protocol Stop: 03/06/19 07:31 Last Admin: 09/06/18 08:26 Dose: Not Given Documented by: Melatonin (Melatonin) 3 mg PO HS PRN PRN Reason: Sleep Last Admin: 09/05/18 23:14 Dose: 3 mg Documented by: Metoprolol Succinate (Toprol Xl) 25 mg PO DAILY [facility] Stop: 03/06/19 11:31 Last Admin: 09/06/18 08:28 Dose: 25 mg Documented by: Metoprolol Tartrate (Lopressor) 5 mg IVP Q6HR PRN PRN Reason: HR > 120 Stop: 03/05/19 20:19 Last Admin: 09/06/18 03:45 Dose: 5 mg Documented by: Mometasone Furoate (Asmanex Hfa) 2 puff IH BIDRESP [facility]; Protocol Stop: 03/06/19 10:01 Last Admin: 09/06/18 07:21 Dose: 2 puff Documented by: Naloxone HCl (Narcan) 0.4 mg IVP Q2MPRN PRN PRN Reason: SEE COMMENTS Stop: 03/05/19 20:16 Omeprazole (Prilosec) 20 mg PO DAILY@0730 [facility]; Protocol Stop: 03/06/19 07:31 Last Admin: 09/06/18 08:28 Dose: 20 mg Documented by: Ondansetron HCl (Zofran) 4 mg IVP Q8HR PRN PRN Reason: Nausea And Vomiting Stop: 03/05/19 20:16 Prednisone (Prednisone) 40 mg PO DAILY [facility] Stop: 03/06/19 09:01 Last Admin: 09/06/18 08:28 Dose: 40 mg Documented by: Sotalol HCl (Betapace) 160 mg PO Q12HR [facility] Stop: 03/06/19 18:01 Last Admin: 09/06/18 05:09 Dose: 160 mg Documented by: Tizanidine HCl (Zanaflex) 4 mg PO DAILY PRN PRN Reason: Muscle Spasm Stop: 03/05/19 20:20 Warfarin Sodium (Coumadin Perpt) 1 each PO DAILY@1800 PRN PRN Reason: SEE COMMENTS Stop: 03/06/19 18:01 Laboratory Tests 09/06/18 09/06/18 09/06/18 02:02 02:02 02:02 Hgb 8.2 L INR 1.7 Creatinine 0.76 - Imaging and Cardiology Chest Xray: report reviewed Echo: report reviewed - EKG Interpretation EKG results cardiology: other (Telemetry reviewed with average HR previous 12 hours noted to be 126, a.flutter RVR. PVCs noted. Currently HR 100s at bedside.) Consult Discharge Plan - Plan Referrals: Aleksandar Strickland DO [Primary Care Provider] -
--- NOTE | 2018-09-06 10:13 | Internal Med Progress Note ---
Hospitalist Progress Note - Encounter Date of Encounter: 09/06/18 Time of Encounter: 09:00 - Exam Vitals: Temp Pulse Resp BP Pulse Ox 97.6 F 83 18 130/77 98 09/06/18 07:30 09/06/18 07:30 09/06/18 07:30 09/06/18 07:30 09/06/18 07:30 Exam: Gen.: Vitals noted. No acute distress. AAOx3, resting comfortably in bed. Obese HEENT: PERRL/EOMI, oropharynx clear, Normocephalic, atraumatic, MMM Cardiac: Irregularly irregular rhythm, tachycardic, no murmur, +S1/S2, 3+ BLE edema Pulmonary: Absent breath sounds in bases particularly on right, equal chest expansion, unlabored breathing Abdomen: soft, nontender, BS noted, no guarding Skin: Lower Extremities bandaged. Significant seepage from superior aspect of bandages noted Neuro: A&Ox3, moves all extremities, no focal deficits, sensation intact Psych: Appropriate mood and behavior, AOx3 - Assessment and Plan (1) Atrial fibrillation Current Visit: Yes Status: Chronic Assessment and Plan: -presented with Afib RVR, HR in the 150's -Multiple cardioversions in the past, most recent in April 2018 -Patient remains subtherapeutic INR, 1.7 this morning Plan: -Cardiology cardiovert on Sunday -Continue sotalol therapy at 160 mg every 12 hours -Lovenox every 12 hours for anticoagulation -Pharmacy to dose Coumadin, goal 2-3 (2) CHF (congestive heart failure) Current Visit: Yes Status: Chronic Assessment and Plan: -Patient chronically fluid overloaded secondary to diastolic heart failure in addition to chronic steroid use and high salt diet -Last Echo performed 12/30/17: LVEF 60-65%, normal wall motion normal RV structure -Patient currently reports she is no more swollen than baseline, though appears significantly fluid overloaded -weight is actually down according to most recent outpatient OV -BLE with +3 edema and seepage, Kerlix with MOSHE Bandages applied Plan: -Continue Lasix, BB, ASA -Monitor fluid status -Echo results September 04: -LV systolic function hyperdynamic, indeterminate diastolic function -Mild mitral and tricuspid regurgitation -Will consider repeat echo when heart rate improved (3) HLD (hyperlipidemia) Current Visit: Yes Status: Chronic Assessment and Plan: Continue statin Follow-up outpatient with repeat labs (4) HTN (hypertension) Current Visit: Yes Status: Chronic Assessment and Plan: Currently stable BP Continue to monitor (5) Interstitial lung disease Current Visit: Yes Status: Chronic Assessment and Plan: Patient with known hx of ILD, followed by Pulmonology Currently on steroid regimen and is Status Post Lobectomy of RLL On 2L at home, restarted during admission Plan: -continue supplementing O2 -Monitor for respiratory complaints, no SOB at this time DVT Prophylaxis: Coumadin - Time Spent with Patient Total time spent is greater than 50% in coordination of care (as documented) at patient's floor/unit and/or counseling patient: Internal Medicine: Result - Labs CBC & Chem 7: 09/06/18 02:02 09/06/18 02:02 Labs: Short CBC 09/05/18 09/06/18 Range/Units 11:51 02:02 WBC 8.8 6.6 (4.3-11.1) K/mcL Hgb 8.7 L 8.2 L (11.5-15.4) g/dL Hct 30.4 L 28.2 L (35.3-44.9) % Plt Count 262 235 (140-400) K/mcL BMP 09/06/18 02:02 Sodium 142 Potassium 3.5 Chloride 101 Carbon Dioxide 36 H BUN 26 H Creatinine 0.76 Glucose 158 H Calcium 8.3 L - ABG Interpretation ABG results: PT/INR, D-dimer PT 19.5 Seconds (9.4-12.1) H 09/06/18 02:02 Consult Discharge Plan - Plan Referrals: Aleksandar Strickland DO [Primary Care Provider] - (1) Atrial fibrillation Qualifiers: Atrial fibrillation type: persistent Qualified Code(s): I48.1 - Persistent atrial fibrillation (2) CHF (congestive heart failure) Qualifiers: Heart failure type: diastolic Heart failure chronicity: chronic Qualified Code(s): I50.32 - Chronic diastolic (congestive) heart failure (3) HLD (hyperlipidemia) Qualifiers: Hyperlipidemia type: mixed hyperlipidemia Qualified Code(s): E78.2 - Mixed hyperlipidemia (4) HTN (hypertension) Qualifiers: Hypertension type: essential hypertension Qualified Code(s): I10 - Essential (primary) hypertension
[2018-09-06] MEDS: Furosemide 40 MG/4 ML VIAL IVP SCH (10:47)
--- NOTE | 2018-09-06 15:28 | Electrocardiograph Report ---
[address] [place], [place] [address] Test Date: 2018-09-06 Pat Name: Erica Merida Department: 112 Room: 2A63 Gender: F Rough Carpenter: : 1950 Requested By: Aidee Diaz Order Number: [id number] Reading MD: Lisa Burnett Measurements Intervals [place] Rate: 111 P: [place]: 0 QRS: 13 QRSD: 85 T: 9 QT: 341 QTc: 407 Interpretive Statements ATRIAL FLUTTER/FIBRILLATION WITH RAPID VENTRICULAR RESPONSE NONSPECIFIC ST-WAVE ABNORMALITY ABNORMAL RHYTHM ECG Electronically Signed On 09-06-2018 15:26:43 EDT by Lisa Burnett
--- NOTE | 2018-09-06 15:34 | Electrocardiograph Report ---
[place] [address] Test Date: 2018-09-05 Pat Name: Erica Merida Department: 112 Room: 2A63 Gender: F Fraud Examiner: : 1950 Requested By: Aleksandar Borden Order Number: [id number] Reading MD: Lisa Burnett Measurements Intervals [place] Rate: 127 P: [place]: 0 QRS: 15 QRSD: 78 T: 30 QT: 308 QTc: 383 Interpretive Statements ATRIAL FLUTTER/TACHYCARDIA WITH RAPID VENTRICULAR RESPONSE MODERATE ST DEPRESSION Electronically Signed On 09-06-2018 15:32:37 EDT by Lisa Burnett
--- NOTE | 2018-09-06 15:50 | Electrocardiograph Report ---
[place] [address] Test Date: 2018-09-05 Pat Name: Erica Merida Department: 112 Room: 2A63 Gender: F [employer] Lieutenant: : 1950 Requested By: Aidee Diaz Order Number: [id number] Reading MD: Lisa Burnett Measurements Intervals [place] Rate: 129 P: DC: 0 QRS: 11 QRSD: 84 T: 6 QT: 307 QTc: 383 Interpretive Statements ATRIAL FLUTTER/TACHYCARDIA WITH RAPID VENTRICULAR RESPONSE MODERATE ST DEPRESSION Electronically Signed On 09-06-2018 15:49:12 EDT by Lisa Burnett
--- NOTE | 2018-09-06 16:00 | Electrocardiograph Report ---
[address] [place], [place] [address] Test Date: 2018-09-03 Pat Name: Erica Merida Department: EXAM12 Room: 2A63 Gender: F Opener Tender: : 1950 Requested By: Stephen Durant Order Number: [id number] Reading MD: Lisa Burnett Measurements Intervals [place] Rate: 129 P: ID: QRS: 22 QRSD: 77 T: 72 QT: 309 QTc: 453 Interpretive Statements Atrial fibrillation Low voltage, precordial leads Electronically Signed On 09-06-2018 15:58:45 EDT by Lisa Burnett
[2018-09-06] MEDS ORDERED: *HR* Warfarin 2 MG TABLET PO ONE (18:00)
[2018-09-06] MEDS: Melatonin 3 MG TABLET PO PRN (22:46)
[2018-09-07 03:58] LABS: Hematocrit 28.8 % (35.3-44.9); Hemoglobin 8.3 g/dL (11.5-15.4); Mean Corpuscular HGB Conc 28.8 g/dL (31.6-35.5); Mean Corpuscular Hemoglobin 26.4 pg (28.0-33.3); Mean Corpuscular Volume 91.7 fL (83.0-100.0); Mean Platelet Volume 9.3 fL (9.4-12.4); Platelet Count 251 K/mcL (140-400); Red Blood Count 3.14 M/mcL (3.82-4.97); Red Cell Distribution Width 15.5 % (11.5-14.5); White Blood Count 6.6 K/mcL (4.3-11.1)
--- NOTE | 2018-09-07 04:00 | Event Note ---
Date of Encounter: 09/06/18 Time of Encounter: 19:15 Alerted by charge nurse GAIL Pappas and pts. nurse Inés RN while making initial rounds that the pt. has been tachycardic for awhile. Plan is for eventual cardioversion d/t atrial fibrillation. Pts. HR has been sustaining at 120s to 130s overnight w/o resolve. Pt. is on Betapace. BPs have been stable w/systolic ranging from 100s to 130s. Betapace and metoprolol IVP PRN held for now and pt. started on Cardizem gtt. Pts. HR at 02:38 was 120 bpm and BP was 125/93. 30 minutes after gtt started, pts. HR 68 and BP was 136/84. Nurse instructed to titrate gtt down to 2.5 and leave at this level so we may monitor. Will continue to watch HR closely and adjust gtt dosing as needed overnight. Nurse instructed to alert me immediately of any adverse changes.
[2018-09-07 04:09] LABS: INR 1.6; Prothrombin Time 18.1 Seconds (9.4-12.1)
[2018-09-07] MEDS: *HR* Enoxaparin 120 MG/0.8 ML SYRINGE SQ SCH ×2 (05:57→16:46)
[2018-09-07] MEDS: Insulin LISPRO 300 UNITS/3 ML VIAL SQ SCH ×4 (09:02→22:49)
[2018-09-07] MEDS: predniSONE 20 MG TABLET PO SCH (09:02)
[2018-09-07] MEDS: Furosemide 40 MG/4 ML VIAL IVP SCH ×2 (09:03→10:42)
[2018-09-07] MEDS: Metoprolol XL (24 HR) Succ 25 MG TAB.ER.24H PO SCH (09:03)
[2018-09-07] MEDS: Aspirin 81 MG TAB.CHEW PO SCH (09:03)
--- NOTE | 2018-09-07 09:31 | Internal Med Progress Note ---
<Gregory Martin - Last Filed: 09/07/18 17:51> Hospitalist Progress Note - Encounter Date of Encounter: 09/07/18 - Exam Vitals: Temp Pulse Resp BP Pulse Ox 98.1 F 88 16 119/78 99 09/07/18 16:40 09/07/18 16:40 09/07/18 16:40 09/07/18 16:40 09/07/18 16:40 - Assessment and Plan (1) Atrial fibrillation Current Visit: Yes Status: Chronic (2) CHF (congestive heart failure) Current Visit: Yes Status: Chronic (3) HLD (hyperlipidemia) Current Visit: Yes Status: Chronic (4) Chronic respiratory failure Current Visit: Yes Status: Chronic (5) Type II diabetes mellitus Current Visit: Yes Status: Chronic - Time Spent with Patient Total time spent is greater than 50% in coordination of care (as documented) at patient's floor/unit and/or counseling patient: Internal Medicine: Result - Labs CBC & Chem 7: 09/07/18 03:20 09/07/18 12:20 Labs: Short CBC 09/07/18 Range/Units 03:20 WBC 6.6 (4.3-11.1) K/mcL Hgb 8.3 L (11.5-15.4) g/dL Hct 28.8 L (35.3-44.9) % Plt Count 251 (140-400) K/mcL BMP 09/07/18 12:20 Sodium 142 Potassium 3.6 Chloride 99 Carbon Dioxide 36 H BUN 30 H Creatinine 0.79 Glucose 202 H Calcium 8.4 L - ABG Interpretation ABG results: PT/INR, D-dimer PT 18.1 Seconds (9.4-12.1) H 09/07/18 03:20 Consult Discharge Plan - Plan Referrals: Aleksandar Strickland DO [Primary Care Provider] - - Attending Attestation I examined this patient and my medical decision-making was reviewed [facility]. I agree with the documented findings, disposition and treatment plan as described except to the extent set forth below. Mr Merida is currently admitted for atrial fib. She remains moderate to high risk due to potential for worsening clinical status. Mr Merida is doing OK. She has developed what appears to be a hematoma on L tibia. No fever or chills. No CP or SOB Exam Small area on L tibia - consistent with hematoma. Heart tachy and irreg Plan Continue cardiac meds and anticoagulation. Cardioversion Sunday. <Govind,Caden M - Last Filed: 09/07/18 19:56> Hospitalist Progress Note - Encounter Date of Encounter: 09/07/18 Time of Encounter: 10:00 - Subjective Interval History: Patient was tachycardic overnight, no change from baseline during this admission. Patient was however started on Cardizem drip. Patient's heart rate in the morning dropped down to the 60s. Cardizem drip was held. Of note, patient did report significantly painful nodule on her leg which appeared to be a hematoma about the left anterior tibia. Doppler imaging was negative for DVT. We will continue anticoagulation as per cardiology recommendations. - Exam Vitals: Temp Pulse Resp BP Pulse Ox 98.0 F 69 19 147/78 100 09/07/18 07:34 09/07/18 07:34 09/07/18 07:34 09/07/18 07:34 09/07/18 07:34 Exam: Gen.: Vitals noted. Moderate pain from LLE nodule, appears to be hematoma. HEENT: PERRL/EOMI, oropharynx clear, Normocephalic, atraumatic, MMM Cardiac: Irregularly irregular rhythm, tachycardic, no murmur, +S1/S2, 3+ BLE edema Pulmonary: Absent breath sounds in bases particularly on right, equal chest expansion, unlabored breathing Abdomen: soft, nontender, BS noted, no guarding Skin: Significant seepage from superior aspect of RLE bandage. LLE bandage removed due to pain from developing hematoma Neuro: A&Ox3, moves all extremities, no focal deficits, sensation intact Psych: Appropriate mood and behavior - Assessment and Plan (1) Atrial fibrillation Current Visit: Yes Status: Chronic Assessment and Plan: -presented with Afib RVR, HR in the 150's -Multiple cardioversions in the past, most recent in April 2018 -Patient remains subtherapeutic INR, 1.7 this morning Plan: -Cardiology cardiovert on Sunday -Continue sotalol therapy at 160 mg every 12 hours -Lovenox every 12 hours for anticoagulation -Pharmacy to dose Coumadin, goal 2-3 (2) CHF (congestive heart failure) Current Visit: Yes Status: Chronic Assessment and Plan: -Patient chronically fluid overloaded secondary to diastolic heart failure in addition to chronic steroid use and high salt diet -Last Echo performed 12/30/17: LVEF 60-65%, normal wall motion normal RV structure -Patient currently reports she is no more swollen than baseline, though appears significantly fluid overloaded -weight is actually down according to most recent outpatient OV -BLE with +3 edema and seepage, Kerlix with MOSHE Bandages applied Plan: -Continue Lasix, BB, ASA -Monitor fluid status -Echo results September 04: -LV systolic function hyperdynamic, indeterminate diastolic function -Mild mitral and tricuspid regurgitation -Will consider repeat echo when heart rate improved (3) HLD (hyperlipidemia) Current Visit: Yes Status: Chronic Assessment and Plan: Continue statin Follow-up outpatient with repeat labs (4) HTN (hypertension) Current Visit: Yes Status: Chronic Assessment and Plan: Patient has had stable blood pressure during admission We will continue to monitor (5) Interstitial lung disease Current Visit: Yes Status: Chronic Assessment and Plan: Patient with known hx of ILD, followed by Pulmonology Currently on steroid regimen and is Status Post Lobectomy of RLL On 2L at home, restarted during admission Plan: -continue supplementing O2 -Monitor for respiratory complaints, no SOB at this time DVT Prophylaxis: Coumadin and Lovenox - Time Spent with Patient Total time spent is greater than 50% in coordination of care (as documented) at patient's floor/unit and/or counseling patient: Internal Medicine: Result - Labs CBC & Chem 7: 09/07/18 03:20 09/07/18 12:20 Labs: Short CBC 09/07/18 Range/Units 03:20 WBC 6.6 (4.3-11.1) K/mcL Hgb 8.3 L (11.5-15.4) g/dL Hct 28.8 L (35.3-44.9) % Plt Count 251 (140-400) K/mcL - ABG Interpretation ABG results: PT/INR, D-dimer PT 18.1 Seconds (9.4-12.1) H 09/07/18 03:20 <Gregory Martin - Last Filed: 09/07/18 17:51> (1) Atrial fibrillation Qualifiers: Atrial fibrillation type: persistent Qualified Code(s): I48.1 - Persistent atrial fibrillation (2) CHF (congestive heart failure) Qualifiers: Heart failure type: diastolic Heart failure chronicity: chronic Qualified Code(s): I50.32 - Chronic diastolic (congestive) heart failure (3) HLD (hyperlipidemia) Qualifiers: Hyperlipidemia type: mixed hyperlipidemia Qualified Code(s): E78.2 - Mixed hyperlipidemia (4) Chronic respiratory failure Qualifiers: Respiratory failure complication: hypoxia Qualified Code(s): J96.11 - Chronic respiratory failure with hypoxia (5) Type II diabetes mellitus Qualifiers: Diabetes mellitus terminal gauger supervisor insulin use: without terminal gauger supervisor use Diabetes mellitus complication status: without complication Qualified Code(s): E11.9 - Type 2 diabetes mellitus without complications <Caden Faust - Last Filed: 09/07/18 19:56> (1) Atrial fibrillation Qualifiers: Atrial fibrillation type: persistent Qualified Code(s): I48.1 - Persistent atrial fibrillation (2) CHF (congestive heart failure) Qualifiers: Heart failure type: diastolic Heart failure chronicity: chronic Qualified Code(s): I50.32 - Chronic diastolic (congestive) heart failure (3) HLD (hyperlipidemia) Qualifiers: Hyperlipidemia type: mixed hyperlipidemia Qualified Code(s): E78.2 - Mixed hyperlipidemia (4) HTN (hypertension) Qualifiers: Hypertension type: essential hypertension Qualified Code(s): I10 - Essential (primary) hypertension
[2018-09-07] MEDS: *HR* HYDROcodone/Acet 5/325 mg TABLET PO PRN ×2 (10:38→16:53)
--- NOTE | 2018-09-07 11:54 | Cardiology Progress Note ---
Date of Encounter: 09/07/18 Time of Encounter: 09:45 Assessment and Plan (1) Atrial fibrillation Current Visit: Yes Status: Chronic Per cardiology: -Long standing hx of PAF s/p multiple failed antiarrhythmics, DCCV, and hx of cryoablation in June 2017. -s/p MIKEY guided DCCV 04/25/18-reports has maintained NSR until recent. However does reports short episodes of a.fib. -Presented in Aflutter with RVR; On sotalol 120 mg q12H and Toprol XL 25 mg daily. -Anticoagulated on Coumadin; INR subtherapuetic. Anemia noted, however H/H stable. No abnormal or unusual bleeding reported. -INR 1.6, on therapeutic lovenox until INR >2.0. Must continue lovenox while INR subtherapeutic. -Sotalol increased to 160 mg Q12H on 09/04/18, first dose PM. -ECGs 09/05 showed Aflutter (129) QT/QTc stable, 307/383 ms -ECG 09/06 with a.flutter, HR 111. QT 341/QTc 407ms. -ECG 09/07 with a.flutter, HR 68. QT 405, QTc 423ms. -Currently s/p 5 total doses of increased sotalol. -Average HR previous 12 hours noted to be 102,a .fib. Anticipate that pateint will be tachycardic while in a.fib/flutter. Patient is historically bradycardic when in SR. -Continue sotalol. Continue lovenox. Discontinue cardizem drip. -Potential cardioversion with MIKEY, prior to discharge pending clinical coarse. Anticipate Sunday. Qualifiers: Atrial fibrillation type: persistent Qualified Code(s): I48.1 - Persistent atrial fibrillation (2) CHF (congestive heart failure) Current Visit: Yes Status: Chronic Per cardiology: -Hx of chronic diastolic CHF. -Most recent TTE 12/30/17: LVEF 60-65%, moderate LVDD, normal RV structure and function, mild-moderate TR, moderate PH, normal wall motion. TTE this admission poor study due to a.fib RVR, however LVEF appears hyperdynamic. -Remains volume overloaded on exam. -Bilateral LE wrapped in kerlix (seeping) and MOSHE bandages. -On IV lasix. currently net positive fluid balance, however question accuracy due to weight down 2kg since admission. -Remains significantly volume overloaded, Continue IV lasix. -Strict i/os, fluid restriction, daily weights. -Chronic steroid use likely contributing to fluid retention. Also reports diet high in sodium. -CHF teaching discussed including importance of Na and fluid restricted diet. Qualifiers: Heart failure type: diastolic Heart failure chronicity: chronic Qualified Code(s): I50.32 - Chronic diastolic (congestive) heart failure Discussion w patient/family: The assessment and plan as outlined above was discussed with the patient who expressed understanding and agreement. All questions were answered. Thank you for involving us in the care of your patient. Please call with any questions. Discussed and reviewed with . Subjective Principal diagnosis: a.fib, CHF Interval history: Patient reports symptoms are improved. Does report possible blister on left barboza. Objective Vital Signs, Last 4 Hours Temp Pulse Resp BP Pulse Ox 09/07/18 11:40 97.9 F 92 16 127/95 99 09/07/18 09:36 16 147/78 99 General: Conversant, No Apparent Distress HEENT: Atraumatic, Normocephaly, Mucus Membranes Moist Neck: No JVD, Normal carotid pulses Cardiac: Normal S1 and S2, No Murmur, Other (Irregularly irregular.) Lungs: Normal Breath Sounds, No Wheeze, Rales, Rhonchi Neuro: Alert and responsive, No focal deficits noted Abdomen: Soft, Non-Tender Skin: No rashes noted on visualized skin, Other (left simon blistered area noted. ) Musculoskeletal: No Chest Wall Tenderness Extremities: No Clubbing, No Cyanosis, Normal Pulses, Other (1+ bilateral lower extremity pitting edema noted. ) Results 09/07/18 03:20 09/06/18 02:02 Lab Results Active Medications Acetaminophen (Tylenol) 650 mg PO Q6HR PRN PRN Reason: Mild Pain/Fever Stop: 03/05/19 20:16 Hydrocodone Bitart/Acetaminophen ([place] 5-325 Mg) 1 tab PO Q6HR PRN PRN Reason: Pain Stop: 03/09/19 09:43 Last Admin: 09/07/18 10:38 Dose: 1 tab Documented by: Aspirin (Aspirin) 81 mg PO DAILY PERFECTO Stop: 01/02/20 09:01 Last Admin: 09/07/18 09:03 Dose: 81 mg Documented by: Atorvastatin Calcium (Lipitor) 40 mg PO HS ON LICENSE OF [facility] Stop: 03/06/19 21:01 Last Admin: 09/06/18 21:00 Dose: 40 mg Documented by: Citalopram Hydrobromide (Celexa) 10 mg PO DAILY ON LICENSE OF [facility] Stop: 03/06/19 09:01 Last Admin: 09/07/18 09:03 Dose: 10 mg Documented by: Dextrose/Water (Dextrose 50% (Syg)) 25 ml IVP AD PRN PRN Reason: Hypoglycemia Stop: 03/05/19 20:21 Enoxaparin Sodium (Lovenox) 110 mg SQ Q12HCO ON LICENSE OF [facility]; Protocol Stop: 03/07/19 07:31 Last Admin: 09/07/18 05:57 Dose: 110 mg Documented by: Furosemide (Lasix) 40 mg IVP DAILY ON LICENSE OF [facility] Stop: 03/08/19 10:16 Last Admin: 09/07/18 10:42 Dose: 40 mg Documented by: Glucagon (Glucagen) 1 mg IM ONCE PRN PRN Reason: Hypoglycemia Stop: 03/05/19 20:21 Glucose (Gluctose) 15 gm PO ONCE PRN PRN Reason: Hypoglycemia Stop: 03/05/19 20:21 Glucose (Gluctose) 30 gm PO ONCE PRN PRN Reason: Hypoglycemia Stop: 03/05/19 20:21 Dextrose (Dextrose 5%) 1,000 mls @ 100 mls/hr IVC .Q10H PRN PRN Reason: HYPOGLYCEMIA Stop: 03/05/19 20:21 Insulin Human Lispro (Humalog) 0 units SQ HS ON LICENSE OF [facility]; Protocol Stop: 03/05/19 21:01 Last Admin: 09/06/18 20:02 Dose: Not Given Documented by: Insulin Human Lispro (Humalog) 0 units SQ TIDAC ON LICENSE OF [facility]; Protocol Stop: 03/06/19 07:31 Last Admin: 09/07/18 09:02 Dose: Not Given Documented by: Melatonin (Melatonin) 3 mg PO HS PRN PRN Reason: Sleep Last Admin: 09/06/18 22:46 Dose: 3 mg Documented by: Metoprolol Succinate (Toprol Xl) 25 mg PO DAILY ON [facility] OF [facility] Stop: 03/06/19 11:31 Last Admin: 09/07/18 09:03 Dose: 25 mg Documented by: Metoprolol Tartrate (Lopressor) 5 mg IVP Q6HR PRN PRN Reason: HR > 120 Stop: 03/05/19 20:19 Last Admin: 09/06/18 22:46 Dose: 5 mg Documented by: Mometasone Furoate (Asmanex Hfa) 2 puff IH BIDRESP ON LICENSE OF [facility]; Protocol Stop: 03/06/19 10:01 Last Admin: 09/07/18 09:36 Dose: 2 puff Documented by: Naloxone HCl (Narcan) 0.4 mg IVP Q2MPRN PRN PRN Reason: SEE COMMENTS Stop: 03/05/19 20:16 Omeprazole (Prilosec) 20 mg PO DAILY@0730 ON [facility] OF [facility]; Protocol Stop: 03/06/19 07:31 Last Admin: 09/07/18 09:03 Dose: 20 mg Documented by: Ondansetron HCl (Zofran) 4 mg IVP Q8HR PRN PRN Reason: Nausea And Vomiting Stop: 03/05/19 20:16 Prednisone (Prednisone) 40 mg PO DAILY ON [facility] OF [facility] Stop: 03/06/19 09:01 Last Admin: 09/07/18 09:02 Dose: 40 mg Documented by: Sotalol HCl (Betapace) 160 mg PO Q12HR ON LICENSE OF [facility] Stop: 03/06/19 18:01 Last Admin: 09/07/18 10:36 Dose: 160 mg Documented by: Tizanidine HCl (Zanaflex) 4 mg PO DAILY PRN PRN Reason: Muscle Spasm Stop: 03/05/19 20:20 Warfarin Sodium (Coumadin Perpt) 1 each PO DAILY@1800 PRN PRN Reason: SEE COMMENTS Stop: 03/06/19 18:01 - Imaging and Cardiology Chest Xray: report reviewed Echo: report reviewed - EKG Interpretation EKG results cardiology: other (Telemetry reviewed with average HR previous 12 hours noted to be 102, a.fib. PVCs noted.) Consult Discharge Plan - Plan Referrals: Aleksandar Strickland DO [Primary Care Provider] -
[2018-09-07 13:07] LABS: BUN/Creatinine Ratio 38 (6-26); Blood Urea Nitrogen 30 mg/dL (8-23); Calcium 8.4 mg/dL (8.6-10.3); Carbon Dioxide 36 mEq/L (23-29); Chloride 99 mEq/L (98-107); Glucose 202 mg/dL (70-105); Osmolality,Calculated 306 (280-300); Potassium 3.6 mEq/L (3.5-5.1); Sodium 142 mEq/L (136-145); eGFR For African Americans > 60 (> 60); eGFR For Non-African Americans > 60 (> 60)
[2018-09-07] MEDS ORDERED: *HR* Warfarin 2 MG TABLET PO ONE (18:00)
[2018-09-07] MEDS: *HR* Metoprolol 5 MG/5 ML VIAL IVP PRN (18:10)
[2018-09-07] MEDS ORDERED: *HR* Metoprolol 5 MG/5 ML VIAL IVP ONE (20:35)
[2018-09-07] MEDS: Melatonin 3 MG TABLET PO PRN (22:44)
[2018-09-08 05:08] LABS: Hematocrit 28.5 % (35.3-44.9); Hemoglobin 8.2 g/dL (11.5-15.4); Mean Corpuscular HGB Conc 28.8 g/dL (31.6-35.5); Mean Corpuscular Volume 90.5 fL (83.0-100.0); Mean Platelet Volume 9.1 fL (9.4-12.4); Platelet Count 236 K/mcL (140-400); Red Blood Count 3.15 M/mcL (3.82-4.97); Red Cell Distribution Width 15.5 % (11.5-14.5); White Blood Count 6.2 K/mcL (4.3-11.1)
[2018-09-08 05:22] LABS: INR 1.9; Prothrombin Time 21.6 Seconds (9.4-12.1)
[2018-09-08 05:29] LABS: BUN/Creatinine Ratio 41 (6-26); Blood Urea Nitrogen 29 mg/dL (8-23); Calcium 8.3 mg/dL (8.6-10.3); Carbon Dioxide 40 mEq/L (23-29); Chloride 101 mEq/L (98-107); Glucose 125 mg/dL (70-105); Magnesium 2.1 mg/dL (1.6-2.6); Osmolality,Calculated 305 (280-300); Sodium 144 mEq/L (136-145); eGFR For African Americans > 60 (> 60); eGFR For Non-African Americans > 60 (> 60)
[2018-09-08] MEDS: *HR* Enoxaparin 120 MG/0.8 ML SYRINGE SQ SCH ×2 (05:42→17:38)
--- NOTE | 2018-09-08 07:27 | Internal Med Progress Note ---
<GovindCaden M - Last Filed: 09/08/18 11:39> Hospitalist Progress Note - Encounter Date of Encounter: 09/08/18 Time of Encounter: 10:00 - Subjective Interval History: Ms. Merida was seen and examined at bedside this morning. She continues to report left lower leg pain and tenderness though feels the current pain manageme nt regimen is adequate. She has no new complaints at this time. She no longer has palpitations and she appears to have converted to normal sinus rhythm. However, EKG did reveal a second-degree AV block type II. Cardiology has been made aware, and will be in discussion with the patient about her treatment options moving forward. At this time, cardioversion is not indicated and will not be performed as planned tomorrow. - Exam Vitals: Temp Pulse Resp BP Pulse Ox 97.5 F L 67 16 112/74 100 09/08/18 07:10 09/08/18 07:10 09/08/18 07:10 09/08/18 07:10 09/08/18 07:10 Exam: Gen.: Vitals noted. Moderate pain from LLE nodule, appears to be hematoma. HEENT: PERRL/EOMI, oropharynx clear, Normocephalic, atraumatic, MMM Cardiac: Regular rate, normal sinus rhythm with second-degree AV block, no murmur, +S1/S2, 3+ BLE edema Pulmonary: Absent breath sounds in bases particularly on right, equal chest expansion, unlabored breathing Abdomen: soft, nontender, BS noted, no guarding Skin: Significant seepage from superior aspect of RLE bandage. LLE bandage removed due to pain from developing hematoma Neuro: A&Ox3, moves all extremities, no focal deficits, sensation intact Psych: Appropriate mood and behavior - Assessment and Plan (1) Atrial fibrillation Current Visit: Yes Status: Chronic Assessment and Plan: -presented with Afib RVR, HR in the 150's -Multiple cardioversions in the past, most recent in April 2018 -Patient remains subtherapeutic INR however is trending up, 1.9 this morning -Patient appears to have self converted back to normal sinus rhythm -EKG shows AV block second-degree, type II -Cardiology continuing to follow the patient, appreciate recommendations Plan: -No plan for cardioversion given patient is back in normal sinus rhythm -Patient has failed multiple treatment options for her paroxysmal A. fib -Given her new second-degree AV block, patient will likely require maggie ablation with pacer implementation -We will follow cardiology recommendations -Continue sotalol therapy at 160 mg every 12 hours -Lovenox every 12 hours for anticoagulation -Pharmacy to dose Coumadin, goal 2-3 (2) CHF (congestive heart failure) Current Visit: Yes Status: Chronic Assessment and Plan: -Patient chronically fluid overloaded secondary to diastolic heart failure in addition to chronic steroid use and high salt diet -Last Echo performed 12/30/17: LVEF 60-65%, normal wall motion normal RV structure -Patient currently reports she is no more swollen than baseline, though appears fluid overloaded -weight is actually down according to most recent outpatient OV -BLE with +3 edema and seepage, Kerlix with MOSHE Bandages applied -Patient's bicarbonate and serum osmolality did increase from yesterday Plan: -We will hold Lasix at this time -We will continue beta brent and aspirin -Monitor fluid status -Echo results September 04: -LV systolic function hyperdynamic, indeterminate diastolic function -Mild mitral and tricuspid regurgitation -Will consider repeat echo when heart rate improved (3) HLD (hyperlipidemia) Current Visit: Yes Status: Chronic Assessment and Plan: Continue statin follow up with outpatient repeat labs (4) HTN (hypertension) Current Visit: Yes Status: Chronic Assessment and Plan: Patient has had stable blood pressure during admission Continue to monitor (5) Interstitial lung disease Current Visit: Yes Status: Chronic Assessment and Plan: Patient with a known history of interstitial lung disease, followed by [facility] pulmonology Currently on steroid regimen and is status post lobectomy of right lower lobe Chronically on 2 L at home, restarted during admission Plan: -We will continue to supplement oxygen and monitor pulse ox -Patient without respiratory complaints at this time -Continue to monitor DVT Prophylaxis: Coumadin and Lovenox - Time Spent with Patient Total time spent is greater than 50% in coordination of care (as documented) at patient's floor/unit and/or counseling patient: Internal Medicine: Result - Labs CBC & Chem 7: 09/08/18 04:00 09/08/18 04:50 Labs: Short CBC 09/08/18 Range/Units 04:00 WBC 6.2 (4.3-11.1) K/mcL Hgb 8.2 L (11.5-15.4) g/dL Hct 28.5 L (35.3-44.9) % Plt Count 236 (140-400) K/mcL BMP 09/07/18 09/08/18 12:20 04:50 Sodium 142 144 Potassium 3.6 4.0 Chloride 99 101 Carbon Dioxide 36 H 40 H* BUN 30 H 29 H Creatinine 0.79 0.70 Glucose 202 H 125 H Calcium 8.4 L 8.3 L - ABG Interpretation ABG results: PT/INR, D-dimer PT 21.6 Seconds (9.4-12.1) H 09/08/18 04:00 Consult Discharge Plan - Plan Referrals: Aleksandar Strickland DO [Primary Care Provider] - <Gregory Martin - Last Filed: 09/08/18 16:24> Hospitalist Progress Note - Encounter Date of Encounter: 09/08/18 - Exam Vitals: Temp Pulse Resp BP Pulse Ox 98.1 F 73 17 109/62 98 09/08/18 11:30 09/08/18 11:30 09/08/18 11:30 09/08/18 11:30 09/08/18 11:30 - Assessment and Plan (1) Atrial fibrillation Current Visit: Yes Status: Chronic Assessment and Plan: Awaiting final recommendations per cardiology. (2) CHF (congestive heart failure) Current Visit: Yes Status: Chronic (3) HLD (hyperlipidemia) Current Visit: Yes Status: Chronic (4) Chronic respiratory failure Current Visit: Yes Status: Chronic (5) Type II diabetes mellitus Current Visit: Yes Status: Chronic - Time Spent with Patient Total time spent is greater than 50% in coordination of care (as documented) at patient's floor/unit and/or counseling patient: Internal Medicine: Result - Labs CBC & Chem 7: 09/08/18 04:00 09/08/18 04:50 Labs: Short CBC 09/08/18 Range/Units 04:00 WBC 6.2 (4.3-11.1) K/mcL Hgb 8.2 L (11.5-15.4) g/dL Hct 28.5 L (35.3-44.9) % Plt Count 236 (140-400) K/mcL BMP 09/08/18 04:50 Sodium 144 Potassium 4.0 Chloride 101 Carbon Dioxide 40 H* BUN 29 H Creatinine 0.70 Glucose 125 H Calcium 8.3 L - ABG Interpretation ABG results: PT/INR, D-dimer PT 21.6 Seconds (9.4-12.1) H 09/08/18 04:00 - Attending Attestation I examined this patient and my medical decision-making was reviewed with the Resident Physician on 09/08/18. I agree with the documented findings, disposition and treatment plan as described except to the extent set forth below. Ms Merida is currently admitted with atrial fibrillation. She remains moderate to high risk due to potential for worsening clinical status. Ms Merida converted to sinus rhythm. She is feeling better at this time. No fever or chills. Still with swelling in L leg - more discrete. Heart reg now. Lungs clear. Further plan as per cardiology - ? discharge tomorrow. <Caden Faust M - Last Filed: 09/08/18 11:39> (1) Atrial fibrillation Qualifiers: Atrial fibrillation type: persistent Qualified Code(s): I48.1 - Persistent atrial fibrillation (2) CHF (congestive heart failure) Qualifiers: Heart failure type: diastolic Heart failure chronicity: chronic Qualified Code(s): I50.32 - Chronic diastolic (congestive) heart failure (3) HLD (hyperlipidemia) Qualifiers: Hyperlipidemia type: mixed hyperlipidemia Qualified Code(s): E78.2 - Mixed hyperlipidemia (4) HTN (hypertension) Qualifiers: Hypertension type: essential hypertension Qualified Code(s): I10 - Essential (primary) hypertension <Gregory Martin - Last Filed: 09/08/18 16:24> (1) Atrial fibrillation Qualifiers: Atrial fibrillation type: persistent Qualified Code(s): I48.1 - Persistent atrial fibrillation (2) CHF (congestive heart failure) Qualifiers: Heart failure type: diastolic Heart failure chronicity: chronic Qualified Code(s): I50.32 - Chronic diastolic (congestive) heart failure (3) HLD (hyperlipidemia) Qualifiers: Hyperlipidemia type: mixed hyperlipidemia Qualified Code(s): E78.2 - Mixed hyperlipidemia (4) Chronic respiratory failure Qualifiers: Respiratory failure complication: hypoxia Qualified Code(s): J96.11 - Chronic respiratory failure with hypoxia (5) Type II diabetes mellitus Qualifiers: Diabetes mellitus shelter insulin use: without termite exterminator helper use Diabetes mellitus complication status: without complication Qualified Code(s): E11.9 - Type 2 diabetes mellitus without complications
[2018-09-08] MEDS: Insulin LISPRO 300 UNITS/3 ML VIAL SQ SCH ×4 (08:26→21:29)
[2018-09-08] MEDS: Metoprolol XL (24 HR) Succ 25 MG TAB.ER.24H PO SCH (08:27)
[2018-09-08] MEDS: Furosemide 40 MG/4 ML VIAL IVP SCH (08:27)
[2018-09-08] MEDS: predniSONE 20 MG TABLET PO SCH (08:27)
[2018-09-08] MEDS: Aspirin 81 MG TAB.CHEW PO SCH (08:27)
[2018-09-08] MEDS ORDERED: 0.9 % Sodium Chloride 1,000 ML IVC SCH (09:30)
[2018-09-08] MEDS: *HR* HYDROcodone/Acet 5/325 mg TABLET PO PRN ×3 (09:39→21:31)
--- NOTE | 2018-09-08 12:24 | Cardiology Progress Note ---
Date of Encounter: 09/08/18 Time of Encounter: 11:00 Assessment and Plan (1) Atrial fibrillation Current Visit: Yes Status: Chronic Per cardiology: -Long standing hx of PAF s/p multiple failed antiarrhythmics, DCCV, and hx of cryoablation in June 2017. -s/p MIKEY guided DCCV 04/25/18-reports has maintained NSR until recent. However does reports short episodes of a.fib. -Presented in Aflutter with RVR; On sotalol 120 mg q12H and Toprol XL 25 mg daily. -Anticoagulated on Coumadin; INR subtherapuetic. Anemia noted, however H/H stable. No abnormal or unusual bleeding reported. -INR 1.9, on therapeutic lovenox until INR >2.0. Must continue lovenox while INR subtherapeutic. -Sotalol increased to 160 mg Q12H on 09/04/18, first dose PM. -ECGs 09/05 showed Aflutter (129) QT/QTc stable, 307/383 ms -ECG 09/06 with a.flutter, HR 111. QT 341/QTc 407ms. -ECG 09/07 with a.flutter, HR 68. QT 405, QTc 423ms. -ECG 09/08 with SR, HR 64. QT 430/QTc 439ms. -Currently s/p 7 total doses of increased sotalol. -Continue sotalol. Continue lovenox until INR therapeutic. If INR subtherapeutic at time of discharge, recommend bridging with lovenox. Qualifiers: Atrial fibrillation type: persistent Qualified Code(s): I48.1 - Persistent atrial fibrillation (2) CHF (congestive heart failure) Current Visit: Yes Status: Chronic Per cardiology: -Hx of chronic diastolic CHF. -Most recent TTE 12/30/17: LVEF 60-65%, moderate LVDD, normal RV structure and function, mild-moderate TR, moderate PH, normal wall motion. TTE this admission poor study due to a.fib RVR, however LVEF appears hyperdynamic. -Remains volume overloaded on exam. -Bilateral LE wrapped in kerlix (seeping) and MOSHE bandages. -On IV lasix. currently net positive fluid balance, however question accuracy due to weight down 2kg since admission. -Now with increase CO2 level. Lasix held, Being given gentle hydration and diamox per primary team. -Will continue to monitor. -Strict i/os, fluid restriction, daily weights. -Chronic steroid use likely contributing to fluid retention. Also reports diet high in sodium. -CHF teaching discussed including importance of Na and fluid restricted diet. Qualifiers: Heart failure type: diastolic Heart failure chronicity: chronic Qualified Code(s): I50.32 - Chronic diastolic (congestive) heart failure Discussion w patient/family: The assessment and plan as outlined above was discussed with the patient who e xpressed understanding and agreement. All questions were answered. Thank you for involving us in the care of your patient. Please call with any questions. Discussed and reviewed with . Subjective Principal diagnosis: a.fib, CHF Interval history: Patient reports symptoms are improved. States she currently still feels so much better. Objective Vital Signs, Last 4 Hours Temp Pulse Resp BP Pulse Ox 09/08/18 11:30 98.1 F 73 17 109/62 98 General: Conversant, No Apparent Distress HEENT: Atraumatic, Normocephaly, Mucus Membranes Moist Neck: No JVD, Normal carotid pulses Cardiac: Reg Rate and Rhythm, Normal S1 and S2, No Murmur Lungs: Normal Breath Sounds, No Wheeze, Rales, Rhonchi Neuro: Alert and responsive, No focal deficits noted Abdomen: Soft, Non-Tender Skin: No rashes noted on visualized skin Musculoskeletal: No Chest Wall Tenderness Extremities: No Clubbing, No Cyanosis, Normal Pulses, Other (2+ bilateral lower extremity pitting edema noted. ) Results 09/08/18 04:00 09/08/18 04:50 Lab Results Active Medications Acetaminophen (Tylenol) 650 mg PO Q6HR PRN PRN Reason: Mild Pain/Fever Stop: 03/05/19 20:16 Hydrocodone Bitart/Acetaminophen ([place] 5-325 Mg) 1 tab PO Q6HR PRN PRN Reason: Pain Stop: 03/09/19 09:43 Last Admin: 09/08/18 09:39 Dose: 1 tab Documented by: Aspirin (Aspirin) 81 mg PO DAILY PER[facility]O Stop: 03/06/19 09:01 Last Admin: 09/08/18 08:27 Dose: 81 mg Documented by: Atorvastatin Calcium (Lipitor) 40 mg PO HS PERFECTO Stop: 03/06/19 21:01 Last Admin: 09/07/18 20:44 Dose: 40 mg Documented by: Citalopram Hydrobromide (Celexa) 10 mg PO DAILY [facility] Stop: 03/06/19 09:01 Last Admin: 09/08/18 08:27 Dose: 10 mg Documented by: Dextrose/Water (Dextrose 50% (Syg)) 25 ml IVP AD PRN PRN Reason: Hypoglycemia Stop: 03/05/19 20:21 Enoxaparin Sodium (Lovenox) 110 mg SQ Q12HCO [facility]; Protocol Stop: 03/07/19 07:31 Last Admin: 09/08/18 05:42 Dose: 110 mg Documented by: Glucagon (Glucagen) 1 mg IM ONCE PRN PRN Reason: Hypoglycemia Stop: 03/05/19 20:21 Glucose (Gluctose) 15 gm PO ONCE PRN PRN Reason: Hypoglycemia Stop: 03/05/19 20:21 Glucose (Gluctose) 30 gm PO ONCE PRN PRN Reason: Hypoglycemia Stop: 03/05/19 20:21 Dextrose (Dextrose 5%) 1,000 mls @ 100 mls/hr IVC .Q10H PRN PRN Reason: HYPOGLYCEMIA Stop: 03/05/19 20:21 Insulin Human Lispro (Humalog) 0 units SQ HS [facility]; Protocol Stop: 03/05/19 21:01 Last Admin: 09/07/18 22:49 Dose: 4 units Documented by: Insulin Human Lispro (Humalog) 0 units SQ TIDAC [facility]; Protocol Stop: 03/06/19 07:31 Last Admin: 09/08/18 08:26 Dose: 2 units Documented by: Melatonin (Melatonin) 3 mg PO HS PRN PRN Reason: Sleep Last Admin: 09/07/18 22:44 Dose: 3 mg Documented by: Metoprolol Succinate (Toprol Xl) 25 mg PO DAILY [facility] Stop: 03/06/19 11:31 Last Admin: 09/08/18 08:27 Dose: 25 mg Documented by: Metoprolol Tartrate (Lopressor) 5 mg IVP Q6HR PRN PRN Reason: HR > 120 Stop: 03/05/19 20:19 Last Admin: 09/07/18 18:10 Dose: 5 mg Documented by: Mometasone Furoate (Asmanex Hfa) 2 puff IH BIDRESP [facility]; Protocol Stop: 03/06/19 10:01 Last Admin: 09/08/18 07:27 Dose: 2 puff Documented by: Naloxone HCl (Narcan) 0.4 mg IVP Q2MPRN PRN PRN Reason: SEE COMMENTS Stop: 03/05/19 20:16 Omeprazole (Prilosec) 20 mg PO DAILY@0730 [facility]; Protocol Stop: 03/06/19 07:31 Last Admin: 09/08/18 08:26 Dose: 20 mg Documented by: Ondansetron HCl (Zofran) 4 mg IVP Q8HR PRN PRN Reason: Nausea And Vomiting Stop: 03/05/19 20:16 Prednisone (Prednisone) 40 mg PO DAILY [facility] Stop: 03/06/19 09:01 Last Admin: 09/08/18 08:27 Dose: 40 mg Documented by: Sotalol HCl (Betapace) 160 mg PO 1030,2230 [facility] Stop: 03/06/19 18:01 Last Admin: 09/08/18 10:54 Dose: 160 mg Documented by: Tizanidine HCl (Zanaflex) 4 mg PO DAILY PRN PRN Reason: Muscle Spasm Stop: 03/05/19 20:20 Warfarin Sodium (Coumadin Perpt) 1 each PO DAILY@1800 PRN PRN Reason: SEE COMMENTS Stop: 03/06/19 18:01 Laboratory Tests 09/08/18 09/08/18 09/08/18 04:00 04:00 04:50 Hgb 8.2 L INR 1.9 Creatinine 0.70 - Imaging and Cardiology Chest Xray: report reviewed Echo: report reviewed - EKG Interpretation EKG results cardiology: other (Telemetry reviewed with average HR previous 12 hours noted to be 94,a .fib. However, now in SR.) Consult Discharge Plan - Plan Referrals: Aleksandar Strickland DO [Primary Care Provider] -
[2018-09-08] MEDS ORDERED: *HR* Warfarin 2 MG TABLET PO ONE (18:00)
[2018-09-08] MEDS: Melatonin 3 MG TABLET PO PRN (21:32)
[2018-09-09] MEDS: *HR* HYDROcodone/Acet 5/325 mg TABLET PO PRN ×3 (04:34→21:00)
[2018-09-09 05:05] LABS: Hemoglobin 7.8 g/dL (11.5-15.4); Red Cell Distribution Width 15.6 % (11.5-14.5)
[2018-09-09 05:07] LABS: Hematocrit 27.3 % (35.3-44.9); Mean Corpuscular HGB Conc 28.6 g/dL (31.6-35.5); Mean Corpuscular Hemoglobin 25.7 pg (28.0-33.3); Mean Corpuscular Volume 90.1 fL (83.0-100.0); Mean Platelet Volume 9.5 fL (9.4-12.4); Platelet Count 246 K/mcL (140-400); Red Blood Count 3.03 M/mcL (3.82-4.97); White Blood Count 7.6 K/mcL (4.3-11.1)
[2018-09-09 05:12] LABS: INR 2.2; Prothrombin Time 25.3 Seconds (9.4-12.1)
[2018-09-09 05:25] LABS: BUN/Creatinine Ratio 37 (6-26); Blood Urea Nitrogen 31 mg/dL (8-23); Calcium 8.4 mg/dL (8.6-10.3); Carbon Dioxide 36 mEq/L (23-29); Chloride 102 mEq/L (98-107); Glucose 151 mg/dL (70-105); Magnesium 2.1 mg/dL (1.6-2.6); Osmolality,Calculated 303 (280-300); Potassium 3.4 mEq/L (3.5-5.1); Sodium 142 mEq/L (136-145); eGFR For African Americans > 60 (> 60); eGFR For Non-African Americans > 60 (> 60)
[2018-09-09] MEDS: *HR* Enoxaparin 120 MG/0.8 ML SYRINGE SQ SCH (06:46)
--- NOTE | 2018-09-09 08:25 | Internal Med Progress Note ---
Hospitalist Progress Note - Encounter Date of Encounter: 09/09/18 - Exam Vitals: Temp Pulse Resp BP Pulse Ox 97.9 F 50 18 126/74 100 09/09/18 07:49 09/09/18 07:49 09/09/18 07:49 09/09/18 07:49 09/09/18 07:49 - Assessment and Plan (1) Atrial fibrillation Current Visit: Yes Status: Chronic (2) CHF (congestive heart failure) Current Visit: Yes Status: Chronic (3) HLD (hyperlipidemia) Current Visit: Yes Status: Chronic (4) HTN (hypertension) Current Visit: Yes Status: Chronic (5) Interstitial lung disease Current Visit: Yes Status: Chronic - Time Spent with Patient Total time spent is greater than 50% in coordination of care (as documented) at patient's floor/unit and/or counseling patient: Internal Medicine: Result - Labs CBC & Chem 7: 09/09/18 04:40 09/09/18 04:40 Labs: Short CBC 09/09/18 Range/Units 04:40 WBC 7.6 (4.3-11.1) K/mcL Hgb 7.8 L (11.5-15.4) g/dL Hct 27.3 L (35.3-44.9) % Plt Count 246 (140-400) K/mcL BMP 09/09/18 04:40 Sodium 142 Potassium 3.4 L Chloride 102 Carbon Dioxide 36 H BUN 31 H Creatinine 0.84 Glucose 151 H Calcium 8.4 L - ABG Interpretation ABG results: PT/INR, D-dimer PT 25.3 Seconds (9.4-12.1) H 09/09/18 04:40 Consult Discharge Plan - Plan Referrals: Aleksandar Strickland DO [Primary Care Provider] - (1) Atrial fibrillation Qualifiers: Atrial fibrillation type: persistent Qualified Code(s): I48.1 - Persistent atrial fibrillation (2) CHF (congestive heart failure) Qualifiers: Heart failure type: diastolic Heart failure chronicity: chronic Qualified Code(s): I50.32 - Chronic diastolic (congestive) heart failure (3) HLD (hyperlipidemia) Qualifiers: Hyperlipidemia type: mixed hyperlipidemia Qualified Code(s): E78.2 - Mixed hyperlipidemia (4) HTN (hypertension) Qualifiers: Hypertension type: essential hypertension Qualified Code(s): I10 - Essential (primary) hypertension
--- NOTE | 2018-09-09 08:27 | Discharge Summary ---
<Caden Faust M - Last Filed: 09/09/18 08:26> Orders not resulted at time of discharge: Pending orders 09/07/18 06:00 ECG 12 lead ECG [ECG] AM 0600 09/08/18 08:24 ECG 12 lead ECG [ECG] Stat Date of Encounter: 09/09/18 - Discharge Diagnosis (2) Atrial fibrillation Status: Chronic Qualifiers: Atrial fibrillation type: persistent Qualified Code(s): I48.1 - Persistent atrial fibrillation (3) CHF (congestive heart failure) Status: Chronic Qualifiers: Heart failure type: diastolic Heart failure chronicity: chronic Qualified Code(s): I50.32 - Chronic diastolic (congestive) heart failure (4) HLD (hyperlipidemia) Status: Chronic Qualifiers: Hyperlipidemia type: mixed hyperlipidemia Qualified Code(s): E78.2 - Mixed hyperlipidemia (5) HTN (hypertension) Status: Chronic Qualifiers: Hypertension type: essential hypertension Qualified Code(s): I10 - Essential (primary) hypertension (6) Interstitial lung disease Status: Chronic Hospital course: Ms. Merida is a 67 year old female - Time Spent with Patient Total time spent providing and/or coordinating discharge services: - Discharge Medications Prescriptions: No Action Aspirin 81 mg PO DAILY Omeprazole [PriLOSEC] 20 mg PO DAILY Fluticasone Furoate [Arnuity Ellipta] 1 puff IH DAILY Melatonin 5 mg PO HS PRN PRN Reason: Sleep Furosemide [Lasix] 40 mg PO DAILY PRN PRN Reason: Swelling Albuterol Sulfate [Ventolin Hfa] 2 puff PO Q6H PRN PRN Reason: Shortness Of Breath Metoprolol XL (24 HR) Succ [Toprol Xl] 25 mg PO DAILY tab.er.24h Warfarin [Coumadin] 2.5 mg PO SUMOWETHFR Calcium Carbonate [Calcium] 600 mg PO DAILY Citalopram Hydrobromide [Citalopram HBr] 10 mg PO DAILY Loratadine [Allergy Relief] 10 mg PO DAILY Metformin HCl [Fortamet] 1,000 mg PO QPM predniSONE [PredniSONE] 40 mg PO DAILY Sotalol HCl [Betapace] 120 mg PO BID Tizanidine HCl 4 mg PO DAILY PRN PRN Reason: Muscle Spasm Home Medications: Aspirin 81 mg PO DAILY 11/10/14 [History] Omeprazole [PriLOSEC] 20 mg PO DAILY 11/29/15 [History] Fluticasone Furoate [Arnuity Ellipta] 1 puff IH DAILY 05/28/17 [History] Melatonin 5 mg PO HS PRN 05/28/17 [History] Furosemide [Lasix] 40 mg PO DAILY PRN 07/26/17 [History] Albuterol Sulfate [Ventolin Hfa] 2 puff PO Q6H PRN 01/28/18 [History] Metoprolol XL (24 HR) Succ [Toprol Xl] 25 mg PO DAILY tab.er.24h 04/17/18 [Rx] Calcium Carbonate [Calcium] 600 mg PO DAILY 09/03/18 [History] Citalopram Hydrobromide [Citalopram HBr] 10 mg PO DAILY 09/03/18 [History] Loratadine [Allergy Relief] 10 mg PO DAILY 09/03/18 [History] Metformin HCl [Fortamet] 1,000 mg PO QPM 09/03/18 [History] Sotalol HCl [Betapace] 120 mg PO BID 09/03/18 [History] Tizanidine HCl 4 mg PO DAILY PRN 09/03/18 [History] Warfarin [Coumadin] 2.5 mg PO SUMOWETHFR 09/03/18 [History] predniSONE [PredniSONE] 40 mg PO DAILY 09/03/18 [History] Allergies/Adverse Reactions: Allergy/AdvReac Type Severity Reaction Status Date / Time adhesive tape Allergy Hives Verified 01/28/18 11:45 Date of admission: 09/04/18 18:34 Primary care physician: Aleksandar Strickland DO Consults: 09/03/18 19:13 Consult to Cardiology [CONS] Stat Comment: Consulting Provider: Cardiology Sayra Reason for Consult: atrial fibrillation Time Notified: 19:13 Call Completed: Yes 09/03/18 21:28 Consult to Acquisition Consultant [CONS] Routine Reason for SW Consult: 2L [employer]; Sayra 09/04/18 10:20 Consult to Electrophysiology (EP) [CONS] Routine Consulting Provider: Electrophysiology Sayra Reason for Consult: afib Call Completed: Yes 09/04/18 15:14 Consult to Invasive Line Access Team [CONS] Routine Reason for Consult: Limited vascular access Line Type: EPIV - Constitutional Vitals: Temp Pulse Resp BP Pulse Ox 97.9 F 50 18 126/74 100 07/08/19 07:49 09/09/18 07:49 09/09/18 07:49 09/09/18 07:49 09/09/18 07:49 General appearance: Present: cooperative, A&O X 3, pleasant, no acute distress - Patient Status Condition: Fair - Discharge Instructions Follow Up With: Aleksandar Strickland DO [Primary Care Provider] - Forms: ED Satisfaction Letter <Gregory Martin - Last Filed: 09/10/18 18:36> Orders not resulted at time of discharge: Pending orders 09/07/18 06:00 ECG 12 lead ECG [ECG] AM 0600 09/10/18 20:15 Hemoglobin and Hematocrit [HEME] Q6H 09/10/18 21:00 Hemoglobin and Hematocrit [HEME] Q6H 09/11/18 04:00 CBC [Complete Blood Count] [HEME] AM 0400 Comprehensive Metabolic Panel AM 0400 Magnesium AM 0400 PT/INR [Prothrombin Time INR] [COAG] AM 0400 09/12/18 04:00 PT/INR [Prothrombin Time INR] [COAG] AM 0400 09/13/18 04:00 PT/INR [Prothrombin Time INR] [COAG] AM 0400 09/14/18 04:00 PT/INR [Prothrombin Time INR] [COAG] AM 0400 Date of Encounter: 09/10/18 - Discharge Diagnosis (1) Anemia Status: Acute Qualifiers: Anemia type: other cause Other causes of anemia: acute posthemorrhagic (2) Atrial fibrillation Status: Chronic Qualifiers: Atrial fibrillation type: persistent Qualified Code(s): I48.1 - Persistent atrial fibrillation (3) CHF (congestive heart failure) Status: Chronic Qualifiers: Heart failure type: diastolic Heart failure chronicity: chronic Qualified Code(s): I50.32 - Chronic diastolic (congestive) heart failure (4) HLD (hyperlipidemia) Status: Chronic Qualifiers: Hyperlipidemia type: mixed hyperlipidemia Qualified Code(s): E78.2 - Mixed hyperlipidemia (5) Chronic respiratory failure Status: Chronic Qualifiers: Respiratory failure complication: hypoxia Qualified Code(s): J96.11 - Chronic respiratory failure with hypoxia (6) Type II diabetes mellitus Status: Chronic Qualifiers: Diabetes 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 Merida is a 67 year old female - Time Spent with Patient Total time spent providing and/or coordinating discharge services: Date of admission: 09/04/18 18:34 Primary care physician: Aleksandar Strickland DO Consults: 09/03/18 19:13 Consult to Cardiology [CONS] Stat Comment: Consulting Provider: Cardiology [place] Reason for Consult: atrial fibrillation Time Notified: 19:13 Call Completed: Yes 09/03/18 21:28 Consult to Acquisition Consultant [CONS] Routine Reason for SW Consult: 2L [employer]; [facility] HH 09/04/18 10:20 Consult to Electrophysiology (EP) [CONS] Routine Consulting Provider: Electrophysiology Sayra Reason for Consult: afib Call Completed: Yes 09/04/18 15:14 Consult to Invasive Line Access Team [CONS] Routine Reason for Consult: Limited vascular access Line Type: EPIV 09/09/18 09:14 Consult to Surgery [CONS] Routine Consulting Provider: Surgery [facility] Reason for Consult: Evacuation of Hematoma Call Completed: Yes 09/09/18 16:03 Consult to Nurse Navigator [CONS] Routine Comment: CHF - Constitutional Vitals: Temp Pulse Resp BP Pulse Ox 97.5 F L 52 18 121/77 100 09/10/18 16:27 09/10/18 16:27 09/10/18 16:27 09/10/18 16:27 09/10/18 16:27 - Attending Attestation Not discharged by me.
--- NOTE | 2018-09-09 08:53 | Event Note ---
Date of Encounter: 09/09/18 Time of Encounter: 08:50 - Cardiology Event Note Discharge pending, will s/o, f/u arranged.
[2018-09-09] MEDS ORDERED: *HR* HYDROcodone/Acet 5/325 mg TABLET PO PRN (09:15)
[2018-09-09] MEDS: Aspirin 81 MG TAB.CHEW PO SCH (09:26)
[2018-09-09] MEDS: predniSONE 20 MG TABLET PO SCH (09:26)
[2018-09-09] MEDS: Metoprolol XL (24 HR) Succ 25 MG TAB.ER.24H PO SCH (09:26)
[2018-09-09] MEDS: Insulin LISPRO 300 UNITS/3 ML VIAL SQ SCH ×4 (09:27→20:52)
[2018-09-09] MEDS ORDERED: ceFAZolin 2,000 MG in Water for inj. (sterile) 20 ML IVP ONE (10:41)
--- NOTE | 2018-09-09 10:43 | AcuteCare Surgery Consult Note ---
Date of Encounter: 09/09/18 Time of Encounter: 10:30 Assessment and Plan (1) Hematoma Current Visit: Yes Status: Acute LLE; spontaneous after anticoagulation. H&H stable. Recommend evacuation of this superfical but, large hematoma on medial aspect of left lower leg. Procedure, risks and benefits of evacuation are d/w pt and her sister. Possible complci ations are additional bleeding or infection. Risk for bleeding is significant d/t elevated INR. She understands and wishes to proceed with surgery. NPO. Consent obtained and surgery scheduled. (2) Atrial fibrillation Current Visit: Yes Status: Chronic Qualifiers: Atrial fibrillation type: persistent Qualified Code(s): I48.1 - Persistent atrial fibrillation (3) CHF (congestive heart failure) Current Visit: Yes Status: Chronic Qualifiers: Heart failure type: diastolic Heart failure chronicity: chronic Qualified Code(s): I50.32 - Chronic diastolic (congestive) heart failure (4) HTN (hypertension) Current Visit: Yes Status: Chronic Qualifiers: Hypertension type: essential hypertension Qualified Code(s): I10 - Essential (primary) hypertension (5) Type II diabetes mellitus Current Visit: Yes Status: Chronic Qualifiers: Diabetes mellitus skilled nursing insulin use: without intermediate designer use Diabetes mellitus complication status: without complication Qualified Code(s): E11.9 - Type 2 diabetes mellitus without complications History of Present Illness Consult date: 09/09/18 Reason for consult: other (hematoma LLE) Requesting physician: Caden Faust History of present illness: This 67 y/o female was admitted to [facility] and treated for a fib. Pt developed a LLE hematoma while being anticoagulated. She complains of severe pain locally over hematoma. She denies any neurovascular compromise. She can move her foot wi thout problem except pain over her medical calf associated with the hematoma. Past Med Surg Social Fam HX - Past Medical History Medical history: asthma, atrial fibrillation, CHF, diabetes, hyperlipidemia, hypertension, TIA, other Additional medical history: Neuropathy Psychiatric history: no psych history - Past Surgical History Surgical History: breast surgery, cancer surgery, hysterectomy Additional surgical history: breast reconstrution - Social History Smoking Status: Never smoker Smokeless Tobacco Status: No Alcohol use: none Drug use: none - Family History Father Family Member Ethnicity: Non- Living Status: Hx Family Cardiac Disorders: Yes (hypertension) Hx Family Respiratory Disorders: No Hx Family Cancer: No Hx Family GI Disorders: No Hx Family Endocrine Disorder: Yes (diabetes) Hx Family Neuromuscular Disorders: No Hx Family Neurologic Disorders: No Hx Family HEENT Disorders: No Hx Family Autoimmune Disorders: No Mother Adopted: No Family Member Ethnicity: Non- Living Status: Still Living Hx Family Cardiac Disorders: Yes (Afib) Hx Family Respiratory Disorders: No Hx Family Cancer: Yes (Colon) Hx Family GI Disorders: Yes (Cancer) Hx Family Endocrine Disorder: Yes Hx Family Neuromuscular Disorders: Yes (Stroke 2016) Hx Family Neurologic Disorders: No Hx Family HEENT Disorders: No Hx Family Autoimmune Disorders: No Medications and Allergies Aspirin 81 mg PO DAILY 11/10/14 [History] Omeprazole [PriLOSEC] 20 mg PO DAILY 11/29/15 [History] Fluticasone Furoate [Arnuity Ellipta] 1 puff IH DAILY 05/28/17 [History] Melatonin 5 mg PO HS PRN 05/28/17 [History] Furosemide [Lasix] 40 mg PO DAILY PRN 07/26/17 [History] Albuterol Sulfate [Ventolin Hfa] 2 puff PO Q6H PRN 01/28/18 [History] Metoprolol XL (24 HR) Succ [Toprol Xl] 25 mg PO DAILY tab.er.24h 04/17/18 [Rx] Calcium Carbonate [Calcium] 600 mg PO DAILY 09/03/18 [History] Citalopram Hydrobromide [Citalopram HBr] 10 mg PO DAILY 09/03/18 [History] Loratadine [Allergy Relief] 10 mg PO DAILY 09/03/18 [History] Metformin HCl [Fortamet] 1,000 mg PO QPM 09/03/18 [History] Sotalol HCl [Betapace] 120 mg PO BID 09/03/18 [History] Tizanidine HCl 4 mg PO DAILY PRN 09/03/18 [History] Warfarin [Coumadin] 2.5 mg PO SUMOWETHFR 09/03/18 [History] predniSONE [PredniSONE] 40 mg PO DAILY 09/03/18 [History] Allergy/AdvReac Type Severity Reaction Status Date / Time adhesive tape Allergy Hives Verified 01/28/18 11:45 Review of Systems All systems PM: The remainder of the systems were reviewed and are negative - Constitutional fatigue, no anorexia, no chills, no fever(s), no night sweats, no weight gain, no weight loss - EENT Nose, mouth and throat: no dizziness, no dry mouth, no nasal congestion, no nasal discharge, no sinus pain, no sinus pressure, no sore throat - Cardiovascular edema, no chest pain, no diaphoresis, no dyspnea - Respiratory no cough, no dyspnea, no wheezing - Gastrointestinal no abdominal pain, no constipation, no diarrhea, no nausea, no vomiting - Genitourinary Genitourinary: no difficulty voiding, no dysuria, no urinary frequency - Musculoskeletal back pain, limited range of motion, no joint swelling, no neck pain - Integumentary other (large hematoma LLE), no dry skin, no pruritus, no rash, no wounds, no jaundice - Psychiatric no anxiety, no depression - Hematologic/Lymphatic easy bleeding, easy bruising General Surgery Exam Initial Vital Signs Temp Pulse Resp BP Pulse Ox 98.7 F 153 20 163/99 96 09/03/18 17:48 09/03/18 17:48 09/03/18 17:48 09/03/18 17:48 09/03/18 17:48 - General physical appearance well developed, well nourished, no distress. negative: jaundice - Eyes PERRL, normal ocular movement. negative: icteric - ENT no congestion, dry mucosa. negative: nasal discharge - Neck no masses, trachea midline, no lymphadectomy, no venous distension - Respiratory normal respiratory effort, clear to auscultation - Cardiovascular Cardiovascular exam: Present: irregular rhythm - Abdomen Abdomen general surgery: Present: bowel sounds present, soft, non tender - Genitourinary Present: normal external genitalia - Integumentary Integumentary general surgery: Present: warm and dry, other (superficial hematoma over medial aspect of left calf) - Neurologic Present: CN 2-12 grossly intact, normal coordination. Absent: confused - Musculoskeletal Present: normal posture - Psychiatric Psychiatric general surgery: Present: A&Ox3, appropriate Exam Initial Vital Signs Temp Pulse Resp BP Pulse Ox 98.7 F 153 20 163/99 96 09/03/18 17:48 09/03/18 17:48 09/03/18 17:48 09/03/18 17:48 09/03/18 17:48 Results - Labs 09/09/18 04:40 09/09/18 04:40 Abnormal lab results RBC 3.03 M/mcL (3.82-4.97) L 09/09/18 04:40 Hgb 7.8 g/dL (11.5-15.4) L 09/09/18 04:40 Hct 27.3 % (35.3-44.9) L 09/09/18 04:40 MCH 25.7 pg (28.0-33.3) L 09/09/18 04:40 MCHC 28.6 g/dL (31.6-35.5) L 09/09/18 04:40 RDW 15.6 % (11.5-14.5) H 09/09/18 04:40 MPV 9.1 fL (9.4-12.4) L 09/08/18 04:00 Nucleated RBCs/100 WBC 0.2 /100 WBC (0) H 09/03/18 18:11 1+ (Not Present) A 09/04/18 05:31 PT 25.3 Seconds (9.4-12.1) H 09/09/18 04:40 Potassium 3.4 mEq/L (3.5-5.1) L 09/09/18 04:40 Carbon Dioxide 36 mEq/L (23-29) H 09/09/18 04:40 BUN 31 mg/dL (8-23) H 09/09/18 04:40 0.58 mg/dL (0.60-1.20) L 09/05/18 05:30 37 (6-26) H 09/09/18 04:40 Glucose 151 mg/dL (70-105) H 09/09/18 04:40 POC Glucose 141 mg/dL (70-99) H 09/08/18 08:15 303 (280-300) H 09/09/18 04:40 Calcium 8.4 mg/dL (8.6-10.3) L 09/09/18 04:40 Triglycerides 175 mg/dL (< 150) H 09/04/18 05:31 Cholesterol 222 mg/dL (< 200) H 09/04/18 05:31 LDL Cholesterol, Calc 135 mg/dL (0-99) H 09/04/18 05:31 VLDL Cholesterol, Calc 35 mg/dL (< 31) H 09/04/18 05:31 Diabetes panel 09/09/18 Range/Units 04:40 Sodium 142 (136-145) mEq/L Potassium 3.4 L (3.5-5.1) mEq/L Chloride 102 (98-107) mEq/L Carbon Dioxide 36 H (23-29) mEq/L BUN 31 H (8-23) mg/dL Creatinine 0.84 (0.60-1.20) mg/dL Glucose 151 H (70-105) mg/dL Calcium 8.4 L (8.6-10.3) mg/dL Calcium panel 09/09/18 Range/Units 04:40 Calcium 8.4 L (8.6-10.3) mg/dL Pituitary panel 09/09/18 Range/Units 04:40 Sodium 142 (136-145) mEq/L Potassium 3.4 L (3.5-5.1) mEq/L Chloride 102 (98-107) mEq/L Carbon Dioxide 36 H (23-29) mEq/L BUN 31 H (8-23) mg/dL Creatinine 0.84 (0.60-1.20) mg/dL Glucose 151 H (70-105) mg/dL Calcium 8.4 L (8.6-10.3) mg/dL Adrenal panel 09/09/18 Range/Units 04:40 Sodium 142 (136-145) mEq/L Potassium 3.4 L (3.5-5.1) mEq/L Chloride 102 (98-107) mEq/L Carbon Dioxide 36 H (23-29) mEq/L BUN 31 H (8-23) mg/dL Creatinine 0.84 (0.60-1.20) mg/dL Glucose 151 H (70-105) mg/dL Calcium 8.4 L (8.6-10.3) mg/dL All other labs normal. Consult Discharge Plan - Plan Referrals: Aleksandar Strickland DO [Primary Care Provider] -
[2018-09-09] MEDS ORDERED: *HR* Midazolam HCl 2 MG/2 ML VIAL ONE (12:15)
[2018-09-09] MEDS ORDERED: *HR* Propofol 200 MG/20 ML VIAL IVP ONE (12:15)
[2018-09-09] MEDS ORDERED: *HR* FentaNYL (PF) 100 MCG/2 ML VIAL ONE (12:15)
[2018-09-09] MEDS ORDERED: Lidocaine -MPF 2% 2 ML VIAL ONE ×2 (12:16→12:56)
[2018-09-09] MEDS ORDERED: Dexamethasone 4 MG/ML VIAL ONE (12:16)
[2018-09-09] MEDS ORDERED: Ondansetron 4 MG/2 ML VIAL ONE (12:16)
--- NOTE | 2018-09-09 12:24 | Anesthesia Evaluation PreOp ---
Date of Encounter: 09/09/18 Time of Encounter: 12:21 - Past History Cardiac History: CHF, HTN, Hyperlipidemia, Arrhythmia (A fib/A flutter) Pulmonary History: Other (Interstitial lung disease, home oxygen) [employer]EL[employer] History: TIA Other Medical History: Diabetes Type II, GERD (lt mastectomy), Other (anemia, Obesity) Anesthesia History: No Prior Anesthetic Complications, Past Anesthesia (lt mastectomy, lung biopsy) : No Test: Negative Alcohol Use: none Drug use: none Medications and Allergies Aspirin 81 mg PO DAILY 11/10/14 [History] Omeprazole [PriLOSEC] 20 mg PO DAILY 11/29/15 [History] Fluticasone Furoate [Arnuity Ellipta] 1 puff IH DAILY 05/28/17 [History] Melatonin 5 mg PO HS PRN 05/28/17 [History] Furosemide [Lasix] 40 mg PO DAILY PRN 07/26/17 [History] Albuterol Sulfate [Ventolin Hfa] 2 puff PO Q6H PRN 01/28/18 [History] Metoprolol XL (24 HR) Succ [Toprol Xl] 25 mg PO DAILY tab.er.24h 04/17/18 [Rx] Calcium Carbonate [Calcium] 600 mg PO DAILY 09/03/18 [History] Citalopram Hydrobromide [Citalopram HBr] 10 mg PO DAILY 09/03/18 [History] Loratadine [Allergy Relief] 10 mg PO DAILY 09/03/18 [History] Metformin HCl [Fortamet] 1,000 mg PO QPM 09/03/18 [History] Sotalol HCl [Betapace] 120 mg PO BID 09/03/18 [History] Tizanidine HCl 4 mg PO DAILY PRN 09/03/18 [History] Warfarin [Coumadin] 2.5 mg PO SUMOWETHFR 09/03/18 [History] predniSONE [PredniSONE] 40 mg PO DAILY 09/03/18 [History] Allergy/AdvReac Type Severity Reaction Status Date / Time adhesive tape Allergy Hives Verified 01/28/18 11:45 - Meds/Allergy Pre-op Review Medications Reviewed: Yes Allergies Reviewed: Yes Beta Blockers on Current Med List: Yes (Sotalol, metoprolol) If Beta Blockers taken, Date/Time (Last Dose taken): 09/09/18 11:00 Anesthesia Results - Labs 09/09/18 04:40 09/09/18 04:40 - Imaging EKG: report reviewed (Afib/Aflutter RVR) Anesthesia Exam O2 Sat Weight 112.7 kg O2 Sat by Pulse Oximetry 99 O2 Sat by Pulse Oximetry 100 O2 Sat by Pulse Oximetry 100 O2 Sat by Pulse Oximetry 98 O2 Sat by Pulse Oximetry 99 O2 Sat by Pulse Oximetry 99 O2 Sat by Pulse Oximetry 99 O2 Sat by Pulse Oximetry 98 O2 Sat by Pulse Oximetry 95 Vital Signs Temp Pulse Resp BP Pulse Ox 98.7 F 153 20 163/99 96 09/03/18 17:48 09/03/18 17:48 09/03/18 17:48 09/03/18 17:48 09/03/18 17:48 Blood glucose: 151 Height: 5'5 Weight: 249 lb NPO (# of Hours): 01:00 chips Pain Scale: 3 Pain Scale Used: Numeric (1 - 10) - HEENT Pupil (Motor): Pupils equal Mallampati: III Teeth: Normal Oral Opening: Less than or equal to 3 - [employer]ELOPER [employer]ELOPER Motor: Normal RUE, Normal LUE, Normal RLE, Normal LLE, Normal Face [employer]EL[employer] Sensory: Normal: RUE, LUE, RLE, LLE, Face - Cardiac Rhythm: Irregular Murmur: None - Pulmonary Breath Sounds: right Rhonchi Respiratory Effort: Symmetrical Anesthesia Assess/Plan ASA Score: 3, E Level of consciousness: Cooperative Anesthetic Plan: General Monitoring Plan: A-Line Recovery Plan: PACU
[2018-09-09] MEDS ORDERED: *HR* Succinylcholine 200 MG/10 ML VIAL IVP ONE (12:37)
[2018-09-09] MEDS ORDERED: *HR* Rocuronium Bromide 50 MG/5 ML VIAL ONE (12:38)
[2018-09-09] MEDS ORDERED: *HR* Etomidate 40 MG/20 ML VIAL IVP ONE (12:38)
[2018-09-09] MEDS ORDERED: Heparin 1,000 UNITS/500 mL 500 ML ONE (12:44)
[2018-09-09] MEDS ORDERED: *HR* FentaNYL (PF) 100 MCG/2 ML VIAL IVP PRN (12:46)
[2018-09-09] MEDS ORDERED: Hydrocortisone Sodium Succ 100 MG/2 ML VIAL ONE (12:51)
[2018-09-09] MEDS ORDERED: MethylPREDNISolone 40 MG/ML VIAL ONE (12:51)
[2018-09-09] MEDS ORDERED: EPHEDrine 50 MG/ML VIAL ONE (13:10)
[2018-09-09] MEDS ORDERED: *HR* PHENYLEPHRINE 1,000 MCG/10 ML SYRINGE IVP ONE (13:12)
--- NOTE | 2018-09-09 13:31 | Internal Med Progress Note ---
Hospitalist Progress Note - Encounter Date of Encounter: 09/09/18 Time of Encounter: 10:00 - Subjective Interval History: Patient seen and examined at bedside this morning. Patient had significantly increased pain overnight due to left lower leg hematoma which has significantly increased in size. General surgery consulted for evacuation of hematoma which was performed in the afternoon successfully. Gen. surgery states that if patient medically stable can discharge with home health for dressing changes. Patient continues to be in normal sinus rhythm with PACs. Cardiology has signed off, follow-up outpatient arranged. Patient to be placed in rehabilitation facility tomorrow. - Exam Vitals: Temp Pulse Resp BP Pulse Ox 97.9 F 53 16 95/57 99 09/09/18 11:40 09/09/18 11:40 09/09/18 11:40 09/09/18 11:40 09/09/18 11:40 Exam: Gen.: Vitals noted. Moderate pain from LLE nodule, appears to be hematoma. HEENT: PERRL/EOMI, oropharynx clear, Normocephalic, atraumatic, MMM Cardiac: Regular rate, normal sinus rhythm with second-degree AV block, no murmur, +S1/S2, 3+ BLE edema Pulmonary: Absent breath sounds in bases particularly on right, equal chest expansion, unlabored breathing Abdomen: soft, nontender, BS noted, no guarding Skin: Hematoma significantly increased in size, anterior tibial location Neuro: A&Ox3, moves all extremities, no focal deficits, sensation intact Psych: Appropriate mood and behavior - Assessment and Plan (1) Atrial fibrillation Current Visit: Yes Status: Chronic Assessment and Plan: -presented with Afib RVR, HR in the 150's -Multiple cardioversions in the past, most recent in April 2018 -Patient remains subtherapeutic INR however is trending up, 1.9 this morning -Patient appears to have self converted back to normal sinus rhythm -EKG shows occasional PAC -Sanipractic Physician signed off Plan: -Continue sotalol therapy at 160 mg every 12 hours -INR 2.2 today, Lovenox stopped -Patient stable for discharge tomorrow (2) CHF (congestive heart failure) Current Visit: Yes Status: Chronic Assessment and Plan: -Patient chronically fluid overloaded secondary to diastolic heart failure in addition to chronic steroid use and high salt diet -Last Echo performed 12/30/17: LVEF 60-65%, normal wall motion normal RV structure -Patient currently reports she is no more swollen than baseline, though appears fluid overloaded -weight is actually down according to most recent outpatient OV -BLE with +3 edema and seepage, Kerlix with MOSHE Bandages applied -Patient's bicarbonate and serum osmolality did increase from yesterday Plan: -Continue to hold Lasix at this time -Diamox for fluid overload in the setting of elevated bicarbonate -Monitor fluid status -Repeat echo outpatient (3) HLD (hyperlipidemia) Current Visit: Yes Status: Chronic Assessment and Plan: Continue statin (4) HTN (hypertension) Current Visit: Yes Status: Chronic Assessment and Plan: Blood pressure stable during admission Continue to monitor (5) Interstitial lung disease Current Visit: Yes Status: Chronic Assessment and Plan: Patient with a known history of interstitial lung disease, followed by [facility] pulmonology Currently on steroid regimen and is status post lobectomy of right lower lobe Chronically on 2 L at home, restarted during admission Plan: -We will continue to supplement oxygen and monitor pulse ox -Patient without respiratory complaints at this time -Continue to monitor - Time Spent with Patient Total time spent is greater than 50% in coordination of care (as documented) at patient's floor/unit and/or counseling patient: Internal Medicine: Result - Labs CBC & Chem 7: 09/09/18 04:40 09/09/18 04:40 Labs: Short CBC 09/09/18 Range/Units 04:40 WBC 7.6 (4.3-11.1) K/mcL Hgb 7.8 L (11.5-15.4) g/dL Hct 27.3 L (35.3-44.9) % Plt Count 246 (140-400) K/mcL BMP 09/09/18 04:40 Sodium 142 Potassium 3.4 L Chloride 102 Carbon Dioxide 36 H BUN 31 H Creatinine 0.84 Glucose 151 H Calcium 8.4 L - ABG Interpretation ABG results: PT/INR, D-dimer PT 25.3 Seconds (9.4-12.1) H 09/09/18 04:40 Consult Discharge Plan - Plan Referrals: Aleksandar Strickland DO [Primary Care Provider] - (1) Atrial fibrillation Qualifiers: Atrial fibrillation type: persistent Qualified Code(s): I48.1 - Persistent atrial fibrillation (2) CHF (congestive heart failure) Qualifiers: Heart failure type: diastolic Heart failure chronicity: chronic Qualified Code(s): I50.32 - Chronic diastolic (congestive) heart failure (3) HLD (hyperlipidemia) Qualifiers: Hyperlipidemia type: mixed hyperlipidemia Qualified Code(s): E78.2 - Mixed hyperlipidemia (4) HTN (hypertension) Qualifiers: Hypertension type: essential hypertension Qualified Code(s): I10 - Essential (primary) hypertension
--- NOTE | 2018-09-09 14:11 | Operative Note ---
Date of procedure: 09/09/18 Pre-op diagnosis: LLE hematoma Post-op diagnosis: same Procedure: Evacuation of LLE hematoma Complications: none Anesthesia: SOCOA Surgeon: Justyn Spence Was there an personal injury legal assistant present: No Estimated blood loss (cc): 15 Specimen: none Condition: stable Disposition: PACU Procedure in Detail: This 67 y/o female pt was taken to OR and placed in supine position. The left lower leg was prepped and draped in the usual sterile fashion. A metzenbaum scissors was used to unroof the skin over the apex of the hematoma on the LLE. Immediate drainage of liquified old bloody fluid was achieved. The subcutaneous tissue was explored for active bleeding and none was found. The wound was then irrigated gently. Hemostasis was satisfactory. The wound was dressed with surgicel, xeroform gauze, Kerlix roll and MOSHE bandage. Pt tolerated the procedure well and was taken to the PACU in good condition.
--- NOTE | 2018-09-09 14:15 | Acute Care Surgery Event Note ---
Date of Encounter: 09/09/18 Time of Encounter: 13:30 Home health to change dressing 3 days/week. Dressing change instructions as follows. #1 remove MOSHE and Kerlix roll #2 remove underlying 4x4 fluff gauze and xeroform. #[address] #4 replace xeroform, Kerlix roll and MOSHE wrap #5 keep wound dry. Recommend no UNNA boot on left leg Recommend f/u in wound care clinic
[2018-09-09] MEDS ORDERED: Acetaminophen 325 MG TABLET PO PRN (14:19)
[2018-09-09] MEDS ORDERED: *HR* Dextrose 50 % in Water (Syg) 50 ML SYRINGE IVP PRN (14:19)
[2018-09-09] MEDS ORDERED: Ondansetron 4 MG/2 ML VIAL IVP PRN (14:19)
[2018-09-09] MEDS ORDERED: Dextrose Gel 15 GM/37.5 ML TUBE PO PRN ×2 (14:19)
[2018-09-09] MEDS ORDERED: Warfarin perPT PO PRN (14:19)
[2018-09-09] MEDS ORDERED: D5% in Water 1,000 ML IVC PRN (14:19)
[2018-09-09] MEDS ORDERED: *HR* Metoprolol 5 MG/5 ML VIAL IVP PRN (14:19)
[2018-09-09] MEDS ORDERED: tiZANidine 4 MG TABLET PO PRN (14:19)
[2018-09-09] MEDS ORDERED: Naloxone 0.4 MG/ML INJ IVP PRN (14:19)
--- NOTE | 2018-09-09 14:23 | Anesthesia Evaluation Post Op ---
Date of Encounter: 09/09/18 Time of Encounter: 14:22 - Vital Signs Vital Signs: Vital Signs/O2 Sat/Glucose, Most Current Temp Pulse Resp BP Pulse Ox 09/09/18 14:17 56 16 114/56 100 09/09/18 14:06 98.2 F 61 16 117/55 99 09/09/18 13:56 98.3 F 61 16 112/52 100 09/09/18 13:46 98.0 F 62 18 109/63 99 09/09/18 11:40 97.9 F 53 16 95/57 99 09/09/18 10:57 62 100 - Lungs Lungs: Clear Ascult./Percussion - Airway Airway: Non-obstructed - Cardiovascular Irregular Rate - Mental Status Mental Status: Alert & Oriented, Answers Appropriately - Pain Pain Scale: 4 Pain Scale used: Numeric (1 - 10) - Nausea Vomiting Nausea Vomiting: Not Present - Hydration Hydration: Ice chips - Discharge PostOp Status: Transfer Patient to floor
[2018-09-09] MEDS ORDERED: *HR* Warfarin 2 MG TABLET PO ONE ×2 (18:00)
--- NOTE | 2018-09-09 22:33 | Electrocardiograph Report ---
[place] [id number] Test Date: 2018-09-08 Pat Name: Erica Merida Department: 112 Room: 2A63 Gender: F Student Advisor: : [id number] Requested By: Aidee Diaz Order Number: [id number] Reading MD: Cameron Neri Measurements Intervals [place] Rate: 64 P: MA: 0 QRS: 11 QRSD: 97 T: 32 QT: 430 QTc: 439 Interpretive Statements SINUS RHYTHM WITH 2ND DEGREE AV BLOCK, MOBITZ TYPE II LOW QRS VOLTAGE IN PRECORDIAL LEADS MINIMAL VOLTAGE CRITERIA FOR LVH, CONSIDER NORMAL VARIANT NONSPECIFIC T-WAVE ABNORMALITY Electronically Signed On 09-09-2018 22:32:02 EDT by Cameron Neri
[2018-09-10] MEDS: Melatonin 3 MG TABLET PO PRN ×2 (00:49→20:45)
[2018-09-10] MEDS ORDERED: *HR* Phytonadione 10 MG/ML AMPUL SQ ONE (04:39)
[2018-09-10 05:06] LABS: Hematocrit 18.8 % (35.3-44.9); Mean Corpuscular HGB Conc 28.7 g/dL (31.6-35.5); Mean Corpuscular Hemoglobin 25.6 pg (28.0-33.3); Mean Corpuscular Volume 89.1 fL (83.0-100.0); Mean Platelet Volume 10.1 fL (9.4-12.4); Platelet Count 235 K/mcL (140-400); Red Blood Count 2.11 M/mcL (3.82-4.97); Red Cell Distribution Width 15.6 % (11.5-14.5); White Blood Count 10.3 K/mcL (4.3-11.1)
[2018-09-10 05:13] LABS: Hemoglobin 5.4 g/dL (11.5-15.4)
[2018-09-10 05:14] LABS: INR 2.7; Prothrombin Time 30.4 Seconds (9.4-12.1)
[2018-09-10 05:34] LABS: BUN/Creatinine Ratio 40 (6-26); Blood Urea Nitrogen 36 mg/dL (8-23); Calcium 8.1 mg/dL (8.6-10.3); Carbon Dioxide 33 mEq/L (23-29); Chloride 104 mEq/L (98-107); Glucose 180 mg/dL (70-105); Magnesium 2.2 mg/dL (1.6-2.6); Osmolality,Calculated 301 (280-300); Potassium 4.8 mEq/L (3.5-5.1); Sodium 139 mEq/L (136-145); eGFR For African Americans > 60 (> 60); eGFR For Non-African Americans > 60 (> 60)
[2018-09-10] MEDS ORDERED: 0.9 % Sodium Chloride 250 ML ONE ×3 (06:01→13:32)
--- NOTE | 2018-09-10 06:34 | Event Note ---
Date of Encounter: 09/10/18 Time of Encounter: 05:14 Alerted by patient's nurse that patient's Hgb was now 5.4 in morning labs. Patient typed and screened on 09/09. 3 units PRBCs ordered stat for transfusion. Nurse called to begin transfusion FARZANA.
--- NOTE | 2018-09-10 07:55 | Internal Med Progress Note ---
<Gregory Martin - Last Filed: 09/10/18 14:43> Hospitalist Progress Note - Encounter Date of Encounter: 09/10/18 - Exam Vitals: Temp Pulse Resp BP Pulse Ox 97.6 F 55 16 114/68 100 09/10/18 13:55 09/10/18 13:55 09/10/18 13:55 09/10/18 13:55 09/10/18 13:55 - Assessment and Plan (1) Anemia Current Visit: Yes Status: Acute (2) Atrial fibrillation Current Visit: Yes Status: Chronic (3) CHF (congestive heart failure) Current Visit: Yes Status: Chronic (4) HLD (hyperlipidemia) Current Visit: Yes Status: Chronic (5) Chronic respiratory failure Current Visit: Yes Status: Chronic (6) Type II diabetes mellitus Current Visit: Yes Status: Chronic (7) Hematoma Current Visit: Yes Status: Acute - Time Spent with Patient Total time spent is greater than 50% in coordination of care (as documented) at patient's floor/unit and/or counseling patient: Internal Medicine: Result - Labs CBC & Chem 7: 09/10/18 04:30 09/10/18 04:30 Labs: Short CBC 09/10/18 Range/Units 04:30 WBC 10.3 (4.3-11.1) K/mcL Hgb 5.4 L* D (11.5-15.4) g/dL Hct 18.8 L (35.3-44.9) % Plt Count 235 (140-400) K/mcL BMP 09/10/18 04:30 Sodium 139 Potassium 4.8 D Chloride 104 Carbon Dioxide 33 H BUN 36 H Creatinine 0.91 Glucose 180 H Calcium 8.1 L - ABG Interpretation ABG results: PT/INR, D-dimer PT 30.4 Seconds (9.4-12.1) H 09/10/18 04:30 Consult Discharge Plan - Plan Referrals: Aleksandar Strickland DO [Primary Care Provider] - - Attending Attestation I examined this patient and my medical decision-making was reviewed with the Resident Physician on 09/10/18. I agree with the documented findings, disposition and treatment plan as described except to the extent set forth below. Ms Merida is currently admitted for rapid a fib and leg hematoma. She remains moderate to high risk due to potential for worsening clinical status. Ms Merida has developed significant anemia overnight. Receiving blood. Pain is OK at this time. Coumadin on hold and Vit K given. Discussed with cardiology that if she again is in rapid a fib - Sotalol will need to be stopped. Will need to be bridged with Lovenox when able to restart anticoagulation. Heart sangita now. Lungs diminished and abd soft. Dressing intact on leg. <Caden Faust - Last Filed: 09/10/18 18:10> Hospitalist Progress Note - Encounter Date of Encounter: 09/10/18 Time of Encounter: 09:00 - Subjective Interval History: Patient seen and examined at bedside this morning with a friend in the room. Patient's hematoma was evacuated yesterday in the OR and over night she began to bleed significantly from the surgical site. The patient's hemoglobin had enrique pped significantly, 5.4 down from 7.8 yesterday. The general surgeon who performed the procedure replaced dressings, reversed INR with vitamin K, held Coumadin for the time being. Patient was given 3 units packed red blood cells, serial H&H's were ordered to trend her hemoglobin. The patient remains in normal sinus rhythm. - Exam Vitals: Temp Pulse Resp BP Pulse Ox 97.6 F 55 16 104/53 100 09/10/18 07:51 09/10/18 07:51 09/10/18 07:51 09/10/18 07:51 09/10/18 07:51 Exam: Gen.: Vitals noted. Moderate pain from LLE nodule, appears to be hematoma. HEENT: PERRL/EOMI, oropharynx clear, Normocephalic, atraumatic, MMM Cardiac: Regular rate, normal sinus rhythm with second-degree AV block, no murmur, +S1/S2, 3+ BLE edema Pulmonary: Absent breath sounds in bases particularly on right, equal chest expansion, unlabored breathing Abdomen: soft, nontender, BS noted, no guarding Skin: Ecchymosis of lower extremities noted. Dressing subsequent to hematoma evacuation is in place, some blood drainage noted Neuro: A&Ox3, moves all extremities, no focal deficits, sensation intact Psych: Appropriate mood and behavior - Assessment and Plan (1) Anemia Current Visit: Yes Status: Acute Assessment and Plan: Secondary to acute blood loss Patient had developed a significant hematoma in the previous days Was taken to the OR for evacuation, was found to be superficial in nature Subsequently developed significant bleeding from the incision site Patient does have chronic anemia, baseline hemoglobin of roughly 8.0 On admission her hemoglobin was 9.6, dropped to 7.8 yesterday, 5.4 this morning The patient was administered 3 units packed red blood cells Her INR was 2.7 this morning, vitamin K was administered Plan: -Trend hemoglobin, H and H every 6 hours -Monitor surgical dressings for further signs of bleeding -Hold Coumadin (2) Atrial fibrillation Current Visit: Yes Status: Chronic Assessment and Plan: -presented with Afib RVR, HR in the 150's -Multiple cardioversions in the past, most recent in April 2018 -Patient remains subtherapeutic INR however is trending up, 1.9 this morning -Patient appears to have self converted back to normal sinus rhythm -EKG shows occasional PAC -Beadworker signed off Plan: -Continue sotalol therapy at 160 mg every 12 hours -INR 2.7 today, vitamin K given and Coumadin held secondary to post-op bleeding -Patient remains in normal sinus rhythm, continue to monitor -If converts back to Afib RVR will have to stop Sotolol and resume Cardizem drip (3) CHF (congestive heart failure) Current Visit: Yes Status: Chronic Assessment and Plan: -Patient chronically fluid overloaded secondary to diastolic heart failure in addition to chronic steroid use and high salt diet -Last Echo performed 12/30/17: LVEF 60-65%, normal wall motion normal RV structure -Patient currently reports she is no more swollen than baseline, though appears fluid overloaded -weight is actually down according to most recent outpatient OV -BLE with +3 edema and seepage, Kerlix with MOSHE Bandages applied -Patient's bicarbonate and serum osmolality did increase from yesterday Plan: -We will continue to hold Lasix -Patient will need a echocardiogram at some point in the future -Continue to monitor fluid status (4) HLD (hyperlipidemia) Current Visit: Yes Status: Chronic Assessment and Plan: Continue home statin (5) HTN (hypertension) Current Visit: Yes Status: Chronic Assessment and Plan: Blood pressure stable, continue to monitor (6) Interstitial lung disease Current Visit: Yes Status: Chronic Assessment and Plan: Patient with known history of interstitial lung disease Patient does require steroid regimen Chronically on 2 L at home Plan: Supplemental oxygen as needed Continue steroid DVT Prophylaxis: Held at this time due to significant bleeding from left lower leg - Time Spent with Patient Total time spent is greater than 50% in coordination of care (as documented) at patient's floor/unit and/or counseling patient: Internal Medicine: Result - Labs CBC & Chem 7: 09/10/18 15:00 09/10/18 04:30 Labs: Short CBC 09/10/18 Range/Units 04:30 WBC 10.3 (4.3-11.1) K/mcL Hgb 5.4 L* D (11.5-15.4) g/dL Hct 18.8 L (35.3-44.9) % Plt Count 235 (140-400) K/mcL BMP 09/10/18 04:30 Sodium 139 Potassium 4.8 D Chloride 104 Carbon Dioxide 33 H BUN 36 H Creatinine 0.91 Glucose 180 H Calcium 8.1 L - ABG Interpretation ABG results: PT/INR, D-dimer PT 30.4 Seconds (9.4-12.1) H 09/10/18 04:30 <Gregory Martin - Last Filed: 09/10/18 14:43> (1) Anemia Qualifiers: Anemia type: other cause Other causes of anemia: acute posthemorrhagic Qualified Code(s): D62 - Acute posthemorrhagic anemia (2) Atrial fibrillation Qualifiers: Atrial fibrillation type: persistent Qualified Code(s): I48.1 - Persistent atrial fibrillation (3) CHF (congestive heart failure) Qualifiers: Heart failure type: diastolic Heart failure chronicity: chronic Qualified Code(s): I50.32 - Chronic diastolic (congestive) heart failure (4) HLD (hyperlipidemia) Qualifiers: Hyperlipidemia type: mixed hyperlipidemia Qualified Code(s): E78.2 - Mixed hyperlipidemia (5) Chronic respiratory failure Qualifiers: Respiratory failure complication: hypoxia Qualified Code(s): J96.11 - Chronic respiratory failure with hypoxia (6) Type II diabetes mellitus Qualifiers: Diabetes mellitus penitentiary insulin use: without penitentiary use Diabetes mellitus complication status: without complication Qualified Code(s): E11.9 - Type 2 diabetes mellitus without complications <Caden Faust M - Last Filed: 09/10/18 18:10> (1) Anemia Qualifiers: Anemia type: other cause Other causes of anemia: acute posthemorrhagic (2) Atrial fibrillation Qualifiers: Atrial fibrillation type: persistent Qualified Code(s): I48.1 - Persistent atrial fibrillation (3) CHF (congestive heart failure) Qualifiers: Heart failure type: diastolic Heart failure chronicity: chronic Qualified Code(s): I50.32 - Chronic diastolic (congestive) heart failure (4) HLD (hyperlipidemia) Qualifiers: Hyperlipidemia type: mixed hyperlipidemia Qualified Code(s): E78.2 - Mixed hyperlipidemia (5) HTN (hypertension) Qualifiers: Hypertension type: essential hypertension Qualified Code(s): I10 - Essential (primary) hypertension
[2018-09-10] MEDS: Metoprolol XL (24 HR) Succ 25 MG TAB.ER.24H PO SCH (09:24)
[2018-09-10] MEDS: predniSONE 20 MG TABLET PO SCH (09:25)
[2018-09-10] MEDS: Insulin LISPRO 300 UNITS/3 ML VIAL SQ SCH ×4 (09:26→22:02)
[2018-09-10] MEDS: *HR* HYDROcodone/Acet 5/325 mg TABLET PO PRN ×2 (12:05→20:45)
--- NOTE | 2018-09-10 17:25 | AcuteCareSurgery Progress Note ---
Date of Encounter: 09/10/18 Time of Encounter: 17:25 - Assessment and Plan (1) Hematoma Current Visit: Yes Status: Acute POD#1 evacuation of hematoma. Coumadin DC'd and vit K given to reverse INR d/t continued bleeding after surgery. Hospitalist notified. Maintain pressure dressing. Will follow. (2) Atrial fibrillation Current Visit: Yes Status: Chronic Qualifiers: Atrial fibrillation type: persistent Qualified Code(s): I48.1 - Persistent atrial fibrillation (3) CHF (congestive heart failure) Current Visit: Yes Status: Chronic Qualifiers: Heart failure type: diastolic Heart failure chronicity: chronic Qualified Code(s): I50.32 - Chronic diastolic (congestive) heart failure (4) HTN (hypertension) Current Visit: Yes Status: Chronic Qualifiers: Hypertension type: essential hypertension Qualified Code(s): I10 - Essential (primary) hypertension (5) Type II diabetes mellitus Current Visit: Yes Status: Chronic Qualifiers: Diabetes mellitus alf insulin use: without alf use Diabetes mellitus complication status: without complication Qualified Code(s): E11.9 - Type 2 diabetes mellitus without complications Subjective Patient reports: no new complaints, feels better, still having pain, pain is less, tolerating a regular diet, flatus Narrative: Nursing reported bright red bleeding through dressing in the wee hours this am. Dressing was changed and applied with pressure. No new bleeding reported. Pt required blood transfusion today. Objective Vital Signs - Last 8 Hours Temp Pulse Resp BP Pulse Ox 09/10/18 16:27 97.5 F L 52 18 121/77 100 09/10/18 16:00 97.6 F 53 18 116/61 100 09/10/18 13:55 97.6 F 55 16 114/68 100 09/10/18 13:40 97.5 F L 54 18 107/68 100 09/10/18 13:05 97.8 F 55 16 109/67 100 09/10/18 11:04 97.3 F L 54 16 118/57 99 09/10/18 11:03 18 100 09/10/18 09:39 97.3 F L 60 18 115/75 09/10/18 09:37 97.6 F 56 18 111/69 100 09/10/18 09:36 100 Intake and Output 07/09/19 07/09/19 07/09/19 07:59 15:59 23:59 Intake Total 240 / 2465 1849 / 2465 376 / 2465 Balance 240 / 2465 1849 / 2465 376 / 2465 Intake: Oral 240 / 600 360 / 600 Blood Product 0 / 1865 1489 / 1865 376 / 1865 Rbcs Leuko Poor As-1 Unit 0 / 263 263 / 263 [id number] Rbcs Leuko Poor As-1 Unit 850 / 850 [id number] Rbcs Leuko Poor As-1 Unit 376 / 752 376 / 752 [id number] Other: Meal Lunch Percent of Meal Consumed 95% Weight 109.8 kg Blood Glucose* 226 180 327 Patient Weight 09/10/18 23:59 Weight 109.8 kg - General physical appearance no distress, moderate pain - Eyes PERRL, normal ocular movement - ENT no congestion, dry mucosa - Neck Neck exam: trachea midline, no lymphadectomy, no venous distension - Respiratory normal respiratory effort, clear to auscultation - Cardiovascular Cardiovascular exam: Present: irregular rhythm. Absent: JVD - Abdomen Abdomen: Present: bowel sounds present, soft, non tender - Musculoskeletal other (left leg dressing in place without active drainage or bleeding) - Psychiatric oriented to time, oriented to person, oriented to place - Labs 09/10/18 04:30 09/10/18 04:30 Diabetes panel 09/10/18 Range/Units 04:30 Sodium 139 (136-145) mEq/L Potassium 4.8 D (3.5-5.1) mEq/L Chloride 104 (98-107) mEq/L Carbon Dioxide 33 H (23-29) mEq/L BUN 36 H (8-23) mg/dL Creatinine 0.91 (0.60-1.20) mg/dL Glucose 180 H (70-105) mg/dL Calcium 8.1 L (8.6-10.3) mg/dL Calcium panel 09/10/18 Range/Units 04:30 Calcium 8.1 L (8.6-10.3) mg/dL Pituitary panel 09/10/18 Range/Units 04:30 Sodium 139 (136-145) mEq/L Potassium 4.8 D (3.5-5.1) mEq/L Chloride 104 (98-107) mEq/L Carbon Dioxide 33 H (23-29) mEq/L BUN 36 H (8-23) mg/dL Creatinine 0.91 (0.60-1.20) mg/dL Glucose 180 H (70-105) mg/dL Calcium 8.1 L (8.6-10.3) mg/dL Adrenal panel 09/10/18 Range/Units 04:30 Sodium 139 (136-145) mEq/L Potassium 4.8 D (3.5-5.1) mEq/L Chloride 104 (98-107) mEq/L Carbon Dioxide 33 H (23-29) mEq/L BUN 36 H (8-23) mg/dL Creatinine 0.91 (0.60-1.20) mg/dL Glucose 180 H (70-105) mg/dL Calcium 8.1 L (8.6-10.3) mg/dL Consult Discharge Plan - Plan Referrals: Aleksandar Strickland DO [Primary Care Provider] -
[2018-09-10 18:02] LABS: Hematocrit 31.5 % (35.3-44.9)
[2018-09-10 18:03] LABS: Hemoglobin 10.1 g/dL (11.5-15.4)
[2018-09-10 22:16] LABS: Hematocrit 28.5 % (35.3-44.9); Hemoglobin 9.2 g/dL (11.5-15.4)
[2018-09-11] MEDS: *HR* HYDROcodone/Acet 5/325 mg TABLET PO PRN ×4 (00:48→20:57)
[2018-09-11 04:46] LABS: INR 1.6; Prothrombin Time 17.7 Seconds (9.4-12.1)
[2018-09-11 04:52] LABS: Albumin 2.8 g/dL (3.5-5.7); Albumin/Globulin Ratio 1.6 (1.1-2.2); Bilirubin,Total 0.4 mg/dL (0.3-1.0); Calcium 8.5 mg/dL (8.6-10.3); Globulin 1.8 g/dL (2.4-3.5); Magnesium 2.4 mg/dL (1.6-2.6); Potassium 5.2 mEq/L (3.5-5.1); Total Protein 4.6 g/dL (6.4-8.9)
[2018-09-11 04:53] LABS: Hemoglobin 9.4 g/dL (11.5-15.4); Mean Corpuscular HGB Conc 31.3 g/dL (31.6-35.5); Mean Corpuscular Hemoglobin 27.2 pg (28.0-33.3); Mean Platelet Volume 10.2 fL (9.4-12.4); Nucleated Red Blood Cells 3.5 /100 WBC (0); Platelet Count 214 K/mcL (140-400); Red Blood Count 3.45 M/mcL (3.82-4.97); Red Cell Distribution Width 15.7 % (11.5-14.5); White Blood Count 14.2 K/mcL (4.3-11.1)
[2018-09-11 05:22] LABS: Lymphocytes # 2.6 K/mcL (0.6-4.6); Neutrophils # 11.4 K/mcL (1.6-8.9)
[2018-09-11 05:23] LABS: Platelet Estimate Normal (Normal)
[2018-09-11] MEDS: predniSONE 20 MG TABLET PO SCH (08:27)
[2018-09-11] MEDS: Metoprolol XL (24 HR) Succ 25 MG TAB.ER.24H PO SCH (08:27)
[2018-09-11] MEDS: Insulin LISPRO 300 UNITS/3 ML VIAL SQ SCH ×4 (08:31→20:58)
--- NOTE | 2018-09-11 09:14 | Internal Med Progress Note ---
<Dia Emanuel - Last Filed: 09/11/18 17:23> Hospitalist Progress Note - Encounter Date of Encounter: 09/11/18 - Exam Vitals: Temp Pulse Resp BP Pulse Ox 97.6 F 57 19 129/78 100 09/11/18 11:43 09/11/18 11:43 09/11/18 11:43 09/11/18 11:43 09/11/18 11:43 - Assessment and Plan (1) HLD (hyperlipidemia) Current Visit: Yes Status: Chronic (2) CHF (congestive heart failure) Current Visit: Yes Status: Chronic (3) Anemia Current Visit: Yes Status: Acute (4) Atrial fibrillation Current Visit: Yes Status: Chronic (5) Chronic respiratory failure Current Visit: Yes Status: Chronic (6) Type II diabetes mellitus Current Visit: Yes Status: Chronic (7) Hematoma Current Visit: Yes Status: Acute - Time Spent with Patient Total time spent is greater than 50% in coordination of care (as documented) at patient's floor/unit and/or counseling patient: Internal Medicine: Result - Labs CBC & Chem 7: 09/11/18 03:57 09/11/18 13:00 Labs: Short CBC 09/10/18 09/10/18 09/11/18 Range/Units 15:00 22:05 03:57 WBC 14.2 H (4.3-11.1) K/mcL Hgb 10.1 L D 9.2 L 9.4 L (11.5-15.4) g/dL Hct 31.5 L 28.5 L 30.0 L (35.3-44.9) % Plt Count 214 (140-400) K/mcL Neutrophils # 11.4 H (1.6-8.9) K/mcL BMP 09/11/18 09/11/18 03:57 13:00 Sodium 139 141 Potassium 5.2 H 4.9 Chloride 102 101 Carbon Dioxide 29 29 BUN 56 H 60 H Creatinine 1.76 H 1.64 H Glucose 215 H 264 H Calcium 8.5 L 8.3 L Liver Function 09/11/18 Range/Units 03:57 Total Bilirubin 0.4 (0.3-1.0) mg/dL AST 7 L (13-39) Units/L ALT 10 (7-52) Units/L Alkaline Phosphatase 43 (34-104) Units/L Albumin 2.8 L (3.5-5.7) g/dL - ABG Interpretation ABG results: PT/INR, D-dimer PT 17.7 Seconds (9.4-12.1) H 09/11/18 03:57 Consult Discharge Plan - Plan Referrals: Neville Thomson MD [Non-Partnered Physician] - (2 weeks after d/c) Aleksandar Strickland DO [Primary Care Provider] - - Attending Attestation I examined this patient and my medical decision-making was reviewed with the Resident Physician Dr Faust. I agree with the documented findings, disposition and treatment plan as described except to the extent set forth below. Ms Merida is admitted with afib and leg hematoma requiring surgical intervention awake, no cp, palpitations or sob. No pain in leg, denies bleeding, and has rom foot and denies numbness/tingling or temp changes gen- alert, awake,appears stated age eyes- pupils equal round , no conjunctival pallor cv- reg rate and rhythm, normal s1,s2, no murmurs appreciated, + rhona hose in place bilaterally, non pitting edema bl feet lungs- ctabl,normal resp effort abd- soft, non tender, non distended, skin- ecchymosis right dorsum of foot neuro- AAOx3, sensation intact to lt touch and equal bl toes/dorsum foot Acute Blood Loss Anemia hemodynamically stable with prbcs 09/10 -as per surgery cont ok to resume AC, is s/p Vit K for inr reversal Afib with RVR, resolved, now Sinus Bradycardia, asx Subtherapeutic INR with AC previously held and reversed due to above -cont sotalol + BB, IF goes back in to afib rvr with subtherapeutic INR cards will need notified and sotalol stopped -resume warfarin, bridge with renal doses lovenox as per pharmacy dosing recs Leg hematoma s/p evacuation- appreciate surgery input, resume ac with bridge monitor for bleeding XIN suspect pre reanl from blood loss as above- hold nephro toxic agents, repeat creat in am, if no improvement will work up other causes vte ppx- ambulate as able, not a pharm or mechanical vte cadidate due to above will obtain PT eval once leg bleeding is confirmed stable <GovindCaden michelle - Last Filed: 09/11/18 18:48> Hospitalist Progress Note - Encounter Date of Encounter: 09/11/18 Time of Encounter: 10:00 - Subjective Interval History: Patient seen and examined at bedside this morning. Patient reports no new or worsening symptoms. Pressure dressing clean dry and without evidence of bleeding. Patient denies any palpitations or chest pain. Patient did develop a slight AK this morning, likely as a result of hypovolemia. - Exam Vitals: Temp Pulse Resp BP Pulse Ox 97.6 F 53 18 111/70 100 09/11/18 07:52 09/11/18 07:52 09/11/18 07:52 09/11/18 07:52 09/11/18 07:52 Exam: Gen.: Vitals noted. Moderate pain from LLE nodule, appears to be hematoma. HEENT: PERRL/EOMI, oropharynx clear, Normocephalic, atraumatic, MMM Cardiac: Regular rate, normal sinus rhythm with second-degree AV block, no murmur, +S1/S2, 3+ BLE edema Pulmonary: Absent breath sounds in bases particularly on right, equal chest expansion, unlabored breathing Abdomen: soft, nontender, BS noted, no guarding Skin: Ecchymosis of lower extremities noted. Dressing subsequent to hematoma evacuation is in place, some blood drainage noted Neuro: A&Ox3, moves all extremities, no focal deficits, sensation intact Psych: Appropriate mood and behavior - Assessment and Plan (1) Acute kidney injury Current Visit: Yes Status: Acute Assessment and Plan: New onset XIN -Patient's creatinine baseline is around 0.8 -This morning increased to 1.64 -BUN 60, likely prerenal -Suspect secondary to hypovolemia in the setting of patient's blood loss anemia -Potassium was increased to 5.2 as well -Repeat potassium this afternoon was 4.9 Plan: -Continue to trend creatinine -Continue to hold Lasix at this time -Follow potassium levels -Consider UA/bladder scan to assess for other causes of XIN if worse tomorrow (2) Anemia Current Visit: Yes Status: Acute Assessment and Plan: Secondary to acute blood loss Patient had developed a significant hematoma in the previous days Was taken to the OR for evacuation, was found to be superficial in nature Subsequently developed significant bleeding from the incision site Patient does have chronic anemia, baseline hemoglobin of roughly 8.0 On admission her hemoglobin was 9.6, dropped to 7.8 yesterday, 5.4 this morning The patient was administered 3 units packed red blood cells Her INR was 2.7 yesterday, vitamin K was administered Today INR 1.9, no signs of bleeding, hemoglobin stable at 9.4 Plan: -Monitor surgical dressings for further signs of bleeding -Per general surgery; may restart anticoagulation at this time given no further signs of bleeding (3) Atrial fibrillation Current Visit: Yes Status: Chronic Assessment and Plan: -presented with Afib RVR, HR in the 150's -Multiple cardioversions in the past, most recent in April 2018 -Patient remains subtherapeutic INR however is trending up, 1.9 this morning -Patient appears to have self converted back to normal sinus rhythm -EKG shows occasional PAC -Assistance Coordinator signed off Plan: -Continue sotalol therapy at 160 mg every 12 hours -Patient remains in normal sinus rhythm, continue to monitor -If converts back to Afib RVR will have to stop Sotolol and resume Cardizem drip (4) CHF (congestive heart failure) Current Visit: Yes Status: Chronic Assessment and Plan: -Patient chronically fluid overloaded secondary to diastolic heart failure in addition to chronic steroid use and high salt diet -Last Echo performed 12/30/17: LVEF 60-65%, normal wall motion normal RV structure -Patient currently reports she is no more swollen than baseline, though appears fluid overloaded -weight is actually down according to most recent outpatient OV -BLE with +3 edema and seepage, Kerlix with MOSHE Bandages applied Plan: -We will continue to hold Lasix due to new development of AK in the setting of hypovolemia -Patient will need a echocardiogram at some point in the future (5) HLD (hyperlipidemia) Current Visit: Yes Status: Chronic Assessment and Plan: Continue home statin (6) HTN (hypertension) Current Visit: Yes Status: Chronic Assessment and Plan: Blood pressure stable, continue to monitor vitals (7) Interstitial lung disease Current Visit: Yes Status: Chronic Assessment and Plan: Patient with known history of interstitial lung disease Patient does require steroid regimen Chronically on 2 L at home Plan: Supplemental oxygen as needed Continue steroid DVT Prophylaxis: Subcutaneous Lovenox and Coumadin - Time Spent with Patient Total time spent is greater than 50% in coordination of care (as documented) at patient's floor/unit and/or counseling patient: Internal Medicine: Result - Labs CBC & Chem 7: 09/11/18 03:57 09/11/18 13:00 Labs: Short CBC 09/10/18 09/10/18 09/11/18 Range/Units 15:00 22:05 03:57 WBC 14.2 H (4.3-11.1) K/mcL Hgb 10.1 L D 9.2 L 9.4 L (11.5-15.4) g/dL Hct 31.5 L 28.5 L 30.0 L (35.3-44.9) % Plt Count 214 (140-400) K/mcL Neutrophils # 11.4 H (1.6-8.9) K/mcL BMP 09/11/18 03:57 Sodium 139 Potassium 5.2 H Chloride 102 Carbon Dioxide 29 BUN 56 H Creatinine 1.76 H Glucose 215 H Calcium 8.5 L Liver Function 09/11/18 Range/Units 03:57 Total Bilirubin 0.4 (0.3-1.0) mg/dL AST 7 L (13-39) Units/L ALT 10 (7-52) Units/L Alkaline Phosphatase 43 (34-104) Units/L Albumin 2.8 L (3.5-5.7) g/dL - ABG Interpretation ABG results: PT/INR, D-dimer PT 17.7 Seconds (9.4-12.1) H 09/11/18 03:57 <Dia Emanuel - Last Filed: 09/11/18 17:23> (1) HLD (hyperlipidemia) Qualifiers: Hyperlipidemia type: mixed hyperlipidemia Qualified Code(s): E78.2 - Mixed hyperlipidemia (2) CHF (congestive heart failure) Qualifiers: Heart failure type: diastolic Heart failure chronicity: chronic Qualified Code(s): I50.32 - Chronic diastolic (congestive) heart failure (3) Anemia Qualifiers: Anemia type: other cause Other causes of anemia: acute posthemorrhagic Qualified Code(s): D62 - Acute posthemorrhagic anemia (4) Atrial fibrillation Qualifiers: Atrial fibrillation type: persistent Qualified Code(s): I48.1 - Persistent atrial fibrillation (5) Chronic respiratory failure Qualifiers: Respiratory failure complication: hypoxia Qualified Code(s): J96.11 - Chronic respiratory failure with hypoxia (6) Type II diabetes mellitus Qualifiers: Diabetes mellitus group home insulin use: without stator tester use Diabetes mellitus complication status: without complication Qualified Code(s): E11.9 - Type 2 diabetes mellitus without complications <Caden Faust M - Last Filed: 09/11/18 18:48> (2) Anemia Qualifiers: Anemia type: other cause Other causes of anemia: acute posthemorrhagic Qualified Code(s): D62 - Acute posthemorrhagic anemia (3) Atrial fibrillation Qualifiers: Atrial fibrillation type: persistent Qualified Code(s): I48.1 - Persistent atrial fibrillation (4) CHF (congestive heart failure) Qualifiers: Heart failure type: diastolic Heart failure chronicity: chronic Qualified Code(s): I50.32 - Chronic diastolic (congestive) heart failure (5) HLD (hyperlipidemia) Qualifiers: Hyperlipidemia type: mixed hyperlipidemia Qualified Code(s): E78.2 - Mixed hyperlipidemia (6) HTN (hypertension) Qualifiers: Hypertension type: essential hypertension Qualified Code(s): I10 - Essential (primary) hypertension
[2018-09-11 13:49] LABS: Calcium 8.3 mg/dL (8.6-10.3); Potassium 4.9 mEq/L (3.5-5.1)
--- NOTE | 2018-09-11 14:18 | AcuteCareSurgery Progress Note ---
<Lucia Pinedo - Last Filed: 09/11/18 14:23> Date of Encounter: 09/11/18 Time of Encounter: 11:30 - Assessment and Plan (1) Hematoma Current Visit: Yes Status: Acute Date of procedure: 09/09/18 Pre-op diagnosis: LLE hematoma Post-op diagnosis: same Procedure: Evacuation of LLE hematoma Complications: none Anesthesia: GETA Surgeon: Justyn Spence POD #2 as above. On POD #1, pt had bleeding from the site. Vit K was given. Dressing changed today per this SOCIAL WORK SPECIALIST and bedside RN. There remained a small amount of oozing, but no kendra bleeding. There is a hemotoma present in the surgical site that extends aprox 1 cm under the lateral edges. There is an area of oozing at aprox 5 oclock. The area is covered with surgicel, the entire wound is covered with ada ptic, then a wet to dry dressing placed. We will continue wound care. OK to resume anticoagulation as long as no return of bleeidng noted. She is expected to have oozing as the hematoma liquefies however this should appear maroon in character rather than bright red. Follow-up in wound care aprox 2 weeks after d/c. Subjective Patient reports: no new complaints, feels better, still having pain, pain is less, afebrile Objective Vital Signs - Last 8 Hours Temp Pulse Resp BP Pulse Ox 09/11/18 11:43 97.6 F 57 19 129/78 100 09/11/18 09:10 97.2 F L 57 20 123/74 100 09/11/18 07:52 97.6 F 53 18 111/70 100 09/11/18 07:34 18 99 Intake and Output 09/10/18 09/11/18 09/11/18 23:59 07:59 15:59 Intake Total 616 / 2705 0 / 480 480 / 480 Output Total 0 / 0 0 / 0 Balance 616 / 2705 0 / 480 480 / 480 Intake: Oral 240 / 840 0 / 480 480 / 480 Blood Product 376 / 1865 Rbcs Leuko Poor As-1 Unit 376 / 752 [id number] Output: Urine 0 / 0 0 / 0 Other: Meal Dinner Lunch Percent of Meal Consumed 100% 90% # Voids 1 Blood Glucose* 339 179 245 - General physical appearance no distress - ENT atraumatic, normocephalic - Integumentary other (LLE is with hematoma (see A/P for further detail)) - Psychiatric oriented to time, oriented to person, oriented to place, speech is normal - Labs 09/11/18 03:57 09/11/18 13:00 Diabetes panel 09/11/18 09/11/18 Range/Units 03:57 13:00 Sodium 139 141 (136-145) mEq/L Potassium 5.2 H 4.9 (3.5-5.1) mEq/L Chloride 102 101 (98-107) mEq/L Carbon Dioxide 29 29 (23-29) mEq/L BUN 56 H 60 H (8-23) mg/dL Creatinine 1.76 H 1.64 H (0.60-1.20) mg/dL Glucose 215 H 264 H (70-105) mg/dL Calcium 8.5 L 8.3 L (8.6-10.3) mg/dL AST 7 L (13-39) Units/L ALT 10 (7-52) Units/L Alkaline Phosphatase 43 (34-104) Units/L Albumin 2.8 L (3.5-5.7) g/dL Calcium panel 09/11/18 09/11/18 Range/Units 03:57 13:00 Calcium 8.5 L 8.3 L (8.6-10.3) mg/dL Albumin 2.8 L (3.5-5.7) g/dL Pituitary panel 09/11/18 09/11/18 Range/Units 03:57 13:00 Sodium 139 141 (136-145) mEq/L Potassium 5.2 H 4.9 (3.5-5.1) mEq/L Chloride 102 101 (98-107) mEq/L Carbon Dioxide 29 29 (23-29) mEq/L BUN 56 H 60 H (8-23) mg/dL Creatinine 1.76 H 1.64 H (0.60-1.20) mg/dL Glucose 215 H 264 H (70-105) mg/dL Calcium 8.5 L 8.3 L (8.6-10.3) mg/dL Adrenal panel 09/11/18 09/11/18 Range/Units 03:57 13:00 Sodium 139 141 (136-145) mEq/L Potassium 5.2 H 4.9 (3.5-5.1) mEq/L Chloride 102 101 (98-107) mEq/L Carbon Dioxide 29 29 (23-29) mEq/L BUN 56 H 60 H (8-23) mg/dL Creatinine 1.76 H 1.64 H (0.60-1.20) mg/dL Glucose 215 H 264 H (70-105) mg/dL Calcium 8.5 L 8.3 L (8.6-10.3) mg/dL Total Bilirubin 0.4 (0.3-1.0) mg/dL AST 7 L (13-39) Units/L ALT 10 (7-52) Units/L Alkaline Phosphatase 43 (34-104) Units/L Albumin 2.8 L (3.5-5.7) g/dL Consult Discharge Plan - Plan Referrals: Aleksandar Strickland DO [Primary Care Provider] - Neville Thomson MD [Non-Partnered Physician] - (2 weeks after d/c) <Roderick Brown - Last Filed: 09/11/18 21:47> Date of Encounter: 09/11/18 Objective Vital Signs - Last 8 Hours Temp Pulse Resp BP Pulse Ox 09/11/18 19:36 18 100 09/11/18 16:26 97.7 F 52 18 120/73 99 Intake and Output 09/11/18 09/11/18 09/11/18 07:59 15:59 23:59 Intake Total 0 / 480 480 / 480 Output Total 0 / 0 Balance 0 / 480 480 / 480 Intake: Oral 0 / 480 480 / 480 Output: Urine 0 / 0 Other: Meal Lunch Percent of Meal Consumed 90% Blood Glucose* 179 245 247 - Labs 09/11/18 03:57 09/11/18 13:00 Diabetes panel 09/11/18 09/11/18 Range/Units 03:57 13:00 Sodium 139 141 (136-145) mEq/L Potassium 5.2 H 4.9 (3.5-5.1) mEq/L Chloride 102 101 (98-107) mEq/L Carbon Dioxide 29 29 (23-29) mEq/L BUN 56 H 60 H (8-23) mg/dL Creatinine 1.76 H 1.64 H (0.60-1.20) mg/dL Glucose 215 H 264 H (70-105) mg/dL Calcium 8.5 L 8.3 L (8.6-10.3) mg/dL AST 7 L (13-39) Units/L ALT 10 (7-52) Units/L Alkaline Phosphatase 43 (34-104) Units/L Albumin 2.8 L (3.5-5.7) g/dL Calcium panel 09/11/18 09/11/18 Range/Units 03:57 13:00 Calcium 8.5 L 8.3 L (8.6-10.3) mg/dL Albumin 2.8 L (3.5-5.7) g/dL Pituitary panel 09/11/18 09/11/18 Range/Units 03:57 13:00 Sodium 139 141 (136-145) mEq/L Potassium 5.2 H 4.9 (3.5-5.1) mEq/L Chloride 102 101 (98-107) mEq/L Carbon Dioxide 29 29 (23-29) mEq/L BUN 56 H 60 H (8-23) mg/dL Creatinine 1.76 H 1.64 H (0.60-1.20) mg/dL Glucose 215 H 264 H (70-105) mg/dL Calcium 8.5 L 8.3 L (8.6-10.3) mg/dL Adrenal panel 09/11/18 09/11/18 Range/Units 03:57 13:00 Sodium 139 141 (136-145) mEq/L Potassium 5.2 H 4.9 (3.5-5.1) mEq/L Chloride 102 101 (98-107) mEq/L Carbon Dioxide 29 29 (23-29) mEq/L BUN 56 H 60 H (8-23) mg/dL Creatinine 1.76 H 1.64 H (0.60-1.20) mg/dL Glucose 215 H 264 H (70-105) mg/dL Calcium 8.5 L 8.3 L (8.6-10.3) mg/dL Total Bilirubin 0.4 (0.3-1.0) mg/dL AST 7 L (13-39) Units/L ALT 10 (7-52) Units/L Alkaline Phosphatase 43 (34-104) Units/L Albumin 2.8 L (3.5-5.7) g/dL - Attending Attestation I have personally performed a face to face evaluation on this patient. I have reviewed and agree with the care plan. History and Exam by me shows: the patient is seen and evaluated. Correction of coagulopathy is essential. Continue with current dressing changes Roderick Brown MD FACS
[2018-09-11] MEDS ORDERED: *HR* Enoxaparin 120 MG/0.8 ML SYRINGE SQ SCH (18:00)
[2018-09-11] MEDS: Melatonin 3 MG TABLET PO PRN (20:58)
[2018-09-12 04:10] LABS: Hematocrit 25.3 % (35.3-44.9); Hemoglobin 7.9 g/dL (11.5-15.4); Mean Corpuscular HGB Conc 31.2 g/dL (31.6-35.5); Mean Corpuscular Hemoglobin 27.1 pg (28.0-33.3); Mean Corpuscular Volume 86.9 fL (83.0-100.0); Mean Platelet Volume 9.7 fL (9.4-12.4); Platelet Count 177 K/mcL (140-400); Red Blood Count 2.91 M/mcL (3.82-4.97); Red Cell Distribution Width 15.9 % (11.5-14.5); White Blood Count 11.2 K/mcL (4.3-11.1)
[2018-09-12 05:21] LABS: INR 1.1; Prothrombin Time 12.9 Seconds (9.4-12.1)
[2018-09-12 05:35] LABS: Alanine Aminotransferase 9 Units/L (7-52); Albumin 2.7 g/dL (3.5-5.7); Albumin/Globulin Ratio 1.6 (1.1-2.2); Alkaline Phosphatase 37 Units/L (34-104); Aspartate Amino Transferase 8 Units/L (13-39); BUN/Creatinine Ratio 48 (6-26); Bilirubin,Total 0.4 mg/dL (0.3-1.0); Blood Urea Nitrogen 52 mg/dL (8-23); Calcium 8.3 mg/dL (8.6-10.3); Carbon Dioxide 31 mEq/L (23-29); Chloride 105 mEq/L (98-107); Globulin 1.7 g/dL (2.4-3.5); Glucose 166 mg/dL (70-105); Magnesium 2.4 mg/dL (1.6-2.6); Osmolality,Calculated 310 (280-300); Potassium 5.1 mEq/L (3.5-5.1); Sodium 141 mEq/L (136-145); Total Protein 4.4 g/dL (6.4-8.9); eGFR For African Americans > 60 (> 60); eGFR For Non-African Americans 50 (> 60)
--- NOTE | 2018-09-12 07:36 | Internal Med Progress Note ---
<Caden Faust M - Last Filed: 09/12/18 15:15> Hospitalist Progress Note - Encounter Date of Encounter: 09/12/18 Time of Encounter: 09:00 - Subjective Interval History: Patient was seen and examined at bedside this morning. Patient did report significant pain overnight in her right lower foot secondary to pressure from the [place] and buildup of fluid. The [place] was removed in the middle of the night, swelling subsequently decreased, patient reports improved pain. Patient remains normal sinus rhythm, no additional complaints at this time. Of note, patient did have another significant drop in hemoglobin 9.4-7.9, repeat H&H was up to 8.4, back to baseline. No more signs of bleeding. We will continue to monitor. Coumadin on hold at this time we will consider resuming this evening. - Exam Vitals: Temp Pulse Resp BP Pulse Ox 97.7 F 52 15 104/50 100 09/12/18 07:19 09/12/18 07:19 09/12/18 07:19 09/12/18 07:19 09/12/18 07:19 Exam: Gen.: Vitals noted. Patient does have mild pain in the right lower foot secondary to swelling HEENT: PERRL/EOMI, oropharynx clear, Normocephalic, atraumatic, MMM Cardiac: Regular rate, normal sinus rhythm with second-degree AV block, no murmur, +S1/S2, +1 edema right lower extremity, +3 edema left lower extremity Pulmonary: Absent breath sounds in bases particularly on right, equal chest expansion, unlabored breathing Abdomen: soft, nontender, BS noted, no guarding Skin: Ecchymosis of lower extremities noted. Dressing changed overnight, no new evidence of bleeding Neuro: A&Ox3, moves all extremities, no focal deficits, sensation intact Psych: Appropriate mood and behavior - Assessment and Plan (1) Anemia Current Visit: Yes Status: Acute Assessment and Plan: Secondary to acute blood loss Patient had developed a significant hematoma in the previous days Was taken to the OR for evacuation, was found to be superficial in nature Subsequently developed significant bleeding from the incision site Patient does have chronic anemia, baseline hemoglobin of roughly 8.0 On admission her hemoglobin was 9.6, dropped to 5.4 secondary to hematoma evacuation The patient was administered 3 units packed red blood cells Her INR was 2.7 yesterday, vitamin K was administered Patient does not exhibit any signs symptoms of bleeding at this time INR continues to be subtherapeutic, 1.1 this morning PLAN: -Resume Coumadin this evening if no more signs of bleeding, pharmacy to dose (2) Atrial fibrillation Current Visit: Yes Status: Chronic Assessment and Plan: -presented with Afib RVR, HR in the 150's -Multiple cardioversions in the past, most recent in April 2018 -Patient INR was therapeutic however subsequently developed hematoma with significant blood loss anemia -Required multiple transfusions, hemoglobin since normalized -Coumadin and Lovenox were held and INR was reversed -INR this morning was 1.1, no evidence of bleeding at this time Plan: -Continue sotalol therapy at 160 mg every 12 hours -Patient remains in normal sinus rhythm, continue to monitor -If converts back to Afib RVR will have to stop Sotolol and resume Cardizem drip -Patient is currently subtherapeutic on her INR but signs and symptoms of bleeding have abated -If this continues, plan to resume her warfarin with pharmacy to dose until patient therapeutic 2-3 -No plan to resume Lovenox at this time secondary to acute blood loss anemia, hematoma, XIN (3) Acute kidney injury Current Visit: Yes Status: Acute Assessment and Plan: New onset XIN -Patient's baseline creatinine 0.8, yesterday increased to 1.64 -Likely prerenal secondary hypovolemia in the setting of blood loss -Has resolved as of this morning, creatinine 1.08 Plan: -Continue to trend creatinine -Continue to hold Lasix at this time -Creatinine has improved, BUN still significantly elevated (4) CHF (congestive heart failure) Current Visit: Yes Status: Chronic Assessment and Plan: -Patient chronically fluid overloaded secondary to diastolic heart failure in addition to chronic steroid use and high salt diet -Last Echo performed 12/30/17: LVEF 60-65%, normal wall motion normal RV structure -Patient currently reports she is no more swollen than baseline, though appears fluid overloaded -weight is actually down according to most recent outpatient OV -Vision lungs are clear, lower extremity edema no worse than normal per patient Plan: -We will continue to hold Lasix -Patient will need a echocardiogram at some point in the future (5) HLD (hyperlipidemia) Current Visit: Yes Status: Chronic Assessment and Plan: Continues statin (6) HTN (hypertension) Current Visit: Yes Status: Chronic Assessment and Plan: Continue metoprolol (7) Interstitial lung disease Current Visit: Yes Status: Chronic Assessment and Plan: Known history of interstitial lung disease We will continue her steroid DVT Prophylaxis: DVT prophylaxis on hold at this time, we will consider resuming with Coumadin this evening, no plan for a bridge secondary to significant blood loss. - Time Spent with Patient Total time spent is greater than 50% in coordination of care (as documented) at patient's floor/unit and/or counseling patient: Internal Medicine: Result - Labs CBC & Chem 7: 09/12/18 14:05 09/12/18 04:50 Labs: Short CBC 09/12/18 Range/Units 04:00 WBC 11.2 H (4.3-11.1) K/mcL Hgb 7.9 L D (11.5-15.4) g/dL Hct 25.3 L (35.3-44.9) % Plt Count 177 (140-400) K/mcL BMP 09/11/18 09/12/18 13:00 04:50 Sodium 141 141 Potassium 4.9 5.1 Chloride 101 105 Carbon Dioxide 29 31 H BUN 60 H 52 H Creatinine 1.64 H 1.08 Glucose 264 H 166 H Calcium 8.3 L 8.3 L Liver Function 09/12/18 Range/Units 04:50 Total Bilirubin 0.4 (0.3-1.0) mg/dL AST 8 L (13-39) Units/L ALT 9 (7-52) Units/L Alkaline Phosphatase 37 (34-104) Units/L Albumin 2.7 L (3.5-5.7) g/dL - ABG Interpretation ABG results: PT/INR, D-dimer PT 12.9 Seconds (9.4-12.1) H 09/12/18 04:50 Consult Discharge Plan - Plan Referrals: Neville Thomson MD [Non-Partnered Physician] - (2 weeks after d/c) Aleksandar Strickland DO [Primary Care Provider] - <Dia Emanuel - Last Filed: 09/12/18 15:57> Hospitalist Progress Note - Encounter Date of Encounter: 09/12/18 - Exam Vitals: Temp Pulse Resp BP Pulse Ox 98.1 F 56 16 110/70 98 09/12/18 11:46 09/12/18 11:46 09/12/18 11:46 09/12/18 11:46 09/12/18 11:46 - Assessment and Plan (1) HLD (hyperlipidemia) Current Visit: Yes Status: Chronic (2) CHF (congestive heart failure) Current Visit: Yes Status: Chronic (3) Anemia Current Visit: Yes Status: Acute (4) Atrial fibrillation Current Visit: Yes Status: Chronic (5) Chronic respiratory failure Current Visit: Yes Status: Chronic (6) Type II diabetes mellitus Current Visit: Yes Status: Chronic (7) Hematoma Current Visit: Yes Status: Acute - Time Spent with Patient Total time spent is greater than 50% in coordination of care (as documented) at patient's floor/unit and/or counseling patient: Internal Medicine: Result - Labs CBC & Chem 7: 09/12/18 14:05 09/12/18 04:50 Labs: Short CBC 09/12/18 09/12/18 09/12/18 Range/Units 04:00 08:21 14:05 WBC 11.2 H (4.3-11.1) K/mcL Hgb 7.9 L D 7.9 L 8.4 L (11.5-15.4) g/dL Hct 25.3 L 25.8 L 27.9 L (35.3-44.9) % Plt Count 177 (140-400) K/mcL BMP 09/12/18 04:50 Sodium 141 Potassium 5.1 Chloride 105 Carbon Dioxide 31 H BUN 52 H Creatinine 1.08 Glucose 166 H Calcium 8.3 L Liver Function 09/12/18 Range/Units 04:50 Total Bilirubin 0.4 (0.3-1.0) mg/dL AST 8 L (13-39) Units/L ALT 9 (7-52) Units/L Alkaline Phosphatase 37 (34-104) Units/L Albumin 2.7 L (3.5-5.7) g/dL - ABG Interpretation ABG results: PT/INR, D-dimer PT 12.9 Seconds (9.4-12.1) H 09/12/18 04:50 - Attending Attestation I examined this patient and my medical decision-making was reviewed with the Resident Physician Dr Faust. I agree with the documented findings, disposition and treatment plan as described except to the extent set forth below. Ms Merida is admitted with afib and leg hematoma requiring surgical intervention awake,denies bleeding, lightheadedness, dizziness, cp or sob. no palpitations. RLE pain is now gone with boot removed. She notes her toes are always cold on that foot and her leg feels baseline. She notes swelling in bilateral legs is better than baseline. Discussed hgb drop, risk of re bleeding into hematoma/life threatening bleeding, vs subtherapeutic INR and risk of going back into afib with associated stroke risk. She is very fearful of stroke, bt understands risk of bleeding is significant. We will hold lovenox today but cont warfarin this evening and re eval in am which she is agreeable to risk vs benefit of the above gen- alert, awake,appears stated age cv- reg rate and rhythm, normal s1,s2, no murmurs appreciated, + rhona hose in place bilaterally, non pitting edema bl feet unchanged, pitting above hose on LLE to knee, cool right toes, warm dorsum of foot, normal pt/dp pulses on right LE, warm LLE toes and foot with normal pt/dp pulses lungs- ctabl,normal resp effort on o2 nc skin- ecchymosis right dorsum of foot neuro- AAOx3, sensation intact to lt touch and equal bl toes/dorsum foot Acute Blood Loss Anemia hemodynamically stable with prbcs 09/10, now hgb drop 09/12 after staring lovenox bridge -stop lovenox today, repeat hgb this morning stable, cont warfarin tonight, will re assess in am if attempt at bridge again, low threshold for re image leg if develops RLE pain Afib with RVR, resolved, now Sinus Bradycardia, asx Subtherapeutic INR with AC previously held and reversed due to above -cont sotalol + BB, IF goes back in to afib rvr with subtherapeutic INR cards will need notified and sotalol stopped -give warfarin, bridge with lovenox held today Leg hematoma s/p evacuation- appreciate surgery input, monitor for change in RLE sxs/exam and contact surgery if acute changes XIN suspect pre reanl from blood loss as above-resolved vte ppx- ambulate as able, not a pharm or mechanical vte candidate due to above dispo- pt/ot evals pending <Caden Faust M - Last Filed: 09/12/18 15:15> (1) Anemia Qualifiers: Anemia type: other cause Other causes of anemia: acute posthemorrhagic Qual ified Code(s): D62 - Acute posthemorrhagic anemia (2) Atrial fibrillation Qualifiers: Atrial fibrillation type: persistent Qualified Code(s): I48.1 - Persistent atrial fibrillation (4) CHF (congestive heart failure) Qualifiers: Heart failure type: diastolic Heart failure chronicity: chronic Qualified Code(s): I50.32 - Chronic diastolic (congestive) heart failure (5) HLD (hyperlipidemia) Qualifiers: Hyperlipidemia type: mixed hyperlipidemia Qualified Code(s): E78.2 - Mixed hyperlipidemia (6) HTN (hypertension) Qualifiers: Hypertension type: essential hypertension Qualified Code(s): I10 - Essential (primary) hypertension <Dia Emanuel M - Last Filed: 09/12/18 15:57> (1) HLD (hyperlipidemia) Qualifiers: Hyperlipidemia type: mixed hyperlipidemia Qualified Code(s): E78.2 - Mixed hyperlipidemia (2) CHF (congestive heart failure) Qualifiers: Heart failure type: diastolic Heart failure chronicity: chronic Qualified Code(s): I50.32 - Chronic diastolic (congestive) heart failure (3) Anemia Qualifiers: Anemia type: other cause Other causes of anemia: acute posthemorrhagic Qualified Code(s): D62 - Acute posthemorrhagic anemia (4) Atrial fibrillation Qualifiers: Atrial fibrillation type: persistent Qualified Code(s): I48.1 - Persistent atrial fibrillation (5) Chronic respiratory failure Qualifiers: Respiratory failure complication: hypoxia Qualified Code(s): J96.11 - Chronic respiratory failure with hypoxia (6) Type II diabetes mellitus Qualifiers: Diabetes mellitus termite renewal inspector insulin use: without termite renewal inspector use Diabetes mellitus complication status: without complication Qualified Code(s): E11.9 - Type 2 diabetes mellitus without complications
[2018-09-12] MEDS: Insulin LISPRO 300 UNITS/3 ML VIAL SQ SCH ×4 (07:47→21:30)
[2018-09-12] MEDS: Metoprolol XL (24 HR) Succ 25 MG TAB.ER.24H PO SCH (07:56)
[2018-09-12] MEDS: predniSONE 20 MG TABLET PO SCH (07:56)
[2018-09-12] MEDS: *HR* HYDROcodone/Acet 5/325 mg TABLET PO PRN ×3 (07:59→18:00)
[2018-09-12 08:35] LABS: Hematocrit 25.8 % (35.3-44.9); Hemoglobin 7.9 g/dL (11.5-15.4)
[2018-09-12 15:00] LABS: Hematocrit 27.9 % (35.3-44.9); Hemoglobin 8.4 g/dL (11.5-15.4)
--- NOTE | 2018-09-12 15:14 | Electrocardiograph Report ---
[place] [id number] Test Date: 2018-09-07 Pat Name: Erica Merida Department: 112 Room: 2A63 Gender: F Event [employer] Intern: : 1950 Requested By: Dia Emanuel Order Number: [id number] Reading MD: Lisa Burnett Measurements Intervals [place] Rate: 68 P: NV: 0 QRS: 12 QRSD: 80 T: 32 QT: 405 QTc: 423 Interpretive Statements ATRIAL FLUTTER/TACHYCARDIA ABNORMAL RHYTHM ECG Electronically Signed On 09-12-2018 15:13:04 EDT by Lisa Burnett
[2018-09-12] MEDS ORDERED: *HR* Warfarin 2 MG TABLET PO ONE (18:00)
[2018-09-13] MEDS: *HR* HYDROcodone/Acet 5/325 mg TABLET PO PRN ×4 (01:02→23:47)
[2018-09-13 04:03] LABS: Hematocrit 24.1 % (35.3-44.9); Hemoglobin 7.4 g/dL (11.5-15.4); Mean Corpuscular HGB Conc 30.7 g/dL (31.6-35.5); Mean Corpuscular Hemoglobin 27.9 pg (28.0-33.3); Mean Corpuscular Volume 90.9 fL (83.0-100.0); Mean Platelet Volume 9.8 fL (9.4-12.4); Platelet Count 178 K/mcL (140-400); Red Blood Count 2.65 M/mcL (3.82-4.97); Red Cell Distribution Width 15.8 % (11.5-14.5); White Blood Count 8.4 K/mcL (4.3-11.1)
[2018-09-13 04:14] LABS: Prothrombin Time 10.9 Seconds (9.4-12.1)
[2018-09-13 04:17] LABS: BUN/Creatinine Ratio 49 (6-26); Blood Urea Nitrogen 49 mg/dL (8-23); Calcium 8.3 mg/dL (8.6-10.3); Carbon Dioxide 32 mEq/L (23-29); Chloride 106 mEq/L (98-107); Glucose 150 mg/dL (70-105); Magnesium 2.4 mg/dL (1.6-2.6); Osmolality,Calculated 314 (280-300); Potassium 4.6 mEq/L (3.5-5.1); Sodium 144 mEq/L (136-145); eGFR For African Americans > 60 (> 60); eGFR For Non-African Americans 56 (> 60)
[2018-09-13] MEDS: Insulin LISPRO 300 UNITS/3 ML VIAL SQ SCH ×4 (07:51→23:24)
[2018-09-13] MEDS: predniSONE 20 MG TABLET PO SCH (07:52)
[2018-09-13] MEDS: Metoprolol XL (24 HR) Succ 25 MG TAB.ER.24H PO SCH (07:52)
--- NOTE | 2018-09-13 13:44 | Internal Med Progress Note ---
<Caden Faust M - Last Filed: 09/13/18 14:51> Hospitalist Progress Note - Encounter Date of Encounter: 09/13/18 Time of Encounter: 08:00 - Subjective Interval History: His crusting was seen and examined at bedside. She reports no new or worsening complaints overnight. She does continue to have some mild drainage from her le ft lower extremity hematoma site. Dressing was changed today without event surgery did not notice any new bright red blood. She remains in normal sinus rhythm at this time, INR this morning was 1.0. Patient was restarted on her Coumadin 2 nights ago, Lovenox still being held secondary to active bleed. Of note, hemoglobin did drop overnight from 8.4-7.4 this morning. One unit PRBCs will be infused and patient's H&H will be rechecked in the afternoon. Patient is also significantly edematous on exam this morning. We will resume her on 40 mg by mouth daily Lasix. - Exam Vitals: Temp Pulse Resp BP Pulse Ox 98.1 F 56 18 111/69 99 09/13/18 11:55 09/13/18 11:55 09/13/18 11:55 09/13/18 11:55 09/13/18 11:55 Exam: Gen.: Vitals noted. Patient does have mild pain in the right lower foot secondary to swelling HEENT: PERRL/EOMI, oropharynx clear, Normocephalic, atraumatic, MMM Cardiac: Regular rate, normal sinus rhythm with second-degree AV block, no murmur, +S1/S2, significantly edematous on exam today Pulmonary: Absent breath sounds in bases particularly on right, equal chest expansion, unlabored breathing Abdomen: soft, nontender, BS noted, no guarding Skin: Ecchymosis of lower extremities noted. Dressing changed today, minimal bleeding. Neuro: A&Ox3, moves all extremities, no focal deficits, sensation intact Psych: Appropriate mood and behavior - Assessment and Plan (1) Anemia Current Visit: Yes Status: Acute Assessment and Plan: Secondary to acute blood loss Patient had developed a significant hematoma in the previous days Was taken to the OR for evacuation, was found to be superficial in nature Subsequently developed significant bleeding from the incision site Patient does have chronic anemia, baseline hemoglobin of roughly 8.0 On admission her hemoglobin was 9.6, dropped to 5.4 secondary to hematoma evacuation The patient was administered 3 units packed red blood cells INR 2.7, vitamin K had been administered,lovenox held Overnight patient's hemoglobin dropped from 8.4 - 7.4, 1 unit PRBCs infused PLAN: -Resume Coumadin -Recheck H&H -Monitor for signs symptoms of bleeding -Continue to trend PT/INR (2) Atrial fibrillation Current Visit: Yes Status: Chronic Assessment and Plan: -presented with Afib RVR, HR in the 150's -Multiple cardioversions in the past, most recent in April 2018 -Patient INR was therapeutic however subsequently developed hematoma with significant blood loss anemia -Required multiple transfusions, hemoglobin since normalized -Coumadin and Lovenox were held and INR was reversed -INR this morning 1.0, no evidence of bleeding Plan: -Continue sotalol therapy at 160 mg every 12 hours -Patient remains in normal sinus rhythm, continue to monitor -If converts back to Afib RVR will have to stop Sotolol and resume Cardizem drip -Patient is currently subtherapeutic on her INR but signs and symptoms of bleeding have abated -Continue Coumadin, pharmacy to dose, goal 2-3 (3) Acute kidney injury Current Visit: Yes Status: Acute Assessment and Plan: New onset XIN -Patient's baseline creatinine 0.8, yesterday increased to 1.64 -Likely prerenal secondary hypovolemia in the setting of blood loss -Has since resolved -Patient now significantly edematous Plan: -Continue to trend creatinine -Creatinine has improved, BUN still significantly elevated -will add in 40 PO daily Lasix to help with fluid overload (4) CHF (congestive heart failure) Current Visit: Yes Status: Chronic Assessment and Plan: -Patient chronically fluid overloaded secondary to diastolic heart failure in addition to chronic steroid use and high salt diet -Last Echo performed 12/30/17: LVEF 60-65%, normal wall motion normal RV structure -Patient currently reports she is no more swollen than baseline, though appears fluid overloaded -weight is actually down according to most recent outpatient OV -Patient reports no more fluid overloaded than normal; has chronic peripheral edema -However, on exam she does seem more edematous than prior days -BUN significantly elevated, creatine at basline Plan: -Resume patients oral Lasix, 40 PO daily for now -Patient will need a echocardiogram at some point in the future (5) HLD (hyperlipidemia) Current Visit: Yes Status: Chronic Assessment and Plan: Continue statin (6) HTN (hypertension) Current Visit: Yes Status: Chronic Assessment and Plan: Continue sotalol and metoprolol (7) Interstitial lung disease Current Visit: Yes Status: Chronic Assessment and Plan: Patient with known history interstitial lung disease continue steroid DVT Prophylaxis: Coumadin. Currently subtherapeutic but patient is significant risk for bleeding - Time Spent with Patient Total time spent is greater than 50% in coordination of care (as documented) at patient's floor/unit and/or counseling patient: Internal Medicine: Result - Labs CBC & Chem 7: 09/13/18 03:45 09/13/18 03:45 Labs: Short CBC 09/12/18 09/13/18 Range/Units 14:05 03:45 WBC 8.4 (4.3-11.1) K/mcL Hgb 8.4 L 7.4 L (11.5-15.4) g/dL Hct 27.9 L 24.1 L (35.3-44.9) % Plt Count 178 (140-400) K/mcL BMP 09/13/18 03:45 Sodium 144 Potassium 4.6 Chloride 106 Carbon Dioxide 32 H BUN 49 H Creatinine 0.99 Glucose 150 H Calcium 8.3 L - ABG Interpretation ABG results: PT/INR, D-dimer PT 10.9 Seconds (9.4-12.1) 09/13/18 03:45 Consult Discharge Plan - Plan Referrals: Neville Thomson MD [Non-Partnered Physician] - (2 weeks after d/c) Aleksandar Strickland DO [Primary Care Provider] - <Dia Emanuel - Last Filed: 09/13/18 17:45> Hospitalist Progress Note - Encounter Date of Encounter: 09/13/18 - Exam Vitals: Temp Pulse Resp BP Pulse Ox 98.0 F 57 18 123/74 100 09/13/18 16:44 09/13/18 16:44 09/13/18 16:44 09/13/18 16:44 09/13/18 16:44 - Assessment and Plan (1) HLD (hyperlipidemia) Current Visit: Yes Status: Chronic (2) CHF (congestive heart failure) Current Visit: Yes Status: Chronic (3) Anemia Current Visit: Yes Status: Acute (4) Atrial fibrillation Current Visit: Yes Status: Chronic (5) Chronic respiratory failure Current Visit: Yes Status: Chronic (6) Type II diabetes mellitus Current Visit: Yes Status: Chronic (7) Hematoma Current Visit: Yes Status: Acute - Time Spent with Patient Total time spent is greater than 50% in coordination of care (as documented) at patient's floor/unit and/or counseling patient: Internal Medicine: Result - Labs CBC & Chem 7: 09/13/18 16:20 09/13/18 03:45 Labs: Short CBC 09/13/18 09/13/18 Range/Units 03:45 16:20 WBC 8.4 (4.3-11.1) K/mcL Hgb 7.4 L 7.9 L (11.5-15.4) g/dL Hct 24.1 L 26.5 L (35.3-44.9) % Plt Count 178 (140-400) K/mcL BMP 09/13/18 03:45 Sodium 144 Potassium 4.6 Chloride 106 Carbon Dioxide 32 H BUN 49 H Creatinine 0.99 Glucose 150 H Calcium 8.3 L - ABG Interpretation ABG results: PT/INR, D-dimer PT 10.9 Seconds (9.4-12.1) 09/13/18 03:45 - Attending Attestation I examined this patient and my medical decision-making was reviewed with the Resident Physician Dr Faust. I agree with the documented findings, disposition and treatment plan as described except to the extent set forth below. Ms Merida is admitted with afib and leg hematoma requiring surgical intervention awake, denies bleeding, no pain in legs, + edema. no sob. gen- alert, awake,appears stated age cv- reg rate and rhythm, normal s1,s2, no murmurs appreciated, bl le 2+ pitting edema lungs- ctabl,normal resp effort on o2 nc skin- ecchymosis right dorsum of foot neuro- AAOx3, sensation intact to lt touch and equal bl toes/dorsum foot Acute Blood Loss Anemia hemodynamically stable but hgb down trend to 7.4 -hold lovenox again, 1 unit prbc today to avoid risk of going back into afib without full AC in place ad pt agrees, and will consider resuming bridge when hgb confirms stability, follow up hgb will likely be done during evening shift and night team to follow if so Afib with RVR, resolved, now Sinus Bradycardia, asx Subtherapeutic INR with AC previously held and reversed due to above -cont sotalol + BB, IF goes back in to afib rvr with subtherapeutic INR cards will need notified and sotalol stopped -give warfarin tonight as d/w pharmacist, bridge with lovenox held today Leg hematoma s/p evacuation- appreciate surgery input, monitor for change in RLE sxs/exam and contact surgery if acute changes vte ppx- ambulate as able, not a pharm or mechanical vte candidate due to above dispo- pt/ot eval rec home with [facility] on dc ___ <Caden Faust M - Last Filed: 09/13/18 14:51> (1) Anemia Qualifiers: Anemia type: other cause Other causes of anemia: acute posthemorrhagic Qualified Code(s): D62 - Acute posthemorrhagic anemia (2) Atrial fibrillation Qualifiers: Atrial fibrillation type: persistent Qualified Code(s): I48.1 - Persistent atrial fibrillation (4) CHF (congestive heart failure) Qualifiers: Heart failure type: diastolic Heart failure chronicity: chronic Qualified Code(s): I50.32 - Chronic diastolic (congestive) heart failure (5) HLD (hyperlipidemia) Qualifiers: Hyperlipidemia type: mixed hyperlipidemia Qualified Code(s): E78.2 - Mixed hyperlipidemia (6) HTN (hypertension) Qualifiers: Hypertension type: essential hypertension Qualified Code(s): I10 - Essential (primary) hypertension <Dia Emanuel M - Last Filed: 09/13/18 17:45> (1) HLD (hyperlipidemia) Qualifiers: Hyperlipidemia type: mixed hyperlipidemia Qualified Code(s): E78.2 - Mixed hyperlipidemia (2) CHF (congestive heart failure) Qualifiers: Heart failure type: diastolic Heart failure chronicity: chronic Qualified Code(s): I50.32 - Chronic diastolic (congestive) heart failure (3) Anemia Qualifiers: Anemia type: other cause Other causes of anemia: acute posthemorrhagic Qualified Code(s): D62 - Acute posthemorrhagic anemia (4) Atrial fibrillation Qualifiers: Atrial fibrillation type: persistent Qualified Code(s): I48.1 - Persistent atrial fibrillation (5) Chronic respiratory failure Qualifiers: Respiratory failure complication: hypoxia Qualified Code(s): J96.11 - Chronic respiratory failure with hypoxia (6) Type II diabetes mellitus Qualifiers: Diabetes mellitus fdc insulin use: without fdc use Diabetes mellitus complication status: without complication Qualified Code(s): E11.9 - Type 2 diabetes mellitus without complications
--- NOTE | 2018-09-13 13:48 | Event Note ---
Date of Encounter: 09/13/18 Time of Encounter: 13:47 Continue wound care as previously ordered. Follow-up with Dr. Thomson approximately 2 weeks after discharge from the hospital. Please call surgery if any questions or needs arise pertaining to her wound care otherwise surgery will sign off at this time. Thank you for allowing us to participate in Erica's care.
[2018-09-13] MEDS ORDERED: Furosemide 40 MG TABLET PO ONE (16:30)
[2018-09-13 16:31] LABS: Hematocrit 26.5 % (35.3-44.9); Hemoglobin 7.9 g/dL (11.5-15.4)
[2018-09-13] MEDS ORDERED: *HR* Warfarin 2.5 MG TABLET PO ONE (18:00)
[2018-09-13] MEDS ORDERED: 0.9 % Sodium Chloride 250 ML ONE (22:50)
[2018-09-13] MEDS: Melatonin 3 MG TABLET PO PRN (23:47)
[2018-09-14 04:50] LABS: Hematocrit 27.8 % (35.3-44.9); Hemoglobin 8.5 g/dL (11.5-15.4); Mean Corpuscular HGB Conc 30.6 g/dL (31.6-35.5); Mean Corpuscular Hemoglobin 28.4 pg (28.0-33.3); Mean Platelet Volume 9.9 fL (9.4-12.4); Platelet Count 194 K/mcL (140-400); Red Blood Count 2.99 M/mcL (3.82-4.97); Red Cell Distribution Width 15.4 % (11.5-14.5); White Blood Count 8.7 K/mcL (4.3-11.1)
[2018-09-14 04:58] LABS: Prothrombin Time 10.9 Seconds (9.4-12.1)
[2018-09-14 05:06] LABS: BUN/Creatinine Ratio 42 (6-26); Blood Urea Nitrogen 41 mg/dL (8-23); Calcium 8.6 mg/dL (8.6-10.3); Carbon Dioxide 34 mEq/L (23-29); Chloride 104 mEq/L (98-107); Glucose 164 mg/dL (70-105); Magnesium 2.5 mg/dL (1.6-2.6); Osmolality,Calculated 310 (280-300); Sodium 143 mEq/L (136-145); eGFR For African Americans > 60 (> 60); eGFR For Non-African Americans 56 (> 60)
[2018-09-14] MEDS: Metoprolol XL (24 HR) Succ 25 MG TAB.ER.24H PO SCH (09:29)
[2018-09-14] MEDS: predniSONE 20 MG TABLET PO SCH (09:29)
[2018-09-14] MEDS: Insulin LISPRO 300 UNITS/3 ML VIAL SQ SCH ×4 (09:29→22:03)
[2018-09-14] MEDS: *HR* HYDROcodone/Acet 5/325 mg TABLET PO PRN ×2 (09:34→22:02)
--- NOTE | 2018-09-14 11:29 | Internal Med Progress Note ---
Hospitalist Progress Note - Encounter Date of Encounter: 09/14/18 Time of Encounter: 10:30 - Subjective Interval History: awake, pleasant, no complaints, continued swelling bl legs unchanged, no pain right leg, occasional left leg pain, no sig changes. denies palpitations, cp, sob. Discussed hgb and plan to re trial lovenox bridge today which she is very happy to do. RN updated - Exam Vitals: Temp Pulse Resp BP Pulse Ox 97.8 F 55 18 127/64 98 09/14/18 08:00 09/14/18 08:00 09/14/18 08:00 09/14/18 08:00 09/14/18 08:00 Exam: gen- alert, awake,appears stated age cv- reg rate and rhythm, normal s1,s2, bl le 2+ pitting edema lungs- ctabl,normal resp effort on o2 nc abd- soft, nt, nd., + bs neuro- AAOx3, sensation intact to lt touch and equal bl toes/dorsum foot - Assessment and Plan (1) CHF (congestive heart failure) Current Visit: Yes Status: Acute (2) Anemia Current Visit: Yes Status: Acute (3) Atrial fibrillation Current Visit: Yes Status: Resolved (4) Chronic respiratory failure Current Visit: Yes Status: Chronic (5) Hematoma of leg Current Visit: Yes Status: Acute - Summary of Assessment and Plan Summary of Assessment and Plan: Acute Blood Loss Anemia hemodynamically stable post 1 unit prbc 09/13 -will trial lovenox bridge today with hgb 8s -RN monitoring for VS changes to ndicate bleeding and pt monitoring for changes in LLE to indicate hematoma -am hgb check, sooner if any changes as noted above Afib with RVR, resolved, now Sinus Bradycardia, asx Subtherapeutic INR with AC previously held and reversed due to above -cont sotalol + BB, IF goes back in to afib rvr with subtherapeutic INR cards will need notified and sotalol stopped -give warfarin tonight and bridge with lovenox Leg hematoma s/p evacuation- appreciate surgery input, monitor for change in LLE sxs/exam and contact surgery if acute changes vte ppx- AC as above dispo- pt/ot eval rec home with [facility] on dc Plan of Care Discussed with: patient Internal Medicine: Result - Labs CBC & Chem 7: 09/14/18 04:30 09/14/18 04:30 Labs: Short CBC 09/13/18 09/14/18 Range/Units 16:20 04:30 WBC 8.7 (4.3-11.1) K/mcL Hgb 7.9 L 8.5 L (11.5-15.4) g/dL Hct 26.5 L 27.8 L (35.3-44.9) % Plt Count 194 (140-400) K/mcL BMP 09/14/18 04:30 Sodium 143 Potassium 5.0 Chloride 104 Carbon Dioxide 34 H BUN 41 H Creatinine 0.98 Glucose 164 H Calcium 8.6 - ABG Interpretation ABG results: PT/INR, D-dimer PT 10.9 Seconds (9.4-12.1) 09/14/18 04:30 Consult Discharge Plan - Plan Referrals: Neville Thomson MD [Non-Partnered Physician] - (2 weeks after d/c) Aleksandar Strickland DO [Primary Care Provider] - (1) CHF (congestive heart failure) Qualifiers: Heart failure type: diastolic Heart failure chronicity: acute on chronic Qualified Code(s): I50.33 - Acute on chronic diastolic (congestive) heart failure (2) Anemia Qualifiers: Anemia type: other cause Other causes of anemia: acute posthemorrhagic Qualified Code(s): D62 - Acute posthemorrhagic anemia (3) Atrial fibrillation Qualifiers: Atrial fibrillation type: persistent Qualified Code(s): I48.1 - Persistent atrial fibrillation (4) Chronic respiratory failure Qualifiers: Respiratory failure complication: hypoxia Qualified Code(s): J96.11 - Chronic respiratory failure with hypoxia (5) Hematoma of leg Qualifiers: Encounter type: initial encounter Laterality: left Qualified Code(s): S8 0.12XA - Contusion of left lower leg, initial encounter
[2018-09-14] MEDS: *HR* Enoxaparin 120 MG/0.8 ML SYRINGE SQ SCH ×2 (14:25→17:04)
[2018-09-14] MEDS: Furosemide 40 MG TABLET PO SCH (17:04)
[2018-09-14] MEDS ORDERED: *HR* Warfarin 2.5 MG TABLET PO ONE (18:00)
[2018-09-14] MEDS: Melatonin 3 MG TABLET PO PRN (22:02)
[2018-09-15] MEDS: *HR* Enoxaparin 120 MG/0.8 ML SYRINGE SQ SCH ×2 (06:35→16:51)
[2018-09-15] MEDS: Insulin LISPRO 300 UNITS/3 ML VIAL SQ SCH ×4 (08:22→23:57)
--- NOTE | 2018-09-15 08:31 | Internal Med Progress Note ---
Hospitalist Progress Note - Encounter Date of Encounter: 09/15/18 Time of Encounter: 08:50 - Subjective Interval History: awake, pleasant, no le pain. had dressing on left leg changed last night, she notes they was some dry blood and fluid. Denies cp, pressure, palpitations, sob or presyncope. - Exam Vitals: Temp Pulse Resp BP Pulse Ox 97.6 F 51 18 126/76 100 09/15/18 07:56 09/15/18 07:56 09/15/18 07:56 09/15/18 07:56 09/15/18 07:56 Exam: gen- alert, awake,appears stated age cv- reg rate and rhythm, normal s1,s2, bl le 2+ pitting edema to below knees, normal dp/pt pulses bl lungs- ctabl,normal resp effort on o2 nc skin- left dressing undone, she has gauze over wound that has dried orange presumed serosanguinous fluid and then small spot bright red presumed blood. no active bleeding, + ecchymosis, no appreciable hematoma neuro- AAOx3 - Assessment and Plan (1) CHF (congestive heart failure) Current Visit: Yes Status: Acute (2) Anemia Current Visit: Yes Status: Acute (3) Atrial fibrillation Current Visit: Yes Status: Resolved (4) Chronic respiratory failure Current Visit: Yes Status: Chronic (5) Hematoma of leg Current Visit: Yes Status: Acute - Summary of Assessment and Plan Summary of Assessment and Plan: Acute Blood Loss Anemia hemodynamically stable post 1 unit prbc / Hgb now uptrending -stable w trial lovenox bridge -close monitoring for LLE bleeding -am hgb check, sooner if any changes as noted above Afib with RVR, resolved, now Sinus Bradycardia, asx Subtherapeutic INR with AC previously held and reversed due to above -cont sotalol + BB, IF goes back in to afib rvr with subtherapeutic INR cards will need notified and sotalol stopped -cont warfarin tonight and bridge with lovenox -she will require cards follow up at ri Leg hematoma s/p evacuation of superficial left medial leg hematoma- appreciate surgery input, she will need to see Dr Thomson 2 weeks from ri, monitor for change in LLE sxs/exam and contact surgery if acute changes suspected Acute on Chronic Diastolic CHF, most likley related to her getting prbcs and lasix not being given daily She has chronic le edema and wears rhona hose at home, on chronic steroid and daily lasix As reviewed by cards her weight is actually less than outpt visits recently Overall down 4kg this admit Suspect mild chf exacerbation -cont daily lasix PO, strict i/os (not being accurately recorded), daily weights Chronic Resp failure at baseline with hx chf and asthma home o2 is 3L NC continuously -cont supplemental o2 vte ppx- AC as above dispo- pt/ot eval rec home with [facility] on dc requires inpt monitoring for bleeding while bridging to therapeutic inr Internal Medicine: Result - Labs CBC & Chem 7: 09/15/18 08:51 09/15/18 08:51 - ABG Interpretation ABG results: PT/INR, D-dimer PT 10.9 Seconds (9.4-12.1) 09/14/18 04:30 Consult Discharge Plan - Plan Referrals: Neville Thomson MD [Non-Partnered Physician] - (2 weeks after d/c) Aleksandar Strickland DO [Primary Care Provider] - (1) CHF (congestive heart failure) Qualifiers: Heart failure type: diastolic Heart failure chronicity: acute on chronic Qualified Code(s): I50.33 - Acute on chronic diastolic (congestive) heart failure (2) Anemia Qualifiers: Anemia type: other cause Other causes of anemia: acute posthemorrhagic Qualified Code(s): D62 - Acute posthemorrhagic anemia (3) Atrial fibrillation Qualifiers: Atrial fibrillation type: persistent Qualified Code(s): I48.1 - Persistent atrial fibrillation (4) Chronic respiratory failure Qualifiers: Respiratory failure complication: hypoxia Qualified Code(s): J96.11 - Chronic respiratory failure with hypoxia (5) Hematoma of leg Qualifiers: Encounter type: initial encounter Laterality: left Qualified Code(s): S80.12XA - Contusion of left lower leg, initial encounter
[2018-09-15] MEDS: Metoprolol XL (24 HR) Succ 25 MG TAB.ER.24H PO SCH (08:38)
[2018-09-15] MEDS: predniSONE 20 MG TABLET PO SCH (08:39)
[2018-09-15] MEDS: Furosemide 40 MG TABLET PO SCH (08:40)
[2018-09-15] MEDS: *HR* HYDROcodone/Acet 5/325 mg TABLET PO PRN ×3 (08:45→16:57)
[2018-09-15 09:28] LABS: Basophils % 0.4 %; Eosinophils % 0.2 %; Hemoglobin 9.5 g/dL (11.5-15.4); Immature Granulocytes % 3.3 % (0-4); Lymphocytes # 1.2 K/mcL (0.6-4.6); Lymphocytes % 12.4 %; Mean Corpuscular HGB Conc 30.6 g/dL (31.6-35.5); Mean Corpuscular Hemoglobin 28.5 pg (28.0-33.3); Mean Corpuscular Volume 93.1 fL (83.0-100.0); Mean Platelet Volume 9.7 fL (9.4-12.4); Monocytes # 0.7 K/mcL (0.0-1.3); Monocytes % 6.8 %; Neutrophils # 7.6 K/mcL (1.6-8.9); Nucleated Red Blood Cells 0.5 /100 WBC (0); Platelet Count 240 K/mcL (140-400); Red Blood Count 3.33 M/mcL (3.82-4.97); Red Cell Distribution Width 15.6 % (11.5-14.5); Segmented Neutrophils % 76.9 %; White Blood Count 9.9 K/mcL (4.3-11.1)
[2018-09-15 09:38] LABS: INR 1.2; Prothrombin Time 13.7 Seconds (9.4-12.1)
[2018-09-15 09:43] LABS: BUN/Creatinine Ratio 40 (6-26); Blood Urea Nitrogen 35 mg/dL (8-23); Calcium 8.8 mg/dL (8.6-10.3); Carbon Dioxide 33 mEq/L (23-29); Chloride 102 mEq/L (98-107); Glucose 168 mg/dL (70-105); Magnesium 2.3 mg/dL (1.6-2.6); Osmolality,Calculated 304 (280-300); Sodium 141 mEq/L (136-145); eGFR For African Americans > 60 (> 60); eGFR For Non-African Americans > 60 (> 60)
[2018-09-15] MEDS ORDERED: *HR* Warfarin 2.5 MG TABLET PO ONE (18:00)
[2018-09-15] MEDS ORDERED: 0.9 % Sodium Chloride 500 ML ONE (21:23)
--- NOTE | 2018-09-15 21:50 | Event Note ---
Date of Encounter: 09/15/18 Time of Encounter: 21:46 Notified by nurse of patient's blood pressure in the 70s with automatic cuff and unable to obtain manual. Patient also stating she does not feel right and is diaphoretic. Assessed patient at bedside. Heart rate also increased at 115. IV fluid bolus, labs, blood gas, EKG ordered. Patient reports improvement of her symptoms following fluid bolus and her blood pressure has responded appropriately. Continue telemetry monitoring. Nurse to notify of any changes.
[2018-09-15] MEDS ORDERED: 0.9 % Sodium Chloride 500 ML IVC ONE ×2 (22:00→22:31)
[2018-09-15 22:12] LABS: INR 1.3; Prothrombin Time 15.3 Seconds (9.4-12.1)
[2018-09-15 22:14] LABS: ABG Base Excess -11 mEq/L (-2 to 3); ABG HCO3 14 mEq/L (21-27); ABG Oxygen Saturation 99 % (95-98); ABG PCO2 29 mmHg (35-45); ABG PO2 149 mmHg (85-104); ABG TCO2 15 mEq/L (20-26)
[2018-09-15 22:51] LABS: Hematocrit 23.5 % (35.3-44.9); Mean Corpuscular HGB Conc 29.8 g/dL (31.6-35.5); Mean Corpuscular Hemoglobin 28.7 pg (28.0-33.3); Mean Platelet Volume 9.7 fL (9.4-12.4); Platelet Count 273 K/mcL (140-400); Red Blood Count 2.44 M/mcL (3.82-4.97); Red Cell Distribution Width 15.5 % (11.5-14.5); White Blood Count 16.8 K/mcL (4.3-11.1)
[2018-09-15 22:52] LABS: Mean Corpuscular Volume 96.3 fL (83.0-100.0)
[2018-09-15 23:31] LABS: Albumin 2.6 g/dL (3.5-5.7); Albumin/Globulin Ratio 1.6 (1.1-2.2); Bilirubin,Total 0.3 mg/dL (0.3-1.0); Calcium 8.1 mg/dL (8.6-10.3); Globulin 1.6 g/dL (2.4-3.5); Potassium 5.3 mEq/L (3.5-5.1); Total Protein 4.2 g/dL (6.4-8.9)
[2018-09-15] MEDS ORDERED: 0.9 % Sodium Chloride 250 ML ONE (23:38)
[2018-09-16 00:17] VITALS: BP 82/54
[2018-09-16] MEDS ORDERED: *HR* Atropine Sulfate 1 MG/10 ML SYRINGE IV ONE (01:05)
[2018-09-16] MEDS ORDERED: *HR* EPINEPHrine 1 MG/10 ML SYRINGE IVP ONE ×2 (01:05)
[2018-09-16] MEDS ORDERED: *HR* Amiodarone 150 MG/3 ML VIAL IVPB ONE (01:05)
--- NOTE | 2018-09-16 02:27 | Event Note ---
Date of Encounter: 09/16/18 Time of Encounter: 00:39 Basim pina called to patient's room, patient became unresponsive. ACLS initiated. Patient underwent multiple rounds of compressions, epinephrine and was intubated. Patient had a brief episode of vtach on the monitor and was shocked x1. Compressions resumed, epinephrine given, with brief period of pulse return. Patient's pulse was lost again, and chest compressions resumed. No appreciable pulse was detected again, and patient was pronounced at 1:06am.
--- NOTE | 2018-09-16 14:27 | Death Note ---
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 CArdiology was consulted and helped to manage resolution of this presenting illness. On admit she had acute on chronic diastolic CHF in setting of afib rvr. She was treated with cardizem gtt, beta annalee and sotalol with dose adjustments. She was continued on anticoagulation with Coumadin. Gentle diuresis and sodium diet were recommended. She weaned off cardizem gtt and did convert to NSR which was maintained on Sotalol and Beta Annalee. She did not require DCCV. Her INR was below goal and she was bridged with Lovenox with continued coumadin dosing per pharmacy. On 09/07/18 she developed a small left tibial hematoma that worsened requiring acute care surgery to eval pt and preform evacuation of superficial hematoma 09/09/18. The morning following procedure her hgb dropped to in the 5s and she received prbc transfusion and coumadin was reversed. this was a complicated situation as she was on sotalol, in NSR but on Sotalol and as per discussions with cardiology very high risk stroke if converted back to afib without anticoagulation. Pt had grave concerns about stroke risk off AC but understood risk of bleeding/. Plan in place as discussed with patient and all teams involved was to bridge with lovenox and close monitoring once cleared by surgery to resume anticoagulation. On 09/11/18 she was cleared by surgery to trial anticoagulation. Lovenox bridge ordered and following morning Hgb did drop to 7.9 from 9.4 and further bridge dosing was held. After much discussion with pt about her concerns for stroke in not fully coagulated, she was agreeable to cont warfarin without bridge to begin to bring up INR slowly while watching Hgb closely, leg and for other signs of bleeding, given she remained in NSR. She was given a unit prbc to achieve hgb of 8 to help prevent her going back into afib when not anticoagulated. Hgb proved to stay stable after transfusion and Lovenox bridge trial was again began 09/14/18. She had oozing from leg but no bleeding and no reaccumulation of hematoma. She did not demonstrate clinically any signs of bleeding and had no symptom complaints. She had been tolerating the medication well, hgb uptrended further without intervention to 9.5 on 09/15, she was clinically improved to baseline with stable vital signs and absolutely no complaints. She had an uneventful 48 hrs prior to her passing and was awaiting therapeutic INR for discharge to home. Overnight -09/16 early am she without warning had hypotension and diaphroesis. Overnight team managed rapid response with fluids, labs and frequent monitoring of patient as they have independently documented and with discovery of sudden hgb drop to 7 since morning began blood transfusion. She appeared to improve per documentation but then suddenly lost her pulse and suffered cardiac arrest. See code docum entation for full details. FAmily was present with her throughout night. - Additional Data Confirmation of as documented by pronouncing clinician: no pulse Family: at bedside Attending/PCP notified?: Yes (attending notified at change of shift 07:00 ) Attending physician: Dia Emanuel Was code activated?: Yes Autopsy requested?: No (as per nursing check list documentation) life claims examiner notified?: No (as per nursing check list documantation) Organ bank notified?: Yes (as per nursing check list documentation) Advance directives: Yes (Full Code) Hospice patient?: No Discharge Sum: Diag - PCOD Probable Cause of : Hypovolemic shock Discharge Sum: Prov - Provider Primary care physician: Aleksandar Strickland DO Admitting clinician: Sylvester Tirado Attending physician on admission: Danilo Livingston Consults: 09/03/18 19:13 Consult to Cardiology [CONS] Stat Comment: Consulting Provider: Cardiology [facility]ra Reason for Consult: atrial fibrillation Time Notified: 19:13 Call Completed: Yes 09/03/18 21:28 Consult to [employer] [CONS] Routine Reason for SW Consult: [employer]L [employer]; [facility] 09/04/18 10:20 Consult to Electrophysiology (EP) [CONS] Routine Consulting Provider: Electrophysiology Sayra Reason for Consult: afib Call Completed: Yes 09/04/18 15:14 Consult to Invasive Line Access Team [CONS] Routine Reason for Consult: Limited vascular access Line Type: EPIV 09/09/18 09:14 Consult to Surgery [CONS] Routine Consulting Provider: Surgery [facility] Surgical Reason for Consult: Evacuation of Hematoma Call Completed: Yes 09/09/18 16:03 Consult to Nurse Navigator [CONS] Routine Comment: CHF 09/11/18 18:49 Consult to Occupational Therapy [CONS] Routine Comment: Evaluate, develop and implement POC Reason for Consult: Rehabilitation assessment Does patient have active BEDREST order?: No Is patient medically & hemodynamically stable?: Yes Consult to Physical Therapy [CONS] Routine Comment: Evaluate, develop and implement POC Reason for Consult: Rehabilitation assessment Does patient have active BEDREST order?: No Is patient medically & hemodynamically stable?: Yes Pronouncing clinician: Edis Talamantes
== END 2018-09-16 01:06 | disposition expired | DRG 308 ==
LOC: EMEROOARM 17:42 → 2ANU 17:42 → SUATTDRO 19:53 → 2ANU 20:10 → SUATTDRO 09-04 18:34
PROVIDERS: ADMIT Pediatrics; ATTEND Internal Medicine